=== PATIENT | male | born 1960 | race Two or more races ===

== ENCOUNTER 2016-05-30 20:31 | Emergency (ER) | payer MEDICARE, MEDICAID ==
[~2016-05-30] VITALS: Ht 170.2 cm; Wt 79.4 kg
[2016-05-30 21:31] VITALS: BP 121/80
[2016-05-30 21:41] LABS: EOSINOPHILS % (AUTO) 2.1 % (0.0-3.0); LYMPHOCYTES % (AUTO) 11.7 % (20.0-45.0); MEAN CORPUSCULAR HGB CONC 30.4 G/DL (32.0-36.0); MEAN CORPUSCULAR VOLUME 86 FL (80-99); MEAN PLATELET VOLUME 7.5 FL (6.5-10.1); MONOCYTES % (AUTO) 7.7 % (1.0-10.0); NEUTROPHILS % (AUTO) 77.6 % (45.0-75.0); PLATELET COUNT 220 K/UL (150-450); RED BLOOD COUNT 4.39 M/UL (4.70-6.10); RED CELL DISTRIBUTION WIDTH 15.1 % (11.6-14.8)
[2016-05-30 21:54] LABS: ALANINE AMINOTRANSFERASE 30 U/L (3-41); ALBUMIN/GLOBULIN RATIO 0.7 (1.0-2.7); ASPARTATE AMINO TRANSFERASE 35 U/L (5-40); CARBON DIOXIDE 25 mEQ/L (20-30); CHLORIDE 116 mEQ/L (98-107); GLOMERULAR FILTRATION RATE > 60 mL/min (>60); HEMOLYSIS 15; POTASSIUM 4.4 mEQ/L (3.4-4.9); SODIUM 130 mEQ/L (135-145); TOTAL PROTEIN 8.2 g/dL (6.6-8.7)
[2016-05-30 22:22] LABS: ABG ALLEN TEST POSITIVE; ABG BASE EXCESS 0; ABG PCO2 32.7 mmHg (35.0-45.0)
[2016-05-30] MEDS ORDERED: LEVETIRACETAM IVPB ONE (22:45)
[2016-05-30] MEDS ORDERED: D5W IVPB ONE (22:45)
[2016-05-30] MEDS ORDERED: levETIRAcetam 500mg vial IV ONE (23:13)
[2016-05-30 23:57] VITALS: BP 126/80
--- NOTE | 2016-06-02 06:44 | Emergency Room Report ---
History of Present Illness General Chief Complaint: Altered Level of Consciousness Source: Medical Record, EMS Present Illness HPI Patient is a 55-year-old male who presented after a reported altered level of consciousness. Patient recently been discharged from [facility] after being treated for subdural hematoma. The patient was noted to have had been taking Keppra. There is no seizure activity noted. The patient was sent in by her nursing facility who had had not seen the patient previously. Allergies: Coded Allergies: No Known Allergies (Unverified , 05/30/16) Nursing Documentation-[facility] Past Medical History: No History, Except For Hx Cardiac Problems: Yes - Skull fracture Hx Hypertension: Yes Hx Diabetes: Yes Review of Systems All Other Systems: limited - by mental status Physical Exam Vital Signs Date Time Temp Pulse Resp B/P Pulse Ox O2 Delivery O2 Flow Rate FiO2 05/30/16 20:25 107 14 121/80 97 Nasal Cannula 2.0 05/30/16 21:31 97.5 Sp02 EP Interpretation: reviewed, normal General Appearance: normal inspection, well appearing, no apparent distress, non-toxic, other - GCS [id number] Head: atraumatic Eyes: bilateral eye PERRL ENT: normal ENT inspection, hearing grossly normal, normal voice Neck: normal inspection, full range of motion, supple, no bony tend Respiratory: normal inspection, lungs clear, normal breath sounds, no respiratory distress, no retraction, no wheezing Cardiovascular #1: regular rate, rhythm, no edema Gastrointestinal: normal inspection, normal bowel sounds, non tender, soft, no guarding, no hernia Genitourinary: no CVA tenderness Musculoskeletal: normal inspection, back normal, normal range of motion Neurologic: normal inspection, alert, responsive, speech normal, oriented - to name Psychiatric: normal inspection, judgement/insight normal, mood/affect normal Skin: normal inspection, normal color, no rash Medical Decision Making Diagnostic Impression: Primary Impression: Encephalopathy Additional Impression: Post traumatic encephalopathy ER Course Patient presented for reported altered mental status.Differential diagnosis included but was not limited to ischemic stroke, subarachnoid hemorrhage, hypoglycemia, spinal cord injury, neurodegenerative disorder, urinary tract infection, hypoxemia. The patient was given IV Keppra in the emergency department. The patient was noted to have improvement in his mental status. Per the patient's old records the patient had waxing and waning mental status and appears to be at his baseline from discharge from [facility]. The patient was sent back to his facility. Last Vital Signs Date Time Temp Pulse Resp B/P Pulse Ox O2 Delivery O2 Flow Rate FiO2 05/30/16 23:57 97.5 80 18 126/80 99 Nasal Cannula 2.0 Status: improved Disposition: XFER SNF Condition: Stable Patient Instructions: Head Injury, Adult Iain Meyers Jun 02, 2016 06:44
== END 2016-05-31 00:04 ==
LOC: EDBD 20:31 → EMR 21:00
DX: G93.40 Encephalopathy, unspecified (principal); F07.81 Postconcussional syndrome; I10 Essential (primary) hypertension; E11.9 Type 2 diabetes mellitus without complications
CPT/HCPCS: 36415; 36600; 80053; 80300; 82803; 85025; 96374; 96375; 99284; J1953

== ENCOUNTER 2016-06-07 17:45 | Inpatient (IN) | payer MEDICARE, MEDICAID ==
[~2016-06-07] VITALS: Ht 180.3 cm; Wt 74.8 kg
[2016-06-07 18:57] LABS: MEAN CORPUSCULAR HEMOGLOBIN 25.3 PG (27.0-31.0); MEAN CORPUSCULAR HGB CONC 29.5 G/DL (32.0-36.0); MEAN CORPUSCULAR VOLUME 86 FL (80-99); MEAN PLATELET VOLUME 11.7 FL (6.5-10.1); PLATELET COUNT 66 K/UL (150-450); RED CELL DISTRIBUTION WIDTH 16.9 % (11.6-14.8); WHITE BLOOD COUNT 14.5 K/UL (4.8-10.8)
[2016-06-07 18:58] LABS: APPEARANCE,URINE CLEAR; KETONES,URINE NEGATIVE (NEGATIVE); LEUKOCYTE ESTERASE ,URINE 1+ (NEGATIVE); NITRITE,URINE NEGATIVE (NEGATIVE); PH,URINE 5 (4.5-8.0); PROTEIN,URINE 2+ (NEGATIVE); UROBILINOGEN,URINE 1 MG/DL (0.0-1.0)
[2016-06-07 19:15] LABS: AMORPHOUS SEDIMENT,UR FEW /LPF; BACTERIA,URINE FEW /HPF
[2016-06-07 19:24] VITALS: BP 104/67
[2016-06-07 19:24] LABS: ALANINE AMINOTRANSFERASE 43 U/L (3-41); ALBUMIN/GLOBULIN RATIO 0.8 (1.0-2.7); ANION GAP 30 (5-15); ASPARTATE AMINO TRANSFERASE 33 U/L (5-40); CALCIUM 10.3 mg/dL (8.6-10.2); CARBON DIOXIDE 12 mEQ/L (20-30); CHLORIDE 122 mEQ/L (98-107); CREATININE 5.6 mg/dL (0.7-1.2); GLOMERULAR FILTRATION RATE 10.5 mL/min (>60); HEMOLYSIS 8; MAGNESIUM 3.6 mg/dL (1.7-2.5); POTASSIUM 5.5 mEQ/L (3.4-4.9); TOTAL PROTEIN 9.1 g/dL (6.6-8.7)
[2016-06-07 19:33] LABS: SODIUM 164 mEQ/L (135-145)
--- NOTE | 2016-06-07 19:52 | Emergency Room Report ---
History of Present Illness General Chief Complaint: Altered Level of Consciousness Source: Medical Record, EMS Present Illness HPI 55 YO M BIBEMS for AMS. History of DM. No other history from patient, EMS unable to est access. No other interventions. Allergies: Coded Allergies: No Known Allergies (Unverified , 05/30/16) Patient History Past Medical History: unable to obtain, DM Past Surgical History: unable to obtain Pertinent Family History: unable to obtain Immunizations: UTD Reviewed Nursing Documentation: PMH: Agreed, PSxH: Agreed Nursing Documentation-PMH Hx Cardiac Problems: Yes - Skull fracture, muscle weakness Hx Hypertension: Yes Hx Diabetes: Yes Hx Seizures: Yes Review of Systems All Other Systems: limited - AMS Physical Exam Vital Signs Date Time Temp Pulse Resp B/P Pulse Ox O2 Delivery O2 Flow Rate FiO2 06/07/16 17:41 106 16 100/68 97 Nasal Cannula 2.0 06/07/16 18:51 100 Sp02 EP Interpretation: reviewed, abnormal General Appearance: normal inspection, well appearing, moderate distress Head: normocephalic, atraumatic Eyes: bilateral eye EOMI, bilateral eye PERRL ENT: normal ENT inspection, hearing grossly normal, normal voice Neck: normal inspection, full range of motion, supple, no bony tend Respiratory: normal inspection, lungs clear, normal breath sounds, no rhonchi, no respiratory distress, no retraction, no wheezing Cardiovascular #1: regular rate, rhythm, no edema Gastrointestinal: normal inspection, normal bowel sounds, non tender, soft, no guarding, no hernia Genitourinary: no CVA tenderness Neurologic: normal inspection, alert, faucet polisher III-XII nml as tested, motor strength /tone normal Skin: normal inspection Procedures Critical Care Time Critical Care Time 60 minutes Care for a 55 YO M with known DM history BIBEMS for AMS VS tachycardic, hypoxic, normotensive DDx includes ACS, infection, DKA Patient is disoriented, no obvious sign of trauma. Comprehensive physical exam completed, atraumatic. Unreliable history from patient. Labs include CBC, toxicology and chem panel, EKG 12 lead and constant cardiac rhythm strip monitoring, IV established. Airway adequately maintained by patient upon arrival. EKG reveals sinus tach Physician spent 60 minutes of direct critical care time monitoring patient's respiratory, cardiac and neurological status, reassessment, review of imaging, labs and discussion with attending hospitalist. Care included start of insulin gtt, metabolic management, admit to ICU Does not include procedures Medical Decision Making Diagnostic Impression: Primary Impression: Altered level of consciousness Additional Impressions: DKA (diabetic ketoacidoses) Qualified Codes: E13.10 - Other specified diabetes mellitus with ketoacidosis without coma Leukocytosis Qualified Codes: D72.829 - Elevated white blood cell count, unspecified ER Course 55 YOM with AMS found to be in DKA. Elevated glucose, bicarb 12, K 5.5, Na 164 , creat 5.6 2L IVF bolus given IV insulin gtt started ICU admission No obvious source of infection on CXR, UA. However given mild leuks 14K, IV levo given in ED against empiric infection Endorsed to Dr Del Cid at 831pm EKG Diagnostic Results Rate: normal, tachycardiac Rhythm: NSR ST Segments: no acute changes ASA given to the pt in ED: No Rhythm Strip Diag. Results EP Interpretation: yes Rate: 106 Rhythm: NSR, no PVC's, no ectopy Chest X-Ray Diagnostic Results EP Interpretation: Yes Findings: no consolidation, no effusion, no pneumothorax, no acute cardiopulmonary disease Number of Views: 1 Last Vital Signs Date Time Temp Pulse Resp B/P Pulse Ox O2 Delivery O2 Flow Rate FiO2 06/07/16 19:24 108 17 104/67 66 Non-Rebreather 15.0 100 Status: improved Disposition: ADMITTED INPATIENT Condition: Critical Referrals: RYANN FANG M.D. (PCP) GEORGETTE DELA CRUZ M.D. Jun 07, 2016 19:51
[2016-06-07 19:53] LABS: ABG ALLEN TEST POSITIVE; ABG BASE EXCESS -11.4; ABG PCO2 27.9 mmHg (35.0-45.0)
[2016-06-07] MEDS ORDERED: SENNA8.6 M2 PO (20:40)
[2016-06-07] MEDS ORDERED: METOPROLOL TAR100 M1 ORAL (20:40)
[2016-06-07] MEDS ORDERED: KEPPRA500 M4 ORAL (20:40)
[2016-06-07] MEDS ORDERED: LANTUS SOL100 UNIT/1 SUBQ (20:40)
[2016-06-07] MEDS ORDERED: TYLENOL650 MG/20. ORAL (20:40)
[2016-06-07] MEDS ORDERED: COLACE100 MG ORAL (20:40)
[2016-06-07] MEDS ORDERED: ALL DRIPS IN NORMAL SALINE MISC PRN (20:45)
[2016-06-07] MEDS: Levemir Flexpen SUBQ SCH (21:00)
[2016-06-07 21:08] VITALS: BP 124/77
[2016-06-07 21:20] VITALS: BP 111/68
[2016-06-07 22:27] LABS: ABG BASE EXCESS -11.9; ABG PCO2 28.7 mmHg (35.0-45.0)
[2016-06-07 22:31] LABS: ANISOCYTOSIS 1+; BAND NEUTROPHILS % (MANUAL) 3 % (0-8); LYMPHOCYTES % (MANUAL) 15 % (20-45); NEUTROPHILS % (MANUAL) 78 % (45-75); PLATELET MORPHOLOGY NORMAL; TOTAL CELLS COUNTED 100
[2016-06-07 22:32] LABS: BASOPHILS % (MANUAL) 0 % (0-2); EOSINOPHILS % (MANUAL) 0 % (0-3); PLATELET ESTIMATE DECREASED
[2016-06-07 23:00] VITALS: BP 112/83
[2016-06-08] VITALS (23 sets, daily range): BP systolic 76–117; BP diastolic 37–80
[2016-06-08] MEDS ORDERED: D5 1/2NS 1,000 ML IV SCH (02:30)
[2016-06-08 05:55] LABS: CALCIUM 8.8 mg/dL (8.6-10.2); CREATININE 4.8 mg/dL (0.7-1.2); GLOMERULAR FILTRATION RATE 12.6 mL/min (>60); POTASSIUM 4.4 mEQ/L (3.4-4.9)
[2016-06-08] MEDS ORDERED: NS IVPB SCH (08:00)
[2016-06-08] MEDS ORDERED: ZOSYN IVPB SCH (08:00)
--- NOTE | 2016-06-08 08:07 | General Progress Note ---
Assessment/Plan Problem List: (1) Acute renal failure ICD Codes: N17.9 - Acute kidney failure, unspecified SNOMED: 97403958 Qualifiers: Qualified Codes: N17.0 - Acute kidney failure with tubular necrosis (2) Encephalopathy ICD Codes: G93.40 - Encephalopathy, unspecified SNOMED: 47075777, 731060389 (3) DKA (diabetic ketoacidoses) ICD Codes: E13.10 - Other specified diabetes mellitus with ketoacidosis without coma SNOMED: 871438409, 87942179 Qualifiers: Qualified Codes: E13.11 - Other specified diabetes mellitus with ketoacidosis with coma (4) Leukocytosis ICD Codes: D72.829 - Elevated white blood cell count, unspecified SNOMED: 715868965, 690419696 Qualifiers: Qualified Codes: D72.829 - Elevated white blood cell count, unspecified (5) Altered level of consciousness ICD Codes: R40.4 - Transient alteration of awareness SNOMED: 4061288 Status: progressing Assessment/Plan cont aggressive IVF insulin drip IV abx follow up cultures endo and renal eval pending critical and guarded monitor labs wean o2 renal reinaldo Subjective ROS Limited/Unobtainable: Yes Constitutional: Reports: malaise, weakness HEENT: Reports: no symptoms Cardiovascular: Reports: no symptoms Respiratory: Reports: cough, shortness of breath Gastrointestinal/Abdominal: Reports: no symptoms Genitourinary: Reports: no symptoms Neurologic/Psychiatric: Reports: pre-existing deficit, seizure Endocrine: Reports: no symptoms Hematologic/Lymphatic: Reports: no symptoms Allergies: Coded Allergies: No Known Allergies (Unverified , 05/30/16) All Systems: reviewed and negative except above Subjective remains on insulin drip. o2 requirements. confused. labs reviewed. decreased uop. Objective Last 24 Hour Vital Signs Date Time Temp Pulse Resp B/P Pulse Ox O2 Delivery O2 Flow Rate FiO2 06/08/16 06:38 115 21 117/80 100 Nasal Cannula 2.0 06/08/16 05:00 97.7 106 29 99/66 98 Nasal Cannula 2.0 06/08/16 04:00 108 22 100/73 95 Nasal Cannula 2.0 06/08/16 03:00 109 21 108/80 98 Nasal Cannula 4.0 06/08/16 02:00 108 21 108/75 96 Nasal Cannula 4.0 06/08/16 01:00 106 21 108/73 94 Room Air 06/08/16 00:00 105 22 105/73 95 Room Air 06/07/16 23:00 108 22 112/83 96 Room Air 06/07/16 21:20 98.7 108 26 111/68 99 Room Air 06/07/16 21:08 110 18 124/77 79 Non-Rebreather 15.0 100 06/07/16 19:24 108 17 104/67 66 Non-Rebreather 15.0 100 06/07/16 19:00 96 Non-Rebreather 15.0 100 06/07/16 19:00 Non-Rebreather 15.0 100 06/07/16 18:51 115 15 Non-Rebreather 15.0 100 06/07/16 17:41 106 16 100/68 97 Nasal Cannula 2.0 Intake and Output 06/07/16 06/08/16 19:00 07:00 Intake Total 50 ml Output Total 20 ml Balance -20 ml 50 ml Intake IV Total 50 ml Output Urine Total 20 ml Laboratory Tests 06/07/16 18:15: White Blood Count 14.5H, Red Blood Count 5.10, Hemoglobin 12.9L, Hematocrit 43.7 , Mean Corpuscular Volume 86, Mean Corpuscular Hemoglobin 25.3L, Mean Corpuscular Hemoglobin Concent 29.5L, Red Cell Distribution Width 16.9H, Platelet Count 66L, Mean Platelet Volume 11.7H, Neutrophils (%) (Auto) , Lymphocytes (%) (Auto) , Monocytes (%) (Auto) , Eosinophils (%) (Auto) , Basophils (%) (Auto) , Differential Total Cells Counted 100, Neutrophils % ( Manual) 78H, Lymphocytes % (Manual) 15L, Monocytes % (Manual) 4, Eosinophils % ( Manual) 0, Basophils % (Manual) 0, Band Neutrophils 3, Platelet Estimate DecreasedL, Platelet Morphology Normal, Anisocytosis 1+, Sodium Level 164*H, Potassium Level 5.5H, Chloride Level 122H, Carbon Dioxide Level 12L, Anion Gap 30H, Blood Urea Nitrogen 96H, Creatinine 5.6H, Estimat Glomerular Filtration Rate 10.5, Glucose Level 612*H, Calcium Level 10.3H, Magnesium Level 3.6H, Total Bilirubin 0.9, Aspartate Amino Transf (AST/SGOT) 33, Alanine Aminotransferase (ALT/SGPT) 43H, Alkaline Phosphatase 175H, Total Protein 9.1H, Albumin 4.1, Globulin 5.0, Albumin/Globulin Ratio 0.8L, Acetone Level Negative 06/07/16 18:40: Urine Color Yellow, Urine Appearance Clear, Urine pH 5, Urine Specific [place] 1.025, Urine Protein 2+H, Urine Glucose (UA) 3+H, Urine Ketones Negative, Urine Occult Blood 3+H, Urine Nitrite Negative, Urine Bilirubin Negative, Urine Urobilinogen 1H, Urine Leukocyte Esterase 1+H, Urine RBC 5-10H, Urine WBC 2-4, Urine Squamous Epithelial Cells None, Urine Amorphous Sediment FewH, Urine Bacteria Few 06/07/16 19:42: Arterial Blood pH 7.289L, Arterial Blood Partial Pressure CO2 27.9L, Arterial Blood Partial Pressure O2 294.4H, Arterial Blood HCO3 13.9L, Arterial Blood Oxygen Saturation 99.2H, Arterial Blood Base Excess -11.4, Tommy Test Positive 06/07/16 22:00: Arterial Blood pH 7.287L, Arterial Blood Partial Pressure CO2 28.7L, Arterial Blood Partial Pressure O2 77.9, Arterial Blood HCO3 13.4L, Arterial Blood Oxygen Saturation 92.7, Arterial Blood Base Excess -11.9, Tommy Test N/a 06/08/16 05:20: Sodium Level 168*H, Potassium Level 4.4, Chloride Level 133H, Carbon Dioxide Level 16L, Anion Gap 19H, Blood Urea Nitrogen 92H, Creatinine 4.8H, Estimat Glomerular Filtration Rate 12.6, Glucose Level 269#H, Calcium Level 8.8 Height (Feet): 5 Height (Inches): 11.00 Weight (Pounds): 165 General Appearance: WD/WN, confused Neck: supple Cardiovascular: tachycardia Respiratory/Chest: rhonchi - bilaterally Abdomen: normal bowel sounds, non tender, soft, no organomegaly, no mass Edema: no edema noted Arm (L), no edema noted Arm (R), no edema noted Leg (L), no edema noted Leg (R), no edema noted Pedal (L), no edema noted Pedal (R), no edema noted Generalized Neurologic: disoriented Skin: warm/dry DARYN JEREZ Jun 08, 2016 08:07
[2016-06-08] MEDS ORDERED: Zosyn 2.25gm inj ONE (08:09)
[2016-06-08] MEDS ORDERED: Docusate 100mg cap ORAL SCH (09:00)
[2016-06-08] MEDS: Levemir Flexpen SUBQ SCH ×2 (09:00→21:09)
[2016-06-08 09:26] LABS: ABG BASE EXCESS -11.9
[2016-06-08] MEDS: levETIRAcetam 500mg/5ml Liquid NG SCH ×2 (11:08→21:07)
[2016-06-08] MEDS: Docusate 100mg tablet NG SCH ×2 (11:08→17:29)
[2016-06-08] MEDS: Insulin Rate Change 1 Each MISC PRN ×9 (12:09→21:11)
[2016-06-08] MEDS ORDERED: Piperacillin/Tazobactam 2.25 GM in D5W 55 ML IVPB SCH (14:00)
--- NOTE | 2016-06-08 20:18 | History and Physical Report ---
DATE OF ADMISSION: 06/07/2016 HISTORY OF PRESENT ILLNESS: This patient was seen in the emergency room on 06/07/2016 in the evening at approximately 9 o'clock. The patient is a 55-year-old male. He has a history of traumatic encephalopathy, diabetes, hypertension, seizure disorder, and hypertensive heart disease. He has prior evidence of a sternotomy. He presented from a care home facility with complaints of diabetes out of control. On evaluation in the emergency room, the patient was noted to be hypoxic and diabetic ketoacidosis. He was started on intravenous fluids and antibiotics. He will be started on insulin drip and is now admitted for further evaluation and care. He is confused and is unable to provide any history. PAST MEDICAL HISTORY: As above. PAST SURGICAL HISTORY: Includes a prior history of sternotomy. CURRENT MEDICATIONS: Reconciled and reviewed. ALLERGIES: None. FAMILY HISTORY: Unknown. SOCIAL HISTORY: There is no known history of tobacco, ethanol, or drugs. REVIEW OF SYSTEMS: Unobtainable, as the patient is confused. PHYSICAL EXAMINATION: VITAL SIGNS: Temperature 98 degrees, blood pressure 117/80, pulse of 115, and respirations 21. The patient is a chronic ill-appearing male, in no apparent distress. He is awake, but confused. HEENT: Pupils are equal, round, and reactive to light. Oropharynx is clear. NECK: Supple. HEART: Regular rate and rhythm. LUNGS: Scattered rhonchi. ABDOMEN: Soft, nontender, and nondistended. EXTREMITIES: Without clubbing, cyanosis, or edema. LABORATORY DATA: Sodium is 164, potassium 5.5, chloride 122, bicarb 12, BUN 96, creatinine 5.6, and glucose 612. White count was [address]. ASSESSMENT: 1. This is an elderly male admitted with diabetic ketoacidosis and possible sepsis post diabetic ketoacidosis. 2. Acute renal failure. 3. Sepsis. 4. Encephalopathy. PLAN: 1. Aggressive fluid resuscitation. 2. Continue insulin drip. 3. Endo, ID, Cardiology, and Renal consultations to be obtained. 4. The patient received DVT and stress ulcer prophylaxes. 5. Follow up cultures. 6. The patient's status is currently critical and guarded. Raul Del Cid M.D. DR: JORDAN JOB#: [id number] CC:
--- NOTE | 2016-06-08 20:37 | Consultation ---
DATE OF CONSULTATION: 06/08/2016 INFECTIOUS DISEASE CONSULTATION This consult is for coverage of Dr. Bowles. CONSULTING PHYSICIAN: Maxime Corbin M.D. PRIMARY ATTENDING PHYSICIAN: Raul Del Cid M.D. REASON FOR CONSULTATION: Sepsis. HISTORY OF PRESENT ILLNESS: The patient is a 55-year-old male admitted last night from nursing facility because of altered mental status. The patient was found to have hyperglycemia with a blood sugar of 612, hypernatremia, acute renal failure, was tachycardic, and had leukocytosis, admitted to ICU with the impression of the diabetic ketoacidosis and started empirically on antibiotic and receiving IV fluids. PAST MEDICAL HISTORY: Significant for diabetes mellitus type 2, hypertension, had history of brain injury and skull fracture, and had dysphagia. MEDICATIONS: Getting Colace, Keppra, metoprolol, regular insulin, IV drip, sodium chloride, and Levemir insulin. ALLERGIES: No known drug allergies. SOCIAL HISTORY: Unobtainable. No other history is obtainable by the patient. PHYSICAL EXAMINATION: VITAL SIGNS: Temperature 97.7 degrees, blood pressure 111/72, and pulse is 117. GENERAL APPEARANCE: Noncommunicative, confused, and seems well developed. HEAD AND NECK: [place] conjunctivae. Dry mouth. HEART: Tachycardic. The patient has a scar of thoracotomy. LUNGS: Clear. ABDOMEN: Soft and nontender. EXTREMITIES: He has no edema. He has peripheral line. NEUROLOGIC: Moves right upper extremity. LABORATORY DATA: WBC 14.5, hemoglobin 12.9, hematocrit 43.7, and platelets 66,000. Sodium 168, potassium 4.4, chloride 133, bicarbonate 16, BUN 92, and creatinine 4.8. Lipase 359. AST 32, ALT 43, and alkaline phosphatase is 175. Total protein is 9.1. Acetone was negative. UA showed RBC of 5 to 10, leukocyte esterase 1+, and WBC 2 to 4. Blood gas in addition to acidosis showed decreased pO2. IMPRESSION: Sepsis. Systemic inflammatory response syndrome, likely secondary to diabetic ketoacidosis. The patient has hypernatremia, acute renal failure, dehydration, thrombocytopenia, seems to have previous brain injury. RECOMMENDATIONS: We will continue with Zosyn. We will check up renal ultrasound. At the end of my exam, I thank Dr. Del Cid for involving me in the care of this patient. Maxime Corbin M.D. DR: LISA JOB#: [id number] CC:
[2016-06-08] MEDS: Metoprolol 25mg tab ORAL SCH (21:00)
[2016-06-08] MEDS: Piperacillin/Tazobactam 3.375 GM in NS 110 ML IVPB SCH (21:07)
[2016-06-09] VITALS (24 sets, daily range): BP systolic 94–139; BP diastolic 51–80
--- NOTE | 2016-06-09 00:57 | Consultation ---
DATE OF CONSULTATION: REFERRING PHYSICIAN: Raul Del Cid M.D. REASON FOR CONSULTATION: 1. Renal failure. 2. Diabetic ketoacidosis HISTORY OF PRESENT ILLNESS: The patient presents with lethargy and abnormal labs. There is only brief notes that came on transfer. The patient apparently had bilateral occipital fractures, bilateral traumatic hemorrhages, subdural hematoma, and prior intubation and treatment of the above, and traumatic encephalopathy. He also has coronary disease, history of prior coronary surgery, and left ventricular hypertrophy. The patient came to an [facility] on 05/31/2016 as transfer with diabetic ketoacidosis. He is unable to provide any further history. His problem list includes diabetes type 2, seizure disorder, hypertensive urgency, atherosclerotic heart disease, generalized muscle weakness, dysphagia, history of fall. MEDICATIONS: On transfer from the facility include the following, Lantus 30 units daily, Keppra 500 mg twice a day, metoprolol 7.5 mg twice a day, Seroquel 25 mg every eight hours as needed, as needed for Colace and senna, insulin sliding scale. REVIEW OF SYSTEMS: The patient is unable. PHYSICAL EXAMINATION: GENERAL: The patient is lying in bed in the ICU. VITAL SIGNS: Pulse 76, respirations 19, blood pressure 76/48, pulse oximetry 90% on two liters. HEENT: Oral mucosa is dry. Sclerae are nonicteric. NECK: No adenopathy. LUNGS: Clear. HEART: Regular rhythm. No murmur. ABDOMEN: Soft without organomegaly. EXTREMITIES: Trace edema. NEUROLOGIC: The patient is lethargic. He opens his eyes to irritative stimuli. He looks in all directions and appears to have facial asymmetry. He is weak in all four extremities. PERTINENT LABORATORY DATA: Show white count of 14.5, hemoglobin 12.9. Sodium 164, repeat 168, potassium 5.5, repeat 4.4, BUN 96, repeat 92, and creatinine 5.6, repeat 4.8 with a glucose of 612 repeat 269. Urinalysis shows 2 to 4 white cells, 5 to 10 red cells per high-power field, 2+ protein, 3+, glucose, acetone negative . IMPRESSION: 1. Acute kidney injury likely from dehydration and diabetic ketoacidosis or uncontrolled diabetes. 2. Uncontrolled diabetes. 3. Hypernatremia. 4. 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 5. Coronary disease. PLAN: The patient to have vigorous hydration, monitoring his glucose, watch him closely in view of his comorbid condition. Condition is grave. Detailed intensive care unit orders were reviewed and amended. Ed Sahu M.D. DR: Cassi JOB#: [id number] CC:
[2016-06-09] MEDS: Insulin Rate Change 1 Each MISC PRN ×14 (02:07→22:53)
--- NOTE | 2016-06-09 04:57 | Consultation ---
DATE OF CONSULTATION: 06/08/2016 CARDIOLOGY CONSULTATION REQUESTING PHYSICIAN: Raul Del Cid M.D. REASON: Hypotension. HISTORY OF PRESENT ILLNESS: Last evening, this 55-year-old male was admitted to the hospital with uncontrolled diabetes. He was noted to be hypoxic and in diabetic ketoacidosis. He was started on IV fluids, empiric antibiotics, and an insulin drip. This afternoon, he became progressively hypotensive. I have been asked to assist with further management. The patient is unable to give any history. Records are reviewed. PAST MEDICAL HISTORY: As follows: History of traumatic encephalopathy, history of median sternotomy, seizure disorder, hypertension, and insulin-requiring diabetes mellitus. ALLERGIES: None. MEDICATIONS: Reviewed. SOCIAL HISTORY: No record of smoking or alcohol use. No known history of drug abuse. REVIEW OF SYSTEMS: Not obtainable. PHYSICAL EXAMINATION: VITAL SIGNS: Blood pressure is 79/40, heart rate 77, respiratory rate 20, he is afebrile, and oxygen saturation is 98% on two liters nasal cannula. HEENT: Conjunctivae are pink. Sclerae are anicteric. Oropharynx clear. Mucous membranes dry. NECK: Supple. Jugular venous pressure flat. LUNGS: Clear. CHEST: The patient has a median sternotomy scar. CARDIAC: Regular rhythm and rate. Normal S1 and S2 with no murmur, rub, or gallop. ABDOMEN: Soft with no hepatomegaly. EXTREMITIES: With trace dependent edema. Early ischemic changes of distal digits. NEUROLOGIC: He is withdrawn, lethargic with some facial asymmetry. He is non-communicative. LABORATORY AND DIAGNOSTIC DATA: White count 14.5, hemoglobin 12.9. Sodium 168, potassium 4.4, BUN 92, creatinine 4.8, and glucose initially 612, now 269. Urinalysis only 2 to 4 white cells. Lipase 359. Chest x-ray with no acute process. IMPRESSION: 1. Sepsis. 2. Systemic inflammatory response syndrome. 3. Diabetic ketoacidosis. 4. Hypovolemic shock. 5. Severe dehydration and hypernatremia. 6. Thrombocytopenia. 7. Acute renal failure. 8. Encephalopathy due to prior traumatic brain injury. RECOMMENDATIONS: Recommend broad-spectrum antibiotics per Infectious Disease educational consultant. Fluid challenge. Once blood pressure is stabilized above 80 systolic, hypotonic IV fluids can be resumed. May need pressor support with dopamine if this is ineffective. DVT and stress ulcer prophylaxis in place. Diagnostic ultrasound for evaluation of of sepsis. Morales Serrano M.D. DR: PAYAM JOB#: [id number] CC: ESME
[2016-06-09 05:22] LABS: MEAN CORPUSCULAR HEMOGLOBIN 25.1 PG (27.0-31.0); MEAN CORPUSCULAR HGB CONC 30.6 G/DL (32.0-36.0); MEAN CORPUSCULAR VOLUME 82 FL (80-99); MEAN PLATELET VOLUME 10.2 FL (6.5-10.1); PLATELET COUNT 30 K/UL (150-450); RED BLOOD COUNT 3.67 M/UL (4.70-6.10); RED CELL DISTRIBUTION WIDTH 17.2 % (11.6-14.8); WHITE BLOOD COUNT 15.1 K/UL (4.8-10.8)
[2016-06-09 06:06] LABS: ALBUMIN/GLOBULIN RATIO 0.6 (1.0-2.7); CALCIUM 8.1 mg/dL (8.6-10.2); CREATININE 5.9 mg/dL (0.7-1.2); GLOMERULAR FILTRATION RATE 9.9 mL/min (>60); POTASSIUM 4.3 mEQ/L (3.4-4.9); TOTAL PROTEIN 6.6 g/dL (6.6-8.7)
[2016-06-09 06:58] LABS: TROPONIN I < 0.30 ng/mL (<=0.30)
[2016-06-09 07:25] LABS: ANISOCYTOSIS 1+; BAND NEUTROPHILS % (MANUAL) 0 % (0-8); BASOPHILS % (MANUAL) 0 % (0-2); EOSINOPHILS % (MANUAL) 0 % (0-3); HYPOCHROMASIA 2+; LYMPHOCYTES % (MANUAL) 12 % (20-45); NEUTROPHILS % (MANUAL) 86 % (45-75); NUCLEATED RED BLOOD CELLS 6 /100 WBC; PLATELET ESTIMATE DECREASED; PLATELET MORPHOLOGY NORMAL; TOTAL CELLS COUNTED 100
[2016-06-09] MEDS: Metoprolol 25mg tab ORAL SCH ×2 (08:10→21:37)
[2016-06-09] MEDS: levETIRAcetam 500mg/5ml Liquid NG SCH ×2 (08:15→21:37)
[2016-06-09] MEDS: Docusate 100mg tablet NG SCH ×2 (08:15→18:00)
[2016-06-09] MEDS: Piperacillin/Tazobactam 3.375 GM in NS 110 ML IVPB SCH ×2 (08:15→21:36)
[2016-06-09] MEDS: Pantoprazole Inj IVP SCH (08:16)
[2016-06-09] MEDS: Levemir Flexpen SUBQ SCH ×2 (08:19→21:20)
--- NOTE | 2016-06-09 11:31 | Infectious Diseases Prog Note ---
Assessment/Plan Assessment/Plan antibiotics : zosyn A 1. leucocytosis 2. renal failure 3. nasal MRSA colonization 4. increased LFT 5. thrombocytopenia P 1. continue zosyn 2. will follow up cultures 3. US abdomen Subjective ROS Limited/Unobtainable: Yes Allergies: Coded Allergies: No Known Allergies (Unverified , 05/30/16) Objective Vital Signs Last 24 Hour Vital Signs Date Time Temp Pulse Resp B/P Pulse Ox O2 Delivery O2 Flow Rate FiO2 06/09/16 11:00 87 25 111/63 100 Nasal Cannula 2.0 06/09/16 10:00 82 24 99/60 94 Nasal Cannula 2.0 06/09/16 09:00 84 24 101/51 92 Nasal Cannula 2.0 06/09/16 08:10 90 101/67 06/09/16 08:00 82 06/09/16 08:00 98.6 84 26 109/63 100 Nasal Cannula 2.0 06/09/16 07:00 84 26 115/63 100 Nasal Cannula 2.0 06/09/16 06:00 87 26 116/80 100 Nasal Cannula 2.0 06/09/16 05:00 84 26 114/52 99 Nasal Cannula 2.0 06/09/16 04:00 93 06/09/16 04:00 98.9 92 22 125/60 99 Nasal Cannula 2.0 06/09/16 03:00 94 25 102/62 97 Nasal Cannula 2.0 06/09/16 02:00 91 20 105/58 96 Nasal Cannula 2.0 06/09/16 01:00 90 30 107/64 95 Nasal Cannula 2.0 06/09/16 00:00 88 06/09/16 00:00 88 31 99/54 94 Nasal Cannula 2.0 06/08/16 23:00 98.4 93 20 102/57 95 Nasal Cannula 2.0 06/08/16 22:00 83 29 93/49 95 Nasal Cannula 2.0 06/08/16 21:00 82 94/53 06/08/16 21:00 84 31 89/51 96 Nasal Cannula 2.0 06/08/16 20:00 97.9 80 19 94/46 97 Nasal Cannula 2.0 06/08/16 20:00 77 06/08/16 19:01 76 19 76/48 98 Nasal Cannula 2.0 06/08/16 19:00 98 Nasal Cannula 2.0 28 06/08/16 19:00 Nasal Cannula 2.0 28 06/08/16 18:00 76 19 78/41 98 Nasal Cannula 2.0 06/08/16 17:00 77 20 79/40 98 Nasal Cannula 2.0 06/08/16 16:00 98.0 80 20 79/54 98 Nasal Cannula 2.0 06/08/16 16:00 78 06/08/16 15:00 78 20 79/37 98 Nasal Cannula 2.0 06/08/16 14:00 82 20 81/56 98 Nasal Cannula 2.0 06/08/16 13:06 86 19 89/54 98 Nasal Cannula 2.0 06/08/16 12:00 98.2 91 22 102/69 99 Nasal Cannula 2.0 06/08/16 12:00 116 Height (Feet): 5 Height (Inches): 11.00 Weight (Pounds): 165 Respiratory/Chest: lungs clear Cardiovascular: normal rate, regular rhythm, no gallop/murmur Abdomen: soft, non tender Extremities: other - + edema Microbiology Date/Time Source Procedure Growth Status 06/07/16 20:45 Nasal Nares MRSA Culture - Final Staphylococcus Aureus - Mrsa Complete Laboratory Tests Test 06/09/16 04:05 White Blood Count 15.1 K/UL (4.8-10.8) H Red Blood Count 3.67 M/UL (4.70-6.10) L Hemoglobin 9.2 G/DL (14.2-18.0) L Hematocrit 30.0 % (42.0-52.0) #L Mean Corpuscular Volume 82 FL (80-99) Mean Corpuscular Hemoglobin 25.1 PG (27.0-31.0) L Mean Corpuscular Hemoglobin Concent 30.6 G/DL (32.0-36.0) L Red Cell Distribution Width 17.2 % (11.6-14.8) H Platelet Count 30 K/UL (150-450) #L Mean Platelet Volume 10.2 FL (6.5-10.1) H Neutrophils (%) (Auto) % (45.0-75.0) Lymphocytes (%) (Auto) % (20.0-45.0) Monocytes (%) (Auto) % (1.0-10.0) Eosinophils (%) (Auto) % (0.0-3.0) Basophils (%) (Auto) % (0.0-2.0) Differential Total Cells Counted 100 Neutrophils % (Manual) 86 % (45-75) H Lymphocytes % (Manual) 12 % (20-45) L Monocytes % (Manual) 2 % (1-10) Eosinophils % (Manual) 0 % (0-3) Basophils % (Manual) 0 % (0-2) Band Neutrophils 0 % (0-8) Nucleated Red Blood Cells 6 /100 WBC Platelet Estimate Decreased L Platelet Morphology Normal Hypochromasia 2+ Anisocytosis 1+ Sodium Level 165 mEQ/L (135-145) *H Potassium Level 4.3 mEQ/L (3.4-4.9) Chloride Level 130 mEQ/L (98-107) H Carbon Dioxide Level 13 mEQ/L (20-30) L Anion Gap 22 (5-15) H Blood Urea Nitrogen 107 mg/dL (7-23) H Creatinine 5.9 mg/dL (0.7-1.2) H Estimat Glomerular Filtration Rate 9.9 mL/min (>60) Glucose Level 234 mg/dL (74-106) H Calcium Level 8.1 mg/dL (8.6-10.2) L Magnesium Level 2.4 mg/dL (1.7-2.5) Total Bilirubin 0.6 mg/dL (0.0-1.2) Aspartate Amino Transf (AST/SGOT) 1034 U/L (5-40) H Alanine Aminotransferase (ALT/SGPT) 782 U/L (3-41) H Alkaline Phosphatase 131 U/L (40-129) H Troponin I < 0.30 ng/mL (<=0.30) Total Protein 6.6 g/dL (6.6-8.7) Albumin 2.7 g/dL (3.5-5.2) L Globulin 3.9 g/dL Albumin/Globulin Ratio 0.6 (1.0-2.7) L COLTON GONZALEZ Jun 09, 2016 11:30
[2016-06-09] MEDS ORDERED: Heparin 5000 units/ml inj IV ONE (12:45)
[2016-06-09] MEDS ORDERED: Heparin 25,000u/D5W 500ml 500 ML IV SCH (12:45)
[2016-06-09] MEDS ORDERED: Heparin 2000 units/Ns 1000ml INJ ONE (13:00)
[2016-06-09] MEDS ORDERED: Lidocaine 1% Plain 30 ml INJ ONE (13:00)
[2016-06-09] MEDS ORDERED: NS 55ml IV ONE (13:21)
[2016-06-09 13:34] LABS: INR 1.2 (0.9-1.1); PROTHROMBIN TIME 11.8 SEC (9.30-11.50)
--- NOTE | 2016-06-09 15:24 | General Progress Note ---
Assessment/Plan Problem List: (1) Acute renal failure ICD Codes: N17.9 - Acute kidney failure, unspecified SNOMED: 11650496 Qualifiers: Qualified Codes: N17.0 - Acute kidney failure with tubular necrosis (2) Encephalopathy ICD Codes: G93.40 - Encephalopathy, unspecified SNOMED: 07205484, 845430807 (3) DKA (diabetic ketoacidoses) ICD Codes: E13.10 - Other specified diabetes mellitus with ketoacidosis without coma SNOMED: 766229668, 11194070 Qualifiers: Qualified Codes: E13.11 - Other specified diabetes mellitus with ketoacidosis with coma (4) Leukocytosis ICD Codes: D72.829 - Elevated white blood cell count, unspecified SNOMED: 789113887, 270637148 Qualifiers: Qualified Codes: D72.829 - Elevated white blood cell count, unspecified (5) Altered level of consciousness ICD Codes: R40.4 - Transient alteration of awareness SNOMED: 6909277 Status: stable, progressing Assessment/Plan cont aggressive IVF insulin drip IV abx follow up cultures endo and renal appreciated. critical and guarded monitor labs wean o2 renal/abd reinaldo serial abd exam critical and guarded dw family may need hd Subjective ROS Limited/Unobtainable: Yes Constitutional: Reports: malaise, weakness HEENT: Reports: no symptoms Cardiovascular: Reports: no symptoms Respiratory: Reports: no symptoms Gastrointestinal/Abdominal: Reports: no symptoms Genitourinary: Reports: no symptoms Neurologic/Psychiatric: Reports: pre-existing deficit Endocrine: Reports: no symptoms Hematologic/Lymphatic: Reports: no symptoms Allergies: Coded Allergies: No Known Allergies (Unverified , 05/30/16) All Systems: reviewed and negative except above Subjective remains on insulin drip. o2 requirements. confused. labs reviewed. uop slightly better. +abd distention. Objective Last 24 Hour Vital Signs Date Time Temp Pulse Resp B/P Pulse Ox O2 Delivery O2 Flow Rate FiO2 06/09/16 15:00 89 28 133/67 94 Nasal Cannula 2.0 06/09/16 14:00 91 28 139/60 100 Nasal Cannula 2.0 06/09/16 13:00 90 24 123/69 100 Nasal Cannula 2.0 06/09/16 12:00 98.5 91 24 105/71 100 Nasal Cannula 2.0 06/09/16 12:00 91 1/13/17 11:00 87 25 111/63 100 Nasal Cannula 2.0 06/09/16 10:00 82 24 99/60 94 Nasal Cannula 2.0 06/09/16 09:00 84 24 101/51 92 Nasal Cannula 2.0 06/09/16 08:10 90 101/67 06/09/16 08:00 82 06/09/16 08:00 98.6 84 26 109/63 100 Nasal Cannula 2.0 06/09/16 07:00 84 26 115/63 100 Nasal Cannula 2.0 06/09/16 06:00 87 26 116/80 100 Nasal Cannula 2.0 06/09/16 05:00 84 26 114/52 99 Nasal Cannula 2.0 06/09/16 04:00 93 06/09/16 04:00 98.9 92 22 125/60 99 Nasal Cannula 2.0 06/09/16 03:00 94 25 102/62 97 Nasal Cannula 2.0 06/09/16 02:00 91 20 105/58 96 Nasal Cannula 2.0 06/09/16 01:00 90 30 107/64 95 Nasal Cannula 2.0 06/09/16 00:00 88 06/09/16 00:00 88 31 99/54 94 Nasal Cannula 2.0 06/08/16 23:00 98.4 93 20 102/57 95 Nasal Cannula 2.0 06/08/16 22:00 83 29 93/49 95 Nasal Cannula 2.0 06/08/16 21:00 82 94/53 06/08/16 21:00 84 31 89/51 96 Nasal Cannula 2.0 06/08/16 20:00 97.9 80 19 94/46 97 Nasal Cannula 2.0 06/08/16 20:00 77 06/08/16 19:01 76 19 76/48 98 Nasal Cannula 2.0 06/08/16 19:00 98 Nasal Cannula 2.0 28 06/08/16 19:00 Nasal Cannula 2.0 28 06/08/16 18:00 76 19 78/41 98 Nasal Cannula 2.0 06/08/16 17:00 77 20 79/40 98 Nasal Cannula 2.0 06/08/16 16:00 98.0 80 20 79/54 98 Nasal Cannula 2.0 06/08/16 16:00 78 Intake and Output 06/08/16 06/09/16 19:00 07:00 Intake Total 1536.8 ml 3323.2 ml Output Total 350 ml 315 ml Balance 1186.8 ml 3008.2 ml Intake IV Total 1476.8 ml 3143.2 ml Other 60 ml 180 ml Output Urine Total 350 ml 315 ml Laboratory Tests 06/09/16 04:05: White Blood Count 15.1H, Red Blood Count 3.67L, Hemoglobin 9.2L, Hematocrit 30.0 #L, Mean Corpuscular Volume 82, Mean Corpuscular Hemoglobin 25.1L, Mean Corpuscular Hemoglobin Concent 30.6L, Red Cell Distribution Width 17.2H, Platelet Count 30#L, Mean Platelet Volume 10.2H, Neutrophils (%) (Auto) , Lymphocytes (%) (Auto) , Monocytes (%) (Auto) , Eosinophils (%) (Auto) , Basophils (%) (Auto) , Differential Total Cells Counted 100, Neutrophils % ( Manual) 86H, Lymphocytes % (Manual) 12L, Monocytes % (Manual) 2, Eosinophils % ( Manual) 0, Basophils % (Manual) 0, Band Neutrophils 0, Nucleated Red Blood Cells 6, Platelet Estimate DecreasedL, Platelet Morphology Normal, Hypochromasia 2+, Anisocytosis 1+, Sodium Level 165*H, Potassium Level 4.3, Chloride Level 130H, Carbon Dioxide Level 13L, Anion Gap 22H, Blood Urea Nitrogen 107H, Creatinine 5.9H, Estimat Glomerular Filtration Rate 9.9, Glucose Level 234H, Calcium Level 8.1L, Magnesium Level 2.4, Total Bilirubin 0.6, Aspartate Amino Transf (AST/SGOT) 1034H, Alanine Aminotransferase (ALT/SGPT) 782H, Alkaline Phosphatase 131H, Troponin I < 0.30, Total Protein 6.6, Albumin 2.7L, Globulin 3.9, Albumin/Globulin Ratio 0.6L 06/09/16 12:35: Prothrombin Time 11.8H, Prothromb Time International Ratio 1.2H, Activated Partial Thromboplast Time 24 Height (Feet): 5 Height (Inches): 11.00 Weight (Pounds): 165 General Appearance: WD/WN, confused Neck: supple Cardiovascular: normal rate Respiratory/Chest: lungs clear Abdomen: normal bowel sounds, non tender, soft, distended Edema: no edema noted Arm (L), no edema noted Arm (R), no edema noted Leg (L), no edema noted Leg (R), no edema noted Pedal (L), no edema noted Pedal (R), no edema noted Generalized DARYN JEREZ Jun 09, 2016 15:24
--- NOTE | 2016-06-09 16:21 | Nephrology Progress Note ---
Assessment/Plan Problem List: (1) Hypovolemic shock (2) Metabolic acidosis (3) Hypernatremia (4) Altered level of consciousness (5) Acute renal failure (6) Encephalopathy Plan creatinine 1.4 04/2016 continue hydration, +bicarb,serial lytes Subjective ROS Limited/Unobtainable: Yes Objective Objective Last 24 Hour Vital Signs Date Time Temp Pulse Resp B/P Pulse Ox O2 Delivery O2 Flow Rate FiO2 06/09/16 15:00 89 28 133/67 94 Nasal Cannula 2.0 06/09/16 14:00 91 28 139/60 100 Nasal Cannula 2.0 06/09/16 13:00 90 24 123/69 100 Nasal Cannula 2.0 06/09/16 12:00 98.5 91 24 105/71 100 Nasal Cannula 2.0 06/09/16 12:00 91 06/09/16 11:00 87 25 111/63 100 Nasal Cannula 2.0 06/09/16 10:00 82 24 99/60 94 Nasal Cannula 2.0 06/09/16 09:00 84 24 101/51 92 Nasal Cannula 2.0 06/09/16 08:10 90 101/67 06/09/16 08:00 82 06/09/16 08:00 98.6 84 26 109/63 100 Nasal Cannula 2.0 06/09/16 07:00 84 26 115/63 100 Nasal Cannula 2.0 06/09/16 06:00 87 26 116/80 100 Nasal Cannula 2.0 06/09/16 05:00 84 26 114/52 99 Nasal Cannula 2.0 06/09/16 04:00 93 06/09/16 04:00 98.9 92 22 125/60 99 Nasal Cannula 2.0 06/09/16 03:00 94 25 102/62 97 Nasal Cannula 2.0 06/09/16 02:00 91 20 105/58 96 Nasal Cannula 2.0 06/09/16 01:00 90 30 107/64 95 Nasal Cannula 2.0 06/09/16 00:00 88 06/09/16 00:00 88 31 99/54 94 Nasal Cannula 2.0 06/08/16 23:00 98.4 93 20 102/57 95 Nasal Cannula 2.0 06/08/16 22:00 83 29 93/49 95 Nasal Cannula 2.0 1/12/17 21:00 82 94/53 06/08/16 21:00 84 31 89/51 96 Nasal Cannula 2.0 06/08/16 20:00 97.9 80 19 94/46 97 Nasal Cannula 2.0 06/08/16 20:00 77 06/08/16 19:01 76 19 76/48 98 Nasal Cannula 2.0 06/08/16 19:00 98 Nasal Cannula 2.0 28 06/08/16 19:00 Nasal Cannula 2.0 28 06/08/16 18:00 76 19 78/41 98 Nasal Cannula 2.0 06/08/16 17:00 77 20 79/40 98 Nasal Cannula 2.0 Intake and Output 06/08/16 06/09/16 19:00 07:00 Intake Total 1536.8 ml 3323.2 ml Output Total 350 ml 315 ml Balance 1186.8 ml 3008.2 ml Intake IV Total 1476.8 ml 3143.2 ml Other 60 ml 180 ml Output Urine Total 350 ml 315 ml Laboratory Tests 06/09/16 04:05: White Blood Count 15.1H, Red Blood Count 3.67L, Hemoglobin 9.2L, Hematocrit 30.0 #L, Mean Corpuscular Volume 82, Mean Corpuscular Hemoglobin 25.1L, Mean Corpuscular Hemoglobin Concent 30.6L, Red Cell Distribution Width 17.2H, Platelet Count 30#L, Mean Platelet Volume 10.2H, Neutrophils (%) (Auto) , Lymphocytes (%) (Auto) , Monocytes (%) (Auto) , Eosinophils (%) (Auto) , Basophils (%) (Auto) , Differential Total Cells Counted 100, Neutrophils % ( Manual) 86H, Lymphocytes % (Manual) 12L, Monocytes % (Manual) 2, Eosinophils % ( Manual) 0, Basophils % (Manual) 0, Band Neutrophils 0, Nucleated Red Blood Cells 6, Platelet Estimate DecreasedL, Platelet Morphology Normal, Hypochromasia 2+, Anisocytosis 1+, Sodium Level 165*H, Potassium Level 4.3, Chloride Level 130H, Carbon Dioxide Level 13L, Anion Gap 22H, Blood Urea Nitrogen 107H, Creatinine 5.9H, Estimat Glomerular Filtration Rate 9.9, Glucose Level 234H, Calcium Level 8.1L, Magnesium Level 2.4, Total Bilirubin 0.6, Aspartate Amino Transf (AST/SGOT) 1034H, Alanine Aminotransferase (ALT/SGPT) 782H, Alkaline Phosphatase 131H, Troponin I < 0.30, Total Protein 6.6, Albumin 2.7L, Globulin 3.9, Albumin/Globulin Ratio 0.6L 06/09/16 12:35: Prothrombin Time 11.8H, Prothromb Time International Ratio 1.2H, Activated Partial Thromboplast Time 24 Height (Feet): 5 Height (Inches): 11.00 Weight (Pounds): 165 General Appearance: confused EENT: other - dry mouth Neck: normal alignment Cardiovascular: normal rate Respiratory/Chest: lungs clear Abdomen: non tender, soft, no organomegaly Extremities: trace edema Neurologic: disoriented SHASTA REDDY Jun 09, 2016 16:21
--- NOTE | 2016-06-09 16:43 | Diagnostic Imaging Report ---
Indication: roasterman venous access Findings: After the indications, procedure, risks, complications, and alternatives of the procedure were explained, written informed consent was obtained. The right upper extremity was prepped with alcohol. All elements of maximal sterile barrier technique were followed including usage of a cap, mask, sterile gown, sterile gloves, hand hygiene and a large sterile sheet. Sonographic evaluation of the upper extremity was performed demonstrating a patent and compressible basilic vein. Access was obtained under real-time ultrasound guidance and digital image was saved and archived. An .018 wire was introduced. Needle exchanged for a 5 [place] peel-away sheath. Measurements were obtained. A 5 [place] dual-lumen Power PICC line catheter was cut to 37 cm and introduced over the wire. Peel-away sheath and wire were removed.Catheter was secured to the skin using 2-0 Prolene suture. Both ports aspirate and flush easily. Post procedure chest x-ray demonstrates good position of the PICC line catheter within the SVC. Impression: Successful placement of an upper extremity PICC line catheter
[2016-06-09] MEDS: Sodium Bicarbonate 50 ML in D5W 1000ml 1,000 ML IV SCH ×2 (17:19→21:36)
[2016-06-09 17:23] LABS: CALCIUM 7.9 mg/dL (8.6-10.2); CREATININE 5.2 mg/dL (0.7-1.2); GLOMERULAR FILTRATION RATE 11.5 mL/min (>60); POTASSIUM 4.6 mEQ/L (3.4-4.9)
[2016-06-09] MEDS: Sodium Citrate 30ml NG SCH ×2 (18:00→23:46)
--- NOTE | 2016-06-09 18:07 | Consultation ---
DATE OF CONSULTATION: 06/09/2016 ENDOCRINOLOGY CONSULTATION REFERRING PHYSICIAN: Raul Del Cid M.D. REASON FOR CONSULTATION: Diabetic ketoacidosis. HISTORY OF PRESENT ILLNESS: The patient is a 55-year-old male with past medical history of diabetes, who presented to the emergency department on 06/07/2016 from a long term facility with diabetes out of control. On presentation, the patient was found to have diabetic ketoacidosis. He was started on intravenous fluid, antibiotic and IV insulin and admitted to the ICU. Currently, he is in ICU. Latest labs from this morning, still shows open anion gap. The patient is still altered. PAST MEDICAL HISTORY: 1. Diabetes. 2. Hypertension. 3. Seizure disorder. 4. Hypertensive heart disease. PAST SURGICAL HISTORY: History of mediastinotomy. MEDICATIONS: Reviewed and reconcilied. ALLERGIES TO MEDICATION: None. SOCIAL HISTORY: No smoking. No alcohol. No drug abuse. REVIEW OF SYSTEMS: From half-way, review of systems is not obtainable due to alteration in mental status. PHYSICAL EXAMINATION: GENERAL: The patient is confused. VITAL SIGNS: His blood pressure is 116/80, pulse of 87, temperature of 98.9 degrees, and respiratory rate of 26. HEENT: Pupils are equal and reactive to light. NECK: No JVD. LUNGS: Decreased breath sounds. HEART: Regular rate and rhythm. ABDOMEN: Positive bowel sounds. EXTREMITIES: Trace edema. LABORATORY AND DIAGNOSTIC DATA: WBC 15.1, hemoglobin 9, hematocrit 30 and platelets of 30,000. Sodium 155, potassium 4.0, chloride 100, bicarbonate 13, BUN 107, creatinine 5.9 and glucose 234. DIAGNOSES: 1. Diabetic ketoacidosis, the gap is somewhat resolved. 2. Insulin-dependent diabetes. 3. Seizure disorder. 4. Hypernatremia. 5. Thrombocytopenia. PLAN: 1. Continue the insulin drip until the anion gap is closed and I will start the patient on basal bolus insulin regimen. Currently, insulin Levemir 10 units q.12 hours have been ordered too, which I concur. 2. Follow up with the electrolytes and replete accordingly. 3. I will follow the patient closely during hospital stay. Thank you, Dr. Raul Del Cid, for the courtesy of this consultation. Augustus Montague M.D. DR: SHEN JOB#: [id number] CC: [facility]ME
[2016-06-09] MEDS ORDERED: 1/2 NS 1000ml IV ONE ×2 (18:34→18:42)
[2016-06-09] MEDS ORDERED: Tubing IV Secondary IV ONE (18:42)
[2016-06-09] MEDS ORDERED: NS 550ML IV ONE (18:42)
[2016-06-10] VITALS (24 sets, daily range): BP systolic 88–139; BP diastolic 42–100
[2016-06-10] MEDS: Insulin Rate Change 1 Each MISC PRN ×5 (00:18→21:26)
[2016-06-10] MEDS: Sodium Bicarbonate 50 ML in D5W 1000ml 1,000 ML IV SCH ×5 (01:52→18:15)
[2016-06-10] MEDS ORDERED: ALL DRIPS IN NORMAL SALINE MISC PRN (03:30)
--- NOTE | 2016-06-10 04:37 | Progress Note ---
DATE: 06/09/2016 CARDIOLOGY PROGRESS NOTE SUBJECTIVE: The patient remains in the intensive care unit. He is critically ill and with guarded prognosis. The patient is on IV fluids. He is able to avoid pressors. He still is on an insulin drip. OBJECTIVE: VITAL SIGNS: Blood pressure 119/64, pulse 73, respirations 18, and afebrile. Earlier blood pressure down to 90 systolic. LUNGS: Bilateral breath sounds. HEART: Regular rhythm and rate. Normal S1, S2 with a fourth heart sound. ABDOMEN: Soft. EXTREMITIES: Trace dependent edema. Ischemic changes of distal digits - diffusely. LABORATORY AND DIAGNOSTIC DATA: White count 15.1, hemoglobin 9.2, and platelet count is 30,000. Sodium 150, potassium 4.6, chloride 121, bicarbonate 13, BUN 105, and creatinine 5.2. Ammonia 65. CK 3600. Troponin is negative. IMPRESSION: 1. Severe sepsis with shock. 2. Systemic inflammatory response syndrome. 3. Hypovolemic shock with severe dehydration. 4. Hypernatremia. 5. Thrombocytopenia. 6. Acute renal failure 7. Diabetic ketoacidosis. 8. Microvascular disease with distal ischemia of extremities. PLAN: 1. Volume resuscitation. 2. Monitor for signs of bleeding. 3. Discontinue heparin. 4. Empiric antibiotics. 5. Insulin drip. 6. Monitor volume status and cardiorenal parameters. 7. Continue hypotonic fluids. 8. Aspiration precautions. Morales Serrano M.D. DR: PAYAM JOB#: [id number] CC: [facility]
[2016-06-10 05:17] LABS: MEAN CORPUSCULAR HEMOGLOBIN 25.7 PG (27.0-31.0); MEAN CORPUSCULAR HGB CONC 31.9 G/DL (32.0-36.0); MEAN CORPUSCULAR VOLUME 81 FL (80-99); MEAN PLATELET VOLUME 10.9 FL (6.5-10.1); PLATELET COUNT 36 K/UL (150-450); RED BLOOD COUNT 3.08 M/UL (4.70-6.10); RED CELL DISTRIBUTION WIDTH 17.8 % (11.6-14.8); WHITE BLOOD COUNT 11.3 K/UL (4.8-10.8)
[2016-06-10 05:35] LABS: ALBUMIN/GLOBULIN RATIO 0.6 (1.0-2.7); CALCIUM 7.8 mg/dL (8.6-10.2); CREATININE 4.1 mg/dL (0.7-1.2); GLOMERULAR FILTRATION RATE 15.1 mL/min (>60); POTASSIUM 3.1 mEQ/L (3.4-4.9); TOTAL PROTEIN 5.8 g/dL (6.6-8.7)
[2016-06-10] MEDS: Sodium Citrate 30ml NG SCH ×3 (06:00→20:55)
[2016-06-10] MEDS: Docusate 100mg tablet NG SCH ×2 (07:57→18:40)
[2016-06-10] MEDS: Metoprolol 50mg tab ORAL SCH ×2 (07:58→20:55)
[2016-06-10] MEDS: Pantoprazole Inj IVP SCH (08:17)
[2016-06-10] MEDS: Piperacillin/Tazobactam 3.375 GM in NS 110 ML IVPB SCH ×2 (08:17→20:55)
[2016-06-10] MEDS: Levemir Flexpen SUBQ SCH ×2 (08:20→21:26)
--- NOTE | 2016-06-10 08:29 | Diagnostic Imaging Report ---
Indications: Shortness of breath Technique: Portable AP chest Findings: Comparison: 01/26/2010 Cardiac silhouette now normal in size. Pulmonary vasculature remains within normal limits. Lungs and pleura remain clear. Sternal wires, multiple chronic appearing left rib fractures noted. Mild calcification of the aortic arch is unchanged. IMPRESSION: No evidence of acute cardiopulmonary disease Interval open heart surgery Interval left rib fractures, chronic in appearance
--- NOTE | 2016-06-10 08:30 | Cardiology Report ---
APPROVED REPORT EKG Measurement Heart [id number] Sinus tachycardia Possible Left atrial enlargement Left ventricular hypertrophy T wave abnormality, consider inferolateral ischemia Abnormal ECG
--- NOTE | 2016-06-10 09:15 | Diagnostic Imaging Report ---
Indications: Shortness of breath Technique: Portable AP chest Findings: Comparison: 06/07/2016 Nasogastric tube has been placed, tip off the edge of the image, below the diaphragm. PICC has been placed via right upper extremity, tip in region of proximal aspect of superior vena cava. Inspiratory effort remains suboptimal. Heart size, pulmonary vasculature remain within normal limits. Linear and hazy opacity has developed in the left lung base. Right lung, bilateral pleural surfaces remain grossly clear. IMPRESSION: Development of subsegmental atelectasis left lung base. Superimposed focal infiltrate not excludable. Short interval followup recommended. Interval placement of lines and tubes as described, in good positions
--- NOTE | 2016-06-10 09:17 | General Progress Note ---
Assessment/Plan Problem List: (1) DKA (diabetic ketoacidoses) ICD Codes: E13.10 - Other specified diabetes mellitus with ketoacidosis without coma SNOMED: 888306072, 96371096 Qualifiers: Qualified Codes: E13.11 - Other specified diabetes mellitus with ketoacidosis with coma (2) Leukocytosis ICD Codes: D72.829 - Elevated white blood cell count, unspecified SNOMED: 336650508, 480617077 Qualifiers: Qualified Codes: D72.829 - Elevated white blood cell count, unspecified (3) Altered level of consciousness ICD Codes: R40.4 - Transient alteration of awareness SNOMED: 0790847 (4) Acute renal failure ICD Codes: N17.9 - Acute kidney failure, unspecified SNOMED: 00244069 Qualifiers: Qualified Codes: N17.0 - Acute kidney failure with tubular necrosis (5) Hypernatremia ICD Codes: E87.0 - Hyperosmolality and hypernatremia SNOMED: 20506997 (6) Metabolic acidosis ICD Codes: E87.2 - Acidosis SNOMED: 52766096 Assessment/Plan anion gap is still open serum ketone were negative on 06/07 will repeat serum ketones and also check lactic acid level cotninue with IV insulin for now Subjective ROS Limited/Unobtainable: Yes Allergies: Coded Allergies: No Known Allergies (Unverified , 05/30/16) Subjective still in icu confused Objective Last 24 Hour Vital Signs Date Time Temp Pulse Resp B/P Pulse Ox O2 Delivery O2 Flow Rate FiO2 06/10/16 09:00 83 19 117/61 100 Nasal Cannula 2.0 06/10/16 08:00 74 06/10/16 08:00 98.4 74 24 119/55 100 Nasal Cannula 2.0 06/10/16 07:58 75 115/61 06/10/16 07:00 75 24 131/59 100 Nasal Cannula 2.0 06/10/16 06:00 75 24 103/47 100 Nasal Cannula 2.0 06/10/16 05:00 73 27 91/53 100 Nasal Cannula 2.0 06/10/16 04:00 75 06/10/16 04:00 97.9 75 30 92/48 100 Nasal Cannula 2.0 06/10/16 03:00 69 29 91/65 100 Nasal Cannula 2.0 06/10/16 02:00 71 29 90/53 100 Nasal Cannula 2.0 06/10/16 01:00 68 31 88/50 100 Nasal Cannula 2.0 06/10/16 00:00 71 06/10/16 00:00 99.1 74 32 91/42 100 Nasal Cannula 2.0 06/09/16 23:00 67 30 94/53 100 Nasal Cannula 2.0 06/09/16 22:34 98 Nasal Cannula 2.0 28 06/09/16 22:34 Nasal Cannula 2.0 28 06/09/16 22:00 73 22 119/64 100 Nasal Cannula 2.0 06/09/16 21:37 90 120/71 06/09/16 21:00 93 30 120/71 100 Nasal Cannula 2.0 06/09/16 20:03 99.0 92 30 122/56 97 Nasal Cannula 2.0 06/09/16 20:00 92 06/09/16 19:00 88 25 104/57 99 Nasal Cannula 2.0 06/09/16 18:00 89 25 106/60 99 Nasal Cannula 2.0 06/09/16 17:00 85 25 120/75 100 Nasal Cannula 2.0 06/09/16 16:00 89 06/09/16 16:00 98.2 82 26 121/63 100 Nasal Cannula 2.0 06/09/16 15:00 89 28 133/67 94 Nasal Cannula 2.0 06/09/16 14:00 91 28 139/60 100 Nasal Cannula 2.0 06/09/16 13:00 90 24 123/69 100 Nasal Cannula 2.0 06/09/16 12:00 98.5 91 24 105/71 100 Nasal Cannula 2.0 06/09/16 12:00 91 06/09/16 11:00 87 25 111/63 100 Nasal Cannula 2.0 06/09/16 10:00 82 24 99/60 94 Nasal Cannula 2.0 Intake and Output 06/09/16 06/10/16 19:00 07:00 Intake Total 3020.6 ml 3100.0 ml Output Total 1250 ml 1540 ml Balance 1770.6 ml 1560.0 ml Intake IV Total 2510.6 ml 2770.0 ml Other 510 ml 330 ml Output Urine Total 1250 ml 1540 ml # Bowel Movements 2 Laboratory Tests 06/09/16 12:35: Prothrombin Time 11.8H, Prothromb Time International Ratio 1.2H, Activated Partial Thromboplast Time 24 06/09/16 16:45: Sodium Level 158H, Potassium Level 4.6, Chloride Level 121H, Carbon Dioxide Level 13L, Anion Gap 24H, Blood Urea Nitrogen 105H, Creatinine 5.2H, Estimat Glomerular Filtration Rate 11.5, Glucose Level 255H, Calcium Level 7.9L, Ammonia 65H, Total Creatine Kinase 3649H 06/10/16 05:00: Sodium Level 157H, Potassium Level 3.1L, Chloride Level 122H, Carbon Dioxide Level 19L, Anion Gap 16H, Blood Urea Nitrogen 86H, Creatinine 4.1H, Estimat Glomerular Filtration Rate 15.1, Glucose Level 255H, Calcium Level 7.8L, White Blood Count 11.3H, Red Blood Count 3.08L, Hemoglobin 7.9L, Hematocrit 24.8L, Mean Corpuscular Volume 81, Mean Corpuscular Hemoglobin 25.7L, Mean Corpuscular Hemoglobin Concent 31.9L, Red Cell Distribution Width 17.8H, Platelet Count 36L , Mean Platelet Volume 10.9H, Neutrophils (%) (Auto) , Lymphocytes (%) (Auto) , Monocytes (%) (Auto) , Eosinophils (%) (Auto) , Basophils (%) (Auto) , Neutrophils % (Manual) [Pending], Lymphocytes % (Manual) [Pending], Platelet Estimate [Pending], Platelet Morphology [Pending], Total Bilirubin 0.7, Aspartate Amino Transf (AST/SGOT) 303H, Alanine Aminotransferase (ALT/SGPT) 519H , Alkaline Phosphatase 116, Total Protein 5.8L, Albumin 2.3L, Globulin 3.5, Albumin/Globulin Ratio 0.6L Height (Feet): 5 Height (Inches): 11.00 Weight (Pounds): 165 General Appearance: moderate distress Neck: normal alignment Cardiovascular: normal peripheral pulses Respiratory/Chest: lungs clear Abdomen: normal bowel sounds Objective Item Value Date Time Bedside Blood Glucose 212 mg/dl H 06/10/16 0820 Bedside Blood Glucose 172 mg/dl H 06/10/16 0600 Bedside Blood Glucose 244 mg/dl H 06/10/16 0213 Bedside Blood Glucose 249 mg/dl H 06/09/16 2253 Bedside Blood Glucose 120 mg/dl 06/09/16 1804 Bedside Blood Glucose 129 mg/dl H 06/09/16 1400 Current Medications Medications (Trade) Dose Ordered Sig/Mateo Route PRN Reason Start Time Stop Time Status Last Admin Dose Admin Dextrose (Dextrose 50%) PRN PRN IV HYPOGLYCEMIA 06/10/16 03:30 07/10/16 03:29 Docusate Sodium (Colace) 100 mg BID NG 06/08/16 11:00 07/08/16 10:59 06/09/16 18:00 Insulin Detemir (Levemir) 10 units Q12HR SUBQ 06/07/16 21:00 07/07/16 20:59 06/10/16 08:20 Insulin Human Regular (NovoLIN R) 5 units PRN PRN IV BS 200-299 06/10/16 03:30 07/10/16 03:29 06/10/16 05:42 Insulin Human Regular (NovoLIN R) 10 units PRN PRN IV BS=>300 06/10/16 03:30 07/10/16 03:29 Insulin Human Regular/Sodium Chloride (NovoLIN R/ Sodium Chloride 100ml bag) 101 ml @ 0 mls/hr Q24H IV 06/10/16 03:30 07/10/16 03:29 06/10/16 03:30 Metoprolol Tartrate 50 mg 50 mg EVERY 12 HOURS ORAL 06/10/16 09:00 07/10/16 08:59 Miscellaneous Medication (Insulin Rate Change) 1 ea PRN PRN MISC Per rx protocol 06/10/16 03:30 07/10/16 03:29 06/10/16 07:56 Pantoprazole 40 mg 40 mg DAILY IVP 06/09/16 09:00 07/09/16 08:59 06/10/16 08:17 Piperacillin Sod/ Tazobactam Sod/ Sodium Chloride (Zosyn/Sodium Chloride 100ml bag) 110 ml @ 25 mls/hr Q12HR IVPB 06/08/16 21:00 06/15/16 20:59 06/10/16 08:17 Rivaroxaban (Xarelto) 15 mg Q24H ORAL 06/10/16 18:00 07/10/16 17:59 Sodium Bicarbonate/ Dextrose (Sodium Bicarbonate/D5W 1000ml) 1,050 ml @ 250 mls/hr Q4H12M IV 06/09/16 17:00 07/09/16 16:59 06/10/16 05:44 Sodium Citrate 30 ml 30 ml EVERY 6 HOURS NG 06/09/16 18:00 07/09/16 17:59 06/09/16 23:46 JOELLEN LEARY Jun 10, 2016 09:16
[2016-06-10 10:47] LABS: REFLEX LACTIC ACID YES OR NO YES
[2016-06-10 10:51] LABS: MAGNESIUM 2.3 mg/dL (1.7-2.5)
[2016-06-10 11:06] LABS: BAND NEUTROPHILS % (MANUAL) 0 % (0-8); BASOPHILS % (MANUAL) 0 % (0-2); EOSINOPHILS % (MANUAL) 1 % (0-3); HYPOCHROMASIA 3+; LYMPHOCYTES % (MANUAL) 7 % (20-45); NEUTROPHILS % (MANUAL) 90 % (45-75); NUCLEATED RED BLOOD CELLS 6 /100 WBC; PLATELET ESTIMATE DECREASED; TOTAL CELLS COUNTED 100
[2016-06-10 11:07] LABS: ANISOCYTOSIS 2+; PLATELET MORPHOLOGY NORMAL
--- NOTE | 2016-06-10 11:08 | General Progress Note ---
Assessment/Plan Problem List: (1) Acute renal failure ICD Codes: N17.9 - Acute kidney failure, unspecified SNOMED: 44266708 Qualifiers: Qualified Codes: N17.0 - Acute kidney failure with tubular necrosis (2) Encephalopathy ICD Codes: G93.40 - Encephalopathy, unspecified SNOMED: 76392462, 189425099 (3) DKA (diabetic ketoacidoses) ICD Codes: E13.10 - Other specified diabetes mellitus with ketoacidosis without coma SNOMED: 767147119, 32154492 Qualifiers: Qualified Codes: E13.11 - Other specified diabetes mellitus with ketoacidosis with coma (4) Leukocytosis ICD Codes: D72.829 - Elevated white blood cell count, unspecified SNOMED: 787359591, 797773767 Qualifiers: Qualified Codes: D72.829 - Elevated white blood cell count, unspecified (5) Altered level of consciousness ICD Codes: R40.4 - Transient alteration of awareness SNOMED: 7039755 Status: stable, not improved, unchanged Assessment/Plan cont aggressive IVF insulin drip IV abx off heparin drip due to low plts- on xarelto check arterial duplex upper UE check echo vascular eval remain critical and guarded Subjective ROS Limited/Unobtainable: Yes Constitutional: Reports: no symptoms HEENT: Reports: no symptoms Cardiovascular: Reports: edema Respiratory: Reports: cough, shortness of breath Gastrointestinal/Abdominal: Reports: no symptoms Genitourinary: Reports: no symptoms Neurologic/Psychiatric: Reports: pre-existing deficit Endocrine: Reports: no symptoms Hematologic/Lymphatic: Reports: no symptoms Allergies: Coded Allergies: No Known Allergies (Unverified , 05/30/16) All Systems: reviewed and negative except above Subjective remains on insulin drip. o2 requirements. confused. labs reviewed. uop improving. right hand finger ischemic/blue Objective Last 24 Hour Vital Signs Date Time Temp Pulse Resp B/P Pulse Ox O2 Delivery O2 Flow Rate FiO2 06/10/16 10:00 74 23 107/60 100 Nasal Cannula 2.0 06/10/16 09:00 83 19 117/61 100 Nasal Cannula 2.0 06/10/16 08:00 74 06/10/16 08:00 98.4 74 24 119/55 100 Nasal Cannula 2.0 06/10/16 07:58 75 115/61 06/10/16 07:00 75 24 131/59 100 Nasal Cannula 2.0 06/10/16 06:00 75 24 103/47 100 Nasal Cannula 2.0 06/10/16 05:00 73 27 91/53 100 Nasal Cannula 2.0 06/10/16 04:00 75 06/10/16 04:00 97.9 75 30 92/48 100 Nasal Cannula 2.0 06/10/16 03:00 69 29 91/65 100 Nasal Cannula 2.0 06/10/16 02:00 71 29 90/53 100 Nasal Cannula 2.0 06/10/16 01:00 68 31 88/50 100 Nasal Cannula 2.0 06/10/16 00:00 71 06/10/16 00:00 99.1 74 32 91/42 100 Nasal Cannula 2.0 06/09/16 23:00 67 30 94/53 100 Nasal Cannula 2.0 06/09/16 22:34 98 Nasal Cannula 2.0 28 06/09/16 22:34 Nasal Cannula 2.0 28 06/09/16 22:00 73 22 119/64 100 Nasal Cannula 2.0 06/09/16 21:37 90 120/71 06/09/16 21:00 93 30 120/71 100 Nasal Cannula 2.0 06/09/16 20:03 99.0 92 30 122/56 97 Nasal Cannula 2.0 06/09/16 20:00 92 06/09/16 19:00 88 25 104/57 99 Nasal Cannula 2.0 06/09/16 18:00 89 25 106/60 99 Nasal Cannula 2.0 06/09/16 17:00 85 25 120/75 100 Nasal Cannula 2.0 06/09/16 16:00 89 06/09/16 16:00 98.2 82 26 121/63 100 Nasal Cannula 2.0 06/09/16 15:00 89 28 133/67 94 Nasal Cannula 2.0 06/09/16 14:00 91 28 139/60 100 Nasal Cannula 2.0 06/09/16 13:00 90 24 123/69 100 Nasal Cannula 2.0 06/09/16 12:00 98.5 91 24 105/71 100 Nasal Cannula 2.0 06/09/16 12:00 91 Intake and Output 06/09/16 06/10/16 19:00 07:00 Intake Total 3020.6 ml 3100.0 ml Output Total 1250 ml 1540 ml Balance 1770.6 ml 1560.0 ml Intake IV Total 2510.6 ml 2770.0 ml Other 510 ml 330 ml Output Urine Total 1250 ml 1540 ml # Bowel Movements 2 Laboratory Tests 06/09/16 12:35: Prothrombin Time 11.8H, Prothromb Time International Ratio 1.2H, Activated Partial Thromboplast Time 24 06/09/16 16:45: Sodium Level 158H, Potassium Level 4.6, Chloride Level 121H, Carbon Dioxide Level 13L, Anion Gap 24H, Blood Urea Nitrogen 105H, Creatinine 5.2H, Estimat Glomerular Filtration Rate 11.5, Glucose Level 255H, Calcium Level 7.9L, Ammonia 65H, Total Creatine Kinase 3649H 06/10/16 03:23: Phosphorus Level 4.0, Magnesium Level 2.3 06/10/16 05:00: Sodium Level 157H, Potassium Level 3.1L, Chloride Level 122H, Carbon Dioxide Level 19L, Anion Gap 16H, Blood Urea Nitrogen 86H, Creatinine 4.1H, Estimat Glomerular Filtration Rate 15.1, Glucose Level 255H, Calcium Level 7.8L, White Blood Count 11.3H, Red Blood Count 3.08L, Hemoglobin 7.9L, Hematocrit 24.8L, Mean Corpuscular Volume 81, Mean Corpuscular Hemoglobin 25.7L, Mean Corpuscular Hemoglobin Concent 31.9L, Red Cell Distribution Width 17.8H, Platelet Count 36L , Mean Platelet Volume 10.9H, Neutrophils (%) (Auto) , Lymphocytes (%) (Auto) , Monocytes (%) (Auto) , Eosinophils (%) (Auto) , Basophils (%) (Auto) , Neutrophils % (Manual) [Pending], Lymphocytes % (Manual) [Pending], Platelet Estimate [Pending], Platelet Morphology [Pending], Total Bilirubin 0.7, Aspartate Amino Transf (AST/SGOT) 303H, Alanine Aminotransferase (ALT/SGPT) 519H , Alkaline Phosphatase 116, Total Protein 5.8L, Albumin 2.3L, Globulin 3.5, Albumin/Globulin Ratio 0.6L 06/10/16 09:45: Lactic Acid Level 2.00, Beta-Hydroxybutyric Acid [Pending] Height (Feet): 5 Height (Inches): 11.00 Weight (Pounds): 165 General Appearance: WD/WN, alert, confused Neck: supple Cardiovascular: regular rhythm Respiratory/Chest: lungs clear Abdomen: normal bowel sounds, non tender, soft, no organomegaly, no mass Edema: mild edema Neurologic: alert Skin: cyanotic - right hand fingers DARYN JEREZ Jun 10, 2016 11:08
--- NOTE | 2016-06-10 11:24 | Diagnostic Imaging Report ---
Indications: Elevated hepatic and renal function tests Technique: Transabdominal real-time grayscale and duplex Doppler imaging of the upper abdomen and retroperitoneum was performed. Findings: Comparison: None. Liver 20 cm in length; normal surface contour, parenchymal echogenicity. No focal lesions. Gallbladder unremarkable. No intraluminal stones or sludge. No mural thickening or adjacent fluid collections. Sonographic Downs sign negative.. Bile ducts normal caliber. Common bile duct 5 mm. Pancreas head and body unremarkable; tail obscured. Spleen unremarkable. Right kidney unremarkable. Left kidney unremarkable. Abdominal aorta, intrahepatic portion of inferior vena cava patent, normal caliber. Duplex Doppler imaging demonstrates antegrade flow in splenic, portal, hepatic veins. No ascites. IMPRESSION: Hepatomegaly Pancreatic tail obscured Remainder of exam unremarkable.
--- NOTE | 2016-06-10 11:55 | Infectious Diseases Prog Note ---
Assessment/Plan Assessment/Plan antibiotics : zosyn A 1. leucocytosis improving 2. renal failure 3. nasal MRSA colonization 4. increased LFT 5. thrombocytopenia 6. DKA P 1. continue zosyn 2. will follow up cultures 3. blood cultures 4. urine cultures Subjective ROS Limited/Unobtainable: Yes Allergies: Coded Allergies: No Known Allergies (Unverified , 05/30/16) Objective Vital Signs Last 24 Hour Vital Signs Date Time Temp Pulse Resp B/P Pulse Ox O2 Delivery O2 Flow Rate FiO2 06/10/16 11:00 77 23 127/82 100 Nasal Cannula 2.0 06/10/16 10:00 74 23 107/60 100 Nasal Cannula 2.0 06/10/16 09:00 83 19 117/61 100 Nasal Cannula 2.0 06/10/16 08:00 74 06/10/16 08:00 98.4 74 24 119/55 100 Nasal Cannula 2.0 06/10/16 07:58 75 115/61 06/10/16 07:00 75 24 131/59 100 Nasal Cannula 2.0 06/10/16 06:00 75 24 103/47 100 Nasal Cannula 2.0 06/10/16 05:00 73 27 91/53 100 Nasal Cannula 2.0 06/10/16 04:00 75 06/10/16 04:00 97.9 75 30 92/48 100 Nasal Cannula 2.0 06/10/16 03:00 69 29 91/65 100 Nasal Cannula 2.0 06/10/16 02:00 71 29 90/53 100 Nasal Cannula 2.0 06/10/16 01:00 68 31 88/50 100 Nasal Cannula 2.0 06/10/16 00:00 71 06/10/16 00:00 99.1 74 32 91/42 100 Nasal Cannula 2.0 06/09/16 23:00 67 30 94/53 100 Nasal Cannula 2.0 06/09/16 22:34 98 Nasal Cannula 2.0 28 06/09/16 22:34 Nasal Cannula 2.0 28 06/09/16 22:00 73 22 119/64 100 Nasal Cannula 2.0 06/09/16 21:37 90 120/71 06/09/16 21:00 93 30 120/71 100 Nasal Cannula 2.0 06/09/16 20:03 99.0 92 30 122/56 97 Nasal Cannula 2.0 1/13/17 20:00 92 06/09/16 19:00 88 25 104/57 99 Nasal Cannula 2.0 06/09/16 18:00 89 25 106/60 99 Nasal Cannula 2.0 06/09/16 17:00 85 25 120/75 100 Nasal Cannula 2.0 06/09/16 16:00 89 06/09/16 16:00 98.2 82 26 121/63 100 Nasal Cannula 2.0 06/09/16 15:00 89 28 133/67 94 Nasal Cannula 2.0 06/09/16 14:00 91 28 139/60 100 Nasal Cannula 2.0 06/09/16 13:00 90 24 123/69 100 Nasal Cannula 2.0 06/09/16 12:00 98.5 91 24 105/71 100 Nasal Cannula 2.0 06/09/16 12:00 91 Height (Feet): 5 Height (Inches): 11.00 Weight (Pounds): 165 Respiratory/Chest: lungs clear Cardiovascular: normal rate, regular rhythm, no gallop/murmur Abdomen: soft, non tender Extremities: other - + edema Microbiology Date/Time Source Procedure Growth Status 06/07/16 20:45 Nasal Nares MRSA Culture - Final Staphylococcus Aureus - Mrsa Complete 06/07/16 20:45 Rectum VRE Culture - Final Enterococcus Faecalis - Vre Complete Laboratory Tests Test 06/09/16 12:35 06/09/16 16:45 06/10/16 03:23 06/10/16 05:00 Prothrombin Time 11.8 SEC (9.30-11.50) H Prothromb Time International Ratio 1.2 (0.9-1.1) H Activated Partial Thromboplast Time 24 SEC (23-33) Sodium Level 158 mEQ/L (135-145) H 157 mEQ/L (135-145) H Potassium Level 4.6 mEQ/L (3.4-4.9) 3.1 mEQ/L (3.4-4.9) L Chloride Level 121 mEQ/L (98-107) H 122 mEQ/L (98-107) H Carbon Dioxide Level 13 mEQ/L (20-30) L 19 mEQ/L (20-30) L Anion Gap 24 (5-15) H 16 (5-15) H Blood Urea Nitrogen 105 mg/dL (7-23) H 86 mg/dL (7-23) H Creatinine 5.2 mg/dL (0.7-1.2) H 4.1 mg/dL (0.7-1.2) H Estimat Glomerular Filtration Rate 11.5 mL/min (>60) 15.1 mL/min (>60) Glucose Level 255 mg/dL (74-106) H 255 mg/dL (74-106) H Calcium Level 7.9 mg/dL (8.6-10.2) L 7.8 mg/dL (8.6-10.2) L Ammonia 65 umol/L (16-60) H Total Creatine Kinase 3649 U/L (38-174) H Phosphorus Level 4.0 mg/dL (2.5-4.8) Magnesium Level 2.3 mg/dL (1.7-2.5) White Blood Count 11.3 K/UL (4.8-10.8) H Red Blood Count 3.08 M/UL (4.70-6.10) L Hemoglobin 7.9 G/DL (14.2-18.0) L Hematocrit 24.8 % (42.0-52.0) L Mean Corpuscular Volume 81 FL (80-99) Mean Corpuscular Hemoglobin 25.7 PG (27.0-31.0) L Mean Corpuscular Hemoglobin Concent 31.9 G/DL (32.0-36.0) L Red Cell Distribution Width 17.8 % (11.6-14.8) H Platelet Count 36 K/UL (150-450) L Mean Platelet Volume 10.9 FL (6.5-10.1) H Neutrophils (%) (Auto) % (45.0-75.0) Lymphocytes (%) (Auto) % (20.0-45.0) Monocytes (%) (Auto) % (1.0-10.0) Eosinophils (%) (Auto) % (0.0-3.0) Basophils (%) (Auto) % (0.0-2.0) Differential Total Cells Counted 100 Neutrophils % (Manual) 90 % (45-75) H Lymphocytes % (Manual) 7 % (20-45) L Monocytes % (Manual) 2 % (1-10) Eosinophils % (Manual) 1 % (0-3) Basophils % (Manual) 0 % (0-2) Band Neutrophils 0 % (0-8) Nucleated Red Blood Cells 6 /100 WBC Platelet Estimate Decreased L Platelet Morphology Normal Hypochromasia 3+ Anisocytosis 2+ Total Bilirubin 0.7 mg/dL (0.0-1.2) Aspartate Amino Transf (AST/SGOT) 303 U/L (5-40) H Alanine Aminotransferase (ALT/SGPT) 519 U/L (3-41) H Alkaline Phosphatase 116 U/L (40-129) Total Protein 5.8 g/dL (6.6-8.7) L Albumin 2.3 g/dL (3.5-5.2) L Globulin 3.5 g/dL Albumin/Globulin Ratio 0.6 (1.0-2.7) L Test 06/10/16 09:45 Lactic Acid Level 2.00 mmol/L (0.66-2.22) Beta-Hydroxybutyric Acid Pending COLTON GONZALEZ Jun 10, 2016 11:55
--- NOTE | 2016-06-10 14:38 | Nephrology Progress Note ---
Assessment/Plan Problem List: (1) Hypovolemic shock (2) Metabolic acidosis (3) Hypernatremia (4) Altered level of consciousness (5) Acute renal failure (6) Encephalopathy (7) Ischemia of digits of hand (8) Ischemia of extremity (9) Rhabdomyolysis Plan creatinine 1.4 04/2016 continue hydration, +bicarb,serial lytes, reduce iv rate , grave pognosis Subjective ROS Limited/Unobtainable: Yes Objective Objective Last 24 Hour Vital Signs Date Time Temp Pulse Resp B/P Pulse Ox O2 Delivery O2 Flow Rate FiO2 06/10/16 14:00 89 24 129/74 100 Nasal Cannula 2.0 06/10/16 13:00 85 24 125/64 100 Nasal Cannula 2.0 06/10/16 12:00 98.5 76 23 129/60 100 Nasal Cannula 2.0 06/10/16 12:00 75 06/10/16 11:00 77 23 127/82 100 Nasal Cannula 2.0 06/10/16 10:00 74 23 107/60 100 Nasal Cannula 2.0 06/10/16 09:00 83 19 117/61 100 Nasal Cannula 2.0 06/10/16 08:00 74 06/10/16 08:00 98.4 74 24 119/55 100 Nasal Cannula 2.0 06/10/16 07:58 75 115/61 06/10/16 07:00 75 24 131/59 100 Nasal Cannula 2.0 06/10/16 06:50 Nasal Cannula 2.0 06/10/16 06:49 100 Nasal Cannula 2.0 06/10/16 06:00 75 24 103/47 100 Nasal Cannula 2.0 06/10/16 05:00 73 27 91/53 100 Nasal Cannula 2.0 06/10/16 04:00 75 06/10/16 04:00 97.9 75 30 92/48 100 Nasal Cannula 2.0 06/10/16 03:00 69 29 91/65 100 Nasal Cannula 2.0 06/10/16 02:00 71 29 90/53 100 Nasal Cannula 2.0 06/10/16 01:00 68 31 88/50 100 Nasal Cannula 2.0 06/10/16 00:00 71 06/10/16 00:00 99.1 74 32 91/42 100 Nasal Cannula 2.0 06/09/16 23:00 67 30 94/53 100 Nasal Cannula 2.0 06/09/16 22:34 98 Nasal Cannula 2.0 28 06/09/16 22:34 Nasal Cannula 2.0 28 06/09/16 22:00 73 22 119/64 100 Nasal Cannula 2.0 06/09/16 21:37 90 120/71 06/09/16 21:00 93 30 120/71 100 Nasal Cannula 2.0 06/09/16 20:03 99.0 92 30 122/56 97 Nasal Cannula 2.0 06/09/16 20:00 92 06/09/16 19:00 88 25 104/57 99 Nasal Cannula 2.0 06/09/16 18:00 89 25 106/60 99 Nasal Cannula 2.0 06/09/16 17:00 85 25 120/75 100 Nasal Cannula 2.0 06/09/16 16:00 89 06/09/16 16:00 98.2 82 26 121/63 100 Nasal Cannula 2.0 06/09/16 15:00 89 28 133/67 94 Nasal Cannula 2.0 Intake and Output 06/09/16 06/10/16 19:00 07:00 Intake Total 3020.6 ml 3100.0 ml Output Total 1250 ml 1540 ml Balance 1770.6 ml 1560.0 ml Intake IV Total 2510.6 ml 2770.0 ml Other 510 ml 330 ml Output Urine Total 1250 ml 1540 ml # Bowel Movements 2 Laboratory Tests 06/09/16 16:45: Sodium Level 158H, Potassium Level 4.6, Chloride Level 121H, Carbon Dioxide Level 13L, Anion Gap 24H, Blood Urea Nitrogen 105H, Creatinine 5.2H, Estimat Glomerular Filtration Rate 11.5, Glucose Level 255H, Calcium Level 7.9L, Ammonia 65H, Total Creatine Kinase 3649H 06/10/16 03:23: Phosphorus Level 4.0, Magnesium Level 2.3 06/10/16 05:00: Sodium Level 157H, Potassium Level 3.1L, Chloride Level 122H, Carbon Dioxide Level 19L, Anion Gap 16H, Blood Urea Nitrogen 86H, Creatinine 4.1H, Estimat Glomerular Filtration Rate 15.1, Glucose Level 255H, Calcium Level 7.8L, White Blood Count 11.3H, Red Blood Count 3.08L, Hemoglobin 7.9L, Hematocrit 24.8L, Mean Corpuscular Volume 81, Mean Corpuscular Hemoglobin 25.7L, Mean Corpuscular Hemoglobin Concent 31.9L, Red Cell Distribution Width 17.8H, Platelet Count 36L , Mean Platelet Volume 10.9H, Neutrophils (%) (Auto) , Lymphocytes (%) (Auto) , Monocytes (%) (Auto) , Eosinophils (%) (Auto) , Basophils (%) (Auto) , Differential Total Cells Counted 100, Neutrophils % (Manual) 90H, Lymphocytes % (Manual) 7L, Monocytes % (Manual) 2, Eosinophils % (Manual) 1, Basophils % ( Manual) 0, Band Neutrophils 0, Nucleated Red Blood Cells 6, Platelet Estimate DecreasedL, Platelet Morphology Normal, Hypochromasia 3+, Anisocytosis 2+, Total Bilirubin 0.7, Aspartate Amino Transf (AST/SGOT) 303H, Alanine Aminotransferase (ALT/SGPT) 519H, Alkaline Phosphatase 116, Total Protein 5.8L, Albumin 2.3L, Globulin 3.5, Albumin/Globulin Ratio 0.6L 06/10/16 09:45: Lactic Acid Level 2.00, Beta-Hydroxybutyric Acid [Pending] Height (Feet): 5 Height (Inches): 11.00 Weight (Pounds): 165 General Appearance: confused EENT: normal ENT inspection Neck: normal alignment, supple Cardiovascular: normal rate Respiratory/Chest: lungs clear, normal breath sounds Abdomen: non tender Extremities: moderate edema, other - ischemia fingers and toes Neurologic: disoriented SHASTA REDDY Jun 10, 2016 14:38
[2016-06-10 16:50] LABS: PATH BLOOD SMEAR/OMC SENT TO PATHOLOGIST
[2016-06-10 17:00] LABS: CRP QUANT 14.3 mg/dL (< 0.5)
[2016-06-10 17:06] LABS: INR 1.1 (0.9-1.1); PROTHROMBIN TIME 11.3 SEC (9.30-11.50)
--- NOTE | 2016-06-10 17:24 | General Progress Note ---
Progress Note Progress Note Consult dictated # [id number] NINA DOMINGO Jun 10, 2016 17:24
[2016-06-10 17:36] LABS: RETICULOCYTE COUNT 0.7 % (0.0-2.0)
[2016-06-10] MEDS ORDERED: Xarelto 10mg tab ORAL SCH (18:00)
[2016-06-11] VITALS (24 sets, daily range): BP systolic 102–126; BP diastolic 50–84
[2016-06-11] MEDS ORDERED: Sodium Bicarbonate 8.4% 50ml Carp ONE (00:13)
[2016-06-11] MEDS: Sodium Citrate 30ml NG SCH ×4 (00:15→17:50)
[2016-06-11] MEDS: Sodium Bicarbonate 50 ML in D5W 1000ml 1,000 ML IV SCH ×3 (00:15→11:00)
[2016-06-11] MEDS: Piperacillin/Tazobactam 2.25 GM in D5W 55 ML IV SCH ×3 (00:17→12:00)
[2016-06-11] MEDS: Insulin Rate Change 1 Each MISC PRN ×4 (02:12→23:11)
[2016-06-11 07:07] LABS: CALCIUM 8.5 mg/dL (8.6-10.2); CREATININE 2.5 mg/dL (0.7-1.2); GLOMERULAR FILTRATION RATE 26.7 mL/min (>60); POTASSIUM 3.1 mEQ/L (3.4-4.9)
--- NOTE | 2016-06-11 08:13 | Infectious Diseases Prog Note ---
Assessment/Plan Assessment/Plan A: Sepsis, SIRS improving Toes & finger cyanosis MRSA & VRE colonization Anemia Thrombocytopenia Acute renal failure P 1. continue Zosyn 2. will follow up cultures Subjective ROS Limited/Unobtainable: Yes Constitutional: Reports: no symptoms Respiratory: Reports: no symptoms Gastrointestinal/Abdominal: Reports: no symptoms Allergies: Coded Allergies: No Known Allergies (Unverified , 05/30/16) Objective Vital Signs Last 24 Hour Vital Signs Date Time Temp Pulse Resp B/P Pulse Ox O2 Delivery O2 Flow Rate FiO2 06/11/16 06:00 91 26 116/54 97 Nasal Cannula 2.0 06/11/16 05:00 99.9 94 24 118/59 97 Nasal Cannula 2.0 06/11/16 04:00 90 06/11/16 04:00 91 31 118/58 97 Nasal Cannula 2.0 06/11/16 03:00 90 31 126/59 94 Nasal Cannula 2.0 06/11/16 02:00 88 30 122/58 97 Nasal Cannula 2.0 06/11/16 01:00 88 21 110/58 97 Nasal Cannula 2.0 06/11/16 00:00 99.1 87 21 109/69 100 Nasal Cannula 2.0 06/11/16 00:00 87 06/10/16 23:00 89 25 122/78 96 Nasal Cannula 2.0 06/10/16 22:00 93 25 127/68 96 Nasal Cannula 2.0 06/10/16 21:00 90 25 123/61 96 Nasal Cannula 2.0 06/10/16 20:55 91 124/65 06/10/16 20:00 87 27 127/65 95 Nasal Cannula 2.0 06/10/16 20:00 87 06/10/16 19:00 84 30 139/63 96 Nasal Cannula 2.0 06/10/16 18:50 Nasal Cannula 2.0 28 06/10/16 18:50 99 Nasal Cannula 2.0 28 06/10/16 18:00 80 23 128/65 100 Nasal Cannula 2.0 06/10/16 17:00 91 24 133/100 100 Nasal Cannula 2.0 06/10/16 16:00 98.2 83 24 122/61 100 Nasal Cannula 2.0 06/10/16 16:00 83 06/10/16 15:00 91 24 122/66 100 Nasal Cannula 2.0 06/10/16 14:00 89 24 129/74 100 Nasal Cannula 2.0 06/10/16 13:00 85 24 125/64 100 Nasal Cannula 2.0 06/10/16 12:00 98.5 76 23 129/60 100 Nasal Cannula 2.0 06/10/16 12:00 75 06/10/16 11:00 77 23 127/82 100 Nasal Cannula 2.0 06/10/16 10:00 74 23 107/60 100 Nasal Cannula 2.0 06/10/16 09:00 83 19 117/61 100 Nasal Cannula 2.0 Height (Feet): 5 Height (Inches): 11.00 Weight (Pounds): 165 General Appearance: no acute distress HEENT: mucous membranes moist Respiratory/Chest: lungs clear Cardiovascular: normal rate Abdomen: soft, non tender, other - NG tube Extremities: no edema, other - cyanosis of toes & R hand figers Neurologic/Psychiatric: alert, responsive Laboratory Tests Test 06/10/16 09:45 06/10/16 16:10 06/11/16 03:55 Lactic Acid Level 2.00 mmol/L (0.66-2.22) Beta-Hydroxybutyric Acid Pending Erythrocyte Sedimentation Rate 93 MM/HR (0-20) H Reticulocyte Count 0.7 % (0.0-2.0) Haptoglobin 209 mg/dL (30-200) H Prothrombin Time 11.3 SEC (9.30-11.50) Prothromb Time International Ratio 1.1 (0.9-1.1) Iron Level 24 ug/dL (59-158) L Total Iron Binding Capacity 163 ug/dL (250-400) L Percent Iron Saturation 15 % (15-50) Unsaturated Iron Binding 139 ug/dL (112-346) Ferritin 1416 ng/mL (10-230) H Lactate Dehydrogenase 853 U/L (135-230) H C-Reactive Protein, Quantitative 14.3 mg/dL (< 0.5) H Vitamin B12 Level 1667 pg/mL (211-946) H Folate Pending Sodium Level 158 mEQ/L (135-145) H Potassium Level 3.1 mEQ/L (3.4-4.9) L Chloride Level 113 mEQ/L (98-107) H Carbon Dioxide Level 21 mEQ/L (20-30) Anion Gap 24 (5-15) H Blood Urea Nitrogen 57 mg/dL (7-23) #H Creatinine 2.5 mg/dL (0.7-1.2) H Estimat Glomerular Filtration Rate 26.7 mL/min (>60) Glucose Level 198 mg/dL (74-106) H Calcium Level 8.5 mg/dL (8.6-10.2) L Total Creatine Kinase 4593 U/L (38-174) H Current Medications Medications (Trade) Dose Ordered Sig/Mateo Route PRN Reason Start Time Stop Time Status Last Admin Dose Admin Dextrose (Dextrose 50%) PRN PRN IV HYPOGLYCEMIA 06/11/16 00:30 07/11/16 00:29 Docusate Sodium (Colace) 100 mg BID NG 06/08/16 11:00 07/08/16 10:59 06/10/16 18:40 Insulin Detemir (Levemir) 10 units Q12HR SUBQ 06/07/16 21:00 07/07/16 20:59 06/10/16 21:26 Insulin Human Regular (NovoLIN R) 5 units PRN PRN IV BS 200-299 06/11/16 00:30 07/11/16 00:29 06/11/16 04:17 Insulin Human Regular (NovoLIN R) 10 units PRN PRN IV BS=>300 06/11/16 00:30 07/11/16 00:29 Insulin Human Regular/Sodium Chloride (NovoLIN R/ Sodium Chloride 100ml bag) 101 ml @ 0 mls/hr Q24H IV 06/11/16 02:37 07/11/16 00:59 06/11/16 02:44 Metoprolol Tartrate 50 mg 50 mg EVERY 12 HOURS ORAL 06/10/16 09:00 07/10/16 08:59 06/10/16 20:55 Miscellaneous Medication 1 ea 1 ea PRN PRN MISC Per rx protocol 06/11/16 00:30 07/11/16 00:29 06/11/16 04:22 Pantoprazole (Protonix) 40 mg DAILY IVP 06/09/16 09:00 07/09/16 08:59 06/10/16 08:17 Piperacillin Sod/ Tazobactam Sod/ Dextrose (Zosyn/D5W 50ml) 55 ml @ 110 mls/hr Q6HR IV 06/11/16 00:00 06/18/16 00:00 06/11/16 06:28 Potassium Chloride (KCl 10% 40mEq Oral solution) 30 meq ONCE ONCE NG 06/11/16 07:45 06/11/16 07:46 UNV Sodium Bicarbonate 50 ml/ Dextrose 1,050 ml @ 175 mls/hr Q6H IV 06/10/16 17:00 07/10/16 16:59 06/11/16 06:26 Sodium Citrate (Bicitra) 30 ml EVERY 6 HOURS NG 06/09/16 18:00 07/09/16 17:59 06/11/16 06:28 DE REILLY Jun 11, 2016 08:13
--- NOTE | 2016-06-11 08:16 | General Progress Note ---
Subjective Allergies: Coded Allergies: No Known Allergies (Unverified , 05/30/16) Subjective Awaiting consultation note and labs, currently plt count 36k, hold off on xarelto until improves. CBC pending as is peripheral smear, medications have been reviewed. If at all possible, can consider to change zosyn to different antibiotic as per ID service as implicated in thrombocytopenia Objective Last 24 Hour Vital Signs Date Time Temp Pulse Resp B/P Pulse Ox O2 Delivery O2 Flow Rate FiO2 06/11/16 06:00 91 26 116/54 97 Nasal Cannula 2.0 06/11/16 05:00 99.9 94 24 118/59 97 Nasal Cannula 2.0 06/11/16 04:00 90 06/11/16 04:00 91 31 118/58 97 Nasal Cannula 2.0 06/11/16 03:00 90 31 126/59 94 Nasal Cannula 2.0 06/11/16 02:00 88 30 122/58 97 Nasal Cannula 2.0 06/11/16 01:00 88 21 110/58 97 Nasal Cannula 2.0 06/11/16 00:00 99.1 87 21 109/69 100 Nasal Cannula 2.0 06/11/16 00:00 87 06/10/16 23:00 89 25 122/78 96 Nasal Cannula 2.0 06/10/16 22:00 93 25 127/68 96 Nasal Cannula 2.0 06/10/16 21:00 90 25 123/61 96 Nasal Cannula 2.0 06/10/16 20:55 91 124/65 06/10/16 20:00 87 27 127/65 95 Nasal Cannula 2.0 06/10/16 20:00 87 06/10/16 19:00 84 30 139/63 96 Nasal Cannula 2.0 06/10/16 18:50 Nasal Cannula 2.0 28 06/10/16 18:50 99 Nasal Cannula 2.0 28 06/10/16 18:00 80 23 128/65 100 Nasal Cannula 2.0 06/10/16 17:00 91 24 133/100 100 Nasal Cannula 2.0 06/10/16 16:00 98.2 83 24 122/61 100 Nasal Cannula 2.0 06/10/16 16:00 83 06/10/16 15:00 91 24 122/66 100 Nasal Cannula 2.0 06/10/16 14:00 89 24 129/74 100 Nasal Cannula 2.0 06/10/16 13:00 85 24 125/64 100 Nasal Cannula 2.0 06/10/16 12:00 98.5 76 23 129/60 100 Nasal Cannula 2.0 06/10/16 12:00 75 06/10/16 11:00 77 23 127/82 100 Nasal Cannula 2.0 06/10/16 10:00 74 23 107/60 100 Nasal Cannula 2.0 06/10/16 09:00 83 19 117/61 100 Nasal Cannula 2.0 Intake and Output 06/10/16 06/11/16 19:00 07:00 Intake Total 2088.23 ml 2232.4 ml Output Total 1450 ml 1420 ml Balance 638.23 ml 812.4 ml IV Total 2088.23 ml 2092.4 ml Tube Feeding 140 ml Output Urine Total 1450 ml 1420 ml # Bowel Movements 3 2 Laboratory Tests 06/10/16 09:45: Lactic Acid Level 2.00, Beta-Hydroxybutyric Acid [Pending] 06/10/16 16:10: Erythrocyte Sedimentation Rate 93H, Reticulocyte Count 0.7, Haptoglobin 209H, Prothrombin Time 11.3, Prothromb Time International Ratio 1.1, Iron Level 24L, Total Iron Binding Capacity 163L, Percent Iron Saturation 15, Unsaturated Iron Binding 139, Ferritin 1416H, Lactate Dehydrogenase 853H, C-Reactive Protein, Quantitative 14.3H, Vitamin B12 Level 1667H, Folate [Pending] 06/11/16 03:55: Sodium Level 158H, Potassium Level 3.1L, Chloride Level 113H, Carbon Dioxide Level 21, Anion Gap 24H, Blood Urea Nitrogen 57#H, Creatinine 2.5H, Estimat Glomerular Filtration Rate 26.7, Glucose Level 198H, Calcium Level 8.5L, Total Creatine Kinase 4593H Height (Feet): 5 Height (Inches): 11.00 Weight (Pounds): 165 ALVARO VILLALBA Jun 11, 2016 08:16
[2016-06-11] MEDS: Docusate 100mg tablet NG SCH ×2 (08:26→17:50)
[2016-06-11] MEDS: Metoprolol 50mg tab ORAL SCH ×2 (08:26→20:56)
[2016-06-11] MEDS ORDERED: KCl 10% 40mEq/30ml liquid NG ONE (08:30)
--- NOTE | 2016-06-11 08:48 | General Progress Note ---
Assessment/Plan Problem List: (1) Acute renal failure ICD Codes: N17.9 - Acute kidney failure, unspecified SNOMED: 47397674 Qualifiers: Qualified Codes: N17.0 - Acute kidney failure with tubular necrosis (2) Encephalopathy ICD Codes: G93.40 - Encephalopathy, unspecified SNOMED: 08110051, 919422200 (3) DKA (diabetic ketoacidoses) ICD Codes: E13.10 - Other specified diabetes mellitus with ketoacidosis without coma SNOMED: 191141045, 53541409 Qualifiers: Qualified Codes: E13.11 - Other specified diabetes mellitus with ketoacidosis with coma (4) Leukocytosis ICD Codes: D72.829 - Elevated white blood cell count, unspecified SNOMED: 175535373, 732663535 Qualifiers: Qualified Codes: D72.829 - Elevated white blood cell count, unspecified (5) Altered level of consciousness ICD Codes: R40.4 - Transient alteration of awareness SNOMED: 7323064 Status: stable, deteriorating Assessment/Plan cont aggressive IVF insulin drip IV abx per ID resp care/o2 ngt feeds no transfusion per family monitor h/h. may need ivc filter if bleeding off heparin drip due to low plts- on xarelto check echo vascular eval appreciated heme eval pending podiatry consult remain critical and guarded Subjective ROS Limited/Unobtainable: Yes Constitutional: Reports: malaise, weakness HEENT: Reports: no symptoms Cardiovascular: Reports: no symptoms Respiratory: Reports: cough, shortness of breath Gastrointestinal/Abdominal: Reports: difficulty swallowing Genitourinary: Reports: no symptoms Neurologic/Psychiatric: Reports: pre-existing deficit Endocrine: Reports: no symptoms Hematologic/Lymphatic: Reports: anemia Allergies: Coded Allergies: No Known Allergies (Unverified , 05/30/16) All Systems: reviewed and negative except above Subjective remains on insulin drip. o2 requirements. confused.uop improving. renal fxn better. now has ischemic right hand and bilteral foot/toes. decreased h/h noted. pt is jehovah witness. d/w family aware of pts critical status. they declined transfusion due to bapt[employer] reasons Objective Last 24 Hour Vital Signs Date Time Temp Pulse Resp B/P Pulse Ox O2 Delivery O2 Flow Rate FiO2 06/11/16 06:00 91 26 116/54 97 Nasal Cannula 2.0 06/11/16 05:00 99.9 94 24 118/59 97 Nasal Cannula 2.0 06/11/16 04:00 90 06/11/16 04:00 91 31 118/58 97 Nasal Cannula 2.0 06/11/16 03:00 90 31 126/59 94 Nasal Cannula 2.0 06/11/16 02:00 88 30 122/58 97 Nasal Cannula 2.0 06/11/16 01:00 88 21 110/58 97 Nasal Cannula 2.0 06/11/16 00:00 99.1 87 21 109/69 100 Nasal Cannula 2.0 06/11/16 00:00 87 06/10/16 23:00 89 25 122/78 96 Nasal Cannula 2.0 06/10/16 22:00 93 25 127/68 96 Nasal Cannula 2.0 06/10/16 21:00 90 25 123/61 96 Nasal Cannula 2.0 06/10/16 20:55 91 124/65 06/10/16 20:00 87 27 127/65 95 Nasal Cannula 2.0 06/10/16 20:00 87 06/10/16 19:00 84 30 139/63 96 Nasal Cannula 2.0 06/10/16 18:50 Nasal Cannula 2.0 28 06/10/16 18:50 99 Nasal Cannula 2.0 28 06/10/16 18:00 80 23 128/65 100 Nasal Cannula 2.0 06/10/16 17:00 91 24 133/100 100 Nasal Cannula 2.0 06/10/16 16:00 98.2 83 24 122/61 100 Nasal Cannula 2.0 06/10/16 16:00 83 06/10/16 15:00 91 24 122/66 100 Nasal Cannula 2.0 06/10/16 14:00 89 24 129/74 100 Nasal Cannula 2.0 06/10/16 13:00 85 24 125/64 100 Nasal Cannula 2.0 06/10/16 12:00 98.5 76 23 129/60 100 Nasal Cannula 2.0 06/10/16 12:00 75 06/10/16 11:00 77 23 127/82 100 Nasal Cannula 2.0 06/10/16 10:00 74 23 107/60 100 Nasal Cannula 2.0 06/10/16 09:00 83 19 117/61 100 Nasal Cannula 2.0 Intake and Output 06/10/16 06/11/16 19:00 07:00 Intake Total 2088.23 ml 2232.4 ml Output Total 1450 ml 1420 ml Balance 638.23 ml 812.4 ml IV Total 2088.23 ml 2092.4 ml Tube Feeding 140 ml Output Urine Total 1450 ml 1420 ml # Bowel Movements 3 2 Laboratory Tests 06/10/16 09:45: Lactic Acid Level 2.00, Beta-Hydroxybutyric Acid [Pending] 06/10/16 16:10: Erythrocyte Sedimentation Rate 93H, Reticulocyte Count 0.7, Haptoglobin 209H, Prothrombin Time 11.3, Prothromb Time International Ratio 1.1, Iron Level 24L, Total Iron Binding Capacity 163L, Percent Iron Saturation 15, Unsaturated Iron Binding 139, Ferritin 1416H, Lactate Dehydrogenase 853H, C-Reactive Protein, Quantitative 14.3H, Vitamin B12 Level 1667H, Folate [Pending] 06/11/16 03:55: Sodium Level 158H, Potassium Level 3.1L, Chloride Level 113H, Carbon Dioxide Level 21, Anion Gap 24H, Blood Urea Nitrogen 57#H, Creatinine 2.5H, Estimat Glomerular Filtration Rate 26.7, Glucose Level 198H, Calcium Level 8.5L, Total Creatine Kinase 4593H Height (Feet): 5 Height (Inches): 11.00 Weight (Pounds): 165 Objective eneral Appearance: WD/WN, alert, confused Neck: supple Cardiovascular: regular rhythm Respiratory/Chest: lungs clear Abdomen: normal bowel sounds, non tender, soft, no organomegaly, no mass Edema: mild edema Neurologic: alert Skin: cyanotic - right hand fingers. cyanotic toes/forefoot bilaterally. DARYN JEREZ Jun 11, 2016 08:48
[2016-06-11] MEDS: Levemir Flexpen SUBQ SCH ×2 (09:11→20:56)
--- NOTE | 2016-06-11 10:08 | Consultation ---
DATE OF CONSULTATION: 06/10/2016 VASCULAR SURGERY CONSULTATION: REFERRING PHYSICIAN: Raul Del Cid M.D. REASON FOR EVALUATION: Bilateral foot and right finger cyanosis pregangrenous lesion. HISTORY OF PRESENTING COMPLAINT: This is a 55-year-old male who presented through the emergency room with worsening hyperglycemia out of control. The patient is a [facility] resident traumatic encephalopathy, diabetes mellitus, and seizure disorder. The patient currently in the ICU bed B, drowsy, and poorly responsive. The patient is on insulin drip for his diabetic ketoacidosis. He is being evaluated by Renal service, medical service. He is getting IV fluid and antibiotics. The patient was found to have bilateral cyanotic toes as well as cyanotic blue right hand fingers. All the pulses are palpable. Ultrasound reveals extensive lower extremity deep venous thrombosis. Vascular Surgery is consulted for evaluation. All the history is obtained from the medical records. PAST MEDICAL HISTORY: As above. History of traumatic encephalopathy, diabetes mellitus, hypertension, seizure disorder, hypertensive heart disease, prior history of sternotomy, and [facility] resident. MEDICATIONS: See attached MAR. ALLERGIES: No known drug allergies. SOCIAL HISTORY: Unobtainable. FAMILY HISTORY: Unobtainable. REVIEW OF SYSTEMS: Unobtainable given the patient's altered mental status. PHYSICAL EXAMINATION: GENERAL: The patient is confused now. Chronically ill appearing, in no distress. He has palpable radial pulses bilaterally VITAL SIGNS: Afebrile, 98 degrees, heart rate 100, blood pressure 110/70, and respirations 16. HEART: Regular rate and rhythm. LUNGS: Rhonchi bilateral. He has palpable femoral pulses and palpable popliteal pulses and pedal pulses bilaterally. ABDOMEN: Soft and nontender. EXTREMITIES: Strong right ulnar and palmar arch Doppler. All the fingers are cyanotic up to the distal hand and pregangrenous area. The left hand is warm with intact radial pulses. Feet are warm. He does have distal toe cyanosis of the entire ten toes with pregangrenous areas. LABORATORY DATA: Revealed on admission glucose 612, WBC 14,000, BUN 96, creatinine 5.6, sodium 164, potassium 5.4, and chloride 122. IMPRESSION: 1. Extensive cyanosis and pregangrenous lesions of both distal feet and toes and right hand distal and fingers with intact arterial palpable pulses . 2. Extensive lower extremity deep venous thrombosis . 3. Disseminated intravascular coagulopathy with microvascular emboli with likely sepsis. 4. Rhabdomyolysis with renal failure with diabetic ketoacidosis. 5. History of seizure disorder. 6. Encephalopathy. 7. Hypertension. 8. Altered mental status likely from uremia and sepsis. PLAN AND RECOMMENDATION: Continue ICU supportive care. Intravenous resuscitation fluid sugar control per Endocrine service. Hematology evaluation. Anticoagulation. The patient may require dialysis per Renal service and IVC filter if complication with anticoagulation or develops more proximal clot. Continued the decubitus precautions. We will need to wait for demarcation of the pregangrenous areas of the feet and right hand prior to eventual transmetatarsal amputation and right finger amputation with Podiatry and plastic surgery. Olu Rangel M.D. DR: Nathalia JOB#: [id number] CC: Raul Del Cid M.D. MTDD
--- NOTE | 2016-06-11 10:27 | General Progress Note ---
Assessment/Plan Problem List: (1) DKA (diabetic ketoacidoses) ICD Codes: E13.10 - Other specified diabetes mellitus with ketoacidosis without coma SNOMED: 345979176, 88379770 Qualifiers: Qualified Codes: E13.11 - Other specified diabetes mellitus with ketoacidosis with coma (2) Leukocytosis ICD Codes: D72.829 - Elevated white blood cell count, unspecified SNOMED: 960441842, 225979068 Qualifiers: Qualified Codes: D72.829 - Elevated white blood cell count, unspecified (3) Altered level of consciousness ICD Codes: R40.4 - Transient alteration of awareness SNOMED: 3639471 (4) Acute renal failure ICD Codes: N17.9 - Acute kidney failure, unspecified SNOMED: 83785414 Qualifiers: Qualified Codes: N17.0 - Acute kidney failure with tubular necrosis (5) Hypernatremia ICD Codes: E87.0 - Hyperosmolality and hypernatremia SNOMED: 87968596 (6) Metabolic acidosis ICD Codes: E87.2 - Acidosis SNOMED: 65702046 (7) Ischemia of digits of hand ICD Codes: I99.8 - Other disorder of circulatory system SNOMED: 984638916 (8) Ischemia of extremity ICD Codes: I99.8 - Other disorder of circulatory system SNOMED: 81164561223263 Assessment/Plan anion gap is still open serum ketone ordered and is pending cotninue with IV insulin - tight glycemic control is indicated in setting of cyanosis Subjective ROS Limited/Unobtainable: Yes Allergies: Coded Allergies: No Known Allergies (Unverified , 05/30/16) Subjective events noted - interval notes reviewed in critical condition in ICU Objective Last 24 Hour Vital Signs Date Time Temp Pulse Resp B/P Pulse Ox O2 Delivery O2 Flow Rate FiO2 06/11/16 08:26 104 133/59 06/11/16 06:00 91 26 116/54 97 Nasal Cannula 2.0 06/11/16 05:00 99.9 94 24 118/59 97 Nasal Cannula 2.0 06/11/16 04:00 90 06/11/16 04:00 91 31 118/58 97 Nasal Cannula 2.0 06/11/16 03:00 90 31 126/59 94 Nasal Cannula 2.0 06/11/16 02:00 88 30 122/58 97 Nasal Cannula 2.0 06/11/16 01:00 88 21 110/58 97 Nasal Cannula 2.0 06/11/16 00:00 99.1 87 21 109/69 100 Nasal Cannula 2.0 06/11/16 00:00 87 06/10/16 23:00 89 25 122/78 96 Nasal Cannula 2.0 06/10/16 22:00 93 25 127/68 96 Nasal Cannula 2.0 06/10/16 21:00 90 25 123/61 96 Nasal Cannula 2.0 06/10/16 20:55 91 124/65 06/10/16 20:00 87 27 127/65 95 Nasal Cannula 2.0 06/10/16 20:00 87 06/10/16 19:00 84 30 139/63 96 Nasal Cannula 2.0 06/10/16 18:50 Nasal Cannula 2.0 28 06/10/16 18:50 99 Nasal Cannula 2.0 28 06/10/16 18:00 80 23 128/65 100 Nasal Cannula 2.0 06/10/16 17:00 91 24 133/100 100 Nasal Cannula 2.0 06/10/16 16:00 98.2 83 24 122/61 100 Nasal Cannula 2.0 06/10/16 16:00 83 06/10/16 15:00 91 24 122/66 100 Nasal Cannula 2.0 06/10/16 14:00 89 24 129/74 100 Nasal Cannula 2.0 06/10/16 13:00 85 24 125/64 100 Nasal Cannula 2.0 06/10/16 12:00 98.5 76 23 129/60 100 Nasal Cannula 2.0 06/10/16 12:00 75 06/10/16 11:00 77 23 127/82 100 Nasal Cannula 2.0 Intake and Output 06/10/16 06/11/16 19:00 07:00 Intake Total 2088.23 ml 2411.4 ml Output Total 1450 ml 1420 ml Balance 638.23 ml 991.4 ml IV Total 2088.23 ml 2271.4 ml Tube Feeding 140 ml Output Urine Total 1450 ml 1420 ml # Bowel Movements 3 2 Laboratory Tests 06/10/16 16:10: Erythrocyte Sedimentation Rate 93H, Reticulocyte Count 0.7, Haptoglobin 209H, Prothrombin Time 11.3, Prothromb Time International Ratio 1.1, Iron Level 24L, Total Iron Binding Capacity 163L, Percent Iron Saturation 15, Unsaturated Iron Binding 139, Ferritin 1416H, Lactate Dehydrogenase 853H, C-Reactive Protein, Quantitative 14.3H, Vitamin B12 Level 1667H, Folate [Pending] 06/11/16 03:55: Sodium Level 158H, Potassium Level 3.1L, Chloride Level 113H, Carbon Dioxide Level 21, Anion Gap 24H, Blood Urea Nitrogen 57#H, Creatinine 2.5H, Estimat Glomerular Filtration Rate 26.7, Glucose Level 198H, Calcium Level 8.5L, Total Creatine Kinase 4593H Height (Feet): 5 Height (Inches): 11.00 Weight (Pounds): 165 General Appearance: severe distress EENT: pale conjunctivae Neck: normal alignment Cardiovascular: tachycardia Respiratory/Chest: decreased breath sounds Abdomen: normal bowel sounds Pelvis: normal external exam Extremities: other - cyanosis finger and toes Objective Current Medications Medications (Trade) Dose Ordered Sig/Mateo Route PRN Reason Start Time Stop Time Status Last Admin Dose Admin Dextrose (Dextrose 50%) PRN PRN IV HYPOGLYCEMIA 06/11/16 00:30 07/11/16 00:29 Docusate Sodium (Colace) 100 mg BID NG 06/08/16 11:00 07/08/16 10:59 06/11/16 08:26 Epoetin Zia (Procrit (for non ESRD use)) 5,000 units MON-WED-SUN SUBQ 06/12/16 21:00 07/12/16 20:59 UNV Insulin Detemir (Levemir) 10 units Q12HR SUBQ 06/07/16 21:00 07/07/16 20:59 06/11/16 09:11 Insulin Human Regular (NovoLIN R) 5 units PRN PRN IV BS 200-299 06/11/16 00:30 07/11/16 00:29 06/11/16 04:17 Insulin Human Regular (NovoLIN R) 10 units PRN PRN IV BS=>300 06/11/16 00:30 07/11/16 00:29 Insulin Human Regular 100 units/ Sodium Chloride 101 ml @ 0 mls/hr Q24H IV 06/11/16 02:37 07/11/16 00:59 06/11/16 02:44 Iron Sucrose/ Sodium Chloride (Venofer/Sodium Chloride 50ml bag) 55 ml @ 200 mls/hr BEDTIME IVPB 06/11/16 21:00 06/15/16 21:17 UNV Metoprolol Tartrate 50 mg 50 mg EVERY 12 HOURS ORAL 06/10/16 09:00 07/10/16 08:59 06/11/16 08:26 Miscellaneous Medication 1 ea 1 ea PRN PRN MISC Per rx protocol 06/11/16 00:30 07/11/16 00:29 06/11/16 04:22 Piperacillin Sod/ Tazobactam Sod/ Dextrose (Zosyn/D5W 50ml) 55 ml @ 110 mls/hr Q6HR IV 06/11/16 00:00 06/18/16 00:00 06/11/16 06:28 Sodium Bicarbonate 50 ml/ Dextrose 1,050 ml @ 175 mls/hr Q6H IV 06/10/16 17:00 07/10/16 16:59 06/11/16 06:26 Sodium Citrate (Bicitra) 30 ml EVERY 6 HOURS NG 06/09/16 18:00 07/09/16 17:59 06/11/16 06:28 Item Value Date Time Bedside Blood Glucose 162 mg/dl H 06/11/16 0911 Bedside Blood Glucose 142 mg/dl H 06/11/16 0600 Bedside Blood Glucose 196 mg/dl H 06/11/16 0244 Bedside Blood Glucose 234 mg/dl H 06/10/16 2200 Bedside Blood Glucose 253 mg/dl H 06/10/16 1800 Bedside Blood Glucose 292 mg/dl H 06/10/16 1412 Bedside Blood Glucose 243 mg/dl H 06/10/16 1000 JOELLEN LEARY Jun 11, 2016 10:27
[2016-06-11 11:27] LABS: MEAN CORPUSCULAR HEMOGLOBIN 25.1 PG (27.0-31.0); MEAN CORPUSCULAR HGB CONC 31.3 G/DL (32.0-36.0); MEAN CORPUSCULAR VOLUME 80 FL (80-99); MEAN PLATELET VOLUME 10.1 FL (6.5-10.1); PLATELET COUNT 52 K/UL (150-450); RED BLOOD COUNT 3.08 M/UL (4.70-6.10); RED CELL DISTRIBUTION WIDTH 16.7 % (11.6-14.8); WHITE BLOOD COUNT 10.8 K/UL (4.8-10.8)
[2016-06-11 12:15] LABS: ANISOCYTOSIS 1+; BAND NEUTROPHILS % (MANUAL) 6 % (0-8); BASOPHILS % (MANUAL) 0 % (0-2); EOSINOPHILS % (MANUAL) 1 % (0-3); HYPOCHROMASIA 1+; LYMPHOCYTES % (MANUAL) 7 % (20-45); NEUTROPHILS % (MANUAL) 83 % (45-75); NUCLEATED RED BLOOD CELLS 2 /100 WBC; PLATELET ESTIMATE DECREASED; PLATELET MORPHOLOGY NORMAL; TOTAL CELLS COUNTED 100
[2016-06-11 12:16] LABS: MICROCYTES 1+; POLYCHROMASIA OCCASIONAL
[2016-06-11 12:56] LABS: PSA TOTAL 1.5 ng/mL (< 3.5)
--- NOTE | 2016-06-11 13:04 | Nephrology Progress Note ---
Assessment/Plan Problem List: (1) Hypovolemic shock (2) Metabolic acidosis (3) Hypernatremia (4) Altered level of consciousness (5) Acute renal failure (6) Encephalopathy (7) Ischemia of digits of hand (8) Ischemia of extremity (9) Rhabdomyolysis Plan creatinine 1.4 04/2016 continue hydration, +bicarb,serial lytes, reduce iv rate , grave prognosis , severe rhabdo iv with bicarb, parish improving Subjective ROS Limited/Unobtainable: Yes Objective Objective Last 24 Hour Vital Signs Date Time Temp Pulse Resp B/P Pulse Ox O2 Delivery O2 Flow Rate FiO2 06/11/16 12:00 99.5 88 20 104/55 96 Nasal Cannula 2.0 06/11/16 12:00 90 06/11/16 11:00 86 19 102/50 93 Nasal Cannula 2.0 06/11/16 10:00 84 19 107/53 95 Nasal Cannula 2.0 06/11/16 09:00 85 27 116/54 95 Nasal Cannula 2.0 06/11/16 08:26 104 133/59 06/11/16 08:00 99.6 90 26 124/65 97 Nasal Cannula 2.0 06/11/16 08:00 83 06/11/16 07:00 76 26 120/61 97 Nasal Cannula 2.0 06/11/16 06:00 91 26 116/54 97 Nasal Cannula 2.0 06/11/16 05:00 99.9 94 24 118/59 97 Nasal Cannula 2.0 06/11/16 04:00 90 06/11/16 04:00 91 31 118/58 97 Nasal Cannula 2.0 06/11/16 03:00 90 31 126/59 94 Nasal Cannula 2.0 06/11/16 02:00 88 30 122/58 97 Nasal Cannula 2.0 06/11/16 01:00 88 21 110/58 97 Nasal Cannula 2.0 06/11/16 00:00 99.1 87 21 109/69 100 Nasal Cannula 2.0 06/11/16 00:00 87 06/10/16 23:00 89 25 122/78 96 Nasal Cannula 2.0 06/10/16 22:00 93 25 127/68 96 Nasal Cannula 2.0 06/10/16 21:00 90 25 123/61 96 Nasal Cannula 2.0 1/14/17 20:55 91 124/65 1/14/17 20:00 87 27 127/65 95 Nasal Cannula 2.0 06/10/16 20:00 87 06/10/16 19:00 84 30 139/63 96 Nasal Cannula 2.0 06/10/16 18:50 Nasal Cannula 2.0 28 06/10/16 18:50 99 Nasal Cannula 2.0 28 06/10/16 18:00 80 23 128/65 100 Nasal Cannula 2.0 06/10/16 17:00 91 24 133/100 100 Nasal Cannula 2.0 06/10/16 16:00 98.2 83 24 122/61 100 Nasal Cannula 2.0 06/10/16 16:00 83 06/10/16 15:00 91 24 122/66 100 Nasal Cannula 2.0 06/10/16 14:00 89 24 129/74 100 Nasal Cannula 2.0 Intake and Output 06/10/16 06/11/16 19:00 07:00 Intake Total 2088.23 ml 2431.4 ml Output Total 1450 ml 1620 ml Balance 638.23 ml 811.4 ml IV Total 2088.23 ml 2271.4 ml Tube Feeding 160 ml Output Urine Total 1450 ml 1620 ml # Bowel Movements 3 2 Laboratory Tests 06/10/16 16:10: Erythrocyte Sedimentation Rate 93H, Reticulocyte Count 0.7, Haptoglobin 209H, Prothrombin Time 11.3, Prothromb Time International Ratio 1.1, Iron Level 24L, Total Iron Binding Capacity 163L, Percent Iron Saturation 15, Unsaturated Iron Binding 139, Ferritin 1416H, Lactate Dehydrogenase 853H, C-Reactive Protein, Quantitative 14.3H, Vitamin B12 Level 1667H, Folate [Pending] 06/11/16 03:55: Sodium Level 158H, Potassium Level 3.1L, Chloride Level 113H, Carbon Dioxide Level 21, Anion Gap 24H, Blood Urea Nitrogen 57#H, Creatinine 2.5H, Estimat Glomerular Filtration Rate 26.7, Glucose Level 198H, Calcium Level 8.5L, Total Creatine Kinase 4593H 06/11/16 10:55: White Blood Count 10.8, Red Blood Count 3.08L, Hemoglobin 7.7L, Hematocrit 24.7L , Mean Corpuscular Volume 80, Mean Corpuscular Hemoglobin 25.1L, Mean Corpuscular Hemoglobin Concent 31.3L, Red Cell Distribution Width 16.7H, Platelet Count 52L, Mean Platelet Volume 10.1, Neutrophils (%) (Auto) , Lymphocytes (%) (Auto) , Monocytes (%) (Auto) , Eosinophils (%) (Auto) , Basophils (%) (Auto) , Differential Total Cells Counted 100, Neutrophils % ( Manual) 83H, Lymphocytes % (Manual) 7L, Monocytes % (Manual) 3, Eosinophils % ( Manual) 1, Basophils % (Manual) 0, Band Neutrophils 6, Nucleated Red Blood Cells 2, Platelet Estimate DecreasedL, Platelet Morphology Normal, Polychromasia Occasional, Hypochromasia 1+, Anisocytosis 1+, Microcytosis 1+, Fibrinogen 509H, D-Dimer 8901H, Ammonia 19, Carcinoembryonic Antigen 3.6H, Prostate Specific Antigen 1.5, Heparin-PF4 Antibody Screen [Pending], Hepatitis A IgM Antibody [Pending], Hepatitis B Surface Antigen [Pending], Hepatitis B Core IgM Antibody [Pending], Hepatitis C Antibody [Pending] Height (Feet): 5 Height (Inches): 11.00 Weight (Pounds): 165 General Appearance: confused EENT: normal ENT inspection Neck: normal alignment Cardiovascular: regular rhythm, tachycardia Respiratory/Chest: lungs clear Abdomen: non tender, soft, other - ascites Extremities: moderate edema Neurologic: unresponsive SHASTA REDDY Jun 11, 2016 13:04
--- NOTE | 2016-06-11 13:21 | Consultation ---
Consult Note Consult Note 56 year old male with history of history of traumatic encephalopathy, renal failure, seizure disorder, hypertension, and diabetes who was admitted from a SNF secondary to sepsis and DKA. Patient was noted to have acute ischemia of bilateral toes Assessment/Plan Assessment: - Bilateral foot acute ischemia, left worse than right - Sepsis - DKA - Bilateral lower extremity DVT - Traumatic encephalopathy - Renal failure - T2DM Plan: - Watchful waiting for demarcation of bilateral foot gangrene - Keep feet warm and monitor daily for possible transformation to wet gangrene or open ulceration - Offload heels - Vascular loan specialist is also following the patient Lang Klein DPM Jun 11, 2016 13:21
[2016-06-11] MEDS: POTASSIUM CHLORIDE IV SCH ×2 (15:25→22:04)
[2016-06-11] MEDS: SODIUM BICARBONATE IV SCH ×2 (15:25→22:04)
[2016-06-11] MEDS: D5W IV SCH ×2 (15:25→22:04)
[2016-06-11] MEDS: Piperacillin/Tazobactam 2.25 GM in NS 55 ML IV SCH (17:51)
--- NOTE | 2016-06-11 21:18 | Progress Note ---
DATE: 06/10/2016 CARDIOLOGY PROGRESS NOTE SUBJECTIVE: The patient remains in the intensive care unit. Condition remains critical. Prognosis guarded. The patient remains on an insulin drip. Platelet count has dropped. He is off heparin drip. Xarelto was added. OBJECTIVE: VITAL SIGNS: Blood pressure 122/61, pulse 83, respirations 24, and afebrile. LUNGS: Bilateral breath sounds. HEART: Regular rhythm and rate. Normal S1 and S2 with a fourth heart sound. ABDOMEN: Soft and nontender. EXTREMITIES: With dependent edema. IMPRESSION: 1. Acute renal failure. 2. Thrombocytopenia. 3. Diabetic ketoacidosis. 4. Severe sepsis with shock. 5. Hypovolemia. 6. Severe dehydration. 7. Hypernatremia. 8. Rhabdomyolysis. PLAN: 1. Continue volume resuscitation. 2. Hold heparin. 3. Monitor for signs of bleeding. 4. Monitor platelet count. 5. Insulin drip per audit spec. 6. Aspiration precautions. 7. Broad-spectrum antibiotics. Morales Serrano M.D. DR: PAYAM JOB#: [id number] CC:
[2016-06-12] VITALS (33 sets, daily range): BP systolic 94–126; BP diastolic 51–77
[2016-06-12] MEDS: Sodium Citrate 30ml NG SCH ×3 (00:49→12:36)
[2016-06-12] MEDS: Insulin Rate Change 1 Each MISC PRN ×11 (01:00→21:57)
--- NOTE | 2016-06-12 03:08 | Progress Note ---
DATE: 06/11/2016 CARDIOLOGY PROGRESS NOTE SUBJECTIVE: The patient's condition continues to be critical with guarded prognosis. He continues to have progressive ischemia of his distal lower extremities and right hand. Based on vascular evaluation, this is due to small-vessel disease. The patient remains on volume resuscitation, aggressive IV fluid support, insulin drip. He is a Muslim and family members have confirmed that no transfusions of blood will be accepted. OBJECTIVE: VITAL SIGNS: Blood pressure 116/54, pulse 91, respiratory rate 26, and temperature 99.9. NECK: Supple. LUNGS: Clear. CARDIAC: Regular rhythm and rate. Normal S1 and S2 with a fourth heart sound. ABDOMEN: Soft. EXTREMITIES: With gangrenous changes of the distal toes bilaterally and right hand involving the thumb area and proximal hand. Palpable pulses are noted. IMPRESSION: 1. Gangrene. 2. Microvascular ischemia. 3. Hypovolemia. 4. Dehydration. 5. Shock. 6. Diabetic ketoacidosis. 7. Metabolic acidosis. 8. Acute renal failure. 9. Rhabdomyolysis. 10. Thrombocytopenia. PLAN: Pain control. Cautious anticoagulation with Xarelto. Hydration. Antimicrobials. Stress ulcer prophylaxis. Insulin drip. Skin care. Morales Serrano M.D. DR: JACKLYN JOB#: [id number] CC:
[2016-06-12 04:58] LABS: MEAN CORPUSCULAR HEMOGLOBIN 25.2 PG (27.0-31.0); MEAN CORPUSCULAR VOLUME 81 FL (80-99); MEAN PLATELET VOLUME 11.7 FL (6.5-10.1); PLATELET COUNT 66 K/UL (150-450); RED CELL DISTRIBUTION WIDTH 18.1 % (11.6-14.8); WHITE BLOOD COUNT 10.6 K/UL (4.8-10.8)
[2016-06-12 05:30] LABS: CALCIUM 8.3 mg/dL (8.6-10.2); CREATININE 1.7 mg/dL (0.7-1.2); GLOMERULAR FILTRATION RATE 41.6 mL/min (>60); POTASSIUM 3.2 mEQ/L (3.4-4.9)
[2016-06-12] MEDS: D5W IV SCH ×4 (05:59→22:56)
[2016-06-12] MEDS: Piperacillin/Tazobactam 2.25 GM in NS 55 ML IV SCH ×3 (05:59)
[2016-06-12] MEDS: POTASSIUM CHLORIDE IV SCH ×4 (05:59→22:56)
[2016-06-12] MEDS: SODIUM BICARBONATE IV SCH ×4 (05:59→22:56)
--- NOTE | 2016-06-12 08:16 | General Progress Note ---
Assessment/Plan Assessment/Plan Assessment: 1. Bilateral DVTs of the lower extremities - plt count although uptrending remains low and patient with anemia thus contraindicated for anticoagulation with xarelto 2. Anemia 2/2 chronic disease - patient is JW, refusing blood transfusions, is on epogen and iron 3. Leukocytosis potentially 2/2 infection 4. Thrombocytopenia - likely 2/2 infection and consumptove state, peripheral smear pending. Hepatitis panel negative 5. Toe ischemia and microvascular ischemia 6. ARF due to severe rhabdo 7. Dehydration 8. Shock 9. DKA Recommendations: - Plan for IVC filter given inability to anticoagulate at this time - Continue epogen - Continue IV iron - Refusing blood products - Hgb goal >7 - Plt goal >10k - DIC panel reviewed - Abx to continue per ID - DW Staff Sincerely, Alvaro Henderson MD Subjective Constitutional: Reports: no symptoms HEENT: Reports: no symptoms Cardiovascular: Reports: no symptoms Respiratory: Reports: no symptoms Gastrointestinal/Abdominal: Reports: poor appetite Genitourinary: Reports: no symptoms Neurologic/Psychiatric: Reports: no symptoms Endocrine: Reports: no symptoms Hematologic/Lymphatic: Reports: anemia Allergies: Coded Allergies: No Known Allergies (Unverified , 05/30/16) Subjective remains guarded, no fevers or chills reported Objective Last 24 Hour Vital Signs Date Time Temp Pulse Resp B/P Pulse Ox O2 Delivery O2 Flow Rate FiO2 06/12/16 07:00 101 22 114/60 96 Nasal Cannula 2.0 06/12/16 06:00 100 25 94/52 95 Nasal Cannula 2.0 06/12/16 05:00 100 25 112/62 96 Nasal Cannula 2.0 06/12/16 04:00 99.0 101 27 113/51 96 Nasal Cannula 2.0 06/12/16 04:00 97 06/12/16 03:00 102 26 116/62 94 Nasal Cannula 2.0 06/12/16 02:00 100 28 116/59 99 Nasal Cannula 2.0 06/12/16 01:00 99 21 116/59 99 Nasal Cannula 2.0 06/12/16 00:00 99.0 97 26 109/59 96 Nasal Cannula 2.0 06/11/16 23:14 93 06/11/16 23:00 97 22 121/51 96 Nasal Cannula 2.0 06/11/16 22:00 88 21 103/55 96 Nasal Cannula 2.0 06/11/16 21:00 103 19 118/61 95 Nasal Cannula 2.0 06/11/16 20:56 101 118/64 06/11/16 20:00 99 06/11/16 20:00 98.9 99 20 118/64 94 Nasal Cannula 2.0 06/11/16 19:45 Nasal Cannula 2.0 28 06/11/16 19:45 94 Nasal Cannula 2.0 28 06/11/16 19:00 104 20 115/61 94 Nasal Cannula 2.0 06/11/16 18:00 93 20 116/58 93 Nasal Cannula 2.0 06/11/16 17:00 99 20 119/57 93 Nasal Cannula 2.0 06/11/16 16:00 99.0 97 19 113/55 93 Nasal Cannula 2.0 06/11/16 16:00 94 06/11/16 15:00 92 20 119/84 93 Nasal Cannula 2.0 06/11/16 14:00 91 20 106/58 97 Nasal Cannula 2.0 06/11/16 13:00 90 19 105/56 97 Nasal Cannula 2.0 06/11/16 12:00 99.5 88 20 104/55 96 Nasal Cannula 2.0 06/11/16 12:00 90 06/11/16 11:00 86 19 102/50 93 Nasal Cannula 2.0 06/11/16 10:00 84 19 107/53 95 Nasal Cannula 2.0 06/11/16 09:00 85 27 116/54 95 Nasal Cannula 2.0 06/11/16 08:26 104 133/59 Intake and Output 06/11/16 06/12/16 19:00 07:00 Intake Total 2261 ml 2597 ml Output Total 890 ml 975 ml Balance 1371 ml 1622 ml Free Water 450 ml 450 ml IV Total 1571 ml 1847 ml Tube Feeding 240 ml 220 ml Other 80 ml Output Urine Total 890 ml 975 ml # Bowel Movements 2 Laboratory Tests 06/11/16 10:55: White Blood Count 10.8, Red Blood Count 3.08L, Hemoglobin 7.7L, Hematocrit 24.7L , Mean Corpuscular Volume 80, Mean Corpuscular Hemoglobin 25.1L, Mean Corpuscular Hemoglobin Concent 31.3L, Red Cell Distribution Width 16.7H, Platelet Count 52L, Mean Platelet Volume 10.1, Neutrophils (%) (Auto) , Lymphocytes (%) (Auto) , Monocytes (%) (Auto) , Eosinophils (%) (Auto) , Basophils (%) (Auto) , Differential Total Cells Counted 100, Neutrophils % ( Manual) 83H, Lymphocytes % (Manual) 7L, Monocytes % (Manual) 3, Eosinophils % ( Manual) 1, Basophils % (Manual) 0, Band Neutrophils 6, Nucleated Red Blood Cells 2, Platelet Estimate DecreasedL, Platelet Morphology Normal, Polychromasia Occasional, Hypochromasia 1+, Anisocytosis 1+, Microcytosis 1+, Fibrinogen 509H, D-Dimer 8901H, Ammonia 19, Carcinoembryonic Antigen 3.6H, Prostate Specific Antigen 1.5, Heparin-PF4 Antibody Screen [Pending], Hepatitis A IgM Antibody [Pending], Hepatitis B Surface Antigen [Pending], Hepatitis B Core IgM Antibody [Pending], Hepatitis C Antibody [Pending] 06/12/16 03:35: White Blood Count 10.6, Red Blood Count 3.30L, Hemoglobin 8.3L, Hematocrit 26.8L , Mean Corpuscular Volume 81, Mean Corpuscular Hemoglobin 25.2L, Mean Corpuscular Hemoglobin Concent 31.0L, Red Cell Distribution Width 18.1H, Platelet Count 66L, Mean Platelet Volume 11.7H, Neutrophils (%) (Auto) , Lymphocytes (%) (Auto) , Monocytes (%) (Auto) , Eosinophils (%) (Auto) , Basophils (%) (Auto) , Neutrophils % (Manual) [Pending], Lymphocytes % (Manual) [Pending], Platelet Estimate [Pending], Platelet Morphology [Pending], Sodium Level 155H, Potassium Level 3.2L, Chloride Level 111H, Carbon Dioxide Level 32H , Anion Gap 12, Blood Urea Nitrogen 33H, Creatinine 1.7H, Estimat Glomerular Filtration Rate 41.6, Glucose Level 137H, Calcium Level 8.3L Height (Feet): 5 Height (Inches): 11.00 Weight (Pounds): 165 General Appearance: no apparent distress EENT: TMs normal Neck: supple Cardiovascular: regular rhythm Respiratory/Chest: normal breath sounds Abdomen: non tender Extremities: non-tender Edema: no edema noted Leg (L), no edema noted Leg (R) Edema: mild edema Neurologic: alert Skin: warm/dry ALVARO HENDERSON Jun 12, 2016 08:16
--- NOTE | 2016-06-12 09:08 | Cardiology Report ---
APPROVED REPORT EXAM: Two-dimensional and M-mode echocardiogram with Doppler and color Doppler. INDICATION Atherosclerosis M-Mode DIMENSIONS IVSd1.5 (0.7-1.1cm)Left Atrium (MM)4.0 (1.6-4.0cm) LVDd3.8 (3.5-5.6cm)Aortic Root3.7 (2.0-3.7cm) PWd1.3 (0.7-1.1cm)Aortic Cusp Exc.1.8 (1.5-2.0cm) LVDs1.6 (2.5-4.0cm) PWs2.2 cm Technically difficult study due to poor acoustic windows. Normal left ventricular chamber size, systolic function and wall motion. Left ventricular ejection fraction estimated to be 60-65%. Mild left ventricular hypertrophy. All other cardiac chamber sizes are within normal limits. Mild focal aortic valve sclerosis with adequate cusp excursion Mildly thickened mitral valve leaflets with normal excursion. Mild mitral annulus and aortic root calcification. Pulmonic valve not well visualized. Normal tricuspid valve structure. IVC at normal size with physiologic collapse. A color flow and spectral Doppler study was performed and revealed: Trace aortic regurgitation. Trace mitral regurgitation. Mitral diastolic velocities suggest reduced left ventricular relaxation (Grade I). Trace tricuspid regurgitation. Tricuspid systolic velocities suggests peak right ventricular systolic pressure of 5mmHg.
[2016-06-12 09:23] LABS: ANISOCYTOSIS 2+; BAND NEUTROPHILS % (MANUAL) 0 % (0-8); BASOPHILS % (MANUAL) 0 % (0-2); EOSINOPHILS % (MANUAL) 3 % (0-3); HYPOCHROMASIA 2+; LYMPHOCYTES % (MANUAL) 13 % (20-45); NEUTROPHILS % (MANUAL) 80 % (45-75); PLATELET ESTIMATE DECREASED; PLATELET MORPHOLOGY NORMAL; TOTAL CELLS COUNTED 100
[2016-06-12] MEDS: Docusate 100mg tablet NG SCH ×2 (09:31→17:30)
[2016-06-12] MEDS: Metoprolol 50mg tab ORAL SCH ×2 (09:32→20:44)
[2016-06-12] MEDS: Levemir Flexpen SUBQ SCH ×2 (10:54→20:45)
--- NOTE | 2016-06-12 11:24 | Infectious Diseases Prog Note ---
Assessment/Plan Assessment/Plan antibiotics : vancomycin iv, zosyn A 1. leucocytosis improving 2. renal failure improving 3. nasal MRSA colonization 4. increased LFT 5. thrombocytopenia 6. DKA 7. fungal UTI 8. gram positive sepsis P 1. d/czosyn 2. d/c vancomycin 3. start ceftaroline, fluconazole 4. will follow up cultures Subjective Constitutional: Denies: chills, fever Respiratory: Denies: dry cough, shortness of breath Gastrointestinal/Abdominal: Denies: diarrhea, nausea, vomiting Musculoskeletal: Denies: pain Allergies: Coded Allergies: No Known Allergies (Unverified , 05/30/16) Objective Vital Signs Last 24 Hour Vital Signs Date Time Temp Pulse Resp B/P Pulse Ox O2 Delivery O2 Flow Rate FiO2 06/12/16 11:00 96 21 122/67 98 Nasal Cannula 2.0 06/12/16 10:00 113 21 120/57 98 Nasal Cannula 2.0 06/12/16 09:32 114 115/68 06/12/16 09:00 113 20 115/68 96 Nasal Cannula 2.0 06/12/16 08:00 99.0 108 23 115/63 97 Nasal Cannula 2.0 06/12/16 08:00 108 06/12/16 07:00 101 22 114/60 96 Nasal Cannula 2.0 06/12/16 06:00 100 25 94/52 95 Nasal Cannula 2.0 06/12/16 05:00 100 25 112/62 96 Nasal Cannula 2.0 06/12/16 04:00 99.0 101 27 113/51 96 Nasal Cannula 2.0 06/12/16 04:00 97 06/12/16 03:00 102 26 116/62 94 Nasal Cannula 2.0 06/12/16 02:00 100 28 116/59 99 Nasal Cannula 2.0 06/12/16 01:00 99 21 116/59 99 Nasal Cannula 2.0 06/12/16 00:00 99.0 97 26 109/59 96 Nasal Cannula 2.0 06/11/16 23:14 93 06/11/16 23:00 97 22 121/51 96 Nasal Cannula 2.0 06/11/16 22:00 88 21 103/55 96 Nasal Cannula 2.0 06/11/16 21:00 103 19 118/61 95 Nasal Cannula 2.0 06/11/16 20:56 101 118/64 1/15/17 20:00 99 06/11/16 20:00 98.9 99 20 118/64 94 Nasal Cannula 2.0 06/11/16 19:45 Nasal Cannula 2.0 28 06/11/16 19:45 94 Nasal Cannula 2.0 28 06/11/16 19:00 104 20 115/61 94 Nasal Cannula 2.0 06/11/16 18:00 93 20 116/58 93 Nasal Cannula 2.0 06/11/16 17:00 99 20 119/57 93 Nasal Cannula 2.0 06/11/16 16:00 99.0 97 19 113/55 93 Nasal Cannula 2.0 06/11/16 16:00 94 06/11/16 15:00 92 20 119/84 93 Nasal Cannula 2.0 06/11/16 14:00 91 20 106/58 97 Nasal Cannula 2.0 06/11/16 13:00 90 19 105/56 97 Nasal Cannula 2.0 06/11/16 12:00 99.5 88 20 104/55 96 Nasal Cannula 2.0 06/11/16 12:00 90 Height (Feet): 5 Height (Inches): 11.00 Weight (Pounds): 165 HEENT: other - more alert Respiratory/Chest: lungs clear Cardiovascular: normal rate, regular rhythm, no gallop/murmur Abdomen: soft, non tender Extremities: other - + edema, cyanosis bilaterally Microbiology Date/Time Source Procedure Growth Status 06/10/16 21:15 Blood Blood Culture - Preliminary Gram Positive Cocci Resulted 06/10/16 12:30 Urine,Clean Catch Urine Culture - Preliminary Yeast Species Resulted Laboratory Tests Test 06/12/16 03:35 White Blood Count 10.6 K/UL (4.8-10.8) Red Blood Count 3.30 M/UL (4.70-6.10) L Hemoglobin 8.3 G/DL (14.2-18.0) L Hematocrit 26.8 % (42.0-52.0) L Mean Corpuscular Volume 81 FL (80-99) Mean Corpuscular Hemoglobin 25.2 PG (27.0-31.0) L Mean Corpuscular Hemoglobin Concent 31.0 G/DL (32.0-36.0) L Red Cell Distribution Width 18.1 % (11.6-14.8) H Platelet Count 66 K/UL (150-450) L Mean Platelet Volume 11.7 FL (6.5-10.1) H Neutrophils (%) (Auto) % (45.0-75.0) Lymphocytes (%) (Auto) % (20.0-45.0) Monocytes (%) (Auto) % (1.0-10.0) Eosinophils (%) (Auto) % (0.0-3.0) Basophils (%) (Auto) % (0.0-2.0) Differential Total Cells Counted 100 Neutrophils % (Manual) 80 % (45-75) H Lymphocytes % (Manual) 13 % (20-45) L Monocytes % (Manual) 4 % (1-10) Eosinophils % (Manual) 3 % (0-3) Basophils % (Manual) 0 % (0-2) Band Neutrophils 0 % (0-8) Platelet Estimate Decreased L Platelet Morphology Normal Hypochromasia 2+ Anisocytosis 2+ Sodium Level 155 mEQ/L (135-145) H Potassium Level 3.2 mEQ/L (3.4-4.9) L Chloride Level 111 mEQ/L (98-107) H Carbon Dioxide Level 32 mEQ/L (20-30) H Anion Gap 12 (5-15) Blood Urea Nitrogen 33 mg/dL (7-23) H Creatinine 1.7 mg/dL (0.7-1.2) H Estimat Glomerular Filtration Rate 41.6 mL/min (>60) Glucose Level 137 mg/dL (74-106) H Calcium Level 8.3 mg/dL (8.6-10.2) L COLTON GONZALEZ Jun 12, 2016 11:24
--- NOTE | 2016-06-12 11:32 | General Progress Note ---
Assessment/Plan Problem List: (1) Acute renal failure ICD Codes: N17.9 - Acute kidney failure, unspecified SNOMED: 35293256 Qualifiers: Qualified Codes: N17.0 - Acute kidney failure with tubular necrosis (2) Encephalopathy ICD Codes: G93.40 - Encephalopathy, unspecified SNOMED: 79260330, 858890863 (3) DKA (diabetic ketoacidoses) ICD Codes: E13.10 - Other specified diabetes mellitus with ketoacidosis without coma SNOMED: 077955585, 23835315 Qualifiers: Qualified Codes: E13.11 - Other specified diabetes mellitus with ketoacidosis with coma (4) Leukocytosis ICD Codes: D72.829 - Elevated white blood cell count, unspecified SNOMED: 028159237, 394634450 Qualifiers: Qualified Codes: D72.829 - Elevated white blood cell count, unspecified (5) Altered level of consciousness ICD Codes: R40.4 - Transient alteration of awareness SNOMED: 9023441 Status: stable, progressing Assessment/Plan cont aggressive IVF insulin drip per endo IV abx per ID resp care/o2 ngt feeds no transfusion per family monitor h/h. ivc filter today per [facility] check echo vascular eval appreciated heme eval appecaited podiatry and plastic eval for ischemic feet/hand consult remain critical and guarded Subjective ROS Limited/Unobtainable: No Constitutional: Reports: malaise, weakness HEENT: Reports: no symptoms Cardiovascular: Reports: no symptoms Respiratory: Reports: no symptoms Gastrointestinal/Abdominal: Reports: no symptoms Genitourinary: Reports: no symptoms Neurologic/Psychiatric: Reports: pre-existing deficit Endocrine: Reports: no symptoms Hematologic/Lymphatic: Reports: no symptoms Allergies: Coded Allergies: No Known Allergies (Unverified , 05/30/16) All Systems: reviewed and negative except above Subjective remains on insulin drip- but less. o2 requirements. confused.uop improving. renal fxn better. now has ischemic right hand and bilteral foot/ toes. decreased h/h noted. pt is jehovah witness. d/w family aware of pts critical status. they declined transfusion due to samaritan reasons. labs and clinical status seem to be improving. Objective Last 24 Hour Vital Signs Date Time Temp Pulse Resp B/P Pulse Ox O2 Delivery O2 Flow Rate FiO2 06/12/16 11:00 96 21 122/67 98 Nasal Cannula 2.0 06/12/16 10:00 113 21 120/57 98 Nasal Cannula 2.0 06/12/16 09:32 114 115/68 06/12/16 09:00 113 20 115/68 96 Nasal Cannula 2.0 06/12/16 08:00 99.0 108 23 115/63 97 Nasal Cannula 2.0 06/12/16 08:00 108 06/12/16 07:00 101 22 114/60 96 Nasal Cannula 2.0 06/12/16 06:00 100 25 94/52 95 Nasal Cannula 2.0 06/12/16 05:00 100 25 112/62 96 Nasal Cannula 2.0 06/12/16 04:00 99.0 101 27 113/51 96 Nasal Cannula 2.0 06/12/16 04:00 97 06/12/16 03:00 102 26 116/62 94 Nasal Cannula 2.0 06/12/16 02:00 100 28 116/59 99 Nasal Cannula 2.0 06/12/16 01:00 99 21 116/59 99 Nasal Cannula 2.0 06/12/16 00:00 99.0 97 26 109/59 96 Nasal Cannula 2.0 06/11/16 23:14 93 06/11/16 23:00 97 22 121/51 96 Nasal Cannula 2.0 06/11/16 22:00 88 21 103/55 96 Nasal Cannula 2.0 06/11/16 21:00 103 19 118/61 95 Nasal Cannula 2.0 06/11/16 20:56 101 118/64 06/11/16 20:00 99 06/11/16 20:00 98.9 99 20 118/64 94 Nasal Cannula 2.0 06/11/16 19:45 Nasal Cannula 2.0 28 06/11/16 19:45 94 Nasal Cannula 2.0 28 06/11/16 19:00 104 20 115/61 94 Nasal Cannula 2.0 06/11/16 18:00 93 20 116/58 93 Nasal Cannula 2.0 06/11/16 17:00 99 20 119/57 93 Nasal Cannula 2.0 06/11/16 16:00 99.0 97 19 113/55 93 Nasal Cannula 2.0 06/11/16 16:00 94 06/11/16 15:00 92 20 119/84 93 Nasal Cannula 2.0 06/11/16 14:00 91 20 106/58 97 Nasal Cannula 2.0 06/11/16 13:00 90 19 105/56 97 Nasal Cannula 2.0 06/11/16 12:00 99.5 88 20 104/55 96 Nasal Cannula 2.0 06/11/16 12:00 90 Intake and Output 06/11/16 06/12/16 18:59 06:59 Intake Total 2287 ml 2617 ml Output Total 990 ml 1075 ml Balance 1297 ml 1542 ml Free Water 450 ml 450 ml IV Total 1597 ml 1847 ml Tube Feeding 240 ml 240 ml Other 80 ml Output Urine Total 990 ml 1075 ml # Bowel Movements 2 Laboratory Tests 06/12/16 03:35: White Blood Count 10.6, Red Blood Count 3.30L, Hemoglobin 8.3L, Hematocrit 26.8L , Mean Corpuscular Volume 81, Mean Corpuscular Hemoglobin 25.2L, Mean Corpuscular Hemoglobin Concent 31.0L, Red Cell Distribution Width 18.1H, Platelet Count 66L, Mean Platelet Volume 11.7H, Neutrophils (%) (Auto) , Lymphocytes (%) (Auto) , Monocytes (%) (Auto) , Eosinophils (%) (Auto) , Basophils (%) (Auto) , Differential Total Cells Counted 100, Neutrophils % ( Manual) 80H, Lymphocytes % (Manual) 13L, Monocytes % (Manual) 4, Eosinophils % ( Manual) 3, Basophils % (Manual) 0, Band Neutrophils 0, Platelet Estimate DecreasedL, Platelet Morphology Normal, Hypochromasia 2+, Anisocytosis 2+, Sodium Level 155H, Potassium Level 3.2L, Chloride Level 111H, Carbon Dioxide Level 32H, Anion Gap 12, Blood Urea Nitrogen 33H, Creatinine 1.7H, Estimat Glomerular Filtration Rate 41.6, Glucose Level 137H, Calcium Level 8.3L Height (Feet): 5 Height (Inches): 11.00 Weight (Pounds): 165 Objective eneral Appearance: WD/WN, alert, confused Neck: supple Cardiovascular: regular rhythm Respiratory/Chest: lungs clear Abdomen: normal bowel sounds, non tender, soft, no organomegaly, no mass Edema: mild edema Neurologic: alert Skin: cyanotic - right hand fingers. cyanotic toes/forefoot bilaterally. DARYN JEREZ Jun 12, 2016 11:32
[2016-06-12] MEDS ORDERED: KCl 10% 20 mEq/15ml liquid NG ONE (12:15)
[2016-06-12] MEDS: Fluconazole 100mg tab GT SCH (12:36)
[2016-06-12] MEDS ORDERED: Vancomycin 1gm in D5W 250ml IVPB ONE (13:00)
[2016-06-12] MEDS ORDERED: Heparin 2000 units/Ns 1000ml IV ONE (14:00)
[2016-06-12] MEDS ORDERED: Lidocaine 1% Plain 30 ml INJ ONE (14:00)
[2016-06-12] MEDS: CEFTAROLINE IVPB SCH (14:48)
[2016-06-12] MEDS: NS IVPB SCH (14:48)
[2016-06-12] MEDS ORDERED: Ceftaroline 400 MG in NS 55 ML IVPB SCH (15:00)
--- NOTE | 2016-06-12 15:38 | Nephrology Progress Note ---
Assessment/Plan Problem List: (1) Hypovolemic shock (2) Metabolic acidosis (3) Hypernatremia (4) Altered level of consciousness (5) Acute renal failure (6) Encephalopathy (7) Ischemia of digits of hand (8) Ischemia of extremity (9) Rhabdomyolysis Plan creatinine 1.4 04/2016 continue hydration, +bicarb,serial lytes, reduce iv rate , grave prognosis , severe rhabdo iv with bicarb, parish improving replace k Subjective ROS Limited/Unobtainable: Yes Objective Objective Last 24 Hour Vital Signs Date Time Temp Pulse Resp B/P Pulse Ox O2 Delivery O2 Flow Rate FiO2 06/12/16 14:24 97 18 2.0 06/12/16 14:00 89 20 120/58 100 Nasal Cannula 2.0 06/12/16 14:00 89 20 120/58 100 Nasal Cannula 2.0 06/12/16 13:45 95 20 126/71 98 Nasal Cannula 2.0 06/12/16 13:30 91 20 124/69 98 Nasal Cannula 2.0 06/12/16 13:15 91 20 124/69 98 Nasal Cannula 2.0 06/12/16 13:00 97 20 109/61 98 Nasal Cannula 2.0 06/12/16 12:00 95 06/12/16 12:00 97 20 116/59 98 Nasal Cannula 2.0 06/12/16 12:00 99.6 06/12/16 11:00 96 21 122/67 98 Nasal Cannula 2.0 06/12/16 10:00 113 21 120/57 98 Nasal Cannula 2.0 06/12/16 09:32 114 115/68 06/12/16 09:00 113 20 115/68 96 Nasal Cannula 2.0 06/12/16 08:00 99.0 108 23 115/63 97 Nasal Cannula 2.0 06/12/16 08:00 108 06/12/16 07:00 101 22 114/60 96 Nasal Cannula 2.0 06/12/16 06:00 100 25 94/52 95 Nasal Cannula 2.0 06/12/16 05:00 100 25 112/62 96 Nasal Cannula 2.0 06/12/16 04:00 99.0 101 27 113/51 96 Nasal Cannula 2.0 06/12/16 04:00 97 06/12/16 03:00 102 26 116/62 94 Nasal Cannula 2.0 06/12/16 02:00 100 28 116/59 99 Nasal Cannula 2.0 06/12/16 01:00 99 21 116/59 99 Nasal Cannula 2.0 06/12/16 00:00 99.0 97 26 109/59 96 Nasal Cannula 2.0 06/11/16 23:14 93 06/11/16 23:00 97 22 121/51 96 Nasal Cannula 2.0 06/11/16 22:00 88 21 103/55 96 Nasal Cannula 2.0 06/11/16 21:00 103 19 118/61 95 Nasal Cannula 2.0 06/11/16 20:56 101 118/64 06/11/16 20:00 99 06/11/16 20:00 98.9 99 20 118/64 94 Nasal Cannula 2.0 06/11/16 19:45 Nasal Cannula 2.0 28 06/11/16 19:45 94 Nasal Cannula 2.0 28 06/11/16 19:00 104 20 115/61 94 Nasal Cannula 2.0 06/11/16 18:00 93 20 116/58 93 Nasal Cannula 2.0 06/11/16 17:00 99 20 119/57 93 Nasal Cannula 2.0 06/11/16 16:00 99.0 97 19 113/55 93 Nasal Cannula 2.0 06/11/16 16:00 94 Intake and Output 06/11/16 06/12/16 19:00 07:00 Intake Total 2261 ml 2617 ml Output Total 890 ml 1075 ml Balance 1371 ml 1542 ml Free Water 450 ml 450 ml IV Total 1571 ml 1847 ml Tube Feeding 240 ml 240 ml Other 80 ml Output Urine Total 890 ml 1075 ml # Bowel Movements 2 Laboratory Tests 06/12/16 03:35: White Blood Count 10.6, Red Blood Count 3.30L, Hemoglobin 8.3L, Hematocrit 26.8L , Mean Corpuscular Volume 81, Mean Corpuscular Hemoglobin 25.2L, Mean Corpuscular Hemoglobin Concent 31.0L, Red Cell Distribution Width 18.1H, Platelet Count 66L, Mean Platelet Volume 11.7H, Neutrophils (%) (Auto) , Lymphocytes (%) (Auto) , Monocytes (%) (Auto) , Eosinophils (%) (Auto) , Basophils (%) (Auto) , Differential Total Cells Counted 100, Neutrophils % ( Manual) 80H, Lymphocytes % (Manual) 13L, Monocytes % (Manual) 4, Eosinophils % ( Manual) 3, Basophils % (Manual) 0, Band Neutrophils 0, Platelet Estimate DecreasedL, Platelet Morphology Normal, Hypochromasia 2+, Anisocytosis 2+, Sodium Level 155H, Potassium Level 3.2L, Chloride Level 111H, Carbon Dioxide Level 32H, Anion Gap 12, Blood Urea Nitrogen 33H, Creatinine 1.7H, Estimat Glomerular Filtration Rate 41.6, Glucose Level 137H, Calcium Level 8.3L Height (Feet): 5 Height (Inches): 11.00 Weight (Pounds): 165 General Appearance: lethargic EENT: normal ENT inspection Neck: normal alignment Cardiovascular: normal rate Respiratory/Chest: lungs clear Abdomen: non tender Extremities: moderate edema, other - ischemia digits 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
--- NOTE | 2016-06-12 16:06 | Diagnostic Imaging Report ---
Indications: Bilateral lower extremity deep venous thrombosis; comorbidities precludes safe anticoagulation Technique: Procedure, indications, risks, alternatives were explained to the patient's family, who understands and gives written consent to proceed. Strict aseptic technique was utilized, including hand washing, use of hat and mask, use of sterile gown and gloves, sterile ultrasound gel and probe cover, prepping of right neck base skin with 2% chlorhexidine solution, and application of full body sterile barrier over this area. Skin and subcutaneous soft tissues were infiltrated with 1% lidocaine and sodium bicarbonate. A small dermatotomy was made, through which the right internal jugular vein was punctured percutaneously under direct sonographic guidance with a 19-gauge Seldinger needle. Exchange was made over a guidewire for a 5 Citizen [place] hook flush catheter. This was advanced through the superior vena cava and inferior vena cava into the left common iliac vein. Nonionic iodine contrast was injected and digital subtraction images of the inferior vena cava obtained. The percutaneous tract was dilated over a guidewire, then a 10 Citizen [place] introducer sheath advanced over the guidewire under direct fluoroscopic guidance into the infrarenal segment of the inferior vena cava. A Bard Page retrievable filter was deployed into and advanced through the sheath to its distal end, sheath withdrawn and filter deployed in the immediate infrarenal inferior vena cava. The sheath was carefully advanced adjacent to the filter, contrast injected and followup images obtained. The sheath was removed and right neck puncture site manually compressed to achieve hemostasis. The patient tolerated the procedures well without immediate complications and was returned to his room in stable condition. Total fluoroscopy time: 1.3 minutes. Dose-area product: 845 dGy-cm2 Findings: Comparison: None The bilateral common iliac veins and inferior vena cava are patent and normal in caliber without intraluminal filling defect. The right renal vein joins the inferior vena cava at the L1-2 level. The left renal vein joins the inferior vena cava at the L1-L2 level. Final images demonstrate successful deployment of filter in the inferior vena cava immediately below renal veins, well centered. Contrast flows freely through the filter. IMPRESSION: Inferior venacavogram within normal limits. Placement of filter in the infrarenal inferior vena cava. It is recommended that this filter be retrieved percutaneously as soon as possible once contraindication to theraputic anticoagulation has resolved.
--- NOTE | 2016-06-12 16:56 | General Progress Note ---
Assessment/Plan Assessment/Plan Assessment: 1. Bilateral DVTs of the lower extremities - is s/p ivc fitler (retrievable) given anemia and thrombocytopenia 2. Anemia 2/2 chronic disease - patient is JW, refusing blood transfusions, is on epogen and iron 3. Leukocytosis potentially 2/2 infection 4. Thrombocytopenia - likely 2/2 infection and consumptove state, peripheral smear pending. Hepatitis panel negative 5. Toe ischemia and microvascular ischemia 6. ARF due to severe rhabdo 7. Dehydration 8. Shock 9. DKA Recommendations: - s/p ivc filter - Continue epogen - Continue IV iron - Refusing blood products - Hgb goal >7 - Plt goal >10k - DIC panel reviewed - Abx to continue per ID - DW Staff Sincerely, Dario Henderson MD Subjective Constitutional: Reports: no symptoms HEENT: Reports: no symptoms Cardiovascular: Reports: no symptoms Respiratory: Reports: no symptoms Gastrointestinal/Abdominal: Reports: no symptoms Genitourinary: Reports: no symptoms Neurologic/Psychiatric: Reports: no symptoms Endocrine: Reports: no symptoms Hematologic/Lymphatic: Reports: anemia Allergies: Coded Allergies: No Known Allergies (Unverified , 05/30/16) Subjective stable, no events overnight, now s/p ivc filter Objective Last 24 Hour Vital Signs Date Time Temp Pulse Resp B/P Pulse Ox O2 Delivery O2 Flow Rate FiO2 06/12/16 16:00 99 06/12/16 16:00 100.1 99 21 113/69 100 Nasal Cannula 2.0 06/12/16 15:30 93 24 120/64 96 Nasal Cannula 2.0 06/12/16 15:15 91 24 109/65 96 Nasal Cannula 2.0 06/12/16 15:00 91 24 121/64 98 Nasal Cannula 2.0 06/12/16 14:45 89 22 109/66 100 Nasal Cannula 2.0 06/12/16 14:24 97 18 2.0 06/12/16 14:00 89 20 120/58 100 Nasal Cannula 2.0 06/12/16 14:00 89 20 120/58 100 Nasal Cannula 2.0 06/12/16 13:45 95 20 126/71 98 Nasal Cannula 2.0 06/12/16 13:30 91 20 124/69 98 Nasal Cannula 2.0 06/12/16 13:15 91 20 124/69 98 Nasal Cannula 2.0 06/12/16 13:00 97 20 109/61 98 Nasal Cannula 2.0 06/12/16 12:00 95 06/12/16 12:00 97 20 116/59 98 Nasal Cannula 2.0 06/12/16 12:00 99.6 06/12/16 11:00 96 21 122/67 98 Nasal Cannula 2.0 06/12/16 10:00 113 21 120/57 98 Nasal Cannula 2.0 06/12/16 09:32 114 115/68 06/12/16 09:00 113 20 115/68 96 Nasal Cannula 2.0 06/12/16 08:00 99.0 108 23 115/63 97 Nasal Cannula 2.0 06/12/16 08:00 108 06/12/16 07:00 101 22 114/60 96 Nasal Cannula 2.0 06/12/16 06:00 100 25 94/52 95 Nasal Cannula 2.0 06/12/16 05:00 100 25 112/62 96 Nasal Cannula 2.0 06/12/16 04:00 99.0 101 27 113/51 96 Nasal Cannula 2.0 06/12/16 04:00 97 06/12/16 03:00 102 26 116/62 94 Nasal Cannula 2.0 06/12/16 02:00 100 28 116/59 99 Nasal Cannula 2.0 06/12/16 01:00 99 21 116/59 99 Nasal Cannula 2.0 06/12/16 00:00 99.0 97 26 109/59 96 Nasal Cannula 2.0 06/11/16 23:14 93 06/11/16 23:00 97 22 121/51 96 Nasal Cannula 2.0 06/11/16 22:00 88 21 103/55 96 Nasal Cannula 2.0 06/11/16 21:00 103 19 118/61 95 Nasal Cannula 2.0 06/11/16 20:56 101 118/64 06/11/16 20:00 99 06/11/16 20:00 98.9 99 20 118/64 94 Nasal Cannula 2.0 06/11/16 19:45 Nasal Cannula 2.0 28 06/11/16 19:45 94 Nasal Cannula 2.0 28 06/11/16 19:00 104 20 115/61 94 Nasal Cannula 2.0 06/11/16 18:00 93 20 116/58 93 Nasal Cannula 2.0 06/11/16 17:00 99 20 119/57 93 Nasal Cannula 2.0 Intake and Output 06/11/16 06/12/16 19:00 07:00 Intake Total 2261 ml 2617 ml Output Total 890 ml 1075 ml Balance 1371 ml 1542 ml Free Water 450 ml 450 ml IV Total 1571 ml 1847 ml Tube Feeding 240 ml 240 ml Other 80 ml Output Urine Total 890 ml 1075 ml # Bowel Movements 2 Laboratory Tests 06/12/16 03:35: White Blood Count 10.6, Red Blood Count 3.30L, Hemoglobin 8.3L, Hematocrit 26.8L , Mean Corpuscular Volume 81, Mean Corpuscular Hemoglobin 25.2L, Mean Corpuscular Hemoglobin Concent 31.0L, Red Cell Distribution Width 18.1H, Platelet Count 66L, Mean Platelet Volume 11.7H, Neutrophils (%) (Auto) , Lymphocytes (%) (Auto) , Monocytes (%) (Auto) , Eosinophils (%) (Auto) , Basophils (%) (Auto) , Differential Total Cells Counted 100, Neutrophils % ( Manual) 80H, Lymphocytes % (Manual) 13L, Monocytes % (Manual) 4, Eosinophils % ( Manual) 3, Basophils % (Manual) 0, Band Neutrophils 0, Platelet Estimate DecreasedL, Platelet Morphology Normal, Hypochromasia 2+, Anisocytosis 2+, Sodium Level 155H, Potassium Level 3.2L, Chloride Level 111H, Carbon Dioxide Level 32H, Anion Gap 12, Blood Urea Nitrogen 33H, Creatinine 1.7H, Estimat Glomerular Filtration Rate 41.6, Glucose Level 137H, Calcium Level 8.3L Height (Feet): 5 Height (Inches): 11.00 Weight (Pounds): 165 General Appearance: alert EENT: normal ENT inspection Neck: supple Cardiovascular: regular rhythm Respiratory/Chest: lungs clear Abdomen: soft Pelvis: no masses Extremities: non-tender Edema: 1+ Leg (L), 1+ Leg (R) Edema: mild edema Neurologic: alert Skin: warm/dry Dario Henderson Jun 12, 2016 16:55
[2016-06-12] MEDS: Acetaminophen 650mg/20.3ml NG PRN ×2 (17:22→23:41)
[2016-06-12] MEDS: KCl 10% 40mEq/30ml liquid NG SCH (17:30)
[2016-06-12] MEDS ORDERED: Epogen (for non ESRD use) SUBQ SCH (21:00)
[2016-06-12] MEDS ORDERED: Iron Sucrose 100 MG in NS 110 ML IVPB SCH (21:00)
[2016-06-13] VITALS (17 sets, daily range): BP systolic 108–127; BP diastolic 6–80
[2016-06-13] MEDS: Insulin Rate Change 1 Each MISC PRN ×4 (00:02→08:31)
--- NOTE | 2016-06-13 01:47 | Progress Note ---
DATE: 06/12/2016 CARDIOLOGY PROGRESS NOTE: SUBJECTIVE: The patient's condition remains critical. Prognosis guarded. He remains in the intensive care unit. He remains on IV fluids and insulin drip. He is a Faith and no blood products are requested. The patient replaced today . OBJECTIVE: VITAL SIGNS: Blood pressure 112/61, pulse 109, respiratory 25, afebrile, and monitor sinus tachycardia. LUNGS: Bilateral breath sounds. HEART: Regular rhythm and rate. Normal S1, S2. ABDOMEN: Soft. EXTREMITIES: No edema. Ischemic digits as well hands are dry. LABORATORY DATA: White count is 10.6 and hemoglobin 8.3. BUN 33, creatinine 1.7, sodium 155, potassium 3.2, bicarb 32, and glucose 137. IMPRESSION: 1. Diabetic ketoacidosis. 2. Sepsis shock. 3. Ischemic digit/gangrene. 4. Dehydration. 5. Hypernatremia. 6. Hypokalemia. 7. Hyperchloremia. 8. Acute renal failure. 9. Metabolic acidosis . 10. Encephalopathy toxic and metabolic etiology. PLAN OF CARE: Continue hypotonic fluids. Bicarb support. Taper insulin drip. Skin care. No role for revascularization. Amputations to be considered in the future. Pain control. Anti-platelet and anti-lipid therapy as tolerated once metabolic parameters stabilized. Morales Serrano M.D. DR: Jose Antonio JOB#: [id number] CC:
[2016-06-13] MEDS: NS IVPB SCH (02:13)
[2016-06-13] MEDS: CEFTAROLINE IVPB SCH (02:13)
--- NOTE | 2016-06-13 03:27 | Consultation ---
DATE OF CONSULTATION: 06/11/2016 CONSULTING SPECIALITY: Podiatry. CONSULTING PHYSICIAN: Lang Klein D.P.M. Covering for Silvino Blas D.P.M. REASON FOR CONSULTATION: Acute peripheral ischemia. HISTORY OF PRESENT ILLNESS: This patient is unable to communicate effectively. Therefore, history was obtained from reviewing the chart. The patient is a 56-year-old male, who was brought to the emergency room from [facility] facility secondary to uncontrolled diabetes. In the emergency room, he was noted to be hypoxic along with DKA and sepsis. Vascular surgery is following the patient. PAST MEDICAL HISTORY: Posttraumatic encephalopathy, renal failure, seizure disorder, hypertension, diabetes, and bilateral DVT. PAST SURGICAL HISTORY: Unobtainable. MEDICATIONS: The patient was started on an insulin drip as well as vancomycin and Zosyn. ALLERGIES: None known. SOCIAL HISTORY: Unobtainable. FAMILY HISTORY: Unobtainable. PHYSICAL EXAMINATION: GENERAL: The patient is lying in bed and is not alert or oriented. DERMATOLOGICAL: Bilateral foot with cyanotic appearing toes. Left foot is worse than the right and is at the level of the metatarsal head. The right foot cyanotic changes are isolated to toes, 1 through 4. Foot is warm to touch. VASCULAR: Feet are warm. Pulses are lightly palpable. Bilateral foot with mild nonpitting edema. NEUROLOGICAL: The patient reacts to sharp stimulus. MUSCULOSKELETAL: Unable to assess muscle strength. LABORATORY DATA: On 06/11/2016, his white blood count of 10.8, red blood count of 3.08, hemoglobin 7.7, hematocrit 24.7, platelets 52,000, and neutrophils 83%. ESR 93. CRP 14. Sodium 158, potassium 3.1, chloride 113, CO2 of 21, BUN of 24, creatinine of 2.5, and glucose of 198. D-dimer of 8901. Cultures, MRSA nares, VRE rectum, gram positive cocci in blood, and yeast in urine. ASSESSMENT: 1. Acute ischemia of bilateral toes, left worse than right 2. Traumatic encephalopathy. 3. Renal failure. 4. Diabetic ketoacidosis. 5. Sepsis. 6. Diabetes. 7. Bilateral deep venous thrombosis. 8. Hypertension. 9. Seizure disorder. PLAN: 1. We will begin watchful waiting for demarcation of bilateral foot gangrene. 2. Keep feet warm and monitor daily for possible transformation of the wet gangrene or open ulceration. 3. Offload heels. Thank you for the consultation. Lang Klein DPM DR: Elijah JOB#: [id number] CC: ESME
[2016-06-13 04:57] LABS: MEAN CORPUSCULAR HEMOGLOBIN 25.3 PG (27.0-31.0); MEAN CORPUSCULAR HGB CONC 31.1 G/DL (32.0-36.0); MEAN CORPUSCULAR VOLUME 81 FL (80-99); MEAN PLATELET VOLUME 12.3 FL (6.5-10.1); PLATELET COUNT 98 K/UL (150-450); RED BLOOD COUNT 3.06 M/UL (4.70-6.10); RED CELL DISTRIBUTION WIDTH 18.6 % (11.6-14.8); WHITE BLOOD COUNT 8.3 K/UL (4.8-10.8)
[2016-06-13 05:23] LABS: ALBUMIN/GLOBULIN RATIO 0.5 (1.0-2.7); CALCIUM 7.9 mg/dL (8.6-10.2); CREATININE 1.4 mg/dL (0.7-1.2); GLOMERULAR FILTRATION RATE 52.1 mL/min (>60); POTASSIUM 3.7 mEQ/L (3.4-4.9); TOTAL PROTEIN 5.8 g/dL (6.6-8.7)
--- NOTE | 2016-06-13 05:55 | General Progress Note ---
Assessment/Plan Problem List: (1) Acute renal failure ICD Codes: N17.9 - Acute kidney failure, unspecified SNOMED: 34757067 Qualifiers: Qualified Codes: N17.0 - Acute kidney failure with tubular necrosis (2) Encephalopathy ICD Codes: G93.40 - Encephalopathy, unspecified SNOMED: 04050715, 362118586 (3) DKA (diabetic ketoacidoses) ICD Codes: E13.10 - Other specified diabetes mellitus with ketoacidosis without coma SNOMED: 123637092, 20254601 Qualifiers: Qualified Codes: E13.11 - Other specified diabetes mellitus with ketoacidosis with coma (4) Leukocytosis ICD Codes: D72.829 - Elevated white blood cell count, unspecified SNOMED: 992603126, 808781078 Qualifiers: Qualified Codes: D72.829 - Elevated white blood cell count, unspecified (5) Altered level of consciousness ICD Codes: R40.4 - Transient alteration of awareness SNOMED: 2461550 Status: stable, progressing Assessment/Plan cont aggressive IVF insulin drip per endo IV abx per ID resp care/o2 ngt feeds no transfusion per family monitor h/h. high dose epo and iron infusion check echo check mg level remain critical and guarded Subjective ROS Limited/Unobtainable: Yes Constitutional: Reports: malaise, weakness HEENT: Reports: no symptoms Cardiovascular: Reports: no symptoms Respiratory: Reports: no symptoms Gastrointestinal/Abdominal: Reports: difficulty swallowing Genitourinary: Reports: no symptoms Neurologic/Psychiatric: Reports: pre-existing deficit Endocrine: Reports: no symptoms Hematologic/Lymphatic: Reports: no symptoms Allergies: Coded Allergies: No Known Allergies (Unverified , 05/30/16) All Systems: reviewed and negative except above Subjective remains on insulin drip- but less. o2 requirements. confused.uop improving. renal fxn better. stable ischemic right hand and bilteral foot/toes. decreased h/h noted. pt is jehovah witness. d/w family aware of pts critical status. they declined transfusion due to roman catholic reasons. labs and clinical status seem to be improving. more alert. follows commands. had NSVT this am. s/ p ivc filter Objective Last 24 Hour Vital Signs Date Time Temp Pulse Resp B/P Pulse Ox O2 Delivery O2 Flow Rate FiO2 06/13/16 04:00 80 18 121/64 100 Nasal Cannula 2.0 06/13/16 03:00 88 18 110/71 100 Nasal Cannula 2.0 06/13/16 02:00 104 18 111/76 100 Nasal Cannula 2.0 06/13/16 01:00 102 18 118/68 100 Nasal Cannula 2.0 06/13/16 00:45 101.4 06/13/16 00:00 100.8 100 18 127/64 97 Nasal Cannula 2.0 06/13/16 00:00 102 06/12/16 23:01 98 18 118/77 100 Nasal Cannula 2.0 06/12/16 22:00 98 20 126/62 100 Nasal Cannula 2.0 06/12/16 21:00 92 25 125/68 100 Nasal Cannula 2.0 06/12/16 20:44 101 120/54 06/12/16 20:02 109 06/12/16 20:00 97.8 109 25 112/61 100 Nasal Cannula 2.0 06/12/16 19:05 100 Nasal Cannula 2.0 28 06/12/16 19:05 Nasal Cannula 2.0 28 06/12/16 19:00 111 17 120/65 100 Nasal Cannula 2.0 06/12/16 18:01 110 14 122/67 100 Nasal Cannula 2.0 06/12/16 17:30 106 15 126/69 100 Nasal Cannula 2.0 06/12/16 17:00 105 18 117/65 100 Nasal Cannula 2.0 06/12/16 16:30 101 24 122/61 100 Nasal Cannula 2.0 06/12/16 16:00 99 06/12/16 16:00 100.1 99 21 113/69 100 Nasal Cannula 2.0 06/12/16 15:30 93 24 120/64 96 Nasal Cannula 2.0 06/12/16 15:15 91 24 109/65 96 Nasal Cannula 2.0 06/12/16 15:00 91 24 121/64 98 Nasal Cannula 2.0 06/12/16 14:45 89 22 109/66 100 Nasal Cannula 2.0 06/12/16 14:24 97 18 2.0 06/12/16 14:00 89 20 120/58 100 Nasal Cannula 2.0 06/12/16 14:00 89 20 120/58 100 Nasal Cannula 2.0 06/12/16 13:45 95 20 126/71 98 Nasal Cannula 2.0 06/12/16 13:30 91 20 124/69 98 Nasal Cannula 2.0 06/12/16 13:15 91 20 124/69 98 Nasal Cannula 2.0 06/12/16 13:00 97 20 109/61 98 Nasal Cannula 2.0 06/12/16 12:00 95 06/12/16 12:00 97 20 116/59 98 Nasal Cannula 2.0 06/12/16 12:00 99.6 06/12/16 11:00 96 21 122/67 98 Nasal Cannula 2.0 06/12/16 10:00 113 21 120/57 98 Nasal Cannula 2.0 06/12/16 09:32 114 115/68 06/12/16 09:00 113 20 115/68 96 Nasal Cannula 2.0 06/12/16 08:00 99.0 108 23 115/63 97 Nasal Cannula 2.0 06/12/16 08:00 108 06/12/16 07:00 101 22 114/60 96 Nasal Cannula 2.0 06/12/16 06:00 100 25 94/52 95 Nasal Cannula 2.0 Intake and Output 06/12/16 06/13/16 19:00 07:00 Intake Total 2046.6 ml 923 ml Output Total 1740 ml 1225 ml Balance 306.6 ml -302 ml Free Water 250 ml 150 ml IV Total 1536.6 ml 573 ml Tube Feeding 200 ml 140 ml Other 60 ml 60 ml Output Urine Total 1740 ml 1225 ml # Bowel Movements 2 1 Laboratory Tests 06/13/16 03:45: White Blood Count 8.3, Red Blood Count 3.06L, Hemoglobin 7.7L, Hematocrit 24.8L , Mean Corpuscular Volume 81, Mean Corpuscular Hemoglobin 25.3L, Mean Corpuscular Hemoglobin Concent 31.1L, Red Cell Distribution Width 18.6H, Platelet Count 98L, Mean Platelet Volume 12.3H, Neutrophils (%) (Auto) , Lymphocytes (%) (Auto) , Monocytes (%) (Auto) , Eosinophils (%) (Auto) , Basophils (%) (Auto) , Neutrophils % (Manual) [Pending], Lymphocytes % (Manual) [Pending], Platelet Estimate [Pending], Platelet Morphology [Pending], Sodium Level 151H, Potassium Level 3.7, Chloride Level 110H, Carbon Dioxide Level 30, Anion Gap 11, Blood Urea Nitrogen 21, Creatinine 1.4H, Estimat Glomerular Filtration Rate 52.1, Glucose Level 164H, Calcium Level 7.9L, Total Bilirubin 0.6, Aspartate Amino Transf (AST/SGOT) 152H, Alanine Aminotransferase (ALT/SGPT ) 248H, Alkaline Phosphatase 127, Total Creatine Kinase 3520H, Total Protein 5.8L, Albumin 2.0L, Globulin 3.8, Albumin/Globulin Ratio 0.5L Height (Feet): 5 Height (Inches): 11.00 Weight (Pounds): 165 Objective eneral Appearance: WD/WN, alert, confused Neck: supple Cardiovascular: regular rhythm Respiratory/Chest: lungs clear Abdomen: normal bowel sounds, non tender, soft, no organomegaly, no mass Edema: mild edema Neurologic: alert Skin: cyanotic - right hand fingers. cyanotic toes/forefoot bilaterally. DARYN JEREZ Jun 13, 2016 05:55
[2016-06-13] MEDS: D5W IV SCH (07:40)
[2016-06-13] MEDS: SODIUM BICARBONATE IV SCH ×2 (07:40→17:35)
[2016-06-13] MEDS: POTASSIUM CHLORIDE IV SCH ×2 (07:40→17:35)
[2016-06-13] MEDS: KCl 10% 40mEq/30ml liquid NG SCH ×2 (08:28→21:19)
[2016-06-13] MEDS: Metoprolol 50mg tab ORAL SCH ×2 (08:28→21:19)
[2016-06-13] MEDS: Docusate 100mg tablet NG SCH ×2 (08:28→19:17)
[2016-06-13] MEDS: Fluconazole 100mg tab GT SCH (08:28)
[2016-06-13] MEDS: Levemir Flexpen SUBQ SCH ×2 (08:29→21:32)
[2016-06-13 09:42] LABS: BAND NEUTROPHILS % (MANUAL) 1 % (0-8); BASOPHILS % (MANUAL) 0 % (0-2); EOSINOPHILS % (MANUAL) 1 % (0-3); LYMPHOCYTES % (MANUAL) 12 % (20-45); NEUTROPHILS % (MANUAL) 82 % (45-75); PLATELET ESTIMATE DECREASED; TOTAL CELLS COUNTED 100
[2016-06-13 09:43] LABS: ANISOCYTOSIS 1+; HYPOCHROMASIA 1+; PLATELET MORPHOLOGY NORMAL; POLYCHROMASIA 1+
--- NOTE | 2016-06-13 11:22 | Infectious Diseases Prog Note ---
"Assessment/Plan Assessment/Plan antibiotics : ceftaroline, fluconazole A 1. leucocytosis improving 2. renal failure improving 3. nasal MRSA colonization 4. increased LFT 5. thrombocytopenia 6. DKA 7. fungal UTI 8. MRSA | coag neg staph sepsis 9. cyanotic toes and right fingers P 1. cotninue ceftaroline, fluconazole 2. will follow up cultures Subjective ROS Limited/Unobtainable: Yes Allergies: Coded Allergies: No Known Allergies (Unverified , 05/30/16) Objective Vital Signs Last 24 Hour Vital Signs Date Time Temp Pulse Resp B/P Pulse Ox O2 Delivery O2 Flow Rate FiO2 06/13/16 11:00 83 22 108/60 99 Nasal Cannula 2.0 06/13/16 10:00 87 15 117/75 100 Nasal Cannula 2.0 06/13/16 09:00 88 17 125/75 100 Nasal Cannula 2.0 06/13/16 08:28 98 122/69 06/13/16 08:00 96 06/13/16 08:00 100.3 95 15 122/69 100 Nasal Cannula 2.0 06/13/16 07:00 93 18 119/74 100 Nasal Cannula 2.0 06/13/16 06:00 89 18 124/71 100 Nasal Cannula 2.0 06/13/16 05:00 88 18 114/70 100 Nasal Cannula 2.0 06/13/16 04:00 80 18 121/64 100 Nasal Cannula 2.0 06/13/16 04:00 85 06/13/16 03:00 88 18 110/71 100 Nasal Cannula 2.0 06/13/16 02:00 104 18 111/76 100 Nasal Cannula 2.0 06/13/16 01:00 102 18 118/68 100 Nasal Cannula 2.0 06/13/16 00:45 101.4 06/13/16 00:00 100.8 100 18 127/64 97 Nasal Cannula 2.0 06/13/16 00:00 102 06/12/16 23:01 98 18 118/77 100 Nasal Cannula 2.0 06/12/16 22:00 98 20 126/62 100 Nasal Cannula 2.0 06/12/16 21:00 92 25 125/68 100 Nasal Cannula 2.0 06/12/16 20:44 101 120/54 06/12/16 20:02 109 06/12/16 20:00 97.8 109 25 112/61 100 Nasal Cannula 2.0 06/12/16 19:05 100 Nasal Cannula 2.0 28 06/12/16 19:05 Nasal Cannula 2.0 28 06/12/16 19:00 111 17 120/65 100 Nasal Cannula 2.0 06/12/16 18:01 110 14 122/67 100 Nasal Cannula 2.0 06/12/16 17:30 106 15 126/69 100 Nasal Cannula 2.0 06/12/16 17:00 105 18 117/65 100 Nasal Cannula 2.0 06/12/16 16:30 101 24 122/61 100 Nasal Cannula 2.0 06/12/16 16:00 99 06/12/16 16:00 100.1 99 21 113/69 100 Nasal Cannula 2.0 06/12/16 15:30 93 24 120/64 96 Nasal Cannula 2.0 06/12/16 15:15 91 24 109/65 96 Nasal Cannula 2.0 06/12/16 15:00 91 24 121/64 98 Nasal Cannula 2.0 06/12/16 14:45 89 22 109/66 100 Nasal Cannula 2.0 06/12/16 14:24 97 18 2.0 06/12/16 14:00 89 20 120/58 100 Nasal Cannula 2.0 06/12/16 14:00 89 20 120/58 100 Nasal Cannula 2.0 06/12/16 13:45 95 20 126/71 98 Nasal Cannula 2.0 06/12/16 13:30 91 20 124/69 98 Nasal Cannula 2.0 06/12/16 13:15 91 20 124/69 98 Nasal Cannula 2.0 06/12/16 13:00 97 20 109/61 98 Nasal Cannula 2.0 06/12/16 12:00 95 06/12/16 12:00 97 20 116/59 98 Nasal Cannula 2.0 06/12/16 12:00 99.6 Height (Feet): 5 Height (Inches): 11.00 Weight (Pounds): 165 Respiratory/Chest: lungs clear Cardiovascular: normal rate, regular rhythm, no gallop/murmur Abdomen: soft, non tender Extremities: other - + edema, cyanosis of right and left toes, right fingers cyanotic Microbiology Date/Time Source Procedure Growth Status 06/10/16 21:15 Blood Blood Culture - Preliminary Staphylococcus Aureus - Mrsa Staphylococcus Sp Coag Neg Resulted 06/10/16 12:30 Urine,Clean Catch Urine Culture - Final Eboni Albicans Complete Laboratory Tests Test 06/12/16 21:00 06/13/16 03:45 Stool Occult Blood Pending White Blood Count 8.3 K/UL (4.8-10.8) Red Blood Count 3.06 M/UL (4.70-6.10) L Hemoglobin 7.7 G/DL (14.2-18.0) L Hematocrit 24.8 % (42.0-52.0) L Mean Corpuscular Volume 81 FL (80-99) Mean Corpuscular Hemoglobin 25.3 PG (27.0-31.0) L Mean Corpuscular Hemoglobin Concent 31.1 G/DL (32.0-36.0) L Red Cell Distribution Width 18.6 % (11.6-14.8) H Platelet Count 98 K/UL (150-450) L Mean Platelet Volume 12.3 FL (6.5-10.1) H Neutrophils (%) (Auto) % (45.0-75.0) Lymphocytes (%) (Auto) % (20.0-45.0) Monocytes (%) (Auto) % (1.0-10.0) Eosinophils (%) (Auto) % (0.0-3.0) Basophils (%) (Auto) % (0.0-2.0) Differential Total Cells Counted 100 Neutrophils % (Manual) 82 % (45-75) H Lymphocytes % (Manual) 12 % (20-45) L Monocytes % (Manual) 4 % (1-10) Eosinophils % (Manual) 1 % (0-3) Basophils % (Manual) 0 % (0-2) Band Neutrophils 1 % (0-8) Platelet Estimate Decreased L Platelet Morphology Normal Polychromasia 1+ Hypochromasia 1+ Anisocytosis 1+ Sodium Level 151 mEQ/L (135-145) H Potassium Level 3.7 mEQ/L (3.4-4.9) Chloride Level 110 mEQ/L (98-107) H Carbon Dioxide Level 30 mEQ/L (20-30) Anion Gap 11 (5-15) Blood Urea Nitrogen 21 mg/dL (7-23) Creatinine 1.4 mg/dL (0.7-1.2) H Estimat Glomerular Filtration Rate 52.1 mL/min (>60) Glucose Level 164 mg/dL (74-106) H Calcium Level 7.9 mg/dL (8.6-10.2) L Magnesium Level 1.7 mg/dL (1.7-2.5) Total Bilirubin 0.6 mg/dL (0.0-1.2) Aspartate Amino Transf (AST/SGOT) 152 U/L (5-40) H Alanine Aminotransferase (ALT/SGPT) 248 U/L (3-41) H Alkaline Phosphatase 127 U/L (40-129) Total Creatine Kinase 3520 U/L (38-174) H Total Protein 5.8 g/dL (6.6-8.7) L Albumin 2.0 g/dL (3.5-5.2) L Globulin 3.8 g/dL Albumin/Globulin Ratio 0.5 (1.0-2.7) L COLTON GONZALEZ Jun 13, 2016 11:22"
[2016-06-13] MEDS ORDERED: SODIUM BICARBONATE IV SCH (12:00)
[2016-06-13] MEDS ORDERED: NS IV SCH ×3 (12:00→18:00)
[2016-06-13] MEDS ORDERED: NovoLOG Insulin Flexpen SUBQ SCH ×2 (12:00)
[2016-06-13] MEDS ORDERED: POTASSIUM CHLORIDE IV SCH (12:00)
--- NOTE | 2016-06-13 13:27 | Nephrology Progress Note ---
Assessment/Plan Problem List: (1) Hypovolemic shock (2) Metabolic acidosis (3) Hypernatremia (4) Altered level of consciousness (5) Acute renal failure (6) Encephalopathy (7) Ischemia of digits of hand (8) Ischemia of extremity (9) Rhabdomyolysis Plan creatinine 1.4 04/2016 continue hydration, +bicarb,serial lytes, reduce iv rate , grave prognosis , severe rhabdo iv with bicarb, parish improving replace k, iv adjusted Subjective ROS Limited/Unobtainable: Yes Objective Objective Last 24 Hour Vital Signs Date Time Temp Pulse Resp B/P Pulse Ox O2 Delivery O2 Flow Rate FiO2 06/13/16 13:00 85 20 116/6 100 Nasal Cannula 2.0 06/13/16 12:10 82 06/13/16 12:00 99.2 82 20 123/73 100 Nasal Cannula 2.0 06/13/16 11:00 83 22 108/60 99 Nasal Cannula 2.0 06/13/16 10:00 87 15 117/75 100 Nasal Cannula 2.0 06/13/16 09:00 88 17 125/75 100 Nasal Cannula 2.0 06/13/16 08:28 98 122/69 06/13/16 08:00 96 06/13/16 08:00 100.3 95 15 122/69 100 Nasal Cannula 2.0 06/13/16 07:00 93 18 119/74 100 Nasal Cannula 2.0 06/13/16 06:00 89 18 124/71 100 Nasal Cannula 2.0 06/13/16 05:00 88 18 114/70 100 Nasal Cannula 2.0 06/13/16 04:00 80 18 121/64 100 Nasal Cannula 2.0 06/13/16 04:00 85 06/13/16 03:00 88 18 110/71 100 Nasal Cannula 2.0 06/13/16 02:00 104 18 111/76 100 Nasal Cannula 2.0 06/13/16 01:00 102 18 118/68 100 Nasal Cannula 2.0 06/13/16 00:45 101.4 06/13/16 00:00 100.8 100 18 127/64 97 Nasal Cannula 2.0 06/13/16 00:00 102 06/12/16 23:01 98 18 118/77 100 Nasal Cannula 2.0 06/12/16 22:00 98 20 126/62 100 Nasal Cannula 2.0 06/12/16 21:00 92 25 125/68 100 Nasal Cannula 2.0 06/12/16 20:44 101 120/54 06/12/16 20:02 109 06/12/16 20:00 97.8 109 25 112/61 100 Nasal Cannula 2.0 06/12/16 19:05 100 Nasal Cannula 2.0 28 06/12/16 19:05 Nasal Cannula 2.0 28 06/12/16 19:00 111 17 120/65 100 Nasal Cannula 2.0 06/12/16 18:01 110 14 122/67 100 Nasal Cannula 2.0 06/12/16 17:30 106 15 126/69 100 Nasal Cannula 2.0 06/12/16 17:00 105 18 117/65 100 Nasal Cannula 2.0 06/12/16 16:30 101 24 122/61 100 Nasal Cannula 2.0 06/12/16 16:00 99 06/12/16 16:00 100.1 99 21 113/69 100 Nasal Cannula 2.0 06/12/16 15:30 93 24 120/64 96 Nasal Cannula 2.0 06/12/16 15:15 91 24 109/65 96 Nasal Cannula 2.0 06/12/16 15:00 91 24 121/64 98 Nasal Cannula 2.0 06/12/16 14:45 89 22 109/66 100 Nasal Cannula 2.0 06/12/16 14:24 97 18 2.0 06/12/16 14:00 89 20 120/58 100 Nasal Cannula 2.0 06/12/16 14:00 89 20 120/58 100 Nasal Cannula 2.0 06/12/16 13:45 95 20 126/71 98 Nasal Cannula 2.0 06/12/16 13:30 91 20 124/69 98 Nasal Cannula 2.0 Intake and Output 06/12/16 06/13/16 18:59 06:59 Intake Total 2049.6 ml 2365.6 ml Output Total 1690 ml 1875 ml Balance 359.6 ml 490.6 ml Free Water 250 ml 150 ml IV Total 1539.6 ml 1915.6 ml Tube Feeding 200 ml 240 ml Other 60 ml 60 ml Output Urine Total 1690 ml 1875 ml # Bowel Movements 2 3 Laboratory Tests 06/12/16 21:00: Stool Occult Blood Negative 06/13/16 03:45: White Blood Count 8.3, Red Blood Count 3.06L, Hemoglobin 7.7L, Hematocrit 24.8L , Mean Corpuscular Volume 81, Mean Corpuscular Hemoglobin 25.3L, Mean Corpuscular Hemoglobin Concent 31.1L, Red Cell Distribution Width 18.6H, Platelet Count 98L, Mean Platelet Volume 12.3H, Neutrophils (%) (Auto) , Lymphocytes (%) (Auto) , Monocytes (%) (Auto) , Eosinophils (%) (Auto) , Basophils (%) (Auto) , Differential Total Cells Counted 100, Neutrophils % ( Manual) 82H, Lymphocytes % (Manual) 12L, Monocytes % (Manual) 4, Eosinophils % ( Manual) 1, Basophils % (Manual) 0, Band Neutrophils 1, Platelet Estimate DecreasedL, Platelet Morphology Normal, Polychromasia 1+, Hypochromasia 1+, Anisocytosis 1+, Sodium Level 151H, Potassium Level 3.7, Chloride Level 110H, Carbon Dioxide Level 30, Anion Gap 11, Blood Urea Nitrogen 21, Creatinine 1.4H, Estimat Glomerular Filtration Rate 52.1, Glucose Level 164H, Calcium Level 7.9L , Magnesium Level 1.7, Total Bilirubin 0.6, Aspartate Amino Transf (AST/SGOT) 152H, Alanine Aminotransferase (ALT/SGPT) 248H, Alkaline Phosphatase 127, Total Creatine Kinase 3520H, Total Protein 5.8L, Albumin 2.0L, Globulin 3.8, Albumin/ Globulin Ratio 0.5L Height (Feet): 5 Height (Inches): 11.00 Weight (Pounds): 165 General Appearance: confused EENT: normal ENT inspection Neck: normal alignment Cardiovascular: normal rate, regular rhythm Respiratory/Chest: lungs clear Abdomen: no organomegaly Extremities: moderate edema, other - ischemic digits Neurologic: motor weakness, unresponsive SHASTA REDDY Jun 13, 2016 13:27
[2016-06-13] MEDS ORDERED: KCl 10% 40mEq/30ml liquid NG SCH ×2 (14:00→21:00)
[2016-06-13] MEDS ORDERED: Sodium Bicarbonate 50 ML in 1/2 NS 1000ml 1,000 ML IV SCH ×4 (14:30)
[2016-06-13] MEDS ORDERED: Acetaminophen 650mg/20.3ml NG PRN (17:00)
[2016-06-13] MEDS: NS IV SCH ×2 (17:35→19:49)
[2016-06-13] MEDS: NovoLOG Insulin Flexpen SUBQ SCH ×4 (17:42→20:21)
[2016-06-13] MEDS ORDERED: CEFTAROLINE IV SCH ×2 (18:00)
[2016-06-13] MEDS: CEFTAROLINE IV SCH (19:49)
[2016-06-13] MEDS: Iron Sucrose 100 MG in NS 110 ML IVPB SCH (21:11)
--- NOTE | 2016-06-13 21:52 | General Progress Note ---
Assessment/Plan Assessment/Plan Assessment: 1. Bilateral DVTs of the lower extremities - is s/p ivc fitler (retrievable) given anemia and thrombocytopenia 2. Anemia 2/2 chronic disease - patient is JW, refusing blood transfusions, is on epogen and iron 3. Leukocytosis potentially 2/2 infection- improved 4. Thrombocytopenia - likely 2/2 infection and consumptive state, peripheral smear is normal. Hepatitis panel negative. has improved 5. Toe ischemia and microvascular ischemia 6. ARF due to severe rhabdo 7. Dehydration 8. Shock 9. DKA Recommendations: - Continue epogen - Continue IV iron - Refusing blood products - Hgb goal >7 - Plt goal >10k - DIC panel reviewed - Abx to continue per ID - DW Staff Sincerely, Dario Henderson MD Subjective Constitutional: Reports: no symptoms HEENT: Reports: no symptoms Cardiovascular: Reports: no symptoms Respiratory: Reports: no symptoms Gastrointestinal/Abdominal: Reports: no symptoms Neurologic/Psychiatric: Reports: no symptoms Endocrine: Reports: no symptoms Hematologic/Lymphatic: Reports: no symptoms Allergies: Coded Allergies: No Known Allergies (Unverified , 05/30/16) Subjective stable, no events overnight,no active bleeds Objective Last 24 Hour Vital Signs Date Time Temp Pulse Resp B/P Pulse Ox O2 Delivery O2 Flow Rate FiO2 06/13/16 21:19 109 123/80 06/13/16 20:00 98.4 109 21 123/80 95 Nasal Cannula 2.0 06/13/16 16:01 94 06/13/16 16:00 97.5 101 19 127/79 97 Nasal Cannula 2.0 06/13/16 15:44 Nasal Cannula 2.0 28 06/13/16 15:44 97 Nasal Cannula 2.0 28 06/13/16 14:00 88 20 111/65 100 Nasal Cannula 2.0 06/13/16 13:00 85 20 116/66 100 Nasal Cannula 2.0 06/13/16 12:10 82 06/13/16 12:00 99.2 82 20 123/73 100 Nasal Cannula 2.0 06/13/16 11:00 83 22 108/60 99 Nasal Cannula 2.0 06/13/16 10:00 87 15 117/75 100 Nasal Cannula 2.0 06/13/16 09:00 88 17 125/75 100 Nasal Cannula 2.0 06/13/16 08:28 98 122/69 06/13/16 08:00 96 06/13/16 08:00 100.3 95 15 122/69 100 Nasal Cannula 2.0 06/13/16 07:00 93 18 119/74 100 Nasal Cannula 2.0 06/13/16 06:00 89 18 124/71 100 Nasal Cannula 2.0 Intake and Output 06/13/16 06/13/16 11:00 23:00 Intake Total 1990.6 ml 1040 ml Output Total 1660 ml 375 ml Balance 330.6 ml 665 ml Free Water 50 ml 100 ml IV Total 1650.6 ml 710 ml Tube Feeding 240 ml 180 ml Other 50 ml 50 ml Output Urine Total 1660 ml 375 ml # Bowel Movements 2 Laboratory Tests 06/13/16 03:45: White Blood Count 8.3, Red Blood Count 3.06L, Hemoglobin 7.7L, Hematocrit 24.8L , Mean Corpuscular Volume 81, Mean Corpuscular Hemoglobin 25.3L, Mean Corpuscular Hemoglobin Concent 31.1L, Red Cell Distribution Width 18.6H, Platelet Count 98L, Mean Platelet Volume 12.3H, Neutrophils (%) (Auto) , Lymphocytes (%) (Auto) , Monocytes (%) (Auto) , Eosinophils (%) (Auto) , Basophils (%) (Auto) , Differential Total Cells Counted 100, Neutrophils % ( Manual) 82H, Lymphocytes % (Manual) 12L, Monocytes % (Manual) 4, Eosinophils % ( Manual) 1, Basophils % (Manual) 0, Band Neutrophils 1, Platelet Estimate DecreasedL, Platelet Morphology Normal, Polychromasia 1+, Hypochromasia 1+, Anisocytosis 1+, Sodium Level 151H, Potassium Level 3.7, Chloride Level 110H, Carbon Dioxide Level 30, Anion Gap 11, Blood Urea Nitrogen 21, Creatinine 1.4H, Estimat Glomerular Filtration Rate 52.1, Glucose Level 164H, Calcium Level 7.9L , Magnesium Level 1.7, Total Bilirubin 0.6, Aspartate Amino Transf (AST/SGOT) 152H, Alanine Aminotransferase (ALT/SGPT) 248H, Alkaline Phosphatase 127, Total Creatine Kinase 3520H, Total Protein 5.8L, Albumin 2.0L, Globulin 3.8, Albumin/ Globulin Ratio 0.5L Height (Feet): 5 Height (Inches): 11.00 Weight (Pounds): 165 Neck: supple Cardiovascular: normal rate Abdomen: non tender Edema: no edema noted Leg (L), no edema noted Leg (R) Neurologic: disoriented Skin: warm/dry Dario Henderson Jun 13, 2016 21:52
[2016-06-14] VITALS: BP 126/77
[2016-06-14] MEDS: NovoLOG Insulin Flexpen SUBQ SCH ×8 (00:55→21:13)
--- NOTE | 2016-06-14 02:08 | Progress Note ---
DATE: 06/13/2016 CARDIOLOGY PROGRESS NOTE SUBJECTIVE: The patient remains on an insulin drip. He is in the intensive care unit. His condition remains critical with guarded prognosis. Urine output is improving as is his renal function. However, he continues to have ischemia of his right hand and bilateral toes. OBJECTIVE: VITAL SIGNS: Monitored rhythm, sinus. Blood pressure 121/64, pulse 80 to 105, and respiratory rate 18 to 20. His temperature is 101.4 degrees max. NECK: Supple. LUNGS: Clear. CARDIAC: Regular rhythm. Rapid rate. Normal S1 and S2. ABDOMEN: Soft. EXTREMITIES: With trace edema. Ischemic changes of the digits as previously noted. LABORATORY DATA: White count 8.3 and hemoglobin 7.7. Sodium 151, potassium 3.7, bicarbonate 30, BUN 21, and creatinine 1.4. Magnesium 1.7. Albumin 2. IMPRESSION: 1. Severe sepsis with shock, recovering. 2. Dehydration and hypernatremia, improving. 3. Acute renal failure, recovering. 4. Ischemic digits and right hand, unchanged. 5. Rhabdomyolysis, slowly improving. 6. Severe protein-calorie malnutrition, persisting. 7. Severe anemia in the patient with a Holiness. PLAN: 1. Hypotonic hydration. 2. Pain control and skin care. 3. May ultimately need amputation. 4. Monitor for development of wet gangrene. 5. Antibiotics per Infectious Disease benefits consultant. 6. Nutrition by feeding tube. 7. No transfusions of blood products planned. 8. Condition remains critical with guarded prognosis. Family aware. Morales Serrano M.D. DR: TEREZA JOB#: [id number] CC:
[2016-06-14 04:00] VITALS: BP 127/87
[2016-06-14] MEDS: CEFTAROLINE IV SCH ×2 (06:00→19:47)
[2016-06-14] MEDS: NS IV SCH ×7 (06:00→19:47)
--- NOTE | 2016-06-14 07:09 | General Progress Note ---
Assessment/Plan Problem List: (1) DKA (diabetic ketoacidoses) ICD Codes: E13.10 - Other specified diabetes mellitus with ketoacidosis without coma SNOMED: 965926807, 22289631 Qualifiers: Qualified Codes: E13.11 - Other specified diabetes mellitus with ketoacidosis with coma (2) Leukocytosis ICD Codes: D72.829 - Elevated white blood cell count, unspecified SNOMED: 632414446, 972303244 Qualifiers: Qualified Codes: D72.829 - Elevated white blood cell count, unspecified (3) Altered level of consciousness ICD Codes: R40.4 - Transient alteration of awareness SNOMED: 6374365 (4) Acute renal failure ICD Codes: N17.9 - Acute kidney failure, unspecified SNOMED: 79125519 Qualifiers: Qualified Codes: N17.0 - Acute kidney failure with tubular necrosis (5) Hypernatremia ICD Codes: E87.0 - Hyperosmolality and hypernatremia SNOMED: 73217674 (6) Metabolic acidosis ICD Codes: E87.2 - Acidosis SNOMED: 19218729 (7) Ischemia of digits of hand ICD Codes: I99.8 - Other disorder of circulatory system SNOMED: 496392948 (8) Ischemia of extremity ICD Codes: I99.8 - Other disorder of circulatory system SNOMED: 96041537860368 Assessment/Plan DKA resolved continue Levemir 10 units bid + SSI DC Novolog 4 units every 4 hours standing order Subjective ROS Limited/Unobtainable: Yes Allergies: Coded Allergies: No Known Allergies (Unverified , 05/30/16) Subjective events noted - interval notes reviewed transferred out of icu Objective Last 24 Hour Vital Signs Date Time Temp Pulse Resp B/P Pulse Ox O2 Delivery O2 Flow Rate FiO2 06/14/16 04:00 97.0 94 20 127/87 97 Nasal Cannula 2.0 06/14/16 03:48 91 06/14/16 00:00 97.8 100 20 126/77 95 06/14/16 00:00 Nasal Cannula 2.0 06/13/16 23:42 89 06/13/16 21:19 109 123/80 06/13/16 20:00 104 06/13/16 20:00 98.4 109 21 123/80 95 Nasal Cannula 2.0 06/13/16 19:30 Nasal Cannula 2.0 28 1/17/17 19:30 95 Nasal Cannula 2.0 28 06/13/16 16:01 94 06/13/16 16:00 97.5 101 19 127/79 97 Nasal Cannula 2.0 06/13/16 15:44 Nasal Cannula 2.0 28 06/13/16 15:44 97 Nasal Cannula 2.0 28 06/13/16 14:00 88 20 111/65 100 Nasal Cannula 2.0 06/13/16 13:00 85 20 116/66 100 Nasal Cannula 2.0 06/13/16 12:10 82 06/13/16 12:00 99.2 82 20 123/73 100 Nasal Cannula 2.0 06/13/16 11:00 83 22 108/60 99 Nasal Cannula 2.0 06/13/16 10:00 87 15 117/75 100 Nasal Cannula 2.0 06/13/16 09:00 88 17 125/75 100 Nasal Cannula 2.0 06/13/16 08:28 98 122/69 06/13/16 08:00 96 06/13/16 08:00 100.3 95 15 122/69 100 Nasal Cannula 2.0 Intake and Output 06/13/16 06/14/16 19:00 07:00 Intake Total 1547 ml 1340 ml Output Total 900 ml 1800 ml Balance 647 ml -460 ml Free Water 150 ml IV Total 1057 ml 1160 ml Tube Feeding 240 ml 180 ml Other 100 ml Output Urine Total 900 ml 1800 ml # Bowel Movements 1 Height (Feet): 5 Height (Inches): 11.00 Weight (Pounds): 165 General Appearance: moderate distress EENT: pale conjunctivae Neck: normal alignment Cardiovascular: normal rate Respiratory/Chest: decreased breath sounds Abdomen: normal bowel sounds Objective Current Medications Medications (Trade) Dose Ordered Sig/Mateo Route PRN Reason Start Time Stop Time Status Last Admin Dose Admin Acetaminophen (Tylenol) 650 mg EVERY 4 HOURS PRN NG fever 100 and above 06/13/16 17:00 07/13/16 16:59 Ceftaroline Fosamil 600 mg/ Sodium Chloride 110 ml @ 110 mls/hr Q12HR@0600,1800 IV 06/13/16 18:00 06/19/16 17:59 06/14/16 06:00 Dextrose (Dextrose 50%) STAT PRN IV Hypoglycemia 06/14/16 10:00 07/14/16 09:59 Docusate Sodium (Colace) 100 mg BID NG 06/13/16 18:00 07/13/16 17:59 06/13/16 19:17 Epoetin Zia (Procrit (for non ESRD use)) 10,000 units SUN-SUN-SUN SUBQ 06/14/16 21:00 07/14/16 20:59 Fluconazole (Diflucan) 100 mg DAILY GT 06/14/16 09:00 06/21/16 08:59 Insulin Aspart (NovoLOG) EVERY 4 HOURS SUBQ 06/13/16 17:00 07/13/16 16:59 06/13/16 17:45 Insulin Aspart (NovoLOG) 4 units EVERY 4 HOURS SUBQ 06/13/16 17:00 07/13/16 16:59 06/14/16 05:19 Insulin Detemir (Levemir) 10 units Q12HR SUBQ 06/13/16 21:00 07/13/16 20:59 06/13/16 21:32 Iron Sucrose/ Sodium Chloride (Venofer/Sodium Chloride) 115 ml @ 418.182 mls/hr BEDTIME IVPB 06/13/16 21:00 06/15/16 21:01 06/13/16 21:11 Metoprolol Tartrate (Lopressor) 50 mg EVERY 12 HOURS ORAL 06/13/16 21:00 07/13/16 20:59 06/13/16 21:19 Potassium Chloride 40 meq 40 meq Q12H NG 06/13/16 21:00 07/13/16 20:59 06/13/16 21:19 Sodium Bicarbonate/ Potassium Chloride/Sodium Chloride (Sodium Bicarbonate/KCl/ Sodium Chloride 1000ml bag) 1,065 ml @ 150 mls/hr Q7H6M IV 06/13/16 17:00 07/13/16 16:59 06/14/16 00:00 Item Value Date Time Bedside Blood Glucose 101 mg/dl 06/14/16 0519 Bedside Blood Glucose 105 mg/dl 06/14/16 0100 Bedside Blood Glucose 134 mg/dl H 06/13/16 1745 Bedside Blood Glucose 201 mg/dl H 06/13/16 1227 Bedside Blood Glucose 138 mg/dl H 06/13/16 0831 Bedside Blood Glucose 146 mg/dl H 06/13/16 0600 Bedside Blood Glucose 168 mg/dl H 06/13/16 0209 JOELLEN LEARY Jun 14, 2016 07:09
[2016-06-14 08:04] VITALS: BP 144/76
[2016-06-14 08:27] LABS: BASOPHILS % (AUTO) 0.2 % (0.0-2.0); EOSINOPHILS % (AUTO) 2.7 % (0.0-3.0); LYMPHOCYTES % (AUTO) 13.1 % (20.0-45.0); MEAN CORPUSCULAR HEMOGLOBIN 25.3 PG (27.0-31.0); MEAN CORPUSCULAR HGB CONC 30.8 G/DL (32.0-36.0); MEAN CORPUSCULAR VOLUME 82 FL (80-99); MEAN PLATELET VOLUME 11.8 FL (6.5-10.1); MONOCYTES % (AUTO) 4.9 % (1.0-10.0); NEUTROPHILS % (AUTO) 79.1 % (45.0-75.0); PLATELET COUNT 150 K/UL (150-450); RED BLOOD COUNT 3.32 M/UL (4.70-6.10); WHITE BLOOD COUNT 9.4 K/UL (4.8-10.8)
[2016-06-14 08:38] LABS: ANION GAP 12 (5-15); CALCIUM 8.5 mg/dL (8.6-10.2); CARBON DIOXIDE 28 mEQ/L (20-30); CHLORIDE 115 mEQ/L (98-107); CREATININE 1.4 mg/dL (0.7-1.2); GLOMERULAR FILTRATION RATE 52.1 mL/min (>60); HEMOLYSIS 0; POTASSIUM 4.4 mEQ/L (3.4-4.9); SODIUM 155 mEQ/L (135-145)
[2016-06-14] MEDS: Docusate 100mg tablet NG SCH ×2 (09:08→17:52)
[2016-06-14] MEDS: KCl 10% 40mEq/30ml liquid NG SCH ×2 (09:08→21:15)
[2016-06-14] MEDS: POTASSIUM CHLORIDE IV SCH ×5 (09:08→14:28)
[2016-06-14] MEDS: SODIUM BICARBONATE IV SCH ×5 (09:08→14:28)
[2016-06-14] MEDS: Fluconazole 100mg tab GT SCH (09:09)
[2016-06-14] MEDS: Metoprolol 50mg tab ORAL SCH ×2 (09:09→21:05)
[2016-06-14] MEDS: Levemir Flexpen SUBQ SCH ×2 (09:11→21:14)
--- NOTE | 2016-06-14 09:17 | Podiatric Progress Note ---
Assessment/Plan Patient Shoaib De Anda is a 56 year old male who was admitted on Jun 07, 2016 at 18:35 with DKA Problems: (1) Ischemia of foot (2) Leukocytosis (3) Post traumatic encephalopathy (4) DKA (diabetic ketoacidoses) (5) Altered level of consciousness (6) Acute renal failure Assessment/Plan - Left foot bulla has auto-lanced. Goal is to keep the area from being infected or macerated. Start daily wound care for left foot - Continue to keep the foot warm - Will continue to monitor the area for changes and wait for the ischemic areas to demarcate - Offload heels Subjective Reason for consult Bilateral foot acute ischemia of toes Allergies: Coded Allergies: No Known Allergies (Unverified , 05/30/16) Subjective Patient is unable to communicate effectively Objective Exam Last 24 Hour Vital Signs Date Time Temp Pulse Resp B/P Pulse Ox O2 Delivery O2 Flow Rate FiO2 06/14/16 08:04 96.8 104 20 144/76 93 Nasal Cannula 2.0 06/14/16 04:00 97.0 94 20 127/87 97 Nasal Cannula 2.0 06/14/16 03:48 91 06/14/16 00:00 97.8 100 20 126/77 95 06/14/16 00:00 Nasal Cannula 2.0 06/13/16 23:42 89 06/13/16 21:19 109 123/80 06/13/16 20:00 104 06/13/16 20:00 98.4 109 21 123/80 95 Nasal Cannula 2.0 06/13/16 19:30 Nasal Cannula 2.0 28 06/13/16 19:30 95 Nasal Cannula 2.0 28 06/13/16 16:01 94 06/13/16 16:00 97.5 101 19 127/79 97 Nasal Cannula 2.0 06/13/16 15:44 Nasal Cannula 2.0 28 06/13/16 15:44 97 Nasal Cannula 2.0 28 06/13/16 14:00 88 20 111/65 100 Nasal Cannula 2.0 06/13/16 13:00 85 20 116/66 100 Nasal Cannula 2.0 06/13/16 12:10 82 06/13/16 12:00 99.2 82 20 123/73 100 Nasal Cannula 2.0 06/13/16 11:00 83 22 108/60 99 Nasal Cannula 2.0 06/13/16 10:00 87 15 117/75 100 Nasal Cannula 2.0 Laboratory Tests Test 06/14/16 07:00 White Blood Count 9.4 K/UL (4.8-10.8) Red Blood Count 3.32 M/UL (4.70-6.10) L Hemoglobin 8.4 G/DL (14.2-18.0) L Hematocrit 27.2 % (42.0-52.0) L Mean Corpuscular Volume 82 FL (80-99) Mean Corpuscular Hemoglobin 25.3 PG (27.0-31.0) L Mean Corpuscular Hemoglobin Concent 30.8 G/DL (32.0-36.0) L Red Cell Distribution Width 18.0 % (11.6-14.8) H Platelet Count 150 K/UL (150-450) # Mean Platelet Volume 11.8 FL (6.5-10.1) H Neutrophils (%) (Auto) 79.1 % (45.0-75.0) H Lymphocytes (%) (Auto) 13.1 % (20.0-45.0) L Monocytes (%) (Auto) 4.9 % (1.0-10.0) Eosinophils (%) (Auto) 2.7 % (0.0-3.0) Basophils (%) (Auto) 0.2 % (0.0-2.0) Sodium Level 155 mEQ/L (135-145) H Potassium Level 4.4 mEQ/L (3.4-4.9) Chloride Level 115 mEQ/L (98-107) H Carbon Dioxide Level 28 mEQ/L (20-30) Anion Gap 12 (5-15) Blood Urea Nitrogen 19 mg/dL (7-23) Creatinine 1.4 mg/dL (0.7-1.2) H Estimat Glomerular Filtration Rate 52.1 mL/min (>60) Glucose Level 117 mg/dL (74-106) H Calcium Level 8.5 mg/dL (8.6-10.2) L Total Creatine Kinase 2394 U/L (38-174) H Microbiology Date/Time Source Procedure Growth Status 06/10/16 21:15 Blood Blood Culture - Final Staphylococcus Aureus - Mrsa Staphylococcus Sp Coag Neg Complete 1/11/17 20:45 Nasal Nares MRSA Culture - Final Staphylococcus Aureus - Mrsa Complete 06/10/16 12:30 Urine,Clean Catch Urine Culture - Final Eboni Albicans Complete 06/07/16 20:45 Rectum VRE Culture - Final Enterococcus Faecalis - Vre Complete Exam Narrative Left foot bulla has auto-lanced at the base of the 3rd and 4th toes. Increased macerated tissue noted in this area as well as the 5th toe due to the externally rotated position of the foot while in bed. No purulence or malodor noted. Lang Klein DPM Jun 14, 2016 09:17
[2016-06-14 11:33] VITALS: BP 129/85
[2016-06-14] MEDS ORDERED: KCl 10% 40mEq/30ml liquid NG SCH (14:00)
--- NOTE | 2016-06-14 14:39 | Nephrology Progress Note ---
Assessment/Plan Problem List: (1) Hypovolemic shock (2) Metabolic acidosis (3) Hypernatremia (4) Altered level of consciousness (5) Acute renal failure (6) Encephalopathy (7) Ischemia of digits of hand (8) Ischemia of extremity (9) Rhabdomyolysis Plan creatinine 1.4 04/2016 continue hydration, +bicarb,serial lytes, reduce iv rate , grave prognosis , severe rhabdo iv with bicarb, parish improving replace k, iv adjusted Subjective ROS Limited/Unobtainable: Yes Objective Objective Last 24 Hour Vital Signs Date Time Temp Pulse Resp B/P Pulse Ox O2 Delivery O2 Flow Rate FiO2 06/14/16 12:00 93 06/14/16 11:33 97.3 91 20 129/85 95 Nasal Cannula 2.0 06/14/16 09:09 104 144/76 06/14/16 08:04 96.8 104 20 144/76 93 Nasal Cannula 2.0 06/14/16 08:00 105 06/14/16 04:00 97.0 94 20 127/87 97 Nasal Cannula 2.0 06/14/16 03:48 91 06/14/16 00:00 97.8 100 20 126/77 95 06/14/16 00:00 Nasal Cannula 2.0 06/13/16 23:42 89 06/13/16 21:19 109 123/80 06/13/16 20:00 104 06/13/16 20:00 98.4 109 21 123/80 95 Nasal Cannula 2.0 06/13/16 19:30 Nasal Cannula 2.0 28 06/13/16 19:30 95 Nasal Cannula 2.0 28 06/13/16 16:01 94 06/13/16 16:00 97.5 101 19 127/79 97 Nasal Cannula 2.0 06/13/16 15:44 Nasal Cannula 2.0 28 06/13/16 15:44 97 Nasal Cannula 2.0 28 Intake and Output 06/13/16 06/14/16 19:00 07:00 Intake Total 1547 ml 1600 ml Output Total 900 ml 2800 ml Balance 647 ml -1200 ml Free Water 150 ml IV Total 1057 ml 1420 ml Tube Feeding 240 ml 180 ml Other 100 ml Output Urine Total 900 ml 2800 ml # Bowel Movements 1 Laboratory Tests 06/14/16 07:00: White Blood Count 9.4, Red Blood Count 3.32L, Hemoglobin 8.4L, Hematocrit 27.2L , Mean Corpuscular Volume 82, Mean Corpuscular Hemoglobin 25.3L, Mean Corpuscular Hemoglobin Concent 30.8L, Red Cell Distribution Width 18.0H, Platelet Count 150#, Mean Platelet Volume 11.8H, Neutrophils (%) (Auto) 79.1H, Lymphocytes (%) (Auto) 13.1L, Monocytes (%) (Auto) 4.9, Eosinophils (%) (Auto) 2.7, Basophils (%) (Auto) 0.2, Sodium Level 155H, Potassium Level 4.4, Chloride Level 115H, Carbon Dioxide Level 28, Anion Gap 12, Blood Urea Nitrogen 19, Creatinine 1.4H, Estimat Glomerular Filtration Rate 52.1, Glucose Level 117H, Calcium Level 8.5L, Total Creatine Kinase 2394H Height (Feet): 5 Height (Inches): 11.00 Weight (Pounds): 165 General Appearance: confused EENT: normal ENT inspection Neck: non-tender, normal alignment Cardiovascular: normal rate, regular rhythm Respiratory/Chest: lungs clear Abdomen: non tender Extremities: moderate edema, other - ischemic digits Neurologic: motor weakness, disoriented SHASTA REDDY Jun 14, 2016 14:39
--- NOTE | 2016-06-14 14:55 | Infectious Diseases Prog Note ---
Assessment/Plan Assessment/Plan A: MRSA, [employer] sepsis Toes & finger cyanosis MRSA & VRE colonization Anemia Thrombocytopenia Acute renal failure Fungal UTI P 1. continue Teflaro & Fluconazole 2. will follow up cultures Subjective ROS Limited/Unobtainable: Yes Allergies: Coded Allergies: No Known Allergies (Unverified , 05/30/16) Objective Vital Signs Last 24 Hour Vital Signs Date Time Temp Pulse Resp B/P Pulse Ox O2 Delivery O2 Flow Rate FiO2 06/14/16 12:00 93 06/14/16 11:33 97.3 91 20 129/85 95 Nasal Cannula 2.0 06/14/16 09:09 104 144/76 06/14/16 08:04 96.8 104 20 144/76 93 Nasal Cannula 2.0 06/14/16 08:00 105 06/14/16 04:00 97.0 94 20 127/87 97 Nasal Cannula 2.0 06/14/16 03:48 91 06/14/16 00:00 97.8 100 20 126/77 95 06/14/16 00:00 Nasal Cannula 2.0 06/13/16 23:42 89 06/13/16 21:19 109 123/80 06/13/16 20:00 104 06/13/16 20:00 98.4 109 21 123/80 95 Nasal Cannula 2.0 06/13/16 19:30 Nasal Cannula 2.0 28 06/13/16 19:30 95 Nasal Cannula 2.0 28 06/13/16 16:01 94 06/13/16 16:00 97.5 101 19 127/79 97 Nasal Cannula 2.0 06/13/16 15:44 Nasal Cannula 2.0 28 06/13/16 15:44 97 Nasal Cannula 2.0 28 Height (Feet): 5 Height (Inches): 11.00 Weight (Pounds): 165 General Appearance: no acute distress HEENT: mucous membranes moist Respiratory/Chest: lungs clear Cardiovascular: normal rate Abdomen: soft, non tender, other - NG tube Extremities: no edema, other - cynanotic toes & finger tips Neurologic/Psychiatric: disoriented Laboratory Tests Test 06/14/16 07:00 White Blood Count 9.4 K/UL (4.8-10.8) Red Blood Count 3.32 M/UL (4.70-6.10) L Hemoglobin 8.4 G/DL (14.2-18.0) L Hematocrit 27.2 % (42.0-52.0) L Mean Corpuscular Volume 82 FL (80-99) Mean Corpuscular Hemoglobin 25.3 PG (27.0-31.0) L Mean Corpuscular Hemoglobin Concent 30.8 G/DL (32.0-36.0) L Red Cell Distribution Width 18.0 % (11.6-14.8) H Platelet Count 150 K/UL (150-450) # Mean Platelet Volume 11.8 FL (6.5-10.1) H Neutrophils (%) (Auto) 79.1 % (45.0-75.0) H Lymphocytes (%) (Auto) 13.1 % (20.0-45.0) L Monocytes (%) (Auto) 4.9 % (1.0-10.0) Eosinophils (%) (Auto) 2.7 % (0.0-3.0) Basophils (%) (Auto) 0.2 % (0.0-2.0) Sodium Level 155 mEQ/L (135-145) H Potassium Level 4.4 mEQ/L (3.4-4.9) Chloride Level 115 mEQ/L (98-107) H Carbon Dioxide Level 28 mEQ/L (20-30) Anion Gap 12 (5-15) Blood Urea Nitrogen 19 mg/dL (7-23) Creatinine 1.4 mg/dL (0.7-1.2) H Estimat Glomerular Filtration Rate 52.1 mL/min (>60) Glucose Level 117 mg/dL (74-106) H Calcium Level 8.5 mg/dL (8.6-10.2) L Total Creatine Kinase 2394 U/L (38-174) H Current Medications Medications (Trade) Dose Ordered Sig/Mateo Route PRN Reason Start Time Stop Time Status Last Admin Dose Admin Acetaminophen (Tylenol) 650 mg EVERY 4 HOURS PRN NG fever 100 and above 06/13/16 17:00 07/13/16 16:59 Ceftaroline Fosamil 600 mg/ Sodium Chloride 110 ml @ 110 mls/hr Q12HR@0600,1800 IV 06/13/16 18:00 06/19/16 17:59 06/14/16 06:00 Dextrose (Dextrose 50%) STAT PRN IV Hypoglycemia 06/14/16 10:00 07/14/16 09:59 Docusate Sodium (Colace) 100 mg BID NG 06/13/16 18:00 07/13/16 17:59 06/14/16 09:08 Epoetin Zia (Procrit (for non ESRD use)) 10,000 units SUN-SUN-SUN SUBQ 06/14/16 21:00 07/14/16 20:59 Fluconazole (Diflucan) 100 mg DAILY GT 06/14/16 09:00 06/21/16 08:59 06/14/16 09:09 Insulin Aspart (NovoLOG) EVERY 4 HOURS SUBQ 06/13/16 17:00 07/13/16 16:59 06/14/16 13:10 Insulin Detemir (Levemir) 10 units Q12HR SUBQ 06/13/16 21:00 07/13/16 20:59 06/14/16 09:11 Iron Sucrose/ Sodium Chloride (Venofer/Sodium Chloride) 115 ml @ 418.182 mls/hr BEDTIME IVPB 06/13/16 21:00 06/15/16 21:01 06/13/16 21:11 Metoprolol Tartrate (Lopressor) 50 mg EVERY 12 HOURS ORAL 06/13/16 21:00 07/13/16 20:59 06/14/16 09:09 Potassium Chloride 40 meq 40 meq Q12H NG 06/13/16 21:00 07/13/16 20:59 06/14/16 09:08 Sodium Bicarbonate/ Sodium Chloride (Sodium Bicarbonate/0.45% NS 1000ml) 1,050 ml @ 125 mls/hr Q8H24M IV 06/14/16 14:45 07/14/16 14:44 DE GOODEN Jun 14, 2016 14:55
--- NOTE | 2016-06-14 15:25 | Wound Care Consultation ---
Wound Assessment Wound Assessment #1: Wound Present on Admission: Yes New Wound: No Status Change of Wound: No Wound Location Body Site Modif: left Wound Location Body Site: other - all toes Wound Type: other - acute ischemia Trista Test: Does not Trista Wound Thickness: Full Thickness Percent of Wound Black/Brown: 100 Wound Drainage Description: Serosanguineous Wound Drainage Amount: Scant Wound Drainage Odor: None/Absent Tissue Surrounding Wound: Indurated Wound General Appearance: Blackened Wound Assessment #2: Wound Number: #2 Wound Present on Admission: Yes New Wound: No Status Change of Wound: No Wound Location Body Site Modif: right Wound Location Body Site: other - all toes Wound Type: other - acute ischemia Trista Test: Does not Trista Wound Thickness: Full Thickness Percent of Wound Black/Brown: 100 Wound Drainage Amount: None Wound Drainage Odor: None/Absent Tissue Surrounding Wound: Indurated Wound General Appearance: Blackened Wound Assessment #3: Wound Number: #3 Wound Present on Admission: Yes New Wound: No Status Change of Wound: No Wound Location Body Site Modif: right Wound Location Body Site: finger - all 5 Wound Type: other - acute ischemia Trista Test: Does not Trista Wound Thickness: Full Thickness Percent of Wound Black/Brown: 100 Wound Drainage Amount: None Wound Drainage Odor: None/Absent Tissue Surrounding Wound: Indurated Wound General Appearance: Blackened Wound Comment Acute ischemia of bilateral toes and Right fingers. skin black in color. no drainage noted from Right fingers and Right toes. with scant amount of serosanguineous drainage noted from left 4th and 5th toe. no odor a this time. match maker on the case, with treatment order and recommendation by match maker. BIN NOLAND RN Jun 14, 2016 15:25
[2016-06-14 16:00] VITALS: BP 146/89
--- NOTE | 2016-06-14 17:44 | General Progress Note ---
Assessment/Plan Problem List: (1) Acute renal failure ICD Codes: N17.9 - Acute kidney failure, unspecified SNOMED: 35486769 Qualifiers: Qualified Codes: N17.0 - Acute kidney failure with tubular necrosis (2) Encephalopathy ICD Codes: G93.40 - Encephalopathy, unspecified SNOMED: 87875625, 167579478 (3) DKA (diabetic ketoacidoses) ICD Codes: E13.10 - Other specified diabetes mellitus with ketoacidosis without coma SNOMED: 199846787, 15386022 Qualifiers: Qualified Codes: E13.11 - Other specified diabetes mellitus with ketoacidosis with coma (4) Leukocytosis ICD Codes: D72.829 - Elevated white blood cell count, unspecified SNOMED: 195958293, 849240939 Qualifiers: Qualified Codes: D72.829 - Elevated white blood cell count, unspecified (5) Altered level of consciousness ICD Codes: R40.4 - Transient alteration of awareness SNOMED: 4230907 Status: stable, progressing Assessment/Plan ivf per renal insulin IV abx per ID resp care/o2 ngt feeds. check swalllow eval no transfusion per family monitor h/h. high dose epo and iron infusion will ultimately need amputation of fingers and toes/feet. remain critical and guarded Subjective ROS Limited/Unobtainable: Yes Constitutional: Reports: malaise, weakness HEENT: Reports: no symptoms Cardiovascular: Reports: no symptoms Respiratory: Reports: no symptoms Gastrointestinal/Abdominal: Reports: no symptoms Genitourinary: Reports: no symptoms Neurologic/Psychiatric: Reports: no symptoms Hematologic/Lymphatic: Reports: anemia Allergies: Coded Allergies: No Known Allergies (Unverified , 05/30/16) All Systems: reviewed and negative except above Subjective on tele. no real change. remains confused. more alert. answers some simple questions and follows simple commands. on ivf and iv abx. +ngt feeds. ischemic feet and digits unchanged. Objective Last 24 Hour Vital Signs Date Time Temp Pulse Resp B/P Pulse Ox O2 Delivery O2 Flow Rate FiO2 06/14/16 16:00 98.1 102 20 146/89 98 Nasal Cannula 2.0 06/14/16 12:00 93 06/14/16 11:33 97.3 91 20 129/85 95 Nasal Cannula 2.0 06/14/16 09:09 104 144/76 06/14/16 08:04 96.8 104 20 144/76 93 Nasal Cannula 2.0 06/14/16 08:00 105 06/14/16 04:00 97.0 94 20 127/87 97 Nasal Cannula 2.0 06/14/16 03:48 91 06/14/16 00:00 97.8 100 20 126/77 95 06/14/16 00:00 Nasal Cannula 2.0 06/13/16 23:42 89 06/13/16 21:19 109 123/80 06/13/16 20:00 104 06/13/16 20:00 98.4 109 21 123/80 95 Nasal Cannula 2.0 06/13/16 19:30 Nasal Cannula 2.0 28 06/13/16 19:30 95 Nasal Cannula 2.0 28 Intake and Output 06/13/16 06/14/16 19:00 07:00 Intake Total 1547 ml 1600 ml Output Total 900 ml 2800 ml Balance 647 ml -1200 ml Free Water 150 ml IV Total 1057 ml 1420 ml Tube Feeding 240 ml 180 ml Other 100 ml Output Urine Total 900 ml 2800 ml # Bowel Movements 1 Laboratory Tests 06/14/16 07:00: White Blood Count 9.4, Red Blood Count 3.32L, Hemoglobin 8.4L, Hematocrit 27.2L , Mean Corpuscular Volume 82, Mean Corpuscular Hemoglobin 25.3L, Mean Corpuscular Hemoglobin Concent 30.8L, Red Cell Distribution Width 18.0H, Platelet Count 150#, Mean Platelet Volume 11.8H, Neutrophils (%) (Auto) 79.1H, Lymphocytes (%) (Auto) 13.1L, Monocytes (%) (Auto) 4.9, Eosinophils (%) (Auto) 2.7, Basophils (%) (Auto) 0.2, Sodium Level 155H, Potassium Level 4.4, Chloride Level 115H, Carbon Dioxide Level 28, Anion Gap 12, Blood Urea Nitrogen 19, Creatinine 1.4H, Estimat Glomerular Filtration Rate 52.1, Glucose Level 117H, Calcium Level 8.5L, Total Creatine Kinase 2394H Height (Feet): 5 Height (Inches): 11.00 Weight (Pounds): 165 Objective eneral Appearance: WD/WN, alert, confused. NGT in place Neck: supple Cardiovascular: regular rhythm Respiratory/Chest: lungs clear Abdomen: normal bowel sounds, non tender, soft, no organomegaly, no mass Edema: mild edema Neurologic: alert Skin: cyanotic - right hand fingers. cyanotic toes/forefoot bilaterally. + blisters DARYN JEREZ Jun 14, 2016 17:44
[2016-06-14] MEDS: Sodium Bicarbonate 50 ML in 1/2 NS 1000ml 1,000 ML IV SCH (17:52)
[2016-06-14 20:00] VITALS: BP 146/82
[2016-06-14] MEDS ORDERED: Epogen (for non ESRD use) SUBQ SCH ×2 (21:00)
[2016-06-14] MEDS: Iron Sucrose 100 MG in NS 110 ML IVPB SCH (21:06)
--- NOTE | 2016-06-14 23:47 | General Progress Note ---
Assessment/Plan Assessment/Plan Assessment: 1. Leukocytosis potentially 2/2 infection- improved 2. Bilateral DVTs of the lower extremities - is s/p ivc fitler (retrievable) given anemia and thrombocytopenia 3. Anemia 2/2 chronic disease - patient is JW, refusing blood transfusions, is on epogen and iron 4. Thrombocytopenia - likely 2/2 infection and consumptive state-- improved; peripheral smear is normal. 5. Hepatitis panel negative. 6. Toe ischemia and microvascular ischemia 7. ARF due to severe rhabdo- improving 8. Dehydration-- improved 9. Shock--improved 9. DKA-improved Recommendations: - Continue epogen - Continue IV iron - Refusing blood products - Hgb goal >7 - Plt goal >10k - DIC panel reviewed - Abx to continue per ID - DW Staff Sincerely, Dario Henderson MD Subjective Constitutional: Reports: no symptoms HEENT: Reports: no symptoms Cardiovascular: Reports: no symptoms Respiratory: Reports: no symptoms Gastrointestinal/Abdominal: Reports: no symptoms Genitourinary: Reports: no symptoms Neurologic/Psychiatric: Reports: no symptoms Endocrine: Reports: no symptoms Allergies: Coded Allergies: No Known Allergies (Unverified , 05/30/16) Subjective stable, no events overnight Objective Last 24 Hour Vital Signs Date Time Temp Pulse Resp B/P Pulse Ox O2 Delivery O2 Flow Rate FiO2 06/14/16 21:05 109 146/82 06/14/16 20:00 98.0 109 20 146/82 98 Nasal Cannula 2.0 06/14/16 16:00 98.1 102 20 146/89 98 Nasal Cannula 2.0 06/14/16 12:00 93 06/14/16 11:33 97.3 91 20 129/85 95 Nasal Cannula 2.0 06/14/16 09:09 104 144/76 06/14/16 08:04 96.8 104 20 144/76 93 Nasal Cannula 2.0 06/14/16 08:00 105 Intake and Output 06/14/16 06/14/16 11:00 23:00 Intake Total 1600 ml 450 ml Output Total 2000 ml 4000 ml Balance -400 ml -3550 ml IV Total 1460 ml 450 ml Tube Feeding 140 ml Output Urine Total 2000 ml 4000 ml # Bowel Movements 1 Laboratory Tests 06/14/16 07:00: White Blood Count 9.4, Red Blood Count 3.32L, Hemoglobin 8.4L, Hematocrit 27.2L , Mean Corpuscular Volume 82, Mean Corpuscular Hemoglobin 25.3L, Mean Corpuscular Hemoglobin Concent 30.8L, Red Cell Distribution Width 18.0H, Platelet Count 150#, Mean Platelet Volume 11.8H, Neutrophils (%) (Auto) 79.1H, Lymphocytes (%) (Auto) 13.1L, Monocytes (%) (Auto) 4.9, Eosinophils (%) (Auto) 2.7, Basophils (%) (Auto) 0.2, Sodium Level 155H, Potassium Level 4.4, Chloride Level 115H, Carbon Dioxide Level 28, Anion Gap 12, Blood Urea Nitrogen 19, Creatinine 1.4H, Estimat Glomerular Filtration Rate 52.1, Glucose Level 117H, Calcium Level 8.5L, Total Creatine Kinase 2394H Height (Feet): 5 Height (Inches): 11.00 Weight (Pounds): 165 General Appearance: no apparent distress EENT: PERRL/EOMI Neck: supple Cardiovascular: normal rate Respiratory/Chest: lungs clear Abdomen: non tender Extremities: non-tender Edema: 1+ Leg (L), 1+ Leg (R) Skin: warm/dry Dario Henderson Jun 14, 2016 23:47
[2016-06-15] VITALS (7 sets, daily range): BP systolic 125–148; BP diastolic 81–98
[2016-06-15] MEDS: NovoLOG Insulin Flexpen SUBQ SCH ×6 (01:09→20:48)
[2016-06-15] MEDS: Sodium Bicarbonate 50 ML in 1/2 NS 1000ml 1,000 ML IV SCH ×3 (02:56→15:47)
[2016-06-15] MEDS: CEFTAROLINE IV SCH ×2 (05:33→18:19)
[2016-06-15] MEDS: NS IV SCH ×2 (05:33→18:19)
--- NOTE | 2016-06-15 07:58 | General Progress Note ---
Assessment/Plan Problem List: (1) Acute renal failure ICD Codes: N17.9 - Acute kidney failure, unspecified SNOMED: 27060755 Qualifiers: Qualified Codes: N17.0 - Acute kidney failure with tubular necrosis (2) Encephalopathy ICD Codes: G93.40 - Encephalopathy, unspecified SNOMED: 26589536, 909311210 (3) DKA (diabetic ketoacidoses) ICD Codes: E13.10 - Other specified diabetes mellitus with ketoacidosis without coma SNOMED: 827093951, 52508771 Qualifiers: Qualified Codes: E13.11 - Other specified diabetes mellitus with ketoacidosis with coma (4) Leukocytosis ICD Codes: D72.829 - Elevated white blood cell count, unspecified SNOMED: 049665872, 813119049 Qualifiers: Qualified Codes: D72.829 - Elevated white blood cell count, unspecified (5) Altered level of consciousness ICD Codes: R40.4 - Transient alteration of awareness SNOMED: 1015949 Status: stable, progressing Assessment/Plan ivf per renal insulin coverage IV abx per ID resp care/o2 ngt feeds. await swalllow eval no transfusion per family monitor h/h. high dose epo and iron infusion will ultimately need amputation of fingers and toes/feet. remain critical and guarded Subjective ROS Limited/Unobtainable: Yes Constitutional: Reports: malaise, weakness HEENT: Reports: no symptoms Cardiovascular: Reports: no symptoms Respiratory: Reports: no symptoms Gastrointestinal/Abdominal: Reports: difficulty swallowing Genitourinary: Reports: no symptoms Neurologic/Psychiatric: Reports: pre-existing deficit Endocrine: Reports: no symptoms Hematologic/Lymphatic: Reports: anemia Allergies: Coded Allergies: No Known Allergies (Unverified , 05/30/16) All Systems: reviewed and negative except above Subjective on tele. no real change. remains confused but more alert. answers some simple questions and follows simple commands. on ivf and iv abx. +ngt feeds. ischemic feet and digits unchanged. swallow eval pending Objective Last 24 Hour Vital Signs Date Time Temp Pulse Resp B/P Pulse Ox O2 Delivery O2 Flow Rate FiO2 06/15/16 04:00 98.2 105 20 144/85 95 Nasal Cannula 2.0 06/15/16 04:00 104 06/15/16 00:00 99.3 92 20 147/84 90 Nasal Cannula 2.0 06/15/16 00:00 93 06/14/16 21:05 109 146/82 06/14/16 20:00 105 06/14/16 20:00 98.0 109 20 146/82 98 Nasal Cannula 2.0 06/14/16 19:05 Nasal Cannula 2.0 28 06/14/16 19:05 98 Nasal Cannula 2.0 28 06/14/16 16:00 100 06/14/16 16:00 98.1 102 20 146/89 98 Nasal Cannula 2.0 06/14/16 12:00 93 06/14/16 11:33 97.3 91 20 129/85 95 Nasal Cannula 2.0 06/14/16 09:09 104 144/76 06/14/16 08:04 96.8 104 20 144/76 93 Nasal Cannula 2.0 06/14/16 08:00 105 Intake and Output 06/14/16 06/15/16 18:59 06:59 Intake Total 985 ml 1210 ml Output Total 3400 ml 2100 ml Balance -2415 ml -890 ml IV Total 985 ml 1210 ml Output Urine Total 3400 ml 2100 ml Height (Feet): 5 Height (Inches): 11.00 Weight (Pounds): 165 Objective eneral Appearance: WD/WN, alert, confused. NGT in place Neck: supple Cardiovascular: regular rhythm Respiratory/Chest: lungs clear Abdomen: normal bowel sounds, non tender, soft, no organomegaly, no mass Edema: mild edema Neurologic: alert Skin: cyanotic - right hand fingers. cyanotic toes/forefoot bilaterally. + blisters DARYN JEREZ Jun 15, 2016 07:58
[2016-06-15 09:01] LABS: ANION GAP 17 (5-15); CALCIUM 8.6 mg/dL (8.6-10.2); CARBON DIOXIDE 25 mEQ/L (20-30); CHLORIDE 113 mEQ/L (98-107); CREATININE 1.3 mg/dL (0.7-1.2); GLOMERULAR FILTRATION RATE 56.7 mL/min (>60); HEMOLYSIS 12; POTASSIUM 4.3 mEQ/L (3.4-4.9); SODIUM 155 mEQ/L (135-145)
[2016-06-15] MEDS: Levemir Flexpen SUBQ SCH ×2 (09:22→20:46)
[2016-06-15] MEDS: Metoprolol 50mg tab ORAL SCH (09:33)
[2016-06-15] MEDS: Fluconazole 100mg tab GT SCH (09:33)
[2016-06-15] MEDS: KCl 10% 40mEq/30ml liquid NG SCH ×2 (09:33→20:48)
[2016-06-15] MEDS: Docusate 100mg tablet NG SCH ×2 (09:33→17:46)
--- NOTE | 2016-06-15 15:31 | Infectious Diseases Prog Note ---
Assessment/Plan Assessment/Plan A: MRSA, [employer]PER sepsis Toes & finger cyanosis MRSA & VRE colonization Anemia Thrombocytopenia Acute renal failure Fungal UTI DVT of legs S/P IVC filter P 1. continue Teflaro & Fluconazole 2. will follow up cultures Subjective ROS Limited/Unobtainable: Yes Allergies: Coded Allergies: No Known Allergies (Unverified , 05/30/16) Objective Vital Signs Last 24 Hour Vital Signs Date Time Temp Pulse Resp B/P Pulse Ox O2 Delivery O2 Flow Rate FiO2 06/15/16 11:28 97.1 89 20 139/87 100 Nasal Cannula 2.0 06/15/16 09:33 95 141/81 06/15/16 09:30 Nasal Cannula 2.0 28 06/15/16 09:30 97 Nasal Cannula 2.0 28 06/15/16 08:13 97.3 95 20 141/81 94 Nasal Cannula 2.0 06/15/16 08:00 100 06/15/16 04:00 98.2 105 20 144/85 95 Nasal Cannula 2.0 06/15/16 04:00 104 06/15/16 00:00 99.3 92 20 147/84 90 Nasal Cannula 2.0 06/15/16 00:00 93 06/14/16 21:05 109 146/82 06/14/16 20:00 105 06/14/16 20:00 98.0 109 20 146/82 98 Nasal Cannula 2.0 06/14/16 19:05 Nasal Cannula 2.0 28 06/14/16 19:05 98 Nasal Cannula 2.0 28 06/14/16 16:00 100 06/14/16 16:00 98.1 102 20 146/89 98 Nasal Cannula 2.0 Height (Feet): 5 Height (Inches): 11.00 Weight (Pounds): 165 General Appearance: no acute distress HEENT: mucous membranes moist Respiratory/Chest: lungs clear Cardiovascular: normal rate Abdomen: soft, non tender, other - NG tube Extremities: other - edema pf legs, right hand fingers & both feet toes discoloration Neurologic/Psychiatric: disoriented Laboratory Tests Test 06/15/16 07:30 Sodium Level 155 mEQ/L (135-145) H Potassium Level 4.3 mEQ/L (3.4-4.9) Chloride Level 113 mEQ/L (98-107) H Carbon Dioxide Level 25 mEQ/L (20-30) Anion Gap 17 (5-15) H Blood Urea Nitrogen 19 mg/dL (7-23) Creatinine 1.3 mg/dL (0.7-1.2) H Estimat Glomerular Filtration Rate 56.7 mL/min (>60) Glucose Level 118 mg/dL (74-106) H Calcium Level 8.6 mg/dL (8.6-10.2) Total Creatine Kinase 1588 U/L (38-174) H Current Medications Medications (Trade) Dose Ordered Sig/Mateo Route PRN Reason Start Time Stop Time Status Last Admin Dose Admin Acetaminophen (Tylenol) 650 mg Q4H PRN NG fever 100 and above 06/15/16 17:00 07/15/16 16:59 Ceftaroline Fosamil 600 mg/ Sodium Chloride 110 ml @ 110 mls/hr Q12HR@0600,1800 IV 06/15/16 18:00 06/22/16 17:59 Dextrose (Dextrose 50%) STAT PRN IV Hypoglycemia 06/15/16 14:30 07/15/16 14:29 Docusate Sodium (Colace) 100 mg BID NG 06/15/16 18:00 07/15/16 17:59 Epoetin Zia (Procrit (for non ESRD use)) 10,000 units MON-WED-FRI SUBQ 06/16/16 21:00 07/16/16 20:59 Fluconazole (Diflucan) 100 mg DAILY GT 06/16/16 09:00 06/23/16 08:59 Insulin Aspart (NovoLOG) EVERY 4 HOURS SUBQ 06/15/16 17:00 07/15/16 16:59 Insulin Detemir (Levemir) 10 units Q12HR SUBQ 06/15/16 21:00 07/15/16 20:59 Iron Sucrose/ Sodium Chloride (Venofer/Sodium Chloride) 60 ml @ 240 mls/hr BEDTIME IVPB 06/15/16 21:00 06/15/16 21:14 Metoprolol Tartrate (Lopressor) 50 mg EVERY 12 HOURS ORAL 06/15/16 21:00 07/15/16 20:59 Potassium Chloride (KCl 10% 40mEq Oral solution) 40 meq Q12H NG 06/15/16 21:00 07/15/16 20:59 Sodium Bicarbonate 50 ml/ Sodium Chloride 1,050 ml @ 125 mls/hr Q8H24M IV 06/15/16 15:00 07/15/16 14:59 DE REILLY Jun 15, 2016 15:30
--- NOTE | 2016-06-15 16:52 | Nephrology Progress Note ---
Assessment/Plan Problem List: (1) Hypovolemic shock (2) Metabolic acidosis (3) Hypernatremia (4) Altered level of consciousness (5) Acute renal failure (6) Encephalopathy (7) Ischemia of digits of hand (8) Ischemia of extremity (9) Rhabdomyolysis Plan creatinine 1.4 04/2016 continue hydration, +bicarb,serial lytes, reduce iv rate , grave prognosis , severe rhabdo iv with bicarb, parish improving replace k, iv adjusted--hypotonic fluids Subjective ROS Limited/Unobtainable: Yes Objective Objective Last 24 Hour Vital Signs Date Time Temp Pulse Resp B/P Pulse Ox O2 Delivery O2 Flow Rate FiO2 06/15/16 16:00 98.8 99 20 125/98 92 Nasal Cannula 2.0 06/15/16 11:28 97.1 89 20 139/87 100 Nasal Cannula 2.0 06/15/16 09:33 95 141/81 06/15/16 09:30 Nasal Cannula 2.0 28 06/15/16 09:30 97 Nasal Cannula 2.0 28 06/15/16 08:13 97.3 95 20 141/81 94 Nasal Cannula 2.0 06/15/16 08:00 100 06/15/16 04:00 98.2 105 20 144/85 95 Nasal Cannula 2.0 06/15/16 04:00 104 06/15/16 00:00 99.3 92 20 147/84 90 Nasal Cannula 2.0 06/15/16 00:00 93 06/14/16 21:05 109 146/82 06/14/16 20:00 105 06/14/16 20:00 98.0 109 20 146/82 98 Nasal Cannula 2.0 06/14/16 19:05 Nasal Cannula 2.0 28 06/14/16 19:05 98 Nasal Cannula 2.0 28 Intake and Output 06/14/16 06/15/16 19:00 07:00 Intake Total 875 ml 1335 ml Output Total 3400 ml 2100 ml Balance -2525 ml -765 ml IV Total 875 ml 1335 ml Output Urine Total 3400 ml 2100 ml Laboratory Tests 06/15/16 07:30: Sodium Level 155H, Potassium Level 4.3, Chloride Level 113H, Carbon Dioxide Level 25, Anion Gap 17H, Blood Urea Nitrogen 19, Creatinine 1.3H, Estimat Glomerular Filtration Rate 56.7, Glucose Level 118H, Calcium Level 8.6, Total Creatine Kinase 1588H Height (Feet): 5 Height (Inches): 11.00 Weight (Pounds): 165 General Appearance: confused EENT: normal ENT inspection Neck: normal alignment Cardiovascular: normal rate Respiratory/Chest: lungs clear Abdomen: non tender, soft Extremities: moderate edema, other - ischemic digits Neurologic: motor weakness SHASTA RDEDY Jun 15, 2016 16:52
[2016-06-15] MEDS ORDERED: Acetaminophen 650mg/20.3ml NG PRN (17:00)
[2016-06-15] MEDS ORDERED: Metoprolol 50mg tab ORAL SCH (21:00)
[2016-06-15] MEDS ORDERED: Iron Sucrose 100 MG in NS 55 ML IVPB SCH (21:00)
--- NOTE | 2016-06-15 23:33 | Podiatric Progress Note ---
Assessment/Plan Patient Shoaib De Anda is a 56 year old male who was admitted on Jun 07, 2016 at 18:35 with DKA Problems: Assessment/Plan - Keep left foot dressed with weaving a betadine moistened 4x4 between the 3rd and 4rth interdigital area and covered with adaptic, dry 4x4 gauze, and kerlix - Will monitor the area for demarcation of the gangrene - Keep bilateral feet warm - Offload heels Subjective Reason for consult Bilateral foot acute ischemia Allergies: Coded Allergies: No Known Allergies (Unverified , 05/30/16) Subjective Patient is unable to communicate effectively Objective Exam Last 24 Hour Vital Signs Date Time Temp Pulse Resp B/P Pulse Ox O2 Delivery O2 Flow Rate FiO2 06/15/16 20:48 100 148/94 06/15/16 19:00 99.5 100 20 148/94 93 Nasal Cannula 2.0 06/15/16 16:00 98.8 99 20 125/98 92 Nasal Cannula 2.0 06/15/16 11:28 97.1 89 20 139/87 100 Nasal Cannula 2.0 06/15/16 09:33 95 141/81 06/15/16 09:30 Nasal Cannula 2.0 28 06/15/16 09:30 97 Nasal Cannula 2.0 28 06/15/16 08:13 97.3 95 20 141/81 94 Nasal Cannula 2.0 06/15/16 08:00 100 06/15/16 04:00 98.2 105 20 144/85 95 Nasal Cannula 2.0 06/15/16 04:00 104 06/15/16 00:00 99.3 92 20 147/84 90 Nasal Cannula 2.0 06/15/16 00:00 93 Laboratory Tests Test 06/15/16 07:30 Sodium Level 155 mEQ/L (135-145) H Potassium Level 4.3 mEQ/L (3.4-4.9) Chloride Level 113 mEQ/L (98-107) H Carbon Dioxide Level 25 mEQ/L (20-30) Anion Gap 17 (5-15) H Blood Urea Nitrogen 19 mg/dL (7-23) Creatinine 1.3 mg/dL (0.7-1.2) H Estimat Glomerular Filtration Rate 56.7 mL/min (>60) Glucose Level 118 mg/dL (74-106) H Calcium Level 8.6 mg/dL (8.6-10.2) Total Creatine Kinase 1588 U/L (38-174) H Microbiology Date/Time Source Procedure Growth Status 06/10/16 21:15 Blood Blood Culture - Final Staphylococcus Aureus - Mrsa Staphylococcus Sp Coag Neg Complete 06/07/16 20:45 Nasal Nares MRSA Culture - Final Staphylococcus Aureus - Mrsa Complete 06/10/16 12:30 Urine,Clean Catch Urine Culture - Final Eboni Albicans Complete 06/07/16 20:45 Rectum VRE Culture - Final Enterococcus Faecalis - Vre Complete Exam Narrative Left forefoot blister has auto-lanced and draining serous fluid from the base of the proximal dorsal 3rd interdigital space that is causing increased maceration in the area Lang Klein DPM Jun 15, 2016 23:33
--- NOTE | 2016-06-16 00:04 | General Progress Note ---
Assessment/Plan Assessment/Plan Assessment: 1. Leukocytosis- improved 2. Anemia 2/2 chronic disease - patient is JW, refusing blood transfusions, is on epogen and iron 3. Bilateral DVTs of the lower extremities - is s/p ivc fitler (retrievable) given anemia and thrombocytopenia 4. Thrombocytopenia - likely 2/2 infection and consumptive state-- improved; peripheral smear is normal. 5. Hepatitis panel negative. 6. Toe ischemia and microvascular ischemia 7. ARF due to severe rhabdo- improving 8. Sodium level is trending up 9. Dehydration-- improved 10. Shock--improved 11. . DKA-improved Recommendations: - Continue epogen - Continue IV iron - Refusing blood products - Hgb goal >7 - Plt goal >10k - DIC panel reviewed - Abx to continue per ID - DW Staff Sincerely, Dario Henderson MD Subjective Constitutional: Reports: no symptoms HEENT: Reports: no symptoms Cardiovascular: Reports: no symptoms Respiratory: Reports: no symptoms Gastrointestinal/Abdominal: Reports: no symptoms Genitourinary: Reports: no symptoms Hematologic/Lymphatic: Reports: no symptoms Allergies: Coded Allergies: No Known Allergies (Unverified , 05/30/16) Subjective stable, no events overnight Objective Last 24 Hour Vital Signs Date Time Temp Pulse Resp B/P Pulse Ox O2 Delivery O2 Flow Rate FiO2 06/15/16 23:46 97.8 118 20 132/82 95 Room Air 06/15/16 20:48 100 148/94 06/15/16 19:00 99.5 100 20 148/94 93 Nasal Cannula 2.0 06/15/16 19:00 97 Nasal Cannula 2.0 28 06/15/16 19:00 Nasal Cannula 2.0 28 06/15/16 16:00 98.8 99 20 125/98 92 Nasal Cannula 2.0 06/15/16 11:28 97.1 89 20 139/87 100 Nasal Cannula 2.0 06/15/16 09:33 95 141/81 06/15/16 09:30 Nasal Cannula 2.0 28 06/15/16 09:30 97 Nasal Cannula 2.0 28 06/15/16 08:13 97.3 95 20 141/81 94 Nasal Cannula 2.0 06/15/16 08:00 100 Intake and Output 06/15/16 06/15/16 11:00 23:00 Intake Total 1110 ml 1293 ml Output Total 1500 ml 1650 ml Balance -390 ml -357 ml IV Total 1110 ml 1293 ml Output Urine Total 1500 ml 1650 ml Laboratory Tests 06/15/16 07:30: Sodium Level 155H, Potassium Level 4.3, Chloride Level 113H, Carbon Dioxide Level 25, Anion Gap 17H, Blood Urea Nitrogen 19, Creatinine 1.3H, Estimat Glomerular Filtration Rate 56.7, Glucose Level 118H, Calcium Level 8.6, Total Creatine Kinase 1588H Height (Feet): 5 Height (Inches): 11.00 Weight (Pounds): 165 General Appearance: no apparent distress EENT: PERRL/EOMI Neck: supple Cardiovascular: normal rate Respiratory/Chest: no respiratory distress Edema: 1+ Leg (L), 1+ Leg (R) Dario Henderson Jun 16, 2016 00:04
--- NOTE | 2016-06-16 00:28 | Progress Note ---
DATE: 06/15/2016 CARDIOLOGY PROGRESS NOTE SUBJECTIVE: The patient's condition remains serious, but improved. He is out of the intensive care unit. He continues with IV fluids. He has significant free water deficit. He continues to have ischemic digit and will ultimately require multiple amputations. He is confused, but alert. OBJECTIVE: VITAL SIGNS: Blood pressure of 144/85, pulse 105, respirations 20, afebrile, monitored sinus tachycardia, T-max 99.3. NECK: Supple. LUNGS: Clear. CARDIAC: Regular rhythm and rate. Normal S1 and S2 with a fourth heart sound. ABDOMEN: Soft and nontender. EXTREMITIES: No edema. SKIN: With digit as previously outlined and pictured. LABORATORY DATA: No laboratories done yet today. IMPRESSIONS: 1. Gangrenous digit. 2. Peripheral artery disease due to microvascular changes in the setting of diabetes mellitus. 3. Secondary sinus tachycardia. 4. Recovering sepsis. 5. Severe dehydration and hypernatremia. 6. Hyperchloremia. 7. Acute on chronic renal failure, improving. 8. Severe anemia in the setting of Nondenominational. 9. Hypothyroidism, on replacement therapy. PLAN: 1. Continued free water replacement. 2. NG-tube feeds pending swallow evaluation. 3. Antimicrobials. 4. Pain control and skin care. 5. DVT prophylaxis. 6. Titration of insulin. Morales Serrano M.D. DR: PAYAM JOB#: [id number] CC:
[2016-06-16] MEDS: NovoLOG Insulin Flexpen SUBQ SCH ×6 (01:01→21:06)
[2016-06-16] MEDS: Sodium Bicarbonate 50 ML in 1/2 NS 1000ml 1,000 ML IV SCH ×3 (01:02→16:12)
--- NOTE | 2016-06-16 01:37 | Progress Note ---
CARDIOLOGY PROGRESS NOTE Late entry for 06/14/2016. SUBJECTIVE: The patient is transferred out of the intensive care unit. He continues on NG-tube feedings. Swallow evaluation is pending before transitioning to oral intake. The patient is remaining on Epogen and iron infusions. He has not received transfusions as he is a [place]. The patient continues to have ischemic changes of his digits of both feet and right hand. OBJECTIVE: VITAL SIGNS: Blood pressure 146/89, pulse 102, respirations 20, and afebrile. NECK: Supple. Jugular venous pressure is grossly normal. LUNGS: Clear. CARDIAC: Regular rhythm and rate. Normal S1, S2 with a fourth heart sound. ABDOMEN: Soft and nontender. EXTREMITIES: Reveal no edema. The digits of the right hand and both feet have gangrenous changes distally. LABORATORY AND DIAGNOSTIC DATA: Monitored rhythm remains sinus with rare atrial ectopy. White count 9.4, hemoglobin 8.4. Potassium 4.3, sodium 155, bicarbonate 25, BUN 19, and creatinine 1.3. CK down to 1588. IMPRESSION: 1. Gangrene and ischemia of the digits. 2. Severe hypernatremia and dehydration with hyperchloremia, persisting. 3. Metabolic acidosis, resolved. 4. Rhabdomyolysis, resolving. 5. Severe protein-calorie malnutrition. 6. Secondary sinus tachycardia, resolved. 7. Sepsis with recovered shock. PLAN: 1. Antibiotics swallow eval. 2. Maintain adequate peripheral perfusion pressures. 3. Insulin coverage. 4. Antimicrobials. 5. Free water replacement by IV and G-tube route. Morales Serrano M.D. : AUDREY JOB#: [id number] CC:
[2016-06-16 04:00] VITALS: BP 143/90
[2016-06-16] MEDS: CEFTAROLINE IV SCH ×2 (05:07→17:19)
[2016-06-16] MEDS: NS IV SCH ×2 (05:07→17:19)
[2016-06-16 07:09] LABS: BASOPHILS % (AUTO) 0.7 % (0.0-2.0); EOSINOPHILS % (AUTO) 2.1 % (0.0-3.0); LYMPHOCYTES % (AUTO) 14.9 % (20.0-45.0); MEAN CORPUSCULAR HGB CONC 30.8 G/DL (32.0-36.0); MEAN CORPUSCULAR VOLUME 81 FL (80-99); MEAN PLATELET VOLUME 8.4 FL (6.5-10.1); MONOCYTES % (AUTO) 4.7 % (1.0-10.0); NEUTROPHILS % (AUTO) 77.6 % (45.0-75.0); PLATELET COUNT 252 K/UL (150-450); RED BLOOD COUNT 3.36 M/UL (4.70-6.10); RED CELL DISTRIBUTION WIDTH 18.3 % (11.6-14.8); WHITE BLOOD COUNT 9.2 K/UL (4.8-10.8)
[2016-06-16 07:26] LABS: ALBUMIN/GLOBULIN RATIO 0.5 (1.0-2.7); CALCIUM 8.8 mg/dL (8.6-10.2); CREATININE 1.3 mg/dL (0.7-1.2); GLOMERULAR FILTRATION RATE 56.7 mL/min (>60); POTASSIUM 3.8 mEQ/L (3.4-4.9); TOTAL PROTEIN 6.9 g/dL (6.6-8.7)
--- NOTE | 2016-06-16 07:49 | General Progress Note ---
Assessment/Plan Problem List: (1) Acute renal failure ICD Codes: N17.9 - Acute kidney failure, unspecified SNOMED: 59303339 Qualifiers: Qualified Codes: N17.0 - Acute kidney failure with tubular necrosis (2) Encephalopathy ICD Codes: G93.40 - Encephalopathy, unspecified SNOMED: 02091927, 036163191 (3) DKA (diabetic ketoacidoses) ICD Codes: E13.10 - Other specified diabetes mellitus with ketoacidosis without coma SNOMED: 033507171, 47459669 Qualifiers: Qualified Codes: E13.11 - Other specified diabetes mellitus with ketoacidosis with coma (4) Leukocytosis ICD Codes: D72.829 - Elevated white blood cell count, unspecified SNOMED: 833526609, 800761062 Qualifiers: Qualified Codes: D72.829 - Elevated white blood cell count, unspecified (5) Altered level of consciousness ICD Codes: R40.4 - Transient alteration of awareness SNOMED: 9064910 Status: stable, progressing Assessment/Plan off ivf insulin coverage IV abx per ID resp care/o2 ngt feeds. gi eval for possible gt no transfusion per family monitor h/h. high dose epo and iron infusion will ultimately need amputation of fingers and toes/feet. will d/w plastics and podiatry remain critical and guarded Subjective ROS Limited/Unobtainable: Yes Constitutional: Reports: malaise, weakness HEENT: Reports: no symptoms Cardiovascular: Reports: no symptoms Respiratory: Reports: no symptoms Gastrointestinal/Abdominal: Reports: difficulty swallowing Genitourinary: Reports: no symptoms Neurologic/Psychiatric: Reports: pre-existing deficit Endocrine: Reports: no symptoms Hematologic/Lymphatic: Reports: anemia Allergies: Coded Allergies: No Known Allergies (Unverified , 05/30/16) All Systems: reviewed and negative except above Subjective transferred to med surg. no real change. remains confused but more alert. answers some simple questions and follows simple commands. on ivf and iv abx. pulled out ngt. replaced now. in restraints. +ngt feeds. ischemic feet and digits unchanged. swallow eval pending Objective Last 24 Hour Vital Signs Date Time Temp Pulse Resp B/P Pulse Ox O2 Delivery O2 Flow Rate FiO2 06/16/16 06:00 104 06/16/16 04:00 99.3 120 20 143/90 95 Nasal Cannula 2.0 06/15/16 23:46 97.8 118 20 132/82 95 Room Air 06/15/16 20:48 100 148/94 06/15/16 19:00 99.5 100 20 148/94 93 Nasal Cannula 2.0 06/15/16 19:00 97 Nasal Cannula 2.0 28 06/15/16 19:00 Nasal Cannula 2.0 28 06/15/16 16:00 98.8 99 20 125/98 92 Nasal Cannula 2.0 06/15/16 11:28 97.1 89 20 139/87 100 Nasal Cannula 2.0 06/15/16 09:33 95 141/81 06/15/16 09:30 Nasal Cannula 2.0 28 06/15/16 09:30 97 Nasal Cannula 2.0 28 06/15/16 08:13 97.3 95 20 141/81 94 Nasal Cannula 2.0 06/15/16 08:00 100 Intake and Output 06/15/16 06/16/16 19:00 07:00 Intake Total 1063 ml 2110 ml Output Total 1150 ml 500 ml Balance -87 ml 1610 ml Free Water 400 ml IV Total 1063 ml 1590 ml Tube Feeding 120 ml Output Urine Total 1150 ml 500 ml Laboratory Tests 06/16/16 06:15: White Blood Count 9.2, Red Blood Count 3.36L, Hemoglobin 8.4L, Hematocrit 27.2L , Mean Corpuscular Volume 81, Mean Corpuscular Hemoglobin 25.0L, Mean Corpuscular Hemoglobin Concent 30.8L, Red Cell Distribution Width 18.3H, Platelet Count 252, Mean Platelet Volume 8.4, Neutrophils (%) (Auto) 77.6H, Lymphocytes (%) (Auto) 14.9L, Monocytes (%) (Auto) 4.7, Eosinophils (%) (Auto) 2.1, Basophils (%) (Auto) 0.7, Sodium Level 152H, Potassium Level 3.8, Chloride Level 114H, Carbon Dioxide Level 24, Anion Gap 14, Blood Urea Nitrogen 21, Creatinine 1.3H, Estimat Glomerular Filtration Rate 56.7, Glucose Level 123H, Calcium Level 8.8, Total Bilirubin 0.5, Aspartate Amino Transf (AST/SGOT) 49H, Alanine Aminotransferase (ALT/SGPT) 104H, Alkaline Phosphatase 161H, Total Creatine Kinase 855H, Total Protein 6.9, Albumin 2.3L, Globulin 4.6, Albumin/ Globulin Ratio 0.5L Height (Feet): 5 Height (Inches): 11.00 Weight (Pounds): 165 Objective eneral Appearance: WD/WN, alert, confused. NGT in place Neck: supple Cardiovascular: regular rhythm Respiratory/Chest: lungs clear Abdomen: normal bowel sounds, non tender, soft, no organomegaly, no mass Edema: mild edema Neurologic: alert Skin: cyanotic - right hand fingers. cyanotic toes/forefoot bilaterally. + blisters DARYN JEREZ Jun 16, 2016 07:49
[2016-06-16 08:00] VITALS: BP 133/93
--- NOTE | 2016-06-16 08:59 | General Progress Note ---
Assessment/Plan Assessment/Plan Assessment: 1. Leukocytosis- has improved 2. Anemia 2/2 chronic disease - patient is JW, refusing blood transfusions, is on epogen and iron 3. Bilateral DVTs of the lower extremities - is s/p ivc fitler (retrievable) given anemia and thrombocytopenia 4. Thrombocytopenia - likely 2/2 infection and consumptive state -markedly improved, now >150k 5. Toe ischemia and microvascular ischemia 6. ARF due to severe rhabdo- improving 7. Dehydration-- improved 8. Shock--improved 9. DKA-improved Recommendations: - Continue epogen - Continue IV iron - Refusing blood products - Hgb goal >7 - Plt goal >10k - DIC panel has been reviewed - Abx to continue per ID - DW Staff Sincerely, Dario Henderson MD Subjective Constitutional: Reports: no symptoms HEENT: Reports: no symptoms Cardiovascular: Reports: no symptoms Respiratory: Reports: no symptoms Gastrointestinal/Abdominal: Reports: no symptoms Genitourinary: Reports: no symptoms Neurologic/Psychiatric: Reports: no symptoms Endocrine: Reports: no symptoms Hematologic/Lymphatic: Reports: no symptoms Allergies: Coded Allergies: No Known Allergies (Unverified , 05/30/16) Subjective stable, no events overnight, cbc has been reviewed Objective Last 24 Hour Vital Signs Date Time Temp Pulse Resp B/P Pulse Ox O2 Delivery O2 Flow Rate FiO2 06/16/16 08:00 98.4 117 18 133/93 100 Room Air 06/16/16 06:00 104 06/16/16 04:00 99.3 120 20 143/90 95 Nasal Cannula 2.0 06/15/16 23:46 97.8 118 20 132/82 95 Room Air 06/15/16 20:48 100 148/94 06/15/16 19:00 99.5 100 20 148/94 93 Nasal Cannula 2.0 06/15/16 19:00 97 Nasal Cannula 2.0 28 06/15/16 19:00 Nasal Cannula 2.0 28 06/15/16 16:00 98.8 99 20 125/98 92 Nasal Cannula 2.0 06/15/16 11:28 97.1 89 20 139/87 100 Nasal Cannula 2.0 06/15/16 09:33 95 141/81 06/15/16 09:30 Nasal Cannula 2.0 28 06/15/16 09:30 97 Nasal Cannula 2.0 28 Intake and Output 06/15/16 06/16/16 19:00 07:00 Intake Total 1063 ml 2110 ml Output Total 1150 ml 500 ml Balance -87 ml 1610 ml Free Water 400 ml IV Total 1063 ml 1590 ml Tube Feeding 120 ml Output Urine Total 1150 ml 500 ml Laboratory Tests 06/16/16 06:15: White Blood Count 9.2, Red Blood Count 3.36L, Hemoglobin 8.4L, Hematocrit 27.2L , Mean Corpuscular Volume 81, Mean Corpuscular Hemoglobin 25.0L, Mean Corpuscular Hemoglobin Concent 30.8L, Red Cell Distribution Width 18.3H, Platelet Count 252, Mean Platelet Volume 8.4, Neutrophils (%) (Auto) 77.6H, Lymphocytes (%) (Auto) 14.9L, Monocytes (%) (Auto) 4.7, Eosinophils (%) (Auto) 2.1, Basophils (%) (Auto) 0.7, Sodium Level 152H, Potassium Level 3.8, Chloride Level 114H, Carbon Dioxide Level 24, Anion Gap 14, Blood Urea Nitrogen 21, Creatinine 1.3H, Estimat Glomerular Filtration Rate 56.7, Glucose Level 123H, Calcium Level 8.8, Total Bilirubin 0.5, Aspartate Amino Transf (AST/SGOT) 49H, Alanine Aminotransferase (ALT/SGPT) 104H, Alkaline Phosphatase 161H, Total Creatine Kinase 855H, Total Protein 6.9, Albumin 2.3L, Globulin 4.6, Albumin/ Globulin Ratio 0.5L Height (Feet): 5 Height (Inches): 11.00 Weight (Pounds): 165 General Appearance: no apparent distress EENT: TMs normal Neck: supple Cardiovascular: regular rhythm Respiratory/Chest: normal breath sounds Abdomen: soft Extremities: normal inspection Edema: mild edema Neurologic: alert Skin: warm/dry Dario Henderson Jun 16, 2016 08:59
[2016-06-16] MEDS ORDERED: Fluconazole 100mg tab GT SCH (09:00)
[2016-06-16] MEDS: Metoprolol 50mg tab NG SCH ×2 (10:37→21:04)
[2016-06-16] MEDS: Docusate 100mg tablet NG SCH ×2 (10:37→17:19)
[2016-06-16] MEDS: KCl 10% 40mEq/30ml liquid NG SCH ×2 (10:37→21:05)
[2016-06-16] MEDS: Levemir Flexpen SUBQ SCH ×2 (10:42→21:06)
--- NOTE | 2016-06-16 11:13 | Infectious Diseases Prog Note ---
"Assessment/Plan Assessment/Plan antibiotics : ceftaroline, fluconazole A 1. leucocytosis improving 2. renal failure improving 3. nasal MRSA colonization 4. increased LFT 5. thrombocytopenia 6. DKA 7. fungal UTI 8. MRSA | coag neg staph sepsis 9. cyanotic toes and right fingers P 1. continue ceftaroline 2. continue fluconazole 2 more days 3. will follow up cultures 4. plan per podiatry Subjective ROS Limited/Unobtainable: Yes Allergies: Coded Allergies: No Known Allergies (Unverified , 05/30/16) Objective Vital Signs Last 24 Hour Vital Signs Date Time Temp Pulse Resp B/P Pulse Ox O2 Delivery O2 Flow Rate FiO2 06/16/16 10:37 117 133/93 06/16/16 08:00 98.4 117 18 133/93 100 Room Air 06/16/16 06:00 104 06/16/16 04:00 99.3 120 20 143/90 95 Nasal Cannula 2.0 06/15/16 23:46 97.8 118 20 132/82 95 Room Air 06/15/16 20:48 100 148/94 06/15/16 19:00 99.5 100 20 148/94 93 Nasal Cannula 2.0 06/15/16 19:00 97 Nasal Cannula 2.0 28 06/15/16 19:00 Nasal Cannula 2.0 28 06/15/16 16:00 98.8 99 20 125/98 92 Nasal Cannula 2.0 06/15/16 11:28 97.1 89 20 139/87 100 Nasal Cannula 2.0 Height (Feet): 5 Height (Inches): 11.00 Weight (Pounds): 165 Respiratory/Chest: lungs clear Cardiovascular: normal rate, regular rhythm, no gallop/murmur Abdomen: soft, non tender Extremities: other - + edema, toes cyanotic, right fingers cyanotic Laboratory Tests Test 06/16/16 06:15 White Blood Count 9.2 K/UL (4.8-10.8) Red Blood Count 3.36 M/UL (4.70-6.10) L Hemoglobin 8.4 G/DL (14.2-18.0) L Hematocrit 27.2 % (42.0-52.0) L Mean Corpuscular Volume 81 FL (80-99) Mean Corpuscular Hemoglobin 25.0 PG (27.0-31.0) L Mean Corpuscular Hemoglobin Concent 30.8 G/DL (32.0-36.0) L Red Cell Distribution Width 18.3 % (11.6-14.8) H Platelet Count 252 K/UL (150-450) Mean Platelet Volume 8.4 FL (6.5-10.1) Neutrophils (%) (Auto) 77.6 % (45.0-75.0) H Lymphocytes (%) (Auto) 14.9 % (20.0-45.0) L Monocytes (%) (Auto) 4.7 % (1.0-10.0) Eosinophils (%) (Auto) 2.1 % (0.0-3.0) Basophils (%) (Auto) 0.7 % (0.0-2.0) Sodium Level 152 mEQ/L (135-145) H Potassium Level 3.8 mEQ/L (3.4-4.9) Chloride Level 114 mEQ/L (98-107) H Carbon Dioxide Level 24 mEQ/L (20-30) Anion Gap 14 (5-15) Blood Urea Nitrogen 21 mg/dL (7-23) Creatinine 1.3 mg/dL (0.7-1.2) H Estimat Glomerular Filtration Rate 56.7 mL/min (>60) Glucose Level 123 mg/dL (74-106) H Calcium Level 8.8 mg/dL (8.6-10.2) Total Bilirubin 0.5 mg/dL (0.0-1.2) Aspartate Amino Transf (AST/SGOT) 49 U/L (5-40) H Alanine Aminotransferase (ALT/SGPT) 104 U/L (3-41) H Alkaline Phosphatase 161 U/L (40-129) H Total Creatine Kinase 855 U/L (38-174) H Total Protein 6.9 g/dL (6.6-8.7) Albumin 2.3 g/dL (3.5-5.2) L Globulin 4.6 g/dL Albumin/Globulin Ratio 0.5 (1.0-2.7) L COLTON GONZALEZ Jun 16, 2016 11:13"
[2016-06-16 12:00] VITALS: BP 137/90
[2016-06-16] MEDS: Fluconazole 100mg tab NG SCH (13:49)
--- NOTE | 2016-06-16 14:00 | Diagnostic Imaging Report ---
Indications: Nasogastric tube placement Technique: Portable supine AP abdomen Findings: Comparison: None Nasogastric tube not identified. Most of pelvis excluded from image. Visualized bowel gas pattern unremarkable. IVC filter. Sternal wires, heart valve prosthesis. IMPRESSION: Nonvisualization of nasogastric tube, position indeterminate Chronic changes as described This correlates with [facility] preliminary report.
--- NOTE | 2016-06-16 14:00 | Diagnostic Imaging Report ---
Indications: Nasogastric tube placement Technique: Portable AP chest Findings: Comparison: 06/10/16 Nasogastric tube tip projects over gastric air limit. Proximal port in region of esophagogastric junction. Lungs and pleura are grossly clear. Cardiomediastinal silhouette stable. IMPRESSION: Nasogastric tube in stomach, but somewhat proximal in position. Recommend advancement by 10 cm. No evidence of acute pulmonary disease This correlates with [facility] preliminary report.
[2016-06-16 16:00] VITALS: BP 135/79
--- NOTE | 2016-06-16 18:46 | Nephrology Progress Note ---
Assessment/Plan Problem List: (1) Hypovolemic shock (2) Metabolic acidosis (3) Hypernatremia (4) Altered level of consciousness (5) Acute renal failure (6) Encephalopathy (7) Ischemia of digits of hand (8) Ischemia of extremity (9) Rhabdomyolysis Plan creatinine 1.4 04/2016 continue hydration,,serial lytes, reduce iv rate, grave prognosis , severe rhabdo iv with bicarb, ck lower can stop bicarb [place] improving replace k, iv adjusted--hypotonic fluids Subjective ROS Limited/Unobtainable: Yes Objective Objective Last 24 Hour Vital Signs Date Time Temp Pulse Resp B/P Pulse Ox O2 Delivery O2 Flow Rate FiO2 06/16/16 16:00 98.1 92 20 135/79 Room Air 06/16/16 12:00 98.6 93 18 137/90 99 Nasal Cannula 2.0 06/16/16 10:37 117 133/93 06/16/16 08:00 98.4 117 18 133/93 100 Room Air 06/16/16 06:00 104 06/16/16 04:00 99.3 120 20 143/90 95 Nasal Cannula 2.0 06/15/16 23:46 97.8 118 20 132/82 95 Room Air 06/15/16 20:48 100 148/94 06/15/16 19:00 99.5 100 20 148/94 93 Nasal Cannula 2.0 06/15/16 19:00 97 Nasal Cannula 2.0 28 06/15/16 19:00 Nasal Cannula 2.0 28 Intake and Output 06/15/16 06/16/16 19:00 07:00 Intake Total 1543 ml 2110 ml Output Total 1150 ml 500 ml Balance 393 ml 1610 ml Free Water 400 ml 400 ml IV Total 1063 ml 1590 ml Tube Feeding 80 ml 120 ml Output Urine Total 1150 ml 500 ml Laboratory Tests 06/16/16 06:15: White Blood Count 9.2, Red Blood Count 3.36L, Hemoglobin 8.4L, Hematocrit 27.2L , Mean Corpuscular Volume 81, Mean Corpuscular Hemoglobin 25.0L, Mean Corpuscular Hemoglobin Concent 30.8L, Red Cell Distribution Width 18.3H, Platelet Count 252, Mean Platelet Volume 8.4, Neutrophils (%) (Auto) 77.6H, Lymphocytes (%) (Auto) 14.9L, Monocytes (%) (Auto) 4.7, Eosinophils (%) (Auto) 2.1, Basophils (%) (Auto) 0.7, Sodium Level 152H, Potassium Level 3.8, Chloride Level 114H, Carbon Dioxide Level 24, Anion Gap 14, Blood Urea Nitrogen 21, Creatinine 1.3H, Estimat Glomerular Filtration Rate 56.7, Glucose Level 123H, Calcium Level 8.8, Total Bilirubin 0.5, Aspartate Amino Transf (AST/SGOT) 49H, Alanine Aminotransferase (ALT/SGPT) 104H, Alkaline Phosphatase 161H, Total Creatine Kinase 855H, Total Protein 6.9, Albumin 2.3L, Globulin 4.6, Albumin/ Globulin Ratio 0.5L Height (Feet): 5 Height (Inches): 11.00 Weight (Pounds): 165 General Appearance: lethargic EENT: normal ENT inspection Neck: normal alignment Cardiovascular: regular rhythm Respiratory/Chest: lungs clear, normal breath sounds Abdomen: non tender Extremities: moderate edema, other - gangrene digits SHASTA REDDY Jun 16, 2016 18:46
[2016-06-16 19:00] VITALS: BP 132/82
--- NOTE | 2016-06-16 19:46 | General Progress Note ---
Assessment/Plan Assessment/Plan Assessment (1) Hypovolemic shock (2) Metabolic acidosis (3) Hypernatremia (4) Altered level of consciousness (5) Acute renal failure (6) Encephalopathy (7) Ischemia of digits of hand (8) Ischemia of extremity (9) Rhabdomyolysis Recommendations - continue NGT feeds over weekend - re-evaluate swallow function Sunday - if continues to improve, may not need PEG placement Thank you Molly Mendoza MD Subjective Allergies: Coded Allergies: No Known Allergies (Unverified , 05/30/16) Objective Last 24 Hour Vital Signs Date Time Temp Pulse Resp B/P Pulse Ox O2 Delivery O2 Flow Rate FiO2 06/16/16 16:00 98.1 92 20 135/79 Room Air 06/16/16 12:00 98.6 93 18 137/90 99 Nasal Cannula 2.0 06/16/16 10:37 117 133/93 06/16/16 08:00 98.4 117 18 133/93 100 Room Air 06/16/16 06:00 104 06/16/16 04:00 99.3 120 20 143/90 95 Nasal Cannula 2.0 06/15/16 23:46 97.8 118 20 132/82 95 Room Air 06/15/16 20:48 100 148/94 Intake and Output 06/15/16 06/16/16 19:00 07:00 Intake Total 1543 ml 2110 ml Output Total 1150 ml 500 ml Balance 393 ml 1610 ml Free Water 400 ml 400 ml IV Total 1063 ml 1590 ml Tube Feeding 80 ml 120 ml Output Urine Total 1150 ml 500 ml Laboratory Tests 06/16/16 06:15: White Blood Count 9.2, Red Blood Count 3.36L, Hemoglobin 8.4L, Hematocrit 27.2L , Mean Corpuscular Volume 81, Mean Corpuscular Hemoglobin 25.0L, Mean Corpuscular Hemoglobin Concent 30.8L, Red Cell Distribution Width 18.3H, Platelet Count 252, Mean Platelet Volume 8.4, Neutrophils (%) (Auto) 77.6H, Lymphocytes (%) (Auto) 14.9L, Monocytes (%) (Auto) 4.7, Eosinophils (%) (Auto) 2.1, Basophils (%) (Auto) 0.7, Sodium Level 152H, Potassium Level 3.8, Chloride Level 114H, Carbon Dioxide Level 24, Anion Gap 14, Blood Urea Nitrogen 21, Creatinine 1.3H, Estimat Glomerular Filtration Rate 56.7, Glucose Level 123H, Calcium Level 8.8, Total Bilirubin 0.5, Aspartate Amino Transf (AST/SGOT) 49H, Alanine Aminotransferase (ALT/SGPT) 104H, Alkaline Phosphatase 161H, Total Creatine Kinase 855H, Total Protein 6.9, Albumin 2.3L, Globulin 4.6, Albumin/ Globulin Ratio 0.5L Height (Feet): 5 Height (Inches): 11.00 Weight (Pounds): 165 MOLLY MENDOZA Jun 16, 2016 19:46
[2016-06-16] MEDS: Epogen (for non ESRD use) SUBQ SCH (21:04)
--- NOTE | 2016-06-16 22:00 | Podiatric Progress Note ---
Assessment/Plan Patient Shoaib De Anda is a 56 year old male who was admitted on Jun 07, 2016 at 18:35 with DKA Problems: (1) Ischemia of foot (2) Leukocytosis (3) DKA (diabetic ketoacidoses) (4) Altered level of consciousness (5) Acute renal failure (6) Post traumatic encephalopathy Assessment/Plan - Continue monitoring of bilateral foot daily. Bilateral feet with bulla formation. However, left foot blister has auto lanced. Monitor for signs of infection - Keep bilateral feet warm - Offload heels - Continue daily dressing changes for left foot Subjective Reason for consult Bilateral foot gangrene Allergies: Coded Allergies: No Known Allergies (Unverified , 05/30/16) Subjective Patient is unable to communicate effectively Objective Exam Last 24 Hour Vital Signs Date Time Temp Pulse Resp B/P Pulse Ox O2 Delivery O2 Flow Rate FiO2 06/16/16 21:04 108 132/82 06/16/16 19:20 96 Nasal Cannula 2.0 28 06/16/16 19:00 Nasal Cannula 2.0 28 06/16/16 19:00 98.6 108 18 132/82 Nasal Cannula 2.0 06/16/16 16:00 98.1 92 20 135/79 Room Air 06/16/16 12:00 98.6 93 18 137/90 99 Nasal Cannula 2.0 06/16/16 10:37 117 133/93 06/16/16 08:00 98.4 117 18 133/93 100 Room Air 06/16/16 06:00 104 06/16/16 04:00 99.3 120 20 143/90 95 Nasal Cannula 2.0 06/15/16 23:46 97.8 118 20 132/82 95 Room Air Laboratory Tests Test 06/16/16 06:15 White Blood Count 9.2 K/UL (4.8-10.8) Red Blood Count 3.36 M/UL (4.70-6.10) L Hemoglobin 8.4 G/DL (14.2-18.0) L Hematocrit 27.2 % (42.0-52.0) L Mean Corpuscular Volume 81 FL (80-99) Mean Corpuscular Hemoglobin 25.0 PG (27.0-31.0) L Mean Corpuscular Hemoglobin Concent 30.8 G/DL (32.0-36.0) L Red Cell Distribution Width 18.3 % (11.6-14.8) H Platelet Count 252 K/UL (150-450) Mean Platelet Volume 8.4 FL (6.5-10.1) Neutrophils (%) (Auto) 77.6 % (45.0-75.0) H Lymphocytes (%) (Auto) 14.9 % (20.0-45.0) L Monocytes (%) (Auto) 4.7 % (1.0-10.0) Eosinophils (%) (Auto) 2.1 % (0.0-3.0) Basophils (%) (Auto) 0.7 % (0.0-2.0) Sodium Level 152 mEQ/L (135-145) H Potassium Level 3.8 mEQ/L (3.4-4.9) Chloride Level 114 mEQ/L (98-107) H Carbon Dioxide Level 24 mEQ/L (20-30) Anion Gap 14 (5-15) Blood Urea Nitrogen 21 mg/dL (7-23) Creatinine 1.3 mg/dL (0.7-1.2) H Estimat Glomerular Filtration Rate 56.7 mL/min (>60) Glucose Level 123 mg/dL (74-106) H Calcium Level 8.8 mg/dL (8.6-10.2) Total Bilirubin 0.5 mg/dL (0.0-1.2) Aspartate Amino Transf (AST/SGOT) 49 U/L (5-40) H Alanine Aminotransferase (ALT/SGPT) 104 U/L (3-41) H Alkaline Phosphatase 161 U/L (40-129) H Total Creatine Kinase 855 U/L (38-174) H Total Protein 6.9 g/dL (6.6-8.7) Albumin 2.3 g/dL (3.5-5.2) L Globulin 4.6 g/dL Albumin/Globulin Ratio 0.5 (1.0-2.7) L Microbiology Date/Time Source Procedure Growth Status 06/10/16 21:15 Blood Blood Culture - Final Staphylococcus Aureus - Mrsa Staphylococcus Sp Coag Neg Complete 06/07/16 20:45 Nasal Nares MRSA Culture - Final Staphylococcus Aureus - Mrsa Complete 06/10/16 12:30 Urine,Clean Catch Urine Culture - Final Eboni Albicans Complete 06/07/16 20:45 Rectum VRE Culture - Final Enterococcus Faecalis - Vre Complete Exam Narrative Left foot with cyanotic appearing forefoot with a history of bulla that has auto lanced. There is serous drainage noted and macerated exfoliating skin present. No purulence or malodor noted. Right foot with cyanotic appearing toes as well. However, left foot is worse than right. There is no clear demarkation of the viable and non viable tissue currently Lang Klein DPM Jun 16, 2016 22:00
[2016-06-17] VITALS: BP 133/83
[2016-06-17] MEDS: NovoLOG Insulin Flexpen SUBQ SCH ×4 (01:00→18:54)
[2016-06-17 04:00] VITALS: BP 119/76
[2016-06-17] MEDS: NS IV SCH ×2 (06:26→18:34)
[2016-06-17] MEDS: CEFTAROLINE IV SCH ×2 (06:26→18:34)
--- NOTE | 2016-06-17 07:08 | Consultation ---
DATE OF CONSULTATION: 06/16/2016 GASTROENTEROLOGY CONSULTATION CHIEF COMPLAINT: I was asked to see this patient by Dr. Raul Del Cid for evaluation of possible gastrostomy tube placement. HISTORY OF PRESENT ILLNESS: This patient is an unfortunate 56-year-old man, who initially was admitted to emergency room about nine days ago he has multiple medical problems and has been seen by multiple consultants. He has had a complex hospital course available in his chart. The patient has severe hypoxia, diabetic ketoacidosis and altered mental status. The patient is now being fed via nasogastric tube. He is in restraints due to his confusion which are improving. His overall condition is better than before. He has been seen by speech therapist and further evaluation as well as functions are being planned for Sunday. The patient is still unable to provide any history as he is coherently. Most of the information available from the chart. PAST MEDICAL HISTORY: History of renal failure, history of thrombocytopenia, diabetic ketoacidosis, peripheral vascular disease with regional ischemia, renal failure, and rhabdomyolysis. SOCIAL HISTORY: Unobtainable from the patient. FAMILY HISTORY: Unavailable. REVIEW OF SYSTEMS: Unobtainable from the patient. PHYSICAL EXAMINATION: GENERAL: The patient is a debilitated confused man, seen in his room, with restraints who is speaking regarding tube feeding. HEENT: Normocephalic and atraumatic. Nasogastric tube could not be seen. NECK: Appears supple. CHEST: Reveals scattered rhonchi. CARDIOVASCULAR: Revealed a regular rate. ABDOMEN: Soft. Good bowel sounds. There is no organomegaly. EXTREMITIES: Revealed no edema. NEUROLOGIC: Notable for delirium. LABORATORY DATA: Laboratory complex hospital course with significant . He has delirium and will have . He appears to be improving and likely able to swallow safely. I suspect then the gastrostomy access. RECOMMENDATION: 1. . 2. Continued nasogastric tube feedings over the weekend. 3. support Sunday. Thank you for asking me to participate in the care of this patient. Molly Mendoza M.D. DR: BRAULIO JOB#: [id number] CC:
--- NOTE | 2016-06-17 07:49 | General Progress Note ---
Assessment/Plan Problem List: (1) Acute renal failure ICD Codes: N17.9 - Acute kidney failure, unspecified SNOMED: 82985619 Qualifiers: Qualified Codes: N17.0 - Acute kidney failure with tubular necrosis (2) Encephalopathy ICD Codes: G93.40 - Encephalopathy, unspecified SNOMED: 60176988, 644547085 (3) DKA (diabetic ketoacidoses) ICD Codes: E13.10 - Other specified diabetes mellitus with ketoacidosis without coma SNOMED: 274748943, 38314014 Qualifiers: Qualified Codes: E13.11 - Other specified diabetes mellitus with ketoacidosis with coma (4) Leukocytosis ICD Codes: D72.829 - Elevated white blood cell count, unspecified SNOMED: 187263965, 923615201 Qualifiers: Qualified Codes: D72.829 - Elevated white blood cell count, unspecified (5) Altered level of consciousness ICD Codes: R40.4 - Transient alteration of awareness SNOMED: 4841259 Assessment/Plan IVF per renal diabetes rx wound care antiplt rx abx per ID repeat swallow eval sunday possible GT if fails Subjective ROS Limited/Unobtainable: No Constitutional: Reports: malaise, weakness HEENT: Reports: no symptoms Cardiovascular: Reports: no symptoms Respiratory: Reports: no symptoms Gastrointestinal/Abdominal: Reports: no symptoms Genitourinary: Reports: no symptoms Neurologic/Psychiatric: Reports: pre-existing deficit Endocrine: Reports: no symptoms Hematologic/Lymphatic: Reports: no symptoms Allergies: Coded Allergies: No Known Allergies (Unverified , 05/30/16) All Systems: reviewed and negative except above Subjective no events. gi appreciated. d/w plastic. no surgical intervention recommended at this time. overall more alert. unclear of pts baseline MS Objective Last 24 Hour Vital Signs Date Time Temp Pulse Resp B/P Pulse Ox O2 Delivery O2 Flow Rate FiO2 06/17/16 04:00 97.7 94 20 119/76 97 Nasal Cannula 2.0 06/17/16 00:00 97.7 90 20 133/83 90 Nasal Cannula 2.0 06/16/16 21:04 108 132/82 06/16/16 19:20 96 Nasal Cannula 2.0 28 06/16/16 19:00 Nasal Cannula 2.0 28 06/16/16 19:00 98.6 108 18 132/82 Nasal Cannula 2.0 06/16/16 16:00 98.1 92 20 135/79 Room Air 06/16/16 12:00 98.6 93 18 137/90 99 Nasal Cannula 2.0 06/16/16 10:37 117 133/93 06/16/16 08:00 98.4 117 18 133/93 100 Room Air Intake and Output 06/16/16 06/17/16 19:00 07:00 Intake Total 1025 ml 1565 ml Output Total 560 ml 2050 ml Balance 465 ml -485 ml Free Water 400 ml 600 ml IV Total 525 ml 825 ml Tube Feeding 100 ml 140 ml Output Urine Total 560 ml 2050 ml Laboratory Tests 06/17/16 04:55: Sodium Level [Pending], Potassium Level [Pending], Chloride Level [Pending], Carbon Dioxide Level [Pending], Blood Urea Nitrogen [Pending], Creatinine [ Pending], Estimat Glomerular Filtration Rate [Pending], Glucose Level [Pending] , Calcium Level [Pending], Total Creatine Kinase [Pending] Height (Feet): 5 Height (Inches): 11.00 Weight (Pounds): 165 Objective eneral Appearance: WD/WN, alert, confused. NGT in place Neck: supple Cardiovascular: regular rhythm Respiratory/Chest: lungs clear Abdomen: normal bowel sounds, non tender, soft, no organomegaly, no mass Edema: mild edema Neurologic: alert Skin: cyanotic - right hand fingers. cyanotic toes/forefoot bilaterally. + blisters DARYN JEREZ Jun 17, 2016 07:49
--- NOTE | 2016-06-17 07:52 | General Progress Note ---
Assessment/Plan Assessment/Plan Assessment (1) Hypovolemic shock (2) Metabolic acidosis (3) Hypernatremia (4) Altered level of consciousness (5) Acute renal failure (6) Encephalopathy (7) Ischemia of digits of hand (8) Ischemia of extremity (9) Rhabdomyolysis Recommendations - continue NGT feeds over weekend - re-evaluate swallow function Sunday - if continues to improve, may not need PEG placement Subjective ROS Limited/Unobtainable: No Allergies: Coded Allergies: No Known Allergies (Unverified , 05/30/16) Objective Last 24 Hour Vital Signs Date Time Temp Pulse Resp B/P Pulse Ox O2 Delivery O2 Flow Rate FiO2 06/17/16 04:00 97.7 94 20 119/76 97 Nasal Cannula 2.0 06/17/16 00:00 97.7 90 20 133/83 90 Nasal Cannula 2.0 06/16/16 21:04 108 132/82 06/16/16 19:20 96 Nasal Cannula 2.0 28 06/16/16 19:00 Nasal Cannula 2.0 28 06/16/16 19:00 98.6 108 18 132/82 Nasal Cannula 2.0 06/16/16 16:00 98.1 92 20 135/79 Room Air 06/16/16 12:00 98.6 93 18 137/90 99 Nasal Cannula 2.0 06/16/16 10:37 117 133/93 06/16/16 08:00 98.4 117 18 133/93 100 Room Air Intake and Output 06/16/16 06/17/16 19:00 07:00 Intake Total 1025 ml 1565 ml Output Total 560 ml 2050 ml Balance 465 ml -485 ml Free Water 400 ml 600 ml IV Total 525 ml 825 ml Tube Feeding 100 ml 140 ml Output Urine Total 560 ml 2050 ml Laboratory Tests 06/17/16 04:55: Sodium Level [Pending], Potassium Level [Pending], Chloride Level [Pending], Carbon Dioxide Level [Pending], Blood Urea Nitrogen [Pending], Creatinine [ Pending], Estimat Glomerular Filtration Rate [Pending], Glucose Level [Pending] , Calcium Level [Pending], Total Creatine Kinase [Pending] Height (Feet): 5 Height (Inches): 11.00 Weight (Pounds): 165 General Appearance: no apparent distress EENT: normal ENT inspection Neck: supple Cardiovascular: normal rate Respiratory/Chest: decreased breath sounds Abdomen: normal bowel sounds, non tender, soft Extremities: non-tender YO PINO Jun 17, 2016 07:52
[2016-06-17 07:57] LABS: ANION GAP 13 (5-15); CALCIUM 8.9 mg/dL (8.6-10.2); CARBON DIOXIDE 25 mEQ/L (20-30); CHLORIDE 112 mEQ/L (98-107); CREATININE 1.2 mg/dL (0.7-1.2); GLOMERULAR FILTRATION RATE > 60 mL/min (>60); HEMOLYSIS 0; POTASSIUM 3.7 mEQ/L (3.4-4.9); SODIUM 150 mEQ/L (135-145)
[2016-06-17 08:13] VITALS: BP 136/81
[2016-06-17] MEDS: Levemir Flexpen SUBQ SCH ×2 (09:10→21:21)
[2016-06-17] MEDS: KCl 10% 40mEq/30ml liquid NG SCH ×2 (09:10→21:19)
[2016-06-17] MEDS: Metoprolol 50mg tab NG SCH ×2 (09:11→21:18)
[2016-06-17] MEDS: Fluconazole 100mg tab NG SCH (09:11)
[2016-06-17] MEDS: Docusate 100mg tablet NG SCH ×2 (09:11→18:34)
--- NOTE | 2016-06-17 10:35 | General Progress Note ---
Assessment/Plan Assessment/Plan Assessment: 1. Leukocytosis - has improved, no fevers, no chills 2. Anemia 2/2 chronic disease - patient is JW, refusing blood transfusions, is on epogen and iron 3. Bilateral DVTs of the lower extremities - is s/p ivc filter (retrievable) given anemia and thrombocytopenia 4. Thrombocytopenia - likely 2/2 infection and consumptive state -markedly improved, now >150k 5. Toe ischemia and microvascular ischemia 6. ARF due to severe rhabdo - improved 7. Dehydration - improved 8. Shock - improved 9. DKA - improved Recommendations: - Continue epogen - Continue IV iron - Refusing blood products - Hgb goal >7, plt goal >10k - Abx to continue per ID - DW Staff Sincerely, Alavro Henderson MD Subjective Constitutional: Reports: no symptoms HEENT: Reports: no symptoms Cardiovascular: Reports: no symptoms Respiratory: Reports: no symptoms Gastrointestinal/Abdominal: Reports: no symptoms Genitourinary: Reports: no symptoms Neurologic/Psychiatric: Reports: no symptoms Endocrine: Reports: no symptoms Hematologic/Lymphatic: Reports: anemia Allergies: Coded Allergies: No Known Allergies (Unverified , 05/30/16) Subjective remains guarded, no fevers, no chills reported Objective Last 24 Hour Vital Signs Date Time Temp Pulse Resp B/P Pulse Ox O2 Delivery O2 Flow Rate FiO2 06/17/16 09:11 106 136/81 06/17/16 08:13 97.6 106 21 136/81 97 Nasal Cannula 2.0 06/17/16 04:00 97.7 94 20 119/76 97 Nasal Cannula 2.0 06/17/16 00:00 97.7 90 20 133/83 90 Nasal Cannula 2.0 06/16/16 21:04 108 132/82 06/16/16 19:20 96 Nasal Cannula 2.0 28 06/16/16 19:00 Nasal Cannula 2.0 28 06/16/16 19:00 98.6 108 18 132/82 Nasal Cannula 2.0 06/16/16 16:00 98.1 92 20 135/79 Room Air 06/16/16 12:00 98.6 93 18 137/90 99 Nasal Cannula 2.0 06/16/16 10:37 117 133/93 Intake and Output 06/16/16 06/17/16 19:00 07:00 Intake Total 1025 ml 1565 ml Output Total 560 ml 2050 ml Balance 465 ml -485 ml Free Water 400 ml 600 ml IV Total 525 ml 825 ml Tube Feeding 100 ml 140 ml Output Urine Total 560 ml 2050 ml Laboratory Tests 06/17/16 04:55: Sodium Level 150H, Potassium Level 3.7, Chloride Level 112H, Carbon Dioxide Level 25, Anion Gap 13, Blood Urea Nitrogen 21, Creatinine 1.2, Estimat Glomerular Filtration Rate > 60, Glucose Level 154H, Hemoglobin A1c 7.5H, Calcium Level 8.9, Total Creatine Kinase 513H Height (Feet): 5 Height (Inches): 11.00 Weight (Pounds): 165 General Appearance: no apparent distress EENT: pharynx normal Neck: normal alignment Cardiovascular: normal rate Respiratory/Chest: lungs clear Abdomen: non tender Extremities: non-tender Edema: mild edema Neurologic: alert Skin: warm/dry ALVARO HENDERSON Jun 17, 2016 10:35
--- NOTE | 2016-06-17 10:51 | Infectious Diseases Prog Note ---
"Assessment/Plan Assessment/Plan antibiotics : ceftaroline, fluconazole A 1. leucocytosis improving 2. renal failure improving 3. nasal MRSA colonization 4. increased LFT 5. thrombocytopenia 6. DKA 7. fungal UTI 8. MRSA | coag neg staph sepsis 9. cyanotic toes and right fingers P 1. continue ceftaroline 2. continue fluconazole 1 more day 3. will follow up cultures 4. plan per podiatry Subjective ROS Limited/Unobtainable: Yes Allergies: Coded Allergies: No Known Allergies (Unverified , 05/30/16) Objective Vital Signs Last 24 Hour Vital Signs Date Time Temp Pulse Resp B/P Pulse Ox O2 Delivery O2 Flow Rate FiO2 06/17/16 09:11 106 136/81 06/17/16 08:13 97.6 106 21 136/81 97 Nasal Cannula 2.0 06/17/16 04:00 97.7 94 20 119/76 97 Nasal Cannula 2.0 06/17/16 00:00 97.7 90 20 133/83 90 Nasal Cannula 2.0 06/16/16 21:04 108 132/82 06/16/16 19:20 96 Nasal Cannula 2.0 28 06/16/16 19:00 Nasal Cannula 2.0 28 06/16/16 19:00 98.6 108 18 132/82 Nasal Cannula 2.0 06/16/16 16:00 98.1 92 20 135/79 Room Air 06/16/16 12:00 98.6 93 18 137/90 99 Nasal Cannula 2.0 Height (Feet): 5 Height (Inches): 11.00 Weight (Pounds): 165 Respiratory/Chest: lungs clear Cardiovascular: normal rate, regular rhythm, no gallop/murmur Abdomen: soft, non tender Extremities: other - + edema, cyanotic right fingers, toes Laboratory Tests Test 06/17/16 04:55 Sodium Level 150 mEQ/L (135-145) H Potassium Level 3.7 mEQ/L (3.4-4.9) Chloride Level 112 mEQ/L (98-107) H Carbon Dioxide Level 25 mEQ/L (20-30) Anion Gap 13 (5-15) Blood Urea Nitrogen 21 mg/dL (7-23) Creatinine 1.2 mg/dL (0.7-1.2) Estimat Glomerular Filtration Rate > 60 mL/min (>60) Glucose Level 154 mg/dL (74-106) H Hemoglobin A1c 7.5 % (< 6.0) H Calcium Level 8.9 mg/dL (8.6-10.2) Total Creatine Kinase 513 U/L (38-174) H COLTON GONZALEZ Jun 17, 2016 10:51"
[2016-06-17 12:00] VITALS: BP 134/85
--- NOTE | 2016-06-17 14:11 | Wound Care Consultation ---
Wound Assessment Wound Assessment : Wound Number: #1 Wound Present on Admission: No New Wound: Yes Status Change of Wound: No Wound Location Body Site: sacral Wound Type: pressure ulcer Trista Test: Does not Trista Pressure Ulcer Stage: II - denuded blister Wound Thickness: Partial Thickness Wound Length: 1.5 Wound Width: 1.0 Wound Depth: 0.2 Percent of Wound Long Point/Red: 100 Wound Drainage Description: Serosanguineous Wound Drainage Amount: Scant Wound Drainage Odor: None/Absent Tissue Surrounding Wound: Denuded Wound General Appearance: Reddened Wound Comment #1 Sacral Pressure ulcer denuded blister revealing self as stage II. Recommendation -Low air loss overlay. -Local wound care as ordered. -Turn and reposition. -Offload affected area. -Optimize nutrition. -Keep clean and dry. -Assess and follow up with MD for any changes in condition noted. DIANE MATAMOROS Jun 17, 2016 14:11
[2016-06-17] MEDS ORDERED: Tubing IV Secondary IV ONE ×2 (15:53→16:14)
[2016-06-17 16:01] VITALS: BP 137/78
--- NOTE | 2016-06-17 16:28 | Vascular Surgery Progress Note ---
Subjective Subjective More awake but remains confused Objective Objective Last 24 Hour Vital Signs Date Time Temp Pulse Resp B/P Pulse Ox O2 Delivery O2 Flow Rate FiO2 06/17/16 16:01 97.9 63 21 137/78 99 Nasal Cannula 2.0 06/17/16 12:00 98.3 86 20 134/85 95 Nasal Cannula 2.0 06/17/16 09:11 106 136/81 06/17/16 08:13 97.6 106 21 136/81 97 Nasal Cannula 2.0 06/17/16 04:00 97.7 94 20 119/76 97 Nasal Cannula 2.0 06/17/16 00:00 97.7 90 20 133/83 90 Nasal Cannula 2.0 06/16/16 21:04 108 132/82 06/16/16 19:20 96 Nasal Cannula 2.0 28 06/16/16 19:00 Nasal Cannula 2.0 28 06/16/16 19:00 98.6 108 18 132/82 Nasal Cannula 2.0 Intake and Output 06/16/16 06/17/16 19:00 07:00 Intake Total 1025 ml 1565 ml Output Total 560 ml 2050 ml Balance 465 ml -485 ml Free Water 400 ml 600 ml IV Total 525 ml 825 ml Tube Feeding 100 ml 140 ml Output Urine Total 560 ml 2050 ml Laboratory Tests Test 06/17/16 04:55 Sodium Level 150 mEQ/L (135-145) H Potassium Level 3.7 mEQ/L (3.4-4.9) Chloride Level 112 mEQ/L (98-107) H Carbon Dioxide Level 25 mEQ/L (20-30) Anion Gap 13 (5-15) Blood Urea Nitrogen 21 mg/dL (7-23) Creatinine 1.2 mg/dL (0.7-1.2) Estimat Glomerular Filtration Rate > 60 mL/min (>60) Glucose Level 154 mg/dL (74-106) H Hemoglobin A1c 7.5 % (< 6.0) H Calcium Level 8.9 mg/dL (8.6-10.2) Total Creatine Kinase 513 U/L (38-174) H Height (Feet): 5 Height (Inches): 11.00 Weight (Pounds): 165 Objective Awake alert but confused cvs rrr lungs cta abd soft non tender Right hand palpable radial pulses Right distal finger dry gangrene 2+ femoral 2+ popliteal 3+ DP palpable pulses Bilateral distal toe gangrene Assessment/Plan Assessment Admitted with DKA & sepsis Hx of DIC Peripheral embolic phenomenon Palpable radial foot pulses with normal duplex exam Hx of thrombocytopenia UTI fungal MRSA Renal failure Encephalopathy Plan Abx per ID Has palpable wrist/ foot pulses and will need gangrene amputation once fully demarcated Hand plastic surgery eval re right finger gangrene amputation Podiatry for bilateral TMA Anticoagulate per heme Decub precautions Nutrition d/w RN at bedside NINA DOMINGO Jun 17, 2016 16:28
--- NOTE | 2016-06-17 17:18 | Diagnostic Imaging Report ---
APPROVED REPORT CPT Code: 26310 Risk Factors Diabetes : RIGHT UPPER EXTREMITY: Imaging of the subclavian, axillary, brachial, radial and ulnar arteries is within normal limits. There is no evidence of stenosis or occlusions within these segments. The Doppler waveforms of the upper extremity are multiphasic, consistent with normal inflow to the left upper extremity.
--- NOTE | 2016-06-17 17:24 | Diagnostic Imaging Report ---
APPROVED REPORT CPT Code: 27967 Present Symptoms Comments: R/O DVT BILATERAL UPPER EXTREMITY: Imaging reveals patency of the internal jugular, subclavian, axillary and brachial veins. Doppler indicates normal spontaneous flow within these venous segments, bilaterally. SUPERFICIAL VENOUS SYSTEM: Imaging reveals acute thrombus in the right cephalic vein at fossa level. The left cephalic and right or left basilic veins were not well visualized. There is no evidence of acute deep vein thrombosis.
--- NOTE | 2016-06-17 17:24 | Diagnostic Imaging Report ---
APPROVED REPORT CPT Code: 48578 Symptoms Comments: R/O stenosis or occlusion BILATERAL: Common femoral artery waveform analysis is within normal limits at rest. Color flow duplex sonography reveals patency of the superficial femoral, popliteal, and tibial arteries, there is no evidence of stenosis or occlusion within these segments. Doppler tibial artery waveform analysis is within normal limits, bilaterally. There is no evidence of significant arterial occlusive disease, bilaterally.
--- NOTE | 2016-06-17 17:24 | Diagnostic Imaging Report ---
APPROVED REPORT CPT Code: 12524 Symptoms Other : R/O Stenosis occlusion BILATERAL UPPER EXTREMITY: Imaging of the subclavian, axillary, brachial, radial and ulnar arteries is within normal limits. There is no evidence of stenosis or occlusions within these segments. The Doppler waveforms of both upper extremities are multiphasic, consistent with normal inflow to both upper extremities.
--- NOTE | 2016-06-17 17:25 | Diagnostic Imaging Report ---
APPROVED REPORT CPT Code: 79464 Present Symptoms DVT of Lower Extremity: Bilateral Shortness of breath RIGHT LEG: Venous imaging reveals acute thrombus in the common femoral to the calf veins. The greater saphenous vein is within normal limits. LEFT LEG: Venous imaging reveals acute thrombus in the superficial femoral to the calf veins. The common femoral vein is within normal limits. The greater saphenous vein is within normal limits. JEANA Estrada was notified of abnormal results at 11:20 hours.
--- NOTE | 2016-06-17 18:35 | Nephrology Progress Note ---
Assessment/Plan Problem List: (1) Hypovolemic shock (2) Metabolic acidosis (3) Hypernatremia (4) Altered level of consciousness (5) Acute renal failure (6) Encephalopathy (7) Ischemia of digits of hand (8) Ischemia of extremity (9) Rhabdomyolysis Plan creatinine 1.4 04/2016 continue hydration,,serial lytes, reduce iv rate, grave prognosis , severe rhabdo iv with bicarb, ck lower can stop bicarb parish improving replace k, iv adjusted--hypotonic fluids Subjective ROS Limited/Unobtainable: Yes Objective Objective Last 24 Hour Vital Signs Date Time Temp Pulse Resp B/P Pulse Ox O2 Delivery O2 Flow Rate FiO2 06/17/16 16:01 97.9 63 21 137/78 99 Nasal Cannula 2.0 06/17/16 12:00 98.3 86 20 134/85 95 Nasal Cannula 2.0 06/17/16 09:11 106 136/81 06/17/16 08:13 97.6 106 21 136/81 97 Nasal Cannula 2.0 06/17/16 04:00 97.7 94 20 119/76 97 Nasal Cannula 2.0 06/17/16 00:00 97.7 90 20 133/83 90 Nasal Cannula 2.0 06/16/16 21:04 108 132/82 06/16/16 19:20 96 Nasal Cannula 2.0 28 06/16/16 19:00 Nasal Cannula 2.0 28 06/16/16 19:00 98.6 108 18 132/82 Nasal Cannula 2.0 Intake and Output 06/16/16 06/17/16 19:00 07:00 Intake Total 1025 ml 1565 ml Output Total 560 ml 2050 ml Balance 465 ml -485 ml Free Water 400 ml 600 ml IV Total 525 ml 825 ml Tube Feeding 100 ml 140 ml Output Urine Total 560 ml 2050 ml Laboratory Tests 06/17/16 04:55: Sodium Level 150H, Potassium Level 3.7, Chloride Level 112H, Carbon Dioxide Level 25, Anion Gap 13, Blood Urea Nitrogen 21, Creatinine 1.2, Estimat Glomerular Filtration Rate > 60, Glucose Level 154H, Hemoglobin A1c 7.5H, Calcium Level 8.9, Total Creatine Kinase 513H Height (Feet): 5 Height (Inches): 11.00 Weight (Pounds): 165 General Appearance: confused EENT: normal ENT inspection Neck: normal alignment Cardiovascular: regular rhythm, regularly irregular Respiratory/Chest: lungs clear Abdomen: soft, no organomegaly Extremities: moderate edema, other - ischemic digits SHASTA REDDY Jun 17, 2016 18:35
[2016-06-17 20:20] VITALS: BP 128/87
--- NOTE | 2016-06-17 20:23 | Podiatric Progress Note ---
Assessment/Plan Patient Shoaib De Anda is a 56 year old male who was admitted on Jun 07, 2016 at 18:35 with DKA Problems: (1) Ischemia of foot (2) DKA (diabetic ketoacidoses) (3) Post traumatic encephalopathy (4) Altered level of consciousness (5) Acute renal failure Assessment/Plan - Continue left foot dressing changes until drainage is present. WBC is currently within normal limits and patient is afebrile - Will continue to monitor bilateral feet for the gangrene to demarcate. Patient will eventually require surgical intervention Subjective Reason for consult Bilateral foot acute ischemia of toes Allergies: Coded Allergies: No Known Allergies (Unverified , 05/30/16) Subjective Patient is unable to communicate effectively Objective Exam Last 24 Hour Vital Signs Date Time Temp Pulse Resp B/P Pulse Ox O2 Delivery O2 Flow Rate FiO2 06/17/16 16:01 97.9 63 21 137/78 99 Nasal Cannula 2.0 06/17/16 12:00 98.3 86 20 134/85 95 Nasal Cannula 2.0 06/17/16 09:11 106 136/81 06/17/16 08:13 97.6 106 21 136/81 97 Nasal Cannula 2.0 06/17/16 04:00 97.7 94 20 119/76 97 Nasal Cannula 2.0 06/17/16 00:00 97.7 90 20 133/83 90 Nasal Cannula 2.0 06/16/16 21:04 108 132/82 Laboratory Tests Test 06/17/16 04:55 Sodium Level 150 mEQ/L (135-145) H Potassium Level 3.7 mEQ/L (3.4-4.9) Chloride Level 112 mEQ/L (98-107) H Carbon Dioxide Level 25 mEQ/L (20-30) Anion Gap 13 (5-15) Blood Urea Nitrogen 21 mg/dL (7-23) Creatinine 1.2 mg/dL (0.7-1.2) Estimat Glomerular Filtration Rate > 60 mL/min (>60) Glucose Level 154 mg/dL (74-106) H Hemoglobin A1c 7.5 % (< 6.0) H Calcium Level 8.9 mg/dL (8.6-10.2) Total Creatine Kinase 513 U/L (38-174) H Microbiology Date/Time Source Procedure Growth Status 06/10/16 21:15 Blood Blood Culture - Final Staphylococcus Aureus - Mrsa Staphylococcus Sp Coag Neg Complete 06/07/16 20:45 Nasal Nares MRSA Culture - Final Staphylococcus Aureus - Mrsa Complete 06/10/16 12:30 Urine,Clean Catch Urine Culture - Final Eboni Albicans Complete 06/07/16 20:45 Rectum VRE Culture - Final Enterococcus Faecalis - Vre Complete Exam Narrative Left foot with ischemic changes that are at the level of the metatarsal heads. Right foot ischemic changes isolated to the toes. Bilateral foot with history of blisters. Left foot has auto lanced and is still draining. serosanguineous drainage. No purulence or malodor noted. Dermatological Wound Assessment : Exudate Amount: Scant Lang Klein DPM Jun 17, 2016 20:23
[2016-06-18] VITALS: BP 130/85
[2016-06-18] MEDS: NovoLOG Insulin Flexpen SUBQ SCH ×4 (00:23→17:57)
[2016-06-18 04:00] VITALS: BP 153/81
[2016-06-18] MEDS: CEFTAROLINE IV SCH ×2 (05:28→17:31)
[2016-06-18] MEDS: NS IV SCH ×2 (05:28→17:31)
--- NOTE | 2016-06-18 07:49 | General Progress Note ---
Assessment/Plan Problem List: (1) Acute renal failure ICD Codes: N17.9 - Acute kidney failure, unspecified SNOMED: 43100015 Qualifiers: Qualified Codes: N17.0 - Acute kidney failure with tubular necrosis (2) Encephalopathy ICD Codes: G93.40 - Encephalopathy, unspecified SNOMED: 44153374, 556970616 (3) DKA (diabetic ketoacidoses) ICD Codes: E13.10 - Other specified diabetes mellitus with ketoacidosis without coma SNOMED: 900802965, 57961484 Qualifiers: Qualified Codes: E13.11 - Other specified diabetes mellitus with ketoacidosis with coma (4) Leukocytosis ICD Codes: D72.829 - Elevated white blood cell count, unspecified SNOMED: 539117340, 359821176 Qualifiers: Qualified Codes: D72.829 - Elevated white blood cell count, unspecified (5) Altered level of consciousness ICD Codes: R40.4 - Transient alteration of awareness SNOMED: 9185272 Status: stable, progressing Assessment/Plan IVF per renal diabetes rx wound care antiplt rx abx per ID repeat swallow eval sunday possible GT if fails d/w , saw pt sunday. does not recommend surgical intervention. believes that gangrene may resolved with time Subjective ROS Limited/Unobtainable: Yes Constitutional: Reports: malaise, weakness HEENT: Reports: no symptoms Cardiovascular: Reports: no symptoms Respiratory: Reports: no symptoms Gastrointestinal/Abdominal: Reports: no symptoms Genitourinary: Reports: no symptoms Neurologic/Psychiatric: Reports: pre-existing deficit Endocrine: Reports: no symptoms Hematologic/Lymphatic: Reports: no symptoms Allergies: Coded Allergies: No Known Allergies (Unverified , 05/30/16) All Systems: reviewed and negative except above Subjective no events. gi appreciated. d/w plastic. no surgical intervention recommended at this time. overall more alert. unclear of pts baseline MS. pulled out NGT yesterday. now replaced. Objective Last 24 Hour Vital Signs Date Time Temp Pulse Resp B/P Pulse Ox O2 Delivery O2 Flow Rate FiO2 06/18/16 04:00 98.1 90 20 153/81 98 Nasal Cannula 2.0 06/18/16 00:00 98.2 83 20 130/85 98 Nasal Cannula 2.0 06/17/16 21:18 99 128/87 06/17/16 20:20 98.2 99 18 128/87 98 Nasal Cannula 2.0 06/17/16 19:05 Nasal Cannula 2.0 28 06/17/16 19:00 95 Nasal Cannula 2.0 28 06/17/16 16:01 97.9 63 21 137/78 99 Nasal Cannula 2.0 06/17/16 12:00 98.3 86 20 134/85 95 Nasal Cannula 2.0 06/17/16 09:11 106 136/81 06/17/16 08:13 97.6 106 21 136/81 97 Nasal Cannula 2.0 Intake and Output 06/17/16 06/18/16 19:00 07:00 Intake Total 505 ml 1986.25 ml Output Total 1700 ml 550 ml Balance -1195 ml 1436.25 ml Free Water 200 ml 800 ml IV Total 225 ml 946.25 ml Tube Feeding 80 ml 240 ml Output Urine Total 1700 ml 550 ml Height (Feet): 5 Height (Inches): 11.00 Weight (Pounds): 165 Objective eneral Appearance: WD/WN, alert, confused. NGT in place Neck: supple Cardiovascular: regular rhythm Respiratory/Chest: lungs clear Abdomen: normal bowel sounds, non tender, soft, no organomegaly, no mass Edema: mild edema Neurologic: alert Skin: cyanotic - right hand fingers. cyanotic toes/forefoot bilaterally. + blisters DARYN JEREZ Jun 18, 2016 07:49
--- NOTE | 2016-06-18 07:50 | General Progress Note ---
Assessment/Plan Assessment/Plan Assessment (1) Hypovolemic shock (2) Metabolic acidosis (3) Hypernatremia (4) Altered level of consciousness (5) Acute renal failure (6) Encephalopathy (7) Ischemia of digits of hand (8) Ischemia of extremity (9) Rhabdomyolysis Recommendations - continue NGT feeds over weekend - re-evaluate swallow function Sunday - if continues to improve, may not need PEG placement Subjective ROS Limited/Unobtainable: No Allergies: Coded Allergies: No Known Allergies (Unverified , 05/30/16) Objective Last 24 Hour Vital Signs Date Time Temp Pulse Resp B/P Pulse Ox O2 Delivery O2 Flow Rate FiO2 06/18/16 04:00 98.1 90 20 153/81 98 Nasal Cannula 2.0 06/18/16 00:00 98.2 83 20 130/85 98 Nasal Cannula 2.0 06/17/16 21:18 99 128/87 06/17/16 20:20 98.2 99 18 128/87 98 Nasal Cannula 2.0 06/17/16 19:05 Nasal Cannula 2.0 28 06/17/16 19:00 95 Nasal Cannula 2.0 28 06/17/16 16:01 97.9 63 21 137/78 99 Nasal Cannula 2.0 06/17/16 12:00 98.3 86 20 134/85 95 Nasal Cannula 2.0 06/17/16 09:11 106 136/81 06/17/16 08:13 97.6 106 21 136/81 97 Nasal Cannula 2.0 Intake and Output 06/17/16 06/18/16 19:00 07:00 Intake Total 505 ml 1986.25 ml Output Total 1700 ml 550 ml Balance -1195 ml 1436.25 ml Free Water 200 ml 800 ml IV Total 225 ml 946.25 ml Tube Feeding 80 ml 240 ml Output Urine Total 1700 ml 550 ml Height (Feet): 5 Height (Inches): 11.00 Weight (Pounds): 165 General Appearance: no apparent distress EENT: normal ENT inspection Neck: supple Cardiovascular: normal rate Respiratory/Chest: decreased breath sounds Abdomen: normal bowel sounds, non tender, soft Extremities: non-tender YO PINO Jun 18, 2016 07:50
[2016-06-18 08:03] LABS: BASOPHILS % (AUTO) 0.8 % (0.0-2.0); EOSINOPHILS % (AUTO) 2.6 % (0.0-3.0); LYMPHOCYTES % (AUTO) 14.2 % (20.0-45.0); MEAN CORPUSCULAR HEMOGLOBIN 24.4 PG (27.0-31.0); MEAN CORPUSCULAR HGB CONC 28.8 G/DL (32.0-36.0); MEAN CORPUSCULAR VOLUME 85 FL (80-99); MEAN PLATELET VOLUME 8.1 FL (6.5-10.1); MONOCYTES % (AUTO) 4.2 % (1.0-10.0); NEUTROPHILS % (AUTO) 78.3 % (45.0-75.0); PLATELET COUNT 285 K/UL (150-450); RED BLOOD COUNT 3.47 M/UL (4.70-6.10); RED CELL DISTRIBUTION WIDTH 18.8 % (11.6-14.8); WHITE BLOOD COUNT 8.3 K/UL (4.8-10.8)
[2016-06-18 08:15] VITALS: BP 125/76
[2016-06-18 08:52] LABS: ALANINE AMINOTRANSFERASE 69 U/L (3-41); ALBUMIN/GLOBULIN RATIO 0.4 (1.0-2.7); ANION GAP 16 (5-15); ASPARTATE AMINO TRANSFERASE 51 U/L (5-40); CALCIUM 8.8 mg/dL (8.6-10.2); CARBON DIOXIDE 21 mEQ/L (20-30); CHLORIDE 112 mEQ/L (98-107); CREATININE 1.1 mg/dL (0.7-1.2); GLOMERULAR FILTRATION RATE > 60 mL/min (>60); HEMOLYSIS 8; SODIUM 149 mEQ/L (135-145); TOTAL PROTEIN 6.7 g/dL (6.6-8.7)
[2016-06-18] MEDS: Levemir Flexpen SUBQ SCH ×2 (09:17→20:59)
[2016-06-18] MEDS: KCl 10% 40mEq/30ml liquid NG SCH ×2 (09:18→20:58)
[2016-06-18] MEDS: Docusate 100mg tablet NG SCH ×2 (09:18→17:31)
[2016-06-18] MEDS: Metoprolol 50mg tab NG SCH ×2 (09:19→20:58)
[2016-06-18] MEDS: Fluconazole 100mg tab NG SCH (09:19)
--- NOTE | 2016-06-18 09:19 | General Progress Note ---
Assessment/Plan Assessment/Plan Assessment: 1. Leukocytosis - has improved, now wnl 2. Anemia 2/2 chronic disease - patient is JW, refusing blood transfusions, is on epogen and iron 3. Bilateral DVTs of the lower extremities - is s/p ivc filter (retrievable) given anemia and thrombocytopenia 4. Thrombocytopenia - likely 2/2 infection and consumptive state -markedly improved, now >150k 5. Toe ischemia and microvascular ischemia 6. Malnutirtion with ngt - being seen by GI 7. Dehydration - improved 8. Shock - improved 9. DKA - improved Recommendations: - Continue epogen - Continue IV iron - Refusing blood products - Hgb goal >7, plt goal >10k - Abx to continue per ID - DW Staff Sincerely, Alvaro Henderson MD Subjective Constitutional: Reports: no symptoms HEENT: Reports: no symptoms Cardiovascular: Reports: no symptoms Respiratory: Reports: no symptoms Gastrointestinal/Abdominal: Reports: poor appetite Genitourinary: Reports: no symptoms Neurologic/Psychiatric: Reports: no symptoms Endocrine: Reports: no symptoms Hematologic/Lymphatic: Reports: anemia Allergies: Coded Allergies: No Known Allergies (Unverified , 05/30/16) Subjective no bleeding, with ngt, no chills reported Objective Last 24 Hour Vital Signs Date Time Temp Pulse Resp B/P Pulse Ox O2 Delivery O2 Flow Rate FiO2 06/18/16 08:15 98.2 95 20 125/76 99 Nasal Cannula 2.0 06/18/16 04:00 98.1 90 20 153/81 98 Nasal Cannula 2.0 06/18/16 00:00 98.2 83 20 130/85 98 Nasal Cannula 2.0 06/17/16 21:18 99 128/87 06/17/16 20:20 98.2 99 18 128/87 98 Nasal Cannula 2.0 06/17/16 19:05 Nasal Cannula 2.0 28 06/17/16 19:00 95 Nasal Cannula 2.0 28 06/17/16 16:01 97.9 63 21 137/78 99 Nasal Cannula 2.0 06/17/16 12:00 98.3 86 20 134/85 95 Nasal Cannula 2.0 Intake and Output 06/17/16 06/18/16 19:00 07:00 Intake Total 505 ml 1986.25 ml Output Total 1700 ml 550 ml Balance -1195 ml 1436.25 ml Free Water 200 ml 800 ml IV Total 225 ml 946.25 ml Tube Feeding 80 ml 240 ml Output Urine Total 1700 ml 550 ml Laboratory Tests 06/18/16 05:45: Total Creatine Kinase 402H 06/18/16 05:55: White Blood Count 8.3, Red Blood Count 3.47L, Hemoglobin 8.5L, Hematocrit 29.4L , Mean Corpuscular Volume 85, Mean Corpuscular Hemoglobin 24.4L, Mean Corpuscular Hemoglobin Concent 28.8L, Red Cell Distribution Width 18.8H, Platelet Count 285, Mean Platelet Volume 8.1, Neutrophils (%) (Auto) 78.3H, Lymphocytes (%) (Auto) 14.2L, Monocytes (%) (Auto) 4.2, Eosinophils (%) (Auto) 2.6, Basophils (%) (Auto) 0.8, Sodium Level 149H, Potassium Level 4.0, Chloride Level 112H, Carbon Dioxide Level 21, Anion Gap 16H, Blood Urea Nitrogen 19, Creatinine 1.1, Estimat Glomerular Filtration Rate > 60, Glucose Level 132H, Calcium Level 8.8, Total Bilirubin 0.4, Aspartate Amino Transf (AST/SGOT) 51H, Alanine Aminotransferase (ALT/SGPT) 69H, Alkaline Phosphatase 157H, Total Protein 6.7, Albumin 2.1L, Globulin 4.6, Albumin/Globulin Ratio 0.4L Height (Feet): 5 Height (Inches): 11.00 Weight (Pounds): 165 General Appearance: no apparent distress EENT: TMs normal Neck: supple Cardiovascular: normal rate Respiratory/Chest: lungs clear Abdomen: non tender Extremities: non-tender Edema: 1+ Leg (L), 1+ Leg (R) Edema: mild edema Neurologic: alert Skin: warm/dry ALVARO HENDERSON Jun 18, 2016 09:19
--- NOTE | 2016-06-18 10:04 | Diagnostic Imaging Report ---
Indication: Nasogastric tube placement Technique: XRAY ABDOMEN 1VIEW/KUB Comparison: Examination from earlier the same day at 1040 hrs. Findings: Nasogastric tube is within the stomach. Gas pattern is nonspecific. IVC filter is present. Impression: Nasogastric tube placement within the stomach.
[2016-06-18] MEDS ORDERED: Sterile Water Irrig 1000ml IRRIG ONE (10:28)
[2016-06-18] MEDS ORDERED: 1/2 NS 1000ml IV ONE (10:28)
--- NOTE | 2016-06-18 11:46 | Diagnostic Imaging Report ---
APPROVED REPORT CPT Code: 62973 Present Symptoms Upper Extremity Pain: Right Upper Extremity Edema: Right RIGHT UPPER EXTREMITY: Venous imaging reveals patency of the internal jugular, subclavian, axillary and brachial veins. The cephalic and basilic veins are also patent. Doppler indicates normal spontaneous flow within these venous segments.
--- NOTE | 2016-06-18 11:46 | Diagnostic Imaging Report ---
Indication: Abdominal pain Technique: XRAY ABDOMEN 1VIEW/KUB Comparison: 06/15/16 Findings: Nasogastric tube is not seen. IVC filter and cardiac postsurgical changes are noted. Bowel gas pattern in the visualized upper abdomen is nonspecific. Impression: Nasogastric tube not visualized. Clinical correlation recommended.
[2016-06-18 11:51] VITALS: BP 120/74
--- NOTE | 2016-06-18 12:17 | Infectious Diseases Prog Note ---
Assessment/Plan Assessment/Plan A: MRSA, [employer]IVE sepsis Toes & finger cyanosis MRSA & VRE colonization Anemia Thrombocytopenia Acute renal failure Fungal UTI DVT of legs S/P IVC filter P 1. continue Teflaro , discontinue Fluconazole 2. wound culture of left foot Subjective ROS Limited/Unobtainable: Yes Neurologic: Reports: confusion, other - has mittens Allergies: Coded Allergies: No Known Allergies (Unverified , 05/30/16) Objective Vital Signs Last 24 Hour Vital Signs Date Time Temp Pulse Resp B/P Pulse Ox O2 Delivery O2 Flow Rate FiO2 06/18/16 11:51 97.7 74 20 120/74 97 Nasal Cannula 2.0 06/18/16 09:19 95 125/76 06/18/16 08:15 98.2 95 20 125/76 99 Nasal Cannula 2.0 06/18/16 04:00 98.1 90 20 153/81 98 Nasal Cannula 2.0 06/18/16 00:00 98.2 83 20 130/85 98 Nasal Cannula 2.0 06/17/16 21:18 99 128/87 06/17/16 20:20 98.2 99 18 128/87 98 Nasal Cannula 2.0 06/17/16 19:05 Nasal Cannula 2.0 28 06/17/16 19:00 95 Nasal Cannula 2.0 28 06/17/16 16:01 97.9 63 21 137/78 99 Nasal Cannula 2.0 Height (Feet): 5 Height (Inches): 11.00 Weight (Pounds): 165 General Appearance: no acute distress HEENT: mucous membranes moist Respiratory/Chest: lungs clear Cardiovascular: normal rate, other - scar of thoracotomy Abdomen: soft, non tender, other - NG tube Extremities: no edema, other - B/L toes & R fingers gangrene Skin: ulcers, other - Left foot Neurologic/Psychiatric: alert, responsive, disoriented Laboratory Tests Test 06/18/16 05:45 06/18/16 05:55 Total Creatine Kinase 402 U/L (38-174) H White Blood Count 8.3 K/UL (4.8-10.8) Red Blood Count 3.47 M/UL (4.70-6.10) L Hemoglobin 8.5 G/DL (14.2-18.0) L Hematocrit 29.4 % (42.0-52.0) L Mean Corpuscular Volume 85 FL (80-99) Mean Corpuscular Hemoglobin 24.4 PG (27.0-31.0) L Mean Corpuscular Hemoglobin Concent 28.8 G/DL (32.0-36.0) L Red Cell Distribution Width 18.8 % (11.6-14.8) H Platelet Count 285 K/UL (150-450) Mean Platelet Volume 8.1 FL (6.5-10.1) Neutrophils (%) (Auto) 78.3 % (45.0-75.0) H Lymphocytes (%) (Auto) 14.2 % (20.0-45.0) L Monocytes (%) (Auto) 4.2 % (1.0-10.0) Eosinophils (%) (Auto) 2.6 % (0.0-3.0) Basophils (%) (Auto) 0.8 % (0.0-2.0) Sodium Level 149 mEQ/L (135-145) H Potassium Level 4.0 mEQ/L (3.4-4.9) Chloride Level 112 mEQ/L (98-107) H Carbon Dioxide Level 21 mEQ/L (20-30) Anion Gap 16 (5-15) H Blood Urea Nitrogen 19 mg/dL (7-23) Creatinine 1.1 mg/dL (0.7-1.2) Estimat Glomerular Filtration Rate > 60 mL/min (>60) Glucose Level 132 mg/dL (74-106) H Calcium Level 8.8 mg/dL (8.6-10.2) Total Bilirubin 0.4 mg/dL (0.0-1.2) Aspartate Amino Transf (AST/SGOT) 51 U/L (5-40) H Alanine Aminotransferase (ALT/SGPT) 69 U/L (3-41) H Alkaline Phosphatase 157 U/L (40-129) H Total Protein 6.7 g/dL (6.6-8.7) Albumin 2.1 g/dL (3.5-5.2) L Globulin 4.6 g/dL Albumin/Globulin Ratio 0.4 (1.0-2.7) L Current Medications Medications (Trade) Dose Ordered Sig/Mateo Route PRN Reason Start Time Stop Time Status Last Admin Dose Admin Acetaminophen (Tylenol) 650 mg Q4H PRN NG fever 100 and above 1/19/17 17:00 07/15/16 16:59 Ceftaroline Fosamil/Sodium Chloride (Teflaro/Sodium Chloride) 110 ml @ 110 mls/hr Q12HR@0600,1800 IV 06/15/16 18:00 06/22/16 17:59 06/18/16 05:28 Dextrose (Dextrose 50%) STAT PRN IV Hypoglycemia 06/17/16 04:15 07/17/16 04:14 Docusate Sodium (Colace) 100 mg BID NG 06/15/16 18:00 07/15/16 17:59 06/18/16 09:18 Epoetin Zia (Procrit (for non ESRD use)) 10,000 units SUN-SUN-SUN SUBQ 06/16/16 21:00 07/16/16 20:59 06/16/16 21:04 Fluconazole (Diflucan) 100 mg DAILY NG 06/16/16 09:00 06/23/16 08:59 06/18/16 09:19 Insulin Aspart (NovoLOG) Q6HR SUBQ 06/17/16 06:00 07/17/16 05:59 06/18/16 05:28 Insulin Detemir (Levemir) 10 units Q12HR SUBQ 06/15/16 21:00 07/15/16 20:59 06/18/16 09:17 Metoprolol Tartrate 50 mg 50 mg EVERY 12 HOURS NG 06/16/16 09:00 07/16/16 08:59 06/18/16 09:19 Potassium Chloride (KCl 10% 40mEq Oral solution) 40 meq Q12H NG 06/15/16 21:00 07/15/16 20:59 06/18/16 09:18 Sodium Chloride (0.45% NS 1000ml) 1,000 ml @ 75 mls/hr [id number] IV 06/16/16 19:30 07/16/16 19:29 06/18/16 12:01 DE REILLY Jun 18, 2016 12:17
--- NOTE | 2016-06-18 15:27 | Nephrology Progress Note ---
Assessment/Plan Assessment (1) Hypovolemic shock (2) Metabolic acidosis (3) Hypernatremia (4) Altered level of consciousness (5) Acute renal failure (6) Encephalopathy (7) Ischemia of digits of hand (8) Ischemia of extremity (9) Rhabdomyolys Plan Rhabdo is resolving, YUE resolved , non oliguric NA continues to be high, hypervolemic on exam will dc IVF start water flushes via feeding tube d/w team Subjective ROS Limited/Unobtainable: Yes Objective Objective Last 24 Hour Vital Signs Date Time Temp Pulse Resp B/P Pulse Ox O2 Delivery O2 Flow Rate FiO2 06/18/16 11:51 97.7 74 20 120/74 97 Nasal Cannula 2.0 06/18/16 09:19 95 125/76 06/18/16 08:15 98.2 95 20 125/76 99 Nasal Cannula 2.0 06/18/16 04:00 98.1 90 20 153/81 98 Nasal Cannula 2.0 06/18/16 00:00 98.2 83 20 130/85 98 Nasal Cannula 2.0 06/17/16 21:18 99 128/87 06/17/16 20:20 98.2 99 18 128/87 98 Nasal Cannula 2.0 06/17/16 19:05 Nasal Cannula 2.0 28 06/17/16 19:00 95 Nasal Cannula 2.0 28 06/17/16 16:01 97.9 63 21 137/78 99 Nasal Cannula 2.0 Intake and Output 06/17/16 06/18/16 19:00 07:00 Intake Total 505 ml 1986.25 ml Output Total 1700 ml 550 ml Balance -1195 ml 1436.25 ml Free Water 200 ml 800 ml IV Total 225 ml 946.25 ml Tube Feeding 80 ml 240 ml Output Urine Total 1700 ml 550 ml Laboratory Tests 06/18/16 05:45: Total Creatine Kinase 402H 06/18/16 05:55: White Blood Count 8.3, Red Blood Count 3.47L, Hemoglobin 8.5L, Hematocrit 29.4L , Mean Corpuscular Volume 85, Mean Corpuscular Hemoglobin 24.4L, Mean Corpuscular Hemoglobin Concent 28.8L, Red Cell Distribution Width 18.8H, Platelet Count 285, Mean Platelet Volume 8.1, Neutrophils (%) (Auto) 78.3H, Lymphocytes (%) (Auto) 14.2L, Monocytes (%) (Auto) 4.2, Eosinophils (%) (Auto) 2.6, Basophils (%) (Auto) 0.8, Sodium Level 149H, Potassium Level 4.0, Chloride Level 112H, Carbon Dioxide Level 21, Anion Gap 16H, Blood Urea Nitrogen 19, Creatinine 1.1, Estimat Glomerular Filtration Rate > 60, Glucose Level 132H, Calcium Level 8.8, Total Bilirubin 0.4, Aspartate Amino Transf (AST/SGOT) 51H, Alanine Aminotransferase (ALT/SGPT) 69H, Alkaline Phosphatase 157H, Total Protein 6.7, Albumin 2.1L, Globulin 4.6, Albumin/Globulin Ratio 0.4L Height (Feet): 5 Height (Inches): 11.00 Weight (Pounds): 165 General Appearance: WD/WN, no apparent distress EENT: normal ENT inspection Neck: non-tender, supple Cardiovascular: normal rate, regular rhythm Respiratory/Chest: lungs clear, normal breath sounds Abdomen: normal bowel sounds, non tender, soft Extremities: pitting MAYCO SAEED Jun 18, 2016 15:27
[2016-06-18 16:00] VITALS: BP 124/82
[2016-06-18 20:00] VITALS: BP 127/79
--- NOTE | 2016-06-18 20:47 | Progress Note ---
DATE: 06/16/2016 CARDIOLOGY PROGRESS NOTE SUBJECTIVE: The patient is on NG-tube feedings. OBJECTIVE: GENERAL: On exam, ischemic digits persist. VITAL SIGNS: Blood pressure 135/79, pulse 92, respiratory rate 20, and afebrile. LUNGS: Clear. CARDIAC: Regular. ABDOMEN: Soft. LABORATORY DATA: Reviewed. IMPRESSION: 1. Diabetic ketoacidosis. 2. Sepsis with shock. 3. Ischemic digits. 4. Dysphasia. 5. Dehydration. 6. Hypernatremia. 7. Acute on chronic renal failure. PLAN: 1. Wound care. 2. No emergent amputation plan. 3. Antibiotics. 4. Hypotonic IV fluids. 5. Pain control. Morales Serrano M.D. DR: TEREZA JOB#: [id number] CC:
--- NOTE | 2016-06-18 20:49 | Podiatric Progress Note ---
Assessment/Plan Patient Shoaib De Anda is a 56 year old male who was admitted on Jun 07, 2016 at 18:35 with DKA Problems: (1) Ischemia of foot (2) DKA (diabetic ketoacidoses) (3) Altered level of consciousness (4) Post traumatic encephalopathy Assessment/Plan - Left foot has decreasing amounts of drainage. Once drainage is minimal will discontinue dressing changes. Once gangrene has completely demarcated patient will require surgical intervention with possible transmetatarsal amputation. Continue to monitor bilateral feet daily. Subjective Reason for consult Bilateral foot acute ischemia Allergies: Coded Allergies: No Known Allergies (Unverified , 05/30/16) Subjective Patient is unable to communicate effectively Objective Exam Last 24 Hour Vital Signs Date Time Temp Pulse Resp B/P Pulse Ox O2 Delivery O2 Flow Rate FiO2 06/18/16 20:00 98.7 78 20 127/79 95 Nasal Cannula 2.0 06/18/16 16:00 97.9 80 18 124/82 94 Nasal Cannula 2.0 06/18/16 11:51 97.7 74 20 120/74 97 Nasal Cannula 2.0 06/18/16 09:19 95 125/76 06/18/16 08:15 98.2 95 20 125/76 99 Nasal Cannula 2.0 06/18/16 04:00 98.1 90 20 153/81 98 Nasal Cannula 2.0 06/18/16 00:00 98.2 83 20 130/85 98 Nasal Cannula 2.0 06/17/16 21:18 99 128/87 Laboratory Tests Test 06/18/16 05:45 06/18/16 05:55 Total Creatine Kinase 402 U/L (38-174) H White Blood Count 8.3 K/UL (4.8-10.8) Red Blood Count 3.47 M/UL (4.70-6.10) L Hemoglobin 8.5 G/DL (14.2-18.0) L Hematocrit 29.4 % (42.0-52.0) L Mean Corpuscular Volume 85 FL (80-99) Mean Corpuscular Hemoglobin 24.4 PG (27.0-31.0) L Mean Corpuscular Hemoglobin Concent 28.8 G/DL (32.0-36.0) L Red Cell Distribution Width 18.8 % (11.6-14.8) H Platelet Count 285 K/UL (150-450) Mean Platelet Volume 8.1 FL (6.5-10.1) Neutrophils (%) (Auto) 78.3 % (45.0-75.0) H Lymphocytes (%) (Auto) 14.2 % (20.0-45.0) L Monocytes (%) (Auto) 4.2 % (1.0-10.0) Eosinophils (%) (Auto) 2.6 % (0.0-3.0) Basophils (%) (Auto) 0.8 % (0.0-2.0) Sodium Level 149 mEQ/L (135-145) H Potassium Level 4.0 mEQ/L (3.4-4.9) Chloride Level 112 mEQ/L (98-107) H Carbon Dioxide Level 21 mEQ/L (20-30) Anion Gap 16 (5-15) H Blood Urea Nitrogen 19 mg/dL (7-23) Creatinine 1.1 mg/dL (0.7-1.2) Estimat Glomerular Filtration Rate > 60 mL/min (>60) Glucose Level 132 mg/dL (74-106) H Calcium Level 8.8 mg/dL (8.6-10.2) Total Bilirubin 0.4 mg/dL (0.0-1.2) Aspartate Amino Transf (AST/SGOT) 51 U/L (5-40) H Alanine Aminotransferase (ALT/SGPT) 69 U/L (3-41) H Alkaline Phosphatase 157 U/L (40-129) H Total Protein 6.7 g/dL (6.6-8.7) Albumin 2.1 g/dL (3.5-5.2) L Globulin 4.6 g/dL Albumin/Globulin Ratio 0.4 (1.0-2.7) L Microbiology Date/Time Source Procedure Growth Status 06/10/16 21:15 Blood Blood Culture - Final Staphylococcus Aureus - Mrsa Staphylococcus Sp Coag Neg Complete 06/07/16 20:45 Nasal Nares MRSA Culture - Final Staphylococcus Aureus - Mrsa Complete 06/10/16 12:30 Urine,Clean Catch Urine Culture - Final Eboni Albicans Complete 06/07/16 20:45 Rectum VRE Culture - Final Enterococcus Faecalis - Vre Complete Exam Narrative Bilateral foot with cyanotic appearing toes, left worse than right. Bilateral foot with history of blistering. Left foot blister has auto lanced. Area still draining serosanguineous fluid. No purulence or malodor noted. Dermatological Wound Assessment : Exudate Amount: Scant Lang Klein DPM Jun 18, 2016 20:49
--- NOTE | 2016-06-18 20:57 | Progress Note ---
DATE: 06/17/2016 CARDIOLOGY PROGRESS NOTE SUBJECTIVE: The patient is still withdrawn and confused. He remains on IV fluid hydration. OBJECTIVE: VITAL SIGNS: Blood pressure 137/78, pulse 63, respirations 21, and afebrile. LUNGS: Bilateral breath sounds. LUNGS: Regular rhythm and rate. Normal S1 and S2. ABDOMEN: Soft. Moderate dependent edema and ischemia of the distal digits of the feet and right hand. LABORATORY DATA: Sodium 150, bicarb 25, BUN 21, creatinine 1.2, and potassium 3.7. CK 513. IMPRESSION: 1. Recovering rhabdomyolysis. 2. Improving dehydration and hypernatremia with hyperchloremia. 3. Resolved hypokalemia. 4. Sepsis with shock. 5. Ischemic digits of the hands and feet. 6. Severe protein-calorie malnutrition. 7. Diabetic ketoacidosis, recovered. 8. Anemia. PLAN: 1. Continue hypotonic IV fluids. 2. Pain control. 3. Antimicrobials. 4. No emergent plans for amputation. 5. Monitor hemoglobin, transfuse if less than 8 g. Morales Serrano M.D. DR: TEREZA JOB#: [id number] CC:
[2016-06-19] VITALS: BP 131/61
[2016-06-19] MEDS: NovoLOG Insulin Flexpen SUBQ SCH ×5 (00:19→18:53)
[2016-06-19 04:00] VITALS: BP 138/75
[2016-06-19] MEDS: CEFTAROLINE IV SCH ×3 (05:31→19:39)
[2016-06-19] MEDS: NS IV SCH ×3 (05:31→19:39)
--- NOTE | 2016-06-19 06:57 | Geriatric Medicine Prog Note ---
DATE: 06/18/2016 SUBJECTIVE: The patient's is in im[proved diabetic control. control. OBJECTIVE: VITAL SIGNS: Blood pressure 160/81, pulse 90, respiratory rate 20, and temperature is 98.1 degrees. RESPIRATORY: [facility] LABORATORY DATA:Glucose 140 mg 5 ASSESSMENT: Diabetes mellitus, improved control. PLAN: Continue sliding scale NovoLog q.i.d. ac and HS. Danny Campbell M.D. DR: ZACKERY JOB#: [id number] CC: ESME
--- NOTE | 2016-06-19 07:35 | General Progress Note ---
Assessment/Plan Problem List: (1) Acute renal failure ICD Codes: N17.9 - Acute kidney failure, unspecified SNOMED: 71153136 Qualifiers: Qualified Codes: N17.0 - Acute kidney failure with tubular necrosis (2) Encephalopathy ICD Codes: G93.40 - Encephalopathy, unspecified SNOMED: 23090073, 842312870 (3) DKA (diabetic ketoacidoses) ICD Codes: E13.10 - Other specified diabetes mellitus with ketoacidosis without coma SNOMED: 187194684, 98629181 Qualifiers: Qualified Codes: E13.11 - Other specified diabetes mellitus with ketoacidosis with coma (4) Leukocytosis ICD Codes: D72.829 - Elevated white blood cell count, unspecified SNOMED: 519800536, 643663717 Qualifiers: Qualified Codes: D72.829 - Elevated white blood cell count, unspecified (5) Altered level of consciousness ICD Codes: R40.4 - Transient alteration of awareness SNOMED: 3996386 Status: stable, progressing Assessment/Plan cont ngt diabetes rx monitor bs wound care antiplt rx abx per ID repeat swallow eval possible GT if fails no immediated surgical intervention needed per podiatry and plastic surgery Subjective ROS Limited/Unobtainable: Yes Constitutional: Reports: malaise, weakness HEENT: Reports: no symptoms Cardiovascular: Reports: no symptoms Respiratory: Reports: no symptoms Gastrointestinal/Abdominal: Reports: difficulty swallowing Genitourinary: Reports: no symptoms Neurologic/Psychiatric: Reports: pre-existing deficit Endocrine: Reports: no symptoms Hematologic/Lymphatic: Reports: anemia Allergies: Coded Allergies: No Known Allergies (Unverified , 05/30/16) All Systems: reviewed and negative except above Subjective no events. w/o complaints. mostly confused. answers some simple questions. denies pain or sob. gangrene stable. no fevers Objective Last 24 Hour Vital Signs Date Time Temp Pulse Resp B/P Pulse Ox O2 Delivery O2 Flow Rate FiO2 06/19/16 04:00 98.1 89 20 138/75 10 Room Air 06/19/16 00:00 98.4 78 20 131/61 100 Room Air 06/18/16 20:58 78 127/79 06/18/16 20:00 98.7 78 20 127/79 95 Nasal Cannula 2.0 06/18/16 16:00 97.9 80 18 124/82 94 Nasal Cannula 2.0 06/18/16 11:51 97.7 74 20 120/74 97 Nasal Cannula 2.0 06/18/16 09:19 95 125/76 06/18/16 08:15 98.2 95 20 125/76 99 Nasal Cannula 2.0 Intake and Output 06/18/16 06/19/16 19:00 07:00 Intake Total 720 ml 620 ml Output Total 800 ml 1250 ml Balance -80 ml -630 ml Free Water 430 ml 400 ml IV Total 110 ml Tube Feeding 180 ml 220 ml Output Urine Total 800 ml 1250 ml # Bowel Movements 3 Height (Feet): 5 Height (Inches): 11.00 Weight (Pounds): 165 Objective eneral Appearance: WD/WN, alert, confused. NGT in place Neck: supple Cardiovascular: regular rhythm Respiratory/Chest: lungs clear Abdomen: normal bowel sounds, non tender, soft, no organomegaly, no mass Edema: mild edema Neurologic: alert Skin: cyanotic - right hand fingers. cyanotic toes/forefoot bilaterally. + blisters DARYN JEREZ Jun 19, 2016 07:35
[2016-06-19 08:15] VITALS: BP 135/93
[2016-06-19] MEDS: Docusate 100mg tablet NG SCH ×2 (09:24→18:44)
[2016-06-19] MEDS: KCl 10% 40mEq/30ml liquid NG SCH ×2 (09:26→21:14)
[2016-06-19] MEDS: Levemir Flexpen SUBQ SCH ×2 (09:27→21:17)
[2016-06-19] MEDS: Metoprolol 50mg tab NG SCH ×2 (09:34→21:14)
[2016-06-19 10:04] LABS: ALANINE AMINOTRANSFERASE 54 U/L (3-41); ALBUMIN/GLOBULIN RATIO 0.4 (1.0-2.7); ANION GAP 15 (5-15); ASPARTATE AMINO TRANSFERASE 38 U/L (5-40); CALCIUM 9.3 mg/dL (8.6-10.2); CARBON DIOXIDE 23 mEQ/L (20-30); CHLORIDE 108 mEQ/L (98-107); GLOMERULAR FILTRATION RATE > 60 mL/min (>60); HEMOLYSIS 7; POTASSIUM 4.1 mEQ/L (3.4-4.9); SODIUM 146 mEQ/L (135-145); TOTAL PROTEIN 7.3 g/dL (6.6-8.7)
--- NOTE | 2016-06-19 10:30 | Diagnostic Imaging Report ---
Indication: NG tube Comparison: None Single view of the abdomen obtained NG tube is noted. Both the proximal port and tip are in the stomach. Impression: Nasogastric tube satisfactory in position
--- NOTE | 2016-06-19 11:12 | Infectious Diseases Prog Note ---
"Assessment/Plan Assessment/Plan antibiotics : ceftaroline A 1. leucocytosis improving 2. renal failure improving 3. nasal MRSA colonization 4. increased LFT 5. thrombocytopenia 6. DKA 7. fungal UTI s/p rx 8. MRSA | coag neg staph sepsis 9. cyanotic toes and right fingers P 1. continue ceftaroline 2. will follow up cultures 3. plan per podiatry Subjective ROS Limited/Unobtainable: Yes Allergies: Coded Allergies: No Known Allergies (Unverified , 05/30/16) Objective Vital Signs Last 24 Hour Vital Signs Date Time Temp Pulse Resp B/P Pulse Ox O2 Delivery O2 Flow Rate FiO2 06/19/16 09:34 93 135/81 06/19/16 08:15 98.3 93 21 135/93 95 Room Air 06/19/16 07:59 Nasal Cannula 2.0 28 06/19/16 07:58 96 Nasal Cannula 2.0 28 06/19/16 04:00 98.1 89 20 138/75 10 Room Air 06/19/16 00:00 98.4 78 20 131/61 100 Room Air 06/18/16 20:58 78 127/79 06/18/16 20:00 98.7 78 20 127/79 95 Nasal Cannula 2.0 06/18/16 16:00 97.9 80 18 124/82 94 Nasal Cannula 2.0 06/18/16 11:51 97.7 74 20 120/74 97 Nasal Cannula 2.0 Height (Feet): 5 Height (Inches): 11.00 Weight (Pounds): 165 Respiratory/Chest: lungs clear Cardiovascular: normal rate, regular rhythm, no gallop/murmur Abdomen: soft, non tender Extremities: other - + edema, bilateral feet and right fingers cyanotic Microbiology Date/Time Source Procedure Growth Status 06/18/16 12:46 Foot Left Gram Stain - Final Resulted 06/18/16 12:46 Wound Culture - Preliminary Gram Positive Cocci Resulted Laboratory Tests Test 06/19/16 09:25 Sodium Level 146 mEQ/L (135-145) H Potassium Level 4.1 mEQ/L (3.4-4.9) Chloride Level 108 mEQ/L (98-107) H Carbon Dioxide Level 23 mEQ/L (20-30) Anion Gap 15 (5-15) Blood Urea Nitrogen 17 mg/dL (7-23) Creatinine 1.0 mg/dL (0.7-1.2) Estimat Glomerular Filtration Rate > 60 mL/min (>60) Glucose Level 123 mg/dL (74-106) H Calcium Level 9.3 mg/dL (8.6-10.2) Total Bilirubin 0.4 mg/dL (0.0-1.2) Aspartate Amino Transf (AST/SGOT) 38 U/L (5-40) Alanine Aminotransferase (ALT/SGPT) 54 U/L (3-41) H Alkaline Phosphatase 167 U/L (40-129) H Total Protein 7.3 g/dL (6.6-8.7) Albumin 2.3 g/dL (3.5-5.2) L Globulin 5.0 g/dL Albumin/Globulin Ratio 0.4 (1.0-2.7) L Current Medications Medications (Trade) Dose Ordered Sig/Mateo Route PRN Reason Start Time Stop Time Status Last Admin Dose Admin Acetaminophen (Tylenol) 650 mg Q4H PRN NG fever 100 and above 06/15/16 17:00 07/15/16 16:59 Ceftaroline Fosamil/Sodium Chloride (Teflaro/Sodium Chloride) 110 ml @ 110 mls/hr Q12HR@0600,1800 IV 06/15/16 18:00 06/22/16 17:59 06/19/16 05:52 Dextrose (Dextrose 50%) STAT PRN IV Hypoglycemia 06/17/16 04:15 07/17/16 04:14 Docusate Sodium (Colace) 100 mg BID NG 06/15/16 18:00 07/15/16 17:59 06/19/16 09:24 Epoetin Zia (Procrit (for non ESRD use)) 10,000 units SUN-SUN-SUN SUBQ 06/16/16 21:00 07/16/16 20:59 06/16/16 21:04 Insulin Aspart (NovoLOG) Q6HR SUBQ 06/17/16 06:00 07/17/16 05:59 06/19/16 05:36 Insulin Detemir (Levemir) 10 units Q12HR SUBQ 06/15/16 21:00 07/15/16 20:59 06/19/16 09:27 Metoprolol Tartrate (Lopressor) 50 mg EVERY 12 HOURS NG 06/16/16 09:00 07/16/16 08:59 06/19/16 09:34 Potassium Chloride (KCl 10% 40mEq Oral solution) 40 meq Q12H NG 06/15/16 21:00 07/15/16 20:59 06/19/16 09:26 COLTON GONZALEZ Jun 19, 2016 11:12"
[2016-06-19 12:02] VITALS: BP 121/75
--- NOTE | 2016-06-19 14:25 | Diagnostic Imaging Report ---
Indication: NG tube Comparison: None A single view chest radiograph was obtained. Findings: Nasogastric tube tip is projected over the stomach. The tube is high in the lumen of the stomach. The proximal port may be above the EG junction. Recommend advancing the tube further. Impression: Recommended advancing the nasogastric tube further
--- NOTE | 2016-06-19 15:04 | Vascular Surgery Progress Note ---
Subjective Subjective More awake but remains confused No new complaints Objective Objective Last 24 Hour Vital Signs Date Time Temp Pulse Resp B/P Pulse Ox O2 Delivery O2 Flow Rate FiO2 06/19/16 12:02 98.1 82 19 121/75 97 Nasal Cannula 2.0 06/19/16 09:34 93 135/81 06/19/16 08:15 98.3 93 21 135/93 95 Room Air 06/19/16 07:59 Nasal Cannula 2.0 28 06/19/16 07:58 96 Nasal Cannula 2.0 28 06/19/16 04:00 98.1 89 20 138/75 10 Room Air 06/19/16 00:00 98.4 78 20 131/61 100 Room Air 06/18/16 20:58 78 127/79 06/18/16 20:00 98.7 78 20 127/79 95 Nasal Cannula 2.0 06/18/16 16:00 97.9 80 18 124/82 94 Nasal Cannula 2.0 Intake and Output 06/18/16 06/19/16 19:00 07:00 Intake Total 720 ml 620 ml Output Total 800 ml 1250 ml Balance -80 ml -630 ml Free Water 430 ml 400 ml IV Total 110 ml Tube Feeding 180 ml 220 ml Output Urine Total 800 ml 1250 ml # Bowel Movements 3 Laboratory Tests Test 06/19/16 09:25 Sodium Level 146 mEQ/L (135-145) H Potassium Level 4.1 mEQ/L (3.4-4.9) Chloride Level 108 mEQ/L (98-107) H Carbon Dioxide Level 23 mEQ/L (20-30) Anion Gap 15 (5-15) Blood Urea Nitrogen 17 mg/dL (7-23) Creatinine 1.0 mg/dL (0.7-1.2) Estimat Glomerular Filtration Rate > 60 mL/min (>60) Glucose Level 123 mg/dL (74-106) H Calcium Level 9.3 mg/dL (8.6-10.2) Total Bilirubin 0.4 mg/dL (0.0-1.2) Aspartate Amino Transf (AST/SGOT) 38 U/L (5-40) Alanine Aminotransferase (ALT/SGPT) 54 U/L (3-41) H Alkaline Phosphatase 167 U/L (40-129) H Total Protein 7.3 g/dL (6.6-8.7) Albumin 2.3 g/dL (3.5-5.2) L Globulin 5.0 g/dL Albumin/Globulin Ratio 0.4 (1.0-2.7) L Height (Feet): 5 Height (Inches): 11.00 Weight (Pounds): 165 Objective Awake alert but confused cvs rrr lungs cta abd soft non tender Right hand palpable radial pulses Right distal finger dry gangrene 2+ femoral 2+ popliteal 3+ DP palpable pulses Bilateral distal toe gangrene Assessment/Plan Assessment Admitted with DKA & sepsis Hx of DIC Peripheral foot and right hand arterial embolic phenomenon Palpable radial foot pulses with normal duplex exam Hx of thrombocytopenia UTI fungal MRSA Renal failure-- resolving Encephalopathy- improving Plan Abx per ID Has palpable wrist/ foot pulses and will need gangrene amputation once fully demarcated Hand plastic surgery eval re right finger gangrene amputation Podiatry for bilateral TMA once fully demarcated Anticoagulate per heme Decub precautions Nutrition ? PEG D/C planning once medically cleared NINA DOMINGO Jun 19, 2016 15:04
--- NOTE | 2016-06-19 15:33 | Nephrology Progress Note ---
Assessment/Plan Problem List: (1) Hypovolemic shock (2) Metabolic acidosis (3) Hypernatremia (4) Altered level of consciousness (5) Acute renal failure (6) Encephalopathy (7) Ischemia of digits of hand (8) Ischemia of extremity (9) Rhabdomyolysis Plan creatinine 1.4 04/2016 continue hydration,,serial lytes, reduce iv rate, grave prognosis , severe rhabdo iv with bicarb, ck lower can stop bicarb parish improving replace k, iv adjusted--hypotonic fluids Subjective ROS Limited/Unobtainable: Yes Objective Objective Last 24 Hour Vital Signs Date Time Temp Pulse Resp B/P Pulse Ox O2 Delivery O2 Flow Rate FiO2 06/19/16 12:02 98.1 82 19 121/75 97 Nasal Cannula 2.0 06/19/16 09:34 93 135/81 06/19/16 08:15 98.3 93 21 135/93 95 Room Air 06/19/16 07:59 Nasal Cannula 2.0 28 06/19/16 07:58 96 Nasal Cannula 2.0 28 06/19/16 04:00 98.1 89 20 138/75 10 Room Air 06/19/16 00:00 98.4 78 20 131/61 100 Room Air 06/18/16 20:58 78 127/79 06/18/16 20:00 98.7 78 20 127/79 95 Nasal Cannula 2.0 06/18/16 16:00 97.9 80 18 124/82 94 Nasal Cannula 2.0 Intake and Output 06/18/16 06/19/16 19:00 07:00 Intake Total 720 ml 620 ml Output Total 800 ml 1250 ml Balance -80 ml -630 ml Free Water 430 ml 400 ml IV Total 110 ml Tube Feeding 180 ml 220 ml Output Urine Total 800 ml 1250 ml # Bowel Movements 3 Laboratory Tests 06/19/16 09:25: Sodium Level 146H, Potassium Level 4.1, Chloride Level 108H, Carbon Dioxide Level 23, Anion Gap 15, Blood Urea Nitrogen 17, Creatinine 1.0, Estimat Glomerular Filtration Rate > 60, Glucose Level 123H, Calcium Level 9.3, Total Bilirubin 0.4, Aspartate Amino Transf (AST/SGOT) 38, Alanine Aminotransferase ( ALT/SGPT) 54H, Alkaline Phosphatase 167H, Total Protein 7.3, Albumin 2.3L, Globulin 5.0, Albumin/Globulin Ratio 0.4L Height (Feet): 5 Height (Inches): 11.00 Weight (Pounds): 165 General Appearance: no apparent distress, confused EENT: normal ENT inspection Neck: normal alignment Cardiovascular: normal rate Respiratory/Chest: lungs clear Abdomen: non tender Extremities: moderate edema Neurologic: motor weakness SHASTA REDDY Jun 19, 2016 15:33
--- NOTE | 2016-06-19 15:39 | General Progress Note ---
Assessment/Plan Assessment/Plan Assessment: 1. Leukocytosis- has improved 2. Anemia 2/2 chronic disease - patient is JW, refusing blood transfusions, is on epogen and iron 3. Bilateral DVTs of the lower extremities - is s/p ivc fitler (retrievable) given anemia and thrombocytopenia 4. Thrombocytopenia - likely 2/2 infection and consumptive state -markedly improved, now >150k 5. Toe ischemia and microvascular ischemia 6. ARF due to severe rhabdo- improved 7. Dehydration-- improved 8. Shock--improved 9. DKA-improved Recommendations: - Continue epogen - Continue IV iron - Refusing blood products - Hgb goal >7 - Plt goal >10k - Abx to continue per ID - DW Staff Sincerely, Dario Henderson MD Subjective Constitutional: Denies: chills, diaphoresis, fever, malaise, no symptoms, other , weakness HEENT: Denies: blurred vision, double vision, ear discharge, ear pain, eye pain , mouth pain, mouth swelling, no symptoms, nose congestion, nose pain, other, tearing, throat pain, throat swelling Cardiovascular: Denies: chest pain, edema, irregular heart rate, lightheadedness, no symptoms, other, palpitations, syncope Respiratory: Denies: SOB at rest, SOB with excertion, cough, no symptoms, orthopnea, other, shortness of breath, sputum, stridor, wheezing Gastrointestinal/Abdominal: Denies: abdomen distended, abdominal pain, black stools, blood in stool, constipated, diarrhea, difficulty swallowing, nausea, no symptoms, other, poor appetite, poor fluid intake, rectal bleeding, tarry stools, vomiting Genitourinary: Denies: burning, discharge, flank pain, frequency, hematuria, incontinence, no symptoms, other, pain, urgency Neurologic/Psychiatric: Denies: anxiety, depressed, emotional problems, headache, no symptoms, numbness, other, paresthesia, pre-existing deficit, seizure, tingling, tremors, weakness Endocrine: Denies: excessive sweating, flushing, increased hunger, increased thirst, increased urine, intolerance to cold, intolerance to heat, no symptoms, other, unexplained weight gain, unexplained weight loss Allergies: Coded Allergies: No Known Allergies (Unverified , 05/30/16) Subjective sleeping, not bleeding overnight Objective Last 24 Hour Vital Signs Date Time Temp Pulse Resp B/P Pulse Ox O2 Delivery O2 Flow Rate FiO2 06/19/16 12:02 98.1 82 19 121/75 97 Nasal Cannula 2.0 06/19/16 09:34 93 135/81 06/19/16 08:15 98.3 93 21 135/93 95 Room Air 06/19/16 07:59 Nasal Cannula 2.0 28 06/19/16 07:58 96 Nasal Cannula 2.0 28 06/19/16 04:00 98.1 89 20 138/75 10 Room Air 06/19/16 00:00 98.4 78 20 131/61 100 Room Air 06/18/16 20:58 78 127/79 06/18/16 20:00 98.7 78 20 127/79 95 Nasal Cannula 2.0 06/18/16 16:00 97.9 80 18 124/82 94 Nasal Cannula 2.0 Intake and Output 06/18/16 06/19/16 19:00 07:00 Intake Total 720 ml 620 ml Output Total 800 ml 1250 ml Balance -80 ml -630 ml Free Water 430 ml 400 ml IV Total 110 ml Tube Feeding 180 ml 220 ml Output Urine Total 800 ml 1250 ml # Bowel Movements 3 Laboratory Tests 06/19/16 09:25: Sodium Level 146H, Potassium Level 4.1, Chloride Level 108H, Carbon Dioxide Level 23, Anion Gap 15, Blood Urea Nitrogen 17, Creatinine 1.0, Estimat Glomerular Filtration Rate > 60, Glucose Level 123H, Calcium Level 9.3, Total Bilirubin 0.4, Aspartate Amino Transf (AST/SGOT) 38, Alanine Aminotransferase ( ALT/SGPT) 54H, Alkaline Phosphatase 167H, Total Protein 7.3, Albumin 2.3L, Globulin 5.0, Albumin/Globulin Ratio 0.4L Height (Feet): 5 Height (Inches): 11.00 Weight (Pounds): 165 General Appearance: alert EENT: TMs normal Neck: supple Cardiovascular: regular rhythm Respiratory/Chest: lungs clear Abdomen: non tender Extremities: normal range of motion Edema: 1+ Leg (L), 1+ Leg (R) Edema: mild edema Neurologic: no motor/sensory deficits Skin: warm/dry Dario Henderson Jun 19, 2016 15:39
[2016-06-19 16:00] VITALS: BP 147/93
[2016-06-19 20:00] VITALS: BP 144/82
--- NOTE | 2016-06-19 20:02 | General Progress Note ---
Assessment/Plan Assessment/Plan Assessment (1) Hypovolemic shock - improved (2) Metabolic acidosis - improved (3) Hypernatremia - improved (4) Acute renal failure - improved (5) Encephalopathy (6) Ischemia of digits of hand (7) Rhabdomyolysis (8) Poor po, suspect will need PEG even if passes swallow evaluation Recommendations - continue NGT feeds - re-evaluate swallow function in am - will likely need PEG, even if passes swallow eval - Will discuss with sister and mother re PEG placement Subjective Allergies: Coded Allergies: No Known Allergies (Unverified , 05/30/16) Subjective awake minimally verbal or interactive on NGT feeds over weekend d/w Mother re possibility of PEG Objective Last 24 Hour Vital Signs Date Time Temp Pulse Resp B/P Pulse Ox O2 Delivery O2 Flow Rate FiO2 06/19/16 16:00 97.9 84 16 147/93 100 06/19/16 12:02 98.1 82 19 121/75 97 Nasal Cannula 2.0 06/19/16 09:34 93 135/81 06/19/16 08:15 98.3 93 21 135/93 95 Room Air 06/19/16 07:59 Nasal Cannula 2.0 28 06/19/16 07:58 96 Nasal Cannula 2.0 28 06/19/16 04:00 98.1 89 20 138/75 10 Room Air 06/19/16 00:00 98.4 78 20 131/61 100 Room Air 06/18/16 20:58 78 127/79 06/18/16 20:00 98.7 78 20 127/79 95 Nasal Cannula 2.0 Intake and Output 06/18/16 06/19/16 19:00 07:00 Intake Total 720 ml 620 ml Output Total 800 ml 1250 ml Balance -80 ml -630 ml Free Water 430 ml 400 ml IV Total 110 ml Tube Feeding 180 ml 220 ml Output Urine Total 800 ml 1250 ml # Bowel Movements 3 Laboratory Tests 06/19/16 09:25: Sodium Level 146H, Potassium Level 4.1, Chloride Level 108H, Carbon Dioxide Level 23, Anion Gap 15, Blood Urea Nitrogen 17, Creatinine 1.0, Estimat Glomerular Filtration Rate > 60, Glucose Level 123H, Calcium Level 9.3, Total Bilirubin 0.4, Aspartate Amino Transf (AST/SGOT) 38, Alanine Aminotransferase ( ALT/SGPT) 54H, Alkaline Phosphatase 167H, Total Protein 7.3, Albumin 2.3L, Globulin 5.0, Albumin/Globulin Ratio 0.4L Height (Feet): 5 Height (Inches): 11.00 Weight (Pounds): 165 Objective Debilitated AA man NCAT supple CTA RRR Soft ND NT (+) ischemic changes in digits DL CABRERA Jun 19, 2016 20:01
[2016-06-19] MEDS: Epogen (for non ESRD use) SUBQ SCH (21:15)
[2016-06-20] VITALS (7 sets, daily range): BP systolic 140–153; BP diastolic 83–117
[2016-06-20] MEDS: NovoLOG Insulin Flexpen SUBQ SCH ×4 (00:56→18:24)
--- NOTE | 2016-06-20 02:27 | Progress Note ---
DATE: 06/20/2016 CARDIOLOGY PROGRESS NOTE: SUBJECTIVE: The patient is increasingly more alert. Pain appears controlled. He remains on NG-tube. Swallow evaluation pending. OBJECTIVE: VITAL SIGNS: Blood pressure 147/93, pulse 84, and respiratory rate 16. NECK: Supple. LUNGS: Clear. CARDIAC: Regular normal S1, S2 with a fourth heart sound. ABDOMEN: Soft. EXTREMITIES: No edema. Ischemic digits are dry . LABORATORY DATA: Labs today sodium 146, potassium 4.1, bicarbonate 23, BUN 17, and creatinine 1.0. Albumin 2.3. IMPRESSION: 1. Rhabdomyolysis, resolved. 2. Severe dehydration and hypernatremia, improved. 3. Hyperkalemia, resolved. 4. Diabetic ketoacidosis, recovered. 5. Severe protein-calorie malnutrition on NG-tube feedings. 6. Dysphagia awaiting re-evaluation of swallow mechanism. 7. Anemia status post transfusions chronic disease and chronic kidney disease. 8. Peripheral artery disease with ischemic digits, now stabilizing. PLAN: Await swallow evaluation. Continue hydration with hypotonic fluids. Skin care. Pain control. Insulin titration. Hold further cardiovascular medications and G-tube placement. We will resume angiotensin-converting enzyme inhibitor therapy at that time. Morales Serrano M.D. DR: Jose Antonio JOB#: [id number] CC:
--- NOTE | 2016-06-20 02:27 | Progress Note ---
DATE: 06/18/2016 CARDIOLOGY PROGRESS NOTE SUBJECTIVE: The patient remains more alert. No immediate vascular or plastic surgery intervention recommended. The patient remains NPO due to dysphagia. OBJECTIVE: VITAL SIGNS: Blood pressure 153/81, pulse 90, respirations 20, and afebrile. SKIN: Dry gangrenous changes. LUNGS: Bilateral breath sounds with no wheezing. HEART: Regular rhythm and rate. Normal S1 and S2 with a fourth heart sound. ABDOMEN: Soft and nontender. LABORATORY DATA: White count 8.3, hemoglobin 8.5, and platelet count 285,000. Sodium 149, potassium 4.0, chloride 112, bicarbonate 21, BUN 19, and creatinine 1.1. Albumin is 2.1. IMPRESSION: 1. Dehydration and hypernatremia slowly improving. 2. Hypovolemia, recovering. 3. Hyperchloremia, recovering. 4. Acute renal failure, resolved. 5. Transaminitis, improving. 6. Severe protein-calorie malnutrition with dysphagia. 7. Awaiting swallow evaluation. 8. Anemia multifactorial and status post transfusion 117. 9. 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 10. Hypovolemic shock, resolved. 11. Diabetic ketoacidosis, resolved. PLAN: 1. Continue hypotonic IV fluids. 2. Monitor hemoglobin and transfuse if less than 8 grams. 3. Antimicrobials. 4. DVT and stress ulcer prophylaxis. 5. Await swallow evaluation. 6. May need G-tube. 7. Titrate insulin. 8. Anti-platelet therapy. Morales Serrano M.D. DR: IGNACIO JOB#: [id number] CC:
[2016-06-20] MEDS: CEFTAROLINE IV SCH ×2 (05:30→18:17)
[2016-06-20] MEDS: NS IV SCH ×2 (05:30→18:17)
--- NOTE | 2016-06-20 05:57 | General Progress Note ---
Assessment/Plan Problem List: (1) Acute renal failure ICD Codes: N17.9 - Acute kidney failure, unspecified SNOMED: 57157563 Qualifiers: Qualified Codes: N17.0 - Acute kidney failure with tubular necrosis (2) Encephalopathy ICD Codes: G93.40 - Encephalopathy, unspecified SNOMED: 66051470, 253671411 (3) DKA (diabetic ketoacidoses) ICD Codes: E13.10 - Other specified diabetes mellitus with ketoacidosis without coma SNOMED: 604174751, 18746091 Qualifiers: Qualified Codes: E13.11 - Other specified diabetes mellitus with ketoacidosis with coma (4) Leukocytosis ICD Codes: D72.829 - Elevated white blood cell count, unspecified SNOMED: 968850133, 869218972 Qualifiers: Qualified Codes: D72.829 - Elevated white blood cell count, unspecified (5) Altered level of consciousness ICD Codes: R40.4 - Transient alteration of awareness SNOMED: 7989787 Status: stable, progressing Assessment/Plan cont ngt diabetes rx monitor bs wound care antiplt rx abx per ID repeat swallow eval this am possible GT if fails no immediated surgical intervention needed per podiatry and plastic surgery Subjective ROS Limited/Unobtainable: Yes Constitutional: Reports: malaise, weakness HEENT: Reports: no symptoms Cardiovascular: Reports: no symptoms Respiratory: Reports: no symptoms Gastrointestinal/Abdominal: Reports: difficulty swallowing Genitourinary: Reports: no symptoms Neurologic/Psychiatric: Reports: pre-existing deficit Endocrine: Reports: no symptoms Hematologic/Lymphatic: Reports: anemia Allergies: Coded Allergies: No Known Allergies (Unverified , 05/30/16) All Systems: reviewed and negative except above Subjective no events. w/o complaints. mostly confused. answers some simple questions. denies pain or sob. gangrene stable. no fevers restrained- tries to pull out iv and ngt. gi noted. repeat swallow eval pending Objective Last 24 Hour Vital Signs Date Time Temp Pulse Resp B/P Pulse Ox O2 Delivery O2 Flow Rate FiO2 06/20/16 04:00 98.1 88 20 149/90 Nasal Cannula 2.0 06/20/16 00:00 97.9 81 20 140/85 98 Nasal Cannula 2.0 06/19/16 21:55 96 Room Air 06/19/16 21:55 Room Air 06/19/16 21:14 91 144/82 06/19/16 20:00 97.7 91 18 144/82 96 Room Air 06/19/16 16:00 97.9 84 16 147/93 100 06/19/16 12:02 98.1 82 19 121/75 97 Nasal Cannula 2.0 06/19/16 09:34 93 135/81 06/19/16 08:15 98.3 93 21 135/93 95 Room Air 06/19/16 07:59 Nasal Cannula 2.0 28 06/19/16 07:58 96 Nasal Cannula 2.0 28 Intake and Output 06/19/16 06/20/16 19:00 07:00 Intake Total 230 ml 290 ml Output Total 800 ml 700 ml Balance -570 ml -410 ml Free Water 150 ml 100 ml IV Total 110 ml Tube Feeding 80 ml 80 ml Output Urine Total 800 ml 700 ml # Bowel Movements 1 Laboratory Tests 06/19/16 09:25: Sodium Level 146H, Potassium Level 4.1, Chloride Level 108H, Carbon Dioxide Level 23, Anion Gap 15, Blood Urea Nitrogen 17, Creatinine 1.0, Estimat Glomerular Filtration Rate > 60, Glucose Level 123H, Calcium Level 9.3, Total Bilirubin 0.4, Aspartate Amino Transf (AST/SGOT) 38, Alanine Aminotransferase ( ALT/SGPT) 54H, Alkaline Phosphatase 167H, Total Protein 7.3, Albumin 2.3L, Globulin 5.0, Albumin/Globulin Ratio 0.4L Height (Feet): 5 Height (Inches): 11.00 Weight (Pounds): 165 Objective eneral Appearance: WD/WN, alert, confused. NGT in place Neck: supple Cardiovascular: regular rhythm Respiratory/Chest: lungs clear Abdomen: normal bowel sounds, non tender, soft, no organomegaly, no mass Edema: mild edema Neurologic: alert Skin: cyanotic - right hand fingers. cyanotic toes/forefoot bilaterally. + blisters DARYN JEREZ Jun 20, 2016 05:57
--- NOTE | 2016-06-20 08:07 | Geriatric Medicine Prog Note ---
DATE: 06/19/2016 SUBJECTIVE: The patient is stable____ OBJECTIVE: VITAL SIGNS: Blood pressure 140/80, pulse 80, respiratory rate 20, and temperature is 97 degrees. RESPIRATORY: clear,[facility]- regular LABORATORY DATA: Accu-Chek glucose is 106 ASSESSMENT:: Diabetes melitusd stable PLANS:Continue Acuchecks QID with sliding scale Novolog Danny Campbell M.D. DR: ZACKERY JOB#: [id number] CC: ESME
[2016-06-20] MEDS: Levemir Flexpen SUBQ SCH ×2 (09:00→22:46)
[2016-06-20] MEDS: Docusate 100mg tablet NG SCH ×2 (09:08→18:16)
[2016-06-20] MEDS: Metoprolol 50mg tab NG SCH ×2 (09:09→22:45)
[2016-06-20] MEDS: KCl 10% 40mEq/30ml liquid NG SCH (09:10)
[2016-06-20 09:51] LABS: BASOPHILS % (AUTO) 0.7 % (0.0-2.0); EOSINOPHILS % (AUTO) 1.9 % (0.0-3.0); LYMPHOCYTES % (AUTO) 11.7 % (20.0-45.0); MEAN CORPUSCULAR HEMOGLOBIN 24.9 PG (27.0-31.0); MEAN CORPUSCULAR VOLUME 83 FL (80-99); MONOCYTES % (AUTO) 4.3 % (1.0-10.0); NEUTROPHILS % (AUTO) 81.3 % (45.0-75.0); PLATELET COUNT 314 K/UL (150-450); RED BLOOD COUNT 3.86 M/UL (4.70-6.10); RED CELL DISTRIBUTION WIDTH 18.5 % (11.6-14.8); WHITE BLOOD COUNT 9.1 K/UL (4.8-10.8)
[2016-06-20 09:57] LABS: ANION GAP 18 (5-15); CARBON DIOXIDE 22 mEQ/L (20-30); CHLORIDE 105 mEQ/L (98-107); CREATININE 0.9 mg/dL (0.7-1.2); GLOMERULAR FILTRATION RATE > 60 mL/min (>60); HEMOLYSIS 33; POTASSIUM 4.5 mEQ/L (3.4-4.9); SODIUM 145 mEQ/L (135-145)
[2016-06-20 10:27] LABS: MAGNESIUM 1.8 mg/dL (1.7-2.5); PHOSPHORUS 4.6 mg/dL (2.5-4.8)
--- NOTE | 2016-06-20 10:40 | Infectious Diseases Prog Note ---
"Assessment/Plan Assessment/Plan antibiotics : ceftaroline A 1. leucocytosis improving 2. renal failure improving 3. nasal MRSA colonization 4. increased LFT 5. thrombocytopenia 6. DKA 7. fungal UTI s/p rx 8. MRSA | coag neg staph sepsis 9. cyanotic toes and right fingers P 1. continue ceftaroline 2. will follow up cultures 3. plan per podiatry | vascular surgery Subjective ROS Limited/Unobtainable: Yes Allergies: Coded Allergies: No Known Allergies (Unverified , 05/30/16) Objective Vital Signs Last 24 Hour Vital Signs Date Time Temp Pulse Resp B/P Pulse Ox O2 Delivery O2 Flow Rate FiO2 06/20/16 09:09 95 142/91 06/20/16 08:00 97.7 95 20 142/91 100 Nasal Cannula 2.0 06/20/16 04:00 98.1 88 20 149/90 Nasal Cannula 2.0 06/20/16 00:00 97.9 81 20 140/85 98 Nasal Cannula 2.0 06/19/16 21:55 96 Room Air 06/19/16 21:55 Room Air 06/19/16 21:14 91 144/82 06/19/16 20:00 97.7 91 18 144/82 96 Room Air 06/19/16 16:00 97.9 84 16 147/93 100 06/19/16 12:02 98.1 82 19 121/75 97 Nasal Cannula 2.0 Height (Feet): 5 Height (Inches): 11.00 Weight (Pounds): 165 Respiratory/Chest: lungs clear Cardiovascular: normal rate, regular rhythm, no gallop/murmur Abdomen: soft, non tender Extremities: other Microbiology Date/Time Source Procedure Growth Status 06/18/16 12:46 Foot Left Gram Stain - Final Resulted 06/18/16 12:46 Wound Culture - Preliminary Staphylococcus Sp Coag Neg Bacillus Sp Not B. Anthracis Resulted Laboratory Tests Test 06/20/16 09:15 White Blood Count 9.1 K/UL (4.8-10.8) Red Blood Count 3.86 M/UL (4.70-6.10) L Hemoglobin 9.6 G/DL (14.2-18.0) L Hematocrit 32.0 % (42.0-52.0) L Mean Corpuscular Volume 83 FL (80-99) Mean Corpuscular Hemoglobin 24.9 PG (27.0-31.0) L Mean Corpuscular Hemoglobin Concent 30.0 G/DL (32.0-36.0) L Red Cell Distribution Width 18.5 % (11.6-14.8) H Platelet Count 314 K/UL (150-450) Mean Platelet Volume 7.0 FL (6.5-10.1) Neutrophils (%) (Auto) 81.3 % (45.0-75.0) H Lymphocytes (%) (Auto) 11.7 % (20.0-45.0) L Monocytes (%) (Auto) 4.3 % (1.0-10.0) Eosinophils (%) (Auto) 1.9 % (0.0-3.0) Basophils (%) (Auto) 0.7 % (0.0-2.0) Sodium Level 145 mEQ/L (135-145) Potassium Level 4.5 mEQ/L (3.4-4.9) Chloride Level 105 mEQ/L (98-107) Carbon Dioxide Level 22 mEQ/L (20-30) Anion Gap 18 (5-15) H Blood Urea Nitrogen 18 mg/dL (7-23) Creatinine 0.9 mg/dL (0.7-1.2) Estimat Glomerular Filtration Rate > 60 mL/min (>60) Glucose Level 128 mg/dL (74-106) H Calcium Level 9.0 mg/dL (8.6-10.2) Phosphorus Level 4.6 mg/dL (2.5-4.8) Magnesium Level 1.8 mg/dL (1.7-2.5) Total Creatine Kinase 250 U/L (38-174) H Pro-B-Type Natriuretic Peptide Pending COLTON GONZALEZ Jun 20, 2016 10:40"
--- NOTE | 2016-06-20 13:05 | Podiatric Progress Note ---
Assessment/Plan Patient Shoaib De Anda is a 56 year old male who was admitted on Jun 07, 2016 at 18:35 with acute bilateral distal foot ischemia Problems: (1) Ischemia of foot (2) Post traumatic encephalopathy (3) DKA (diabetic ketoacidoses) (4) Altered level of consciousness Assessment/Plan - Dress left foot with weaving a 4x4 gauze between the 3rd and 4th interdigital space. If the gauze becomes saturated change more frequently or reinforce with kerlix - Monitor area daily for improvement - Patient will likely require surgery once the gangrene has fully demarcated Subjective Reason for consult Bilateral distal foot ischemia and gangrene Allergies: Coded Allergies: No Known Allergies (Unverified , 05/30/16) Subjective Patient is unable to communicate effectively Objective Exam Last 24 Hour Vital Signs Date Time Temp Pulse Resp B/P Pulse Ox O2 Delivery O2 Flow Rate FiO2 06/20/16 09:09 95 142/91 06/20/16 08:00 97.7 95 20 142/91 100 Nasal Cannula 2.0 06/20/16 04:00 98.1 88 20 149/90 Nasal Cannula 2.0 06/20/16 00:00 97.9 81 20 140/85 98 Nasal Cannula 2.0 06/19/16 21:55 96 Room Air 06/19/16 21:55 Room Air 06/19/16 21:14 91 144/82 06/19/16 20:00 97.7 91 18 144/82 96 Room Air 06/19/16 16:00 97.9 84 16 147/93 100 Laboratory Tests Test 06/20/16 09:15 White Blood Count 9.1 K/UL (4.8-10.8) Red Blood Count 3.86 M/UL (4.70-6.10) L Hemoglobin 9.6 G/DL (14.2-18.0) L Hematocrit 32.0 % (42.0-52.0) L Mean Corpuscular Volume 83 FL (80-99) Mean Corpuscular Hemoglobin 24.9 PG (27.0-31.0) L Mean Corpuscular Hemoglobin Concent 30.0 G/DL (32.0-36.0) L Red Cell Distribution Width 18.5 % (11.6-14.8) H Platelet Count 314 K/UL (150-450) Mean Platelet Volume 7.0 FL (6.5-10.1) Neutrophils (%) (Auto) 81.3 % (45.0-75.0) H Lymphocytes (%) (Auto) 11.7 % (20.0-45.0) L Monocytes (%) (Auto) 4.3 % (1.0-10.0) Eosinophils (%) (Auto) 1.9 % (0.0-3.0) Basophils (%) (Auto) 0.7 % (0.0-2.0) Sodium Level 145 mEQ/L (135-145) Potassium Level 4.5 mEQ/L (3.4-4.9) Chloride Level 105 mEQ/L (98-107) Carbon Dioxide Level 22 mEQ/L (20-30) Anion Gap 18 (5-15) H Blood Urea Nitrogen 18 mg/dL (7-23) Creatinine 0.9 mg/dL (0.7-1.2) Estimat Glomerular Filtration Rate > 60 mL/min (>60) Glucose Level 128 mg/dL (74-106) H Calcium Level 9.0 mg/dL (8.6-10.2) Phosphorus Level 4.6 mg/dL (2.5-4.8) Magnesium Level 1.8 mg/dL (1.7-2.5) Total Creatine Kinase 250 U/L (38-174) H Pro-B-Type Natriuretic Peptide 1159 pg/mL (0-125) H Microbiology Date/Time Source Procedure Growth Status 06/10/16 21:15 Blood Blood Culture - Final Staphylococcus Aureus - Mrsa Staphylococcus Sp Coag Neg Complete 06/07/16 20:45 Nasal Nares MRSA Culture - Final Staphylococcus Aureus - Mrsa Complete 06/10/16 12:30 Urine,Clean Catch Urine Culture - Final Eboni Albicans Complete 06/18/16 12:46 Foot Left Gram Stain - Final Resulted 06/18/16 12:46 Wound Culture - Preliminary Staphylococcus Sp Coag Neg Bacillus Sp Not B. Anthracis Resulted Exam Narrative Left foot ischemia is more proximal than right. Left foot ischemic changes to the level of the metatarsal heads. Right foot ischemic changes are isolated to the level of the toes. Bilateral foot with history of blistering. Left foot blister has auto lanced. Drainage is decreasing and maceration is improving. Gangrene has not fully demarcated yet. Dermatological Wound Assessment : Exudate Amount: Scant Lang Klein DPM Jun 20, 2016 13:05
--- NOTE | 2016-06-20 13:53 | Diagnostic Imaging Report ---
Indication: Post nasogastric tube placement Technique: One view of the chest Comparison: 06/19/2016 and 06/16/2016 Findings: Nasogastric tube projects beyond the edge of the image, well within the stomach mild interstitial congestive changes are again demonstrated. Some atelectasis is seen at the left lung base. The heart size is normal. Pleural spaces are clear. There are median sternotomy sutures Impression: Satisfactory nasogastric intubation Other findings as noted This agrees with the preliminary interpretation provided overnight by Dr. oLja
--- NOTE | 2016-06-20 14:59 | Wound Care Consultation ---
Wound Assessment Wound Assessment : Wound Number: #1 Wound Present on Admission: No New Wound: Yes Status Change of Wound: No Wound Location Body Site: sacral Wound Type: pressure ulcer Trista Test: Does not Trista Pressure Ulcer Stage: II - denuded blister Wound Thickness: Partial Thickness Wound Length: 1.0 Wound Width: 1.0 Wound Depth: 0.1 Percent of Wound [place]/Red: 100 Wound Drainage Description: Serosanguineous Wound Drainage Amount: Scant Wound Drainage Odor: None/Absent Tissue Surrounding Wound: Denuded Wound General Appearance: Reddened Wound Comment #1 Sacral pressure ulcer stage II. Upon reassessment noted good progress to sacral stage II site, current treatment is effective, noted decrease in size, resolving , wound bed pink, no s /s of infection,no facial grimacing noted upon assessment. Patient provided with gentle pericare, repositioned, offloaded affected area, remains comfortable at this time. remains clean and dry. Continue current treatment as ordered. DIANE MATAMOROS Jun 20, 2016 14:59
--- NOTE | 2016-06-20 16:17 | General Progress Note ---
Assessment/Plan Assessment/Plan Assessment (1) Hypovolemic shock - improved (2) Metabolic acidosis - improved (3) Hypernatremia - improved (4) Acute renal failure - improved (5) Encephalopathy (6) Ischemia of digits of hand (7) Rhabdomyolysis (8) Poor po, suspect will need PEG even if passes swallow evaluation Recommendations - continue NGT feeds --> change to night cycle to help with daytime appetite - evaluate swallow function - will likely need PEG, but will give PO trial a chance Subjective Allergies: Coded Allergies: No Known Allergies (Unverified , 05/30/16) Subjective awake minimally verbal or interactive on NGT feeds over weekend d/w Sister re possibility of PEG Sister wants to hold off on PEG She believes patient can eat adequate by mouth Objective Last 24 Hour Vital Signs Date Time Temp Pulse Resp B/P Pulse Ox O2 Delivery O2 Flow Rate FiO2 06/20/16 12:00 97.3 86 20 145/83 98 Room Air 06/20/16 11:55 97.3 86 20 145/83 98 Nasal Cannula 2.0 06/20/16 09:09 95 142/91 06/20/16 08:00 97.7 95 20 142/91 100 Nasal Cannula 2.0 06/20/16 04:00 98.1 88 20 149/90 Nasal Cannula 2.0 06/20/16 00:00 97.9 81 20 140/85 98 Nasal Cannula 2.0 06/19/16 21:55 96 Room Air 06/19/16 21:55 Room Air 06/19/16 21:14 91 144/82 06/19/16 20:00 97.7 91 18 144/82 96 Room Air Intake and Output 06/19/16 06/20/16 19:00 07:00 Intake Total 230 ml 550 ml Output Total 800 ml 1150 ml Balance -570 ml -600 ml Free Water 150 ml 220 ml IV Total 110 ml Tube Feeding 80 ml 220 ml Output Urine Total 800 ml 1150 ml # Bowel Movements 1 Laboratory Tests 06/20/16 09:15: White Blood Count 9.1, Red Blood Count 3.86L, Hemoglobin 9.6L, Hematocrit 32.0L , Mean Corpuscular Volume 83, Mean Corpuscular Hemoglobin 24.9L, Mean Corpuscular Hemoglobin Concent 30.0L, Red Cell Distribution Width 18.5H, Platelet Count 314, Mean Platelet Volume 7.0, Neutrophils (%) (Auto) 81.3H, Lymphocytes (%) (Auto) 11.7L, Monocytes (%) (Auto) 4.3, Eosinophils (%) (Auto) 1.9, Basophils (%) (Auto) 0.7, Sodium Level 145, Potassium Level 4.5, Chloride Level 105, Carbon Dioxide Level 22, Anion Gap 18H, Blood Urea Nitrogen 18, Creatinine 0.9, Estimat Glomerular Filtration Rate > 60, Glucose Level 128H, Calcium Level 9.0, Phosphorus Level 4.6, Magnesium Level 1.8, Total Creatine Kinase 250H, Pro-B-Type Natriuretic Peptide 1159H Height (Feet): 5 Height (Inches): 11.00 Weight (Pounds): 165 Objective Debilitated AA man NCAT supple CTA RRR Soft ND NT (+) ischemic changes in digits DL CABRERA Jun 20, 2016 16:17
--- NOTE | 2016-06-20 16:44 | General Progress Note ---
Assessment/Plan Assessment/Plan Assessment: 1. Leukocytosis - has improved, now is wnl 2. Anemia 2/2 chronic disease - patient is JW, refusing blood transfusions, is on epogen and iron 3. Bilateral DVTs of the lower extremities - is s/p ivc fitler (retrievable) given anemia and thrombocytopenia 4. Thrombocytopenia - likely 2/2 infection and consumptive state -markedly improved, now >150k 5. Toe ischemia and microvascular ischemia 6. ARF due to severe rhabdo- improved 7. Dehydration - improved 8. Shock - improved 9. DKA - improved Recommendations: - Continue epogen - Continue IV iron - Consider to restart tomorrow - consider lovenox or coumadin if h/h stable tomorrow - Hgb goal >7 - Plt goal >10k - Abx to continue per ID - DW Staff Sincerely, Dario Henderson MD Subjective Constitutional: Reports: no symptoms HEENT: Reports: no symptoms Cardiovascular: Reports: no symptoms Respiratory: Reports: no symptoms Gastrointestinal/Abdominal: Reports: poor appetite Genitourinary: Reports: no symptoms Neurologic/Psychiatric: Reports: no symptoms Endocrine: Reports: no symptoms Hematologic/Lymphatic: Reports: anemia Allergies: Coded Allergies: No Known Allergies (Unverified , 05/30/16) Subjective sleeping, is not bleeding overnight Objective Last 24 Hour Vital Signs Date Time Temp Pulse Resp B/P Pulse Ox O2 Delivery O2 Flow Rate FiO2 06/20/16 12:00 97.3 86 20 145/83 98 Room Air 06/20/16 11:55 97.3 86 20 145/83 98 Nasal Cannula 2.0 06/20/16 09:09 95 142/91 06/20/16 08:00 97.7 95 20 142/91 100 Nasal Cannula 2.0 06/20/16 04:00 98.1 88 20 149/90 Nasal Cannula 2.0 06/20/16 00:00 97.9 81 20 140/85 98 Nasal Cannula 2.0 06/19/16 21:55 96 Room Air 06/19/16 21:55 Room Air 06/19/16 21:14 91 144/82 06/19/16 20:00 97.7 91 18 144/82 96 Room Air Intake and Output 06/19/16 06/20/16 19:00 07:00 Intake Total 230 ml 550 ml Output Total 800 ml 1150 ml Balance -570 ml -600 ml Free Water 150 ml 220 ml IV Total 110 ml Tube Feeding 80 ml 220 ml Output Urine Total 800 ml 1150 ml # Bowel Movements 1 Laboratory Tests 06/20/16 09:15: White Blood Count 9.1, Red Blood Count 3.86L, Hemoglobin 9.6L, Hematocrit 32.0L , Mean Corpuscular Volume 83, Mean Corpuscular Hemoglobin 24.9L, Mean Corpuscular Hemoglobin Concent 30.0L, Red Cell Distribution Width 18.5H, Platelet Count 314, Mean Platelet Volume 7.0, Neutrophils (%) (Auto) 81.3H, Lymphocytes (%) (Auto) 11.7L, Monocytes (%) (Auto) 4.3, Eosinophils (%) (Auto) 1.9, Basophils (%) (Auto) 0.7, Sodium Level 145, Potassium Level 4.5, Chloride Level 105, Carbon Dioxide Level 22, Anion Gap 18H, Blood Urea Nitrogen 18, Creatinine 0.9, Estimat Glomerular Filtration Rate > 60, Glucose Level 128H, Calcium Level 9.0, Phosphorus Level 4.6, Magnesium Level 1.8, Total Creatine Kinase 250H, Pro-B-Type Natriuretic Peptide 1159H Height (Feet): 5 Height (Inches): 11.00 Weight (Pounds): 165 General Appearance: no apparent distress EENT: TMs normal Neck: supple Cardiovascular: regular rhythm Respiratory/Chest: no respiratory distress Abdomen: non tender Extremities: non-tender Edema: 1+ Leg (L), 1+ Leg (R) Edema: mild edema Neurologic: oriented x 3 Skin: warm/dry Dario Henderson Jun 20, 2016 16:44
--- NOTE | 2016-06-20 17:29 | Nephrology Progress Note ---
Assessment/Plan Problem List: (1) Hypovolemic shock (2) Metabolic acidosis (3) Hypernatremia (4) Altered level of consciousness (5) Acute renal failure (6) Encephalopathy (7) Ischemia of digits of hand (8) Ischemia of extremity (9) Rhabdomyolysis Plan creatinine 1.4 04/2016 continue hydration,,serial lytes, reduce iv rate, grave prognosis , severe rhabdo iv with bicarb, ck lower can stop bicarb [place] improving replace k, iv adjusted--hypotonic fluids Subjective ROS Limited/Unobtainable: Yes Objective Objective Last 24 Hour Vital Signs Date Time Temp Pulse Resp B/P Pulse Ox O2 Delivery O2 Flow Rate FiO2 06/20/16 16:00 97.0 104 18 153/117 98 Nasal Cannula 2.0 06/20/16 12:00 97.3 86 20 145/83 98 Room Air 06/20/16 11:55 97.3 86 20 145/83 98 Nasal Cannula 2.0 06/20/16 09:09 95 142/91 06/20/16 08:00 97.7 95 20 142/91 100 Nasal Cannula 2.0 06/20/16 04:00 98.1 88 20 149/90 Nasal Cannula 2.0 06/20/16 00:00 97.9 81 20 140/85 98 Nasal Cannula 2.0 06/19/16 21:55 96 Room Air 06/19/16 21:55 Room Air 06/19/16 21:14 91 144/82 06/19/16 20:00 97.7 91 18 144/82 96 Room Air Intake and Output 06/19/16 06/20/16 19:00 07:00 Intake Total 230 ml 550 ml Output Total 800 ml 1150 ml Balance -570 ml -600 ml Free Water 150 ml 220 ml IV Total 110 ml Tube Feeding 80 ml 220 ml Output Urine Total 800 ml 1150 ml # Bowel Movements 1 Laboratory Tests 06/20/16 09:15: White Blood Count 9.1, Red Blood Count 3.86L, Hemoglobin 9.6L, Hematocrit 32.0L , Mean Corpuscular Volume 83, Mean Corpuscular Hemoglobin 24.9L, Mean Corpuscular Hemoglobin Concent 30.0L, Red Cell Distribution Width 18.5H, Platelet Count 314, Mean Platelet Volume 7.0, Neutrophils (%) (Auto) 81.3H, Lymphocytes (%) (Auto) 11.7L, Monocytes (%) (Auto) 4.3, Eosinophils (%) (Auto) 1.9, Basophils (%) (Auto) 0.7, Sodium Level 145, Potassium Level 4.5, Chloride Level 105, Carbon Dioxide Level 22, Anion Gap 18H, Blood Urea Nitrogen 18, Creatinine 0.9, Estimat Glomerular Filtration Rate > 60, Glucose Level 128H, Calcium Level 9.0, Phosphorus Level 4.6, Magnesium Level 1.8, Total Creatine Kinase 250H, Pro-B-Type Natriuretic Peptide 1159H Height (Feet): 5 Height (Inches): 11.00 Weight (Pounds): 165 General Appearance: no apparent distress, confused EENT: normal ENT inspection Neck: normal alignment Cardiovascular: normal rate, regular rhythm Respiratory/Chest: lungs clear Abdomen: non tender Extremities: moderate edema Neurologic: motor weakness SHASTA REDDY Jun 20, 2016 17:29
--- NOTE | 2016-06-20 18:25 | General Progress Note ---
Assessment/Plan Problem List: (1) Acute renal failure ICD Codes: N17.9 - Acute kidney failure, unspecified SNOMED: 66423255 Qualifiers: Qualified Codes: N17.0 - Acute kidney failure with tubular necrosis (2) Encephalopathy ICD Codes: G93.40 - Encephalopathy, unspecified SNOMED: 18127725, 804519804 (3) DKA (diabetic ketoacidoses) ICD Codes: E13.10 - Other specified diabetes mellitus with ketoacidosis without coma SNOMED: 028981128, 28999209 Qualifiers: Qualified Codes: E13.11 - Other specified diabetes mellitus with ketoacidosis with coma (4) Leukocytosis ICD Codes: D72.829 - Elevated white blood cell count, unspecified SNOMED: 750799714, 131556649 Qualifiers: Qualified Codes: D72.829 - Elevated white blood cell count, unspecified (5) Altered level of consciousness ICD Codes: R40.4 - Transient alteration of awareness SNOMED: 4117636 Status: stable Assessment/Plan cont ngt diabetes rx monitor bs wound care antiplt rx abx per ID dc ngt po trials dc planning tomorrow no immediated surgical intervention needed per podiatry and plastic surgery Subjective ROS Limited/Unobtainable: Yes Constitutional: Reports: malaise, weakness HEENT: Reports: no symptoms Cardiovascular: Reports: no symptoms Respiratory: Reports: cough Gastrointestinal/Abdominal: Reports: difficulty swallowing Genitourinary: Reports: no symptoms Neurologic/Psychiatric: Reports: pre-existing deficit Endocrine: Reports: no symptoms Hematologic/Lymphatic: Reports: anemia Allergies: Coded Allergies: No Known Allergies (Unverified , 05/30/16) All Systems: reviewed and negative except above Subjective no events. w/o complaints. mostly confused. answers some simple questions. denies pain or sob. gangrene stable. no fevers restrained- tries to pull out iv and ngt. gi noted. passed repeat swallow eval. Objective Last 24 Hour Vital Signs Date Time Temp Pulse Resp B/P Pulse Ox O2 Delivery O2 Flow Rate FiO2 06/20/16 16:00 97.0 104 18 153/117 98 Nasal Cannula 2.0 06/20/16 12:00 97.3 86 20 145/83 98 Room Air 06/20/16 11:55 97.3 86 20 145/83 98 Nasal Cannula 2.0 06/20/16 09:09 95 142/91 06/20/16 08:00 97.7 95 20 142/91 100 Nasal Cannula 2.0 06/20/16 04:00 98.1 88 20 149/90 Nasal Cannula 2.0 06/20/16 00:00 97.9 81 20 140/85 98 Nasal Cannula 2.0 06/19/16 21:55 96 Room Air 06/19/16 21:55 Room Air 06/19/16 21:14 91 144/82 06/19/16 20:00 97.7 91 18 144/82 96 Room Air Intake and Output 06/19/16 06/20/16 19:00 07:00 Intake Total 230 ml 550 ml Output Total 800 ml 1150 ml Balance -570 ml -600 ml Free Water 150 ml 220 ml IV Total 110 ml Tube Feeding 80 ml 220 ml Output Urine Total 800 ml 1150 ml # Bowel Movements 1 Laboratory Tests 06/20/16 09:15: White Blood Count 9.1, Red Blood Count 3.86L, Hemoglobin 9.6L, Hematocrit 32.0L , Mean Corpuscular Volume 83, Mean Corpuscular Hemoglobin 24.9L, Mean Corpuscular Hemoglobin Concent 30.0L, Red Cell Distribution Width 18.5H, Platelet Count 314, Mean Platelet Volume 7.0, Neutrophils (%) (Auto) 81.3H, Lymphocytes (%) (Auto) 11.7L, Monocytes (%) (Auto) 4.3, Eosinophils (%) (Auto) 1.9, Basophils (%) (Auto) 0.7, Sodium Level 145, Potassium Level 4.5, Chloride Level 105, Carbon Dioxide Level 22, Anion Gap 18H, Blood Urea Nitrogen 18, Creatinine 0.9, Estimat Glomerular Filtration Rate > 60, Glucose Level 128H, Calcium Level 9.0, Phosphorus Level 4.6, Magnesium Level 1.8, Total Creatine Kinase 250H, Pro-B-Type Natriuretic Peptide 1159H Height (Feet): 5 Height (Inches): 11.00 Weight (Pounds): 165 Objective eneral Appearance: WD/WN, alert, confused. NGT in place Neck: supple Cardiovascular: regular rhythm Respiratory/Chest: lungs clear Abdomen: normal bowel sounds, non tender, soft, no organomegaly, no mass Edema: mild edema Neurologic: alert Skin: cyanotic - right hand fingers. cyanotic toes/forefoot bilaterally. + blisters DARYN JEREZ Jun 20, 2016 18:25
[2016-06-21] VITALS: BP 150/79
[2016-06-21 04:00] VITALS: BP 146/82
[2016-06-21] MEDS: CEFTAROLINE IV SCH (05:50)
[2016-06-21] MEDS: NS IV SCH (05:50)
[2016-06-21] MEDS: NovoLOG Insulin Flexpen SUBQ SCH ×2 (05:55→11:30)
--- NOTE | 2016-06-21 06:27 | Progress Note ---
DATE: 06/20/2016 CARDIOLOGY PROGRESS NOTE SUBJECTIVE: The patient had a swallow evaluation today and passed. Nutrition was started orally. the patient's gangrenous digits do not require surgical intervention at this time according to consultants. OBJECTIVE: VITAL SIGNS: Blood pressure 145/83, pulse 86, respirations 20, afebrile. NECK: Supple. LUNGS: Clear. CARDIAC: Regular. Normal S1, S2 with a fourth heart sound. ABDOMEN: Soft. EXTREMITIES: No edema. Right fingers and bilateral toes with distal gangrenous changes that are dry. LABORATORY AND DIAGNOSTIC DATA: White count 9.1, hematocrit 32. Potassium 4.5, BUN 18, creatinine 0.9, and glucose 128. Natriuretic peptide 1169. Chest x-ray reveals mild congestive changes. IMPRESSION: 1. Hypertensive heart disease with rising blood pressure trend. 2. Acute on chronic diastolic congestive heart failure. 3. Gangrenous digit status post sepsis with shock. 4. Diabetes mellitus. 5. Status post diabetic ketoacidosis. 6. Rhabdomyolysis, recovered. 7. Hypovolemic shock, resolved. PLAN: 1. Start angiotensin-converting enzyme inhibitor. 2. Diuresis x1. 3. Reassess for anti-lipid therapy. 4. Titrate insulin. 5. Advance oral intake. Morales Serrano M.D. DR: DOYLE JOB#: [id number] CC:
[2016-06-21 07:20] LABS: ANION GAP 19 (5-15); CALCIUM 9.4 mg/dL (8.6-10.2); CARBON DIOXIDE 22 mEQ/L (20-30); CHLORIDE 103 mEQ/L (98-107); GLOMERULAR FILTRATION RATE > 60 mL/min (>60); HEMOLYSIS 66; POTASSIUM 4.4 mEQ/L (3.4-4.9); SODIUM 144 mEQ/L (135-145)
[2016-06-21 08:00] VITALS: BP 136/97
[2016-06-21] MEDS ORDERED: PROCRIT20000 UNI2 SUBQ (08:03)
[2016-06-21] MEDS ORDERED: METOPROLOL TART50 MG NG (08:03)
[2016-06-21] MEDS ORDERED: LEVEMIR FL100 UNIT/1 SUBQ (08:03)
[2016-06-21] MEDS ORDERED: LISINOPRIL20 MG ORAL (08:03)
[2016-06-21] MEDS ORDERED: NOVOLOG100 UNITS1 SUBQ (08:03)
[2016-06-21 08:12] LABS: CHOLESTEROL/HDL RATIO 4.6 (3.3-4.4)
[2016-06-21] MEDS ORDERED: Lisinopril 20mg tab ORAL SCH (09:00)
[2016-06-21] MEDS: Levemir Flexpen SUBQ SCH (09:22)
[2016-06-21] MEDS: Docusate 100mg tablet NG SCH (09:26)
[2016-06-21] MEDS: Metoprolol 50mg tab NG SCH (09:26)
--- NOTE | 2016-06-21 09:56 | General Progress Note ---
Assessment/Plan Assessment/Plan Assessment: 1. Leukocytosis - has improved, now is wnl 2. Anemia 2/2 chronic disease - patient is JW, refusing blood transfusions, is on epogen and iron 3. Bilateral DVTs of the lower extremities - is s/p ivc fitler (retrievable) given anemia and thrombocytopenia 4. Thrombocytopenia - likely 2/2 infection and consumptive state -markedly improved, now >150k 5. Toe ischemia and microvascular ischemia 6. ARF due to severe rhabdo- improved 7. Dehydration - improved 8. Shock - improved 9. DKA - improved Recommendations: - Continue epogen - Continue IV iron - Restart lovenox or coumadin if h/h stable - Hgb goal >7 - Plt goal >10k - Abx to continue per ID - DW Staff Sincerely, Dario Henderson MD Subjective Constitutional: Reports: no symptoms HEENT: Reports: no symptoms Cardiovascular: Reports: no symptoms Respiratory: Reports: no symptoms Gastrointestinal/Abdominal: Reports: poor appetite Genitourinary: Reports: no symptoms Neurologic/Psychiatric: Reports: no symptoms Endocrine: Reports: no symptoms Hematologic/Lymphatic: Reports: anemia Allergies: Coded Allergies: No Known Allergies (Unverified , 05/30/16) Subjective sleeping, without bleeding overnight Objective Last 24 Hour Vital Signs Date Time Temp Pulse Resp B/P Pulse Ox O2 Delivery O2 Flow Rate FiO2 06/21/16 09:26 136/97 06/21/16 09:26 115 136/97 06/21/16 08:00 96.6 115 20 136/97 98 Nasal Cannula 2.0 06/21/16 04:00 98.1 82 20 146/82 96 Nasal Cannula 2.0 06/21/16 00:00 98.1 88 20 150/79 95 Nasal Cannula 2.0 06/20/16 22:45 96 150/89 06/20/16 19:35 Nasal Cannula 2.0 28 06/20/16 19:32 98 Nasal Cannula 2.0 28 06/20/16 19:00 98.3 96 18 150/89 98 Nasal Cannula 98.0 06/20/16 16:00 97.0 104 18 153/117 98 Nasal Cannula 2.0 06/20/16 12:00 97.3 86 20 145/83 98 Room Air 06/20/16 11:55 97.3 86 20 145/83 98 Nasal Cannula 2.0 Intake and Output 06/20/16 06/21/16 19:00 07:00 Intake Total 990 ml 350 ml Output Total 450 ml 2820 ml Balance 540 ml -2470 ml Intake Oral 240 ml 240 ml Free Water 600 ml IV Total 110 ml Tube Feeding 150 ml Output Urine Total 450 ml 2820 ml # Bowel Movements 1 Laboratory Tests 06/21/16 04:55: Sodium Level 144, Potassium Level 4.4, Chloride Level 103, Carbon Dioxide Level 22, Anion Gap 19H, Blood Urea Nitrogen 16, Creatinine 1.0, Estimat Glomerular Filtration Rate > 60, Glucose Level 131H, Calcium Level 9.4, Total Creatine Kinase 242H, Triglycerides Level 211H, Cholesterol Level 152, LDL Cholesterol 77 , HDL Cholesterol 33, Cholesterol/HDL Ratio 4.6H Height (Feet): 5 Height (Inches): 11.00 Weight (Pounds): 165 General Appearance: no apparent distress EENT: TMs normal Neck: supple Cardiovascular: normal rate Respiratory/Chest: normal breath sounds Abdomen: non tender Extremities: non-tender Edema: 1+ Leg (L), 1+ Leg (R) Edema: mild edema Neurologic: no motor/sensory deficits Skin: warm/dry Dario Henderson Jun 21, 2016 09:56
[2016-06-21 12:00] VITALS: BP 128/91
[2016-06-21] MEDS ORDERED: Tubing IV Secondary IV ONE (13:44)
[2016-06-21] MEDS ORDERED: NS 275ml ONE ×2 (13:44)
[2016-06-21] MEDS ORDERED: 1/2 NS 1000ml IV ONE (13:44)
[2016-06-21] MEDS ORDERED: Sterile Water Irrig 1000ml IRRIG ONE (13:44)
--- NOTE | 2016-06-21 23:40 | General Progress Note ---
Assessment/Plan Assessment/Plan Assessment (1) Hypovolemic shock - improved (2) Metabolic acidosis - improved (3) Hypernatremia - improved (4) Acute renal failure - improved (5) Encephalopathy (6) Ischemia of digits of hand (7) Rhabdomyolysis (8) Poor po, suspect will need PEG eventually Recommendations - push po - follow intake - d/c planning - return to hospital if fails PO Subjective Allergies: Coded Allergies: No Known Allergies (Unverified , 05/30/16) Subjective awake minimally verbal or interactive d/c planning noted for today Objective Last 24 Hour Vital Signs Date Time Temp Pulse Resp B/P Pulse Ox O2 Delivery O2 Flow Rate FiO2 06/21/16 12:00 96.8 110 22 128/91 97 Room Air 06/21/16 09:26 136/97 06/21/16 09:26 115 136/97 06/21/16 08:00 96.6 115 20 136/97 98 Nasal Cannula 2.0 06/21/16 04:00 98.1 82 20 146/82 96 Nasal Cannula 2.0 06/21/16 00:00 98.1 88 20 150/79 95 Nasal Cannula 2.0 Intake and Output 06/20/16 06/21/16 19:00 07:00 Intake Total 990 ml 350 ml Output Total 450 ml 2820 ml Balance 540 ml -2470 ml Intake Oral 240 ml 240 ml Free Water 600 ml IV Total 110 ml Tube Feeding 150 ml Output Urine Total 450 ml 2820 ml # Bowel Movements 1 Laboratory Tests 06/21/16 04:55: Sodium Level 144, Potassium Level 4.4, Chloride Level 103, Carbon Dioxide Level 22, Anion Gap 19H, Blood Urea Nitrogen 16, Creatinine 1.0, Estimat Glomerular Filtration Rate > 60, Glucose Level 131H, Calcium Level 9.4, Total Creatine Kinase 242H, Triglycerides Level 211H, Cholesterol Level 152, LDL Cholesterol 77 , HDL Cholesterol 33, Cholesterol/HDL Ratio 4.6H Height (Feet): 5 Height (Inches): 11.00 Weight (Pounds): 165 Objective Debilitated AA man NCAT supple CTA RRR Soft ND NT (+) ischemic changes in digits DL CABRERA Jun 21, 2016 23:40
--- NOTE | 2016-06-22 01:37 | Discharge Summary ---
DATE OF ADMISSION: 06/07/2016 DATE OF DISCHARGE: 06/21/2016 ADMISSION DIAGNOSES: 1. Sepsis. 2. Diabetic ketoacidosis. 3. Shock. 4. Acute renal failure. 5. History of encephalopathy. 6. Rhabdomyolysis. 7. Gangrene. DISCHARGE DIAGNOSES: 1. Sepsis. 2. Diabetic ketoacidosis. 3. Shock. 4. Acute renal failure. 5. History of encephalopathy. 6. Rhabdomyolysis. 7. Gangrene. HISTORY AND HOSPITAL COURSE: The patient is an unfortunate male, who presented with complaints of diabetic ketoacidosis and septic shock. He was on pressors, broad-spectrum IV antibiotics, and IV fluids. He had acute renal failure. He was on pressors, aggressive hydration, and antibiotics. He developed gangrene at the tips of the fingers as well as the toe/foot. Vascular consultation was obtained. There is no vascular issue. The gangrene was felt to be likely secondary to patient's sepsis. The patient was found to have a DVT. Because of bleeding problems, he had an IVC filter placed and eventually stabilized. Renal function improved. He had an NG tube placed because of dysphagia, but he passed a swallow evaluation on the day prior to discharge. He was treated with broad-spectrum IV antibiotics. These were later discontinued by the ID [employer] security consultant. On discharge, the patient was well. The plan is for him to [facility] to a [facility] facility. He will likely need amputations of some of his toes/feet and fingers once the gangrene is better demarcated, but the gangrene was dry and there is no signs of any infection. DISCHARGE MEDICATIONS: Please see discharge medication list for discharge medications. DIET: Cardiac diet. ACTIVITY: Ad-felipe. FOLLOWUP: The patient will be followed up by his PMD in one to two days at the [facility] facility. Raul Del Cid M.D. DR: PAULINA JOB#: [id number] CC: Aidan Fredy Fisher
--- NOTE | 2016-06-22 17:56 | Diagnostic Imaging Report ---
Indications: DYSPHAGIA Technique: Patient ingested multiple substances under the supervision of speech pathology. Video fluoroscopic recording performed. Total fluoroscopy time 62 seconds. Total dose area product 0.0973 mGycm2 Comparison: none Findings: No swallowing was recorded, as patient spit out the substances Impression: Nondiagnostic graph please refer to speech pathology report for more detailed analysis
--- NOTE | 2016-06-22 21:47 | Progress Note ---
DATE: 06/21/2016 CARDIOLOGY PROGRESS NOTE SUBJECTIVE: The patient is tolerating oral intake. He passed a swallow evaluation. The digits of his right hand and feet are stable with better demarcation and dry gangrene. OBJECTIVE: VITAL SIGNS: Blood pressure 150/79, pulse 88, respiratory rate 20, and afebrile. NECK: Supple. LUNGS: Clear. CARDIAC: Regular. Normal S1 and S2. ABDOMEN: Soft. EXTREMITIES: Trace edema. Dry gangrene as described above. LABORATORY AND DIAGNOSTIC DATA: LDL cholesterol was 77. IMPRESSION: 1. Peripheral artery disease. 2. Gangrene of the digits. 3. Deep vein thrombosis status post inferior vena cava filter. 4. Type 2 diabetes mellitus. 5. Acute and chronic diastolic congestive heart failure. 6. Status post below knee amputation. PLAN: 1. Maintain adequate hydration. 2. Skin care. No immediate plan for amputation. 3. Optimize blood pressure control and anti-failure regimen. 4. Outpatient followup. Morales Serrano M.D. DR: DOUGLAS JOB#: [id number] CC:
--- NOTE | 2016-07-18 15:42 | Diagnostic Imaging Report ---
Indications: Bilateral lower extremity deep venous thrombosis; comorbidities precludes safe anticoagulation Technique: Procedure, indications, risks, alternatives were explained to the patient's family, who understands and gives written consent to proceed. Strict aseptic technique was utilized, including hand washing, use of hat and mask, use of sterile gown and gloves, sterile ultrasound gel and probe cover, prepping of right neck base skin with 2% chlorhexidine solution, and application of full body sterile barrier over this area. Skin and subcutaneous soft tissues were infiltrated with 1% lidocaine and sodium bicarbonate. A small dermatotomy was made, through which the right internal jugular vein was punctured percutaneously under direct sonographic guidance with a 19-gauge Seldinger needle. Exchange was made over a guidewire for a 5 [place] hook flush catheter. This was advanced through the superior vena cava and inferior vena cava into the left common iliac vein. Nonionic iodine contrast was injected and digital subtraction images of the inferior vena cava obtained. The percutaneous tract was dilated over a guidewire, then a 10 [place] introducer sheath advanced over the guidewire under direct fluoroscopic guidance into the infrarenal segment of the inferior vena cava. A [place] retrievable filter was deployed into and advanced through the sheath to its distal end, sheath withdrawn and filter deployed in the immediate infrarenal inferior vena cava. The sheath was carefully advanced adjacent to the filter, contrast injected and followup images obtained. The sheath was removed and right neck puncture site manually compressed to achieve hemostasis. The patient tolerated the procedures well without immediate complications and was returned to his room in stable condition. Total fluoroscopy time: 1.3 minutes. Dose-area product: 845 dGy-cm2 Findings: Comparison: None The bilateral common iliac veins and inferior vena cava are patent and normal in caliber without intraluminal filling defect. The right renal vein joins the inferior vena cava at the L1-2 level. The left renal vein joins the inferior vena cava at the L1-L2 level. Final images demonstrate successful deployment of filter in the inferior vena cava immediately below renal veins, well centered. Contrast flows freely through the filter. IMPRESSION: Inferior venacavogram within normal limits. Placement of filter in the infrarenal inferior vena cava. It is recommended that this filter be retrieved percutaneously as soon as possible once contraindication to theraputic anticoagulation has resolved.
== END 2016-06-21 13:45 | DRG 853 ==
LOC: EDBD 17:45 → EMR 18:30 → ICU 18:35 → EDBEDREQSVC 19:46 → EDBEDREQTM 19:46 → EDBEDREQ 20:34 → 2E 06-13 14:43 → 4E 06-15 14:41
PROC: B548ZZA Ultrasonography of Superior Vena Cava, Guidance (ICD-10-PCS; principal; 2016-06-09)
PROC: 02HV33Z Insertion of Infusion Device into Superior Vena Cava, Percutaneous Approach (ICD-10-PCS; principal; 2016-06-09)
PROC: 06H03DZ Insertion of Intraluminal Device into Inferior Vena Cava, Percutaneous Approach (ICD-10-PCS; 2016-06-10)
DX: A41.02 Sepsis due to Methicillin resistant Staphylococcus aureus (principal); R57.1 Hypovolemic shock; N17.0 Acute kidney failure with tubular necrosis; G93.40 Encephalopathy, unspecified; I50.33 Acute on chronic diastolic (congestive) heart failure; E13.10 Other specified diabetes mellitus with ketoacidosis without coma; E87.0 Hyperosmolality and hypernatremia; I96 Gangrene, not elsewhere classified; I13.0 Hypertensive heart and chronic kidney disease with heart failure and stage 1 through stage 4 chronic kidney disease, or unspecified chronic kidney disease; I82.403 Acute embolism and thrombosis of unspecified deep veins of lower extremity, bilateral; N39.0 Urinary tract infection, site not specified; I82.621 Acute embolism and thrombosis of deep veins of right upper extremity; E86.0 Dehydration; I99.8 Other disorder of circulatory system; R65.20 Severe sepsis without septic shock; E11.22 Type 2 diabetes mellitus with diabetic chronic kidney disease; E11.65 Type 2 diabetes mellitus with hyperglycemia; N18.9 Chronic kidney disease, unspecified; R09.02 Hypoxemia; I16.0 Hypertensive urgency; G40.909 Epilepsy, unspecified, not intractable, without status epilepticus; D69.6 Thrombocytopenia, unspecified; I25.10 Atherosclerotic heart disease of native coronary artery without angina pectoris; D63.8 Anemia in other chronic diseases classified elsewhere
CPT/HCPCS: 36415; 36569; 36600; 37191; 71010; 74000; 74230; 76700; 76775; 76937; 80048; 80053; 80061; 81003; 82009; 82010; 82140; 82270; 82378; 82550; 82607; 82728; 82746; 82803; 82962; 83010; 83036; 83540; 83550; 83605; 83615; 83735; 83880; 84100; 84153; 84484; 85007; 85025; 85044; 85060; 85379; 85384; 85610; 85651; 85730; 86140; 86703; 86705; 86709; 86803; 86850; 86900; 86901; 86920; 87040; 87070; 87081; 87086; 87181; 87205; 87340; 93005; 93306; 93925; 93930; 93970; 94664; 94760; J0712; J1815; S5561

== ENCOUNTER 2016-06-22 01:44 | Inpatient (IN) | payer MEDICARE, MEDICAID ==
[~2016-06-22] VITALS: Ht 172.7 cm; Wt 68.0 kg
[~2016-06-22 01:44] MED LIST: COLACE100 MG ORAL; KEPPRA500 M4 ORAL; LANTUS SOL100 UNIT/1 SUBQ; LEVEMIR FL100 UNIT/1 SUBQ; LISINOPRIL20 MG ORAL; METOPROLOL TAR100 M1 ORAL; METOPROLOL TART50 MG NG; NOVOLOG100 UNITS1 SUBQ; PROCRIT20000 UNI2 SUBQ; SENNA8.6 M2 PO; TYLENOL650 MG/20. ORAL
[2016-06-22 01:56] VITALS: BP 87/56
[2016-06-22 02:19] LABS: APPEARANCE,URINE CLEAR; KETONES,URINE NEGATIVE (NEGATIVE); LEUKOCYTE ESTERASE ,URINE 1+ (NEGATIVE); NITRITE,URINE NEGATIVE (NEGATIVE); PH,URINE 5 (4.5-8.0); PROTEIN,URINE 2+ (NEGATIVE); UROBILINOGEN,URINE 1 MG/DL (0.0-1.0)
--- NOTE | 2016-06-22 02:21 | Emergency Room Report ---
History of Present Illness General Chief Complaint: Fever Source: Medical Record, EMS Present Illness HPI This is a 56-year-old unfortunate male who presents with chief complaint of fever and tachycardia. Onset tonight. He was recently discharged here with sepsis, DKA, septic shock. He was given Tylenol for the fever. Unable to get history from patient because of his condition. Unable to get much from the group home because they did not send charts with him. History is through the last admission. Allergies: Coded Allergies: No Known Allergies (Unverified , 05/30/16) Patient History Past Medical History: see triage record, old chart reviewed Past Surgical History: other Pertinent Family History: none Social History: Denies: smoking Immunizations: other Reviewed Nursing Documentation: PMH: Agreed, PSxH: Agreed Nursing Documentation-PMH Hx Cardiac Problems: Yes - Skull fracture, muscle weakness Hx Hypertension: Yes Hx Diabetes: Yes Hx Cancer: No Hx Gastrointestinal Problems: No Hx Seizures: Yes Review of Systems Constitutional: Reports: fever, weakness All Other Systems: limited - Secondary to his condition Physical Exam Vital Signs Date Time Temp Pulse Resp B/P Pulse Ox O2 Delivery O2 Flow Rate FiO2 06/22/16 01:39 100.2 136 18 104/74 97 Nasal Cannula 2.0 lives with fever and tachycardia Sp02 EP Interpretation: abnormal General Appearance: moderate distress, cachetic, Chronically Ill Head: normocephalic, atraumatic Eyes: bilateral eye EOMI, bilateral eye PERRL ENT: dry mucus membranes Neck: full range of motion, supple, no meningismus Respiratory: chest non-tender, lungs clear, normal breath sounds Cardiovascular #1: regular rate, rhythm, no murmur Gastrointestinal: normal bowel sounds, non tender, no mass, no organomegaly, no bruit, non-distended Musculoskeletal: back normal, normal range of motion, swelling, other - Patient has gangrene to the tips of his fingers and toes. Psychiatric: mood/affect normal Skin: warm/dry Procedures Critical Care Time Critical Care Time Critical care is mandated in this patient who presented with sepsis. Patient require my urgent intervention to attenuate the risks of about collapse which may lead to cardiovascular collapse and . Critical care time is 35 minutes excluding any reportable procedure. Critical care time included evaluation, multiple reevaluation, looking at old charts, interpreting laboratory and diagnostic data, discussing case with patient and family and consultants, and charting. Medical Decision Making Diagnostic Impression: Primary Impression: Encephalopathy Additional Impressions: Sepsis Qualified Codes: A41.9 - Sepsis, unspecified organism UTI (urinary tract infection) Qualified Codes: N30.00 - Acute cystitis without hematuria Anemia, chronic disease Chronic kidney disease Qualified Codes: N18.9 - Chronic kidney disease, unspecified Proteinuria ER Course Patient presents with acute encephalopathy secondary to fever and infection. Most likely UTI. No evidence of pneumonia. No evidence of DKA. Could also be a viral infection going on. He grew out staph in his blood. I put him on Zosyn and vancomycin. Will admit. Lab Results Impression labs unremarkable EKG Diagnostic Results EKG Time: 02:20 Rate: normal, tachycardiac Rhythm: NSR ST Segments: no acute changes Rhythm Strip Diag. Results EP Interpretation: yes Rate: 110 Rhythm: NSR, no PVC's, no ectopy Chest X-Ray Diagnostic Results EP Interpretation: Yes Findings: no consolidation, no effusion, no pneumothorax, no acute cardiopulmonary disease Number of Views: 1 Last Vital Signs Date Time Temp Pulse Resp B/P Pulse Ox O2 Delivery O2 Flow Rate FiO2 06/22/16 01:56 100.0 125 19 87/56 95 Room Air 06/22/16 01:39 2.0 Status: improved Disposition: ADMITTED INPATIENT Condition: Serious QI GRAVES M.D. Jun 22, 2016 02:21
[2016-06-22 02:34] LABS: BASOPHILS % (AUTO) 0.6 % (0.0-2.0); EOSINOPHILS % (AUTO) 1.4 % (0.0-3.0); LYMPHOCYTES % (AUTO) 13.1 % (20.0-45.0); MEAN CORPUSCULAR HGB CONC 30.2 G/DL (32.0-36.0); MEAN CORPUSCULAR VOLUME 80 FL (80-99); MEAN PLATELET VOLUME 7.1 FL (6.5-10.1); NEUTROPHILS % (AUTO) 78.9 % (45.0-75.0); PLATELET COUNT 343 K/UL (150-450); RED BLOOD COUNT 3.66 M/UL (4.70-6.10); RED CELL DISTRIBUTION WIDTH 18.2 % (11.6-14.8); WHITE BLOOD COUNT 9.5 K/UL (4.8-10.8)
[2016-06-22 02:43] LABS: INR 1.1 (0.9-1.1); PROTHROMBIN TIME 11.4 SEC (9.30-11.50)
[2016-06-22 02:48] LABS: BACTERIA,URINE FEW /HPF; CALCIUM OXALATE CRYSTALS,UR FEW /LPF; SQUAMOUS EPITHELIAL CELL,UR FEW /LPF (NONE/OCC)
[2016-06-22 02:49] LABS: MUCUS,URINE FEW /LPF (NONE/OCC); YEAST,URINE MANY /HPF
[2016-06-22 02:51] LABS: ICTOTEST NEGATIVE
[2016-06-22 02:51] LABS: ALBUMIN/GLOBULIN RATIO 0.5 (1.0-2.7); CALCIUM 9.3 mg/dL (8.6-10.2); CREATININE 1.6 mg/dL (0.7-1.2); GLOMERULAR FILTRATION RATE 44.6 mL/min (>60); TOTAL PROTEIN 7.7 g/dL (6.6-8.7)
[2016-06-22 03:05] LABS: TROPONIN I < 0.30 ng/mL (<=0.30)
[2016-06-22] MEDS ORDERED: Vancomycin 1 GM in NS 275 ML IVPB ONE (03:30)
[2016-06-22] MEDS ORDERED: Piperacillin/Tazobactam 3.375 GM in NS 110 ML IVPB ONE (03:30)
[2016-06-22] MEDS ORDERED: Zosyn 3.375gm inj ONE (03:35)
[2016-06-22 03:51] VITALS: BP 135/87
[2016-06-22] MEDS ORDERED: Vancomycin 1gm inj IVPB ONE (04:35)
[2016-06-22 06:46] VITALS: BP 140/86
[2016-06-22 06:58] LABS: CKMB 2.2 ng/mL (< 6.7)
[2016-06-22] MEDS ORDERED: Acetaminophen 650mg/20.3ml ORAL PRN ×2 (08:30→20:30)
[2016-06-22] MEDS ORDERED: Metoprolol 50mg tab ORAL SCH (09:00)
[2016-06-22] MEDS ORDERED: Metoprolol 50mg tab NG SCH (09:00)
[2016-06-22] MEDS ORDERED: Lisinopril 20mg tab ORAL SCH (09:00)
[2016-06-22 09:16] VITALS: BP 143/85
[2016-06-22] MEDS: Docusate 100mg cap ORAL SCH ×2 (09:18→17:45)
[2016-06-22] MEDS ORDERED: Levemir Flexpen SUBQ SCH (10:00)
[2016-06-22] MEDS ORDERED: NovoLOG Insulin Flexpen SUBQ SCH (11:30)
[2016-06-22] MEDS: NovoLOG Insulin Flexpen SUBQ SCH ×3 (12:15→21:45)
--- NOTE | 2016-06-22 15:07 | Diagnostic Imaging Report ---
Indication: Chest pain Technique: One view of the chest Comparison: 06/19/2016 Findings: The lungs and pleural spaces are clear. Prior CABG. There is better inspiration on the current exam. Previously demonstrated nasogastric tube is no longer evident Impression: No acute process
[2016-06-22] MEDS ORDERED: Piperacillin/Tazobactam 3.375 GM in D5W 110 ML IVPB SCH (15:30)
[2016-06-22 16:10] VITALS: BP 110/74
--- NOTE | 2016-06-22 17:35 | Diagnostic Imaging Report ---
Indication: For infection Technique: 3 views left foot Comparison: none Findings: There is marked degenerative changes of the first metatarsal phalangeal joint, with extensive irregularity of the articular surfaces, subchondral sclerosis, degenerative remodeling, and near complete obliteration of the joint space. There is also some bunion formation medially. No definite osteolytic lesions. No worrisome periosteal reaction or osseous erosions. The joint spaces are preserved otherwise. There is a small amount of dorsal soft tissue gas in the forefoot, appreciable only on the lateral view. Impression: Dorsal soft tissue gas, could indicates a soft tissue ulcer but raises concern for possibility of infection with a gas-forming organism No definite plain radiographic findings to suggest acute osteomyelitis. Note, however, that sensitivity of plain radiography for such is limited, and MRI should be considered if there is high clinical suspicion Degenerative changes of the first metatarsophalangeal joint Findings discussed by phone with Dr. Del Cid at the time of interpretation
--- NOTE | 2016-06-22 18:18 | Consultation ---
Consult Note Consult Note Patient is unable to communicate effectively. He has a history of traumatic encephalopathy, chronic kidney disease, and diabetes. He was recently admitted to the hospital due to DKA and sepsis on 06/07/16. He was also noted to have bilateral forefoot gangrene, left worse than right. Bilateral cyanotic areas developed blisters. The right foot blisters have remained in tact. However, the left foot blister auto lanced and resulted in an open wound at the dorsal base of the 3rd interdigital space. Assessment/Plan - Bilateral forefoot gangrene, left worse than right. The gangrene is no longer spreading. Left forefoot with open wound. Small amount of soft tissue gas seen on radiograph. Patient will benefit from bilateral foot transmetatarsal amputation. Lang Klein DPM Jun 22, 2016 18:18
--- NOTE | 2016-06-22 19:07 | History and Physical Report ---
DATE OF ADMISSION: 06/22/2016 CHIEF COMPLAINT: Sepsis and fever. HISTORY OF PRESENT ILLNESS: The patient is a pleasant, but unfortunate 56-year-old male. He has a history of encephalopathy, diabetes, hypertension, and gangrene who was recently admitted for prolonged hospitalization with diabetic ketoacidosis. He developed gangrene of the toes and the fingers, but he was stable. He was discharged to [facility] facility, but apparently developed high fevers and was transferred back to the emergency room. On evaluation there, the patient remained febrile, but his initial workup was unremarkable. His white count was normal. UA was clear. Chest x-ray results are currently pending. He did have some mild acute renal failure and dehydration. He has now been placed on observation for further evaluation and care. The patient is currently without complaints. Denies any chest pain or shortness of breath. PAST MEDICAL HISTORY: As above. PAST SURGICAL HISTORY: IVC filter. CURRENT MEDICATIONS: Reconciled and reviewed. ALLERGIES: None. FAMILY HISTORY: None. SOCIAL HISTORY: Negative for tobacco, ethanol, or drugs. REVIEW OF SYSTEMS: Difficult to obtain as the patient is confused. PHYSICAL EXAMINATION: VITAL SIGNS: Temperature at the snf was 100.7, current temperature is 98.9, and temperature in the emergency room was 100.2. Pulse of 96, respirations 18, and he is saturating 98% on 2 liters. GENERAL: The patient is a well-developed male, in no apparent distress. HEART: Regular rate and rhythm. LUNGS: Clear. ABDOMEN: Soft, nontender, and nondistended. EXTREMITIES: Without clubbing or cyanosis. The patient has dry gangrene of the tips of the fingers on the right hand and the toes on the right, and the forefoot on the left. LABORATORY DATA: White count was 9.5, hemoglobin 8.8, hematocrit 29, and platelets are 343,000. Sodium 148, potassium 4, chloride 108, bicarbonate 24, BUN 26, and creatinine is 1.6. INR is 1.1. UA showed 2 to 4 WBCs. Chest x-ray results are currently pending. ASSESSMENT: This is an unfortunate male with history of diabetes, gangrene, hypertension, encephalopathy, and seizure disorder who is admitted with complaints of fevers and possible sepsis. PROBLEMS: 1. Fevers, unclear etiology. 2. Possible sepsis. 3. Gangrene. 4. Seizure disorder. 5. Encephalopathy. 6. Hypertension. 7. Diabetes. PLAN: 1. IV hydration. 2. ID consultation. 3. Follow up cultures. 4. Follow up pending chest x-ray. 5. Continue seizure medications. 6. Continue insulin regimen. 7. Continue p.o. 8. Monitor for aspiration. Raul Del Cid M.D. DR: TARSHA JOB#: [id number] CC:
[2016-06-22 20:00] VITALS: BP 137/88
[2016-06-22] MEDS: Metoprolol 50mg tab ORAL SCH ×2 (21:00→21:29)
--- NOTE | 2016-06-22 21:43 | Nephrology Progress Note ---
Assessment/Plan Problem List: (1) Acute renal failure (2) Rhabdomyolysis (3) Sepsis (4) Encephalopathy (5) Hypernatremia Assessment hypotonic iv ordered, continue rx sepsis Subjective ROS Limited/Unobtainable: Yes Objective Objective Last 24 Hour Vital Signs Date Time Temp Pulse Resp B/P Pulse Ox O2 Delivery O2 Flow Rate FiO2 06/22/16 16:10 97.8 79 18 110/74 96 Room Air 06/22/16 12:30 79 06/22/16 09:19 98 143/85 06/22/16 09:19 143/85 06/22/16 09:16 97.5 98 18 143/85 97 Room Air 06/22/16 07:37 98.9 96 18 140/86 98 Room Air 2.0 06/22/16 06:46 98.9 96 18 140/86 98 Room Air 2.0 06/22/16 03:51 100.0 110 19 135/87 95 Room Air 2.0 06/22/16 01:56 100.0 125 19 87/56 95 Room Air 06/22/16 01:39 100.2 136 18 104/74 97 Nasal Cannula 2.0 Intake and Output 06/21/16 06/22/16 19:00 07:00 Intake Total 2385 ml Output Total 400 ml Balance 1985 ml IV Total 2385 ml Output Urine Total 400 ml Laboratory Tests 06/22/16 01:53: Urine Color Yellow, Urine Appearance Clear, Urine pH 5, Urine Specific [place] 1.025, Urine Protein 2+H, Urine Glucose (UA) 1+H, Urine Ketones Negative, Urine Occult Blood 1+H, Urine Nitrite Negative, Urine Bilirubin 1+H, Urine Ictotest Negative, Urine Urobilinogen 1H, Urine Leukocyte Esterase 1+H, Urine RBC 2-4H, Urine WBC 2-4, Urine Squamous Epithelial Cells Few, Urine Calcium Oxalate Crystals Few, Urine Bacteria Few, Urine Mucus FewH, Urine Yeast ManyH 06/22/16 02:00: White Blood Count 9.5, Red Blood Count 3.66L, Hemoglobin 8.8L, Hematocrit 29.1L , Mean Corpuscular Volume 80, Mean Corpuscular Hemoglobin 24.0L, Mean Corpuscular Hemoglobin Concent 30.2L, Red Cell Distribution Width 18.2H, Platelet Count 343, Mean Platelet Volume 7.1, Neutrophils (%) (Auto) 78.9H, Lymphocytes (%) (Auto) 13.1L, Monocytes (%) (Auto) 6.0, Eosinophils (%) (Auto) 1.4, Basophils (%) (Auto) 0.6, Prothrombin Time 11.4, Prothromb Time International Ratio 1.1, Activated Partial Thromboplast Time 29, Sodium Level 148H, Potassium Level 4.0, Chloride Level 108H, Carbon Dioxide Level 24, Anion Gap 16H, Blood Urea Nitrogen 26H, Creatinine 1.6#H, Estimat Glomerular Filtration Rate 44.6, Glucose Level 169H, Lactic Acid Level 1.40, Calcium Level 9.3, Total Bilirubin 0.5, Aspartate Amino Transf (AST/SGOT) 38, Alanine Aminotransferase (ALT/SGPT) 42H, Alkaline Phosphatase 185H, Total Creatine Kinase 206H, Creatine Kinase MB 2.2, Creatine Kinase MB Relative Index 1.0, Troponin I < 0.30, Total Protein 7.7, Albumin 2.7L, Globulin 5.0, Albumin/ Globulin Ratio 0.5L Height (Feet): 5 Height (Inches): 8.00 Weight (Pounds): 150 General Appearance: no apparent distress, confused EENT: normal ENT inspection Neck: normal alignment Cardiovascular: normal rate, regular rhythm Respiratory/Chest: lungs clear Abdomen: non tender, soft Extremities: moderate edema, other - gangrene SHASTA REDDY Jun 22, 2016 21:43
[2016-06-22] MEDS: Levemir Flexpen SUBQ SCH (21:46)
[2016-06-23] VITALS: BP 120/77
--- NOTE | 2016-06-23 00:27 | Consultation ---
DATE OF CONSULTATION: 06/22/2016 CARDIOLOGY CONSULTATION CONSULTING PHYSICIAN: Morales Serrano M.D. REFERRING PHYSICIAN: Raul Del Cid M.D. REASON FOR CONSULTATION: Shock. HISTORY OF PRESENT ILLNESS: This is a 56-year-old male who was recently hospitalized for complications of diabetic ketoacidosis including gangrene of his fingers and toes. He was stabilized following a prolonged hospital course that included shock-related hypovolemia and sepsis. He was discharged to the nursing facility with immediate plans for amputation of his dry gangrene. Today, he returned to the emergency room with fevers and subsequent hypotension. I have been asked to assist with further cardiovascular care. PAST MEDICAL HISTORY: 1. Insulin-requiring diabetes mellitus. 2. Peripheral artery disease. 3. Gangrenous distal digits of the hands and feet. 4. Hypertension. 5. Chronic kidney disease. History of DVT and IVC filter. ALLERGIES: None. FAMILY HISTORY: None known. SOCIAL HISTORY: Denies smoking, alcohol, or substance abuse. MEDICATIONS: Reviewed and reconciled. REVIEW OF SYSTEMS: As outlined above, otherwise, no additional data obtainable from the patient. PHYSICAL EXAMINATION: VITAL SIGNS: Temperature 100.2, blood pressure 87/56, heart rate 125, respiratory rate 19, and oxygen saturation on room air 95%. HEENT: Normocephalic and atraumatic. Conjunctivae are pink. Oropharynx clear. Mucous membranes dry. NECK: Supple. LUNGS: Clear. CARDIAC: Regular rhythm and rate. Normal S1 and S2 with a fourth heart sound. ABDOMEN: Soft and nontender. No guarding or rebound. EXTREMITIES: No clubbing or cyanosis. There is dry gangrene of the fingers and toes, specifically the right hand and foot, and left forefoot. DIAGNOSTIC AND LABORATORY DATA: White count 9.5, hemoglobin 8.8. Sodium 148, potassium 4, bicarbonate 24, BUN 26, and creatinine 1.6. Chest x-ray with no acute process. EKG - sinus tachycardia with no acute abnormality. IMPRESSION: 1. Shock. 2. Hypovolemia. 3. Dehydration. 4. Possible sepsis. 5. Acute renal failure. 6. Gangrene of the upper and lower extremities. 7. History of hypertension. 8. Insulin-requiring diabetes mellitus. 9. Status post recent episode of diabetic ketoacidosis. 10. Seizure disorder. 11. Chronic encephalopathy. PLAN: 1. Cardiac monitoring. 2. Volume resuscitation 3. Insulin titration. 4. Panculture. 5. Empiric antibiotics. 6. DVT and stress ulcer prophylaxis. 7. Pressors only if inadequate response to fluid challenge. 8. Hold antihypertensive once blood pressure stabilized. 9. Hypotonic IV fluids should be initiated. Morales Serrano M.D. DR: ANAY JOB#: [id number] CC:
--- NOTE | 2016-06-23 01:17 | Consultation ---
DATE OF CONSULTATION: 06/22/2016 INFECTIOUS DISEASES CONSULTATION This consult is for coverage of Dr. Bowles. PRIMARY ATTENDING PHYSICIAN: Raul Del Cid M.D. REASON FOR CONSULTATION: Sepsis, infected foot lesion. HISTORY OF PRESENT ILLNESS: This patient is a 56-year-old male admitted yesterday after discharge from [facility] to a nursing facility because of fever and tachycardia. The patient has low-grade fever and heart rate of 136. Temperature at the hospital was 100.2. As mentioned, he was discharged from hospital yesterday. On previous admission, the patient had diabetic ketoacidosis, VRE and MRSA colonization, DVT of both legs with IVC filter placement, cyanotic toes and fingers that in the left foot developed blister and the blister opened spontaneously. MEDICATIONS: Epogen, insulin, linezolid, Levemir insulin, Colace, Keppra, lisinopril, Senokot, metoprolol, Tylenol. ALLERGIES: No known drug allergies. SOCIAL HISTORY: intermediate resident. REVIEW OF SYSTEMS: Unobtainable as the patient seems to be confused. PHYSICAL EXAMINATION: GENERAL APPEARANCE: No acute distress. VITAL SIGNS: Temperature 97.5 degrees, pulse 98, and blood pressure 143/85. HEAD AND NECK: [place] conjunctivae. HEART: Regular. LUNGS: Clear. ABDOMEN: Soft and nontender. EXTREMITIES: Edema of both legs. The patient has a peripheral line. Cyanotic fingers, cyanotic toes. SKIN: Ulceration in the left foot that seems to be an abscess or blister that opened spontaneously. LABORATORY AND DIAGNOSTIC DATA: WBC 9.5, hemoglobin 8.8, hematocrit 29.1, platelets 343,000. Sodium 148, potassium 4, chloride 108, bicarbonate 24, BUN 26, creatinine 1.6, glucose 169. AST 38, ALT 42, alkaline phosphatase 185. Albumin 2.7. IMPRESSION: 1. Sepsis with tachycardia. 2. Low-grade fever. 3. Altered mental status. 4. Seems to have infected diabetic foot lesion. 5. The patient has gangrene of toes and fingers with recent history of MRSA and sepsis. 6. VRE and MRSA colonization. 7. Deep venous thrombosis of legs. 8. Anemia. 9. Seizure disorder. 10. History of skull fracture. RECOMMENDATION: We will continue with linezolid. We will add Zosyn. We will obtain wound culture. We will obtain an x-ray of the left foot for diagnosis of osteomyelitis. At the end of my exam, I thank Dr. Del Cid for involving me in the care of this patient. Maxime Corbin M.D. DR: Genaro JOB#: [id number] CC:
[2016-06-23] MEDS: Piperacillin/Tazobactam 3.375 GM in D5W 110 ML IVPB SCH ×2 (03:31→16:28)
[2016-06-23 04:00] VITALS: BP 130/78
[2016-06-23] MEDS: NovoLOG Insulin Flexpen SUBQ SCH ×4 (06:18→20:37)
[2016-06-23 08:06] VITALS: BP 131/82
[2016-06-23] MEDS: Docusate 100mg cap ORAL SCH ×2 (08:14→18:24)
[2016-06-23] MEDS: Lisinopril 20mg tab ORAL SCH (08:14)
--- NOTE | 2016-06-23 08:31 | General Progress Note ---
Assessment/Plan Problem List: (1) Metabolic acidosis ICD Codes: E87.2 - Acidosis SNOMED: 29557330 (2) Ischemia of foot ICD Codes: I99.8 - Other disorder of circulatory system SNOMED: 990160833, 615859661 (3) Chronic kidney disease ICD Codes: N18.9 - Chronic kidney disease, unspecified SNOMED: 507709925 Qualifiers: Qualified Codes: N18.9 - Chronic kidney disease, unspecified (4) Anemia, chronic disease ICD Codes: D63.8 - Anemia in other chronic diseases classified elsewhere SNOMED: 137782531 (5) Encephalopathy ICD Codes: G93.40 - Encephalopathy, unspecified SNOMED: 71587512, 509242392 (6) Rhabdomyolysis ICD Codes: M62.82 - Rhabdomyolysis SNOMED: 439054169 (7) Sepsis ICD Codes: A41.9 - Sepsis, unspecified organism SNOMED: 92811261 Qualifiers: Qualified Codes: A41.9 - Sepsis, unspecified organism Status: stable, progressing Assessment/Plan iv abx follow up cultures proceed with treansmetatarsal foot amputation Subjective ROS Limited/Unobtainable: No Constitutional: Reports: malaise, weakness HEENT: Reports: no symptoms Cardiovascular: Reports: no symptoms Respiratory: Reports: no symptoms Gastrointestinal/Abdominal: Reports: no symptoms Genitourinary: Reports: no symptoms Neurologic/Psychiatric: Reports: pre-existing deficit Endocrine: Reports: no symptoms Hematologic/Lymphatic: Reports: anemia Allergies: Coded Allergies: No Known Allergies (Unverified , 05/30/16) All Systems: reviewed and negative except above Subjective same. awake. confused at baseline. no osteo on left foot xray but +gas in soft tissues Objective Last 24 Hour Vital Signs Date Time Temp Pulse Resp B/P Pulse Ox O2 Delivery O2 Flow Rate FiO2 06/23/16 08:14 131/82 06/23/16 08:06 97.6 89 19 131/82 97 Room Air 89 06/23/16 04:00 97.9 97 22 130/78 94 Room Air 06/23/16 00:00 98.4 97 20 120/77 98 Room Air 06/22/16 20:00 97.9 95 17 137/88 93 Room Air 06/22/16 16:10 97.8 79 18 110/74 96 Room Air 06/22/16 12:30 79 06/22/16 09:19 98 143/85 06/22/16 09:19 143/85 06/22/16 09:16 97.5 98 18 143/85 97 Room Air Intake and Output 06/22/16 06/23/16 19:00 07:00 Intake Total 945.00 ml 750 ml Output Total 720 ml 700 ml Balance 225.00 ml 50 ml Intake Oral 120 ml IV Total 825.00 ml 750 ml Output Urine Total 720 ml 700 ml # Bowel Movements 1 Height (Feet): 5 Height (Inches): 8.00 Weight (Pounds): 150 General Appearance: WD/WN, alert, confused Neck: supple Cardiovascular: regular rhythm Respiratory/Chest: lungs clear, normal breath sounds, no respiratory distress, no accessory muscle use Abdomen: normal bowel sounds, non tender, soft, no organomegaly, no mass Edema: no edema noted Arm (L), no edema noted Arm (R), no edema noted Leg (L), no edema noted Leg (R), no edema noted Pedal (L), no edema noted Pedal (R), no edema noted Generalized Objective gangrene toe of right foot gangrene of toes and midfoot left foot gangrene fingers right hand DARYN JEREZ Jun 23, 2016 08:31
[2016-06-23] MEDS: Heparin 5000 units/ml inj SUBQ SCH ×2 (08:38→20:38)
--- NOTE | 2016-06-23 08:47 | Consultation ---
DATE OF CONSULTATION: 06/22/2016 CONSULTING SPECIALTY: Podiatry. CONSULTING PHYSICIAN: Lang Klein D.P.M., covering for Silvino Blas D.P.M. REASON FOR CONSULTATION: Bilateral foot gangrene. HISTORY OF PRESENT ILLNESS: The patient is unable to communicate effectively. Therefore, history was obtained from reviewing the chart. The patient is a 56-year-old male who was admitted from a assisted facility on 06/07/2016 with sepsis and diabetic ketoacidosis. The patient was noted to have bilateral lower extremities cyanotic changes of the forefoot. The patient also had blisters on bilateral feet. The right foot blister has remained intact. However, the left foot auto-lanced at the dorsal foot proximal to the third interdigital space. The patient currently has a wound in that area. No drainage or malodor was noted. The patient was admitted secondary to tachycardia and fever. PAST MEDICAL HISTORY: Posttraumatic encephalopathy, chronic kidney disease, seizure disorder, diabetes, and bilateral DVT. ALLERGIES: None known. MEDICATIONS: The patient was started on vancomycin, Zosyn, and linezolid. PAST SURGICAL HISTORY: Unobtainable. SOCIAL HISTORY: Unobtainable. FAMILY HISTORY: Unobtainable. PHYSICAL EXAMINATION: VITAL SIGNS: Temperature 97.8, pulse 79, respiratory rate 18, blood pressure 110/74, and O2 96% on room air. LABORATORY DATA: White blood count 9.5, hemoglobin 8.8, hematocrit 29.1, and platelets 323,000. Sodium 148, potassium 4, chloride 106, CO2 24, BUN 26, and creatinine 1.6. His glucose is 159. IMAGING DATA: Left x-ray - on the lateral view of the left foot, there is a small area of soft tissue gas noted. PHYSICAL EXAMINATION: GENERAL: The patient is lying in bed and is not alert or oriented. DERMATOLOGICAL: Bilateral foot with cyanotic appearing toes. Left foot is worse than the right and is at the level of the metatarsal head. The right foot cyanotic changes are isolated to toes, 1 through 4. Foot is warm to touch. There is no open wound on the left foot at the dorsal base of the third interspace. No purulence or malodor noted. There is mild serosanguineous drainage present. VASCULAR: Feet are warm. Pulses are palpable. Bilateral foot with mild nonpitting edema. NEUROLOGICAL: The patient reacts to sharp stimulus. MUSCULOSKELETAL: Unable to assess muscle strength. ASSESSMENT: 1. Bilateral forefoot gangrene, left worse than right. The left forefoot with open wound. Small amount of soft tissue gas seen on radiograph. 2. Traumatic encephalopathy. 3. Chronic kidney disease. 4. Diabetes. 5. Bilateral deep venous thrombosis. 6. Hypertension. PLAN: 1. Continue left foot wound care. 2. He will benefit from bilateral foot transmetatarsal amputation. 3. Continue antibiotics per infectious disease specialist recommendations Thank you for the consultation. Lang Klein DPM DR: ARIEL JOB#: [id number] CC: ESME
[2016-06-23] MEDS: Metoprolol 50mg tab ORAL SCH ×2 (09:00→20:29)
[2016-06-23 09:33] LABS: ANION GAP 17 (5-15); CALCIUM 8.5 mg/dL (8.6-10.2); CARBON DIOXIDE 22 mEQ/L (20-30); CHLORIDE 104 mEQ/L (98-107); GLOMERULAR FILTRATION RATE > 60 mL/min (>60); HEMOLYSIS 2; POTASSIUM 3.2 mEQ/L (3.4-4.9); SODIUM 143 mEQ/L (135-145)
[2016-06-23] MEDS: Levemir Flexpen SUBQ SCH ×2 (09:45→20:38)
--- NOTE | 2016-06-23 11:36 | Infectious Diseases Prog Note ---
Assessment/Plan Assessment/Plan antibiotics : linezolid, zosyn A 1. bilateral feet and right fingers gangrene 2. renal failure improving 3. MRSA sepsis recently 4. DM P 1. continue linezolid, zosyn 2. will follow up cultures 3. plan per podiatry Subjective ROS Limited/Unobtainable: Yes Allergies: Coded Allergies: No Known Allergies (Unverified , 05/30/16) Objective Vital Signs Last 24 Hour Vital Signs Date Time Temp Pulse Resp B/P Pulse Ox O2 Delivery O2 Flow Rate FiO2 06/23/16 09:29 97.6 06/23/16 08:14 131/82 06/23/16 08:06 97.6 89 19 131/82 97 Room Air 89 06/23/16 04:00 97.9 97 22 130/78 94 Room Air 06/23/16 00:00 98.4 97 20 120/77 98 Room Air 06/22/16 20:00 97.9 95 17 137/88 93 Room Air 06/22/16 16:10 97.8 79 18 110/74 96 Room Air 06/22/16 12:30 79 Height (Feet): 5 Height (Inches): 8.00 Weight (Pounds): 150 Respiratory/Chest: lungs clear Cardiovascular: normal rate, regular rhythm, no gallop/murmur Abdomen: soft, non tender Extremities: other - + edema bilaterally, right fingers and bilateral toes necrotic Microbiology Date/Time Source Procedure Growth Status 06/22/16 02:05 Blood Blood Culture - Preliminary NO GROWTH AFTER 24 HOURS Resulted 06/22/16 02:00 Blood Blood Culture - Preliminary NO GROWTH AFTER 24 HOURS Resulted 06/22/16 01:53 Urine,Clean Catch Urine Culture - Preliminary Resulted 06/22/16 14:30 Foot Left Gram Stain Pending Resulted 06/22/16 14:30 Wound Culture - Preliminary Streptococcus Species Resulted Laboratory Tests Test 06/23/16 09:00 Sodium Level 143 mEQ/L (135-145) Potassium Level 3.2 mEQ/L (3.4-4.9) L Chloride Level 104 mEQ/L (98-107) Carbon Dioxide Level 22 mEQ/L (20-30) Anion Gap 17 (5-15) H Blood Urea Nitrogen 17 mg/dL (7-23) Creatinine 1.0 mg/dL (0.7-1.2) Estimat Glomerular Filtration Rate > 60 mL/min (>60) Glucose Level 158 mg/dL (74-106) H Calcium Level 8.5 mg/dL (8.6-10.2) L Total Creatine Kinase 229 U/L (38-174) H COLTON GONZALEZ Jun 23, 2016 11:36
[2016-06-23 11:51] VITALS: BP 120/55
--- NOTE | 2016-06-23 15:06 | Podiatric Progress Note ---
Assessment/Plan Patient Shoaib De Anda is a 56 year old male who was admitted on Jun 22, 2016 at 03:48 with sepsis Problems: (1) Foot ulcer, left (2) Ischemia of extremity (3) Sepsis Assessment/Plan - Tentative plan is to perform bilateral transmetatarsal amputations on Sunday. Working with OR mechanical equipment sales engineer to confirm date and time - Continue dressing changes - IV antibiotics per infectious disease specialist. Follow up final culture results Subjective Reason for consult Bilateral foot gangrene and left foot wound Allergies: Coded Allergies: No Known Allergies (Unverified , 05/30/16) Subjective Patient is unable to communicate effectively Objective Exam Last 24 Hour Vital Signs Date Time Temp Pulse Resp B/P Pulse Ox O2 Delivery O2 Flow Rate FiO2 06/23/16 11:51 98.9 76 20 120/55 97 Room Air 76 06/23/16 09:29 97.6 06/23/16 08:14 131/82 06/23/16 08:06 97.6 89 19 131/82 97 Room Air 89 06/23/16 04:00 97.9 97 22 130/78 94 Room Air 06/23/16 00:00 98.4 97 20 120/77 98 Room Air 06/22/16 20:00 97.9 95 17 137/88 93 Room Air 06/22/16 16:10 97.8 79 18 110/74 96 Room Air Laboratory Tests Test 06/23/16 09:00 Sodium Level 143 mEQ/L (135-145) Potassium Level 3.2 mEQ/L (3.4-4.9) L Chloride Level 104 mEQ/L (98-107) Carbon Dioxide Level 22 mEQ/L (20-30) Anion Gap 17 (5-15) H Blood Urea Nitrogen 17 mg/dL (7-23) Creatinine 1.0 mg/dL (0.7-1.2) Estimat Glomerular Filtration Rate > 60 mL/min (>60) Glucose Level 158 mg/dL (74-106) H Calcium Level 8.5 mg/dL (8.6-10.2) L Total Creatine Kinase 229 U/L (38-174) H Microbiology Date/Time Source Procedure Growth Status 06/22/16 02:05 Blood Blood Culture - Preliminary NO GROWTH AFTER 24 HOURS Resulted 06/22/16 01:53 Urine,Clean Catch Urine Culture - Preliminary Resulted 06/22/16 14:30 Foot Left Gram Stain - Final Resulted 06/22/16 14:30 Wound Culture - Preliminary Streptococcus Species Resulted Exam Narrative Right foot cyanotic changes at toes 1-4. Left foot cyanotic changes at toes 1- 5. There is a wound at the 3rd interdigital space. No purulence or malodor Lang Klein DPM Jun 23, 2016 15:06
[2016-06-23 16:00] VITALS: BP 127/79
--- NOTE | 2016-06-23 18:46 | Nephrology Progress Note ---
Assessment/Plan Problem List: (1) Acute renal failure (2) Rhabdomyolysis (3) Sepsis (4) Encephalopathy (5) Hypernatremia (6) Hypokalemia Assessment hypotonic iv ordered, continue rx sepsis replete K Subjective ROS Limited/Unobtainable: Yes Objective Objective Last 24 Hour Vital Signs Date Time Temp Pulse Resp B/P Pulse Ox O2 Delivery O2 Flow Rate FiO2 06/23/16 16:00 97.2 78 18 127/79 95 Room Air 06/23/16 11:51 98.9 76 20 120/55 97 Room Air 76 06/23/16 09:29 97.6 06/23/16 08:14 131/82 06/23/16 08:06 97.6 89 19 131/82 97 Room Air 89 06/23/16 04:00 97.9 97 22 130/78 94 Room Air 06/23/16 00:00 98.4 97 20 120/77 98 Room Air 06/22/16 20:00 97.9 95 17 137/88 93 Room Air Intake and Output 06/22/16 06/23/16 19:00 07:00 Intake Total 945.00 ml 750 ml Output Total 720 ml 700 ml Balance 225.00 ml 50 ml Intake Oral 120 ml IV Total 825.00 ml 750 ml Output Urine Total 720 ml 700 ml # Bowel Movements 1 Laboratory Tests 06/23/16 09:00: Sodium Level 143, Potassium Level 3.2L, Chloride Level 104, Carbon Dioxide Level 22, Anion Gap 17H, Blood Urea Nitrogen 17, Creatinine 1.0, Estimat Glomerular Filtration Rate > 60, Glucose Level 158H, Calcium Level 8.5L, Total Creatine Kinase 229H Height (Feet): 5 Height (Inches): 8.00 Weight (Pounds): 150 General Appearance: no apparent distress, confused EENT: normal ENT inspection Neck: normal alignment Cardiovascular: normal rate, regular rhythm Respiratory/Chest: lungs clear Abdomen: soft Extremities: moderate edema, other - ischemic digits Neurologic: motor weakness SHASTA REDDY Jun 23, 2016 18:46
[2016-06-23 20:00] VITALS: BP 169/62
[2016-06-23] MEDS ORDERED: Epogen (for ESRD on dialysis) SUBQ SCH ×2 (21:00)
[2016-06-23] MEDS ORDERED: KCl 10% 40mEq/30ml liquid ORAL ONE (21:00)
--- NOTE | 2016-06-23 21:18 | Wound Care Consultation ---
Wound Assessment Wound Assessment #1: Wound Present on Admission: Yes New Wound: No Status Change of Wound: No Wound Location Body Site Modif: mid Wound Location Body Site: sacral Wound Type: pressure ulcer Trista Test: Does not Trista Pressure Ulcer Stage: III Wound Thickness: Full Thickness Wound Length: 3.0 Wound Width: 3.0 Wound Depth: utd Percent of Wound Yarnell/Red: 50 Percent of Wound Bed Yellow/Wh: 50 Wound Drainage Description: Serosanguineous Wound Drainage Amount: Scant Wound Drainage Odor: None/Absent Tissue Surrounding Wound: Macerated Wound General Appearance: Reddened Wound Assessment #2: Wound Number: #2 Wound Present on Admission: Yes New Wound: No Status Change of Wound: No Wound Location Body Site Modif: left Wound Location Body Site: toe - all toes Wound Type: other - acute ischemia Trista Test: Does not Trista Wound Thickness: Full Thickness Percent of Wound Bed Yellow/Wh: 5 Percent of Wound Black/Brown: 95 Wound Drainage Description: Serosanguineous Wound Drainage Amount: Moderate Wound Drainage Odor: None/Absent Tissue Surrounding Wound: Denuded Wound General Appearance: Reddened Wound Assessment #3: Wound Number: #2 Wound Present on Admission: Yes New Wound: No Status Change of Wound: No Wound Location Body Site Modif: right Wound Location Body Site: toe - all toes Wound Type: other - acute ischemia Trista Test: Does not Trista Wound Thickness: Full Thickness Percent of Wound Black/Brown: 100 Wound Drainage Amount: None Wound Drainage Odor: None/Absent Tissue Surrounding Wound: Indurated Wound General Appearance: Reddened Wound Assessment #4: Wound Number: #4 Wound Present on Admission: Yes New Wound: No Status Change of Wound: No Wound Location Body Site Modif: right Wound Location Body Site: finger - tip Wound Type: other - acute ischemia Trista Test: Does not Trista Wound Thickness: Full Thickness Percent of Wound Black/Brown: 100 Wound Drainage Amount: None Wound Drainage Odor: None/Absent Tissue Surrounding Wound: Indurated Wound General Appearance: Blackened Wound Comment #1 Acute ischemia of bilateral all toes and right tip of fingers. skin black in color. no drainage noted from right fingers and toes. with moderate amount of serosanguineous drainage from the left 4th and 5th toes. #2 Sacral stage III pressure ulcer Recommendation -Turn and reposition -Keep clean and dry -Local wound care on toes and fingers as ordered by MD -Local wound care with application of triad and dry drg on sacral area -Optimize nutrition -Low air loss overlay mattress -Offload both heels -Assess and f/u accordingly for any changes BIN NOLAND RN Jun 23, 2016 21:18
[2016-06-24] VITALS: BP 135/81
[2016-06-24 04:00] VITALS: BP 136/83
[2016-06-24] MEDS: Piperacillin/Tazobactam 3.375 GM in D5W 110 ML IVPB SCH ×2 (04:06→16:54)
[2016-06-24] MEDS: NovoLOG Insulin Flexpen SUBQ SCH ×4 (06:29→21:13)
[2016-06-24 08:15] VITALS: BP 148/86
[2016-06-24] MEDS: Metoprolol 50mg tab ORAL SCH ×2 (08:47→21:08)
[2016-06-24] MEDS: Lisinopril 20mg tab ORAL SCH (08:47)
[2016-06-24] MEDS: Docusate 100mg cap ORAL SCH ×2 (08:47→17:58)
[2016-06-24] MEDS: Levemir Flexpen SUBQ SCH ×2 (08:53→21:13)
[2016-06-24] MEDS: Heparin 5000 units/ml inj SUBQ SCH ×2 (08:53→21:14)
--- NOTE | 2016-06-24 08:59 | General Progress Note ---
Assessment/Plan Problem List: (1) Metabolic acidosis ICD Codes: E87.2 - Acidosis SNOMED: 19102655 (2) Ischemia of foot ICD Codes: I99.8 - Other disorder of circulatory system SNOMED: 243804335, 223850744 (3) Chronic kidney disease ICD Codes: N18.9 - Chronic kidney disease, unspecified SNOMED: 562767617 Qualifiers: Qualified Codes: N18.9 - Chronic kidney disease, unspecified (4) Anemia, chronic disease ICD Codes: D63.8 - Anemia in other chronic diseases classified elsewhere SNOMED: 437504964 (5) Encephalopathy ICD Codes: G93.40 - Encephalopathy, unspecified SNOMED: 38042219, 684802236 (6) Rhabdomyolysis ICD Codes: M62.82 - Rhabdomyolysis SNOMED: 176379570 (7) Sepsis ICD Codes: A41.9 - Sepsis, unspecified organism SNOMED: 32676390 Qualifiers: Qualified Codes: A41.9 - Sepsis, unspecified organism Status: stable, not improved Assessment/Plan iv abx follow up cultures proceed with treansmetatarsal foot amputation on sunday per podiatry Subjective ROS Limited/Unobtainable: Yes Constitutional: Reports: malaise, weakness HEENT: Reports: no symptoms Cardiovascular: Reports: no symptoms Respiratory: Reports: no symptoms Gastrointestinal/Abdominal: Reports: no symptoms Genitourinary: Reports: no symptoms Neurologic/Psychiatric: Reports: pre-existing deficit Endocrine: Reports: no symptoms Hematologic/Lymphatic: Reports: anemia Allergies: Coded Allergies: No Known Allergies (Unverified , 05/30/16) All Systems: reviewed and negative except above Subjective same. awake. confused at baseline. no osteo on left foot xray but +gas in soft tissues. podiatry noted. Objective Last 24 Hour Vital Signs Date Time Temp Pulse Resp B/P Pulse Ox O2 Delivery O2 Flow Rate FiO2 06/24/16 08:47 81 148/86 06/24/16 08:47 148/86 06/24/16 08:15 97.6 81 20 148/86 98 Room Air 06/24/16 04:00 98.1 77 20 136/83 94 Room Air 06/24/16 00:00 97.2 78 20 135/81 94 Room Air 06/23/16 20:29 78 160/89 06/23/16 20:00 97.2 67 16 169/62 100 Room Air 06/23/16 16:00 97.2 78 18 127/79 95 Room Air 06/23/16 11:51 98.9 76 20 120/55 97 Room Air 76 06/23/16 09:29 97.6 Intake and Output 06/23/16 06/24/16 19:00 07:00 Intake Total 100 ml 1105.0 ml Output Total 600 ml 1200 ml Balance -500 ml -95.0 ml Intake Oral 100 ml 600 ml IV Total 505.0 ml Output Urine Total 600 ml 1200 ml # Bowel Movements 1 Laboratory Tests 06/23/16 09:00: Sodium Level 143, Potassium Level 3.2L, Chloride Level 104, Carbon Dioxide Level 22, Anion Gap 17H, Blood Urea Nitrogen 17, Creatinine 1.0, Estimat Glomerular Filtration Rate > 60, Glucose Level 158H, Calcium Level 8.5L, Total Creatine Kinase 229H Height (Feet): 5 Height (Inches): 8.00 Weight (Pounds): 150 Objective gangrene toe of right foot gangrene of toes and midfoot left foot gangrene fingers right hand DARYN JEREZ Jun 24, 2016 08:59
[2016-06-24 11:36] VITALS: BP 126/73
--- NOTE | 2016-06-24 12:13 | Podiatric Progress Note ---
Assessment/Plan Patient Shoaib De Anda is a 56 year old male who was admitted on Jun 22, 2016 at 03:48 with sepsis Problems: (1) Foot ulcer, left (2) Ischemia of foot (3) Sepsis (4) Post traumatic encephalopathy (5) Chronic kidney disease Assessment/Plan - Plan is for surgery on Sunday for bilateral transmetatarsal amputation. Spoke with nurse logistics supervisor who is working towards scheduling a specific time - Continue wound care - Ordered consent Subjective Reason for consult Bilateral foot gangrene and left foot wound Allergies: Coded Allergies: No Known Allergies (Unverified , 05/30/16) Subjective Patient is unable to communicate effectively Objective Exam Last 24 Hour Vital Signs Date Time Temp Pulse Resp B/P Pulse Ox O2 Delivery O2 Flow Rate FiO2 06/24/16 11:36 98.2 73 21 126/73 97 Room Air 06/24/16 08:47 81 148/86 06/24/16 08:47 148/86 06/24/16 08:15 97.6 81 20 148/86 98 Room Air 06/24/16 04:00 98.1 77 20 136/83 94 Room Air 06/24/16 00:00 97.2 78 20 135/81 94 Room Air 06/23/16 20:29 78 160/89 06/23/16 20:00 97.2 67 16 169/62 100 Room Air 06/23/16 16:00 97.2 78 18 127/79 95 Room Air Microbiology Date/Time Source Procedure Growth Status 06/22/16 02:05 Blood Blood Culture - Preliminary NO GROWTH AFTER 48 HOURS Resulted 06/22/16 04:54 Nasal Nares MRSA Culture - Final Staphylococcus Aureus - Mrsa Complete 06/22/16 01:53 Urine,Clean Catch Urine Culture - Final Eboni Albicans Complete 06/22/16 14:30 Foot Left Gram Stain - Final Resulted 06/22/16 14:30 Wound Culture - Preliminary Enterococcus Faecalis Resulted Exam Narrative Right foot cyanotic appearance of toes 1-4. Left foot cyanotic appearance of all 5 toes. There is a wound at the left foot 3rd interspace with mild serosanguineous drainage. Mild erythema and edema Lang Klein DPM Jun 24, 2016 12:13
[2016-06-24] MEDS ORDERED: Tubing IV Secondary IV ONE (13:13)
[2016-06-24] MEDS ORDERED: NS 550ML IV ONE (13:13)
[2016-06-24 15:55] VITALS: BP 137/77
[2016-06-24] MEDS: Fluconazole 100mg tab ORAL SCH (16:54)
[2016-06-24] MEDS ORDERED: Vancomycin 1250mg/D5W 275ml IVPB ONE ×2 (18:00)
--- NOTE | 2016-06-24 18:02 | Nephrology Progress Note ---
Assessment/Plan Problem List: (1) Acute renal failure (2) Rhabdomyolysis (3) Sepsis (4) Encephalopathy (5) Hypernatremia (6) Hypokalemia Assessment hypotonic iv ordered, continue rx sepsis replete K Subjective ROS Limited/Unobtainable: Yes Objective Objective Last 24 Hour Vital Signs Date Time Temp Pulse Resp B/P Pulse Ox O2 Delivery O2 Flow Rate FiO2 06/24/16 15:55 98.0 77 21 137/77 96 Room Air 06/24/16 11:36 98.2 73 21 126/73 97 Room Air 06/24/16 08:47 81 148/86 06/24/16 08:47 148/86 06/24/16 08:15 97.6 81 20 148/86 98 Room Air 06/24/16 04:00 98.1 77 20 136/83 94 Room Air 06/24/16 00:00 97.2 78 20 135/81 94 Room Air 06/23/16 20:29 78 160/89 06/23/16 20:00 97.2 67 16 169/62 100 Room Air Intake and Output 06/23/16 06/24/16 19:00 07:00 Intake Total 100 ml 1105.0 ml Output Total 600 ml 1200 ml Balance -500 ml -95.0 ml Intake Oral 100 ml 600 ml IV Total 505.0 ml Output Urine Total 600 ml 1200 ml # Bowel Movements 1 Height (Feet): 5 Height (Inches): 8.00 Weight (Pounds): 150 General Appearance: no apparent distress, confused EENT: normal ENT inspection Neck: non-tender Cardiovascular: normal rate Respiratory/Chest: lungs clear Abdomen: non tender, soft Extremities: moderate edema, other - dry gangrene SHASTA REDDY Jun 24, 2016 18:02
[2016-06-24 20:00] VITALS: BP 122/69
[2016-06-24] MEDS: Potassium Chloride 30 MEQ in 1/2 NS 1000ml 1,000 ML IV SCH (21:16)
[2016-06-25] VITALS: BP 131/64
[2016-06-25] MEDS: Piperacillin/Tazobactam 3.375 GM in D5W 110 ML IVPB SCH ×3 (03:16→23:35)
[2016-06-25 04:00] VITALS: BP 150/88
[2016-06-25] MEDS ORDERED: Vancomycin 750mg/D5W 275ml IVPB SCH ×2 (06:00)
[2016-06-25] MEDS: NovoLOG Insulin Flexpen SUBQ SCH ×4 (06:30→21:00)
[2016-06-25 08:02] VITALS: BP 148/91
--- NOTE | 2016-06-25 08:51 | General Progress Note ---
Assessment/Plan Problem List: (1) Metabolic acidosis ICD Codes: E87.2 - Acidosis SNOMED: 48913696 (2) Ischemia of foot ICD Codes: I99.8 - Other disorder of circulatory system SNOMED: 605371863, 528957319 (3) Chronic kidney disease ICD Codes: N18.9 - Chronic kidney disease, unspecified SNOMED: 167367566 Qualifiers: Qualified Codes: N18.9 - Chronic kidney disease, unspecified (4) Anemia, chronic disease ICD Codes: D63.8 - Anemia in other chronic diseases classified elsewhere SNOMED: 663497330 (5) Encephalopathy ICD Codes: G93.40 - Encephalopathy, unspecified SNOMED: 34948179, 980928284 (6) Rhabdomyolysis ICD Codes: M62.82 - Rhabdomyolysis SNOMED: 856099802 (7) Sepsis ICD Codes: A41.9 - Sepsis, unspecified organism SNOMED: 39042362 Qualifiers: Qualified Codes: A41.9 - Sepsis, unspecified organism Status: stable, progressing Assessment/Plan iv abx follow up cultures proceed with treansmetatarsal foot amputation on sunday per podiatry check labs Subjective ROS Limited/Unobtainable: Yes Constitutional: Reports: malaise, weakness HEENT: Reports: no symptoms Cardiovascular: Reports: no symptoms Respiratory: Reports: no symptoms Gastrointestinal/Abdominal: Reports: no symptoms Genitourinary: Reports: no symptoms Neurologic/Psychiatric: Reports: pre-existing deficit Endocrine: Reports: no symptoms Hematologic/Lymphatic: Reports: anemia Allergies: Coded Allergies: No Known Allergies (Unverified , 05/30/16) All Systems: reviewed and negative except above Subjective same. no overnight events. awake. confused at baseline. no osteo on left foot xray but +gas in soft tissues. podiatry noted. Objective Last 24 Hour Vital Signs Date Time Temp Pulse Resp B/P Pulse Ox O2 Delivery O2 Flow Rate FiO2 06/25/16 08:02 97.5 91 21 148/91 95 Room Air 06/25/16 04:00 96.6 63 18 150/88 97 Room Air 06/25/16 00:00 98.6 72 18 131/64 98 Room Air 06/24/16 21:08 74 122/69 06/24/16 20:00 97.0 74 18 122/69 100 Room Air 06/24/16 15:55 98.0 77 21 137/77 96 Room Air 06/24/16 11:36 98.2 73 21 126/73 97 Room Air Intake and Output 06/24/16 06/25/16 19:00 07:00 Intake Total 995.0 ml 528.708 ml Output Total 800 ml 1150 ml Balance 195.0 ml -621.292 ml Intake Oral 640 ml 180 ml IV Total 355.0 ml 348.708 ml Output Urine Total 800 ml 1150 ml # Bowel Movements 1 Height (Feet): 5 Height (Inches): 8.00 Weight (Pounds): 150 Objective gangrene toe of right foot gangrene of toes and midfoot left foot gangrene fingers right hand DARYN JEREZ Jun 25, 2016 08:51
[2016-06-25] MEDS: Potassium Chloride 30 MEQ in 1/2 NS 1000ml 1,000 ML IV SCH ×2 (09:00→22:46)
[2016-06-25] MEDS ORDERED: Tubing IV Secondary IV ONE (09:49)
[2016-06-25] MEDS ORDERED: NS 275ml ONE (09:49)
[2016-06-25] MEDS: Docusate 100mg cap ORAL SCH ×2 (09:51→17:54)
[2016-06-25] MEDS: Metoprolol 50mg tab ORAL SCH ×2 (09:52→21:42)
[2016-06-25] MEDS: Lisinopril 20mg tab ORAL SCH (09:52)
[2016-06-25] MEDS: Fluconazole 100mg tab ORAL SCH (09:52)
[2016-06-25] MEDS: Heparin 5000 units/ml inj SUBQ SCH (09:55)
[2016-06-25] MEDS: Levemir Flexpen SUBQ SCH ×2 (10:02→21:00)
[2016-06-25 10:59] LABS: BASOPHILS % (AUTO) 0.5 % (0.0-2.0); EOSINOPHILS % (AUTO) 2.5 % (0.0-3.0); MEAN CORPUSCULAR HEMOGLOBIN 23.9 PG (27.0-31.0); MEAN CORPUSCULAR HGB CONC 30.1 G/DL (32.0-36.0); MEAN CORPUSCULAR VOLUME 79 FL (80-99); MEAN PLATELET VOLUME 6.8 FL (6.5-10.1); MONOCYTES % (AUTO) 6.4 % (1.0-10.0); NEUTROPHILS % (AUTO) 76.6 % (45.0-75.0); PLATELET COUNT 321 K/UL (150-450); RED BLOOD COUNT 3.66 M/UL (4.70-6.10); RED CELL DISTRIBUTION WIDTH 18.7 % (11.6-14.8); WHITE BLOOD COUNT 6.9 K/UL (4.8-10.8)
--- NOTE | 2016-06-25 11:10 | Nephrology Progress Note ---
Assessment/Plan Problem List: (1) Acute renal failure (2) Rhabdomyolysis (3) Sepsis (4) Encephalopathy (5) Hypernatremia (6) Hypokalemia Assessment rx sepsis replete K, update lab pending Subjective ROS Limited/Unobtainable: Yes Objective Objective Last 24 Hour Vital Signs Date Time Temp Pulse Resp B/P Pulse Ox O2 Delivery O2 Flow Rate FiO2 06/25/16 09:52 91 148/91 06/25/16 09:52 148/91 06/25/16 08:02 97.5 91 21 148/91 95 Room Air 06/25/16 04:00 96.6 63 18 150/88 97 Room Air 06/25/16 00:00 98.6 72 18 131/64 98 Room Air 06/24/16 21:08 74 122/69 06/24/16 20:00 97.0 74 18 122/69 100 Room Air 06/24/16 15:55 98.0 77 21 137/77 96 Room Air 06/24/16 11:36 98.2 73 21 126/73 97 Room Air Intake and Output 06/24/16 06/25/16 19:00 07:00 Intake Total 995.0 ml 528.708 ml Output Total 800 ml 1150 ml Balance 195.0 ml -621.292 ml Intake Oral 640 ml 180 ml IV Total 355.0 ml 348.708 ml Output Urine Total 800 ml 1150 ml # Bowel Movements 1 Laboratory Tests 06/25/16 10:45: White Blood Count 6.9, Red Blood Count 3.66L, Hemoglobin 8.7L, Hematocrit 29.1L , Mean Corpuscular Volume 79L, Mean Corpuscular Hemoglobin 23.9L, Mean Corpuscular Hemoglobin Concent 30.1L, Red Cell Distribution Width 18.7H, Platelet Count 321, Mean Platelet Volume 6.8, Neutrophils (%) (Auto) 76.6H, Lymphocytes (%) (Auto) 14.0L, Monocytes (%) (Auto) 6.4, Eosinophils (%) (Auto) 2.5, Basophils (%) (Auto) 0.5, Sodium Level [Pending], Potassium Level [Pending] , Chloride Level [Pending], Carbon Dioxide Level [Pending], Blood Urea Nitrogen [Pending], Creatinine [Pending], Estimat Glomerular Filtration Rate [Pending], Glucose Level [Pending], Calcium Level [Pending], Total Bilirubin [Pending], Aspartate Amino Transf (AST/SGOT) [Pending], Alanine Aminotransferase (ALT/SGPT ) [Pending], Alkaline Phosphatase [Pending], Total Protein [Pending], Albumin [ Pending], Globulin [Pending] Height (Feet): 5 Height (Inches): 8.00 Weight (Pounds): 150 General Appearance: no apparent distress EENT: normal ENT inspection Neck: normal alignment Cardiovascular: normal rate Respiratory/Chest: lungs clear Abdomen: non tender Extremities: moderate edema, other - ischemic digits SHASTA REDDY Jun 25, 2016 11:10
[2016-06-25 11:17] LABS: ALANINE AMINOTRANSFERASE 30 U/L (3-41); ALBUMIN/GLOBULIN RATIO 0.5 (1.0-2.7); ANION GAP 16 (5-15); ASPARTATE AMINO TRANSFERASE 29 U/L (5-40); CALCIUM 8.6 mg/dL (8.6-10.2); CARBON DIOXIDE 23 mEQ/L (20-30); CHLORIDE 98 mEQ/L (98-107); CREATININE 0.8 mg/dL (0.7-1.2); GLOMERULAR FILTRATION RATE > 60 mL/min (>60); HEMOLYSIS 0; POTASSIUM 3.7 mEQ/L (3.4-4.9); SODIUM 137 mEQ/L (135-145); TOTAL PROTEIN 7.5 g/dL (6.6-8.7)
[2016-06-25 11:36] VITALS: BP 147/89
--- NOTE | 2016-06-25 12:16 | Infectious Diseases Prog Note ---
Assessment/Plan Assessment/Plan A 1. bilateral feet and right fingers gangrene 2. renal failure improving 3. MRSA sepsis recently 4. DM P 1. continue linezolid, Zosyn 2. will have toe amputations Subjective ROS Limited/Unobtainable: Yes Allergies: Coded Allergies: No Known Allergies (Unverified , 05/30/16) Objective Vital Signs Last 24 Hour Vital Signs Date Time Temp Pulse Resp B/P Pulse Ox O2 Delivery O2 Flow Rate FiO2 06/25/16 11:36 97.8 88 21 147/89 95 Room Air 06/25/16 09:52 91 148/91 06/25/16 09:52 148/91 06/25/16 08:02 97.5 91 21 148/91 95 Room Air 06/25/16 04:00 96.6 63 18 150/88 97 Room Air 06/25/16 00:00 98.6 72 18 131/64 98 Room Air 06/24/16 21:08 74 122/69 06/24/16 20:00 97.0 74 18 122/69 100 Room Air 06/24/16 15:55 98.0 77 21 137/77 96 Room Air Height (Feet): 5 Height (Inches): 8.00 Weight (Pounds): 150 General Appearance: no acute distress HEENT: mucous membranes moist Respiratory/Chest: lungs clear Cardiovascular: normal rate Abdomen: soft, non tender Extremities: other Skin: ulcers, other - left foot Neurologic/Psychiatric: alert, disoriented Microbiology Date/Time Source Procedure Growth Status 06/22/16 14:30 Foot Left Gram Stain - Final Complete 06/22/16 14:30 Wound Culture - Final Enterococcus Faecalis Complete Laboratory Tests Test 06/25/16 10:45 White Blood Count 6.9 K/UL (4.8-10.8) Red Blood Count 3.66 M/UL (4.70-6.10) L Hemoglobin 8.7 G/DL (14.2-18.0) L Hematocrit 29.1 % (42.0-52.0) L Mean Corpuscular Volume 79 FL (80-99) L Mean Corpuscular Hemoglobin 23.9 PG (27.0-31.0) L Mean Corpuscular Hemoglobin Concent 30.1 G/DL (32.0-36.0) L Red Cell Distribution Width 18.7 % (11.6-14.8) H Platelet Count 321 K/UL (150-450) Mean Platelet Volume 6.8 FL (6.5-10.1) Neutrophils (%) (Auto) 76.6 % (45.0-75.0) H Lymphocytes (%) (Auto) 14.0 % (20.0-45.0) L Monocytes (%) (Auto) 6.4 % (1.0-10.0) Eosinophils (%) (Auto) 2.5 % (0.0-3.0) Basophils (%) (Auto) 0.5 % (0.0-2.0) Sodium Level 137 mEQ/L (135-145) Potassium Level 3.7 mEQ/L (3.4-4.9) Chloride Level 98 mEQ/L (98-107) Carbon Dioxide Level 23 mEQ/L (20-30) Anion Gap 16 (5-15) H Blood Urea Nitrogen 8 mg/dL (7-23) Creatinine 0.8 mg/dL (0.7-1.2) Estimat Glomerular Filtration Rate > 60 mL/min (>60) Glucose Level 196 mg/dL (74-106) H Calcium Level 8.6 mg/dL (8.6-10.2) Total Bilirubin 0.3 mg/dL (0.0-1.2) Aspartate Amino Transf (AST/SGOT) 29 U/L (5-40) Alanine Aminotransferase (ALT/SGPT) 30 U/L (3-41) Alkaline Phosphatase 153 U/L (40-129) H Total Protein 7.5 g/dL (6.6-8.7) Albumin 2.7 g/dL (3.5-5.2) L Globulin 4.8 g/dL Albumin/Globulin Ratio 0.5 (1.0-2.7) L Current Medications Medications (Trade) Dose Ordered Sig/Mateo Route PRN Reason Start Time Stop Time Status Last Admin Dose Admin Acetaminophen (Tylenol) 650 mg Q4H PRN ORAL Prn Headache/Temp > 101 06/22/16 20:30 07/22/16 20:29 06/23/16 08:16 Dextrose (Dextrose 50%) STAT PRN IV Hypoglycemia 06/22/16 20:30 07/22/16 20:29 Docusate Sodium (Colace) 100 mg TWICE A DAY ORAL 1/27/17 09:00 07/23/16 08:59 06/25/16 09:51 Epoetin Zia (Procrit (for ESRD on dialysis)) 10,000 units SUN-SUN-SUN SUBQ 06/23/16 21:00 07/23/16 20:59 06/23/16 20:29 Fluconazole (Diflucan) 100 mg DAILY ORAL 06/24/16 17:00 07/01/16 16:59 06/25/16 09:52 Heparin Sodium (Porcine) (Heparin 5000 units/ml) 5,000 units EVERY 12 HOURS SUBQ 06/23/16 09:00 07/23/16 08:59 06/25/16 09:55 Insulin Aspart (NovoLOG) BEFORE MEALS AND HS SUBQ 06/22/16 21:00 07/22/16 20:59 06/24/16 21:13 Insulin Detemir (Levemir) 5 units Q12HR SUBQ 06/22/16 21:00 07/22/16 20:59 06/25/16 10:02 Levetiracetam (Keppra) 500 mg EVERY 12 HOURS ORAL 06/22/16 21:00 07/22/16 20:59 06/25/16 09:52 Lisinopril (Prinivil) 20 mg DAILY ORAL 06/23/16 09:00 07/23/16 08:59 06/25/16 09:52 Metoprolol Tartrate (Lopressor) 50 mg EVERY 12 HOURS ORAL 06/22/16 21:00 07/22/16 20:59 06/25/16 09:52 Piperacillin Sod/ Tazobactam Sod/ Dextrose (Zosyn/D5W) 110 ml @ 27.5 mls/hr Q12HR@0400,1600 IVPB 06/23/16 04:00 06/30/16 03:59 06/25/16 03:16 Potassium Chloride/Sodium Chloride (KCl/0.45% NS 1000ml) 1,015 ml @ 75 mls/hr [id number] IV 06/24/16 19:30 07/24/16 19:29 06/24/16 21:16 Sennosides (Senokot) 8.6 mg DAILY ORAL 06/23/16 09:00 07/23/16 08:59 06/25/16 09:52 Vancomycin HCl 750 mg/Dextrose 275 ml @ 183.708 mls/hr Q12HR@0600,1800 IVPB 06/25/16 06:00 06/30/16 05:59 06/25/16 05:46 Vancomycin HCl 1 ea 1 ea DAILY PRN MISC . 06/24/16 16:15 07/24/16 16:14 DE REILLY Jun 25, 2016 12:16
[2016-06-25 16:00] VITALS: BP 144/81
[2016-06-25 20:00] VITALS: BP 143/95
--- NOTE | 2016-06-25 21:34 | Podiatric Progress Note ---
Assessment/Plan Patient Shoaib De Anda is a 56 year old male who was admitted on Jun 22, 2016 at 03:48 with Sepsis Problems: (1) Foot ulcer, left (2) Ischemia of foot (3) Sepsis (4) Post traumatic encephalopathy Assessment/Plan - Surgery is planned for tomorrow. NPO at midnight. Heparin is held - Spoke to patient's niece, Elvira De Anda, in detail regarding the procedure. All questions and concerns were addressed - Continue antibiotics per infectious disease specialist recommendations Subjective Reason for consult Bilateral foot gangrenous toes Allergies: Coded Allergies: No Known Allergies (Unverified , 05/30/16) Subjective Patient unable to communicate effectively Objective Exam Last 24 Hour Vital Signs Date Time Temp Pulse Resp B/P Pulse Ox O2 Delivery O2 Flow Rate FiO2 06/25/16 20:00 98.2 108 19 143/95 98 Room Air 06/25/16 16:00 99.1 95 19 144/81 96 Room Air 06/25/16 11:36 97.8 88 21 147/89 95 Room Air 06/25/16 09:52 91 148/91 06/25/16 09:52 148/91 06/25/16 08:02 97.5 91 21 148/91 95 Room Air 06/25/16 04:00 96.6 63 18 150/88 97 Room Air 06/25/16 00:00 98.6 72 18 131/64 98 Room Air Laboratory Tests Test 06/25/16 10:45 White Blood Count 6.9 K/UL (4.8-10.8) Red Blood Count 3.66 M/UL (4.70-6.10) L Hemoglobin 8.7 G/DL (14.2-18.0) L Hematocrit 29.1 % (42.0-52.0) L Mean Corpuscular Volume 79 FL (80-99) L Mean Corpuscular Hemoglobin 23.9 PG (27.0-31.0) L Mean Corpuscular Hemoglobin Concent 30.1 G/DL (32.0-36.0) L Red Cell Distribution Width 18.7 % (11.6-14.8) H Platelet Count 321 K/UL (150-450) Mean Platelet Volume 6.8 FL (6.5-10.1) Neutrophils (%) (Auto) 76.6 % (45.0-75.0) H Lymphocytes (%) (Auto) 14.0 % (20.0-45.0) L Monocytes (%) (Auto) 6.4 % (1.0-10.0) Eosinophils (%) (Auto) 2.5 % (0.0-3.0) Basophils (%) (Auto) 0.5 % (0.0-2.0) Sodium Level 137 mEQ/L (135-145) Potassium Level 3.7 mEQ/L (3.4-4.9) Chloride Level 98 mEQ/L (98-107) Carbon Dioxide Level 23 mEQ/L (20-30) Anion Gap 16 (5-15) H Blood Urea Nitrogen 8 mg/dL (7-23) Creatinine 0.8 mg/dL (0.7-1.2) Estimat Glomerular Filtration Rate > 60 mL/min (>60) Glucose Level 196 mg/dL (74-106) H Calcium Level 8.6 mg/dL (8.6-10.2) Total Bilirubin 0.3 mg/dL (0.0-1.2) Aspartate Amino Transf (AST/SGOT) 29 U/L (5-40) Alanine Aminotransferase (ALT/SGPT) 30 U/L (3-41) Alkaline Phosphatase 153 U/L (40-129) H Total Protein 7.5 g/dL (6.6-8.7) Albumin 2.7 g/dL (3.5-5.2) L Globulin 4.8 g/dL Albumin/Globulin Ratio 0.5 (1.0-2.7) L Microbiology Date/Time Source Procedure Growth Status 06/22/16 02:05 Blood Blood Culture - Preliminary NO GROWTH AFTER 72 HOURS Resulted 06/22/16 04:54 Nasal Nares MRSA Culture - Final Staphylococcus Aureus - Mrsa Complete 06/22/16 01:53 Urine,Clean Catch Urine Culture - Final Eboni Albicans Complete 06/22/16 14:30 Foot Left Gram Stain - Final Complete 06/22/16 14:30 Wound Culture - Final Enterococcus Faecalis Complete Exam Narrative No change in physical exam since yesterday. Right foot with cyanotic appearing toes 1-4 and left foot with cyanotic toes 1-5. There is an open wound at the left foot at the 3rd interdigital space Lang Klein DPM Jun 25, 2016 21:34
[2016-06-25] MEDS: Vancomycin 750mg/D5W 275ml IVPB SCH ×2 (21:43)
[2016-06-26] VITALS (15 sets, daily range): BP systolic 133–164; BP diastolic 77–112
--- NOTE | 2016-06-26 03:47 | Progress Note ---
DATE: 06/25/2016 CARDIOLOGY PROGRESS NOTE SUBJECTIVE: The patient continues to have signs of acute infection of his foot. Transmetatarsal amputation is planned. The patient remains on IV antibiotics. Blood pressure has stabilized. OBJECTIVE: VITAL SIGNS: Blood pressure 150/88, pulse 63, respirations 18, and oxygen saturation 95% to 98% on room air. He is afebrile. NECK: Supple. LUNGS: Clear. CARDIAC: Regular rhythm and rate. Normal S1 and S2 with a fourth heart sound. ABDOMEN: Soft and nontender. EXTREMITIES: With dressing in place over the foot with gangrenous toes noted. IMPRESSION: 1. Peripheral artery disease. 2. Gangrene osteomyelitis. 3. Sepsis, recovered. 4. Shock, recovered. 5. Hypovolemia. PLAN: 1. Anticoagulation until surgery. 2. Amputation. 3. Continue hydration. 4. Perioperative beta-michelle prophylaxis. Morales Serrano M.D. DR: PAYAM JOB#: [id number] CC:
[2016-06-26] MEDS: Piperacillin/Tazobactam 3.375 GM in D5W 110 ML IVPB SCH ×2 (05:47→14:14)
[2016-06-26] MEDS: NovoLOG Insulin Flexpen SUBQ SCH ×3 (06:30→21:00)
[2016-06-26] MEDS ORDERED: Bacitracin 50000 Units Vial ONE (07:30)
--- NOTE | 2016-06-26 07:33 | Pre-Procedure Note/Attestation ---
Pre-Procedure Note/Attestation Complete Prior to Procedure Planned Procedure: bilateral Procedure Narrative: Bilateral foot transmetatarsal amputation Indications for Procedure Pre-Operative Diagnosis: Bilateral forefoot gangrene with left foot infected ulcer Attestation I attest that I discussed the nature of the procedure; its benefits; risks and complications; and alternatives (and the risks and benefits of such alternatives ), prior to the procedure, with the patient (or the patient's legal manufacturers representative). I attest that, if there was a reasonable possibility of needing a blood transfusion, the patient (or the patient's legal manufacturers representative) was given the [facility] [place] [facility] standardized written summary, pursuant to the Amos Cheikh Blood Safety Act ([place] Health and Safety Code # 1645, as amended). I attest that I re-evaluated the patient just prior to the surgery and that there has been no change in the patient's H&P, except as documented below: Lang Klein DPM Jun 26, 2016 07:33
--- NOTE | 2016-06-26 07:56 | General Progress Note ---
Assessment/Plan Problem List: (1) Metabolic acidosis ICD Codes: E87.2 - Acidosis SNOMED: 94762213 (2) Ischemia of foot ICD Codes: I99.8 - Other disorder of circulatory system SNOMED: 130797131, 370284986 (3) Chronic kidney disease ICD Codes: N18.9 - Chronic kidney disease, unspecified SNOMED: 520639263 Qualifiers: Qualified Codes: N18.9 - Chronic kidney disease, unspecified (4) Anemia, chronic disease ICD Codes: D63.8 - Anemia in other chronic diseases classified elsewhere SNOMED: 191622745 (5) Encephalopathy ICD Codes: G93.40 - Encephalopathy, unspecified SNOMED: 72629612, 226458238 (6) Rhabdomyolysis ICD Codes: M62.82 - Rhabdomyolysis SNOMED: 127210866 (7) Sepsis ICD Codes: A41.9 - Sepsis, unspecified organism SNOMED: 80491045 Qualifiers: Qualified Codes: A41.9 - Sepsis, unspecified organism Status: stable, progressing Assessment/Plan iv abx follow up cultures proceed with treansmetatarsal foot amputation on today per podiatry stable for surgery from med stand point Subjective ROS Limited/Unobtainable: Yes Constitutional: Reports: malaise, weakness HEENT: Reports: no symptoms Cardiovascular: Reports: no symptoms Respiratory: Reports: no symptoms Gastrointestinal/Abdominal: Reports: no symptoms Genitourinary: Reports: incontinence Neurologic/Psychiatric: Reports: pre-existing deficit Endocrine: Reports: no symptoms Hematologic/Lymphatic: Reports: anemia Allergies: Coded Allergies: No Known Allergies (Unverified , 05/30/16) All Systems: reviewed and negative except above Subjective same. no overnight events. awake. confused at baseline. no osteo on left foot xray but +gas in soft tissues. podiatry noted. npo for surgery today Objective Last 24 Hour Vital Signs Date Time Temp Pulse Resp B/P Pulse Ox O2 Delivery O2 Flow Rate FiO2 06/26/16 04:00 98.9 98 19 151/97 98 Room Air 06/26/16 00:00 97.9 90 20 133/77 97 Room Air 06/25/16 21:42 108 143/95 06/25/16 20:00 98.2 108 19 143/95 98 Room Air 06/25/16 16:00 99.1 95 19 144/81 96 Room Air 06/25/16 11:36 97.8 88 21 147/89 95 Room Air 06/25/16 09:52 91 148/91 06/25/16 09:52 148/91 06/25/16 08:02 97.5 91 21 148/91 95 Room Air Intake and Output 06/25/16 06/26/16 19:00 07:00 Intake Total 1195 ml 295 ml Output Total 750 ml 2100 ml Balance 445 ml -1805 ml Intake Oral 520 ml 70 ml IV Total 675 ml 225 ml Output Urine Total 750 ml 2100 ml # Voids 1 # Bowel Movements 1 1 Laboratory Tests 06/25/16 10:45: White Blood Count 6.9, Red Blood Count 3.66L, Hemoglobin 8.7L, Hematocrit 29.1L , Mean Corpuscular Volume 79L, Mean Corpuscular Hemoglobin 23.9L, Mean Corpuscular Hemoglobin Concent 30.1L, Red Cell Distribution Width 18.7H, Platelet Count 321, Mean Platelet Volume 6.8, Neutrophils (%) (Auto) 76.6H, Lymphocytes (%) (Auto) 14.0L, Monocytes (%) (Auto) 6.4, Eosinophils (%) (Auto) 2.5, Basophils (%) (Auto) 0.5, Sodium Level 137, Potassium Level 3.7, Chloride Level 98, Carbon Dioxide Level 23, Anion Gap 16H, Blood Urea Nitrogen 8, Creatinine 0.8, Estimat Glomerular Filtration Rate > 60, Glucose Level 196H, Calcium Level 8.6, Total Bilirubin 0.3, Aspartate Amino Transf (AST/SGOT) 29, Alanine Aminotransferase (ALT/SGPT) 30, Alkaline Phosphatase 153H, Total Protein 7.5, Albumin 2.7L, Globulin 4.8, Albumin/Globulin Ratio 0.5L Height (Feet): 5 Height (Inches): 8.00 Weight (Pounds): 150 Objective gangrene toe of right foot gangrene of toes and midfoot left foot gangrene fingers right hand DARYN JEREZ Jun 26, 2016 07:56
[2016-06-26] MEDS: Vancomycin 750mg/D5W 275ml IVPB SCH ×2 (08:30)
[2016-06-26] MEDS: Docusate 100mg cap ORAL SCH ×2 (09:00→18:00)
[2016-06-26] MEDS: Lisinopril 20mg tab ORAL SCH (09:00)
[2016-06-26] MEDS: Metoprolol 50mg tab ORAL SCH ×3 (09:00→22:26)
[2016-06-26] MEDS: Fluconazole 100mg tab ORAL SCH (09:00)
[2016-06-26] MEDS: Levemir Flexpen SUBQ SCH ×2 (09:00→21:00)
[2016-06-26] MEDS ORDERED: NS Irrig 2000ml IRRIG ONE (09:30)
[2016-06-26] MEDS ORDERED: Propofol 10mg/ml 20ml IV ONE (09:30)
[2016-06-26] MEDS ORDERED: fentaNYL 100 mcg/2 mL IV ONE ×2 (09:30→11:20)
[2016-06-26] MEDS ORDERED: NS 110ml ONE (09:30)
--- NOTE | 2016-06-26 10:50 | Brief Operative Note ---
Immediate Post Operative Note Operative Note Chief Complaint: Bilateteral forefoot gangrene Pre-op Diagnosis: Bilateral forefoot gangrene with left foot infected ulcer Procedure: Bilateral foot transmetatarsal amputation Post-op Diagnosis: same as pre-op Findings: consistent w/pre-op dx studies Surgeon: Lang Klein DPM Additional Surgeons: Silvino Blas DPM (Jimenez) Anesthesiologist: Dr Scott Anesthesia: general Specimen: yes Complications: none Estimated Blood Loss: volume - 30 Drains: ANGELO Implant(s) used?: No Lang Klein DPM Jun 26, 2016 10:50
[2016-06-26] MEDS ORDERED: Norco 10mg/325mg tab ORAL PRN (11:00)
--- NOTE | 2016-06-26 11:08 | Immediate Post-Op Evaluation ---
Immediate Post-Op Evalulation Immediate Post-Op Evalulation Procedure: B/L transmetarsal amputation Date of Evaluation: Jun 26, 2016 Time of Evaluation: 11:04 IV Fluids: 600ml Blood Products: none Estimated Blood Loss: 20ml Urinary Output: 100ml Blood Pressure Systolic: 150 Blood Pressure Diastolic: 90 Pulse Rate: 110 Respiratory Rate: 18 O2 Sat by Pulse Oximetry: 100 Temperature (Fahrenheit): 98.3 Pain Score (1-10): 0 Nausea: No Vomiting: No Complications none Patient Status: awake, reacts, patent Hydration Status: adequate Drug: n/a HENRY WEINBERG D.O. Jun 26, 2016 11:08
[2016-06-26] MEDS ORDERED: Labetalol 5mg/ml 20ml vial IV PRN (11:15)
[2016-06-26] MEDS: fentaNYL 100 mcg/2 mL IV PRN ×3 (11:20→11:49)
--- NOTE | 2016-06-26 11:28 | Infectious Diseases Prog Note ---
Assessment/Plan Assessment/Plan antibiotics : vancomycin iv, zosyn, fluconazole A 1. bilateral feet and right fingers gangrene 2. renal failure improving 3. MRSA sepsis recently 4. DM P 1. continue vancomycin iv, zosyn, fluconazole 2. will follow up cultures 3. bilateral TMA planned Subjective ROS Limited/Unobtainable: Yes Allergies: Coded Allergies: No Known Allergies (Unverified , 05/30/16) Objective Vital Signs Last 24 Hour Vital Signs Date Time Temp Pulse Resp B/P Pulse Ox O2 Delivery O2 Flow Rate FiO2 06/26/16 11:08 110 18 100 06/26/16 08:18 97.9 108 21 134/89 95 Room Air 06/26/16 04:00 98.9 98 19 151/97 98 Room Air 06/26/16 00:00 97.9 90 20 133/77 97 Room Air 06/25/16 21:42 108 143/95 06/25/16 20:00 98.2 108 19 143/95 98 Room Air 06/25/16 16:00 99.1 95 19 144/81 96 Room Air 06/25/16 11:36 97.8 88 21 147/89 95 Room Air Height (Feet): 5 Height (Inches): 8.00 Weight (Pounds): 150 Respiratory/Chest: lungs clear Cardiovascular: normal rate, regular rhythm, no gallop/murmur Abdomen: soft, non tender Extremities: other - + edema and necrotic toes bilaterally, right fingers necrotic Laboratory Tests Test 06/26/16 08:10 Vancomycin Level Trough 10.1 ug/mL (5.0-12.0) COLTON GONZALEZ Jun 26, 2016 11:28
[2016-06-26] MEDS ORDERED: Hydromorphone 0.5mg/0.5ml inj IVP PRN (11:30)
[2016-06-26] MEDS ORDERED: LORazepam Inj 2mg/ml 1ml ONE (11:43)
[2016-06-26] MEDS ORDERED: LORazepam Inj 2mg/ml 1ml IV ONE (11:45)
[2016-06-26] MEDS: Potassium Chloride 30 MEQ in 1/2 NS 1000ml 1,000 ML IV SCH ×2 (12:06→19:10)
[2016-06-26] MEDS ORDERED: Morphine Sulfate 2mg/ml Inj IM PRN (14:45)
[2016-06-26] MEDS ORDERED: Morphine Sulfate 2mg/ml Inj IVP PRN (15:30)
--- NOTE | 2016-06-26 15:39 | Nephrology Progress Note ---
Assessment/Plan Problem List: (1) Acute renal failure (2) Rhabdomyolysis (3) Sepsis (4) Encephalopathy (5) Hypernatremia (6) Hypokalemia Assessment rx sepsis replete K, update lab pending Plan continue maintenance hydration Subjective ROS Limited/Unobtainable: Yes Objective Objective Last 24 Hour Vital Signs Date Time Temp Pulse Resp B/P Pulse Ox O2 Delivery O2 Flow Rate FiO2 06/26/16 14:37 97.9 135 21 148/90 98 Nasal Cannula 2.0 06/26/16 13:53 98.2 125 21 150/87 97 Room Air 06/26/16 12:19 97.0 06/26/16 11:59 97.2 130 22 161/93 98 Nasal Cannula 3.0 06/26/16 11:45 131 18 157/91 98 Nasal Cannula 3.0 06/26/16 11:37 124 20 151/100 100 Simple Mask 8.0 06/26/16 11:20 124 20 162/97 100 Simple Mask 8.0 06/26/16 11:10 126 20 154/112 100 Simple Mask 8.0 06/26/16 11:08 110 18 100 06/26/16 11:05 125 20 162/104 100 Simple Mask 8.0 06/26/16 10:59 97.0 122 20 157/108 100 Simple Mask 8.0 06/26/16 08:18 97.9 108 21 134/89 95 Room Air 06/26/16 04:00 98.9 98 19 151/97 98 Room Air 06/26/16 00:00 97.9 90 20 133/77 97 Room Air 06/25/16 21:42 108 143/95 06/25/16 20:00 98.2 108 19 143/95 98 Room Air 06/25/16 16:00 99.1 95 19 144/81 96 Room Air Intake and Output 06/25/16 06/26/16 19:00 07:00 Intake Total 1195 ml 885.0 ml Output Total 750 ml 2100 ml Balance 445 ml -1215.0 ml Intake Oral 520 ml 70 ml IV Total 675 ml 815.0 ml Output Urine Total 750 ml 2100 ml # Voids 1 # Bowel Movements 1 1 Laboratory Tests 06/26/16 08:10: Vancomycin Level Trough 10.1 Height (Feet): 5 Height (Inches): 8.00 Weight (Pounds): 150 General Appearance: lethargic, confused EENT: normal ENT inspection Neck: normal alignment Cardiovascular: normal rate, regular rhythm Respiratory/Chest: lungs clear Abdomen: non tender Extremities: moderate edema Neurologic: motor weakness SHASTA REDDY Jun 26, 2016 15:39
[2016-06-26] MEDS ORDERED: Vancomycin 1gm/D5W 275ml IVPB SCH ×2 (16:00)
[2016-06-26] MEDS ORDERED: Acetaminophen 650 MG SUPP RECTAL PRN (16:30)
[2016-06-26] MEDS ORDERED: Potassium Chloride 30 MEQ in 1/2 NS 1000ml 1,000 ML IV SCH (17:30)
[2016-06-26] MEDS ORDERED: Acetaminophen 650mg/20.3ml ORAL PRN (17:30)
--- NOTE | 2016-06-26 19:13 | Cardiology Report ---
APPROVED REPORT EKG Measurement Heart [id number] [place] [id number] Sinus tachycardia Possible Left atrial enlargement Left ventricular hypertrophy with repolarization abnormality Abnormal ECG
[2016-06-26 20:40] LABS: ABG BASE EXCESS 0.3; ABG PCO2 29.3 mmHg (35.0-45.0)
[2016-06-26 20:41] LABS: ABG ALLEN TEST POSITIVE
[2016-06-26] MEDS ORDERED: Piperacillin/Tazobactam 3.375 GM in D5W 110 ML IVPB SCH (22:00)
[2016-06-26] MEDS: Acetaminophen 650 MG SUPP RECTAL PRN (22:27)
[2016-06-26] MEDS: Epogen (for ESRD on dialysis) SUBQ SCH (22:37)
[2016-06-27] MEDS ORDERED: Metoprolol 5mg/5ml Inj IVP SCH ×2 (00:15→02:45)
[2016-06-27 00:24] VITALS: BP 114/59
[2016-06-27] MEDS: Morphine Sulfate 2mg/ml Inj IVP PRN ×2 (00:32→22:40)
[2016-06-27] MEDS ORDERED: levETIRAcetam 500mg vial IV ONE (02:16)
[2016-06-27] MEDS: levETIRAcetam 500 MG in D5W 110 ML IVPB SCH ×3 (02:36→20:44)
[2016-06-27] MEDS ORDERED: Metoprolol 5mg/5ml Inj IVPB SCH (02:45)
--- NOTE | 2016-06-27 03:48 | Progress Note ---
DATE: 06/26/2016 CARDIOLOGY PROGRESS NOTE SUBJECTIVE: The patient is status post bilateral foot transmetatarsal amputation. Postoperatively, he is withdrawn, confused, tachycardic with labile blood pressure. The case was discussed in detail with the nursing staff. OBJECTIVE: VITAL SIGNS: Temperature 101.8 degrees, blood pressure 141/80, heart rate 149, respiratory rate 24, and oxygen saturation 97% on 2 liters. CHEST: Bilateral breath sounds. HEART: Regular rhythm. Rapid rate. Normal S1 and S2. ABDOMEN: Soft. EXTREMITIES: With no edema. Feet have dressing in place. IMPRESSION: 1. Status post amputation of bilateral gangrene. 2. Fevers. 3. Possible sepsis. 4. Osteomyelitis. 5. Anemia. 6. Moderate protein-calorie malnutrition. 7. Postoperative pain secondary sinus tachycardia. 8. Intravascular volume depletion. 9. Peripheral artery disease. 10. Insulin-requiring diabetes mellitus. 11. Status post diabetic ketoacidosis. 12. Condition remains serious with prognosis guarded. PLAN: 1. Volume resuscitation. 2. Saline bolus is ordered. 3. Pain control. 4. Continue cardiac monitoring. 5. Antibiotics per Infectious Disease compensation consultant. 6. Wound care. 7. Recheck hemoglobin. Transfuse if less than 8 g. 8. Protein supplement and oral intake once more alert. 9. For now medications will be converted from oral to IV route due to postoperative mentation. Morales Serrano M.D. DR: IGNACIO JOB#: [id number] CC:
--- NOTE | 2016-06-27 03:48 | Operative Note - Dictated ---
DATE OF OPERATION: 06/26/2016 PREOPERATIVE DIAGNOSIS: Bilateral forefoot gangrene with left foot infected ulcer. PROCEDURE: Bilateral foot transmetatarsal amputation. POSTOPERATIVE DIAGNOSIS: Bilateral forefoot gangrene with left foot infected ulcer. FINDINGS: Bilateral foot toe with gangrene. SURGEON: Lang Klein DPM ADDITIONAL SURGEON: Silvino Blas D.P.M. ANESTHESIOLOGIST: Dr. Scott. ANESTHESIA: General. SPECIMENS: Bilateral forefoot. COMPLICATIONS: None. ESTIMATED BLOOD LOSS: 30 mL. DRAINS: Bilateral ANGELO drains. DESCRIPTION OF PROCEDURE: The patient was brought into the operating room and was assisted onto the operating table in supine position. Bilateral ankle tourniquets were applied. Bilateral feet were then prepped and draped in the usual aseptic manner. A time-out was performed. Identical procedures were performed on bilateral feet. However, the gangrene on the left forefoot was worse than the right. Therefore, a more proximal amputation was performed on the left. An Esmarch was used. The tourniquet was inflated to 250 mmHg. An incision was made on bilateral feet to create a fish-mouth. All bleeding vessels were cauterized. The incision was deepened down to the level of the bone. A sagittal saw was then deployed to cut the metatarsal one through five. Gangrenous nonviable tissue was removed. At this time, bilateral forefoot were removed. The area was irrigated with copious amounts of normal saline solution. The skin flaps were then reapproximated using 3-0 Vicryl. The ANGELO drains were placed bilaterally. The skin was reapproximated and was then closed using skin raysa. The area was dressed with Betadine moistened Adaptic, 4 x 4 gauze, ABD pad, Kerlix, and Coban. Tourniquet was deflated. The patient tolerated the surgery well without any complications. He was then transferred to the postoperative care unit with vital signs stable. After a period of observation, he was transported back to his room. Lang Klein DPM DR: Aiden JOB#: [id number] CC:
[2016-06-27 04:00] VITALS: BP 130/62
[2016-06-27] MEDS: Vancomycin 1 GM in D5W 275 ML IVPB SCH ×2 (04:00→17:32)
[2016-06-27] MEDS: Metoprolol 5mg/5ml Inj IVP SCH ×4 (04:32→22:39)
[2016-06-27] MEDS: Acetaminophen 650 MG SUPP RECTAL PRN (05:17)
[2016-06-27] MEDS: NovoLOG Insulin Flexpen SUBQ SCH ×4 (06:30→20:46)
[2016-06-27 08:15] VITALS: BP 108/64
[2016-06-27] MEDS: Fluconazole 100mg tab ORAL SCH (09:00)
[2016-06-27] MEDS: Docusate 100mg cap ORAL SCH ×2 (09:00→18:00)
[2016-06-27] MEDS: Levemir Flexpen SUBQ SCH ×2 (09:00→20:45)
[2016-06-27] MEDS: Lisinopril 20mg tab ORAL SCH (09:00)
[2016-06-27] MEDS ORDERED: Meropenem 500 MG in NS 55 ML IVPB SCH (09:00)
--- NOTE | 2016-06-27 09:53 | General Progress Note ---
Assessment/Plan Problem List: (1) Metabolic acidosis ICD Codes: E87.2 - Acidosis SNOMED: 50682763 (2) Ischemia of foot ICD Codes: I99.8 - Other disorder of circulatory system SNOMED: 419286510, 354526786 (3) Chronic kidney disease ICD Codes: N18.9 - Chronic kidney disease, unspecified SNOMED: 817617870 Qualifiers: Qualified Codes: N18.9 - Chronic kidney disease, unspecified (4) Anemia, chronic disease ICD Codes: D63.8 - Anemia in other chronic diseases classified elsewhere SNOMED: 087509722 (5) Encephalopathy ICD Codes: G93.40 - Encephalopathy, unspecified SNOMED: 75884011, 147464380 (6) Rhabdomyolysis ICD Codes: M62.82 - Rhabdomyolysis SNOMED: 952695229 (7) Sepsis ICD Codes: A41.9 - Sepsis, unspecified organism SNOMED: 00077854 Qualifiers: Qualified Codes: A41.9 - Sepsis, unspecified organism Status: stable Assessment/Plan iv abx follow up cultures tylenol for fevers check swallow ivf pain rx monitor labs Subjective ROS Limited/Unobtainable: Yes Constitutional: Reports: fever, malaise HEENT: Reports: no symptoms Cardiovascular: Reports: no symptoms Respiratory: Reports: no symptoms Gastrointestinal/Abdominal: Reports: no symptoms Genitourinary: Reports: no symptoms Neurologic/Psychiatric: Reports: pre-existing deficit Endocrine: Reports: no symptoms Hematologic/Lymphatic: Reports: anemia Allergies: Coded Allergies: No Known Allergies (Unverified , 05/30/16) All Systems: reviewed and negative except above Subjective s/p transmetatarsal amputation- bilateral. afterwards. more somnolent, tachycardic and febrile. now alert. still confused. Objective Last 24 Hour Vital Signs Date Time Temp Pulse Resp B/P Pulse Ox O2 Delivery O2 Flow Rate FiO2 06/27/16 08:15 99.0 127 20 108/64 96 Nasal Cannula 4.0 06/27/16 05:47 102.1 06/27/16 04:32 157 128/72 06/27/16 04:00 102.2 137 20 130/62 93 Nasal Cannula 3.0 06/27/16 00:24 101.7 157 24 114/59 92 Nasal Cannula 2.0 06/26/16 20:12 101.8 149 24 141/80 97 Nasal Cannula 2.0 06/26/16 16:30 100.8 146 22 152/91 97 Nasal Cannula 2.0 06/26/16 16:00 101.7 100 20 164/98 100 Nasal Cannula 2.0 06/26/16 14:37 97.9 135 21 148/90 98 Nasal Cannula 2.0 06/26/16 13:53 98.2 125 21 150/87 97 Room Air 06/26/16 12:19 97.0 06/26/16 11:59 97.2 130 22 161/93 98 Nasal Cannula 3.0 06/26/16 11:45 131 18 157/91 98 Nasal Cannula 3.0 06/26/16 11:37 124 20 151/100 100 Simple Mask 8.0 06/26/16 11:20 124 20 162/97 100 Simple Mask 8.0 06/26/16 11:10 126 20 154/112 100 Simple Mask 8.0 06/26/16 11:08 110 18 100 06/26/16 11:05 125 20 162/104 100 Simple Mask 8.0 06/26/16 10:59 97.0 122 20 157/108 100 Simple Mask 8.0 Intake and Output 06/26/16 06/27/16 19:00 07:00 Intake Total 900 ml 180 ml Output Total 265 ml 1370 ml Balance 635 ml -1190 ml IV Total 900 ml 180 ml Output Urine Total 250 ml 1325 ml Drainage Total 45 ml Estimated Blood Loss 15 ml Laboratory Tests 06/26/16 20:20: Arterial Blood pH 7.508H, Arterial Blood Partial Pressure CO2 29.3L, Arterial Blood Partial Pressure O2 79.7, Arterial Blood HCO3 22.8, Arterial Blood Oxygen Saturation 95.8, Arterial Blood Base Excess 0.3, Tommy Test Positive Height (Feet): 5 Height (Inches): 8.00 Weight (Pounds): 150 Objective gangrene fingers right hand bilteral feet dressed DARYN JEREZ Jun 27, 2016 09:53
--- NOTE | 2016-06-27 10:28 | 48 Hour Post Anesthesia Eval ---
Post Anesthesia Evaluation Procedure: B/L transmetarsal amputation Date of Evaluation: Jun 27, 2016 Time of Evaluation: 12:05 Blood Pressure Systolic: 108 0: 64 Pulse Rate: 127 Respiratory Rate: 20 Temperature (Fahrenheit): 99.0 O2 Sat by Pulse Oximetry: 96 Airway: patent Nausea: No Vomiting: No Hydration Status: adequate Cardiopulmonary Status: Tachycardic. Patient transferred to telemetry. Mental Status/LOC: other - Patient transferred to telemetry Follow-up Care/Observations: As per surgery Post-Anesthesia Complications: No anesthetic complication Follow-up care needed: N/A VIVI CHING M.D. Jun 27, 2016 10:28
[2016-06-27] MEDS: Potassium Chloride 30 MEQ in 1/2 NS 1000ml 1,000 ML IV SCH (10:57)
[2016-06-27 11:01] LABS: BASOPHILS % (AUTO) 1.3 % (0.0-2.0); EOSINOPHILS % (AUTO) 0.7 % (0.0-3.0); LYMPHOCYTES % (AUTO) 11.6 % (20.0-45.0); MEAN CORPUSCULAR HEMOGLOBIN 24.3 PG (27.0-31.0); MEAN CORPUSCULAR HGB CONC 30.9 G/DL (32.0-36.0); MEAN CORPUSCULAR VOLUME 79 FL (80-99); MEAN PLATELET VOLUME 7.8 FL (6.5-10.1); MONOCYTES % (AUTO) 6.1 % (1.0-10.0); NEUTROPHILS % (AUTO) 80.4 % (45.0-75.0); PLATELET COUNT 236 K/UL (150-450); RED BLOOD COUNT 3.28 M/UL (4.70-6.10); RED CELL DISTRIBUTION WIDTH 18.8 % (11.6-14.8); WHITE BLOOD COUNT 7.2 K/UL (4.8-10.8)
--- NOTE | 2016-06-27 11:10 | Infectious Diseases Prog Note ---
Assessment/Plan Assessment/Plan antibiotics : vancomycin iv, zosyn, fluconazole A 1. 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 renal failure improving 3. MRSA sepsis recently 4. DM 5. fever P 1. continue vancomycin iv, fluconazole 2. d/c zosyn 3. start meropenem 4. will follow up cultures 5. blood cultures 6. UA and urine culture 7. CXR Subjective ROS Limited/Unobtainable: Yes Allergies: Coded Allergies: No Known Allergies (Unverified , 05/30/16) Objective Vital Signs Last 24 Hour Vital Signs Date Time Temp Pulse Resp B/P Pulse Ox O2 Delivery O2 Flow Rate FiO2 06/27/16 10:50 130 114/66 06/27/16 10:28 127 20 96 06/27/16 08:15 99.0 127 20 108/64 96 Nasal Cannula 4.0 06/27/16 05:47 102.1 06/27/16 04:32 157 128/72 06/27/16 04:00 102.2 137 20 130/62 93 Nasal Cannula 3.0 06/27/16 00:24 101.7 157 24 114/59 92 Nasal Cannula 2.0 06/26/16 20:12 101.8 149 24 141/80 97 Nasal Cannula 2.0 06/26/16 16:30 100.8 146 22 152/91 97 Nasal Cannula 2.0 06/26/16 16:00 101.7 100 20 164/98 100 Nasal Cannula 2.0 06/26/16 14:37 97.9 135 21 148/90 98 Nasal Cannula 2.0 06/26/16 13:53 98.2 125 21 150/87 97 Room Air 06/26/16 12:19 97.0 06/26/16 11:59 97.2 130 22 161/93 98 Nasal Cannula 3.0 06/26/16 11:45 131 18 157/91 98 Nasal Cannula 3.0 06/26/16 11:37 124 20 151/100 100 Simple Mask 8.0 06/26/16 11:20 124 20 162/97 100 Simple Mask 8.0 06/26/16 11:10 126 20 154/112 100 Simple Mask 8.0 Height (Feet): 5 Height (Inches): 8.00 Weight (Pounds): 150 Respiratory/Chest: lungs clear Cardiovascular: normal rate, regular rhythm, no gallop/murmur Abdomen: soft, non tender Extremities: other - + edema, both stumps in bandages ANGELO drains, right fingers necrotic Laboratory Tests Test 06/26/16 20:20 06/27/16 10:30 Arterial Blood pH 7.508 (7.350-7.450) Arterial Blood Partial Pressure CO2 29.3 mmHg (35.0-45.0) L Arterial Blood Partial Pressure O2 79.7 mmHg (75.0-100.0) Arterial Blood HCO3 22.8 mmol/L (22.0-26.0) Arterial Blood Oxygen Saturation 95.8 % (92.0-98.0) Arterial Blood Base Excess 0.3 Tommy Test Positive White Blood Count 7.2 K/UL (4.8-10.8) Red Blood Count 3.28 M/UL (4.70-6.10) L Hemoglobin 8.0 G/DL (14.2-18.0) L Hematocrit 25.7 % (42.0-52.0) L Mean Corpuscular Volume 79 FL (80-99) L Mean Corpuscular Hemoglobin 24.3 PG (27.0-31.0) L Mean Corpuscular Hemoglobin Concent 30.9 G/DL (32.0-36.0) L Red Cell Distribution Width 18.8 % (11.6-14.8) H Platelet Count 236 K/UL (150-450) Mean Platelet Volume 7.8 FL (6.5-10.1) Neutrophils (%) (Auto) 80.4 % (45.0-75.0) H Lymphocytes (%) (Auto) 11.6 % (20.0-45.0) L Monocytes (%) (Auto) 6.1 % (1.0-10.0) Eosinophils (%) (Auto) 0.7 % (0.0-3.0) Basophils (%) (Auto) 1.3 % (0.0-2.0) Sodium Level Pending Potassium Level Pending Chloride Level Pending Carbon Dioxide Level Pending Blood Urea Nitrogen Pending Creatinine Pending Estimat Glomerular Filtration Rate Pending Glucose Level Pending Calcium Level Pending Magnesium Level Pending Total Bilirubin Pending Aspartate Amino Transf (AST/SGOT) Pending Alanine Aminotransferase (ALT/SGPT) Pending Alkaline Phosphatase Pending Total Protein Pending Albumin Pending Globulin Pending COLTON GONZALEZ Jun 27, 2016 11:10
[2016-06-27 11:21] LABS: ALANINE AMINOTRANSFERASE 23 U/L (3-41); ALBUMIN/GLOBULIN RATIO 0.4 (1.0-2.7); ANION GAP 14 (5-15); ASPARTATE AMINO TRANSFERASE 29 U/L (5-40); CALCIUM 8.2 mg/dL (8.6-10.2); CARBON DIOXIDE 21 mEQ/L (20-30); CHLORIDE 102 mEQ/L (98-107); CREATININE 0.8 mg/dL (0.7-1.2); GLOMERULAR FILTRATION RATE > 60 mL/min (>60); HEMOLYSIS 0; MAGNESIUM 1.4 mg/dL (1.7-2.5); SODIUM 137 mEQ/L (135-145); TOTAL PROTEIN 6.7 g/dL (6.6-8.7)
[2016-06-27 11:48] VITALS: BP 114/66
--- NOTE | 2016-06-27 12:34 | Diagnostic Imaging Report ---
Indication: Chest pain, status post nasogastric intubation Technique: One view of the chest Comparison: 06/22/2016 Findings: Interim nasogastric intubation, nasogastric tube tip projecting beyond the edge of the image. There are new patchy parenchymal opacities in the left mid and lower lung. Bilateral pleural spaces are lung remain clear. Impression: Satisfactory nasogastric intubation New patchy parenchymal opacities in the left mid to lower lung, may reflect infiltrates
[2016-06-27 12:38] LABS: APPEARANCE,URINE CLEAR; KETONES,URINE NEGATIVE (NEGATIVE); LEUKOCYTE ESTERASE ,URINE NEGATIVE (NEGATIVE); NITRITE,URINE NEGATIVE (NEGATIVE); PH,URINE 5 (4.5-8.0); PROTEIN,URINE 2+ (NEGATIVE); UROBILINOGEN,URINE 1 MG/DL (0.0-1.0)
[2016-06-27 12:59] LABS: BACTERIA,URINE FEW /HPF; MUCUS,URINE FEW /LPF (NONE/OCC); SQUAMOUS EPITHELIAL CELL,UR OCCASIONAL /LPF (NONE/OCC); WBC,URINE 0-2 /HPF (0 - 0)
[2016-06-27] MEDS: Meropenem 500 MG in NS 55 ML IVPB SCH ×2 (14:49→21:53)
--- NOTE | 2016-06-27 15:38 | Diagnostic Imaging Report ---
Indication: Post replacement of nasogastric tube Technique: Supine view of the abdomen Comparison: 06/18/2016 Findings: There is a nasogastric tube in place, tip of which projects at the level of the gastric antrum. Bowel gas pattern is unremarkable. There is an inferior vena cava filter in place. Impression: Satisfactory nasogastric intubation Other findings as noted
[2016-06-27 16:00] VITALS: BP 113/76
--- NOTE | 2016-06-27 16:17 | Podiatric Progress Note ---
Assessment/Plan Patient Shoaib De Anda is a 56 year old male who was admitted on Jun 22, 2016 at 03:48 with sepsis Problems: (1) Ischemia of extremity (2) Foot ulcer, left Assessment/Plan - Patient is one day status post bilateral foot TMA. Dressings are clean, dry, and in tact. Continue to check drainage output and empty as necessary. Will pull drain when less than 5cc in 24 hours. Skin raysa will be removed 2-3 weeks after surgery. Subjective Day of Surgery: 06/26/16 Procedure Performed Bilateral foot transmetatarsal amputation Allergies: Coded Allergies: No Known Allergies (Unverified , 05/30/16) Subjective Patient is unable to communicate effectively Objective Exam Last 24 Hour Vital Signs Date Time Temp Pulse Resp B/P Pulse Ox O2 Delivery O2 Flow Rate FiO2 06/27/16 12:03 121 06/27/16 11:48 99.9 118 20 114/66 95 Nasal Cannula 4.0 06/27/16 10:50 130 114/66 06/27/16 10:28 127 20 96 06/27/16 08:15 99.0 127 20 108/64 96 Nasal Cannula 4.0 06/27/16 07:34 127 06/27/16 05:47 102.1 06/27/16 04:32 157 128/72 06/27/16 04:00 102.2 137 20 130/62 93 Nasal Cannula 3.0 06/27/16 00:24 101.7 157 24 114/59 92 Nasal Cannula 2.0 06/26/16 20:12 101.8 149 24 141/80 97 Nasal Cannula 2.0 06/26/16 16:30 100.8 146 22 152/91 97 Nasal Cannula 2.0 Laboratory Tests Test 06/26/16 20:20 06/27/16 10:30 06/27/16 12:25 Arterial Blood pH 7.508 (7.350-7.450) Arterial Blood Partial Pressure CO2 29.3 mmHg (35.0-45.0) L Arterial Blood Partial Pressure O2 79.7 mmHg (75.0-100.0) Arterial Blood HCO3 22.8 mmol/L (22.0-26.0) Arterial Blood Oxygen Saturation 95.8 % (92.0-98.0) Arterial Blood Base Excess 0.3 Tommy Test Positive White Blood Count 7.2 K/UL (4.8-10.8) Red Blood Count 3.28 M/UL (4.70-6.10) L Hemoglobin 8.0 G/DL (14.2-18.0) L Hematocrit 25.7 % (42.0-52.0) L Mean Corpuscular Volume 79 FL (80-99) L Mean Corpuscular Hemoglobin 24.3 PG (27.0-31.0) L Mean Corpuscular Hemoglobin Concent 30.9 G/DL (32.0-36.0) L Red Cell Distribution Width 18.8 % (11.6-14.8) H Platelet Count 236 K/UL (150-450) Mean Platelet Volume 7.8 FL (6.5-10.1) Neutrophils (%) (Auto) 80.4 % (45.0-75.0) H Lymphocytes (%) (Auto) 11.6 % (20.0-45.0) L Monocytes (%) (Auto) 6.1 % (1.0-10.0) Eosinophils (%) (Auto) 0.7 % (0.0-3.0) Basophils (%) (Auto) 1.3 % (0.0-2.0) Sodium Level 137 mEQ/L (135-145) Potassium Level 4.0 mEQ/L (3.4-4.9) Chloride Level 102 mEQ/L (98-107) Carbon Dioxide Level 21 mEQ/L (20-30) Anion Gap 14 (5-15) Blood Urea Nitrogen 9 mg/dL (7-23) Creatinine 0.8 mg/dL (0.7-1.2) Estimat Glomerular Filtration Rate > 60 mL/min (>60) Glucose Level 135 mg/dL (74-106) H Calcium Level 8.2 mg/dL (8.6-10.2) L Magnesium Level 1.4 mg/dL (1.7-2.5) L Total Bilirubin 0.5 mg/dL (0.0-1.2) Aspartate Amino Transf (AST/SGOT) 29 U/L (5-40) Alanine Aminotransferase (ALT/SGPT) 23 U/L (3-41) Alkaline Phosphatase 132 U/L (40-129) H Total Protein 6.7 g/dL (6.6-8.7) Albumin 2.2 g/dL (3.5-5.2) L Globulin 4.5 g/dL Albumin/Globulin Ratio 0.4 (1.0-2.7) L Urine Color Yellow Urine Appearance Clear Urine pH 5 (4.5-8.0) Urine Specific [place] 1.015 (1.005-1.035) Urine Protein 2+ (NEGATIVE) H Urine Glucose (UA) 1+ (NEGATIVE) H Urine Ketones Negative (NEGATIVE) Urine Occult Blood 2+ (NEGATIVE) H Urine Nitrite Negative (NEGATIVE) Urine Bilirubin Negative (NEGATIVE) Urine Urobilinogen 1 MG/DL (0.0-1.0) H Urine Leukocyte Esterase Negative (NEGATIVE) Urine RBC 2-4 /HPF (0 - 0) H Urine WBC 0-2 /HPF (0 - 0) Urine Squamous Epithelial Cells Occasional /LPF Urine Bacteria Few /HPF (NONE) Urine Mucus Few /LPF (NONE/OCC) H Microbiology Date/Time Source Procedure Growth Status 06/22/16 02:05 Blood Blood Culture - Final NO GROWTH AFTER 5 DAYS Complete 06/22/16 04:54 Nasal Nares MRSA Culture - Final Staphylococcus Aureus - Mrsa Complete 06/22/16 01:53 Urine,Clean Catch Urine Culture - Final Eboni Albicans Complete 06/22/16 14:30 Foot Left Gram Stain - Final Complete 06/22/16 14:30 Wound Culture - Final Enterococcus Faecalis Complete Exam Narrative Dressings are clean, dry, and in tact ANGELO drain 1: 40cc 06/26/16, 5cc 06/27/16 ANGELO drain 2: 5cc 06/26/16, 2cc 06/27/16 Lang Klein DPM Jun 27, 2016 16:17
[2016-06-27 20:00] VITALS: BP 105/55
[2016-06-28] VITALS: BP 113/68
[2016-06-28] MEDS: Potassium Chloride 30 MEQ in 1/2 NS 1000ml 1,000 ML IV SCH ×2 (03:37→21:46)
[2016-06-28 04:00] VITALS: BP_SYST 123; BP_SYST 143; BP_DIAS 64; BP_DIAS 72
[2016-06-28] MEDS: Vancomycin 1 GM in D5W 275 ML IVPB SCH ×2 (04:05→17:05)
[2016-06-28] MEDS: Acetaminophen 650mg/20.3ml NG PRN ×2 (04:05→17:23)
[2016-06-28] MEDS: Metoprolol 5mg/5ml Inj IVP SCH ×4 (04:43→22:32)
[2016-06-28] MEDS: NovoLOG Insulin Flexpen SUBQ SCH ×4 (06:18→21:00)
[2016-06-28] MEDS: Meropenem 500 MG in NS 55 ML IVPB SCH ×3 (06:19→21:47)
--- NOTE | 2016-06-28 07:18 | Progress Note ---
DATE: 06/27/2016 CARDIOLOGY PROGRESS NOTE SUBJECTIVE: The patient's condition was unstable last night following surgery. He has persistent fever spikes above 102 and tachyarrhythmias. Blood pressure was labile. The patient was continued on IV antibiotics, fluid boluses were given, and his beta-michelle dose was changed to intravenous infusion. Intravenous morphine for pain control was administered. OBJECTIVE: VITAL SIGNS: Blood pressure 108/64, pulse 127, respiratory rate 20, and T-max 102.2. LUNGS: Bilateral breath sounds with no wheezing. HEART: Regular rhythm. Rapid rate. Normal S1, S2 with no murmur. ABDOMEN: Soft and nontender. EXTREMITIES: Trace edema. Amputation sites are dry and dressing intact. LABORATORY DATA: White count 7.2, hemoglobin 8. Potassium 4, BUN 9, and creatinine 0.8. Magnesium 1.4. IMPRESSION: 1. Status post bilateral transmetatarsal amputation. 2. Diabetes mellitus with recent diabetic ketoacidosis. 3. Postoperative fever. 4. Secondary sinus tachycardia. 5. Postoperative pain. 6. Hypomagnesemia. 7. Anemia of chronic disease with possible component of acute blood loss exacerbation. PLAN: 1. Antibiotics. 2. Pain control. 3. Hydration. 4. Antipyretics. 5. Intravenous magnesium. 6. DVT prophylaxis. 7. Insulin coverage by sliding scale. 8. Possible need for packed red blood cell transfusion if hemoglobin drops further. Morales Serrano M.D. DR: DOYLE JOB#: [id number] CC:
[2016-06-28 08:28] VITALS: BP 108/47
--- NOTE | 2016-06-28 08:29 | General Progress Note ---
Assessment/Plan Problem List: (1) Metabolic acidosis ICD Codes: E87.2 - Acidosis SNOMED: 25008222 (2) Ischemia of foot ICD Codes: I99.8 - Other disorder of circulatory system SNOMED: 968358566, 923305451 (3) Chronic kidney disease ICD Codes: N18.9 - Chronic kidney disease, unspecified SNOMED: 620668033 Qualifiers: Qualified Codes: N18.9 - Chronic kidney disease, unspecified (4) Anemia, chronic disease ICD Codes: D63.8 - Anemia in other chronic diseases classified elsewhere SNOMED: 271034124 (5) Encephalopathy ICD Codes: G93.40 - Encephalopathy, unspecified SNOMED: 53964005, 062365385 (6) Rhabdomyolysis ICD Codes: M62.82 - Rhabdomyolysis SNOMED: 564507373 (7) Sepsis ICD Codes: A41.9 - Sepsis, unspecified organism SNOMED: 55163983 Qualifiers: Qualified Codes: A41.9 - Sepsis, unspecified organism Status: stable Assessment/Plan iv abx follow up cultures tylenol for fevers ngt feeds ivf pain rx monitor labs epo/iron rx Subjective ROS Limited/Unobtainable: Yes Constitutional: Reports: malaise, weakness HEENT: Reports: no symptoms Cardiovascular: Reports: no symptoms Respiratory: Reports: no symptoms Gastrointestinal/Abdominal: Reports: no symptoms Genitourinary: Reports: no symptoms Neurologic/Psychiatric: Reports: pre-existing deficit Endocrine: Reports: no symptoms Hematologic/Lymphatic: Reports: anemia Allergies: Coded Allergies: No Known Allergies (Unverified , 05/30/16) All Systems: reviewed and negative except above Subjective s/p transmetatarsal amputation- bilateral. afterwards. more somnolent, tachycardic and febrile. slightly more alert. failed swallow eval. ngt in place. Objective Last 24 Hour Vital Signs Date Time Temp Pulse Resp B/P Pulse Ox O2 Delivery O2 Flow Rate FiO2 06/28/16 04:43 121 134/77 06/28/16 04:35 99.1 06/28/16 04:00 100.5 124 16 123/72 97 Room Air 06/28/16 04:00 121 06/28/16 00:00 109 06/28/16 00:00 99.0 104 20 113/68 98 Nasal Cannula 2.0 06/27/16 22:39 117 105/55 06/27/16 20:00 117 06/27/16 20:00 99.3 116 20 105/55 Nasal Cannula 2.0 95 06/27/16 17:36 136 114/66 06/27/16 16:00 136 06/27/16 16:00 100.6 136 20 113/76 Nasal Cannula 2.0 88 06/27/16 12:03 121 06/27/16 11:48 99.9 118 20 114/66 95 Nasal Cannula 4.0 06/27/16 10:50 130 114/66 06/27/16 10:28 127 20 96 Intake and Output 06/27/16 06/28/16 19:00 07:00 Intake Total 655 ml 846.7 ml Output Total 307 ml 1700 ml Balance 348 ml -853.3 ml IV Total 655 ml 846.7 ml Output Urine Total 300 ml 1700 ml Drainage Total 7 ml Laboratory Tests 06/27/16 10:30: White Blood Count 7.2, Red Blood Count 3.28L, Hemoglobin 8.0L, Hematocrit 25.7L , Mean Corpuscular Volume 79L, Mean Corpuscular Hemoglobin 24.3L, Mean Corpuscular Hemoglobin Concent 30.9L, Red Cell Distribution Width 18.8H, Platelet Count 236, Mean Platelet Volume 7.8, Neutrophils (%) (Auto) 80.4H, Lymphocytes (%) (Auto) 11.6L, Monocytes (%) (Auto) 6.1, Eosinophils (%) (Auto) 0.7, Basophils (%) (Auto) 1.3, Sodium Level 137, Potassium Level 4.0, Chloride Level 102, Carbon Dioxide Level 21, Anion Gap 14, Blood Urea Nitrogen 9, Creatinine 0.8, Estimat Glomerular Filtration Rate > 60, Glucose Level 135H, Calcium Level 8.2L, Magnesium Level 1.4L, Total Bilirubin 0.5, Aspartate Amino Transf (AST/SGOT) 29, Alanine Aminotransferase (ALT/SGPT) 23, Alkaline Phosphatase 132H, Total Protein 6.7, Albumin 2.2L, Globulin 4.5, Albumin/ Globulin Ratio 0.4L 06/27/16 12:25: Urine Color Yellow, Urine Appearance Clear, Urine pH 5, Urine Specific [place] 1.015, Urine Protein 2+H, Urine Glucose (UA) 1+H, Urine Ketones Negative, Urine Occult Blood 2+H, Urine Nitrite Negative, Urine Bilirubin Negative, Urine Urobilinogen 1H, Urine Leukocyte Esterase Negative, Urine RBC 2-4H, Urine WBC 0- 2, Urine Squamous Epithelial Cells Occasional, Urine Bacteria Few, Urine Mucus FewH Height (Feet): 5 Height (Inches): 8.00 Weight (Pounds): 150 General Appearance: WD/WN, lethargic, confused Neck: supple Cardiovascular: regular rhythm Respiratory/Chest: lungs clear Abdomen: normal bowel sounds, non tender, soft, no organomegaly, no mass Edema: no edema noted Arm (L), no edema noted Arm (R), no edema noted Leg (L), no edema noted Leg (R), no edema noted Pedal (L), no edema noted Pedal (R), no edema noted Generalized Neurologic: disoriented Objective gangrene fingers right hand bilteral feet dressed DARYN JEREZ Jun 28, 2016 08:29
[2016-06-28] MEDS: Levemir Flexpen SUBQ SCH ×2 (09:00→21:46)
[2016-06-28] MEDS: Docusate 100mg cap ORAL SCH ×2 (09:34→18:51)
[2016-06-28] MEDS: Lisinopril 20mg tab ORAL SCH (09:34)
[2016-06-28] MEDS: Fluconazole 100mg tab ORAL SCH (09:35)
[2016-06-28] MEDS: levETIRAcetam 500 MG in D5W 110 ML IVPB SCH ×2 (09:35→21:46)
[2016-06-28 09:44] LABS: MEAN CORPUSCULAR HEMOGLOBIN 24.3 PG (27.0-31.0); MEAN CORPUSCULAR HGB CONC 31.3 G/DL (32.0-36.0); MEAN CORPUSCULAR VOLUME 78 FL (80-99); MEAN PLATELET VOLUME 6.1 FL (6.5-10.1); PLATELET COUNT 238 K/UL (150-450); RED BLOOD COUNT 3.07 M/UL (4.70-6.10); RED CELL DISTRIBUTION WIDTH 18.6 % (11.6-14.8); WHITE BLOOD COUNT 7.1 K/UL (4.8-10.8)
[2016-06-28 10:05] LABS: ALANINE AMINOTRANSFERASE 25 U/L (3-41); ALBUMIN/GLOBULIN RATIO 0.5 (1.0-2.7); ANION GAP 13 (5-15); ASPARTATE AMINO TRANSFERASE 41 U/L (5-40); CALCIUM 8.5 mg/dL (8.6-10.2); CARBON DIOXIDE 24 mEQ/L (20-30); CHLORIDE 102 mEQ/L (98-107); CREATININE 0.7 mg/dL (0.7-1.2); GLOMERULAR FILTRATION RATE > 60 mL/min (>60); HEMOLYSIS 0; POTASSIUM 3.5 mEQ/L (3.4-4.9); SODIUM 139 mEQ/L (135-145); TOTAL PROTEIN 6.7 g/dL (6.6-8.7)
[2016-06-28 10:15] LABS: BAND NEUTROPHILS % (MANUAL) 9 % (0-8); BASOPHILS % (MANUAL) 0 % (0-2); EOSINOPHILS % (MANUAL) 0 % (0-3); LYMPHOCYTES % (MANUAL) 6 % (20-45); NEUTROPHILS % (MANUAL) 82 % (45-75); PLATELET ESTIMATE ADEQUATE; PLATELET MORPHOLOGY NORMAL; TOTAL CELLS COUNTED 100
[2016-06-28 10:16] LABS: ANISOCYTOSIS 2+; MICROCYTES 1+
[2016-06-28 10:18] LABS: HYPOCHROMASIA 2+
--- NOTE | 2016-06-28 11:10 | Infectious Diseases Prog Note ---
Assessment/Plan Assessment/Plan A 1. bilateral feet and right fingers gangrene 2. renal failure improving 3. MRSA sepsis recently 4. DM 5. Pneumonia 6. Post operative fever 7. s/p bilateral transmetatarsal amputation P 1. continue Meropenem & Vancomycin 2. will f/u cultures Subjective ROS Limited/Unobtainable: Yes Respiratory: Reports: dry cough Neurologic: Reports: confusion, other - on restraint Allergies: Coded Allergies: No Known Allergies (Unverified , 05/30/16) Objective Vital Signs Last 24 Hour Vital Signs Date Time Temp Pulse Resp B/P Pulse Ox O2 Delivery O2 Flow Rate FiO2 06/28/16 09:34 110/47 06/28/16 08:28 99.5 103 20 108/47 96 Nasal Cannula 4.0 06/28/16 07:56 104 06/28/16 04:43 121 134/77 06/28/16 04:35 99.1 06/28/16 04:00 100.5 124 16 123/72 97 Room Air 06/28/16 04:00 121 06/28/16 00:00 109 06/28/16 00:00 99.0 104 20 113/68 98 Nasal Cannula 2.0 06/27/16 22:39 117 105/55 06/27/16 20:00 117 06/27/16 20:00 99.3 116 20 105/55 Nasal Cannula 2.0 95 06/27/16 17:36 136 114/66 06/27/16 16:00 136 06/27/16 16:00 100.6 136 20 113/76 Nasal Cannula 2.0 88 06/27/16 12:03 121 06/27/16 11:48 99.9 118 20 114/66 95 Nasal Cannula 4.0 Height (Feet): 5 Height (Inches): 8.00 Weight (Pounds): 150 General Appearance: no acute distress HEENT: mucous membranes moist Respiratory/Chest: lungs clear Cardiovascular: normal rate Abdomen: soft, non tender, other - NG tube Extremities: other - B/L feet dressing,dry gangrene of right fingers Neurologic/Psychiatric: disoriented Microbiology Date/Time Source Procedure Growth Status 06/27/16 12:25 Indwelling Cath Urine Culture - Preliminary NO GROWTH Resulted Laboratory Tests Test 06/27/16 12:25 06/28/16 09:30 Urine Color Yellow Urine Appearance Clear Urine pH 5 (4.5-8.0) Urine Specific [place] 1.015 (1.005-1.035) Urine Protein 2+ (NEGATIVE) H Urine Glucose (UA) 1+ (NEGATIVE) H Urine Ketones Negative (NEGATIVE) Urine Occult Blood 2+ (NEGATIVE) H Urine Nitrite Negative (NEGATIVE) Urine Bilirubin Negative (NEGATIVE) Urine Urobilinogen 1 MG/DL (0.0-1.0) H Urine Leukocyte Esterase Negative (NEGATIVE) Urine RBC 2-4 /HPF (0 - 0) H Urine WBC 0-2 /HPF (0 - 0) Urine Squamous Epithelial Cells Occasional /LPF Urine Bacteria Few /HPF (NONE) Urine Mucus Few /LPF (NONE/OCC) H White Blood Count 7.1 K/UL (4.8-10.8) Red Blood Count 3.07 M/UL (4.70-6.10) L Hemoglobin 7.5 G/DL (14.2-18.0) L Hematocrit 23.9 % (42.0-52.0) L Mean Corpuscular Volume 78 FL (80-99) L Mean Corpuscular Hemoglobin 24.3 PG (27.0-31.0) L Mean Corpuscular Hemoglobin Concent 31.3 G/DL (32.0-36.0) L Red Cell Distribution Width 18.6 % (11.6-14.8) H Platelet Count 238 K/UL (150-450) Mean Platelet Volume 6.1 FL (6.5-10.1) L Neutrophils (%) (Auto) % (45.0-75.0) Lymphocytes (%) (Auto) % (20.0-45.0) Monocytes (%) (Auto) % (1.0-10.0) Eosinophils (%) (Auto) % (0.0-3.0) Basophils (%) (Auto) % (0.0-2.0) Differential Total Cells Counted 100 Neutrophils % (Manual) 82 % (45-75) H Lymphocytes % (Manual) 6 % (20-45) L Monocytes % (Manual) 3 % (1-10) Eosinophils % (Manual) 0 % (0-3) Basophils % (Manual) 0 % (0-2) Band Neutrophils 9 % (0-8) H Platelet Estimate Adequate Platelet Morphology Normal Hypochromasia 2+ Anisocytosis 2+ Microcytosis 1+ Sodium Level 139 mEQ/L (135-145) Potassium Level 3.5 mEQ/L (3.4-4.9) Chloride Level 102 mEQ/L (98-107) Carbon Dioxide Level 24 mEQ/L (20-30) Anion Gap 13 (5-15) Blood Urea Nitrogen 9 mg/dL (7-23) Creatinine 0.7 mg/dL (0.7-1.2) Estimat Glomerular Filtration Rate > 60 mL/min (>60) Glucose Level 79 mg/dL (74-106) Calcium Level 8.5 mg/dL (8.6-10.2) L Total Bilirubin 0.4 mg/dL (0.0-1.2) Aspartate Amino Transf (AST/SGOT) 41 U/L (5-40) H Alanine Aminotransferase (ALT/SGPT) 25 U/L (3-41) Alkaline Phosphatase 136 U/L (40-129) H Total Protein 6.7 g/dL (6.6-8.7) Albumin 2.4 g/dL (3.5-5.2) L Globulin 4.3 g/dL Albumin/Globulin Ratio 0.5 (1.0-2.7) L Current Medications Medications (Trade) Dose Ordered Sig/Mateo Route PRN Reason Start Time Stop Time Status Last Admin Dose Admin Acetaminophen (Tylenol) 650 mg Q4H PRN ORAL Prn Headache/Temp > 101 06/26/16 17:30 07/26/16 17:29 Acetaminophen (Tylenol) 650 mg Q4H PRN RECTAL Mild Pain (Pain Scale 1-3) 06/26/16 17:30 07/26/16 17:29 06/27/16 05:17 Acetaminophen 650 mg 650 mg PRN PRN NG Mild Pain/Temp > 100.5 06/27/16 06:30 07/27/16 06:29 06/28/16 04:05 Ascorbic Acid (Vitamin C) 500 mg DAILY NG 06/28/16 11:00 07/28/16 10:59 Dextrose (Dextrose 50%) STAT PRN IV Hypoglycemia 06/26/16 20:30 07/26/16 20:29 Docusate Sodium (Colace) 100 mg TWICE A DAY ORAL 06/26/16 18:00 07/26/16 17:59 06/28/16 09:34 Epoetin Zia (Procrit (for ESRD on dialysis)) 10,000 units SUN-SUN-SUN SUBQ 06/26/16 21:00 07/26/16 20:59 06/26/16 22:37 Fluconazole (Diflucan) 100 mg DAILY ORAL 06/27/16 09:00 07/04/16 08:59 06/28/16 09:35 Insulin Aspart (NovoLOG) BEFORE MEALS AND HS SUBQ 06/26/16 21:00 07/26/16 20:59 06/28/16 06:18 Insulin Detemir (Levemir) 5 units Q12HR SUBQ 06/26/16 21:00 07/26/16 20:59 Levetiracetam/ Dextrose (Keppra/D5W) 115 ml @ 460 mls/hr Q12HR IVPB 06/27/16 01:30 07/27/16 01:29 06/28/16 09:35 Lisinopril (Prinivil) 20 mg DAILY ORAL 06/27/16 09:00 07/27/16 08:59 06/28/16 09:34 Meropenem/Sodium Chloride (Merrem/Sodium Chloride) 55 ml @ 110 mls/hr EVERY 8 HOURS IVPB 06/27/16 14:00 07/02/16 13:59 06/28/16 06:19 Metoprolol Tartrate (Lopressor) 10 mg Q6H IVP 06/27/16 04:30 07/27/16 04:29 06/28/16 04:43 Morphine Sulfate (Morphine Sulfate) 1 mg Q4H PRN IVP For Moderate to Severe Pain 06/26/16 19:30 07/03/16 19:29 06/27/16 22:40 Multivitamins (Multivitamin Hexavitamin) 5 ml DAILY NG 06/28/16 11:00 07/28/16 10:59 Potassium Chloride 30 meq/ Sodium Chloride 1,015 ml @ 60 mls/hr [id number] IV 06/26/16 17:30 07/26/16 17:29 06/28/16 03:37 Sennosides (Senokot) 8.6 mg DAILY ORAL 06/27/16 09:00 07/27/16 08:59 06/28/16 09:35 Vancomycin HCl 1 ea 1 ea DAILY PRN MISC PRN RX PROTOCOL 06/26/16 17:30 07/26/16 17:29 Vancomycin HCl/ Dextrose (Vancomycin/D5W) 275 ml @ 183.708 mls/hr Q12HR@0400,1600 IVPB 06/27/16 04:00 06/29/16 23:59 06/28/16 04:05 DE REILLY Jun 28, 2016 11:10
[2016-06-28 11:48] VITALS: BP 120/59
[2016-06-28] MEDS: Multivitamin 5ml Liquid NG SCH (12:00)
[2016-06-28] MEDS: Ascorbic Acid 500mg tab NG SCH (12:00)
[2016-06-28] MEDS ORDERED: Acetaminophen 650mg/20.3ml NG PRN (14:36)
[2016-06-28 16:00] VITALS: BP_SYST 122; BP_SYST 132; BP_DIAS 56; BP_DIAS 76
[2016-06-28 20:00] VITALS: BP 107/55
[2016-06-28] MEDS: Epogen (for ESRD on dialysis) SUBQ SCH (21:47)
[2016-06-29] VITALS: BP 125/75
[2016-06-29 04:00] VITALS: BP 120/76
[2016-06-29] MEDS: Acetaminophen 650mg/20.3ml NG PRN (04:22)
[2016-06-29] MEDS: Vancomycin 1 GM in D5W 275 ML IVPB SCH ×2 (04:22→18:42)
--- NOTE | 2016-06-29 04:27 | Progress Note ---
DATE: 06/28/2016 CARDIOLOGY PROGRESS NOTE SUBJECTIVE: The patient remains somnolent. Fevers have decreased. He continues to have episodes of tachycardia. He is on pain control, antipyretics and antibiotics. OBJECTIVE: VITAL SIGNS: Blood pressure 107/55, pulse 104, respirations 20, and temperature is 100.0 degrees. NECK: Supple. LUNGS: Clear. CARDIAC: Regular rhythm. Rapid rate. Normal S1 and S2. ABDOMEN: Soft. EXTREMITIES: No edema. Distal dressings are dry of the lower extremities. There is dry gangrene of the right finger persisting. LABORATORY DATA: White count 7.3 and hemoglobin 7.5. Potassium 3.5, BUN 9, and creatinine 0.7. Albumin is 2.4. IMPRESSION: 1. Status post bilateral transmetatarsal amputations. 2. Peripheral artery disease with gangrene. 3. Postoperative anemia. 4. Sinus tachycardia. 5. Sepsis. 6. Hypovolemia. PLAN: 1. Hydration. 2. Pain control. 3. Antibiotics per Infectious Disease construction safety consultant. 4. Nutrition by feeding tube. 5. No transfusions of blood products, since he is a [employer]. Morales Serrano M.D. DR: IGNACIO JOB#: [id number] CC: ESME
[2016-06-29] MEDS: Metoprolol 5mg/5ml Inj IVP SCH ×4 (05:50→23:24)
[2016-06-29] MEDS: Meropenem 500 MG in NS 55 ML IVPB SCH ×3 (05:55→21:45)
[2016-06-29] MEDS: NovoLOG Insulin Flexpen SUBQ SCH ×3 (06:24→17:45)
[2016-06-29 08:00] VITALS: BP 106/57
--- NOTE | 2016-06-29 08:51 | General Progress Note ---
Assessment/Plan Problem List: (1) Metabolic acidosis ICD Codes: E87.2 - Acidosis SNOMED: 89571532 (2) Ischemia of foot ICD Codes: I99.8 - Other disorder of circulatory system SNOMED: 397335471, 767377092 (3) Chronic kidney disease ICD Codes: N18.9 - Chronic kidney disease, unspecified SNOMED: 929184620 Qualifiers: Qualified Codes: N18.9 - Chronic kidney disease, unspecified (4) Anemia, chronic disease ICD Codes: D63.8 - Anemia in other chronic diseases classified elsewhere SNOMED: 065368035 (5) Encephalopathy ICD Codes: G93.40 - Encephalopathy, unspecified SNOMED: 96036153, 450518674 (6) Rhabdomyolysis ICD Codes: M62.82 - Rhabdomyolysis SNOMED: 602159530 (7) Sepsis ICD Codes: A41.9 - Sepsis, unspecified organism SNOMED: 92433831 Qualifiers: Qualified Codes: A41.9 - Sepsis, unspecified organism Status: stable, progressing Assessment/Plan iv abx per id follow up cultures tylenol for fevers ngt feeds ivf pain rx monitor labs epo/iron rx wound care per podiatry Subjective ROS Limited/Unobtainable: Yes Constitutional: Reports: malaise, weakness HEENT: Reports: no symptoms Cardiovascular: Reports: no symptoms Respiratory: Reports: cough Gastrointestinal/Abdominal: Reports: difficulty swallowing Genitourinary: Reports: no symptoms Neurologic/Psychiatric: Reports: pre-existing deficit Endocrine: Reports: no symptoms Hematologic/Lymphatic: Reports: anemia Allergies: Coded Allergies: No Known Allergies (Unverified , 05/30/16) All Systems: reviewed and negative except above Subjective s/p transmetatarsal amputation- bilateral. afterwards. more somnolent, tachycardic and febrile. temp and hr trending down. failed swallow eval. has ngt now. decrease h/h noted but pt is jehovah witness Objective Last 24 Hour Vital Signs Date Time Temp Pulse Resp B/P Pulse Ox O2 Delivery O2 Flow Rate FiO2 06/29/16 08:00 98.8 101 20 106/57 96 Room Air 06/29/16 05:50 106 122/72 06/29/16 04:19 104 06/29/16 04:00 99.7 103 18 120/76 96 06/29/16 00:00 99.0 101 20 125/75 100 Nasal Cannula 2.0 06/28/16 22:32 105 111/59 06/28/16 20:00 104 06/28/16 20:00 100.0 105 20 107/55 93 Room Air 06/28/16 18:24 118 122/56 06/28/16 17:53 99.3 06/28/16 16:00 103.3 118 20 122/56 Nasal Cannula 2.0 94 06/28/16 16:00 120 06/28/16 12:00 118 120/59 06/28/16 11:48 99.5 110 20 120/59 96 Nasal Cannula 4.0 06/28/16 09:34 110/47 Intake and Output 06/28/16 06/29/16 19:00 07:00 Intake Total 1063.708 ml 2317.416 ml Output Total 500 ml 1430 ml Balance 563.708 ml 887.416 ml Free Water 150 ml IV Total 1063.708 ml 1927.416 ml Tube Feeding 240 ml Output Urine Total 500 ml 1400 ml Drainage Total 30 ml # Bowel Movements 1 Laboratory Tests 06/28/16 09:30: White Blood Count 7.1, Red Blood Count 3.07L, Hemoglobin 7.5L, Hematocrit 23.9L , Mean Corpuscular Volume 78L, Mean Corpuscular Hemoglobin 24.3L, Mean Corpuscular Hemoglobin Concent 31.3L, Red Cell Distribution Width 18.6H, Platelet Count 238, Mean Platelet Volume 6.1L, Neutrophils (%) (Auto) , Lymphocytes (%) (Auto) , Monocytes (%) (Auto) , Eosinophils (%) (Auto) , Basophils (%) (Auto) , Differential Total Cells Counted 100, Neutrophils % ( Manual) 82H, Lymphocytes % (Manual) 6L, Monocytes % (Manual) 3, Eosinophils % ( Manual) 0, Basophils % (Manual) 0, Band Neutrophils 9H, Platelet Estimate Adequate, Platelet Morphology Normal, Hypochromasia 2+, Anisocytosis 2+, Microcytosis 1+, Sodium Level 139, Potassium Level 3.5, Chloride Level 102, Carbon Dioxide Level 24, Anion Gap 13, Blood Urea Nitrogen 9, Creatinine 0.7, Estimat Glomerular Filtration Rate > 60, Glucose Level 79, Calcium Level 8.5L, Total Bilirubin 0.4, Aspartate Amino Transf (AST/SGOT) 41H, Alanine Aminotransferase (ALT/SGPT) 25, Alkaline Phosphatase 136H, Total Protein 6.7, Albumin 2.4L, Globulin 4.3, Albumin/Globulin Ratio 0.5L 06/29/16 03:30: Random Vancomycin Level 15.5 Height (Feet): 5 Height (Inches): 8.00 Weight (Pounds): 150 General Appearance: WD/WN, alert, confused Neck: supple Cardiovascular: regular rhythm Respiratory/Chest: rhonchi - bilaterally Abdomen: normal bowel sounds, non tender, soft, no organomegaly Edema: no edema noted Arm (L), no edema noted Arm (R), no edema noted Leg (L), no edema noted Leg (R), no edema noted Pedal (L), no edema noted Pedal (R), no edema noted Generalized Neurologic: responsive, disoriented Objective gangrene fingers right hand bilteral feet dressed DARYN JEREZ Jun 29, 2016 08:51
[2016-06-29] MEDS: levETIRAcetam 500 MG in D5W 110 ML IVPB SCH ×2 (09:32→21:45)
[2016-06-29] MEDS: Fluconazole 100mg tab NG SCH (09:33)
[2016-06-29] MEDS: Ascorbic Acid 500mg tab NG SCH (09:33)
[2016-06-29] MEDS: Docusate 100mg cap ORAL SCH ×2 (09:33→17:34)
[2016-06-29] MEDS: Lisinopril 20mg tab ORAL SCH (09:33)
[2016-06-29] MEDS: Multivitamin 5ml Liquid NG SCH (09:35)
[2016-06-29] MEDS: Levemir Flexpen SUBQ SCH ×2 (09:35→17:39)
--- NOTE | 2016-06-29 09:47 | Infectious Diseases Prog Note ---
Assessment/Plan Assessment/Plan A 1. bilateral feet and right fingers gangrene 2. renal failure improving 3. MRSA sepsis recently 4. DM 5. Pneumonia 6. Post operative fever 7. s/p bilateral transmetatarsal amputation P 1. continue Meropenem & Vancomycin 2. will f/u CXR Subjective ROS Limited/Unobtainable: Yes Constitutional: Reports: fever, other - Cers=162.3 Respiratory: Reports: productive cough Allergies: Coded Allergies: No Known Allergies (Unverified , 05/30/16) Objective Vital Signs Last 24 Hour Vital Signs Date Time Temp Pulse Resp B/P Pulse Ox O2 Delivery O2 Flow Rate FiO2 06/29/16 09:33 106/57 06/29/16 08:00 98.8 101 20 106/57 96 Room Air 06/29/16 05:50 106 122/72 06/29/16 04:19 104 06/29/16 04:00 99.7 103 18 120/76 96 06/29/16 00:00 99.0 101 20 125/75 100 Nasal Cannula 2.0 06/28/16 22:32 105 111/59 06/28/16 20:00 104 06/28/16 20:00 100.0 105 20 107/55 93 Room Air 06/28/16 18:24 118 122/56 06/28/16 17:53 99.3 06/28/16 16:00 103.3 118 20 122/56 Nasal Cannula 2.0 94 06/28/16 16:00 120 06/28/16 12:00 118 120/59 06/28/16 11:48 99.5 110 20 120/59 96 Nasal Cannula 4.0 Height (Feet): 5 Height (Inches): 8.00 Weight (Pounds): 150 General Appearance: no acute distress HEENT: mucous membranes moist Respiratory/Chest: lungs clear Cardiovascular: normal rate Abdomen: soft, non tender, other - NG tube feeding Extremities: other - edema of legs, surgical dressings of feet Skin: other - necrotic fingers in R hand Neurologic/Psychiatric: alert, disoriented Microbiology Date/Time Source Procedure Growth Status 06/27/16 10:30 Blood Blood Culture - Preliminary NO GROWTH AFTER 24 HOURS Resulted 06/27/16 10:15 Blood Blood Culture - Preliminary NO GROWTH AFTER 24 HOURS Resulted 06/27/16 12:25 Indwelling Cath Urine Culture - Preliminary NO GROWTH AFTER 24 HOURS Resulted Laboratory Tests Test 06/29/16 03:30 Random Vancomycin Level 15.5 ug/mL Current Medications Medications (Trade) Dose Ordered Sig/Mateo Route PRN Reason Start Time Stop Time Status Last Admin Dose Admin Acetaminophen (Tylenol) 650 mg Q4H PRN NG Prn Headache/Temp > 101 06/28/16 14:36 07/26/16 17:29 Acetaminophen (Tylenol) 650 mg Q4H PRN RECTAL Mild Pain (Pain Scale 1-3) 06/26/16 17:30 07/26/16 17:29 06/27/16 05:17 Acetaminophen 650 mg 650 mg PRN PRN NG Mild Pain/Temp > 100.5 06/27/16 06:30 07/27/16 06:29 06/29/16 04:22 Ascorbic Acid (Vitamin C) 500 mg DAILY NG 06/28/16 11:00 07/28/16 10:59 06/29/16 09:33 Dextrose (Dextrose 50%) STAT PRN IV Hypoglycemia 06/26/16 20:30 07/26/16 20:29 Docusate Sodium (Colace) 100 mg TWICE A DAY ORAL 06/26/16 18:00 07/26/16 17:59 06/29/16 09:33 Epoetin Zia (Procrit (for ESRD on dialysis)) 10,000 units SUN-SUN-SUN SUBQ 06/26/16 21:00 07/26/16 20:59 06/28/16 21:47 Fluconazole (Diflucan) 100 mg DAILY NG 06/28/16 14:36 07/04/16 08:59 06/29/16 09:33 Insulin Aspart (NovoLOG) EVERY 6 HOURS SUBQ 06/29/16 12:00 07/29/16 11:59 Insulin Detemir (Levemir) 5 units Q12HR SUBQ 06/26/16 21:00 06/29/16 10:00 06/29/16 09:35 Insulin Detemir (Levemir) 5 units Q12HR@0600,1800 SUBQ 06/29/16 18:00 07/29/16 17:59 Iron Sucrose/ Sodium Chloride (Venofer/Sodium Chloride) 60 ml @ 240 mls/hr BEDTIME IVPB 06/29/16 21:00 07/03/16 21:14 Levetiracetam/ Dextrose (Keppra/D5W) 115 ml @ 460 mls/hr Q12HR IVPB 06/27/16 01:30 07/27/16 01:29 06/29/16 09:32 Lisinopril (Prinivil) 20 mg DAILY ORAL 06/27/16 09:00 07/27/16 08:59 06/29/16 09:33 Meropenem/Sodium Chloride (Merrem/Sodium Chloride) 55 ml @ 110 mls/hr EVERY 8 HOURS IVPB 06/27/16 14:00 07/02/16 13:59 06/29/16 05:55 Metoprolol Tartrate (Lopressor) 10 mg Q6H IVP 06/27/16 04:30 07/27/16 04:29 06/29/16 05:50 Morphine Sulfate (Morphine Sulfate) 1 mg Q4H PRN IVP For Moderate to Severe Pain 06/26/16 19:30 07/03/16 19:29 06/27/16 22:40 Multivitamins (Multivitamin Hexavitamin) 5 ml DAILY NG 06/28/16 11:00 07/28/16 10:59 06/29/16 09:35 Potassium Chloride 30 meq/ Sodium Chloride 1,015 ml @ 60 mls/hr [id number] IV 06/26/16 17:30 07/26/16 17:29 06/28/16 21:46 Sennosides 8.6 mg 8.6 mg DAILY NG 06/28/16 14:36 07/27/16 08:59 06/29/16 09:33 Vancomycin HCl 1 ea 1 ea DAILY PRN MISC PRN RX PROTOCOL 06/26/16 17:30 07/26/16 17:29 Vancomycin HCl/ Dextrose (Vancomycin/D5W) 275 ml @ 183.708 mls/hr Q12HR@0400,1600 IVPB 06/27/16 04:00 06/29/16 23:59 06/29/16 04:22 DE REILLY Jun 29, 2016 09:47
--- NOTE | 2016-06-29 12:31 | Diagnostic Imaging Report ---
Indications: COUGH Technique: Portal AP chest Findings: Comparison: 06/27/16 Mild diffuse bilateral interstitial prominence, asymmetric soft tissue prominence of left hilar region unchanged. Cardiac cell silhouette otherwise stable. No new pulmonary parenchymal or pleural abnormalities. Nasogastric tube remains in place. IMPRESSION: No change from 2 days prior
[2016-06-29 12:42] VITALS: BP 132/80
[2016-06-29] MEDS: Potassium Chloride 30 MEQ in 1/2 NS 1000ml 1,000 ML IV SCH (13:18)
--- NOTE | 2016-06-29 15:42 | Cardiology Report ---
APPROVED REPORT EKG Measurement Heart [id number] Sinus tachycardia Voltage criteria for left ventricular hypertrophy Abnormal ECG
[2016-06-29 16:00] VITALS: BP 109/74
--- NOTE | 2016-06-29 19:00 | Podiatric Progress Note ---
Assessment/Plan Patient Shoaib De Anda is a 56 year old male who was admitted on Jun 22, 2016 at 03:48 with bilateral forefoot gangrene and left foot infected ulcer Problems: (1) Ischemia of foot (2) Foot ulcer, left (3) Sepsis Assessment/Plan - Continue to monitor drainage daily. Will remove drain when less than 5cc collected over 24 hours - Keep dressings clean, dry, and in tact - Continue to offload heels - Will remove skin raysa 2 weeks from date of surgery Subjective Day of Surgery: 06/26/16 Reason for consult Bilateral forefoot gangrene with left foot infection Allergies: Coded Allergies: No Known Allergies (Unverified , 05/30/16) Subjective Patient is unable to communicate effectively. However, he appears to be resting comfortably in bed. Objective Exam Last 24 Hour Vital Signs Date Time Temp Pulse Resp B/P Pulse Ox O2 Delivery O2 Flow Rate FiO2 06/29/16 17:35 100 109/74 06/29/16 16:00 97.5 100 20 109/74 90 Room Air 06/29/16 12:42 98.2 96 20 132/80 96 Nasal Cannula 4.0 06/29/16 10:30 99 100/55 06/29/16 09:33 106/57 06/29/16 08:00 99 06/29/16 08:00 98.8 101 20 106/57 96 Room Air 06/29/16 05:50 106 122/72 06/29/16 04:19 104 06/29/16 04:00 99.7 103 18 120/76 96 06/29/16 00:00 99.0 101 20 125/75 100 Nasal Cannula 2.0 06/28/16 22:32 105 111/59 06/28/16 20:00 104 06/28/16 20:00 100.0 105 20 107/55 93 Room Air Laboratory Tests Test 06/29/16 03:30 Random Vancomycin Level 15.5 ug/mL Microbiology Date/Time Source Procedure Growth Status 06/27/16 10:30 Blood Blood Culture - Preliminary NO GROWTH AFTER 24 HOURS Resulted 06/22/16 04:54 Nasal Nares MRSA Culture - Final Staphylococcus Aureus - Mrsa Complete 06/27/16 12:25 Indwelling Cath Urine Culture - Preliminary NO GROWTH AFTER 24 HOURS Resulted 06/22/16 14:30 Foot Left Gram Stain - Final Complete 06/22/16 14:30 Wound Culture - Final Enterococcus Faecalis Complete Exam Narrative Bilateral foot with dressings that are clean, dry, and in tact. Right foot ANGELO drain with 15cc and left foot with 10cc of drainage recorded for today Lang Klein DPM Jun 29, 2016 19:00
[2016-06-29 20:00] VITALS: BP 111/80
[2016-06-29] MEDS: Iron Sucrose 100 MG in NS 55 ML IVPB SCH (21:44)
[2016-06-29] MEDS: Morphine Sulfate 2mg/ml Inj IVP PRN (23:21)
[2016-06-30] VITALS: BP 133/70
--- NOTE | 2016-06-30 03:37 | Progress Note ---
DATE: 06/29/2016 CARDIOLOGY PROGRESS NOTE SUBJECTIVE: The patient is defervescing. He has an NG tube for nutrition. He remains on IV fluids. Despite low hemoglobin, no transfusions have been given due to his Judaism status. OBJECTIVE: VITAL SIGNS: Blood pressure 106/57, pulse 101, respirations 20, and afebrile. T-max 100 degrees. HEENT: Conjunctivae are pink. Oropharynx clear. NECK: Supple. LUNGS: With clear breath sounds. CARDIAC: Regular rhythm. Rapid rate. Normal S1 and S2 with a fourth heart sound. EXTREMITIES: Amputation sites on both feet have dry dressings. LABORATORY DATA: White count 7.1 and hemoglobin 7.5 from 06/28/2016. Chest x-ray today is notable for diffuse interstitial prominence with no acute change. IMPRESSION: 1. Status post bilateral transmetatarsal amputations. 2. Severe anemia. 3. Secondary sinus tachycardia. 4. Sepsis. 5. Peripheral artery disease. 6. Diabetes mellitus, status post diabetic ketoacidosis. PLAN: 1. Intravenous Venofer. 2. Antibiotics. 3. Pain control. 4. Wound care. 5. NG-tube feedings. 6. DVT prophylaxis. 7. Epogen. 8. No transfusions of blood products. Morales Serrano M.D. DR: TEREZA JOB#: [id number] CC:
[2016-06-30] MEDS: Metoprolol 5mg/5ml Inj IVP SCH ×3 (04:30→18:06)
[2016-06-30 04:50] VITALS: BP 130/74
[2016-06-30] MEDS: Meropenem 500 MG in NS 55 ML IVPB SCH ×2 (05:47→13:16)
[2016-06-30] MEDS: NovoLOG Insulin Flexpen SUBQ SCH ×4 (05:49→18:09)
[2016-06-30] MEDS: Potassium Chloride 30 MEQ in 1/2 NS 1000ml 1,000 ML IV SCH ×2 (05:49→22:05)
[2016-06-30] MEDS: Levemir Flexpen SUBQ SCH ×2 (05:57→18:08)
[2016-06-30 08:32] VITALS: BP 119/75
[2016-06-30] MEDS: Lisinopril 20mg tab ORAL SCH (09:00)
[2016-06-30] MEDS: levETIRAcetam 500 MG in D5W 110 ML IVPB SCH ×2 (09:00→22:06)
[2016-06-30] MEDS: Multivitamin 5ml Liquid NG SCH (09:00)
[2016-06-30] MEDS: Docusate 100mg cap ORAL SCH (09:00)
[2016-06-30] MEDS: Fluconazole 100mg tab NG SCH (09:00)
[2016-06-30] MEDS: Ascorbic Acid 500mg tab NG SCH (09:00)
--- NOTE | 2016-06-30 09:36 | General Progress Note ---
Assessment/Plan Problem List: (1) Metabolic acidosis ICD Codes: E87.2 - Acidosis SNOMED: 52785949 (2) Ischemia of foot ICD Codes: I99.8 - Other disorder of circulatory system SNOMED: 376659621, 283332338 (3) Chronic kidney disease ICD Codes: N18.9 - Chronic kidney disease, unspecified SNOMED: 607913359 Qualifiers: Qualified Codes: N18.9 - Chronic kidney disease, unspecified (4) Anemia, chronic disease ICD Codes: D63.8 - Anemia in other chronic diseases classified elsewhere SNOMED: 723894232 (5) Encephalopathy ICD Codes: G93.40 - Encephalopathy, unspecified SNOMED: 20946823, 911723782 (6) Rhabdomyolysis ICD Codes: M62.82 - Rhabdomyolysis SNOMED: 678048051 (7) Sepsis ICD Codes: A41.9 - Sepsis, unspecified organism SNOMED: 56059625 Qualifiers: Qualified Codes: A41.9 - Sepsis, unspecified organism (8) Pneumonia ICD Codes: J18.9 - Pneumonia, unspecified organism SNOMED: 706592435 Status: stable, progressing Assessment/Plan iv abx per id follow up cultures monitor cxr tylenol for fevers ngt feeds. retry swallow as pt more alert ivf pain rx monitor labs epo/iron rx wound care per podiatry Subjective ROS Limited/Unobtainable: Yes Constitutional: Reports: malaise, weakness HEENT: Reports: no symptoms Cardiovascular: Reports: no symptoms Respiratory: Reports: no symptoms Gastrointestinal/Abdominal: Reports: difficulty swallowing Genitourinary: Reports: no symptoms Neurologic/Psychiatric: Reports: pre-existing deficit Endocrine: Reports: no symptoms Hematologic/Lymphatic: Reports: no symptoms Allergies: Coded Allergies: No Known Allergies (Unverified , 05/30/16) All Systems: reviewed and negative except above Subjective s/p transmetatarsal amputation- bilateral. afterwards. more somnolent, tachycardic and febrile. temp and hr trending down. failed swallow eval due to somnolence. now more alert. Objective Last 24 Hour Vital Signs Date Time Temp Pulse Resp B/P Pulse Ox O2 Delivery O2 Flow Rate FiO2 06/30/16 09:00 119/75 06/30/16 08:32 98.1 91 20 119/75 97 Nasal Cannula 4.0 06/30/16 04:50 98.0 93 20 130/74 92 Nasal Cannula 2.0 06/30/16 04:30 93 117/93 06/30/16 04:00 92 06/30/16 00:00 87 06/30/16 00:00 96.9 99 20 133/70 99 Nasal Cannula 2.0 06/29/16 23:24 96 133/70 06/29/16 20:00 98.8 94 18 111/80 96 Room Air 06/29/16 20:00 94 06/29/16 17:35 100 109/74 06/29/16 16:00 96 06/29/16 16:00 97.5 100 20 109/74 90 Room Air 06/29/16 12:42 98.2 96 20 132/80 96 Nasal Cannula 4.0 06/29/16 10:30 99 100/55 06/29/16 09:33 106/57 Intake and Output 06/29/16 06/30/16 19:00 07:00 Intake Total 1315 ml 1177.416 ml Output Total 525 ml 1300 ml Balance 790 ml -122.584 ml Free Water 150 ml IV Total 825 ml 1177.416 ml Tube Feeding 310 ml Other 30 ml Output Urine Total 500 ml 1300 ml Drainage Total 25 ml Height (Feet): 5 Height (Inches): 8.00 Weight (Pounds): 150 Objective Cardiovascular: regular rhythm Respiratory/Chest: rhonchi - bilaterally Abdomen: normal bowel sounds, non tender, soft, no organomegaly Edema: no edema noted Arm (L), no edema noted Arm (R), no edema noted Leg (L), no edema noted Leg (R), no edema noted Pedal (L), no edema noted Pedal (R), no edema noted Generalized Neurologic: responsive, disoriented Objective gangrene fingers right hand bilteral feet dressed DARYN JEREZ Jun 30, 2016 09:36
--- NOTE | 2016-06-30 11:28 | Infectious Diseases Prog Note ---
Assessment/Plan Assessment/Plan antibiotics : vancomycin iv, meropenem, fluconazole A 1. 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 renal failure improving 3. MRSA sepsis recently 4. DM 5. fever improving P 1. continue vancomycin iv, fluconazole 2. d/c meropenem 3. will follow up cultures Subjective ROS Limited/Unobtainable: Yes Allergies: Coded Allergies: No Known Allergies (Unverified , 05/30/16) Objective Vital Signs Last 24 Hour Vital Signs Date Time Temp Pulse Resp B/P Pulse Ox O2 Delivery O2 Flow Rate FiO2 06/30/16 11:17 98 123/78 06/30/16 09:00 119/75 06/30/16 08:32 98.1 91 20 119/75 97 Nasal Cannula 4.0 06/30/16 08:00 94 06/30/16 04:50 98.0 93 20 130/74 92 Nasal Cannula 2.0 06/30/16 04:30 93 117/93 06/30/16 04:00 92 06/30/16 00:00 87 06/30/16 00:00 96.9 99 20 133/70 99 Nasal Cannula 2.0 06/29/16 23:24 96 133/70 06/29/16 20:00 98.8 94 18 111/80 96 Room Air 06/29/16 20:00 94 06/29/16 17:35 100 109/74 06/29/16 16:00 96 06/29/16 16:00 97.5 100 20 109/74 90 Room Air 06/29/16 12:42 98.2 96 20 132/80 96 Nasal Cannula 4.0 Height (Feet): 5 Height (Inches): 8.00 Weight (Pounds): 150 Respiratory/Chest: lungs clear Cardiovascular: normal rate, regular rhythm, no gallop/murmur Abdomen: soft, non tender Extremities: other - + edema, bilateral foot dressings, ANGELO drains, right fingers cyanotic Microbiology Date/Time Source Procedure Growth Status 06/27/16 12:25 Indwelling Cath Urine Culture - Final NO GROWTH AFTER 48 HOURS Complete COLTON GONZALEZ Jun 30, 2016 11:28
[2016-06-30 12:03] VITALS: BP 127/72
[2016-06-30 16:36] VITALS: BP 135/84
--- NOTE | 2016-06-30 17:39 | Podiatric Progress Note ---
Assessment/Plan Patient Shoaib De Anda is a 56 year old male who was admitted on Jun 22, 2016 at 03:48 with sepsis Problems: (1) Foot ulcer, left (2) Ischemia of foot (3) Sepsis Assessment/Plan - Keep dressings clean, dry, and in tact - Continue to monitor drainage. Will pull drain when less than 5cc in 24 hours Subjective Day of Surgery: 06/26/16 Reason for consult Bilateral foot gangrene with left foot infected wound Procedure Performed Bilateral foot transmetatarsal Allergies: Coded Allergies: No Known Allergies (Unverified , 05/30/16) Subjective Patient is unable to communicate effectively Objective Exam Last 24 Hour Vital Signs Date Time Temp Pulse Resp B/P Pulse Ox O2 Delivery O2 Flow Rate FiO2 06/30/16 16:36 97.7 98 20 135/84 96 Room Air 06/30/16 12:03 98.1 90 20 127/72 95 Nasal Cannula 4.0 06/30/16 12:00 88 06/30/16 11:17 98 123/78 06/30/16 09:00 119/75 06/30/16 08:32 98.1 91 20 119/75 97 Nasal Cannula 4.0 06/30/16 08:00 94 06/30/16 04:50 98.0 93 20 130/74 92 Nasal Cannula 2.0 06/30/16 04:30 93 117/93 06/30/16 04:00 92 06/30/16 00:00 87 06/30/16 00:00 96.9 99 20 133/70 99 Nasal Cannula 2.0 06/29/16 23:24 96 133/70 06/29/16 20:00 98.8 94 18 111/80 96 Room Air 06/29/16 20:00 94 Microbiology Date/Time Source Procedure Growth Status 06/27/16 10:30 Blood Blood Culture - Preliminary NO GROWTH AFTER 48 HOURS Resulted 06/22/16 04:54 Nasal Nares MRSA Culture - Final Staphylococcus Aureus - Mrsa Complete 06/27/16 12:25 Indwelling Cath Urine Culture - Final NO GROWTH AFTER 48 HOURS Complete 06/22/16 14:30 Foot Left Gram Stain - Final Complete 06/22/16 14:30 Wound Culture - Final Enterococcus Faecalis Complete Exam Narrative Bilateral foot with dressings clean, dry, and intact. Some serosanguineous drainage noted in bilateral ANGELO drain Lang Klein DPM Jun 30, 2016 17:39
[2016-06-30] MEDS: Vancomycin 1 GM in D5W 275 ML IVPB SCH (18:06)
[2016-06-30 20:12] VITALS: BP 118/67
[2016-06-30] MEDS: Iron Sucrose 100 MG in NS 55 ML IVPB SCH (20:19)
[2016-06-30] MEDS: Epogen (for ESRD on dialysis) SUBQ SCH (22:06)
[2016-06-30] MEDS: Docusate 100mg tablet NG SCH (22:06)
[2016-06-30] MEDS: Metoprolol 50mg tab NG SCH (22:10)
[2016-07-01] VITALS: BP 139/79
--- NOTE | 2016-07-01 01:47 | Progress Note ---
DATE: 06/23/2016 SUBJECTIVE: The patient is confused. X-rays of the foot revealed gas in the soft tissues. The patient has had no fevers. OBJECTIVE: VITAL SIGNS: Blood pressure 131/82, pulse 89, respirations 19. Oxygen saturation on room air 97%. Monitored rhythm sinus and sinus tachycardia. Atrial ectopy is noted as well. LUNGS: Bilateral breath sounds. HEART: Regular rhythm and rate. Normal S1 and S2. ABDOMEN: Soft. EXTREMITIES: Trace edema. There is right hand with gangrenous changes as well as seep. LABORATORY DATA: Sodium 143, potassium 3.2, bicarb 22, BUN 17, creatinine 1. CK 229. IMPRESSION: 1. Gangrene of the foot, soft tissue infection with gas. 2. Sepsis. 3. Hypokalemia. 4. Paroxysmal atrial ectopy. 5. Secondary sinus tachycardia. 6. Diabetes mellitus, status post diabetic ketoacidosis. PLAN: Hydration. Potassium replacement. Antibiotics. Will need wound debridement. Podiatry on board. Titrate insulin. Monitor acid-base parameters. Continue beta-michelle therapy. Morales Serrano M.D. DR: ANNEL JOB#: [id number] CC:
--- NOTE | 2016-07-01 02:08 | Progress Note ---
DATE: 06/30/2016 CARDIOLOGY PROGRESS NOTE SUBJECTIVE: The patient's pain appears to be controlled. He is status post transmetatarsal amputation. He continues to have dry gangrene of his right hand. OBJECTIVE: VITAL SIGNS: Blood pressure of 119/75, pulse 91, and respirations 20. LUNGS: Bilateral breath sounds. HEART: Regular rhythm and rate. Normal S1, S2. ABDOMEN: Soft. EXTREMITIES: No edema. Feet are dressed, right hand has dry gangrene of the digits. Monitored rhythm sinus, sinus tachycardia, atrial ectopy and nonsustained. Laboratories pending. IMPRESSION: 1. Soft tissue infection with gangrene, status post amputation. 2. Peripheral artery disease. 3. Diabetes mellitus, status post diabetic ketoacidosis. 4. Secondary sinus tachycardia. 5. Paroxysmal atrial arrhythmias. PLAN: 1. Hydration and beta-blockade. 2. Titrate angiotensin-converting enzyme inhibitor. 3. Insulin coverage by sliding scale. 4. Antimicrobials per Infectious Disease insurance healthcare consultant. 5. Wound care and pain control. 6. Recheck laboratory studies. 7. DVT and stress ulcer prophylaxes. Morales Serrano M.D. DR: PAYAM JOB#: [id number] CC:
--- NOTE | 2016-07-01 03:27 | Progress Note ---
DATE: 06/24/2016 CARDIOLOGY PROGRESS NOTE SUBJECTIVE: The patient remains on antibiotic. Local wound care. He will require more surgical intervention due to gas-forming organisms in the setting of gangrene. OBJECTIVE: VITAL SIGNS: Blood pressure of 148/86, pulse 81, and respiratory rate 20. LUNGS: Bilateral breath sounds. HEART: Regular rhythm and rate. Normal S1 and S2. Fourth heart sound. ABDOMEN: Soft. EXTREMITIES: Trace edema, erythema, and warmth with gangrenous distal toes and the right hand with dry gangrene. LABORATORY DATA: No new laboratories. IMPRESSION: 1. Peripheral artery disease, status post diabetic ketoacidosis, resolved. 2. Soft tissue infection of the feet. 3. Hypertensive heart disease. 4. Secondary atrial ventricular ectopy. 5. Secondary sinus tachycardia. PLAN: 1. Surgical transmetatarsal amputation. 2. Skin care to the right hand. 3. Antibiotics per Infectious Disease railroad design consultant. 4. Beta-blockade. 5. Titrate angiotensin-converting enzyme inhibitor. 6. Replace electrolytes as needed. 7. Maintain adequate hydration by IV route. Morales Serrano M.D. DR: PAYAM JOB#: [id number] CC:
[2016-07-01] MEDS: Vancomycin 1 GM in D5W 275 ML IVPB SCH ×2 (04:00→18:00)
[2016-07-01 04:18] VITALS: BP 133/66
[2016-07-01] MEDS: Levemir Flexpen SUBQ SCH ×2 (06:00→18:01)
[2016-07-01] MEDS: NovoLOG Insulin Flexpen SUBQ SCH ×4 (06:00→18:01)
[2016-07-01 08:00] VITALS: BP 129/64
[2016-07-01 08:06] LABS: BASOPHILS % (AUTO) 0.3 % (0.0-2.0); EOSINOPHILS % (AUTO) 2.1 % (0.0-3.0); LYMPHOCYTES % (AUTO) 29.2 % (20.0-45.0); MEAN CORPUSCULAR HEMOGLOBIN 23.3 PG (27.0-31.0); MEAN CORPUSCULAR HGB CONC 29.8 G/DL (32.0-36.0); MEAN CORPUSCULAR VOLUME 78 FL (80-99); MEAN PLATELET VOLUME 7.4 FL (6.5-10.1); MONOCYTES % (AUTO) 4.6 % (1.0-10.0); NEUTROPHILS % (AUTO) 63.8 % (45.0-75.0); PLATELET COUNT 267 K/UL (150-450); RED BLOOD COUNT 3.47 M/UL (4.70-6.10)
[2016-07-01 08:21] LABS: ALANINE AMINOTRANSFERASE 29 U/L (3-41); ALBUMIN/GLOBULIN RATIO 0.6 (1.0-2.7); ANION GAP 13 (5-15); ASPARTATE AMINO TRANSFERASE 47 U/L (5-40); CALCIUM 8.8 mg/dL (8.6-10.2); CARBON DIOXIDE 28 mEQ/L (20-30); CHLORIDE 99 mEQ/L (98-107); CREATININE 0.5 mg/dL (0.7-1.2); GLOMERULAR FILTRATION RATE > 60 mL/min (>60); HEMOLYSIS 0; MAGNESIUM 1.4 mg/dL (1.7-2.5); POTASSIUM 3.7 mEQ/L (3.4-4.9); SODIUM 140 mEQ/L (135-145); TOTAL PROTEIN 6.9 g/dL (6.6-8.7)
--- NOTE | 2016-07-01 09:12 | General Progress Note ---
Assessment/Plan Problem List: (1) Metabolic acidosis ICD Codes: E87.2 - Acidosis SNOMED: 05167230 (2) Ischemia of foot ICD Codes: I99.8 - Other disorder of circulatory system SNOMED: 666430655, 062386275 (3) Chronic kidney disease ICD Codes: N18.9 - Chronic kidney disease, unspecified SNOMED: 769047145 Qualifiers: Qualified Codes: N18.9 - Chronic kidney disease, unspecified (4) Anemia, chronic disease ICD Codes: D63.8 - Anemia in other chronic diseases classified elsewhere SNOMED: 104849086 (5) Encephalopathy ICD Codes: G93.40 - Encephalopathy, unspecified SNOMED: 93221548, 796918049 (6) Rhabdomyolysis ICD Codes: M62.82 - Rhabdomyolysis SNOMED: 033070075 (7) Sepsis ICD Codes: A41.9 - Sepsis, unspecified organism SNOMED: 50322657 Qualifiers: Qualified Codes: A41.9 - Sepsis, unspecified organism (8) Pneumonia ICD Codes: J18.9 - Pneumonia, unspecified organism SNOMED: 608361399 Status: stable, progressing Assessment/Plan iv abx per id follow up cultures monitor cxr tylenol for fevers ngt feeds. GI eval. ?gt ivf pain rx monitor labs epo/iron rx wound care per podiatry Subjective ROS Limited/Unobtainable: Yes Constitutional: Reports: malaise, weakness HEENT: Reports: no symptoms Cardiovascular: Reports: no symptoms Respiratory: Reports: no symptoms Gastrointestinal/Abdominal: Reports: difficulty swallowing Genitourinary: Reports: no symptoms Neurologic/Psychiatric: Reports: pre-existing deficit Endocrine: Reports: no symptoms Hematologic/Lymphatic: Reports: no symptoms Allergies: Coded Allergies: No Known Allergies (Unverified , 05/30/16) All Systems: reviewed and negative except above Subjective s/p transmetatarsal amputation- bilateral. afterwards. more somnolent, tachycardic and febrile. temp and hr trending down. more alert but still failed swallow eval. Objective Last 24 Hour Vital Signs Date Time Temp Pulse Resp B/P Pulse Ox O2 Delivery O2 Flow Rate FiO2 07/01/16 08:00 99.0 101 20 129/64 97 Nasal Cannula 4.0 07/01/16 04:18 98.2 103 20 133/66 95 Nasal Cannula 2.0 07/01/16 03:48 103 07/01/16 00:00 97.0 100 20 139/79 94 Nasal Cannula 2.0 06/30/16 23:42 96 06/30/16 22:10 90 118/67 06/30/16 20:12 98.1 90 20 118/67 94 Nasal Cannula 4.0 06/30/16 20:00 90 06/30/16 18:06 98 135/84 06/30/16 16:36 97.7 98 20 135/84 96 Room Air 06/30/16 16:00 97 06/30/16 12:03 98.1 90 20 127/72 95 Nasal Cannula 4.0 06/30/16 12:00 88 06/30/16 11:17 98 123/78 Intake and Output 06/30/16 07/01/16 19:00 07:00 Intake Total 890 ml 1900.0 ml Output Total 1000 ml 2000 ml Balance -110 ml -100.0 ml Free Water 150 ml IV Total 890 ml 1695.0 ml Tube Feeding 55 ml Output Urine Total 1000 ml 2000 ml # Bowel Movements 1 1 Laboratory Tests 07/01/16 07:15: White Blood Count 5.0, Red Blood Count 3.47L, Hemoglobin 8.1L, Hematocrit 27.1L , Mean Corpuscular Volume 78L, Mean Corpuscular Hemoglobin 23.3L, Mean Corpuscular Hemoglobin Concent 29.8L, Red Cell Distribution Width 19.0H, Platelet Count 267, Mean Platelet Volume 7.4, Neutrophils (%) (Auto) 63.8, Lymphocytes (%) (Auto) 29.2, Monocytes (%) (Auto) 4.6, Eosinophils (%) (Auto) 2.1, Basophils (%) (Auto) 0.3, Sodium Level 140, Potassium Level 3.7, Chloride Level 99, Carbon Dioxide Level 28, Anion Gap 13, Blood Urea Nitrogen 8, Creatinine 0.5L, Estimat Glomerular Filtration Rate > 60, Glucose Level 116H, Calcium Level 8.8, Magnesium Level 1.4L, Total Bilirubin 0.3, Aspartate Amino Transf (AST/SGOT) 47H, Alanine Aminotransferase (ALT/SGPT) 29, Alkaline Phosphatase 148H, Total Protein 6.9, Albumin 2.6L, Globulin 4.3, Albumin/ Globulin Ratio 0.6L Height (Feet): 5 Height (Inches): 8.00 Weight (Pounds): 150 Objective Cardiovascular: regular rhythm Respiratory/Chest: rhonchi - bilaterally Abdomen: normal bowel sounds, non tender, soft, no organomegaly Edema: no edema noted Arm (L), no edema noted Arm (R), no edema noted Leg (L), no edema noted Leg (R), no edema noted Pedal (L), no edema noted Pedal (R), no edema noted Generalized Neurologic: responsive, disoriented Objective gangrene fingers right hand bilteral feet dressed DARYN JEREZ Jul 01, 2016 09:12
[2016-07-01] MEDS: levETIRAcetam 500 MG in D5W 110 ML IVPB SCH ×2 (09:35→19:58)
[2016-07-01] MEDS: Ascorbic Acid 500mg tab NG SCH (09:36)
[2016-07-01] MEDS: Lisinopril 20mg tab ORAL SCH (09:36)
[2016-07-01] MEDS: Docusate 100mg tablet NG SCH ×2 (09:36→18:00)
[2016-07-01] MEDS: Metoprolol 50mg tab NG SCH ×2 (09:36→20:37)
[2016-07-01] MEDS: Multivitamin 5ml Liquid NG SCH (09:37)
--- NOTE | 2016-07-01 10:34 | Podiatric Progress Note ---
Assessment/Plan Patient Shoaib De Anda is a 56 year old male who was admitted on Jun 22, 2016 at 03:48 with sepsis Problems: (1) Foot ulcer, left (2) Ischemia of foot (3) Sepsis Assessment/Plan - 4 days status post bilateral foot transmetatarsal amputation. Continue to monitor drainage. No documentation for 07/29/15 noted in chart. Will pull drain when less than 5cc drainage is noted over 24 hours - The incision sites are healing well without complication. Will pull skin raysa after 2-3 weeks from surgery date - Continue to keep the incision sites covered with dressings Subjective Day of Surgery: 06/26/16 Reason for consult Bilateral foot ischemia Procedure Performed Bilateral transmetatarsal amputation Allergies: Coded Allergies: No Known Allergies (Unverified , 05/30/16) Subjective Patient unable to communicate effectively Objective Exam Last 24 Hour Vital Signs Date Time Temp Pulse Resp B/P Pulse Ox O2 Delivery O2 Flow Rate FiO2 07/01/16 09:36 101 129/64 07/01/16 09:36 129/64 07/01/16 08:00 99.0 101 20 129/64 97 Nasal Cannula 4.0 07/01/16 04:18 98.2 103 20 133/66 95 Nasal Cannula 2.0 07/01/16 03:48 103 07/01/16 00:00 97.0 100 20 139/79 94 Nasal Cannula 2.0 06/30/16 23:42 96 06/30/16 22:10 90 118/67 06/30/16 20:12 98.1 90 20 118/67 94 Nasal Cannula 4.0 06/30/16 20:00 90 06/30/16 18:06 98 135/84 06/30/16 16:36 97.7 98 20 135/84 96 Room Air 06/30/16 16:00 97 06/30/16 12:03 98.1 90 20 127/72 95 Nasal Cannula 4.0 06/30/16 12:00 88 06/30/16 11:17 98 123/78 Laboratory Tests Test 07/01/16 07:15 White Blood Count 5.0 K/UL (4.8-10.8) Red Blood Count 3.47 M/UL (4.70-6.10) L Hemoglobin 8.1 G/DL (14.2-18.0) L Hematocrit 27.1 % (42.0-52.0) L Mean Corpuscular Volume 78 FL (80-99) L Mean Corpuscular Hemoglobin 23.3 PG (27.0-31.0) L Mean Corpuscular Hemoglobin Concent 29.8 G/DL (32.0-36.0) L Red Cell Distribution Width 19.0 % (11.6-14.8) H Platelet Count 267 K/UL (150-450) Mean Platelet Volume 7.4 FL (6.5-10.1) Neutrophils (%) (Auto) 63.8 % (45.0-75.0) Lymphocytes (%) (Auto) 29.2 % (20.0-45.0) Monocytes (%) (Auto) 4.6 % (1.0-10.0) Eosinophils (%) (Auto) 2.1 % (0.0-3.0) Basophils (%) (Auto) 0.3 % (0.0-2.0) Sodium Level 140 mEQ/L (135-145) Potassium Level 3.7 mEQ/L (3.4-4.9) Chloride Level 99 mEQ/L (98-107) Carbon Dioxide Level 28 mEQ/L (20-30) Anion Gap 13 (5-15) Blood Urea Nitrogen 8 mg/dL (7-23) Creatinine 0.5 mg/dL (0.7-1.2) L Estimat Glomerular Filtration Rate > 60 mL/min (>60) Glucose Level 116 mg/dL (74-106) H Calcium Level 8.8 mg/dL (8.6-10.2) Magnesium Level 1.4 mg/dL (1.7-2.5) L Total Bilirubin 0.3 mg/dL (0.0-1.2) Aspartate Amino Transf (AST/SGOT) 47 U/L (5-40) H Alanine Aminotransferase (ALT/SGPT) 29 U/L (3-41) Alkaline Phosphatase 148 U/L (40-129) H Total Protein 6.9 g/dL (6.6-8.7) Albumin 2.6 g/dL (3.5-5.2) L Globulin 4.3 g/dL Albumin/Globulin Ratio 0.6 (1.0-2.7) L Microbiology Date/Time Source Procedure Growth Status 06/27/16 10:30 Blood Blood Culture - Preliminary NO GROWTH AFTER 48 HOURS Resulted 06/22/16 04:54 Nasal Nares MRSA Culture - Final Staphylococcus Aureus - Mrsa Complete 06/27/16 12:25 Indwelling Cath Urine Culture - Final NO GROWTH AFTER 48 HOURS Complete 06/22/16 14:30 Foot Left Gram Stain - Final Complete 06/22/16 14:30 Wound Culture - Final Enterococcus Faecalis Complete Exam Narrative Incision sites are well coapted with raysa in tact. Current drainage in ANGELO drain is less than 5cc bilaterally Lang Klein DPM Jul 01, 2016 10:34
--- NOTE | 2016-07-01 11:09 | Infectious Diseases Prog Note ---
Assessment/Plan Assessment/Plan antibiotics : vancomycin iv, fluconazole A 1. 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 renal failure improving 3. MRSA sepsis recently 4. DM 5. fungal UTI s/p rx P 1. continue vancomycin iv 2. d/c fluconazole 3. will follow up cultures Subjective ROS Limited/Unobtainable: Yes Allergies: Coded Allergies: No Known Allergies (Unverified , 05/30/16) Objective Vital Signs Last 24 Hour Vital Signs Date Time Temp Pulse Resp B/P Pulse Ox O2 Delivery O2 Flow Rate FiO2 07/01/16 09:36 101 129/64 07/01/16 09:36 129/64 07/01/16 08:00 99.0 101 20 129/64 97 Nasal Cannula 4.0 07/01/16 04:18 98.2 103 20 133/66 95 Nasal Cannula 2.0 07/01/16 03:48 103 07/01/16 00:00 97.0 100 20 139/79 94 Nasal Cannula 2.0 06/30/16 23:42 96 06/30/16 22:10 90 118/67 06/30/16 20:12 98.1 90 20 118/67 94 Nasal Cannula 4.0 06/30/16 20:00 90 06/30/16 18:06 98 135/84 06/30/16 16:36 97.7 98 20 135/84 96 Room Air 06/30/16 16:00 97 06/30/16 12:03 98.1 90 20 127/72 95 Nasal Cannula 4.0 06/30/16 12:00 88 06/30/16 11:17 98 123/78 Height (Feet): 5 Height (Inches): 8.00 Weight (Pounds): 150 Respiratory/Chest: lungs clear Cardiovascular: normal rate, regular rhythm, no gallop/murmur Abdomen: soft, non tender Extremities: other Laboratory Tests Test 07/01/16 07:15 White Blood Count 5.0 K/UL (4.8-10.8) Red Blood Count 3.47 M/UL (4.70-6.10) L Hemoglobin 8.1 G/DL (14.2-18.0) L Hematocrit 27.1 % (42.0-52.0) L Mean Corpuscular Volume 78 FL (80-99) L Mean Corpuscular Hemoglobin 23.3 PG (27.0-31.0) L Mean Corpuscular Hemoglobin Concent 29.8 G/DL (32.0-36.0) L Red Cell Distribution Width 19.0 % (11.6-14.8) H Platelet Count 267 K/UL (150-450) Mean Platelet Volume 7.4 FL (6.5-10.1) Neutrophils (%) (Auto) 63.8 % (45.0-75.0) Lymphocytes (%) (Auto) 29.2 % (20.0-45.0) Monocytes (%) (Auto) 4.6 % (1.0-10.0) Eosinophils (%) (Auto) 2.1 % (0.0-3.0) Basophils (%) (Auto) 0.3 % (0.0-2.0) Sodium Level 140 mEQ/L (135-145) Potassium Level 3.7 mEQ/L (3.4-4.9) Chloride Level 99 mEQ/L (98-107) Carbon Dioxide Level 28 mEQ/L (20-30) Anion Gap 13 (5-15) Blood Urea Nitrogen 8 mg/dL (7-23) Creatinine 0.5 mg/dL (0.7-1.2) L Estimat Glomerular Filtration Rate > 60 mL/min (>60) Glucose Level 116 mg/dL (74-106) H Calcium Level 8.8 mg/dL (8.6-10.2) Magnesium Level 1.4 mg/dL (1.7-2.5) L Total Bilirubin 0.3 mg/dL (0.0-1.2) Aspartate Amino Transf (AST/SGOT) 47 U/L (5-40) H Alanine Aminotransferase (ALT/SGPT) 29 U/L (3-41) Alkaline Phosphatase 148 U/L (40-129) H Total Protein 6.9 g/dL (6.6-8.7) Albumin 2.6 g/dL (3.5-5.2) L Globulin 4.3 g/dL Albumin/Globulin Ratio 0.6 (1.0-2.7) L COLTON GONZALEZ Jul 01, 2016 11:09
[2016-07-01 12:00] VITALS: BP 122/72
[2016-07-01] MEDS ORDERED: Tubing IV Secondary IV ONE (14:33)
[2016-07-01] MEDS ORDERED: NS 275ml ONE ×2 (14:33→14:41)
[2016-07-01] MEDS ORDERED: D5 1/2NS 1000ml IV ONE (14:41)
[2016-07-01] MEDS ORDERED: Sterile Water Irrig 1000ml IRRIG ONE ×2 (14:41→14:42)
[2016-07-01 16:00] VITALS: BP 109/62
[2016-07-01] MEDS: Potassium Chloride 30 MEQ in 1/2 NS 1000ml 1,000 ML IV SCH (18:00)
[2016-07-01 20:00] VITALS: BP 129/79
[2016-07-01] MEDS: Iron Sucrose 100 MG in NS 55 ML IVPB SCH (20:33)
[2016-07-02] VITALS: BP 123/72
--- NOTE | 2016-07-02 03:37 | Progress Note ---
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 Sinus rhythm and sinus tachycardia. Occasional PACs noted. The patient continues to have lethargy, somnolence, and low-grade fevers. Oral intake is poor. NG-tube is present for nutrition. OBJECTIVE: VITAL SIGNS: Blood pressure 129/64, pulse 101, respirations 20, temperature 99.0 degrees, and oxygen saturation on 4 liters of nasal cannula 97%. HEENT: Conjunctivae are pink. Oropharynx is clear. NECK: Supple. LUNGS: With clear breath sounds. CARDIAC: Regular rhythm. Rapid rate. Normal S1 and S2. ABDOMEN: Soft. EXTREMITIES: With trace edema. Wound is dressed. Right hand with dry gangrene of the digits. LABORATORY DATA: White count 5 and hemoglobin 8.1. Potassium 3.7, BUN 8, and creatinine 0.5. Magnesium is 1.4. Albumin is 2.6. IMPRESSION: 1. Bilateral gangrene of the feet status post transmetatarsal amputation. 2. Sinus tachycardia. 3. Anemia. 4. Severe protein-calorie malnutrition. 5. Diabetes mellitus on insulin with recent episode of diabetic ketoacidosis and metabolic acidosis. 6. Hypomagnesemia. PLAN: 1. Pain control. 2. Antibiotics. 3. IV fluids. 4. Nutrition by feeding tube. 5. IV magnesium. 6. Continue beta-blockade. Morales Serrano M.D. DR: IGNACIO JOB#: [id number] CC:
[2016-07-02 04:00] VITALS: BP 110/76
[2016-07-02] MEDS: Vancomycin 1 GM in D5W 275 ML IVPB SCH ×2 (05:00→17:00)
[2016-07-02] MEDS: NovoLOG Insulin Flexpen SUBQ SCH ×4 (05:59→17:02)
[2016-07-02] MEDS: Levemir Flexpen SUBQ SCH ×2 (06:13→17:00)
[2016-07-02 08:00] VITALS: BP 129/70
--- NOTE | 2016-07-02 08:27 | General Progress Note ---
Assessment/Plan Problem List: (1) Metabolic acidosis ICD Codes: E87.2 - Acidosis SNOMED: 87836381 (2) Ischemia of foot ICD Codes: I99.8 - Other disorder of circulatory system SNOMED: 284415835, 080533677 (3) Chronic kidney disease ICD Codes: N18.9 - Chronic kidney disease, unspecified SNOMED: 339406590 Qualifiers: Qualified Codes: N18.9 - Chronic kidney disease, unspecified (4) Anemia, chronic disease ICD Codes: D63.8 - Anemia in other chronic diseases classified elsewhere SNOMED: 156458532 (5) Encephalopathy ICD Codes: G93.40 - Encephalopathy, unspecified SNOMED: 93148229, 050131624 (6) Rhabdomyolysis ICD Codes: M62.82 - Rhabdomyolysis SNOMED: 966435003 (7) Sepsis ICD Codes: A41.9 - Sepsis, unspecified organism SNOMED: 95823688 Qualifiers: Qualified Codes: A41.9 - Sepsis, unspecified organism (8) Pneumonia ICD Codes: J18.9 - Pneumonia, unspecified organism SNOMED: 425112200 Qualifiers: Status: stable, progressing Assessment/Plan iv abx per id follow up cultures monitor cxr tylenol for fevers ngt feeds. GI eval. ?gt ivf pain rx monitor labs epo/iron rx wound care per podiatry Subjective ROS Limited/Unobtainable: Yes Constitutional: Reports: malaise, weakness HEENT: Reports: no symptoms Cardiovascular: Reports: no symptoms Respiratory: Reports: no symptoms Gastrointestinal/Abdominal: Reports: difficulty swallowing Genitourinary: Reports: no symptoms Neurologic/Psychiatric: Reports: pre-existing deficit Endocrine: Reports: no symptoms Hematologic/Lymphatic: Reports: no symptoms Allergies: Coded Allergies: No Known Allergies (Unverified , 05/30/16) All Systems: reviewed and negative except above Subjective s/p transmetatarsal amputation- bilateral. afterwards. more somnolent, tachycardic and febrile. temp and hr trending down. more alert but still failed swallow eval. CT head negative yesterday(family requested). Gi to re-eval; for gt. Objective Last 24 Hour Vital Signs Date Time Temp Pulse Resp B/P Pulse Ox O2 Delivery O2 Flow Rate FiO2 07/02/16 04:00 97.7 91 20 110/76 95 Nasal Cannula 2.0 07/02/16 03:56 89 07/02/16 00:00 97.7 80 20 123/72 95 Nasal Cannula 2.0 07/01/16 23:32 80 07/01/16 20:37 95 127/82 07/01/16 20:00 97.9 85 18 129/79 94 Room Air 07/01/16 20:00 94 07/01/16 16:00 98.4 88 18 109/62 95 Room Air 07/01/16 16:00 89 07/01/16 12:00 85 07/01/16 12:00 98.1 85 20 122/72 99 Nasal Cannula 4.0 07/01/16 09:36 101 129/64 07/01/16 09:36 129/64 Intake and Output 07/01/16 07/02/16 19:00 07:00 Intake Total 838.708 ml 2707.416 ml Output Total 1130 ml 2230 ml Balance -291.292 ml 477.416 ml Free Water 200 ml IV Total 838.708 ml 2067.416 ml Tube Feeding 440 ml Output Urine Total 1050 ml 2200 ml Drainage Total 80 ml 30 ml # Bowel Movements 1 2 Height (Feet): 5 Height (Inches): 8.00 Weight (Pounds): 150 Objective Cardiovascular: regular rhythm Respiratory/Chest: rhonchi - bilaterally Abdomen: normal bowel sounds, non tender, soft, no organomegaly Edema: no edema noted Arm (L), no edema noted Arm (R), no edema noted Leg (L), no edema noted Leg (R), no edema noted Pedal (L), no edema noted Pedal (R), no edema noted Generalized Neurologic: responsive, disoriented Objective gangrene fingers right hand bilteral feet dressed DARYN JEREZ Jul 02, 2016 08:27
[2016-07-02] MEDS: levETIRAcetam 500 MG in D5W 110 ML IVPB SCH ×2 (08:45→20:28)
[2016-07-02] MEDS: Multivitamin 5ml Liquid NG SCH (08:45)
[2016-07-02] MEDS: Docusate 100mg tablet NG SCH ×2 (08:45→18:00)
[2016-07-02] MEDS: Ascorbic Acid 500mg tab NG SCH (08:45)
[2016-07-02] MEDS: Metoprolol 50mg tab NG SCH ×2 (08:45→21:00)
[2016-07-02] MEDS: Lisinopril 20mg tab ORAL SCH (08:46)
[2016-07-02] MEDS: Potassium Chloride 30 MEQ in 1/2 NS 1000ml 1,000 ML IV SCH (08:47)
--- NOTE | 2016-07-02 09:37 | Diagnostic Imaging Report ---
CT Brain without Intravenous Contrast INDICATION: Lethargic. COMPARISON: None TECHNIQUE: Serial axial images were obtained from the the skull base through the vertex without intravenous contrast. Coronal reformats were obtained. Dose Estimate: Total DLP 1435 mGycm CTDIvol 70 mGy FINDINGS: Confluent hypodensities involving the bilateral frontal lobes right occipital and parietal lobes, and left parietal lobe near the vertex may reflect encephalomalacia from prior injury or infarct. Patient is status post previous craniotomy involving the posterior parietal region. Nondisplaced left frontal bone fracture extending into the sagittal suture is identified. There is a 2 mm acute subdural hematoma along the high left frontal convexity beneath the mentioned fracture. The ventricles, sulci and cisterns are mildly enlarged for patient's age. There is no midline shift. Mild air-fluid levels noted in the sphenoid sinuses and partially imaged left maxillary sinus. Mastoid air cells are clear. IMPRESSION: 1. Acute nondisplaced left frontal bone fracture extending into the sagittal suture with a 2 mm acute subdural hematoma along the high left frontal convexity beneath the fracture line. 2. Status post previous craniotomy involving the posterior parietal region. Confluent hypodensities involving the bilateral frontal lobes right occipital and parietal lobes, and left parietal lobe near the vertex may reflect encephalomalacia from prior injury or infarct. Consider MRI if there is concern for acute infarct. 3. No midline shift. 4. 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 Findings were discussed with the nurse taking care the patient at 9:30 AM on 07/02/16.
[2016-07-02] MEDS ORDERED: D5NS 1000ml IV ONE (09:42)
--- NOTE | 2016-07-02 10:50 | Infectious Diseases Prog Note ---
Assessment/Plan Assessment/Plan A 1. bilateral feet and right fingers gangrene 2. renal failure improving 3. MRSA sepsis recently 4. DM 5. left frontal bone fracture, subdural hematoma 6. Post operative fever 7. s/p bilateral transmetatarsal amputation P 1. continue Vancomycin Subjective ROS Limited/Unobtainable: Yes Allergies: Coded Allergies: No Known Allergies (Unverified , 05/30/16) Objective Vital Signs Last 24 Hour Vital Signs Date Time Temp Pulse Resp B/P Pulse Ox O2 Delivery O2 Flow Rate FiO2 07/02/16 08:46 129/87 07/02/16 08:45 87 129/81 07/02/16 08:00 91 07/02/16 08:00 97.7 87 18 129/70 95 2.0 07/02/16 04:00 97.7 91 20 110/76 95 Nasal Cannula 2.0 07/02/16 03:56 89 07/02/16 00:00 97.7 80 20 123/72 95 Nasal Cannula 2.0 07/01/16 23:32 80 07/01/16 20:37 95 127/82 07/01/16 20:00 97.9 85 18 129/79 94 Room Air 07/01/16 20:00 94 07/01/16 16:00 98.4 88 18 109/62 95 Room Air 07/01/16 16:00 89 07/01/16 12:00 85 07/01/16 12:00 98.1 85 20 122/72 99 Nasal Cannula 4.0 Height (Feet): 5 Height (Inches): 8.00 Weight (Pounds): 150 General Appearance: no acute distress HEENT: mucous membranes moist Respiratory/Chest: lungs clear Cardiovascular: normal rate Abdomen: soft, non tender, other - NG tube feeding Extremities: other - biltaeral TMA, surgical drains Neurologic/Psychiatric: alert, responsive, disoriented Current Medications Medications (Trade) Dose Ordered Sig/Mateo Route PRN Reason Start Time Stop Time Status Last Admin Dose Admin Acetaminophen (Tylenol) 650 mg PRN PRN NG Mild Pain/Temp > 100.5 06/27/16 06:30 07/27/16 06:29 06/29/16 04:22 Acetaminophen (Tylenol) 650 mg Q4H PRN NG Prn Headache/Temp > 101 06/28/16 14:36 07/26/16 17:29 Acetaminophen (Tylenol) 650 mg Q4H PRN RECTAL Mild Pain (Pain Scale 1-3) 06/26/16 17:30 07/26/16 17:29 06/27/16 05:17 Ascorbic Acid (Vitamin C) 500 mg DAILY NG 06/28/16 11:00 07/28/16 10:59 07/02/16 08:45 Dextrose (Dextrose 50%) STAT PRN IV Hypoglycemia 06/26/16 20:30 07/26/16 20:29 Docusate Sodium (Colace) 100 mg BID NG 06/30/16 20:00 07/30/16 19:59 07/02/16 08:45 Epoetin Zia (Procrit (for ESRD on dialysis)) 10,000 units SUN-SUN-SUN SUBQ 06/26/16 21:00 07/26/16 20:59 06/30/16 22:06 Insulin Aspart (NovoLOG) EVERY 6 HOURS SUBQ 06/29/16 12:00 07/29/16 11:59 07/01/16 18:01 Insulin Detemir 5 units 5 units Q12HR@0600,1800 SUBQ 06/29/16 18:00 07/29/16 17:59 07/02/16 06:13 Iron Sucrose/ Sodium Chloride (Venofer/Sodium Chloride) 60 ml @ 240 mls/hr BEDTIME IVPB 06/29/16 21:00 07/03/16 21:14 07/01/16 20:33 Levetiracetam/ Dextrose (Keppra/D5W) 115 ml @ 460 mls/hr Q12HR IVPB 06/27/16 01:30 07/27/16 01:29 07/02/16 08:45 Lisinopril (Prinivil) 20 mg DAILY ORAL 06/27/16 09:00 07/27/16 08:59 07/02/16 08:46 Metoprolol Tartrate (Lopressor) 50 mg Q12HR NG 06/30/16 21:00 07/30/16 20:59 07/02/16 08:45 Morphine Sulfate (Morphine Sulfate) 1 mg Q4H PRN IVP For Moderate to Severe Pain 06/26/16 19:30 07/03/16 19:29 06/29/16 23:21 Multivitamins (Multivitamin Hexavitamin) 5 ml DAILY NG 06/28/16 11:00 07/28/16 10:59 07/02/16 08:45 Potassium Chloride/Sodium Chloride (KCl/0.45% NS 1000ml) 1,015 ml @ 60 mls/hr [id number] IV 06/26/16 17:30 07/26/16 17:29 07/02/16 08:47 Sennosides 8.6 mg 8.6 mg DAILY NG 06/28/16 14:36 07/27/16 08:59 07/02/16 08:45 Vancomycin HCl 1 ea 1 ea DAILY PRN MISC PRN RX PROTOCOL 06/26/16 17:30 07/26/16 17:29 Vancomycin HCl/ Dextrose (Vancomycin/D5W) 275 ml @ 183.708 mls/hr Q12HR@0400,1600 IVPB 06/30/16 16:00 07/05/16 15:59 07/02/16 05:00 DE REILLY Jul 02, 2016 10:50
[2016-07-02 12:00] VITALS: BP 130/81
[2016-07-02 16:00] VITALS: BP 117/87
[2016-07-02 20:00] VITALS: BP 130/90
[2016-07-02] MEDS: Iron Sucrose 100 MG in NS 55 ML IVPB SCH (20:00)
[2016-07-03] VITALS: BP 148/87
--- NOTE | 2016-07-03 00:18 | Progress Note ---
DATE: 07/02/2016 CARDIOLOGY PROGRESS NOTE SUBJECTIVE: The patient continues with wound care. He is more alert, but still failed the swallow evaluation. He had a CT scan of the brain yesterday that revealed no acute process. OBJECTIVE: VITAL SIGNS: Afebrile, blood pressure 110/76, pulse 91, respiratory rate 20, and oxygen saturation 95% on two liters nasal cannula and 94% on room air. LUNGS: Diminished breath sounds, but clear. CARDIAC: Regular rhythm and rate. Normal S1 and S2 with a fourth heart sound. ABDOMEN: Soft and nontender. EXTREMITIES: With bilateral transmetatarsal amputation sites, dressing in place. Slight scant with dry gangrene of the digits. IMPRESSION: 1. Sepsis, recovered shock, resolved rhabdomyolysis. Peripheral artery disease with diffuse gangrene status post bilateral transmetatarsal amputations, persistent gangrene of the right upper extremity. 2. Insulin-requiring diabetes mellitus status post diabetic ketoacidosis. 3. Chronic kidney disease, stable. 4. Dysphagia. 5. Toxic and metabolic encephalopathy . PLAN: 1. Antibiotics, pain control, wound care, NG-tube feeding and possible G-tube placement. 2. DVT prophylaxis. 3. Maintain adequate hydration. 4. Transfuse for hemoglobin below 8 grams. 5. Continue current cardiovascular regimen including beta-michelle and angiotensin-converting enzyme inhibitor. Morales Serrano M.D. DR: DOUGLAS JOB#: [id number] CC:
[2016-07-03 04:00] VITALS: BP 131/51
[2016-07-03] MEDS: Potassium Chloride 30 MEQ in 1/2 NS 1000ml 1,000 ML IV SCH ×2 (04:00→18:40)
[2016-07-03] MEDS: Vancomycin 1 GM in D5W 275 ML IVPB SCH ×2 (04:30→16:00)
[2016-07-03] MEDS: Levemir Flexpen SUBQ SCH ×2 (06:01→17:50)
[2016-07-03] MEDS: NovoLOG Insulin Flexpen SUBQ SCH ×5 (06:02→23:52)
[2016-07-03 07:37] LABS: BASOPHILS % (AUTO) 0.5 % (0.0-2.0); EOSINOPHILS % (AUTO) 4.1 % (0.0-3.0); LYMPHOCYTES % (AUTO) 29.4 % (20.0-45.0); MEAN CORPUSCULAR HEMOGLOBIN 23.2 PG (27.0-31.0); MEAN CORPUSCULAR HGB CONC 29.9 G/DL (32.0-36.0); MEAN CORPUSCULAR VOLUME 78 FL (80-99); MEAN PLATELET VOLUME 7.9 FL (6.5-10.1); NEUTROPHILS % (AUTO) 60.1 % (45.0-75.0); PLATELET COUNT 298 K/UL (150-450); RED BLOOD COUNT 3.58 M/UL (4.70-6.10); RED CELL DISTRIBUTION WIDTH 20.2 % (11.6-14.8)
[2016-07-03 07:53] LABS: ALANINE AMINOTRANSFERASE 22 U/L (3-41); ALBUMIN/GLOBULIN RATIO 0.6 (1.0-2.7); ANION GAP 13 (5-15); ASPARTATE AMINO TRANSFERASE 31 U/L (5-40); CALCIUM 8.9 mg/dL (8.6-10.2); CARBON DIOXIDE 28 mEQ/L (20-30); CHLORIDE 98 mEQ/L (98-107); CREATININE 0.5 mg/dL (0.7-1.2); GLOMERULAR FILTRATION RATE > 60 mL/min (>60); HEMOLYSIS 0; POTASSIUM 3.8 mEQ/L (3.4-4.9); SODIUM 139 mEQ/L (135-145); TOTAL PROTEIN 7.1 g/dL (6.6-8.7)
[2016-07-03 07:59] VITALS: BP 155/91
[2016-07-03] MEDS: Multivitamin 5ml Liquid NG SCH (09:48)
[2016-07-03] MEDS: Docusate 100mg tablet NG SCH ×2 (09:48→17:51)
[2016-07-03] MEDS: Lisinopril 20mg tab ORAL SCH (09:49)
[2016-07-03] MEDS: Metoprolol 50mg tab NG SCH ×2 (09:49→20:45)
[2016-07-03] MEDS: Ascorbic Acid 500mg tab NG SCH (09:49)
[2016-07-03] MEDS: levETIRAcetam 500 MG in D5W 110 ML IVPB SCH ×2 (09:50→20:55)
--- NOTE | 2016-07-03 10:11 | Diagnostic Imaging Report ---
Indication: Status post nasogastric tube placement Technique: Supine view of the abdomen Comparison: 06/30/2016 Findings: There is a nasogastric tube in place, tip projected at the level gastric body/antrum junction. Limited view of the bowel gas is unremarkable. There appears to be parenchymal disease at the lung bases incidentally noted. Impression: Satisfactory position of nasogastric tube Other findings as noted This agrees with the preliminary interpretation provided overnight by [facility] teleradiology service.
--- NOTE | 2016-07-03 10:49 | Infectious Diseases Prog Note ---
Assessment/Plan Assessment/Plan antibiotics : vancomycin iv A 1. 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 renal failure improving 3. MRSA sepsis recently 4. DM 5. fungal UTI s/p rx P 1. continue vancomycin iv 2. will follow up cultures Subjective ROS Limited/Unobtainable: Yes Allergies: Coded Allergies: No Known Allergies (Unverified , 05/30/16) Objective Vital Signs Last 24 Hour Vital Signs Date Time Temp Pulse Resp B/P Pulse Ox O2 Delivery O2 Flow Rate FiO2 07/03/16 09:49 115 155/91 07/03/16 09:49 155/91 07/03/16 07:59 98.2 115 20 155/91 95 Nasal Cannula 2.0 07/03/16 07:58 Nasal Cannula 2.0 28 07/03/16 07:57 95 Nasal Cannula 2.0 28 07/03/16 04:00 105 07/03/16 04:00 98.2 102 18 131/51 95 Nasal Cannula 2.0 07/03/16 00:00 98 07/03/16 00:00 97.5 100 18 148/87 95 Room Air 07/02/16 20:00 97.3 95 18 130/90 91 Room Air 07/02/16 20:00 92 07/02/16 16:00 86 07/02/16 16:00 97.9 87 20 117/87 94 Room Air 07/02/16 12:00 97.8 97 18 130/81 97 Nasal Cannula 2.0 07/02/16 12:00 76 Height (Feet): 5 Height (Inches): 8.00 Weight (Pounds): 150 Respiratory/Chest: lungs clear Cardiovascular: normal rate, regular rhythm, no gallop/murmur Abdomen: soft, non tender Extremities: other - + edema, in dressings, ANGELO drains, right fingers cyanotic Laboratory Tests Test 07/03/16 06:25 White Blood Count 6.0 K/UL (4.8-10.8) Red Blood Count 3.58 M/UL (4.70-6.10) L Hemoglobin 8.3 G/DL (14.2-18.0) L Hematocrit 27.8 % (42.0-52.0) L Mean Corpuscular Volume 78 FL (80-99) L Mean Corpuscular Hemoglobin 23.2 PG (27.0-31.0) L Mean Corpuscular Hemoglobin Concent 29.9 G/DL (32.0-36.0) L Red Cell Distribution Width 20.2 % (11.6-14.8) H Platelet Count 298 K/UL (150-450) Mean Platelet Volume 7.9 FL (6.5-10.1) Neutrophils (%) (Auto) 60.1 % (45.0-75.0) Lymphocytes (%) (Auto) 29.4 % (20.0-45.0) Monocytes (%) (Auto) 6.0 % (1.0-10.0) Eosinophils (%) (Auto) 4.1 % (0.0-3.0) H Basophils (%) (Auto) 0.5 % (0.0-2.0) Sodium Level 139 mEQ/L (135-145) Potassium Level 3.8 mEQ/L (3.4-4.9) Chloride Level 98 mEQ/L (98-107) Carbon Dioxide Level 28 mEQ/L (20-30) Anion Gap 13 (5-15) Blood Urea Nitrogen 6 mg/dL (7-23) L Creatinine 0.5 mg/dL (0.7-1.2) L Estimat Glomerular Filtration Rate > 60 mL/min (>60) Glucose Level 127 mg/dL (74-106) H Calcium Level 8.9 mg/dL (8.6-10.2) Total Bilirubin 0.3 mg/dL (0.0-1.2) Aspartate Amino Transf (AST/SGOT) 31 U/L (5-40) Alanine Aminotransferase (ALT/SGPT) 22 U/L (3-41) Alkaline Phosphatase 150 U/L (40-129) H Total Protein 7.1 g/dL (6.6-8.7) Albumin 2.7 g/dL (3.5-5.2) L Globulin 4.4 g/dL Albumin/Globulin Ratio 0.6 (1.0-2.7) L COLTON GONZALEZ Jul 03, 2016 10:49
[2016-07-03 11:37] VITALS: BP 147/90
--- NOTE | 2016-07-03 11:38 | Diagnostic Imaging Report ---
Indications: Altered level of consciousness Technique: Spiral acquisitions obtained through the brain. Angled axial and coronal 5 x 5 mm slices were reconstructed. Total dose length product 1460 mGycm. CTDI vol(s) 7 mGy Comparison: 07/01/2016 Findings: Fairly symmetric and fairly extensive low attenuation in the bilateral inferior frontal and bilateral anterior temporal regions appears to involve cortex as well as deep white matter, so most likely represents encephalomalacia. There are also areas of encephalomalacia in the high bilateral parasagittal parietal regions, slightly larger on the right on the left. There is evidence of prior high parietal craniotomy. A lucency running along the sagittal suture along the vertex in an in the left frontal bone inferiorly is consistent with a fracture. In the parasagittal frontal region, on either side of the falx but predominately to the left of midline, there is a small subdural hematoma which measures 4 mm thick. There may be a small amount of blood tracking along the left side of the falx as well. These findings are unchanged. On the coronal images, there is suggestion of a small component of epidural blood. This appears unchanged No new hemorrhage. No acute edema. No mass effect or midline shift area otherwise normal zaragoza-white differentiation. There is a small amount of scalp soft tissue thickening superficial to the craniotomy defect. The remainder of the zaragoza-white differentiation is normal. Normal for age ventricles and extra-axial CSF spaces. There is right ethmoid and sphenoid sinus disease and possibly some frontal sinus disease incidentally noted. Impression: Evidence of prior high parietal midline craniotomy Extensive bilateral inferior frontal and anterior temporal encephalomalacia, as well as bilateral right greater than left high parietal encephalomalacia, suspect secondary to prior trauma, although possibly secondary to acute infarct Sagittal and left frontal minimally displaced ununited calvarial fracture. Morphology is suggestive of acute trauma, but acuity is nonetheless indeterminate given the other findings suggestive of prior trauma. Correlate with clinical history and findings Small acute anterior parasagittal subdural hematoma. This does not result in any significant mass effect, is unchanged. Presumably related to the calvarial fracture Evidence of some upper midline epidural blood. This may be acute or be related to prior surgery. No bleed, edema, or mass effect since prior study of 07/01/2016 Sinus disease incidentally noted The CT scanner at [facility] is accredited by the [employer] and the scans are performed using protocols designed to limit radiation exposure to as low as reasonably achievable to attain images of sufficient resolution adequate for diagnostic evaluation.
--- NOTE | 2016-07-03 11:53 | General Progress Note ---
Assessment/Plan Problem List: (1) Metabolic acidosis ICD Codes: E87.2 - Acidosis SNOMED: 60833444 (2) Ischemia of foot ICD Codes: I99.8 - Other disorder of circulatory system SNOMED: 231749062, 186318470 (3) Chronic kidney disease ICD Codes: N18.9 - Chronic kidney disease, unspecified SNOMED: 899851627 Qualifiers: Qualified Codes: N18.9 - Chronic kidney disease, unspecified (4) Anemia, chronic disease ICD Codes: D63.8 - Anemia in other chronic diseases classified elsewhere SNOMED: 301304874 (5) Encephalopathy ICD Codes: G93.40 - Encephalopathy, unspecified SNOMED: 47548809, 615531547 (6) Rhabdomyolysis ICD Codes: M62.82 - Rhabdomyolysis SNOMED: 094906222 (7) Sepsis ICD Codes: A41.9 - Sepsis, unspecified organism SNOMED: 48228140 Qualifiers: Qualified Codes: A41.9 - Sepsis, unspecified organism (8) Pneumonia ICD Codes: J18.9 - Pneumonia, unspecified organism SNOMED: 030092823 Qualifiers: Status: stable Assessment/Plan iv abx per id follow up cultures monitor cxr tylenol for fevers ngt feeds. GI eval. ?gt ivf pain rx monitor labs epo/iron rx wound care per podiatry repeat head ct recommended by radiology to follow up subdural Subjective ROS Limited/Unobtainable: Yes Constitutional: Reports: malaise, weakness HEENT: Reports: no symptoms Cardiovascular: Reports: no symptoms Respiratory: Reports: no symptoms Gastrointestinal/Abdominal: Reports: difficulty swallowing Genitourinary: Reports: no symptoms Neurologic/Psychiatric: Reports: pre-existing deficit Endocrine: Reports: no symptoms Hematologic/Lymphatic: Reports: no symptoms Allergies: Coded Allergies: No Known Allergies (Unverified , 05/30/16) All Systems: reviewed and negative except above Subjective s/p transmetatarsal amputation- bilateral. afterwards. more somnolent, tachycardic and febrile. temp and hr trending down. more alert but still failed swallow eval. ct re-read shows subacute skull fracture with subudral hematoma( probably old) ] Objective Last 24 Hour Vital Signs Date Time Temp Pulse Resp B/P Pulse Ox O2 Delivery O2 Flow Rate FiO2 07/03/16 11:37 97.7 88 20 147/90 97 Nasal Cannula 2.0 07/03/16 09:49 115 155/91 07/03/16 09:49 155/91 07/03/16 07:59 98.2 115 20 155/91 95 Nasal Cannula 2.0 07/03/16 07:58 Nasal Cannula 2.0 28 07/03/16 07:57 95 Nasal Cannula 2.0 28 07/03/16 07:20 114 07/03/16 04:00 105 07/03/16 04:00 98.2 102 18 131/51 95 Nasal Cannula 2.0 07/03/16 00:00 98 07/03/16 00:00 97.5 100 18 148/87 95 Room Air 07/02/16 20:00 97.3 95 18 130/90 91 Room Air 07/02/16 20:00 92 07/02/16 16:00 86 07/02/16 16:00 97.9 87 20 117/87 94 Room Air 07/02/16 12:00 97.8 97 18 130/81 97 Nasal Cannula 2.0 07/02/16 12:00 76 Intake and Output 07/02/16 07/03/16 19:00 07:00 Intake Total 1718.416 ml 1737.0 ml Output Total 1105 ml 1753 ml Balance 613.416 ml -16.0 ml Free Water 150 ml 150 ml IV Total 1128.416 ml 1427.0 ml Tube Feeding 440 ml 160 ml Output Urine Total 1100 ml 1750 ml Drainage Total 5 ml 3 ml # Bowel Movements 1 Laboratory Tests 07/03/16 06:25: White Blood Count 6.0, Red Blood Count 3.58L, Hemoglobin 8.3L, Hematocrit 27.8L , Mean Corpuscular Volume 78L, Mean Corpuscular Hemoglobin 23.2L, Mean Corpuscular Hemoglobin Concent 29.9L, Red Cell Distribution Width 20.2H, Platelet Count 298, Mean Platelet Volume 7.9, Neutrophils (%) (Auto) 60.1, Lymphocytes (%) (Auto) 29.4, Monocytes (%) (Auto) 6.0, Eosinophils (%) (Auto) 4.1H, Basophils (%) (Auto) 0.5, Sodium Level 139, Potassium Level 3.8, Chloride Level 98, Carbon Dioxide Level 28, Anion Gap 13, Blood Urea Nitrogen 6L, Creatinine 0.5L, Estimat Glomerular Filtration Rate > 60, Glucose Level 127H, Calcium Level 8.9, Total Bilirubin 0.3, Aspartate Amino Transf (AST/SGOT) 31, Alanine Aminotransferase (ALT/SGPT) 22, Alkaline Phosphatase 150H, Total Protein 7.1, Albumin 2.7L, Globulin 4.4, Albumin/Globulin Ratio 0.6L Height (Feet): 5 Height (Inches): 8.00 Weight (Pounds): 150 Objective Cardiovascular: regular rhythm Respiratory/Chest: rhonchi - bilaterally Abdomen: normal bowel sounds, non tender, soft, no organomegaly Edema: no edema noted Arm (L), no edema noted Arm (R), no edema noted Leg (L), no edema noted Leg (R), no edema noted Pedal (L), no edema noted Pedal (R), no edema noted Generalized Neurologic: responsive, disoriented Objective gangrene fingers right hand bilteral feet dressed DARYN JEREZ Jul 03, 2016 11:53
[2016-07-03] MEDS ORDERED: Influenza Virus Vaccine 0.5ml IM ONE (14:00)
[2016-07-03 16:00] VITALS: BP 139/86
--- NOTE | 2016-07-03 18:41 | Podiatric Progress Note ---
Assessment/Plan Patient Shoaib De Anda is a 56 year old male who was admitted on Jun 22, 2016 at 03:48 with sepsis Problems: (1) Ischemia of foot (2) Foot ulcer, left (3) Status post transmetatarsal amputation of left foot (4) Status post transmetatarsal amputation of right foot Assessment/Plan - Pulled bilateral foot ANGELO drains without complications - Incision sites to be covered with kerlix until raysa are removed - Will remove raysa 2 weeks after date of surgery - Okay to discharge patient from podiatry standpoint Subjective Day of Surgery: 06/26/16 Reason for consult Bilateral forefoot gangrene Procedure Performed Bilateral transmetatarsal amputation Allergies: Coded Allergies: No Known Allergies (Unverified , 05/30/16) Subjective Patient is unable to communicate effectively Objective Exam Last 24 Hour Vital Signs Date Time Temp Pulse Resp B/P Pulse Ox O2 Delivery O2 Flow Rate FiO2 07/03/16 16:00 97.7 94 20 139/86 93 Room Air 07/03/16 11:37 97.7 88 20 147/90 97 Nasal Cannula 2.0 07/03/16 11:28 89 07/03/16 09:49 115 155/91 07/03/16 09:49 155/91 07/03/16 07:59 98.2 115 20 155/91 95 Nasal Cannula 2.0 07/03/16 07:58 Nasal Cannula 2.0 28 07/03/16 07:57 95 Nasal Cannula 2.0 28 07/03/16 07:20 114 07/03/16 04:00 105 07/03/16 04:00 98.2 102 18 131/51 95 Nasal Cannula 2.0 07/03/16 00:00 98 07/03/16 00:00 97.5 100 18 148/87 95 Room Air 07/02/16 20:00 97.3 95 18 130/90 91 Room Air 07/02/16 20:00 92 Laboratory Tests Test 07/03/16 06:25 White Blood Count 6.0 K/UL (4.8-10.8) Red Blood Count 3.58 M/UL (4.70-6.10) L Hemoglobin 8.3 G/DL (14.2-18.0) L Hematocrit 27.8 % (42.0-52.0) L Mean Corpuscular Volume 78 FL (80-99) L Mean Corpuscular Hemoglobin 23.2 PG (27.0-31.0) L Mean Corpuscular Hemoglobin Concent 29.9 G/DL (32.0-36.0) L Red Cell Distribution Width 20.2 % (11.6-14.8) H Platelet Count 298 K/UL (150-450) Mean Platelet Volume 7.9 FL (6.5-10.1) Neutrophils (%) (Auto) 60.1 % (45.0-75.0) Lymphocytes (%) (Auto) 29.4 % (20.0-45.0) Monocytes (%) (Auto) 6.0 % (1.0-10.0) Eosinophils (%) (Auto) 4.1 % (0.0-3.0) H Basophils (%) (Auto) 0.5 % (0.0-2.0) Sodium Level 139 mEQ/L (135-145) Potassium Level 3.8 mEQ/L (3.4-4.9) Chloride Level 98 mEQ/L (98-107) Carbon Dioxide Level 28 mEQ/L (20-30) Anion Gap 13 (5-15) Blood Urea Nitrogen 6 mg/dL (7-23) L Creatinine 0.5 mg/dL (0.7-1.2) L Estimat Glomerular Filtration Rate > 60 mL/min (>60) Glucose Level 127 mg/dL (74-106) H Calcium Level 8.9 mg/dL (8.6-10.2) Total Bilirubin 0.3 mg/dL (0.0-1.2) Aspartate Amino Transf (AST/SGOT) 31 U/L (5-40) Alanine Aminotransferase (ALT/SGPT) 22 U/L (3-41) Alkaline Phosphatase 150 U/L (40-129) H Total Protein 7.1 g/dL (6.6-8.7) Albumin 2.7 g/dL (3.5-5.2) L Globulin 4.4 g/dL Albumin/Globulin Ratio 0.6 (1.0-2.7) L Microbiology Date/Time Source Procedure Growth Status 06/27/16 10:30 Blood Blood Culture - Final NO GROWTH AFTER 5 DAYS Complete 06/22/16 04:54 Nasal Nares MRSA Culture - Final Staphylococcus Aureus - Mrsa Complete 06/27/16 12:25 Indwelling Cath Urine Culture - Final NO GROWTH AFTER 48 HOURS Complete 06/22/16 14:30 Foot Left Gram Stain - Final Complete 06/22/16 14:30 Wound Culture - Final Enterococcus Faecalis Complete Exam Narrative Bilateral ANGELO drains with <5cc of serosanguineous drainage noted. Incision site is well coapted with raysa in tact. No drainage from incision site noted. Lang Klein DPM Jul 03, 2016 18:41
[2016-07-03 19:00] VITALS: BP 124/86
[2016-07-03] MEDS: Iron Sucrose 100 MG in NS 55 ML IVPB SCH (20:36)
[2016-07-03] MEDS: Epogen (for ESRD on dialysis) SUBQ SCH (20:44)
[2016-07-04] VITALS (8 sets, daily range): BP systolic 56–141; BP diastolic 33–90
--- NOTE | 2016-07-04 02:39 | Progress Note ---
CARDIOLOGY PROGRESS NOTE SUBJECTIVE: The patient remains withdrawn and lethargic at times. Repeat imaging of the brain is noted with evidence of subacute skull fracture and subdural hematoma, likely old. The patient is status post bilateral transmetatarsal amputations. He continues to have right upper extremity dry gangrene of the digits. OBJECTIVE: VITAL SIGNS: Afebrile, blood pressure 155/91, pulse 115, and respiratory rate 20. NECK: Supple. LUNGS: Clear. CARDIAC: Regular rhythm rate. Normal S1, S2 with a fourth heart sound. ABDOMEN: Soft. EXTREMITIES: Without edema. IMPRESSION: Serious condition, guarded prognosis. Concerns include a subdural hematoma and skull fracture with altered mentation, pneumonia, recovering sepsis and shock, peripheral artery disease with gangrene, diabetes mellitus with recent diabetic ketoacidosis, anemia, hypertensive heart disease, and secondary sinus tachycardia. PLAN: Consider neurologic evaluation. Consider gastrostomy tube. Continue antibiotics, respiratory hygiene, maintain beta-blockade and consider tighter blood pressure control if trend continues to increase. Morales Serrano M.D. DR: DOYLE JOB#: [id number] CC:
[2016-07-04] MEDS: Vancomycin 1 GM in D5W 275 ML IVPB SCH ×2 (04:28→17:54)
[2016-07-04] MEDS: Levemir Flexpen SUBQ SCH ×2 (06:50→17:59)
[2016-07-04] MEDS: NovoLOG Insulin Flexpen SUBQ SCH ×3 (06:53→17:56)
[2016-07-04] MEDS: Lisinopril 20mg tab ORAL SCH (09:00)
[2016-07-04] MEDS: levETIRAcetam 500 MG in D5W 110 ML IVPB SCH ×2 (09:04→22:25)
--- NOTE | 2016-07-04 09:09 | General Progress Note ---
Assessment/Plan Problem List: (1) Metabolic acidosis ICD Codes: E87.2 - Acidosis SNOMED: 04372602 (2) Ischemia of foot ICD Codes: I99.8 - Other disorder of circulatory system SNOMED: 543326307, 319308092 (3) Chronic kidney disease ICD Codes: N18.9 - Chronic kidney disease, unspecified SNOMED: 961410643 Qualifiers: Qualified Codes: N18.9 - Chronic kidney disease, unspecified (4) Anemia, chronic disease ICD Codes: D63.8 - Anemia in other chronic diseases classified elsewhere SNOMED: 324088324 (5) Encephalopathy ICD Codes: G93.40 - Encephalopathy, unspecified SNOMED: 30998966, 011821593 (6) Rhabdomyolysis ICD Codes: M62.82 - Rhabdomyolysis SNOMED: 567479105 (7) Sepsis ICD Codes: A41.9 - Sepsis, unspecified organism SNOMED: 75960690 Qualifiers: Qualified Codes: A41.9 - Sepsis, unspecified organism (8) Pneumonia ICD Codes: J18.9 - Pneumonia, unspecified organism SNOMED: 082440705 Qualifiers: Status: stable Assessment/Plan iv abx per id follow up cultures monitor cxr tylenol for fevers ngt feeds. GI eval. ?gt ivf pain rx monitor labs epo/iron rx wound care per podiatry family agrees to gt if fails repeat Subjective ROS Limited/Unobtainable: No Constitutional: Reports: malaise, weakness HEENT: Reports: no symptoms Cardiovascular: Reports: no symptoms Respiratory: Reports: no symptoms Gastrointestinal/Abdominal: Reports: difficulty swallowing Genitourinary: Reports: no symptoms Neurologic/Psychiatric: Reports: pre-existing deficit Endocrine: Reports: no symptoms Hematologic/Lymphatic: Reports: no symptoms Allergies: Coded Allergies: No Known Allergies (Unverified , 05/30/16) All Systems: reviewed and negative except above Subjective s/p transmetatarsal amputation- bilateral. afterwards. more somnolent, tachycardic and febrile. temp and hr trending down. more alert but still failed swallow eval. repeat head ct without change. awake but confused ] Objective Last 24 Hour Vital Signs Date Time Temp Pulse Resp B/P Pulse Ox O2 Delivery O2 Flow Rate FiO2 07/04/16 07:46 97.5 109 20 111/70 96 Nasal Cannula 2.0 07/04/16 04:00 98 07/04/16 04:00 97.7 98 16 133/90 94 Room Air 07/04/16 00:00 86 07/04/16 00:00 98.1 89 18 125/79 95 Room Air 07/03/16 20:45 98 130/85 07/03/16 20:00 101 07/03/16 19:00 94 Nasal Cannula 2.0 28 07/03/16 19:00 97.3 100 20 124/86 94 Room Air 07/03/16 19:00 Nasal Cannula 2.0 28 07/03/16 16:00 97.7 94 20 139/86 93 Room Air 07/03/16 16:00 89 07/03/16 11:37 97.7 88 20 147/90 97 Nasal Cannula 2.0 07/03/16 11:28 89 07/03/16 09:49 115 155/91 07/03/16 09:49 155/91 Intake and Output 07/03/16 07/04/16 19:00 07:00 Intake Total 1352.416 ml 1535.0 ml Output Total 1005 ml 1900 ml Balance 347.416 ml -365.0 ml Free Water 150 ml 300 ml IV Total 902.416 ml 575.0 ml Tube Feeding 300 ml 660 ml Output Urine Total 1000 ml 1900 ml Drainage Total 5 ml # Bowel Movements 1 2 Height (Feet): 5 Height (Inches): 8.00 Weight (Pounds): 150 Objective Cardiovascular: regular rhythm Respiratory/Chest: rhonchi - bilaterally Abdomen: normal bowel sounds, non tender, soft, no organomegaly Edema: no edema noted Arm (L), no edema noted Arm (R), no edema noted Leg (L), no edema noted Leg (R), no edema noted Pedal (L), no edema noted Pedal (R), no edema noted Generalized Neurologic: responsive, disoriented Objective gangrene fingers right hand bilteral feet dressed DARYN JEREZ Jul 04, 2016 09:09
[2016-07-04] MEDS: Multivitamin 5ml Liquid NG SCH (09:13)
[2016-07-04] MEDS: Docusate 100mg tablet NG SCH ×2 (09:13→17:52)
[2016-07-04] MEDS: Ascorbic Acid 500mg tab NG SCH (09:13)
[2016-07-04] MEDS: Metoprolol 50mg tab NG SCH ×2 (09:14→23:01)
--- NOTE | 2016-07-04 10:19 | Diagnostic Imaging Report ---
Indication: COUGH Technique: One view of the chest Comparison: 06/29/2016 Findings: Reason described interstitial prominence is less striking currently, may be on the basis of improved inspiration, but may indicate decreased interstitial congestion. No acute infiltrates. No effusions. Normal heart size. Prior CABG. Nasogastric tube is again demonstrated. Impression: Decreased interstitial prominence, may reflect improved interstitial congestion, over 5 days Other findings as noted
--- NOTE | 2016-07-04 10:46 | Infectious Diseases Prog Note ---
Assessment/Plan Assessment/Plan antibiotics : vancomycin iv A 1. 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 renal failure improving 3. MRSA sepsis recently 4. DM 5. fungal UTI s/p rx 6. subdural hematoma P 1. continue vancomycin iv 2. will follow up cultures Subjective ROS Limited/Unobtainable: Yes Allergies: Coded Allergies: No Known Allergies (Unverified , 05/30/16) Objective Vital Signs Last 24 Hour Vital Signs Date Time Temp Pulse Resp B/P Pulse Ox O2 Delivery O2 Flow Rate FiO2 07/04/16 09:14 106 111/70 07/04/16 09:00 111/70 07/04/16 07:51 Nasal Cannula 2.0 28 07/04/16 07:50 94 Nasal Cannula 2.0 28 07/04/16 07:46 97.5 109 20 111/70 96 Nasal Cannula 2.0 07/04/16 07:43 110 07/04/16 04:00 98 07/04/16 04:00 97.7 98 16 133/90 94 Room Air 07/04/16 00:00 86 07/04/16 00:00 98.1 89 18 125/79 95 Room Air 07/03/16 20:45 98 130/85 07/03/16 20:00 101 07/03/16 19:00 94 Nasal Cannula 2.0 28 07/03/16 19:00 97.3 100 20 124/86 94 Room Air 07/03/16 19:00 Nasal Cannula 2.0 28 07/03/16 16:00 97.7 94 20 139/86 93 Room Air 07/03/16 16:00 89 07/03/16 11:37 97.7 88 20 147/90 97 Nasal Cannula 2.0 07/03/16 11:28 89 Height (Feet): 5 Height (Inches): 8.00 Weight (Pounds): 150 Respiratory/Chest: lungs clear Cardiovascular: normal rate, regular rhythm, no gallop/murmur Abdomen: soft, non tender Extremities: no edema, other - stumps in dressings, right fingers necrotic COLTON GONZALEZ Jul 04, 2016 10:46
[2016-07-04] MEDS: Potassium Chloride 30 MEQ in 1/2 NS 1000ml 1,000 ML IV SCH (12:22)
--- NOTE | 2016-07-04 12:39 | Diagnostic Imaging Report ---
Indication: Evaluation of nasogastric tube Technique: Supine view of the abdomen Comparison: 07/02/2016 Findings: Nasogastric tube is again demonstrated, tip projecting at the level of the gastric body. The bowel gas pattern is unremarkable. No unusual masses or calcifications. Again demonstrated is an inferior vena cava filter Impression: Stable satisfactory position of nasogastric tube Other stable findings as described
[2016-07-04] MEDS ORDERED: NS 275ml ONE (16:26)
[2016-07-04] MEDS ORDERED: Sterile Water Irrig 1000ml IRRIG ONE (16:26)
[2016-07-04] MEDS ORDERED: Tubing IV Secondary IV ONE (16:26)
[2016-07-05] VITALS: BP 142/85
[2016-07-05] MEDS: NovoLOG Insulin Flexpen SUBQ SCH ×4 (00:20→17:20)
--- NOTE | 2016-07-05 01:38 | Progress Note ---
DATE: 07/04/2016 SUBJECTIVE: The patient is less congested. He continues on antibiotic and wound care. Feedings are by NG tube. OBJECTIVE: VITAL SIGNS: Afebrile, blood pressure 111/70, pulse 109, and respiratory rate 20. LUNGS: Bilateral breath sounds. HEART: Regular rhythm and rate. Normal S1 and S2. ABDOMEN: Soft. EXTREMITIES: No edema. Wound sites are dressed. Right hand with dry gangrene distally. LABORATORY DATA: Chest x-ray reveals improved aeration. IMPRESSION: 1. Status post bilateral transmetatarsal amputations. 2. Bilateral lower extremity gangrene, right upper extremity gangrene. 3. Hypertensive heart disease. 4. Secondary sinus tachycardia. 5. Insulin-requiring diabetes mellitus, status post diabetic ketoacidosis. 6. Anemia, multifactorial. PLAN: 1. Pain control, antibiotics, wound care. 2. Feedings by NG tube, may need G-tube. 3. Insulin titration. 4. Wound care. 5. Monitor volume status and diurese as needed. 6. May need to advance beta-michelle dosing as well based on clinical parameters if persistent rapid heart rates and elevated blood pressure trend. Morales Serrano M.D. DR: NANCY JOB#: [id number] CC:
[2016-07-05 04:00] VITALS: BP 145/84
[2016-07-05] MEDS: Vancomycin 1 GM in D5W 275 ML IVPB SCH ×2 (04:08→17:18)
[2016-07-05] MEDS: Potassium Chloride 30 MEQ in 1/2 NS 1000ml 1,000 ML IV SCH ×2 (04:08→21:53)
[2016-07-05] MEDS: Levemir Flexpen SUBQ SCH ×2 (07:53→17:21)
[2016-07-05 08:21] VITALS: BP 131/84
--- NOTE | 2016-07-05 08:46 | General Progress Note ---
Assessment/Plan Problem List: (1) Metabolic acidosis ICD Codes: E87.2 - Acidosis SNOMED: 97110490 (2) Ischemia of foot ICD Codes: I99.8 - Other disorder of circulatory system SNOMED: 212806023, 020979509 (3) Chronic kidney disease ICD Codes: N18.9 - Chronic kidney disease, unspecified SNOMED: 078608931 Qualifiers: Qualified Codes: N18.9 - Chronic kidney disease, unspecified (4) Anemia, chronic disease ICD Codes: D63.8 - Anemia in other chronic diseases classified elsewhere SNOMED: 110745638 (5) Encephalopathy ICD Codes: G93.40 - Encephalopathy, unspecified SNOMED: 58216465, 597210106 (6) Rhabdomyolysis ICD Codes: M62.82 - Rhabdomyolysis SNOMED: 582982418 (7) Sepsis ICD Codes: A41.9 - Sepsis, unspecified organism SNOMED: 60050410 Qualifiers: Qualified Codes: A41.9 - Sepsis, unspecified organism (8) Pneumonia ICD Codes: J18.9 - Pneumonia, unspecified organism SNOMED: 780474440 Qualifiers: Status: stable, progressing Assessment/Plan iv abx per id tylenol for fevers gi eval for gt pending ivf pain rx monitor labs epo/iron rx wound care per podiatry family agrees to gt duplex results reviewed with sister. too high risks for AC. bleeding problems and pt is jehovah witness Subjective ROS Limited/Unobtainable: No Constitutional: Reports: no symptoms HEENT: Reports: no symptoms Cardiovascular: Reports: no symptoms Respiratory: Reports: no symptoms Gastrointestinal/Abdominal: Reports: difficulty swallowing Genitourinary: Reports: no symptoms Neurologic/Psychiatric: Reports: pre-existing deficit Endocrine: Reports: no symptoms Hematologic/Lymphatic: Reports: no symptoms Allergies: Coded Allergies: No Known Allergies (Unverified , 05/30/16) All Systems: reviewed and negative except above Subjective no events. failed repeat swallow eval yesterday. d/w sister. ok with gt. repeat duplex with dvt. has ivc filter. had bleeding and anemia problems on anticoag. ] Objective Last 24 Hour Vital Signs Date Time Temp Pulse Resp B/P Pulse Ox O2 Delivery O2 Flow Rate FiO2 07/05/16 08:21 97.9 103 20 131/84 97 Nasal Cannula 2.0 07/05/16 04:00 98.1 95 20 145/84 95 Nasal Cannula 2.0 07/05/16 03:28 94 07/05/16 00:00 96.8 100 20 142/85 92 Nasal Cannula 2.0 07/04/16 23:55 91 07/04/16 23:01 68 141/82 07/04/16 22:46 68 18 141/82 96 Room Air 07/04/16 21:00 95 Nasal Cannula 2.0 28 07/04/16 21:00 Nasal Cannula 2.0 28 07/04/16 20:00 99 07/04/16 20:00 98.4 96 18 56/33 96 Room Air 07/04/16 16:00 95 07/04/16 16:00 98.1 94 20 130/77 Nasal Cannula 2.0 95 07/04/16 11:46 97.5 90 20 127/78 97 Nasal Cannula 2.0 07/04/16 11:44 88 07/04/16 09:14 106 111/70 07/04/16 09:00 111/70 Intake and Output 07/04/16 07/05/16 19:00 07:00 Intake Total 1052 ml 1993.0 ml Output Total 700 ml 2200 ml Balance 352 ml -207.0 ml Free Water 0 ml 150 ml IV Total 682 ml 1623.0 ml Tube Feeding 220 ml 220 ml Blood Product 150 ml Output Urine Total 700 ml 2200 ml Height (Feet): 5 Height (Inches): 8.00 Weight (Pounds): 150 Objective Cardiovascular: regular rhythm Respiratory/Chest: rhonchi - bilaterally Abdomen: normal bowel sounds, non tender, soft, no organomegaly Edema: no edema noted Arm (L), no edema noted Arm (R), no edema noted Leg (L), no edema noted Leg (R), no edema noted Pedal (L), no edema noted Pedal (R), no edema noted Generalized Neurologic: responsive, disoriented Objective gangrene fingers right hand bilteral feet dressed DARYN JEREZ Jul 05, 2016 08:46
[2016-07-05] MEDS: Lisinopril 20mg tab ORAL SCH (09:00)
[2016-07-05] MEDS: Metoprolol 50mg tab NG SCH ×2 (09:00→21:00)
[2016-07-05] MEDS: Docusate 100mg tablet NG SCH ×2 (09:00→17:09)
[2016-07-05] MEDS: Multivitamin 5ml Liquid NG SCH (09:00)
[2016-07-05] MEDS: Ascorbic Acid 500mg tab NG SCH (09:00)
--- NOTE | 2016-07-05 09:56 | General Progress Note ---
Assessment/Plan Assessment/Plan GI Consult Dictated Will place PEG in am Thank you Molly Mendoza MD Subjective Allergies: Coded Allergies: No Known Allergies (Unverified , 05/30/16) Objective Last 24 Hour Vital Signs Date Time Temp Pulse Resp B/P Pulse Ox O2 Delivery O2 Flow Rate FiO2 07/05/16 08:21 97.9 103 20 131/84 97 Nasal Cannula 2.0 07/05/16 07:48 Nasal Cannula 2.0 28 07/05/16 07:47 95 Nasal Cannula 2.0 28 07/05/16 04:00 98.1 95 20 145/84 95 Nasal Cannula 2.0 07/05/16 03:28 94 07/05/16 00:00 96.8 100 20 142/85 92 Nasal Cannula 2.0 07/04/16 23:55 91 07/04/16 23:01 68 141/82 07/04/16 22:46 68 18 141/82 96 Room Air 07/04/16 21:00 95 Nasal Cannula 2.0 28 07/04/16 21:00 Nasal Cannula 2.0 28 07/04/16 20:00 99 07/04/16 20:00 98.4 96 18 56/33 96 Room Air 07/04/16 16:00 95 07/04/16 16:00 98.1 94 20 130/77 Nasal Cannula 2.0 95 07/04/16 11:46 97.5 90 20 127/78 97 Nasal Cannula 2.0 07/04/16 11:44 88 Intake and Output 07/04/16 07/05/16 19:00 07:00 Intake Total 1052 ml 1993.0 ml Output Total 700 ml 2200 ml Balance 352 ml -207.0 ml Free Water 0 ml 150 ml IV Total 682 ml 1623.0 ml Tube Feeding 220 ml 220 ml Blood Product 150 ml Output Urine Total 700 ml 2200 ml Height (Feet): 5 Height (Inches): 8.00 Weight (Pounds): 150 MOLLY MENDOZA Jul 05, 2016 09:56
[2016-07-05] MEDS: levETIRAcetam 500 MG in D5W 110 ML IVPB SCH ×2 (10:55→21:53)
--- NOTE | 2016-07-05 12:06 | Infectious Diseases Prog Note ---
Assessment/Plan Assessment/Plan A 1. bilateral feet and right fingers gangrene 2. renal failure improving 3. MRSA sepsis recently 4. DM 5. left frontal bone fracture, subdural hematoma 6. Post operative fever 7. s/p bilateral transmetatarsal amputation P 1. continue Vancomycin Subjective ROS Limited/Unobtainable: Yes Neurologic: Reports: confusion, other - on restraint Allergies: Coded Allergies: No Known Allergies (Unverified , 05/30/16) Objective Vital Signs Last 24 Hour Vital Signs Date Time Temp Pulse Resp B/P Pulse Ox O2 Delivery O2 Flow Rate FiO2 07/05/16 08:21 97.9 103 20 131/84 97 Nasal Cannula 2.0 07/05/16 07:48 Nasal Cannula 2.0 28 07/05/16 07:47 95 Nasal Cannula 2.0 28 07/05/16 04:00 98.1 95 20 145/84 95 Nasal Cannula 2.0 07/05/16 03:28 94 07/05/16 00:00 96.8 100 20 142/85 92 Nasal Cannula 2.0 07/04/16 23:55 91 07/04/16 23:01 68 141/82 07/04/16 22:46 68 18 141/82 96 Room Air 07/04/16 21:00 95 Nasal Cannula 2.0 28 07/04/16 21:00 Nasal Cannula 2.0 28 07/04/16 20:00 99 07/04/16 20:00 98.4 96 18 56/33 96 Room Air 07/04/16 16:00 95 07/04/16 16:00 98.1 94 20 130/77 Nasal Cannula 2.0 95 Height (Feet): 5 Height (Inches): 8.00 Weight (Pounds): 150 General Appearance: no acute distress HEENT: mucous membranes moist Respiratory/Chest: lungs clear Cardiovascular: normal rate Abdomen: soft, non tender Extremities: other - mild edema of left leg Skin: other - bilteral feet surgical dressing, R hand fingers gangrene Neurologic/Psychiatric: alert, disoriented Current Medications Medications (Trade) Dose Ordered Sig/Mateo Route PRN Reason Start Time Stop Time Status Last Admin Dose Admin Acetaminophen (Tylenol) 650 mg PRN PRN NG Mild Pain/Temp > 100.5 06/27/16 06:30 07/27/16 06:29 06/29/16 04:22 Acetaminophen (Tylenol) 650 mg Q4H PRN NG Prn Headache/Temp > 101 06/28/16 14:36 07/26/16 17:29 Acetaminophen (Tylenol) 650 mg Q4H PRN RECTAL Mild Pain (Pain Scale 1-3) 06/26/16 17:30 07/26/16 17:29 06/27/16 05:17 Ascorbic Acid (Vitamin C) 500 mg DAILY NG 06/28/16 11:00 07/28/16 10:59 07/04/16 09:13 Dextrose (Dextrose 50%) STAT PRN IV Hypoglycemia 06/26/16 20:30 07/26/16 20:29 Docusate Sodium 100 mg 100 mg BID NG 06/30/16 20:00 07/30/16 19:59 07/04/16 09:13 Epoetin Zia (Procrit (for ESRD on dialysis)) 10,000 units SUN-SUN-SUN SUBQ 06/26/16 21:00 07/26/16 20:59 07/03/16 20:44 Insulin Aspart (NovoLOG) EVERY 6 HOURS SUBQ 06/29/16 12:00 07/29/16 11:59 07/05/16 07:06 Insulin Detemir (Levemir) 5 units Q12HR@0600,1800 SUBQ 06/29/16 18:00 07/29/16 17:59 07/05/16 07:53 Levetiracetam/ Dextrose (Keppra/D5W) 115 ml @ 460 mls/hr Q12HR IVPB 06/27/16 01:30 07/27/16 01:29 07/05/16 10:55 Lisinopril (Prinivil) 20 mg DAILY ORAL 06/27/16 09:00 07/27/16 08:59 07/03/16 09:49 Metoprolol Tartrate (Lopressor) 50 mg Q12HR NG 06/30/16 21:00 07/30/16 20:59 07/04/16 23:01 Multivitamins (Multivitamin Hexavitamin) 5 ml DAILY NG 06/28/16 11:00 07/28/16 10:59 07/04/16 09:13 Potassium Chloride/Sodium Chloride (KCl/0.45% NS 1000ml) 1,015 ml @ 60 mls/hr [id number] IV 06/26/16 17:30 07/26/16 17:29 07/05/16 04:08 Sennosides (Senokot) 8.6 mg DAILY NG 06/28/16 14:36 07/27/16 08:59 07/04/16 09:13 Vancomycin HCl 1 ea 1 ea DAILY PRN MISC PRN RX PROTOCOL 06/26/16 17:30 07/26/16 17:29 Vancomycin HCl/ Dextrose (Vancomycin/D5W) 275 ml @ 183.708 mls/hr Q12HR@0400,1600 IVPB 07/03/16 16:00 07/09/16 17:30 07/05/16 04:08 DE REILLY Jul 05, 2016 12:06
[2016-07-05 12:10] VITALS: BP 122/82
--- NOTE | 2016-07-05 12:58 | Wound Care Consultation ---
Wound Assessment Wound Assessment #1: Wound Number: #1 Wound Present on Admission: Yes New Wound: No Status Change of Wound: No Wound Location Body Site Modif: mid Wound Location Body Site: sacral Wound Type: pressure ulcer - resolved .100% epithial closure. Trista Test: Does not Trista Wound Thickness: Full Thickness - scar tissue Wound Drainage Amount: None Wound Drainage Odor: None/Absent Tissue Surrounding Wound: Intact Wound General Appearance: Open to air Wound Assessment #2: Wound Number: #2 Wound Present on Admission: Yes New Wound: No Status Change of Wound: Yes - s/p amputation. Wound Location Body Site Modif: left Wound Location Body Site: other - transmetatarsal Wound Type: other - s/p amputation Wound Assessment #3: Wound Number: #3 Wound Present on Admission: Yes New Wound: No Status Change of Wound: No Wound Location Body Site Modif: right Wound Location Body Site: other - transmetatarsal Wound Type: other - s/p amputation Wound Assessment #4: Wound Number: #4 Wound Present on Admission: Yes New Wound: No Status Change of Wound: No Wound Location Body Site Modif: right, other - tip Wound Location Body Site: finger - 2nd,3rd and 4th , resolving right 5th pinky Wound Type: other - acute ischemia Trista Test: Does not Trista Wound Thickness: Full Thickness Percent of Wound Black/Brown: 100 Wound Drainage Amount: None Wound Drainage Odor: None/Absent Wound General Appearance: Necrotic Wound Comment #1 Mid sacral stage III RESOLVED. #2 Acute ischemia to right 2nd,3rd,4th finger , noted 5th pinky ischemia resolving. right thumb ischemia noted resolved. #3 Left toes s/p amputation- wound care per podiatry order. #4 Right toes s/p amputation- wound care per podiatry order. Recommendation -Follow recommendation from podiatry for s/p amputation. -Follow wound care as ordered per MD. -Keep clean and dry. -Optimize Nutrition. -Offload both lower extremity. -Assess and follow up with MD for any changes of condition. DIANE MATAMOROS Jul 05, 2016 12:58
[2016-07-05 16:00] VITALS: BP 127/78
--- NOTE | 2016-07-05 16:12 | Diagnostic Imaging Report ---
APPROVED REPORT CPT Code: 65210 Past History DVT :BilateralDate : 06/09/2016 RIGHT LEG: Venous imaging reveals acute thrombus in the common femoral to the calf veins. Greater saphenous vein is within normal limits. LEFT LEG: Venous imaging reveals acute thrombus in the superficial femoral to the calf veins. Remainder of the deep venous system within normal limits. No evidence of thrombus in the common femoral vein. Greater saphenous vein is also within normal limits. RN August was notified of abnormal results at 1530 hours.
[2016-07-05 20:00] VITALS: BP 142/75
[2016-07-05] MEDS: Epogen (for ESRD on dialysis) SUBQ SCH (21:53)
--- NOTE | 2016-07-05 23:48 | Consultation ---
DATE OF CONSULTATION: 07/05/2016 NOTE: POOR INAUDIBLE AUDIO QUALITY GASTROLOGY CONSULTATION CHIEF COMPLAINT: I was asked to see this patient by Dr. Raul Del Cid for evaluation of dysphagia and abnormal liver tests. HISTORY OF PRESENT ILLNESS: The patient is an unfortunate 56-year-old man with a history of encephalopathy and peripheral vascular disease, who was admitted for fever and sepsis last month. He has had a prolonged hospital stay and treated with antibiotics. He has been unable to eat by mouth and therefore nasogastric tube has been placed nutrition consultation was requested for a gastrostomy tube placement. The indications, risks, alternatives, and possible complications of the procedure were explained to the patient's family. Informed consent was obtained. In the meantime, the patient also has a mild degree of abnormal alkaline phosphatase of unclear etiology. There is no chart history of liver disease. PAST MEDICAL HISTORY: History of acute acidosis, status post foot amputation, peripheral vascular disease, encephalopathy, diabetes, hypertension, and bedbound state. PAST SURGICAL HISTORY: Status post IVC filter placement, status post bilateral foot amputation, and status post chest surgery. ALLERGIES: None. MEDICATIONS: See chart list for details. FAMILY HISTORY: Noncontributory. SOCIAL HISTORY: The patient does not smoke or drink alcohol at this time. REVIEW OF SYSTEMS: Otherwise negative. PHYSICAL EXAMINATION: GENERAL: Debilitated, man, seen in his room. HEENT: Normocephalic and atraumatic. Nasogastric tube has recently been pulled out. NECK: Supple. CHEST: Clear to auscultation. CARDIOVASCULAR: Regular rate. ABDOMEN: Soft. Good bowel sounds. Santos catheter was in place. EXTREMITIES: Bilateral foot amputation. NEUROLOGIC: Notable for encephalopathy. LABORATORY DATA: Noted. ASSESSMENT: This patient has significant degree of encephalopathy and he is unable eat adequate calories by mouth. The patient is a good candidate for gastrostomy tube placement for nutrition. Once the patient has improved then another trial for evaluation for swallow and feeding can be made. The family did agreed to gastrostomy tube placement, which will be done tomorrow. The patient also has some mild . This may be liver or more likely . The patient does have amputation these will be evaluated and his liver tests will be followed will also be done in next few days. RECOMMENDATIONS: Per above discussion and per orders written in the chart. Thank you for asking me to participate in the care of this patient. Molly Mendoza M.D. DR: JUAN JOB#: [id number] CC:
[2016-07-06] VITALS (10 sets, daily range): BP systolic 119–146; BP diastolic 71–97
--- NOTE | 2016-07-06 03:28 | Progress Note ---
DATE: 07/05/2016 CARDIOLOGY PROGRESS NOTE SUBJECTIVE: The patient continues to be withdrawn and lethargic. Intake by mouth is not possible due to aspiration risk. GI consult is appreciated and G-tube placement is planned. The patient is a [employer]. He is not on anticoagulation despite an abnormal venous duplex study. The patient has not had any chest pain, and his monitored rhythm remains sinus with no arrhythmias. OBJECTIVE: VITAL SIGNS: Blood pressure of 131/84, pulse 103, respirations 20, and afebrile. LUNGS: Bilateral breath sounds with no wheezing. HEART: Regular rhythm and rate. Normal S1 and S2. ABDOMEN: Soft and nontender. No edema. EXTREMITIES: Right hand with dry gangrene of the digits, bilateral feet dressing in place for transmetatarsal site of amputation. LABORATORY DATA: No labs today. IMPRESSION: 1. Peripheral artery disease, status post bilateral transmetatarsal amputations. 2. Gangrene, right upper extremity, digits. 3. Status post sepsis with shock. 4. Rhabdomyolysis, resolved. 5. Metabolic acidosis, improved. 6. Insulin-requiring diabetes mellitus. 7. Status post diabetic ketoacidosis. 8. Secondary sinus tachycardia. 9. Anemia. PLAN: 1. Hydration. 2. Insulin coverage. 3. G-tube placement for nutrition. 4. Wound care. 5. Iron and Epogen. 6. No anticoagulation. 7. Recheck lab studies. Morales Serrano M.D. DR: PAYAM JOB#: [id number] CC:
[2016-07-06] MEDS: Vancomycin 1 GM in D5W 275 ML IVPB SCH ×2 (04:25→16:45)
[2016-07-06] MEDS: NovoLOG Insulin Flexpen SUBQ SCH ×4 (06:00→17:07)
[2016-07-06 06:13] LABS: INR 1.1 (0.9-1.1); PROTHROMBIN TIME 10.7 SEC (9.30-11.50)
[2016-07-06] MEDS: Levemir Flexpen SUBQ SCH ×2 (06:42→17:14)
[2016-07-06 07:50] LABS: ALANINE AMINOTRANSFERASE 14 U/L (3-41); ALBUMIN/GLOBULIN RATIO 0.5 (1.0-2.7); ANION GAP 15 (5-15); ASPARTATE AMINO TRANSFERASE 24 U/L (5-40); BASOPHILS % (AUTO) 0.5 % (0.0-2.0); CALCIUM 9.3 mg/dL (8.6-10.2); CARBON DIOXIDE 26 mEQ/L (20-30); CHLORIDE 92 mEQ/L (98-107); CREATININE 0.6 mg/dL (0.7-1.2); EOSINOPHILS % (AUTO) 2.8 % (0.0-3.0); GLOMERULAR FILTRATION RATE > 60 mL/min (>60); HEMOLYSIS 2; MAGNESIUM 1.6 mg/dL (1.7-2.5); MEAN CORPUSCULAR HEMOGLOBIN 22.9 PG (27.0-31.0); MEAN CORPUSCULAR HGB CONC 29.8 G/DL (32.0-36.0); MEAN CORPUSCULAR VOLUME 77 FL (80-99); MEAN PLATELET VOLUME 7.5 FL (6.5-10.1); MONOCYTES % (AUTO) 10.3 % (1.0-10.0); NEUTROPHILS % (AUTO) 69.4 % (45.0-75.0); PLATELET COUNT 339 K/UL (150-450); POTASSIUM 4.1 mEQ/L (3.4-4.9); RED BLOOD COUNT 3.99 M/UL (4.70-6.10); RED CELL DISTRIBUTION WIDTH 20.1 % (11.6-14.8); SODIUM 133 mEQ/L (135-145); WHITE BLOOD COUNT 6.5 K/UL (4.8-10.8)
[2016-07-06] MEDS ORDERED: NS 550ML IV ONE (07:55)
[2016-07-06] MEDS ORDERED: Propofol 10mg/ml 20ml IV ONE (08:00)
[2016-07-06] MEDS ORDERED: Lidocaine 1% MPF 10mg/ml 5ml ONE (08:00)
--- NOTE | 2016-07-06 08:07 | General Progress Note ---
Assessment/Plan Problem List: (1) Metabolic acidosis ICD Codes: E87.2 - Acidosis SNOMED: 93164764 (2) Ischemia of foot ICD Codes: I99.8 - Other disorder of circulatory system SNOMED: 749042586, 957574685 (3) Chronic kidney disease ICD Codes: N18.9 - Chronic kidney disease, unspecified SNOMED: 339073884 Qualifiers: Qualified Codes: N18.9 - Chronic kidney disease, unspecified (4) Anemia, chronic disease ICD Codes: D63.8 - Anemia in other chronic diseases classified elsewhere SNOMED: 870017801 (5) Encephalopathy ICD Codes: G93.40 - Encephalopathy, unspecified SNOMED: 55194967, 697595290 (6) Rhabdomyolysis ICD Codes: M62.82 - Rhabdomyolysis SNOMED: 220511665 (7) Sepsis ICD Codes: A41.9 - Sepsis, unspecified organism SNOMED: 21109618 Qualifiers: Qualified Codes: A41.9 - Sepsis, unspecified organism (8) Pneumonia ICD Codes: J18.9 - Pneumonia, unspecified organism SNOMED: 153060457 Qualifiers: Status: stable, progressing Assessment/Plan for egd and peg today ivf wound care abx per id dc planning tomorrow if tolerating feeds Subjective ROS Limited/Unobtainable: Yes Constitutional: Reports: malaise, weakness HEENT: Reports: no symptoms Cardiovascular: Reports: no symptoms Respiratory: Reports: no symptoms Gastrointestinal/Abdominal: Reports: difficulty swallowing Genitourinary: Reports: no symptoms Neurologic/Psychiatric: Reports: pre-existing deficit Endocrine: Reports: no symptoms Hematologic/Lymphatic: Reports: anemia Allergies: Coded Allergies: No Known Allergies (Unverified , 05/30/16) All Systems: reviewed and negative except above Subjective no events. going down for egd and peg today. alert but confused. failed multiple swallow tests. ] Objective Last 24 Hour Vital Signs Date Time Temp Pulse Resp B/P Pulse Ox O2 Delivery O2 Flow Rate FiO2 07/06/16 04:00 98.0 109 20 119/78 96 Nasal Cannula 2.0 07/06/16 04:00 107 07/06/16 00:17 97.0 100 20 141/97 97 Nasal Cannula 2.0 07/06/16 00:00 99 07/05/16 21:00 94 142/75 07/05/16 20:00 100 2/8/17 20:00 97.3 94 19 142/75 Nasal Cannula 2.0 94 07/05/16 19:05 98 Nasal Cannula 2.0 28 07/05/16 19:05 Nasal Cannula 2.0 28 07/05/16 16:00 98.2 102 18 127/78 99 Room Air 07/05/16 16:00 103 07/05/16 12:10 97.9 105 20 122/82 96 Nasal Cannula 2.0 07/05/16 08:21 97.9 103 20 131/84 97 Nasal Cannula 2.0 Intake and Output 07/05/16 07/06/16 19:00 07:00 Intake Total 485 ml 900.0 ml Output Total 700 ml 1600 ml Balance -215 ml -700.0 ml IV Total 485 ml 900.0 ml Output Urine Total 700 ml 1600 ml Laboratory Tests 07/05/16 15:30: Vancomycin Level Trough 14.6H 07/06/16 05:15: White Blood Count 6.5, Red Blood Count 3.99L, Hemoglobin 9.1L, Hematocrit 30.7L , Mean Corpuscular Volume 77L, Mean Corpuscular Hemoglobin 22.9L, Mean Corpuscular Hemoglobin Concent 29.8L, Red Cell Distribution Width 20.1H, Platelet Count 339, Mean Platelet Volume 7.5, Neutrophils (%) (Auto) 69.4, Lymphocytes (%) (Auto) 17.0L, Monocytes (%) (Auto) 10.3H, Eosinophils (%) (Auto ) 2.8, Basophils (%) (Auto) 0.5, Prothrombin Time 10.7, Prothromb Time International Ratio 1.1, Activated Partial Thromboplast Time 31, Sodium Level 133L, Potassium Level 4.1, Chloride Level 92L, Carbon Dioxide Level 26, Anion Gap 15, Blood Urea Nitrogen 6L, Creatinine 0.6L, Estimat Glomerular Filtration Rate > 60, Glucose Level 116H, Calcium Level 9.3, Magnesium Level 1.6L, Total Bilirubin 0.6, Gamma Glutamyl Transpeptidase 39, Aspartate Amino Transf (AST/ SGOT) 24, Alanine Aminotransferase (ALT/SGPT) 14, Alkaline Phosphatase 141H, Pro -B-Type Natriuretic Peptide 516H, Total Protein 8.0, Albumin 2.9L, Globulin 5.1 , Albumin/Globulin Ratio 0.5L, Vitamin D 25-Hydroxy [Pending], 25-Hydroxy Vitamin D2 [Pending], 25-Hydroxy Vitamin D3 [Pending] Height (Feet): 5 Height (Inches): 8.00 Weight (Pounds): 150 Objective Cardiovascular: regular rhythm Respiratory/Chest: rhonchi - bilaterally Abdomen: normal bowel sounds, non tender, soft, no organomegaly Edema: no edema noted Arm (L), no edema noted Arm (R), no edema noted Leg (L), no edema noted Leg (R), no edema noted Pedal (L), no edema noted Pedal (R), no edema noted Generalized Neurologic: responsive, disoriented Objective gangrene fingers right hand bilteral feet dressed DARYN JEREZ Jul 06, 2016 08:07
[2016-07-06] MEDS ORDERED: Ketorolac 30mg Inj IV PRN (08:30)
[2016-07-06] MEDS ORDERED: fentaNYL 100 mcg/2 mL IV PRN (08:30)
[2016-07-06] MEDS ORDERED: Norco 5mg/325mg tab ORAL PRN (08:30)
[2016-07-06] MEDS ORDERED: Hydromorphone 0.5mg/0.5ml inj IVP PRN (08:30)
--- NOTE | 2016-07-06 08:30 | Anethesia Preoperative Eval ---
Anesthesia Pre-op PMH/ROS General Date of Evaluation: Jul 06, 2016 Time of Evaluation: 08:00 Anesthesiologist: Zaid ASA Score: ASA 4 Mallampati Score Class I : Soft palate, uvula, fauces, pillars visible Class II: Soft palate, uvula, fauces visible Class III: Soft palate, base of uvula visible Class IV: Only hard plate visible Mallampati Classification: Class II Surgeon: Monica Diagnosis: Dyphagia Surgical Procedure: Peg Tube placemnt Anesthesia History: none Family History: no anesthesia problems Allergies: Coded Allergies: No Known Allergies (Unverified , 05/30/16) Past Medical History Cardiovascular: Reports: CAD, HTN Pulmonary: Reports: COPD, other - pneumonia Gastrointestinal/Genitourinary: Reports: CRI Neurologic/Psychiatric: Reports: dementia Endocrine: Reports: DM Hematology/Immune: Reports: anemia Musculoskeletal/Integumentary: Reports: DJD Anesthesia Pre-op Phys. Exam Physician Exam Last Vital Signs Date Time Temp Pulse Resp B/P Pulse Ox O2 Delivery O2 Flow Rate FiO2 07/06/16 07:25 97.0 118 20 146/83 95 Nasal Cannula 2.0 07/05/16 20:00 94 Cardiovascular: other - tachy Respiratory: other - sistant Airway Exam Mallampati Score: Class II Anesthesia Pre-op A/P Labs Hematology Test 07/06/16 05:15 White Blood Count 6.5 K/UL (4.8-10.8) Red Blood Count 3.99 M/UL (4.70-6.10) L Hemoglobin 9.1 G/DL (14.2-18.0) L Hematocrit 30.7 % (42.0-52.0) L Mean Corpuscular Volume 77 FL (80-99) L Mean Corpuscular Hemoglobin 22.9 PG (27.0-31.0) L Mean Corpuscular Hemoglobin Concent 29.8 G/DL (32.0-36.0) L Red Cell Distribution Width 20.1 % (11.6-14.8) H Platelet Count 339 K/UL (150-450) Mean Platelet Volume 7.5 FL (6.5-10.1) Neutrophils (%) (Auto) 69.4 % (45.0-75.0) Lymphocytes (%) (Auto) 17.0 % (20.0-45.0) L Monocytes (%) (Auto) 10.3 % (1.0-10.0) H Eosinophils (%) (Auto) 2.8 % (0.0-3.0) Basophils (%) (Auto) 0.5 % (0.0-2.0) Coagulation Test 07/06/16 05:15 Prothrombin Time 10.7 SEC (9.30-11.50) Prothromb Time International Ratio 1.1 (0.9-1.1) Activated Partial Thromboplast Time 31 SEC (23-33) Chemistry Test 07/06/16 05:15 Sodium Level 133 mEQ/L (135-145) L Potassium Level 4.1 mEQ/L (3.4-4.9) Chloride Level 92 mEQ/L (98-107) L Carbon Dioxide Level 26 mEQ/L (20-30) Anion Gap 15 (5-15) Blood Urea Nitrogen 6 mg/dL (7-23) L Creatinine 0.6 mg/dL (0.7-1.2) L Estimat Glomerular Filtration Rate > 60 mL/min (>60) Glucose Level 116 mg/dL (74-106) H Calcium Level 9.3 mg/dL (8.6-10.2) Magnesium Level 1.6 mg/dL (1.7-2.5) L Total Bilirubin 0.6 mg/dL (0.0-1.2) Gamma Glutamyl Transpeptidase 39 U/L (8-61) Aspartate Amino Transf (AST/SGOT) 24 U/L (5-40) Alanine Aminotransferase (ALT/SGPT) 14 U/L (3-41) Alkaline Phosphatase 141 U/L (40-129) H Pro-B-Type Natriuretic Peptide 516 pg/mL (0-125) H Total Protein 8.0 g/dL (6.6-8.7) Albumin 2.9 g/dL (3.5-5.2) L Globulin 5.1 g/dL Albumin/Globulin Ratio 0.5 (1.0-2.7) L Vitamin D 25-Hydroxy Pending 25-Hydroxy Vitamin D2 Pending 25-Hydroxy Vitamin D3 Pending PAO NAVARRETE M.D. Jul 06, 2016 08:30
--- NOTE | 2016-07-06 08:35 | General Progress Note ---
Assessment/Plan Assessment/Plan Assessment - Dysphagia - Anemia - low Magnesium - PVD / amputation - Elevated Alk phos / nl GGT Recommendation - Replace Mg - NPO - PEG today Subjective Allergies: Coded Allergies: No Known Allergies (Unverified , 05/30/16) Subjective Debilitated minimally interactive labs noted Objective Last 24 Hour Vital Signs Date Time Temp Pulse Resp B/P Pulse Ox O2 Delivery O2 Flow Rate FiO2 07/06/16 07:25 97.0 118 20 146/83 95 Nasal Cannula 2.0 07/06/16 04:00 98.0 109 20 119/78 96 Nasal Cannula 2.0 07/06/16 04:00 107 07/06/16 00:17 97.0 100 20 141/97 97 Nasal Cannula 2.0 07/06/16 00:00 99 07/05/16 21:00 94 142/75 07/05/16 20:00 100 07/05/16 20:00 97.3 94 19 142/75 Nasal Cannula 2.0 94 07/05/16 19:05 98 Nasal Cannula 2.0 28 07/05/16 19:05 Nasal Cannula 2.0 28 07/05/16 16:00 98.2 102 18 127/78 99 Room Air 07/05/16 16:00 103 07/05/16 12:10 97.9 105 20 122/82 96 Nasal Cannula 2.0 Intake and Output 07/05/16 07/06/16 19:00 07:00 Intake Total 485 ml 900.0 ml Output Total 700 ml 1600 ml Balance -215 ml -700.0 ml IV Total 485 ml 900.0 ml Output Urine Total 700 ml 1600 ml Laboratory Tests 07/05/16 15:30: Vancomycin Level Trough 14.6H 07/06/16 05:15: White Blood Count 6.5, Red Blood Count 3.99L, Hemoglobin 9.1L, Hematocrit 30.7L , Mean Corpuscular Volume 77L, Mean Corpuscular Hemoglobin 22.9L, Mean Corpuscular Hemoglobin Concent 29.8L, Red Cell Distribution Width 20.1H, Platelet Count 339, Mean Platelet Volume 7.5, Neutrophils (%) (Auto) 69.4, Lymphocytes (%) (Auto) 17.0L, Monocytes (%) (Auto) 10.3H, Eosinophils (%) (Auto ) 2.8, Basophils (%) (Auto) 0.5, Prothrombin Time 10.7, Prothromb Time International Ratio 1.1, Activated Partial Thromboplast Time 31, Sodium Level 133L, Potassium Level 4.1, Chloride Level 92L, Carbon Dioxide Level 26, Anion Gap 15, Blood Urea Nitrogen 6L, Creatinine 0.6L, Estimat Glomerular Filtration Rate > 60, Glucose Level 116H, Calcium Level 9.3, Magnesium Level 1.6L, Total Bilirubin 0.6, Gamma Glutamyl Transpeptidase 39, Aspartate Amino Transf (AST/ SGOT) 24, Alanine Aminotransferase (ALT/SGPT) 14, Alkaline Phosphatase 141H, Pro -B-Type Natriuretic Peptide 516H, Total Protein 8.0, Albumin 2.9L, Globulin 5.1 , Albumin/Globulin Ratio 0.5L, Vitamin D 25-Hydroxy [Pending], 25-Hydroxy Vitamin D2 [Pending], 25-Hydroxy Vitamin D3 [Pending] Height (Feet): 5 Height (Inches): 8.00 Weight (Pounds): 150 Objective Debilitated AA man NCAT supple CTA RRR Soft ND NT (+ ) foot amputations Delirium STEWARTDL ANDRADE Jul 06, 2016 08:35
--- NOTE | 2016-07-06 08:36 | Pre-Procedure Note/Attestation ---
Pre-Procedure Note/Attestation Complete Prior to Procedure Planned Procedure: not applicable Procedure Narrative: egd/PEG Indications for Procedure Pre-Operative Diagnosis: dysphagia, anemia Attestation I attest that I discussed the nature of the procedure; its benefits; risks and complications; and alternatives (and the risks and benefits of such alternatives ), prior to the procedure, with the patient (or the patient's legal teleservices representative). I attest that, if there was a reasonable possibility of needing a blood transfusion, the patient (or the patient's legal teleservices representative) was given the [facility] standardized written summary, pursuant to the Amos Cheikh Blood Safety Act ([place] Health and Safety Code # 1645, as amended). I attest that I re-evaluated the patient just prior to the surgery and that there has been no change in the patient's H&P, except as documented below: DL CABRERA Jul 06, 2016 08:36
[2016-07-06] MEDS: Multivitamin 5ml Liquid NG SCH (09:00)
--- NOTE | 2016-07-06 09:13 | Endoscopy Procedure Note ---
Endoscopy Procedure Note Indication for Procedure: anemia, dysphagia Procedures Performed: EGD, PEG Operative Findings/Diagnosis: small - bx, PEG Specimen: yes Pt Tolerated Procedure Well: Yes Estimated Blood Loss: none Anesthesiologist: Dalia Anesthesia: MAC Medication Given: see anesthesia record Implant(s) used?: No 50 yrs or older w/o bx or poly: Not Applicable 10yrs. F/U not recommended: Not Applicable If not recommended, why?: LD CABRERA Jul 06, 2016 09:13
--- NOTE | 2016-07-06 09:14 | Brief Operative Note ---
Immediate Post Operative Note Operative Note Chief Complaint: anemia, dysphagia Pre-op Diagnosis: dysphagia, anemia Procedure: EGD, Ent, PEG, Bx Post-op Diagnosis: shallow ,PEG Surgeon: kg Anesthesiologist: Dalia Specimen: yes Complications: none Condition: stable Estimated Blood Loss: none Drains: none Implant(s) used?: No DL CABRERA Jul 06, 2016 09:14
--- NOTE | 2016-07-06 09:36 | Immediate Post-Op Evaluation ---
Immediate Post-Op Evalulation Immediate Post-Op Evalulation Procedure: B/L transmetarsal amputation Date of Evaluation: Jul 06, 2016 Time of Evaluation: 09:35 IV Fluids: 300 Blood Products: 0 Estimated Blood Loss: 0 Urinary Output: 0 Blood Pressure Systolic: 120 Blood Pressure Diastolic: 80 Pulse Rate: 113 Respiratory Rate: 22 O2 Sat by Pulse Oximetry: 99 Temperature (Fahrenheit): 98 Pain Score (1-10): 1 Nausea: No Vomiting: No Complications na Patient Status: awake Hydration Status: adequate Given Within 1 Hr of Incision: PAO Staples M.D. Jul 06, 2016 09:36
--- NOTE | 2016-07-06 09:37 | 48 Hour Post Anesthesia Eval ---
Post Anesthesia Evaluation Procedure: B/L transmetarsal amputation Date of Evaluation: Jul 06, 2016 Time of Evaluation: 10:30 Blood Pressure Systolic: 120 0: 80 Pulse Rate: 110 Respiratory Rate: 22 Temperature (Fahrenheit): 98 O2 Sat by Pulse Oximetry: 98 Airway: patent Nausea: No Vomiting: No Pain Intensity: 1 Hydration Status: adequate Cardiopulmonary Status: preop Mental Status/LOC: patient returned to baseline Follow-up Care/Observations: na Post-Anesthesia Complications: na Follow-up care needed: N/A PAO NAVARRETE M.D. Jul 06, 2016 09:37
[2016-07-06] MEDS: levETIRAcetam 500 MG in D5W 110 ML IVPB SCH ×2 (10:31→20:57)
[2016-07-06] MEDS: Lisinopril 20mg tab ORAL SCH (10:31)
[2016-07-06] MEDS: Docusate 100mg tablet NG SCH ×2 (10:32→17:07)
[2016-07-06] MEDS: Ascorbic Acid 500mg tab NG SCH (10:32)
[2016-07-06] MEDS: Metoprolol 50mg tab NG SCH ×2 (10:32→20:57)
[2016-07-06] MEDS: Potassium Chloride 30 MEQ in 1/2 NS 1000ml 1,000 ML IV SCH (14:33)
[2016-07-06] MEDS ORDERED: Tubing IV Secondary IV ONE (15:35)
[2016-07-06] MEDS ORDERED: NS 275ml ONE (15:35)
--- NOTE | 2016-07-06 15:36 | Infectious Diseases Prog Note ---
Assessment/Plan Assessment/Plan A 1. bilateral feet and right fingers gangrene 2. renal failure improving 3. MRSA sepsis recently 4. DM 5. left frontal bone fracture, subdural hematoma 6. Dysphagia s/ p GT 7. s/p bilateral transmetatarsal amputation P 1. continue Vancomycin Subjective ROS Limited/Unobtainable: Yes Gastrointestinal/Abdominal: Reports: other - s/p EGD & GT placement Allergies: Coded Allergies: No Known Allergies (Unverified , 05/30/16) Objective Vital Signs Last 24 Hour Vital Signs Date Time Temp Pulse Resp B/P Pulse Ox O2 Delivery O2 Flow Rate FiO2 07/06/16 12:38 97.2 107 20 135/88 96 Nasal Cannula 2.0 07/06/16 10:32 118 135/75 07/06/16 10:31 135/75 07/06/16 09:40 97.3 118 21 135/75 97 Simple Mask 6.0 07/06/16 09:37 110 22 98 07/06/16 09:36 113 22 99 07/06/16 09:25 119 26 132/77 97 Simple Mask 6.0 07/06/16 09:20 120 26 144/71 97 Simple Mask 6.0 07/06/16 09:15 96.9 117 26 138/87 97 Simple Mask 6.0 07/06/16 07:42 118 07/06/16 07:25 97.0 118 20 146/83 95 Nasal Cannula 2.0 07/06/16 04:00 98.0 109 20 119/78 96 Nasal Cannula 2.0 07/06/16 04:00 107 07/06/16 00:17 97.0 100 20 141/97 97 Nasal Cannula 2.0 07/06/16 00:00 99 07/05/16 21:00 94 142/75 07/05/16 20:00 100 07/05/16 20:00 97.3 94 19 142/75 Nasal Cannula 2.0 94 07/05/16 19:05 98 Nasal Cannula 2.0 28 07/05/16 19:05 Nasal Cannula 2.0 28 07/05/16 16:00 98.2 102 18 127/78 99 Room Air 07/05/16 16:00 103 Height (Feet): 5 Height (Inches): 8.00 Weight (Pounds): 150 General Appearance: no acute distress HEENT: mucous membranes moist Respiratory/Chest: lungs clear Cardiovascular: normal rate Abdomen: soft, non tender, other - GT in place Extremities: other - R fingers gangrene Skin: other - dressing of feet Neurologic/Psychiatric: disoriented Laboratory Tests Test 07/06/16 05:15 White Blood Count 6.5 K/UL (4.8-10.8) Red Blood Count 3.99 M/UL (4.70-6.10) L Hemoglobin 9.1 G/DL (14.2-18.0) L Hematocrit 30.7 % (42.0-52.0) L Mean Corpuscular Volume 77 FL (80-99) L Mean Corpuscular Hemoglobin 22.9 PG (27.0-31.0) L Mean Corpuscular Hemoglobin Concent 29.8 G/DL (32.0-36.0) L Red Cell Distribution Width 20.1 % (11.6-14.8) H Platelet Count 339 K/UL (150-450) Mean Platelet Volume 7.5 FL (6.5-10.1) Neutrophils (%) (Auto) 69.4 % (45.0-75.0) Lymphocytes (%) (Auto) 17.0 % (20.0-45.0) L Monocytes (%) (Auto) 10.3 % (1.0-10.0) H Eosinophils (%) (Auto) 2.8 % (0.0-3.0) Basophils (%) (Auto) 0.5 % (0.0-2.0) Prothrombin Time 10.7 SEC (9.30-11.50) Prothromb Time International Ratio 1.1 (0.9-1.1) Activated Partial Thromboplast Time 31 SEC (23-33) Sodium Level 133 mEQ/L (135-145) L Potassium Level 4.1 mEQ/L (3.4-4.9) Chloride Level 92 mEQ/L (98-107) L Carbon Dioxide Level 26 mEQ/L (20-30) Anion Gap 15 (5-15) Blood Urea Nitrogen 6 mg/dL (7-23) L Creatinine 0.6 mg/dL (0.7-1.2) L Estimat Glomerular Filtration Rate > 60 mL/min (>60) Glucose Level 116 mg/dL (74-106) H Calcium Level 9.3 mg/dL (8.6-10.2) Magnesium Level 1.6 mg/dL (1.7-2.5) L Total Bilirubin 0.6 mg/dL (0.0-1.2) Gamma Glutamyl Transpeptidase 39 U/L (8-61) Aspartate Amino Transf (AST/SGOT) 24 U/L (5-40) Alanine Aminotransferase (ALT/SGPT) 14 U/L (3-41) Alkaline Phosphatase 141 U/L (40-129) H Pro-B-Type Natriuretic Peptide 516 pg/mL (0-125) H Total Protein 8.0 g/dL (6.6-8.7) Albumin 2.9 g/dL (3.5-5.2) L Globulin 5.1 g/dL Albumin/Globulin Ratio 0.5 (1.0-2.7) L Vitamin D 25-Hydroxy Pending 25-Hydroxy Vitamin D2 Pending 25-Hydroxy Vitamin D3 Pending Current Medications Medications (Trade) Dose Ordered Sig/Mateo Route PRN Reason Start Time Stop Time Status Last Admin Dose Admin Acetaminophen (Tylenol) 650 mg PRN PRN NG Mild Pain/Temp > 100.5 06/27/16 06:30 07/27/16 06:29 06/29/16 04:22 Acetaminophen (Tylenol) 650 mg Q4H PRN NG Prn Headache/Temp > 101 06/28/16 14:36 07/26/16 17:29 Acetaminophen (Tylenol) 650 mg Q4H PRN RECTAL Mild Pain (Pain Scale 1-3) 06/26/16 17:30 07/26/16 17:29 06/27/16 05:17 Ascorbic Acid (Vitamin C) 500 mg DAILY NG 06/28/16 11:00 07/28/16 10:59 07/06/16 10:32 Dextrose (Dextrose 50%) STAT PRN IV Hypoglycemia 06/26/16 20:30 07/26/16 20:29 Docusate Sodium 100 mg 100 mg BID NG 06/30/16 20:00 07/30/16 19:59 07/06/16 10:32 Epoetin Zia (Procrit (for ESRD on dialysis)) 10,000 units SUN-SUN-SUN SUBQ 06/26/16 21:00 07/26/16 20:59 07/05/16 21:53 Insulin Aspart (NovoLOG) EVERY 6 HOURS SUBQ 06/29/16 12:00 07/29/16 11:59 07/05/16 07:06 Insulin Detemir (Levemir) 5 units Q12HR@0600,1800 SUBQ 06/29/16 18:00 07/29/16 17:59 07/06/16 06:42 Levetiracetam/ Dextrose (Keppra/D5W) 115 ml @ 460 mls/hr Q12HR IVPB 06/27/16 01:30 07/27/16 01:29 07/06/16 10:31 Lisinopril (Prinivil) 20 mg DAILY ORAL 06/27/16 09:00 07/27/16 08:59 07/06/16 10:31 Metoprolol Tartrate (Lopressor) 50 mg Q12HR NG 06/30/16 21:00 07/30/16 20:59 07/06/16 10:32 Multivitamins (Multivitamin Hexavitamin) 5 ml DAILY NG 06/28/16 11:00 07/28/16 10:59 07/06/16 09:00 Potassium Chloride/Sodium Chloride (KCl/0.45% NS 1000ml) 1,015 ml @ 60 mls/hr [id number] IV 06/26/16 17:30 07/26/16 17:29 07/06/16 14:33 Sennosides (Senokot) 8.6 mg DAILY NG 06/28/16 14:36 07/27/16 08:59 07/06/16 10:32 Vancomycin HCl 1 ea 1 ea DAILY PRN MISC PRN RX PROTOCOL 06/26/16 17:30 07/26/16 17:29 Vancomycin HCl/ Dextrose (Vancomycin/D5W) 275 ml @ 183.708 mls/hr Q12HR@0400,1600 IVPB 07/03/16 16:00 07/09/16 17:30 07/06/16 04:25 DE REILLY Jul 06, 2016 15:36
--- NOTE | 2016-07-06 16:57 | Podiatric Progress Note ---
Assessment/Plan Patient Shoaib De Anda is a 56 year old male who was admitted on Jun 22, 2016 at 03:48 with bilateral forefoot gangrene Problems: (1) Status post transmetatarsal amputation of right foot (2) Status post transmetatarsal amputation of left foot Assessment/Plan - Patient's surgical site is healing well without complications. Will remove raysa 2 weeks from surgery date. Patient is awaiting discharge. Will continue to follow the patient at senior care facility - Continue to cover the surgical site with kerlix - Continue to offload heels Subjective Day of Surgery: 06/26/16 Reason for consult Bilateral forefoot gangrene Procedure Performed Bilateral foot transmetatarsal amputation Allergies: Coded Allergies: No Known Allergies (Unverified , 05/30/16) Subjective Patient is unable to communicate effectively Objective Exam Last 24 Hour Vital Signs Date Time Temp Pulse Resp B/P Pulse Ox O2 Delivery O2 Flow Rate FiO2 07/06/16 16:00 96.6 97 20 131/84 96 Room Air 07/06/16 12:38 97.2 107 20 135/88 96 Nasal Cannula 2.0 07/06/16 10:32 118 135/75 07/06/16 10:31 135/75 07/06/16 09:40 97.3 118 21 135/75 97 Simple Mask 6.0 07/06/16 09:37 110 22 98 07/06/16 09:36 113 22 99 07/06/16 09:25 119 26 132/77 97 Simple Mask 6.0 07/06/16 09:20 120 26 144/71 97 Simple Mask 6.0 07/06/16 09:15 96.9 117 26 138/87 97 Simple Mask 6.0 07/06/16 07:42 118 07/06/16 07:25 97.0 118 20 146/83 95 Nasal Cannula 2.0 07/06/16 04:00 98.0 109 20 119/78 96 Nasal Cannula 2.0 07/06/16 04:00 107 07/06/16 00:17 97.0 100 20 141/97 97 Nasal Cannula 2.0 07/06/16 00:00 99 07/05/16 21:00 94 142/75 07/05/16 20:00 100 07/05/16 20:00 97.3 94 19 142/75 Nasal Cannula 2.0 94 07/05/16 19:05 98 Nasal Cannula 2.0 28 07/05/16 19:05 Nasal Cannula 2.0 28 Laboratory Tests Test 07/06/16 05:15 White Blood Count 6.5 K/UL (4.8-10.8) Red Blood Count 3.99 M/UL (4.70-6.10) L Hemoglobin 9.1 G/DL (14.2-18.0) L Hematocrit 30.7 % (42.0-52.0) L Mean Corpuscular Volume 77 FL (80-99) L Mean Corpuscular Hemoglobin 22.9 PG (27.0-31.0) L Mean Corpuscular Hemoglobin Concent 29.8 G/DL (32.0-36.0) L Red Cell Distribution Width 20.1 % (11.6-14.8) H Platelet Count 339 K/UL (150-450) Mean Platelet Volume 7.5 FL (6.5-10.1) Neutrophils (%) (Auto) 69.4 % (45.0-75.0) Lymphocytes (%) (Auto) 17.0 % (20.0-45.0) L Monocytes (%) (Auto) 10.3 % (1.0-10.0) H Eosinophils (%) (Auto) 2.8 % (0.0-3.0) Basophils (%) (Auto) 0.5 % (0.0-2.0) Prothrombin Time 10.7 SEC (9.30-11.50) Prothromb Time International Ratio 1.1 (0.9-1.1) Activated Partial Thromboplast Time 31 SEC (23-33) Sodium Level 133 mEQ/L (135-145) L Potassium Level 4.1 mEQ/L (3.4-4.9) Chloride Level 92 mEQ/L (98-107) L Carbon Dioxide Level 26 mEQ/L (20-30) Anion Gap 15 (5-15) Blood Urea Nitrogen 6 mg/dL (7-23) L Creatinine 0.6 mg/dL (0.7-1.2) L Estimat Glomerular Filtration Rate > 60 mL/min (>60) Glucose Level 116 mg/dL (74-106) H Calcium Level 9.3 mg/dL (8.6-10.2) Magnesium Level 1.6 mg/dL (1.7-2.5) L Total Bilirubin 0.6 mg/dL (0.0-1.2) Gamma Glutamyl Transpeptidase 39 U/L (8-61) Aspartate Amino Transf (AST/SGOT) 24 U/L (5-40) Alanine Aminotransferase (ALT/SGPT) 14 U/L (3-41) Alkaline Phosphatase 141 U/L (40-129) H Pro-B-Type Natriuretic Peptide 516 pg/mL (0-125) H Total Protein 8.0 g/dL (6.6-8.7) Albumin 2.9 g/dL (3.5-5.2) L Globulin 5.1 g/dL Albumin/Globulin Ratio 0.5 (1.0-2.7) L Vitamin D 25-Hydroxy Pending 25-Hydroxy Vitamin D2 Pending 25-Hydroxy Vitamin D3 Pending Microbiology Date/Time Source Procedure Growth Status 06/27/16 10:30 Blood Blood Culture - Final NO GROWTH AFTER 5 DAYS Complete 06/22/16 04:54 Nasal Nares MRSA Culture - Final Staphylococcus Aureus - Mrsa Complete 06/27/16 12:25 Indwelling Cath Urine Culture - Final NO GROWTH AFTER 48 HOURS Complete 06/22/16 14:30 Foot Left Gram Stain - Final Complete 06/22/16 14:30 Wound Culture - Final Enterococcus Faecalis Complete Exam Narrative Incision site is well coapted with raysa in tact. ANGELO drain site with steri strips in not draining. No edema or surrounding erythema Dermatological Wound Assessment : Exudate Amount: None Lang Klein DPM Jul 06, 2016 16:57
[2016-07-07] VITALS: BP 143/83
--- NOTE | 2016-07-07 00:17 | Progress Note ---
DATE: 07/06/2016 CARDIOLOGY PROGRESS NOTE: SUBJECTIVE: The patient is status post G-tube placement. He remains NPO. OBJECTIVE: VITAL SIGNS: Blood pressure is 135/88, pulse 118, respiratory rate 20, and afebrile. GENERAL: Withdrawn, but responsive. CHEST: Bilateral breath sounds with no wheezing. HEART: Regular rhythm and rapid rate. Normal S1 and S2. ABDOMEN: Soft. EXTREMITIES: Feet do have dressing in place. Right hand with dry gangrene. LABORATORY DATA: Sodium is 133, potassium 4.1, bicarbonate 92, BUN 6, creatinine 0.6, and magnesium 1.6. Albumin is 3.9. Pro-natriuretic peptide is 516. White count is 6.5 and hemoglobin 9.1. IMPRESSION: 1. Dysphagia, status post gastrostomy tube. 2. Secondary sinus tachycardia. 3. Peripheral artery disease. 4. Gangrene. 5. Status post bilateral transmetatarsal amputations of the feet. 6. Persistent dry gangrene of the right upper extremity. 7. Insulin-requiring diabetes mellitus with recent diabetic ketoacidosis episode. 8. Anemia. PLAN: 1. Intravenous beta-michelle until able to tolerate oral dose per G-tube. 2. Antibiotics. 3. Pain control. 4. Discussed with nursing staff. 5. Wound care. 6. Monitor hemoglobin. 7. IV magnesium replacement 8. Adjust intravenous fluids and initiate GTube feedings once cleared by Gastrointestinal attending. Morales Serrano M.D. DR: Naldo JOB#: [id number] CC: ESME
[2016-07-07] MEDS ORDERED: Metoprolol 5mg/5ml Inj IVPB SCH (00:45)
[2016-07-07] MEDS: Potassium Chloride 30 MEQ in 1/2 NS 1000ml 1,000 ML IV SCH (01:20)
[2016-07-07] MEDS: Acetaminophen 650mg/20.3ml NG PRN (01:21)
[2016-07-07 04:00] VITALS: BP 123/82
[2016-07-07] MEDS: Vancomycin 1 GM in D5W 275 ML IVPB SCH (04:28)
[2016-07-07] MEDS: NovoLOG Insulin Flexpen SUBQ SCH ×4 (06:00→17:54)
[2016-07-07] MEDS: Levemir Flexpen SUBQ SCH ×2 (06:12→17:53)
--- NOTE | 2016-07-07 06:57 | General Progress Note ---
Assessment/Plan Problem List: (1) Metabolic acidosis ICD Codes: E87.2 - Acidosis SNOMED: 97924543 (2) Ischemia of foot ICD Codes: I99.8 - Other disorder of circulatory system SNOMED: 440981377, 367702677 (3) Chronic kidney disease ICD Codes: N18.9 - Chronic kidney disease, unspecified SNOMED: 574364428 Qualifiers: Qualified Codes: N18.9 - Chronic kidney disease, unspecified (4) Anemia, chronic disease ICD Codes: D63.8 - Anemia in other chronic diseases classified elsewhere SNOMED: 400503001 (5) Encephalopathy ICD Codes: G93.40 - Encephalopathy, unspecified SNOMED: 88802778, 224559614 (6) Rhabdomyolysis ICD Codes: M62.82 - Rhabdomyolysis SNOMED: 805439731 (7) Sepsis ICD Codes: A41.9 - Sepsis, unspecified organism SNOMED: 51229982 Qualifiers: Qualified Codes: A41.9 - Sepsis, unspecified organism (8) Pneumonia ICD Codes: J18.9 - Pneumonia, unspecified organism SNOMED: 208113012 Qualifiers: Status: stable, progressing Assessment/Plan await clearance to start feeds ivf meds via gt wound care abx per id- ?duration. will d/w ID dc planning today if tolerating feeds Subjective ROS Limited/Unobtainable: Yes Constitutional: Reports: malaise, weakness HEENT: Reports: no symptoms Cardiovascular: Reports: no symptoms Respiratory: Reports: cough Gastrointestinal/Abdominal: Reports: difficulty swallowing Genitourinary: Reports: no symptoms Neurologic/Psychiatric: Reports: pre-existing deficit Endocrine: Reports: no symptoms Hematologic/Lymphatic: Reports: anemia Allergies: Coded Allergies: No Known Allergies (Unverified , 05/30/16) All Systems: reviewed and negative except above Subjective s/p uncomplicated gt. meds given via gt. still no feeds. awake but confused. restrained for safety(pulls out lines) Objective Last 24 Hour Vital Signs Date Time Temp Pulse Resp B/P Pulse Ox O2 Delivery O2 Flow Rate FiO2 07/07/16 04:00 97.0 92 20 123/82 96 Room Air 07/07/16 00:00 91 07/07/16 00:00 97.0 90 20 143/83 95 Room Air 07/06/16 21:00 Nasal Cannula 2.0 28 07/06/16 21:00 96 Nasal Cannula 2.0 28 07/06/16 20:57 103 136/91 07/06/16 20:00 97 07/06/16 20:00 79 18 136/91 92 Room Air 07/06/16 16:00 93 07/06/16 16:00 96.6 97 20 131/84 96 Room Air 07/06/16 12:38 97.2 107 20 135/88 96 Nasal Cannula 2.0 07/06/16 10:32 118 135/75 07/06/16 10:31 135/75 07/06/16 09:40 97.3 118 21 135/75 97 Simple Mask 6.0 07/06/16 09:37 110 22 98 07/06/16 09:36 113 22 99 07/06/16 09:25 119 26 132/77 97 Simple Mask 6.0 07/06/16 09:20 120 26 144/71 97 Simple Mask 6.0 07/06/16 09:15 96.9 117 26 138/87 97 Simple Mask 6.0 07/06/16 07:42 118 07/06/16 07:25 97.0 118 20 146/83 95 Nasal Cannula 2.0 Intake and Output 07/06/16 07/07/16 19:00 07:00 Intake Total 867.416 ml 895.000 ml Output Total 700 ml 2000 ml Balance 167.416 ml -1105.000 ml IV Total 867.416 ml 895.000 ml Output Urine Total 700 ml 2000 ml Height (Feet): 5 Height (Inches): 8.00 Weight (Pounds): 150 Objective Cardiovascular: regular rhythm Respiratory/Chest: clear lanette Abdomen: normal bowel sounds, non tender, soft, no organomegaly. +gt Edema: no edema noted Arm (L), no edema noted Arm (R), no edema noted Leg (L), no edema noted Leg (R), no edema noted Pedal (L), no edema noted Pedal (R), no edema noted Generalized Neurologic: responsive, disoriented Objective gangrene fingers right hand bilteral feet dressed DARYN JEREZ Jul 07, 2016 06:57
[2016-07-07 08:00] VITALS: BP 136/101
[2016-07-07] MEDS: Multivitamin 5ml Liquid NG SCH (08:55)
[2016-07-07] MEDS: levETIRAcetam 500 MG in D5W 110 ML IVPB SCH ×2 (08:55→21:01)
[2016-07-07] MEDS: Metoprolol 50mg tab NG SCH ×2 (08:56→21:01)
[2016-07-07] MEDS: Lisinopril 20mg tab ORAL SCH (08:56)
[2016-07-07] MEDS: Docusate 100mg tablet NG SCH ×2 (08:56→17:47)
[2016-07-07] MEDS: Ascorbic Acid 500mg tab NG SCH (08:56)
--- NOTE | 2016-07-07 10:45 | Infectious Diseases Prog Note ---
Assessment/Plan Assessment/Plan antibiotics : vancomycin iv A 1. 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 renal failure improving 3. MRSA sepsis s/p rx 4. DM 5. fungal UTI s/p rx 6. subdural hematoma P 1. d/c vancomycin iv 2. observe off antibiotics Subjective ROS Limited/Unobtainable: Yes Allergies: Coded Allergies: No Known Allergies (Unverified , 05/30/16) Objective Vital Signs Last 24 Hour Vital Signs Date Time Temp Pulse Resp B/P Pulse Ox O2 Delivery O2 Flow Rate FiO2 07/07/16 08:56 98 136/101 07/07/16 08:56 136/101 07/07/16 08:00 97 07/07/16 08:00 98.6 98 20 136/101 98 Room Air 07/07/16 07:58 97 Nasal Cannula 2.0 07/07/16 04:00 97.0 92 20 123/82 96 Room Air 07/07/16 00:00 91 07/07/16 00:00 97.0 90 20 143/83 95 Room Air 07/06/16 21:00 Nasal Cannula 2.0 28 07/06/16 21:00 96 Nasal Cannula 2.0 28 07/06/16 20:57 103 136/91 07/06/16 20:00 97 07/06/16 20:00 79 18 136/91 92 Room Air 07/06/16 16:00 93 07/06/16 16:00 96.6 97 20 131/84 96 Room Air 07/06/16 12:38 97.2 107 20 135/88 96 Nasal Cannula 2.0 Height (Feet): 5 Height (Inches): 8.00 Weight (Pounds): 150 Respiratory/Chest: lungs clear Cardiovascular: normal rate, regular rhythm, no gallop/murmur Abdomen: soft, non tender Extremities: no edema, other - in dressings, right fingers necrotic COLTON GONZALEZ Jul 07, 2016 10:45
[2016-07-07 12:00] VITALS: BP 129/79
[2016-07-07 16:00] VITALS: BP 124/74
[2016-07-07 20:00] VITALS: BP 113/74
[2016-07-07] MEDS: Epogen (for ESRD on dialysis) SUBQ SCH (21:02)
--- NOTE | 2016-07-07 22:40 | Progress Note ---
DATE: 07/07/2016 CARDIOLOGY PROGRESS NOTE SUBJECTIVE: The patient is status post G-tube. Feedings are to be initiated today. The patient remains withdrawn and confused at times but alert. He continues to require restraints for safety. OBJECTIVE: VITAL SIGNS: Blood pressure 123/82, pulse 90, and respirations 20. He is afebrile. He is saturating 96% on room air. NECK: Supple. LUNGS: Clear. CARDIAC: Regular rhythm and rate. Normal S1 and S2 with a fourth heart sound. ABDOMEN: Soft and nontender. G-tube is intact. EXTREMITIES: Without edema. Dressing bilateral feet and right hand with dry gangrenous change at these digits. IMPRESSION: 1. Gangrene of the feet and hands status post bilateral transmetatarsal amputations. 2. Acute on chronic renal failure, improving. 3. Hypertensive heart disease still with labile blood pressure. 4. Secondary sinus tachycardia. 5. Sepsis. 6. Urinary tract infection. 7. Diabetes mellitus status post diabetic ketoacidosis. 8. Head trauma with subdural hematoma. 9. Dysphagia status post gastrostomy tube. PLAN: 1. Off antibiotics per Infectious Disease multi site leasing consultant. 2. Titrate antihypertensives with caution. 3. Avoid orthostasis. 4. Nutrition by G-tube. 5. Titrate diabetic therapy and insulin coverage. 6. Pain control. 7. Wound care. 8. Antiplatelet therapy and anti-lipid therapy. 9. Transition from IV to oral beta-michelle once G-tube feedings are tolerated. Morales Serrano M.D. DR: IGNACIO JOB#: [id number] CC:
--- NOTE | 2016-07-07 23:05 | General Progress Note ---
Assessment/Plan Assessment/Plan Assessment - Dysphagia - s/p PEG - Anemia - PVD / amputation - Elevated Alk phos / nl GGT Recommendation - GT care - Elevate HOB - Tube feeds - follow labs and exam Subjective Allergies: Coded Allergies: No Known Allergies (Unverified , 05/30/16) Subjective Debilitated minimally interactive labs noted s/p PEG Objective Last 24 Hour Vital Signs Date Time Temp Pulse Resp B/P Pulse Ox O2 Delivery O2 Flow Rate FiO2 07/07/16 21:01 104 113/74 07/07/16 20:00 96 Nasal Cannula 2.0 28 07/07/16 20:00 97.2 104 20 113/74 93 Room Air 07/07/16 20:00 101 07/07/16 20:00 Nasal Cannula 2.0 28 07/07/16 16:00 97.3 100 21 124/74 95 Room Air 07/07/16 12:00 98.2 93 20 129/79 98 Room Air 07/07/16 12:00 89 07/07/16 08:56 98 136/101 07/07/16 08:56 136/101 07/07/16 08:00 97 07/07/16 08:00 98.6 98 20 136/101 98 Room Air 07/07/16 07:58 97 Nasal Cannula 2.0 07/07/16 07:57 Nasal Cannula 2.0 07/07/16 04:00 97.0 92 20 123/82 96 Room Air 07/07/16 00:00 91 07/07/16 00:00 97.0 90 20 143/83 95 Room Air Intake and Output 07/06/16 07/07/16 19:00 07:00 Intake Total 867.416 ml 955.000 ml Output Total 700 ml 2000 ml Balance 167.416 ml -1045.000 ml IV Total 867.416 ml 955.000 ml Output Urine Total 700 ml 2000 ml Height (Feet): 5 Height (Inches): 8.00 Weight (Pounds): 150 Objective Debilitated AA man NCAT supple CTA RRR Soft ND NT (+ ) foot amputations Delirium DL CABRERA Jul 07, 2016 23:05
[2016-07-08] VITALS: BP 118/72
[2016-07-08] MEDS: NovoLOG Insulin Flexpen SUBQ SCH ×3 (00:23→12:19)
[2016-07-08] MEDS: Potassium Chloride 30 MEQ in 1/2 NS 1000ml 1,000 ML IV SCH (00:24)
[2016-07-08 04:00] VITALS: BP 124/73
[2016-07-08] MEDS: Levemir Flexpen SUBQ SCH (06:14)
[2016-07-08 07:24] LABS: BASOPHILS % (AUTO) 0.7 % (0.0-2.0); EOSINOPHILS % (AUTO) 2.5 % (0.0-3.0); LYMPHOCYTES % (AUTO) 16.2 % (20.0-45.0); MEAN CORPUSCULAR HEMOGLOBIN 22.9 PG (27.0-31.0); MEAN CORPUSCULAR HGB CONC 29.4 G/DL (32.0-36.0); MEAN CORPUSCULAR VOLUME 78 FL (80-99); MEAN PLATELET VOLUME 7.1 FL (6.5-10.1); MONOCYTES % (AUTO) 9.9 % (1.0-10.0); NEUTROPHILS % (AUTO) 70.7 % (45.0-75.0); PLATELET COUNT 418 K/UL (150-450); RED BLOOD COUNT 4.16 M/UL (4.70-6.10); RED CELL DISTRIBUTION WIDTH 20.4 % (11.6-14.8); WHITE BLOOD COUNT 7.5 K/UL (4.8-10.8)
[2016-07-08 07:43] LABS: ALANINE AMINOTRANSFERASE 12 U/L (3-41); ALBUMIN/GLOBULIN RATIO 0.6 (1.0-2.7); ANION GAP 17 (5-15); ASPARTATE AMINO TRANSFERASE 16 U/L (5-40); CALCIUM 9.7 mg/dL (8.6-10.2); CARBON DIOXIDE 24 mEQ/L (20-30); CHLORIDE 93 mEQ/L (98-107); CREATININE 0.6 mg/dL (0.7-1.2); GLOMERULAR FILTRATION RATE > 60 mL/min (>60); HEMOLYSIS 0; MAGNESIUM 1.7 mg/dL (1.7-2.5); POTASSIUM 4.5 mEQ/L (3.4-4.9); SODIUM 134 mEQ/L (135-145)
[2016-07-08] MEDS: levETIRAcetam 500 MG in D5W 110 ML IVPB SCH (08:01)
[2016-07-08] MEDS: Multivitamin 5ml Liquid NG SCH (08:01)
[2016-07-08] MEDS: Metoprolol 50mg tab NG SCH (08:01)
[2016-07-08] MEDS: Lisinopril 20mg tab ORAL SCH (08:02)
[2016-07-08] MEDS: Docusate 100mg tablet NG SCH (08:02)
[2016-07-08] MEDS: Ascorbic Acid 500mg tab NG SCH (08:02)
[2016-07-08 08:11] VITALS: BP 129/71
--- NOTE | 2016-07-08 08:53 | Podiatric Progress Note ---
Assessment/Plan Patient Shoaib De Anda is a 56 year old male who was admitted on Jun 22, 2016 at 03:48 with sepsis Problems: (1) Status post transmetatarsal amputation of left foot (2) Status post transmetatarsal amputation of right foot Assessment/Plan - Removed raysa today without complications. Applied steri-strips, aisha, and jeri wrap - Okay to discontinue dressings on 07/10/16 and get the area wet - Offload heels Subjective Day of Surgery: 06/26/16 Reason for consult Bilateral forefoot gangrene with left forefoot infection Procedure Performed Bilateral transmetatarsal amputation, left more proximal than right Allergies: Coded Allergies: No Known Allergies (Unverified , 05/30/16) Subjective Patient is unable to communicate effectively Objective Exam Last 24 Hour Vital Signs Date Time Temp Pulse Resp B/P Pulse Ox O2 Delivery O2 Flow Rate FiO2 07/08/16 08:11 97.2 103 20 129/71 95 Nasal Cannula 2.0 07/08/16 08:02 129/71 07/08/16 08:01 103 129/71 07/08/16 04:00 91 07/08/16 04:00 97.0 93 20 124/73 95 Room Air 07/08/16 01:00 90 07/08/16 00:00 97.6 89 20 118/72 94 Room Air 07/07/16 21:01 104 113/74 07/07/16 20:00 96 Nasal Cannula 2.0 28 07/07/16 20:00 97.2 104 20 113/74 93 Room Air 07/07/16 20:00 101 07/07/16 20:00 Nasal Cannula 2.0 28 07/07/16 16:00 97.3 100 21 124/74 95 Room Air 07/07/16 12:00 98.2 93 20 129/79 98 Room Air 07/07/16 12:00 89 07/07/16 08:56 98 136/101 07/07/16 08:56 136/101 Laboratory Tests Test 07/08/16 06:35 White Blood Count 7.5 K/UL (4.8-10.8) Red Blood Count 4.16 M/UL (4.70-6.10) L Hemoglobin 9.5 G/DL (14.2-18.0) L Hematocrit 32.4 % (42.0-52.0) L Mean Corpuscular Volume 78 FL (80-99) L Mean Corpuscular Hemoglobin 22.9 PG (27.0-31.0) L Mean Corpuscular Hemoglobin Concent 29.4 G/DL (32.0-36.0) L Red Cell Distribution Width 20.4 % (11.6-14.8) H Platelet Count 418 K/UL (150-450) Mean Platelet Volume 7.1 FL (6.5-10.1) Neutrophils (%) (Auto) 70.7 % (45.0-75.0) Lymphocytes (%) (Auto) 16.2 % (20.0-45.0) L Monocytes (%) (Auto) 9.9 % (1.0-10.0) Eosinophils (%) (Auto) 2.5 % (0.0-3.0) Basophils (%) (Auto) 0.7 % (0.0-2.0) Sodium Level 134 mEQ/L (135-145) L Potassium Level 4.5 mEQ/L (3.4-4.9) Chloride Level 93 mEQ/L (98-107) L Carbon Dioxide Level 24 mEQ/L (20-30) Anion Gap 17 (5-15) H Blood Urea Nitrogen 8 mg/dL (7-23) Creatinine 0.6 mg/dL (0.7-1.2) L Estimat Glomerular Filtration Rate > 60 mL/min (>60) Glucose Level 115 mg/dL (74-106) H Calcium Level 9.7 mg/dL (8.6-10.2) Magnesium Level 1.7 mg/dL (1.7-2.5) Total Bilirubin 0.3 mg/dL (0.0-1.2) Aspartate Amino Transf (AST/SGOT) 16 U/L (5-40) Alanine Aminotransferase (ALT/SGPT) 12 U/L (3-41) Alkaline Phosphatase 149 U/L (40-129) H Pro-B-Type Natriuretic Peptide 497 pg/mL (0-125) H Total Protein 8.0 g/dL (6.6-8.7) Albumin 3.1 g/dL (3.5-5.2) L Globulin 4.9 g/dL Albumin/Globulin Ratio 0.6 (1.0-2.7) L Microbiology Date/Time Source Procedure Growth Status 06/27/16 10:30 Blood Blood Culture - Final NO GROWTH AFTER 5 DAYS Complete 06/22/16 04:54 Nasal Nares MRSA Culture - Final Staphylococcus Aureus - Mrsa Complete 06/27/16 12:25 Indwelling Cath Urine Culture - Final NO GROWTH AFTER 48 HOURS Complete 06/22/16 14:30 Foot Left Gram Stain - Final Complete 06/22/16 14:30 Wound Culture - Final Enterococcus Faecalis Complete Exam Narrative Incision site is well coapted with raysa in tact. No drainage. No edema or surrounding erythema Dermatological Wound Assessment : Exudate Amount: None Lang Klein DPM Jul 08, 2016 08:53
--- NOTE | 2016-07-08 11:04 | Infectious Diseases Prog Note ---
Assessment/Plan Assessment/Plan antibiotics : none A 1. 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 renal failure improving 3. MRSA sepsis s/p rx 4. DM 5. fungal UTI s/p rx 6. subdural hematoma P 1. continue off antibiotics Subjective ROS Limited/Unobtainable: Yes Allergies: Coded Allergies: No Known Allergies (Unverified , 05/30/16) Objective Vital Signs Last 24 Hour Vital Signs Date Time Temp Pulse Resp B/P Pulse Ox O2 Delivery O2 Flow Rate FiO2 07/08/16 08:11 97.2 103 20 129/71 95 Nasal Cannula 2.0 07/08/16 08:02 129/71 07/08/16 08:01 103 129/71 07/08/16 08:00 99 07/08/16 06:39 Nasal Cannula 2.0 07/08/16 06:36 96 Nasal Cannula 2.0 07/08/16 04:00 91 07/08/16 04:00 97.0 93 20 124/73 95 Room Air 07/08/16 01:00 90 07/08/16 00:00 97.6 89 20 118/72 94 Room Air 07/07/16 21:01 104 113/74 07/07/16 20:00 96 Nasal Cannula 2.0 28 07/07/16 20:00 97.2 104 20 113/74 93 Room Air 07/07/16 20:00 101 07/07/16 20:00 Nasal Cannula 2.0 28 07/07/16 16:00 97.3 100 21 124/74 95 Room Air 07/07/16 12:00 98.2 93 20 129/79 98 Room Air 07/07/16 12:00 89 Height (Feet): 5 Height (Inches): 8.00 Weight (Pounds): 150 Respiratory/Chest: lungs clear Cardiovascular: normal rate, regular rhythm, no gallop/murmur Abdomen: soft, non tender Extremities: other - feet in dressings, right fingers necrotic Laboratory Tests Test 07/08/16 06:35 White Blood Count 7.5 K/UL (4.8-10.8) Red Blood Count 4.16 M/UL (4.70-6.10) L Hemoglobin 9.5 G/DL (14.2-18.0) L Hematocrit 32.4 % (42.0-52.0) L Mean Corpuscular Volume 78 FL (80-99) L Mean Corpuscular Hemoglobin 22.9 PG (27.0-31.0) L Mean Corpuscular Hemoglobin Concent 29.4 G/DL (32.0-36.0) L Red Cell Distribution Width 20.4 % (11.6-14.8) H Platelet Count 418 K/UL (150-450) Mean Platelet Volume 7.1 FL (6.5-10.1) Neutrophils (%) (Auto) 70.7 % (45.0-75.0) Lymphocytes (%) (Auto) 16.2 % (20.0-45.0) L Monocytes (%) (Auto) 9.9 % (1.0-10.0) Eosinophils (%) (Auto) 2.5 % (0.0-3.0) Basophils (%) (Auto) 0.7 % (0.0-2.0) Sodium Level 134 mEQ/L (135-145) L Potassium Level 4.5 mEQ/L (3.4-4.9) Chloride Level 93 mEQ/L (98-107) L Carbon Dioxide Level 24 mEQ/L (20-30) Anion Gap 17 (5-15) H Blood Urea Nitrogen 8 mg/dL (7-23) Creatinine 0.6 mg/dL (0.7-1.2) L Estimat Glomerular Filtration Rate > 60 mL/min (>60) Glucose Level 115 mg/dL (74-106) H Calcium Level 9.7 mg/dL (8.6-10.2) Magnesium Level 1.7 mg/dL (1.7-2.5) Total Bilirubin 0.3 mg/dL (0.0-1.2) Aspartate Amino Transf (AST/SGOT) 16 U/L (5-40) Alanine Aminotransferase (ALT/SGPT) 12 U/L (3-41) Alkaline Phosphatase 149 U/L (40-129) H Pro-B-Type Natriuretic Peptide 497 pg/mL (0-125) H Total Protein 8.0 g/dL (6.6-8.7) Albumin 3.1 g/dL (3.5-5.2) L Globulin 4.9 g/dL Albumin/Globulin Ratio 0.6 (1.0-2.7) L BLANCO GONZALEZALA Jul 08, 2016 11:04
[2016-07-08 12:00] VITALS: BP 117/80
[2016-07-08] MEDS ORDERED: Sterile Water Irrig 1000ml IRRIG ONE (14:32)
[2016-07-08 16:13] LABS: VITAMIN D 25-OH TOTAL 17 ng/mL (.)
--- NOTE | 2016-07-08 20:00 | General Progress Note ---
Assessment/Plan Assessment/Plan Assessment - Dysphagia - s/p PEG - Anemia - PVD / amputation - Elevated Alk phos / nl GGT Recommendation - GT care - Elevate HOB - Tube feeds - follow labs and exam - d/c planning Subjective Allergies: Coded Allergies: No Known Allergies (Unverified , 05/30/16) Subjective Debilitated minimally interactive labs noted s/p PEG Objective Last 24 Hour Vital Signs Date Time Temp Pulse Resp B/P Pulse Ox O2 Delivery O2 Flow Rate FiO2 07/08/16 12:00 97.5 86 20 117/80 95 Nasal Cannula 2.0 07/08/16 12:00 92 07/08/16 08:11 97.2 103 20 129/71 95 Nasal Cannula 2.0 07/08/16 08:02 129/71 07/08/16 08:01 103 129/71 07/08/16 08:00 99 07/08/16 06:39 Nasal Cannula 2.0 07/08/16 06:36 96 Nasal Cannula 2.0 07/08/16 04:00 91 07/08/16 04:00 97.0 93 20 124/73 95 Room Air 07/08/16 01:00 90 07/08/16 00:00 97.6 89 20 118/72 94 Room Air 07/07/16 21:01 104 113/74 07/07/16 20:00 96 Nasal Cannula 2.0 28 07/07/16 20:00 97.2 104 20 113/74 93 Room Air 07/07/16 20:00 101 07/07/16 20:00 Nasal Cannula 2.0 28 Intake and Output 07/07/16 07/08/16 19:00 07:00 Intake Total 1265 ml 1490 ml Output Total 1400 ml 1000 ml Balance -135 ml 490 ml Free Water 150 ml 150 ml IV Total 940 ml 900 ml Tube Feeding 175 ml 440 ml Output Urine Total 1400 ml 1000 ml # Bowel Movements 3 1 Laboratory Tests 07/08/16 06:35: White Blood Count 7.5, Red Blood Count 4.16L, Hemoglobin 9.5L, Hematocrit 32.4L , Mean Corpuscular Volume 78L, Mean Corpuscular Hemoglobin 22.9L, Mean Corpuscular Hemoglobin Concent 29.4L, Red Cell Distribution Width 20.4H, Platelet Count 418, Mean Platelet Volume 7.1, Neutrophils (%) (Auto) 70.7, Lymphocytes (%) (Auto) 16.2L, Monocytes (%) (Auto) 9.9, Eosinophils (%) (Auto) 2.5, Basophils (%) (Auto) 0.7, Sodium Level 134L, Potassium Level 4.5, Chloride Level 93L, Carbon Dioxide Level 24, Anion Gap 17H, Blood Urea Nitrogen 8, Creatinine 0.6L, Estimat Glomerular Filtration Rate > 60, Glucose Level 115H, Calcium Level 9.7, Magnesium Level 1.7, Total Bilirubin 0.3, Aspartate Amino Transf (AST/SGOT) 16, Alanine Aminotransferase (ALT/SGPT) 12, Alkaline Phosphatase 149H, Pro-B-Type Natriuretic Peptide 497H, Total Protein 8.0, Albumin 3.1L, Globulin 4.9, Albumin/Globulin Ratio 0.6L Height (Feet): 5 Height (Inches): 8.00 Weight (Pounds): 150 Objective Debilitated AA man NCAT supple CTA RRR Soft ND NT (+ ) foot amputations Delirium DL CABRERA Jul 08, 2016 20:00
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
--- NOTE | 2016-07-09 22:19 | Progress Note ---
DATE: 07/08/2016 CARDIOLOGY PROGRESS NOTE SUBJECTIVE: The patient is tolerating feedings via G-tube. He does not seems to have any pain. OBJECTIVE: VITAL SIGNS: Blood pressure 117/80, heart rate 86, respirations 20, and afebrile. NECK: Supple. LUNGS: Clear. CARDIAC: Regular rhythm and rate. Normal S1 and S2 with a fourth heart sound. ABDOMEN: Soft. EXTREMITIES: Revealed bilateral transmetatarsal amputation sites with dressing in place and right hand with distal dry gangrene. G-tube site intact with no drainage. LABORATORY DATA: White count 7.5 and hemoglobin 9.5. Potassium 4.5, sodium 134, chloride 93, bicarbonate 24, BUN 8, and creatinine 0.6. Pro-natriuretic peptide is 497. Albumin is 3.1. Vitamin D is 17. IMPRESSION: 1. Peripheral artery disease with bilateral transmetatarsal amputations due to gangrene. 2. Persistent dry gangrene of the right hand. 3. Secondary sinus tachycardia recovered with improved hemodynamics. 4. Insulin-requiring diabetes status post diabetic ketoacidosis. 5. Mild protein-calorie malnutrition improving. 6. Dysphagia status post G-tube. 7. Diastolic dysfunction with no clinical signs of acute congestive heart failure and decreasing natriuretic peptide levels. 8. Vitamin D deficiency. PLAN: 1. Continue beta-michelle. 2. Vitamin replacement. 3. Nutrition by G-tube. 4. Insulin titration. 5. Local wound care. 6. Anti-platelet and anti-lipid therapy adjunct faculty for medical terminology with LDL goal of less than 70. Morales Serrano M.D. DR: IGNACIO JOB#: [id number] CC:
--- NOTE | 2016-07-18 14:18 | Diagnostic Imaging Report ---
Indication: NG tube Comparison: 06/27/16 Single view of the abdomen obtained Nasogastric tube is within the stomach lumen in satisfactory position. Impression: NG tube satisfactory position
== END 2016-07-08 14:33 | DRG 853 ==
LOC: EDBD 01:44 → EMR 01:55 → 2E 03:48 → INTOOBSV 03:48 → OBSVTOIN 03:48 → EDBEDREQ 05:16 → 4E 19:36 → 2E 06-26 16:53
DX: A41.9 Sepsis, unspecified organism (principal); E43 Unspecified severe protein-calorie malnutrition; N17.9 Acute kidney failure, unspecified; L89.153 Pressure ulcer of sacral region, stage 3; I96 Gangrene, not elsewhere classified; G92 Toxic encephalopathy; M62.82 Rhabdomyolysis; E83.42 Hypomagnesemia; S06.5X0A Traumatic subdural hemorrhage without loss of consciousness, initial encounter; E44.0 Moderate protein-calorie malnutrition; B37.49 Other urogenital candidiasis; S02.0XXA Fracture of vault of skull, initial encounter for closed fracture; E86.0 Dehydration; E86.1 Hypovolemia; Z79.4 Long term (current) use of insulin; G40.909 Epilepsy, unspecified, not intractable, without status epilepticus; K25.9 Gastric ulcer, unspecified as acute or chronic, without hemorrhage or perforation; Z87.820 Personal history of traumatic brain injury; Z86.718 Personal history of other venous thrombosis and embolism; D64.9 Anemia, unspecified; R13.10 Dysphagia, unspecified; N18.9 Chronic kidney disease, unspecified; Z86.14 Personal history of Methicillin resistant Staphylococcus aureus infection; E11.621 Type 2 diabetes mellitus with foot ulcer; D63.8 Anemia in other chronic diseases classified elsewhere; E87.5 Hyperkalemia; E87.6 Hypokalemia; I49.1 Atrial premature depolarization; X58.XXXA Exposure to other specified factors, initial encounter; I13.10 Hypertensive heart and chronic kidney disease without heart failure, with stage 1 through stage 4 chronic kidney disease, or unspecified chronic kidney disease; R00.0 Tachycardia, unspecified; I73.89 Other specified peripheral vascular diseases; Z23 Encounter for immunization
CPT/HCPCS: 36415; 36600; 70450; 71010; 74000; 80048; 80053; 80202; 80299; 81001; 81003; 82306; 82550; 82553; 82803; 82962; 82977; 83605; 83735; 83880; 84484; 85007; 85025; 85610; 85730; 86850; 86900; 86901; 87040; 87070; 87081; 87086; 87181; 87205; 93005; 93970; 94003; 94150; 94760; J1815; Q2036; S5561

== ENCOUNTER 2016-10-03 10:27 | Inpatient (IN) | payer MEDICARE, MEDICAID ==
[~2016-10-03] VITALS: Ht 172.7 cm; Wt 76.2 kg
[2016-10-03 16:14] VITALS: BP 98/69
[2016-10-03] MEDS ORDERED: Lisinopril 20mg tab ORAL SCH (16:30)
[2016-10-03] MEDS: NovoLOG Insulin Flexpen SUBQ SCH ×2 (16:30→20:58)
[2016-10-03] MEDS ORDERED: Acetaminophen 650mg/20.3ml ORAL PRN (16:30)
[2016-10-03] MEDS ORDERED: FISH OIL CAP1000 MG (18:03)
[2016-10-03] MEDS ORDERED: GEMFIBROZIL600 MG GT (18:03)
[2016-10-03] MEDS ORDERED: MULTIVITAMINS1 EAC8 GT (18:03)
[2016-10-03] MEDS ORDERED: ASPIR 8181 MG GT (18:03)
[2016-10-03] MEDS ORDERED: DOXYCYCLINE HY100 M6 GT (18:03)
[2016-10-03] MEDS ORDERED: Vancomycin 1.5 GM in D5W 325 ML IVPB ONE (20:00)
[2016-10-03 20:06] VITALS: BP 96/63
[2016-10-03] MEDS: levETIRAcetam 500mg/5ml Liquid GT SCH (20:41)
[2016-10-03] MEDS: Docusate 100mg/10ml Liq ORAL SCH (20:42)
[2016-10-03] MEDS: Metoprolol 50mg tab NG SCH (20:42)
[2016-10-03] MEDS ORDERED: Levemir Flexpen SUBQ SCH (21:00)
[2016-10-04] VITALS (8 sets, daily range): BP systolic 76–109; BP diastolic 55–98
[2016-10-04] MEDS: NovoLOG Insulin Flexpen SUBQ SCH ×4 (05:48→23:58)
[2016-10-04] MEDS: Metoprolol 50mg tab NG SCH ×2 (09:00→20:53)
[2016-10-04] MEDS: Lisinopril 20mg tab ORAL SCH (09:00)
[2016-10-04] MEDS: Heparin 5000 units/ml inj SUBQ SCH ×2 (09:00→21:00)
[2016-10-04] MEDS: levETIRAcetam 500mg/5ml Liquid GT SCH ×2 (09:26→20:53)
[2016-10-04] MEDS: Vancomycin 1gm/D5W 275ml IVPB SCH ×4 (09:26→23:21)
[2016-10-04] MEDS: Docusate 100mg/10ml Liq ORAL SCH ×2 (09:26→18:18)
[2016-10-04 09:42] LABS: ALANINE AMINOTRANSFERASE 11 U/L (3-41); ALBUMIN/GLOBULIN RATIO 1.1 (1.0-2.7); ANION GAP 14 (5-15); ASPARTATE AMINO TRANSFERASE 12 U/L (5-40); CALCIUM 10.1 mg/dL (8.6-10.2); CARBON DIOXIDE 24 mEQ/L (20-30); CHLORIDE 95 mEQ/L (98-107); CREATININE 0.7 mg/dL (0.7-1.2); GLOMERULAR FILTRATION RATE > 60 mL/min (>60); HEMOLYSIS 0; POTASSIUM 4.3 mEQ/L (3.4-4.9); SODIUM 133 mEQ/L (135-145)
[2016-10-04 09:50] LABS: EOSINOPHILS % (AUTO) 5.3 % (0.0-3.0); LYMPHOCYTES % (AUTO) 30.9 % (20.0-45.0); MEAN CORPUSCULAR HEMOGLOBIN 23.4 PG (27.0-31.0); MEAN CORPUSCULAR HGB CONC 31.1 G/DL (32.0-36.0); MEAN CORPUSCULAR VOLUME 75 FL (80-99); MONOCYTES % (AUTO) 8.1 % (1.0-10.0); NEUTROPHILS % (AUTO) 54.7 % (45.0-75.0); PLATELET COUNT 205 K/UL (150-450); RED BLOOD COUNT 5.37 M/UL (4.70-6.10); RED CELL DISTRIBUTION WIDTH 18.2 % (11.6-14.8); WHITE BLOOD COUNT 5.6 K/UL (4.8-10.8)
[2016-10-04 10:06] LABS: HEMOGLOBIN A1C 5.9 % (< 6.0)
[2016-10-04] MEDS ORDERED: Acetaminophen 650mg/20.3ml GT PRN (11:13)
--- NOTE | 2016-10-04 11:52 | Diagnostic Imaging Report ---
Indication: Chest Pain Comparison: None A single view chest radiograph was obtained. Findings: Cardiomediastinal appearance is within normal limits for age. Sternotomy noted. Pulmonary vascularity is appropriate. The diaphragmatic contour is smooth and costophrenic angles are sharp. No pleural effusions are identified. The bones are unremarkable. Impression: No acute findings
--- NOTE | 2016-10-04 12:15 | General Progress Note ---
Assessment/Plan Status Narrative consent written for completition amp Assessment/Plan pt scheduled for completion amp 10/05/16 at 10 am NPO after MN Subjective Date patient seen: October 04, 2016 Allergies: Coded Allergies: No Known Allergies (Unverified , 05/30/16) Subjective pt scheduled for completion amp of IF/MF/RF right hand Objective Last 24 Hour Vital Signs Date Time Temp Pulse Resp B/P Pulse Ox O2 Delivery O2 Flow Rate FiO2 10/04/16 12:08 97.7 79 19 96/98 99 10/04/16 09:06 92 21 92/59 95 Room Air 10/04/16 09:00 92/59 10/04/16 09:00 92 92/59 10/04/16 08:12 97.7 83 19 76/55 98 10/04/16 04:24 97.2 89 20 101/73 98 Room Air 10/04/16 00:00 97.9 76 16 109/75 97 Room Air 10/03/16 20:42 72 96/63 10/03/16 20:06 97.7 72 16 96/63 95 Room Air 10/03/16 16:14 97.2 67 20 98/69 100 Room Air Intake and Output 10/03/16 10/04/16 19:00 07:00 Intake Total 50 ml 935.0 ml Balance 50 ml 935.0 ml Intake Oral 0 ml Free Water 60 ml IV Total 325.0 ml Tube Feeding 50 ml 550 ml # Voids 1 3 # Bowel Movements 2 2 Laboratory Tests 10/04/16 08:45: White Blood Count 5.6, Red Blood Count 5.37, Hemoglobin 12.6L, Hematocrit 40.5L , Mean Corpuscular Volume 75L, Mean Corpuscular Hemoglobin 23.4L, Mean Corpuscular Hemoglobin Concent 31.1L, Red Cell Distribution Width 18.2H, Platelet Count 205, Mean Platelet Volume 8.0, Neutrophils (%) (Auto) 54.7, Lymphocytes (%) (Auto) 30.9, Monocytes (%) (Auto) 8.1, Eosinophils (%) (Auto) 5.3H, Basophils (%) (Auto) 1.0, Prothrombin Time 10.0, Prothromb Time International Ratio 1.0, Sodium Level 133L, Potassium Level 4.3, Chloride Level 95L, Carbon Dioxide Level 24, Anion Gap 14, Blood Urea Nitrogen 14, Creatinine 0.7, Estimat Glomerular Filtration Rate > 60, Glucose Level 101, Hemoglobin A1c 5.9, Calcium Level 10.1, Total Bilirubin 0.3, Aspartate Amino Transf (AST/SGOT) 12, Alanine Aminotransferase (ALT/SGPT) 11, Alkaline Phosphatase 75, Total Protein 7.0, Albumin 3.7, Globulin 3.3, Albumin/Globulin Ratio 1.1 Height (Feet): 5 Height (Inches): 8.00 Weight (Pounds): 168 Objective right IF/MF/RF dry necrosis of distal finger tips FELICIA BELTRÁN October 04, 2016 12:15
--- NOTE | 2016-10-04 12:19 | History and Physical Report ---
DATE OF ADMISSION: 10/03/2016 CHIEF COMPLAINT: Sepsis and cellulitis and gangrene of the right hand. HISTORY OF PRESENT ILLNESS: The patient is a very pleasant, but unfortunate 56-year-old male. He has a history of traumatic brain injury, encephalopathy, diabetes, has a history of transmetatarsal amputation of both feet due to gangrene. The patient was previously hospitalized with sepsis and developed gangrene of the hands and fingers knee required amputation. The right hand was managed conservatively with observation, but gangrene has not improved. This patient has developed subjective fevers and chills and has also worsening pain at the tips of the fingers with the hand of the gangrene and he was concerned about possible active infection. The case was discussed with the patient. Plastic surgery has been recommended admission, IV antibiotics, and evaluate him for possible amputation. PAST MEDICAL HISTORY: As above. PAST SURGICAL HISTORY: Includes a history of G-tube. CURRENT MEDICATIONS: Reconciled and reviewed. ALLERGIES: None. SOCIAL HISTORY: Negative for tobacco, ethanol, or drugs. FAMILY HISTORY: None. REVIEW OF SYSTEMS: General: Positive fevers and chills, but no night sweats. HEENT: No headaches or visual changes. Cardiopulmonary: No chest pain or shortness of breath. Gastrointestinal: No nausea or vomiting. Genitourinary: No urgency or frequency. Musculoskeletal: No joint pain or swelling. No evidence of seizures. PHYSICAL EXAMINATION: VITAL SIGNS: Temperature 97.7, pulse 83, respirations 19, and blood pressure 76/55. GENERAL: The patient is well-developed male, in no apparent distress. HEART: Regular rate and rhythm. LUNGS: Clear. ABDOMEN: Soft, nontender, and nondistended. G-tube site is clean. EXTREMITIES: Without clubbing or cyanosis. There has been bilateral transmetatarsal amputation that are well healed. There is gangrene at the second, third, and fourth finger on the right hand. There is some erythema and swelling noted. LABORATORY DATA: Labs are pending. ASSESSMENT: This is an unfortunate male with history of traumatic brain injury, transmetatarsal amputation of the feet, diabetes, and status post G-tube admitted with cellulitis and possible white gangrene of the right hand involving the second, third, and fourth digits. PLAN: IV antibiotics. consultation for possible surgical debridement, amputation of the gangrenous fingers, cardiology clearance to be obtained. We will follow up pending labs. Plan of care was discussed with the patient's mother and his sister. Raul Del Cid M.D. DR: LOUIE JOB#: [id number] CC:
--- NOTE | 2016-10-04 14:07 | Wound Care Consultation ---
Wound Assessment Wound Assessment #1: Wound Present on Admission: Yes New Wound: No Status Change of Wound: No Wound Location Body Site Modif: mid Wound Location Body Site: sacral Wound Type: pressure ulcer Trista Test: Does not Trista Pressure Ulcer Stage: III Wound Thickness: Full Thickness Wound Length: 3.0 Wound Width: 2.0 Wound Depth: 0.3 Percent of Wound [place]/Red: 100 Wound Drainage Description: Serosanguineous Wound Drainage Amount: Scant Wound Drainage Odor: None/Absent Tissue Surrounding Wound: Erythemic Wound General Appearance: Reddened Wound Assessment #2: Wound Number: #2 Wound Present on Admission: Yes New Wound: No Status Change of Wound: No Wound Location Body Site Modif: mid Wound Location Body Site: coccyx Wound Type: pressure ulcer Trista Test: Does not Trista Pressure Ulcer Stage: II - scattered small stage II pressure ulcers Wound Thickness: Partial Thickness Percent of Wound [place]/Red: 100 Wound Drainage Description: Serosanguineous Wound Drainage Amount: Scant Wound Drainage Odor: None/Absent Tissue Surrounding Wound: Erythemic Wound General Appearance: Reddened Wound Assessment #3: Wound Number: #3 Wound Present on Admission: Yes New Wound: No Status Change of Wound: No Wound Location Body Site: finger - 2nd, 3rd and 4th Wound Type: other - gangrene of the right fingers Trista Test: Does not Trista Wound Thickness: Full Thickness Percent of Wound Black/Brown: 100 Wound Drainage Amount: None Wound Drainage Odor: None/Absent Tissue Surrounding Wound: Indurated Wound General Appearance: Blackened, Open to air Wound Assessment #4: Wound Number: #4 Wound Present on Admission: Yes New Wound: No Status Change of Wound: No Wound Location Body Site Modif: left Wound Location Body Site: trochanter Wound Type: pressure ulcer Trista Test: Does not Trista Wound Thickness: Full Thickness - sacr tissue Wound Length: 3.5 Wound Width: 3.5 Wound Depth: utd Percent of Wound [place]/Red: 100 Wound Drainage Amount: None Wound Drainage Odor: None/Absent Tissue Surrounding Wound: Intact Wound General Appearance: Asymptomatic, Reddened Wound Assessment #5: Wound Number: #5 Wound Present on Admission: Yes New Wound: No Status Change of Wound: No Wound Location Body Site Modif: left Wound Location Body Site: heel Wound Type: pressure ulcer Trista Test: Does not Trista Pressure Ulcer Stage: I Wound Length: 1.0 Wound Width: 1.0 Percent of Wound [place]/Red: 100 Wound Drainage Amount: None Wound Drainage Odor: None/Absent Tissue Surrounding Wound: Erythemic Wound General Appearance: Reddened Wound Comment #1 Sacral resurfaced stage III pressure ulcer #2 Coccyx scattered stage II pressure ulcers #3 Left trochanter full thickness scar tissue pressure ulcer #4 Left heel stage I pressure ulcer #5 Gangrene on the right 2nd, 3rd and 4th fingers Recommendation -Sacral and coccyx area pressure ulcers Cleanse with saline, pat dry, apply Triad cream, cover with Bordered gauze daily and PRN soiled/dislodged -Right 2nd,3rd and 4th fingers [place] with Betadine daily and leave area open to air -Offload both heels -Heel protector on both heels -Turn and reposition -Keep clean and dry -Optimize nutrition -Low air loss overlay mattress -Assess and f/u accordingly for any changes BIN NOLAND RN October 04, 2016 14:07
--- NOTE | 2016-10-04 17:01 | Cardiology Report ---
APPROVED REPORT EXAM: Two-dimensional and M-mode echocardiogram with Doppler and color Doppler. INDICATION Atrial flutter M-Mode DIMENSIONS IVSd1.1 (0.7-1.1cm)Left Atrium (MM)4.8 (1.6-4.0cm) LVDd3.6 (3.5-5.6cm)Aortic Root2.7 (2.0-3.7cm) PWd1.0 (0.7-1.1cm)Aortic Cusp Exc.1.6 (1.5-2.0cm) LVDs3.0 (2.5-4.0cm) PWs1.4 cm Normal left ventricular chamber size, systolic function and wall motion. Left ventricular ejection fraction estimated to be 50-55 %. No evidence of ventricular hypertrophy. Anterior Echo-free space, may be due to pericardial fat or effusion. Left atrium is at upper normal limits. Right cardiac chamber size is within normal limits. Mild focal aortic valve sclerosis with adequate cusp excursion. Mildly thickened mitral valve leaflets with normal excursion. Mild mitral annulus and aortic root calcification. Normal pulmonic valve structure. Normal tricuspid valve structure. IVC at normal size with physiologic collapse. A color flow and spectral Doppler study was performed and revealed: No aortic regurgitation. No mitral regurgitation. Mitral diastolic velocities suggest reduced left ventricular relaxation (Grade I). Trace tricuspid regurgitation. Tricuspid systolic velocities suggests peak right ventricular systolic pressure of 8 mmHg. No pulmonic regurgitation present.
[2016-10-04] MEDS: Levemir Flexpen SUBQ SCH (18:21)
[2016-10-04] MEDS: LORazepam 1mg tab GT PRN (20:51)
[2016-10-04] MEDS ORDERED: Tubing IV Secondary IV ONE (21:04)
[2016-10-04] MEDS ORDERED: NS 275ml ONE (21:04)
[2016-10-05] VITALS (11 sets, daily range): BP systolic 77–127; BP diastolic 46–94
[2016-10-05] MEDS: NovoLOG Insulin Flexpen SUBQ SCH ×3 (05:47→18:00)
[2016-10-05] MEDS ORDERED: Heparin 2000 units/Ns 1000ml INJ PRN (07:00)
[2016-10-05] MEDS ORDERED: Sodium Bicarbonate 8.4% 50ml Inj IV ONE (07:00)
[2016-10-05] MEDS ORDERED: Lidocaine 1% Plain 30 ml INJ PRN (07:00)
[2016-10-05] MEDS: Heparin 5000 units/ml inj SUBQ SCH ×2 (09:00→20:29)
[2016-10-05] MEDS: Lisinopril 20mg tab ORAL SCH (09:17)
[2016-10-05] MEDS: levETIRAcetam 500mg/5ml Liquid GT SCH ×2 (09:18→20:41)
[2016-10-05] MEDS: Metoprolol 50mg tab NG SCH ×2 (09:18→20:28)
[2016-10-05] MEDS: Docusate 100mg/10ml Liq ORAL SCH (09:18)
--- NOTE | 2016-10-05 09:27 | Cardiology Report ---
APPROVED REPORT EKG Measurement Heart [id number] Normal sinus rhythm Septal infarct, age undetermined T wave abnormality, consider inferior ischemia Abnormal ECG
[2016-10-05] MEDS ORDERED: Bacitracin Oint 15gm Tube TOPIC ONE (09:44)
[2016-10-05] MEDS ORDERED: Bacitracin 50000 Units Vial ONE (09:44)
[2016-10-05] MEDS ORDERED: Propofol 10mg/ml 20ml IV ONE (10:00)
[2016-10-05] MEDS ORDERED: Midazolam 2mg/2ml Inj ONE (10:00)
[2016-10-05] MEDS ORDERED: LR 1000ml ONE (10:00)
[2016-10-05] MEDS ORDERED: fentaNYL 100 mcg/2 mL IV ONE (10:00)
--- NOTE | 2016-10-05 10:14 | Pre-Procedure Note/Attestation ---
Pre-Procedure Note/Attestation Complete Prior to Procedure Planned Procedure: right Procedure Narrative: right index, middle and ring finger completion amputation of distal finger tips Indications for Procedure Pre-Operative Diagnosis: necrosis of right index, middle and ring distal finger tips Attestation I attest that I discussed the nature of the procedure; its benefits; risks and complications; and alternatives (and the risks and benefits of such alternatives ), prior to the procedure, with the patient (or the patient's legal fundraising sale representative). I attest that, if there was a reasonable possibility of needing a blood transfusion, the patient (or the patient's legal fundraising sale representative) was given the [facility] standardized written summary, pursuant to the [place] Blood Safety Act ([place] Health and Safety Code # 1645, as amended). I attest that I re-evaluated the patient just prior to the surgery and that there has been no change in the patient's H&P FELICIA BELTRÁN October 05, 2016 10:14
[2016-10-05] MEDS ORDERED: Lidocaine 1% 10mg/ml/Epi 0.005mg/ml 30ml vial INJ ONE (10:40)
[2016-10-05] MEDS ORDERED: LR 1000ml 1,000 ML IVLG SCH (10:50)
--- NOTE | 2016-10-05 10:50 | Anethesia Preoperative Eval ---
Anesthesia Pre-op PMH/ROS General Date of Evaluation: October 05, 2016 Time of Evaluation: 10:05 Anesthesiologist: Esme ASA Score: ASA 3 Mallampati Score Class I : Soft palate, uvula, fauces, pillars visible Class II: Soft palate, uvula, fauces visible Class III: Soft palate, base of uvula visible Class IV: Only hard plate visible Mallampati Classification: Class II Surgeon: Emelyn Diagnosis: R hand gangrene Surgical Procedure: R 2 3 4 finger amputation Anesthesia History: none Family History: no anesthesia problems Allergies: Coded Allergies: No Known Allergies (Unverified , 05/30/16) Medications: see eMAR Past Medical History Cardiovascular: Reports: CAD, HTN, other - PVD vasculopath, Denies: [place], arrhythmia, valve dz Pulmonary: Denies: COPD, [place], asthma, other Gastrointestinal/Genitourinary: Reports: GERD, other - dysphagia PEG tube meenak[place] [facility] Neurologic/Psychiatric: Reports: dementia, depression/anxiety, other - encephalopathy Endocrine: Reports: DM, Denies: hypothyroidism, other, steroids HEENT: Denies: [place] (L), [place] (R), cataract (L), cataract (R), glaucoma, other Hematology/Immune: Reports: DVT - h/o PE, anemia - mild, Denies: bleeding disorder, other Musculoskeletal/Integumentary: Denies: DDD, DJD, OA, RA, edema, other PMH Narrative: as above PSxH Narrative: Bilateral transmetatarsal amputation Anesthesia Pre-op Phys. Exam Physician Exam Last Vital Signs Date Time Temp Pulse Resp B/P Pulse Ox O2 Delivery O2 Flow Rate FiO2 10/05/16 09:18 74 113/74 10/05/16 08:00 98.9 20 97 Room Air Constitutional: NAD Neurologic: other - unable to obtaine Cardiovascular: RRR Respiratory: CTA Gastrointestinal: S/NT/ND Airway Exam Mallampati Score: Class III MO: limited Neck: stiff ROM: limited Teeth: missing Dentures: no lower, no upper Anesthesia Pre-op A/P Labs see chart Risk Assessment & Plan Assessment: ASA 3 Plan: GA with LMA Status Change Before Surgery: No Pre-Antibiotics Drug: as scheduled TEAGAN BERMAN M.D. October 05, 2016 10:50
[2016-10-05] MEDS ORDERED: DiphenhydrAMINE 50mg/ml Inj IVP PRN (11:00)
[2016-10-05] MEDS ORDERED: Hydromorphone 0.5mg/0.5ml inj IVP PRN ×4 (11:00→20:30)
[2016-10-05] MEDS ORDERED: Meperidine 25mg/0.5ml Inj IV PRN (11:00)
[2016-10-05] MEDS ORDERED: Midazolam 2mg/2ml Inj IVP PRN (11:00)
--- NOTE | 2016-10-05 11:52 | Brief Operative Note ---
Immediate Post Operative Note Operative Note Chief Complaint: necrotif MF,IF, RF right hand Pre-op Diagnosis: necrosis of right index, middle and ring distal finger tips Procedure: amputation of right IF/MF/RF through middle phalanx Post-op Diagnosis: same Post-op Diagnosis: same as pre-op Surgeon: Emelyn Anesthesia: general, regional Specimen: yes Complications: none Condition: stable Drains: none Packing: kerlex wrap Implant(s) used?: No FELICIA BELTRÁN October 05, 2016 11:52
--- NOTE | 2016-10-05 13:24 | Immediate Post-Op Evaluation ---
Immediate Post-Op Evalulation Immediate Post-Op Evalulation Procedure: Amputation of R 2 3 4-th fingers Date of Evaluation: October 05, 2016 Time of Evaluation: 11:47 IV Fluids: 800 Blood Products: none Estimated Blood Loss: min Urinary Output: none Blood Pressure Systolic: 96 Blood Pressure Diastolic: 48 Pulse Rate: 74 Respiratory Rate: 20 O2 Sat by Pulse Oximetry: 99 Temperature (Fahrenheit): 97.6 Pain Score (1-10): 2 Nausea: No Vomiting: No Complications none Patient Status: awake, patent, none Hydration Status: adequate TEAGAN BERMAN M.D. October 05, 2016 13:24
[2016-10-05] MEDS: Vancomycin 1gm/D5W 275ml IVPB SCH ×2 (13:31)
[2016-10-05] MEDS: LORazepam 1mg tab GT PRN ×2 (13:42→20:10)
[2016-10-05] MEDS: Docusate 100mg/10ml Liq NG SCH (18:05)
[2016-10-05] MEDS ORDERED: HYDROmorphone 1mg/ml Carpuject IVP PRN (20:00)
[2016-10-05] MEDS: HYDROmorphone 1mg/ml Carpuject IVP PRN (21:02)
--- NOTE | 2016-10-05 23:38 | Operative Note - Dictated ---
DATE OF OPERATION: 10/05/2016 NOTE: "POOR AUDIO QUALITY" SURGEON: Morales Dunaway M.D. TRUCKER SURGEON: None. PREOPERATIVE DIAGNOSIS: Necrotic fingertips of the right index, middle, and ring fingers to the distal interphalangeal joint. OPERATION PERFORMED: Completion amputation of fingers the middle phalanx of each finger with on each finger. COMPLICATION: None. ESTIMATED BLOOD LOSS: Minimal. POSITION: Supine. ANESTHESIA: General. DESCRIPTION OF PROCEDURE: The family was consented for the patient due to his mental status preoperatively. Discussion with need for amputation the point of demarcation was noted. Family agreed to proceed. The patient was brought to the operating room condition. Time-out was performed. Right hand was prepped and draped in a sterile fashion. I began by using approximately 10 mL of 1% lidocaine for a wrist block as well as finger block both on each of the index, middle, and ring finger. Following this, attention was then directed towards the index finger. A finger tourniquet was placed. A #15 blade scalpel was used to excise just distal to the area of nonviable tissue down to the bone. The nonviable portion of the finger was removed and passed off the table. At this point, a rongeur was used to rongeur back the bone removing the articular surface of the DIP and smoothing out the bone surface. The space was then irrigated with antibiotic infused saline followed by 3-0 Vicryl sutures to perform bilaterally. The flexor tendons were then approximated using 3-0 Vicryl. At this point, the skin was closed using mattress sutures, 3-0 Nylon sutures followed by running baseball stitch of the finger and the end of the finger to complete the amputation. Attention was then directed towards the middle finger. The middle finger was excised using scalpel just distal to the nonviable tissue by rongeuring back the articular surface of the middle phalanx. At this point, the cavity was irrigated with antibiotic solution. were performed bilaterally using 3-0 Vicryl and flexor tendons were reapproximated with 3-0 Vicryl. The skin edges were then freshened up and closed using mattress sutures of 3-0 nylon followed by baseball stitch at the distal end. Attention was then directed towards the ring finger. Same procedure was performed. A #15 blade scalpel was used to excise nonviable fingertip just distal to the nonviable tissue followed by rongeuring back articular surface of the middle phalanx followed by irrigation of the wound space and then performed bilaterally with 3-0 Vicryl. The flexor and extensor tendons were reapproximated using 3-0 Vicryl. By freshing up the wound edges, and close of the wound edges using interrupted 3-0 mattress sutures followed by 3-0 baseball stitch. Each of the fingers at the finger tourniquet the procedure followed by removal of the tourniquet and observation of flow to the distal aspect of each . The fingers were dressed using Xeroform followed by fluffs and 2 x 2 gauze followed by Kerlix wrap and followed by [place]. Before dressing, another 10 mL of 1% lidocaine with epinephrine was used for local anesthetic in the fingertips as well as the rest. The patient tolerated the procedure well. Sponge and needle counts were correct x2 and extubated in the operative room and taken to recovery room in stable condition. Morales Dunaway M.D. DR: Jeane JOB#: [id number] CC:
[2016-10-06] VITALS (7 sets, daily range): BP systolic 97–150; BP diastolic 67–82
[2016-10-06] MEDS: Levemir Flexpen SUBQ SCH ×2 (00:01→21:37)
[2016-10-06] MEDS: NovoLOG Insulin Flexpen SUBQ SCH ×5 (00:02→23:52)
[2016-10-06] MEDS: Vancomycin 1gm/D5W 275ml IVPB SCH ×6 (00:08→21:35)
[2016-10-06] MEDS: LORazepam 1mg tab GT PRN ×2 (00:18→04:14)
[2016-10-06] MEDS: HYDROmorphone 1mg/ml Carpuject IVP PRN ×4 (01:16→16:16)
--- NOTE | 2016-10-06 08:29 | General Progress Note ---
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 Subjective ROS Limited/Unobtainable: No Constitutional: Reports: malaise, weakness HEENT: Reports: no symptoms Cardiovascular: Reports: no symptoms Respiratory: Reports: no symptoms Gastrointestinal/Abdominal: Reports: no symptoms Genitourinary: Reports: no symptoms Neurologic/Psychiatric: Reports: pre-existing deficit Endocrine: Reports: no symptoms Hematologic/Lymphatic: Reports: no symptoms Allergies: Coded Allergies: No Known Allergies (Unverified , 05/30/16) All Systems: reviewed and negative except above Subjective c/o pain. on iv pain rx. elevated hr. s/p amputation of gangrenous fingers. Objective Last 24 Hour Vital Signs Date Time Temp Pulse Resp B/P Pulse Ox O2 Delivery O2 Flow Rate FiO2 10/06/16 07:45 97.7 122 21 97/67 92 Room Air 10/06/16 04:00 96.8 121 17 118/74 92 Room Air 10/06/16 00:00 97.2 110 20 116/82 98 Room Air 10/05/16 20:28 104/69 10/05/16 20:00 96.6 71 18 104/69 97 Room Air 10/05/16 16:00 96.3 71 20 102/64 93 Room Air 10/05/16 13:58 97.6 10/05/16 13:24 74 20 99 10/05/16 12:27 98.0 65 20 104/65 99 Room Air 10/05/16 12:14 65 20 91/62 95 Room Air 10/05/16 12:00 60 20 88/56 95 Room Air 10/05/16 11:52 78 20 86/58 95 Room Air 10/05/16 11:47 65 20 82/59 99 Simple Mask 8.0 10/05/16 11:42 98.0 67 20 77/46 99 Simple Mask 8.0 10/05/16 09:18 74 113/74 5/11/17 09:17 113/74 Intake and Output 10/05/16 10/06/16 19:00 07:00 Intake Total 1525.000 ml 800 ml Balance 1525.000 ml 800 ml Free Water 200 ml IV Total 1475.000 ml Tube Feeding 50 ml 600 ml # Voids 2 Height (Feet): 5 Height (Inches): 8.00 Weight (Pounds): 168 General Appearance: WD/WN, alert, confused Neck: supple Cardiovascular: tachycardia Respiratory/Chest: lungs clear, normal breath sounds, no respiratory distress Abdomen: normal bowel sounds, non tender, soft, no organomegaly Edema: no edema noted Arm (L), no edema noted Arm (R), no edema noted Leg (L), no edema noted Leg (R), no edema noted Pedal (L), no edema noted Pedal (R), no edema noted Generalized Neurologic: responsive DARYN JEREZ October 06, 2016 08:29
[2016-10-06] MEDS: Lisinopril 20mg tab GT SCH (09:00)
[2016-10-06] MEDS: Metoprolol 50mg tab NG SCH ×2 (09:00→21:34)
[2016-10-06] MEDS: Docusate 100mg/10ml Liq NG SCH ×2 (09:05→17:59)
[2016-10-06] MEDS: levETIRAcetam 500mg/5ml Liquid GT SCH ×2 (09:05→21:34)
[2016-10-06] MEDS: Heparin 5000 units/ml inj SUBQ SCH ×2 (09:06→21:36)
[2016-10-06] MEDS ORDERED: Lidocaine 1% Plain 30 ml INJ PRN (09:30)
[2016-10-06] MEDS ORDERED: Heparin 2000 units/Ns 1000ml IV PRN (09:30)
[2016-10-06] MEDS ORDERED: Sodium Bicarbonate 8.4% 50ml Inj IV ONE (09:30)
[2016-10-06 11:57] LABS: BASOPHILS % (AUTO) 0.9 % (0.0-2.0); EOSINOPHILS % (AUTO) 0.6 % (0.0-3.0); LYMPHOCYTES % (AUTO) 9.3 % (20.0-45.0); MEAN CORPUSCULAR HEMOGLOBIN 23.9 PG (27.0-31.0); MEAN CORPUSCULAR HGB CONC 31.8 G/DL (32.0-36.0); MEAN CORPUSCULAR VOLUME 75 FL (80-99); MEAN PLATELET VOLUME 7.9 FL (6.5-10.1); MONOCYTES % (AUTO) 10.1 % (1.0-10.0); NEUTROPHILS % (AUTO) 79.1 % (45.0-75.0); PLATELET COUNT 199 K/UL (150-450); RED BLOOD COUNT 4.77 M/UL (4.70-6.10); RED CELL DISTRIBUTION WIDTH 18.1 % (11.6-14.8); WHITE BLOOD COUNT 9.3 K/UL (4.8-10.8)
[2016-10-06 12:08] LABS: ALANINE AMINOTRANSFERASE 11 U/L (3-41); ALBUMIN/GLOBULIN RATIO 1.2 (1.0-2.7); ANION GAP 12 (5-15); ASPARTATE AMINO TRANSFERASE 14 U/L (5-40); CALCIUM 9.6 mg/dL (8.6-10.2); CARBON DIOXIDE 27 mEQ/L (20-30); CHLORIDE 95 mEQ/L (98-107); CREATININE 0.9 mg/dL (0.7-1.2); GLOMERULAR FILTRATION RATE > 60 mL/min (>60); HEMOLYSIS 11; POTASSIUM 4.5 mEQ/L (3.4-4.9); SODIUM 134 mEQ/L (135-145); TOTAL PROTEIN 6.9 g/dL (6.6-8.7); TROPONIN I < 0.30 ng/mL (<=0.30)
--- NOTE | 2016-10-06 12:25 | 48 Hour Post Anesthesia Eval ---
Post Anesthesia Evaluation Procedure: Amputation of R 2 3 4-th fingers Date of Evaluation: October 06, 2016 Time of Evaluation: 12:24 Blood Pressure Systolic: 102 0: 56 Pulse Rate: 74 Respiratory Rate: 22 Temperature (Fahrenheit): 97.4 O2 Sat by Pulse Oximetry: 98 Airway: patent Nausea: No Vomiting: No Pain Intensity: 2 Hydration Status: adequate Cardiopulmonary Status: stable Mental Status/LOC: patient returned to baseline Follow-up Care/Observations: n/a Post-Anesthesia Complications: none Follow-up care needed: N/A TEAGAN BERMAN M.D. October 06, 2016 12:25
--- NOTE | 2016-10-06 13:39 | General Progress Note ---
Assessment/Plan Assessment/Plan daily xeroform and kerlex wrap to amp fingers. OK per plastics for D/C to snf Subjective Date patient seen: October 06, 2016 ROS Limited/Unobtainable: Yes Allergies: Coded Allergies: No Known Allergies (Unverified , 05/30/16) Subjective s/p completion amp of IF/MF/RF right hand Objective Last 24 Hour Vital Signs Date Time Temp Pulse Resp B/P Pulse Ox O2 Delivery O2 Flow Rate FiO2 10/06/16 12:25 74 22 98 10/06/16 11:17 97.7 111 18 102/69 95 Room Air 10/06/16 09:00 97/67 10/06/16 09:00 122 97/67 10/06/16 07:45 97.7 122 21 97/67 92 Room Air 10/06/16 04:00 96.8 121 17 118/74 92 Room Air 10/06/16 00:00 97.2 110 20 116/82 98 Room Air 10/05/16 20:28 104/69 10/05/16 20:00 96.6 71 18 104/69 97 Room Air 10/05/16 16:00 96.3 71 20 102/64 93 Room Air 10/05/16 13:58 97.6 Intake and Output 10/05/16 10/06/16 19:00 07:00 Intake Total 1525.000 ml 800 ml Balance 1525.000 ml 800 ml Free Water 200 ml IV Total 1475.000 ml Tube Feeding 50 ml 600 ml # Voids 2 Laboratory Tests 10/06/16 11:20: White Blood Count 9.3, Red Blood Count 4.77, Hemoglobin 11.4L, Hematocrit 35.8L , Mean Corpuscular Volume 75L, Mean Corpuscular Hemoglobin 23.9L, Mean Corpuscular Hemoglobin Concent 31.8L, Red Cell Distribution Width 18.1H, Platelet Count 199, Mean Platelet Volume 7.9, Neutrophils (%) (Auto) 79.1H, Lymphocytes (%) (Auto) 9.3L, Monocytes (%) (Auto) 10.1H, Eosinophils (%) (Auto) 0.6, Basophils (%) (Auto) 0.9, Sodium Level 134L, Potassium Level 4.5, Chloride Level 95L, Carbon Dioxide Level 27, Anion Gap 12, Blood Urea Nitrogen 16, Creatinine 0.9, Estimat Glomerular Filtration Rate > 60, Glucose Level 133H, Calcium Level 9.6, Total Bilirubin 0.2, Aspartate Amino Transf (AST/SGOT) 14, Alanine Aminotransferase (ALT/SGPT) 11, Alkaline Phosphatase 73, Troponin I < 0.30, Total Protein 6.9, Albumin 3.8, Globulin 3.1, Albumin/Globulin Ratio 1.2, Thyroid Stimulating Hormone (TSH) 1.170 Height (Feet): 5 Height (Inches): 8.00 Weight (Pounds): 168 Objective right IF/MF/RF amp sites C/D/I FELICIA BELTRÁN October 06, 2016 13:39
[2016-10-06] MEDS ORDERED: HYDROmorphone 1mg/ml Carpuject IVP PRN (20:37)
[2016-10-06] MEDS ORDERED: Epogen (for non ESRD use) SUBQ SCH (21:00)
[2016-10-07] VITALS: BP 108/77
[2016-10-07 04:00] VITALS: BP 126/105
[2016-10-07] MEDS: NovoLOG Insulin Flexpen SUBQ SCH ×2 (06:00→12:00)
[2016-10-07] MEDS: levETIRAcetam 500mg/5ml Liquid GT SCH (08:25)
[2016-10-07] MEDS: Docusate 100mg/10ml Liq NG SCH (08:25)
[2016-10-07] MEDS: Heparin 5000 units/ml inj SUBQ SCH (08:26)
[2016-10-07] MEDS: HYDROmorphone 1mg/ml Carpuject IVP PRN ×2 (08:27→13:24)
[2016-10-07 08:29] VITALS: BP 125/83
[2016-10-07] MEDS: Vancomycin 1gm/D5W 275ml IVPB SCH ×2 (08:43)
[2016-10-07] MEDS: Lisinopril 20mg tab GT SCH (09:00)
[2016-10-07] MEDS: Metoprolol 50mg tab NG SCH (09:18)
[2016-10-07] MEDS ORDERED: CEPHALEXIN500 MG ORAL (10:59)
[2016-10-07 11:56] VITALS: BP 116/72
[2016-10-07] MEDS ORDERED: NS 550ML IV ONE (15:10)
[2016-10-07] MEDS ORDERED: NS Irrig 1000ml ONE (15:10)
[2016-10-07] MEDS ORDERED: NS 275ml ONE (15:10)
--- NOTE | 2016-10-08 04:09 | Discharge Summary ---
DATE OF ADMISSION: 10/03/2016 DATE OF DISCHARGE: 10/07/2016 ADMISSION DIAGNOSES: 1. Right hand sepsis. 2. History of traumatic brain injury. 3. Encephalopathy. 4. Hypertension. 5. Diabetes. DISCHARGE DIAGNOSES: 1. Right hand sepsis. 2. History of traumatic brain injury. 3. Encephalopathy. 4. Hypertension. 5. Diabetes. HOSPITAL COURSE: The patient was admitted with complaints of gangrene of the right hand the second, third, and fourth digits. He has been conservatively, but had developed worsening pain, subjective fevers, and chills. He was admitted and started on IV antibiotics. Plastic surgery consultation. Amputation was recommended. The patient underwent a uncomplicated amputation of the second, third, and fourth digits, which he tolerated well. He only had some postoperative pain. On discharge, he is doing well. He will be discharged on prophylactic antibiotics for additional week. To follow up with wound care in a week. DISCHARGE MEDICATIONS: Please see discharge medication list for discharge medications. DIET: G-tube feedings. ACTIVITY: Ad-Darcy. Raul Del Cid M.D. DR: Enrique JOB#: [id number] CC:
--- NOTE | 2016-10-09 02:19 | Consultation ---
DATE OF CONSULTATION: 10/03/2016 CARDIOLOGY CONSULTATION: CONSULTING PHYSICIAN: Morales Serrano M.D. ATTENDING PHYSICIAN: Raul Del Cid M.D. REQUESTING PHYSICIAN: Raul Del Cid M.D. REASON FOR CONSULTATION: Gangrenous right upper extremity. HISTORY OF PRESENT ILLNESS: This is a 56-year-old male. He has history of traumatic brain injury with chronic encephalopathy, diabetes mellitus, and severe peripheral artery disease that resulted in transmetatarsal amputations of both feet due to gangrene. He has been convalescing at a residential facility. The patient also suffered gangrene of his hands and fingers and has been managed conservatively, although the wounds have progressed with the patient developing fevers, chills, and increasing pain. I have been asked to assist with cardiovascular management in anticipation of surgery. SOCIAL HISTORY: Negative for smoking, alcohol, or substance abuse. FAMILY HISTORY: Noncontributory. ALLERGIES: None known. MEDICATIONS: Medications prior to admission, reviewed and reconciled. PAST MEDICAL HISTORY: Includes traumatic brain injury, encephalopathy, type 2 diabetes mellitus, peripheral artery disease with gangrene as noted above, dysphagia with gastrostomy tube. REVIEW OF SYSTEMS: He has had fevers and chills. No shortness of breath. No history of blood clots in the legs. No asthma. No history of myocardial infarction. He has had atrial arrhythmias in the past. There is no history of hypertension known. He has a G-tube for nutrition. There is no history of prostate cancer. He does have chronic kidney disease. There is no history of seizures. There is no known history of thyroid disorder. His diabetes is managed with a combination regimen depending on his clinical state. PHYSICAL EXAMINATION: VITAL SIGNS: Afebrile, blood pressure 96/63, pulse 72, respiratory rate 16, and oxygen saturation on room air 95%. HEENT: Conjunctivae are pink. Oropharynx clear. NECK: Supple. No accessory muscle use. LUNGS: Clear. CARDIAC: Regular rhythm and rate. Normal S1, S2 with no murmur, rub, or gallop. ABDOMEN: Soft. G-tube intact. EXTREMITIES: Reveal sclerosis of the digits of the right second, third, and fourth fingers with gangrenous changes. Bilateral transmetatarsal amputation sites are well healed. There is some skin breakdown which is outlined by the skin care nurse in her note. LABORATORY DATA: Laboratories are pending. EKG is reviewed and shows sinus rhythm, septal infarction of indeterminate age, and possible ischemia in the inferior leads manifesting with T-wave abnormalities. IMPRESSION: 1. Right upper extremity gangrenous fingers, #2, #3, and #4. 2. Type 2 diabetes mellitus. 3. Probable sepsis with early shock. 4. Dysphagia with gastrostomy tube. 5. Chronic encephalopathy due to prior traumatic brain injury. 6. Abnormal electrocardiogram with no change from prior baseline studies. PLAN: Hydration, panculture, broad-spectrum antibiotics, pain control, insulin coverage by sliding scale, postoperative anti-platelet therapy, review laboratory studies, and further recommendations will follow. Morales Serrano M.D. DR: Evelia JOB#: [id number] CC:
--- NOTE | 2016-10-09 08:48 | Diagnostic Imaging Report ---
Indications: Long-term central IV access required for intravenous therapy Technique: The procedure indications, risks, and alternatives were explained to the patient's family who understands and gives consent to proceed. Strict aseptic technique was utilized, including hand washing, use of hat and mask, use of sterile gown and gloves, sterile ultrasound gel and probe cover, prepping of left arm skin with 2% chlorhexidine solution, and application of full body sterile barrier over this area. Skin and subcutaneous soft tissues were infiltrated with 1% lidocaine and sodium bicarbonate. A small dermatotomy was made, through which the larger of two patent, adequate size left brachial veins was punctured percutaneously under direct sonographic guidance with a 21-gauge needle . Exchange was made over a 0.018 inch guidewire for a 5 Bengali peel-away sheath. A Avocado™ Power-PICC 5 Bengali dual lumen central venous catheter was cut to appropriate length, then advanced through the sheath over the guidewire under direct fluoroscopic guidance into the superior vena cava. Guidewire and sheath were removed. Both catheter ports were aspirated, then flushed with heparinized saline. Final image was obtained. Catheter was secured the skin with adhesive dressing. Patient tolerated procedure well without immediate complications. Total fluoroscopy time: 0.2 minutes. Dose-area product: 8.4 dGy-cm2 Findings: Final image demonstrates tip of the central venous catheter at the level of superior vena cava-right atrial junction, 38 cm in from the skin. Both ports aspirate and flush freely. IMPRESSION: Placement of peripherally inserted central venous catheter via left brachial vein, working well.
== END 2016-10-07 15:11 | DRG 853 ==
LOC: 4E 15:46
PROC: 0X6S0Z2 Detachment at Right Ring Finger, Mid, Open Approach (ICD-10-PCS; principal; 2016-10-05 10:00)
PROC: 0X6Q0Z2 Detachment at Right Middle Finger, Mid, Open Approach (ICD-10-PCS; principal; 2016-10-05 10:00)
PROC: 0X6N0Z2 Detachment at Right Index Finger, Mid, Open Approach (ICD-10-PCS; principal; 2016-10-05 10:00)
PROC: 02HV33Z Insertion of Infusion Device into Superior Vena Cava, Percutaneous Approach (ICD-10-PCS; 2016-10-06)
PROC: B518ZZA Fluoroscopy of Superior Vena Cava, Guidance (ICD-10-PCS; 2016-10-06)
DX: A41.9 Sepsis, unspecified organism (principal); R65.21 Severe sepsis with septic shock; G93.40 Encephalopathy, unspecified; I96 Gangrene, not elsewhere classified; R13.10 Dysphagia, unspecified; L03.113 Cellulitis of right upper limb; Z89.432 Acquired absence of left foot; Z89.431 Acquired absence of right foot; Z87.820 Personal history of traumatic brain injury; Z93.1 Gastrostomy status; E11.9 Type 2 diabetes mellitus without complications; I73.89 Other specified peripheral vascular diseases; N18.9 Chronic kidney disease, unspecified
CPT/HCPCS: 36415; 36569; 71010; 76937; 80053; 80202; 82962; 83036; 84443; 84484; 85025; 85610; 93005; 93306; 94003; 94150; J1815; J2250; S5561

== ENCOUNTER 2016-10-26 13:27 | Inpatient (IN) | payer MEDICARE, MEDICAID ==
[~2016-10-26] VITALS: Ht 182.9 cm; Wt 74.8 kg
[~2016-10-26 13:27] MED LIST changes: +ASPIR 8181 MG GT; +CEPHALEXIN500 MG ORAL; +COLACE100 MG GT; -COLACE100 MG ORAL; +DOXYCYCLINE HY100 M6 GT; +FISH OIL CAP1000 MG; +GEMFIBROZIL600 MG GT; +MULTIVITAMINS1 EAC8 GT; +TYLENOL650 MG/20. GT; -TYLENOL650 MG/20. ORAL
[2016-10-26 16:30] VITALS: BP 94/63
[2016-10-26] MEDS ORDERED: PRO-STAT LIQUID30 ML GT (17:03)
[2016-10-26] MEDS ORDERED: NORCO 5-325 TA1 EAC1 GT (17:03)
[2016-10-26] MEDS ORDERED: Acetaminophen 650mg/20.3ml ORAL PRN (17:15)
[2016-10-26 20:00] VITALS: BP 94/63
[2016-10-26] MEDS ORDERED: Vancomycin 1.5 GM in D5W 325 ML IVPB ONE (20:30)
[2016-10-26] MEDS: Levemir Flexpen SUBQ SCH (21:00)
[2016-10-26] MEDS: Heparin 5000 units/ml inj SUBQ SCH (21:00)
[2016-10-26] MEDS: Metoprolol 50mg tab NG SCH (21:00)
[2016-10-26] MEDS: Docusate 100mg/10ml Liq GT SCH (21:50)
[2016-10-26] MEDS: levETIRAcetam 500mg/5ml Liquid GT SCH (21:50)
[2016-10-26] MEDS: Piperacillin/Tazobactam 3.375 GM in D5W 110 ML IVPB SCH (22:00)
--- NOTE | 2016-10-26 23:30 | History and Physical Report ---
DATE OF ADMISSION: 10/26/2016 CHIEF COMPLAINT: Right hand cellulitis. HISTORY OF PRESENT ILLNESS: The patient is a pleasant and unfortunate 56-year-old male. He has a history of traumatic brain injury, peripheral artery disease, diabetes, has a history of recent amputation of gangrenous fingers on the right hand, he has a history of transmetatarsal amputation from gangrene, who presented from a nursing home facility with complaints of cellulitis and infection of a recent hand surgery. The patient recently underwent amputation of the gangrenous fingers. At the [facility], the patient had been pulling off the dressings and at times biting at his fingers. He was seen by the plastic surgery on the day of admission. There is a concern about a possible ongoing infection. The patient is now admitted for further evaluation and care. PAST MEDICAL HISTORY: As above. PAST SURGICAL HISTORY: As above. CURRENT MEDICATIONS: Reconciled and reviewed. ALLERGIES: None. SOCIAL HISTORY: Negative for tobacco, ethanol, or drugs. FAMILY HISTORY: None. REVIEW OF SYSTEMS: Unobtainable, as the patient is confused. PHYSICAL EXAMINATION: VITAL SIGNS: Temperature 98 degrees, blood pressure 143/76, pulse 80, and respirations 20. GENERAL: The patient is in no distress. He is confused, but awake and does follow some simple commands. HEENT: Pupils are equal, round, and reactive to light. Oropharynx is clear. NECK: Supple. HEART: Regular rate and rhythm. LUNGS: Clear. ABDOMEN: Soft, nontender, and nondistended. There is a G-tube site in place. EXTREMITIES: Without clubbing or cyanosis. There are bilateral transmetatarsal amputations of the feet. On the right hand, there are sutures in the second, third, and fourth digits. There is erythema and swelling of the fingers noted with some purulent discharge. LABORATORY DATA: Pending. ASSESSMENT: This is a pleasant male, admitted with complaints of cellulitis of the right hand cellulitis. 1. Recent amputation of the gangrenous fingers on the right hand. 2. Peripheral artery disease. 3. Hypertension. 4. Diabetes. 5. Traumatic brain injury and encephalopathy. PLAN: 1. Intravenous antibiotics. 2. Plastic consultation. 3. MRI of the hand to rule out osteomyelitis. 4. Followup pending laboratories. 5. Message left for the patient's sister regarding the patient's current status and plan of care. Raul Del Cid M.D. DR: SUKHDEEP JOB#: [id number] CC:
[2016-10-27] VITALS: BP 96/67
--- NOTE | 2016-10-27 01:15 | Consultation ---
DATE OF CONSULTATION: 10/26/2016 CARDIOLOGY CONSULTATION: CONSULTING PHYSICIAN: Morales Serrano M.D. REQUESTING PHYSICIAN: Raul Del Cid M.D. REASON FOR CONSULTATION: Peripheral artery insufficiency. HISTORY OF PRESENT ILLNESS: This 56-year-old male has significant microvascular disease and has had ischemia, gangrene, and amputations of both upper and lower extremities. Most recently, several weeks ago, the gangrenous fingers on his right hand, number 2, 3, and 4 were amputated. He also has history of prior transmetatarsal amputation of his right foot. The patient is now admitted with increasing pain, drainage, and signs of infection with recent amputation sites of his right hand. The patient apparently has been noncompliant with dressing changes and wound care at the facility, where he is convalescing. He comes in now due to pain. PAST MEDICAL HISTORY: Peripheral artery disease, hypertension, insulin-requiring diabetes mellitus, dysphagia with gastrostomy tube, protein-calorie malnutrition, and history of traumatic brain injury with chronic encephalopathy. MEDICATIONS: Prior to admission, reviewed and reconciled. ALLERGIES: None. SOCIAL HISTORY: No current smoking, alcohol, or substance abuse. FAMILY HISTORY: Noncontributory. REVIEW OF SYSTEMS: Cannot be reliably obtained presently as the patient is quite confused and uncooperative. I have reviewed prior hospital records as well as his current [facility] chart and pertinent data has been outlined above. PHYSICAL EXAMINATION: GENERAL: The patient is afebrile. VITAL SIGNS: Blood pressure is 143/76, pulse 80, and respiratory rate 20. It appears that he is confused. He has followed some commands. He may be in pain. HEENT: Normocephalic and atraumatic. Conjunctivae are pink. Oropharynx is clear. Mucous membranes are moist. NECK: Supple. Jugular venous pressure is normal. No bruits. LUNGS: Clear. CARDIAC: Regular rhythm and rate. Normal S1 and S2. No murmur, rub, or gallop. ABDOMEN: Soft and nontender. No guarding or rebound. G-tube is intact. EXTREMITIES: No clubbing or cyanosis. Bilateral transmetatarsal amputations of the feet are noted. The right hand has sutures in second, third, and fourth digits with erythema, swelling, drainage, and purulence noted. LABORATORY DATA: Pending. IMPRESSION: 1. Cellulitis, status post gangrenous amputations of the digits, increased risk for osteomyelitis. 2. Peripheral artery disease, specifically microvascular. 3. Insulin-requiring diabetes mellitus. 4. Hypertensive heart disease. 5. History of traumatic brain injury and chronic encephalopathy. 6. Toxic encephalopathy. PLAN: 1. Follow up laboratory studies. 2. Wound care antibiotics. 3. Pain control. 4. Hydration if clinical parameters warrant. 5. Consider nitrates topically and distally to improve blood flow. 6. Avoid tight blood pressure control at this time. 7. We will follow. Morales Serrano M.D. DR: Naldo JOB#: [id number] CC:
[2016-10-27 04:00] VITALS: BP 97/64
[2016-10-27] MEDS: Piperacillin/Tazobactam 3.375 GM in D5W 110 ML IVPB SCH ×3 (05:59→22:13)
[2016-10-27] MEDS: NovoLOG Insulin Flexpen SUBQ SCH ×4 (06:00→18:00)
[2016-10-27] MEDS: Levemir Flexpen SUBQ SCH ×2 (06:00→18:36)
--- NOTE | 2016-10-27 06:31 | General Progress Note ---
Assessment/Plan Problem List: (1) Chest pain at rest ICD Codes: R07.9 - Chest pain, unspecified SNOMED: 1952036 (2) Cellulitis of hand ICD Codes: L03.119 - Cellulitis of unspecified part of limb SNOMED: 96035741 (3) Post traumatic encephalopathy ICD Codes: F07.81 - Postconcussional syndrome SNOMED: 37569412 (4) Encephalopathy ICD Codes: G93.40 - Encephalopathy, unspecified SNOMED: 85234949, 415259738 Status: stable Assessment/Plan iv abx mri hand follow up cultures pain rx check duplex Subjective ROS Limited/Unobtainable: Yes Constitutional: Reports: malaise, weakness HEENT: Reports: no symptoms Cardiovascular: Reports: no symptoms Respiratory: Reports: no symptoms Gastrointestinal/Abdominal: Reports: difficulty swallowing Genitourinary: Reports: no symptoms Neurologic/Psychiatric: Reports: pre-existing deficit Endocrine: Reports: no symptoms Hematologic/Lymphatic: Reports: no symptoms Allergies: Coded Allergies: No Known Allergies (Unverified , 05/30/16) All Systems: reviewed and negative except above Subjective no events. had single self limited episode of chest pain. right hand fingers still red/indurated. Objective Last 24 Hour Vital Signs Date Time Temp Pulse Resp B/P Pulse Ox O2 Delivery O2 Flow Rate FiO2 10/27/16 04:00 97.7 74 18 97/64 97 Room Air 10/27/16 00:00 97.6 74 18 96/67 Room Air 10/26/16 21:00 74 94/63 10/26/16 20:00 97.9 74 18 94/63 99 Room Air 10/26/16 16:30 97.3 73 20 94/63 100 Room Air Height (Feet): 6 Weight (Pounds): 165 General Appearance: WD/WN, alert, confused Neck: supple Cardiovascular: regular rhythm Respiratory/Chest: lungs clear, normal breath sounds, no respiratory distress Abdomen: normal bowel sounds, non tender, soft, no organomegaly Edema: no edema noted Arm (L), no edema noted Arm (R), no edema noted Leg (L), no edema noted Leg (R), no edema noted Pedal (L), no edema noted Pedal (R), no edema noted 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
[2016-10-27 08:06] VITALS: BP 110/71
[2016-10-27] MEDS ORDERED: LORazepam 1mg tab ORAL ONE (08:15)
[2016-10-27] MEDS: Multivitamins W/Minerals 15 ML UDC GT SCH (08:48)
[2016-10-27] MEDS: Docusate 100mg/10ml Liq GT SCH ×2 (08:48→18:18)
[2016-10-27] MEDS: Aspirin Baby 81mg GT SCH (08:48)
[2016-10-27] MEDS: levETIRAcetam 500mg/5ml Liquid GT SCH ×2 (08:49→22:12)
[2016-10-27] MEDS: Metoprolol 50mg tab NG SCH ×2 (08:51→21:00)
[2016-10-27] MEDS: Lisinopril 20mg tab ORAL SCH (08:51)
[2016-10-27] MEDS: Heparin 5000 units/ml inj SUBQ SCH ×2 (08:53→22:15)
[2016-10-27] MEDS: Dyna-Hex 2% Top Sol 8oz TOPIC SCH (09:00)
[2016-10-27] MEDS ORDERED: Heparin 2000 units/Ns 1000ml INJ ONE (09:00)
[2016-10-27] MEDS ORDERED: Lidocaine 1% Plain 30 ml INJ ONE (09:00)
[2016-10-27] MEDS ORDERED: Sodium Bicarbonate 4% 2.4meq/5ml vial INJ ONE (09:00)
[2016-10-27] MEDS: Vancomycin 1250mg/D5W 275ml IVPB SCH ×4 (10:00→22:30)
[2016-10-27 11:50] VITALS: BP 137/91
--- NOTE | 2016-10-27 15:47 | Wound Care Consultation ---
Wound Assessment Wound Assessment #1: Wound Present on Admission: Yes New Wound: No Status Change of Wound: No Wound Location Body Site Modif: mid Wound Location Body Site: sacral Wound Type: pressure ulcer Trista Test: Does not Trista Pressure Ulcer Stage: III Wound Thickness: Full Thickness Wound Length: 0.8 Wound Width: 0.8 Wound Depth: utd Percent of Wound [place]/Red: 100 Wound Drainage Description: Serosanguineous Wound Drainage Amount: Scant Wound Drainage Odor: None/Absent Tissue Surrounding Wound: Intact Wound General Appearance: Reddened Wound Assessment #2: Wound Number: #2 Wound Present on Admission: Yes New Wound: No Status Change of Wound: No Wound Location Body Site Modif: right Wound Location Body Site: finger - 2nd, 3rd and 4th Wound Type: other - amputation Trista Test: Does not Trista Incisional Wounds: S/P Amputation Wound Thickness: Full Thickness Percent of Wound [place]/Red: 100 Wound Drainage Amount: None Wound Drainage Odor: None/Absent Tissue Surrounding Wound: Erythemic Wound General Appearance: Reddened Wound Assessment #3: Wound Number: #3 Wound Present on Admission: Yes New Wound: No Status Change of Wound: No Wound Location Body Site Modif: left Wound Location Body Site: trochanter Wound Type: scar Trista Test: Does not Trista Wound Thickness: Full Thickness - scar tissue Wound Length: 3.5 Wound Width: 3.5 Wound Depth: utd Percent of Wound [place]/Red: 100 Wound Drainage Amount: None Wound Drainage Odor: None/Absent Tissue Surrounding Wound: Intact Wound General Appearance: Asymptomatic Wound Comment #1 Sacral stage III pressure ulcer #2 Right s/p amputation of gangrenous 2nd, 3rd and 4th fingers #3 Left trochanter full thickness scar tissue Recommendation -Sacral area pressure ulcers Cleanse with saline, pat dry, apply Triad cream, cover with Bordered gauze daily and PRN soiled/dislodged -Right 2nd,3rd and 4th fingers Local wound care as ordered by MD -Offload both heels -Heel protector on both heels -Turn and reposition -Keep clean and dry -Optimize nutrition -Low air loss overlay mattress -Assess and f/u accordingly for any changes BIN NOLAND RN Oct 27, 2016 15:47
--- NOTE | 2016-10-27 15:57 | Diagnostic Imaging Report ---
Indication: Cellulitis right hand. Altered mental status. History of amputation involving portions of the second third and fourth digits. Technique: Pulse sequences obtained include coronal T1 fast spin-echo and STIR, axial T1 fast spin-echo. Study could not be completed. Findings: The study was incomplete as the patient was combative and could not continue despite sedation administered prior to the MRI. All of the sequences are degraded significantly by motion. Amputations of the distal aspects of the second third and fourth rays noted. There is subcutaneous edema present involving mainly the third and fourth digits at the level of the middle phalanges. There is not enough detail provided on this examination to reliably exclude the possibility of acute osteomyelitis. Impression: Study is nondiagnostic with regard to the question of osteomyelitis. Evidence of subcutaneous edema involving the third and fourth digits presumably on the basis of cellulitis. Amputations as discussed above
--- NOTE | 2016-10-27 16:27 | Diagnostic Imaging Report ---
Indication: intermodal customer service venous access Findings: After the indications, procedure, risks, complications, and alternatives of the procedure were explained, written informed consent was obtained. The left upper extremity was prepped with alcohol. All elements of maximal sterile barrier technique were followed including usage of a cap, mask, sterile gown, sterile gloves, hand hygiene and a large sterile sheet. Sonographic evaluation of the upper extremity was performed demonstrating a patent and compressible brachial vein. Access was obtained under real-time ultrasound guidance and digital image was saved and archived. An .018 wire was introduced. Needle exchanged for a 5 Macedonian peel-away sheath. Measurements were obtained. A 5 Macedonian dual-lumen Power PICC line catheter was cut to 40 cm and introduced over the wire. Peel-away sheath and wire were removed.Catheter was secured to the skin using 2-0 Prolene suture. Both ports aspirate and flush easily. Fluoroscopic Images show distal tip in the superior vena cava. Total fluoroscopic time 0.2 minutes. Impression: Successful placement of an upper extremity PICC line catheter
[2016-10-27 16:35] VITALS: BP 92/60
[2016-10-27 17:26] LABS: EOSINOPHILS % (AUTO) 1.1 % (0.0-3.0); LYMPHOCYTES % (AUTO) 20.1 % (20.0-45.0); MEAN CORPUSCULAR HGB CONC 34.1 G/DL (32.0-36.0); MEAN CORPUSCULAR VOLUME 76 FL (80-99); MEAN PLATELET VOLUME 7.9 FL (6.5-10.1); MONOCYTES % (AUTO) 8.7 % (1.0-10.0); NEUTROPHILS % (AUTO) 69.1 % (45.0-75.0); PLATELET COUNT 199 K/UL (150-450); RED BLOOD COUNT 5.32 M/UL (4.70-6.10); RED CELL DISTRIBUTION WIDTH 17.2 % (11.6-14.8); WHITE BLOOD COUNT 5.8 K/UL (4.8-10.8)
[2016-10-27] MEDS ORDERED: Hydromorphone 0.5mg/0.5ml inj IVP ONE (18:15)
[2016-10-27 20:00] VITALS: BP 121/61
--- NOTE | 2016-10-27 20:31 | Consultation ---
DATE OF CONSULTATION: 10/27/2016 INFECTIOUS DISEASES CONSULTATION CONSULTING PHYSICIAN: Lobo Bowles M.D. REASON FOR CONSULTATION: Right finger cellulitis. HISTORY OF PRESENTING ILLNESS: This is a 56-year-old gentleman with history of traumatic brain injury, diabetes, peripheral arterial disease. He underwent recent amputation of the second, third, and fourth fingers for gangrene. He came in because of increasing redness and swelling and the stump site of his fingers. An Infectious diseases consultation has been obtained for antibiotics. Apparently, he has been pulling of the dressings and biting at his finger. PAST MEDICAL HISTORY: 1. History of diabetes. 2. Traumatic brain injury. 3. Peripheral arterial disease. 4. Gangrene of the second, third, and fourth fingers of the hand status post amputation. 5. History of transmetatarsal amputation bilaterally of the feet. MEDICATIONS: As an inpatient, he is on IV vancomycin, Epogen, aspirin, fish oil, lisinopril, multivitamins, Senokot, chlorhexidine gluconate, insulin, Zosyn, docusate, gemfibrozil, Keppra, metoprolol, subcutaneous heparin. ALLERGIES: No known drug allergies. SOCIAL HISTORY: He does not smoke, drink, or use drugs. FAMILY HISTORY: Noncontributory. REVIEW OF SYSTEMS: Unable to obtain currently. PHYSICAL EXAMINATION: VITAL SIGNS: Temperature of 97.9, T-max of 97.9, pulse of 115, respiratory rate of 15, blood pressure 137/91, O2 saturation of 93%. HEENT: Pupils are equally reactive to light and accommodation. Mouth appears clean without thrush. NECK: Supple. No adenopathy. No JVD. CARDIOVASCULAR: Regular rate and rhythm. No murmurs. LUNGS: Clear to auscultation bilaterally. No crackles. No wheezes. ABDOMEN: Soft and nontender. No organomegaly. EXTREMITIES: No cyanosis, no clubbing, no edema. Bilateral stumps on the feet are clean, right, second, third and fourth fingers amputation sites with erythema noted. LABORATORY DATA: No laboratories noted. ASSESSMENT: This is a 56-year-old gentleman with history of diabetes status post transmetatarsal foot amputation who comes in with cellulitis of the stump site of the second, third, and fourth right hand finger after amputation for gangrene his finger. PLAN: 1. Continue IV vancomycin and Zosyn. 2. We will order a CT of the right hand. 3. We will follow up the patient clinically. 4. We would suggest a surgical evaluation. I would like to thank, Dr. Del Cid for this consultation. Lobo Bowles M.D. DR: Avni JOB#: [id number] CC: Raul Del Cid M.D.
[2016-10-27] MEDS: NS Irrig 1000ml 1,000 ML IRRIG SCH (22:12)
[2016-10-27] MEDS: Hydrogen Peroxide 473ml Bottle TOPIC SCH (22:13)
[2016-10-27] MEDS: Betadine 4oz Bottle TOPIC SCH (22:17)
[2016-10-28] VITALS: BP 108/76
--- NOTE | 2016-10-28 | Progress Note ---
DATE: 10/27/2016 CARDIOLOGY PROGRESS NOTE SUBJECTIVE: The patient remains confused. He has frequent episodes of pain. He has been started on IV antibiotics. OBJECTIVE: Blood pressure ranging from 92/60 to 137/91, heart rate 84 to 115, and respiratory rate 14 to 15. He is afebrile. Oxygen saturation on room air 93% to 98%. HEENT: Oropharynx is clear. NECK: Supple. LUNGS: Clear. CARDIAC: Regular rhythm. Rapid rate. Normal S1 and S2. ABDOMEN: Soft. EXTREMITIES: No edema. Right hand has dressing in place. Other amputation sites of the feet are dry. LABORATORY DATA: White count 5.8 and hemoglobin 13.8. MRI of the hand reveals edema on the digits that is nondiagnostic with regard to osteomyelitis due to motion artifact. PICC line is in place with no signs of erythema. IMPRESSION: 1. Cellulitis status post amputations of the right second through fourth digits possible osteomyelitis. 2. Severe microvascular disease. 3. Peripheral artery disease. 4. Diabetes mellitus insulin-requiring. 5. Head trauma with encephalopathy and seizure disorder. 6. Hypertensive heart disease. 7. Secondary sinus tachycardia. PLAN: 1. Hold parameters for antihypertensives. 2. Continue anti-platelet. 3. Check lipid panel. 4. Antimicrobials. 5. Insulin titration. 6. Pain control. Morales Serrano M.D. DR: IGNACIO JOB#: [id number] CC:
[2016-10-28] MEDS: NovoLOG Insulin Flexpen SUBQ SCH ×5 (00:25→23:42)
[2016-10-28] MEDS: Dyna-Hex 2% Top Sol 8oz TOPIC SCH (02:13)
--- NOTE | 2016-10-28 02:30 | Consultation ---
DATE OF CONSULTATION: 10/27/2016 PLASTIC SURGERY CONSULTATION NOTE: HISTORY OF PRESENT ILLNESS: The patient is a 56-year-old male who had recently undergone multiple distal finger tip amputations due to gangrene. The patient has a known history of peripheral vascular disease and diabetes. He presented with signs and symptoms of cellulitis. Plastic surgery consultation is requested. PAST MEDICAL HISTORY: Diabetes, hypertension, and traumatic brain injury. MEDICATIONS: Reviewed in the medical record. ALLERGIES: Reviewed in the medical record. SOCIAL HISTORY: Reviewed in the medical record. PHYSICAL EXAMINATION: GENERAL: The patient is weak and poorly communicative. HEENT: Anicteric sclerae. HEART: Regular rate and rhythm. EXTREMITIES: Hand is notable for an appropriately healing wound of the index, middle, and ring finger tips. There is crusting of the incisions. Sutures are in place. There is erythema of the distal fingers. There is a small amount of purulent material coming from the index finger. The sutures of that finger were removed. There was appropriate range of motion. The finger tips were very sensitive. ASSESSMENT AND PLAN: The patient had cellulitis of the finger tips. I recommend intravenous antibiotics per Infectious Diseases. Culture of the wound. I recommend 3 times daily bathing of the finger tips in a solution of Betadine, hydrogen peroxide, and saline. I recommend hand elevation. Please contact me with further questions. Jon Baird M.D. DR: RAQUEL JOB#: [id number] CC:
[2016-10-28 04:00] VITALS: BP 125/67
[2016-10-28] MEDS: Piperacillin/Tazobactam 3.375 GM in D5W 110 ML IVPB SCH ×3 (05:21→23:13)
[2016-10-28] MEDS: Levemir Flexpen SUBQ SCH ×2 (06:00→18:00)
[2016-10-28 08:07] VITALS: BP 116/66
--- NOTE | 2016-10-28 08:30 | General Progress Note ---
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 SNOMED: 00305737 (4) Encephalopathy ICD Codes: G93.40 - Encephalopathy, unspecified SNOMED: 27995293, 507014083 Assessment/Plan iv abx mri hand follow up cultures pain rx check duplex Subjective ROS Limited/Unobtainable: Yes Constitutional: Reports: malaise, weakness HEENT: Reports: no symptoms Cardiovascular: Reports: no symptoms Respiratory: Reports: no symptoms Gastrointestinal/Abdominal: Reports: difficulty swallowing Genitourinary: Reports: no symptoms Neurologic/Psychiatric: Reports: pre-existing deficit Endocrine: Reports: no symptoms Hematologic/Lymphatic: Reports: no symptoms Allergies: Coded Allergies: No Known Allergies (Unverified , 05/30/16) All Systems: reviewed and negative except above Subjective no events. no more chest pain right hand fingers still red/indurated MRI negative for osteo. Objective Last 24 Hour Vital Signs Date Time Temp Pulse Resp B/P Pulse Ox O2 Delivery O2 Flow Rate FiO2 10/28/16 08:07 97.9 95 20 116/66 98 Room Air 10/28/16 04:00 96.4 83 20 125/67 98 Room Air 10/28/16 00:00 97.0 91 20 108/76 98 Room Air 10/27/16 21:00 87 96/66 10/27/16 20:00 96.3 107 20 121/61 98 Room Air 10/27/16 18:50 97.2 10/27/16 16:35 97.2 84 14 92/60 98 Room Air 10/27/16 11:50 97.9 115 15 137/91 93 Room Air 10/27/16 08:51 89 110/71 10/27/16 08:51 110/71 Intake and Output 10/27/16 10/28/16 19:00 07:00 Intake Total 0 ml Balance 0 ml Intake Oral 0 ml # Voids 2 2 Laboratory Tests 10/27/16 17:10: White Blood Count 5.8, Red Blood Count 5.32, Hemoglobin 13.8L, Hematocrit 40.5L , Mean Corpuscular Volume 76L, Mean Corpuscular Hemoglobin 26.0L, Mean Corpuscular Hemoglobin Concent 34.1, Red Cell Distribution Width 17.2H, Platelet Count 199, Mean Platelet Volume 7.9, Neutrophils (%) (Auto) 69.1, Lymphocytes (%) (Auto) 20.1, Monocytes (%) (Auto) 8.7, Eosinophils (%) (Auto) 1.1, Basophils (%) (Auto) 1.0 Height (Feet): 6 Weight (Pounds): 165 General Appearance: WD/WN, alert, confused Neck: supple Cardiovascular: regular rhythm Respiratory/Chest: lungs clear, normal breath sounds, no respiratory distress, no accessory muscle use Abdomen: normal bowel sounds, non tender, soft, no organomegaly, no mass Extremities: other - right hand 2 3 4 finger red swollen and induated Edema: no edema noted Arm (L), no edema noted Arm (R), no edema noted Leg (L), no edema noted Leg (R), no edema noted Pedal (L), no edema noted Pedal (R), no edema noted Generalized Neurologic: alert, responsive, disoriented DARYN JEREZ Oct 28, 2016 08:30
[2016-10-28] MEDS: Lisinopril 20mg tab ORAL SCH (09:36)
[2016-10-28] MEDS: Aspirin Baby 81mg GT SCH (09:36)
[2016-10-28] MEDS: Multivitamins W/Minerals 15 ML UDC GT SCH (09:37)
[2016-10-28] MEDS: Docusate 100mg/10ml Liq GT SCH ×2 (09:37→18:02)
[2016-10-28] MEDS: Metoprolol 50mg tab NG SCH ×2 (09:37→21:00)
[2016-10-28] MEDS: levETIRAcetam 500mg/5ml Liquid GT SCH ×2 (09:42→21:40)
[2016-10-28] MEDS: Heparin 5000 units/ml inj SUBQ SCH ×2 (09:43→21:00)
[2016-10-28] MEDS: Hydrogen Peroxide 473ml Bottle TOPIC SCH ×3 (09:44→18:03)
[2016-10-28] MEDS: Betadine 4oz Bottle TOPIC SCH ×3 (09:45→18:02)
[2016-10-28] MEDS: NS Irrig 1000ml 1,000 ML IRRIG SCH ×3 (09:45→18:03)
[2016-10-28 09:58] LABS: BASOPHILS % (AUTO) 0.7 % (0.0-2.0); EOSINOPHILS % (AUTO) 2.9 % (0.0-3.0); LYMPHOCYTES % (AUTO) 24.5 % (20.0-45.0); MEAN CORPUSCULAR HEMOGLOBIN 23.6 PG (27.0-31.0); MEAN CORPUSCULAR HGB CONC 31.2 G/DL (32.0-36.0); MEAN CORPUSCULAR VOLUME 76 FL (80-99); MEAN PLATELET VOLUME 8.2 FL (6.5-10.1); MONOCYTES % (AUTO) 9.3 % (1.0-10.0); NEUTROPHILS % (AUTO) 62.5 % (45.0-75.0); PLATELET COUNT 223 K/UL (150-450); RED BLOOD COUNT 5.68 M/UL (4.70-6.10); RED CELL DISTRIBUTION WIDTH 17.3 % (11.6-14.8); WHITE BLOOD COUNT 3.9 K/UL (4.8-10.8)
[2016-10-28 10:27] LABS: ANION GAP 16 (5-15); BILIRUBIN,DIRECT 0.1 mg/dL (0.1-0.3); CALCIUM 10.5 mg/dL (8.6-10.2); CARBON DIOXIDE 27 mEQ/L (20-30); CHLORIDE 94 mEQ/L (98-107); CHOLESTEROL/HDL RATIO 6.1 (3.3-4.4); GLOMERULAR FILTRATION RATE > 60 mL/min (>60); HEMOLYSIS 13; MAGNESIUM 2.1 mg/dL (1.7-2.5); POTASSIUM 4.4 mEQ/L (3.4-4.9); SODIUM 137 mEQ/L (135-145); TOTAL PROTEIN 8.2 g/dL (6.6-8.7)
[2016-10-28] MEDS ORDERED: D5 1/2NS 1000ml IV ONE (10:47)
[2016-10-28] MEDS ORDERED: NS 275ml ONE (10:47)
[2016-10-28] MEDS ORDERED: NS Irrig 1000ml ONE (10:47)
[2016-10-28] MEDS ORDERED: Tubing IV Secondary IV ONE (10:47)
--- NOTE | 2016-10-28 10:48 | Infectious Diseases Prog Note ---
Assessment/Plan Assessment/Plan antibiotics : vancomycin iv, zosyn A 1. right 2nd, 3rd, 4th fingers stump cellulitis 2. PVD 3. DM 4. s/p bilateral TMA P 1. continue vancomycin iv, zosyn 2. will follow up cultures Subjective ROS Limited/Unobtainable: Yes Allergies: Coded Allergies: No Known Allergies (Unverified , 05/30/16) Objective Vital Signs Last 24 Hour Vital Signs Date Time Temp Pulse Resp B/P Pulse Ox O2 Delivery O2 Flow Rate FiO2 10/28/16 09:37 95 116/66 10/28/16 09:36 116/66 10/28/16 08:07 97.9 95 20 116/66 98 Room Air 10/28/16 04:00 96.4 83 20 125/67 98 Room Air 10/28/16 00:00 97.0 91 20 108/76 98 Room Air 10/27/16 21:00 87 96/66 10/27/16 20:00 96.3 107 20 121/61 98 Room Air 10/27/16 18:50 97.2 10/27/16 16:35 97.2 84 14 92/60 98 Room Air 10/27/16 11:50 97.9 115 15 137/91 93 Room Air Height (Feet): 6 Weight (Pounds): 165 Respiratory/Chest: lungs clear Cardiovascular: normal rate, regular rhythm, no gallop/murmur Abdomen: soft, non tender Extremities: no edema, other - right 2nd, 3rd, 4th fingers erythema decreased, feet stumps clean Microbiology Date/Time Source Procedure Growth Status 10/26/16 18:15 Nasal Nares MRSA Culture - Final Staphylococcus Aureus - Mrsa Complete 10/26/16 18:15 Rectum VRE Culture - Final Enterococcus Faecalis - Vre Complete Laboratory Tests Test 10/27/16 17:10 10/28/16 08:00 10/28/16 09:00 White Blood Count 5.8 K/UL (4.8-10.8) 3.9 K/UL (4.8-10.8) L Red Blood Count 5.32 M/UL (4.70-6.10) 5.68 M/UL (4.70-6.10) Hemoglobin 13.8 G/DL (14.2-18.0) L 13.4 G/DL (14.2-18.0) L Hematocrit 40.5 % (42.0-52.0) L 43.0 % (42.0-52.0) Mean Corpuscular Volume 76 FL (80-99) L 76 FL (80-99) L Mean Corpuscular Hemoglobin 26.0 PG (27.0-31.0) L 23.6 PG (27.0-31.0) L Mean Corpuscular Hemoglobin Concent 34.1 G/DL (32.0-36.0) 31.2 G/DL (32.0-36.0) L Red Cell Distribution Width 17.2 % (11.6-14.8) H 17.3 % (11.6-14.8) H Platelet Count 199 K/UL (150-450) 223 K/UL (150-450) Mean Platelet Volume 7.9 FL (6.5-10.1) 8.2 FL (6.5-10.1) Neutrophils (%) (Auto) 69.1 % (45.0-75.0) 62.5 % (45.0-75.0) Lymphocytes (%) (Auto) 20.1 % (20.0-45.0) 24.5 % (20.0-45.0) Monocytes (%) (Auto) 8.7 % (1.0-10.0) 9.3 % (1.0-10.0) Eosinophils (%) (Auto) 1.1 % (0.0-3.0) 2.9 % (0.0-3.0) Basophils (%) (Auto) 1.0 % (0.0-2.0) 0.7 % (0.0-2.0) Vancomycin Level Trough 9.0 ug/mL (5.0-12.0) Sodium Level 137 mEQ/L (135-145) Potassium Level 4.4 mEQ/L (3.4-4.9) Chloride Level 94 mEQ/L (98-107) L Carbon Dioxide Level 27 mEQ/L (20-30) Anion Gap 16 (5-15) H Blood Urea Nitrogen 26 mg/dL (7-23) H Creatinine 1.0 mg/dL (0.7-1.2) Estimat Glomerular Filtration Rate > 60 mL/min (>60) Glucose Level 111 mg/dL (74-106) H Calcium Level 10.5 mg/dL (8.6-10.2) H Magnesium Level 2.1 mg/dL (1.7-2.5) Total Bilirubin 0.4 mg/dL (0.0-1.2) Direct Bilirubin 0.1 mg/dL (0.1-0.3) Aspartate Amino Transf (AST/SGOT) 13 U/L (5-40) Alanine Aminotransferase (ALT/SGPT) 11 U/L (3-41) Alkaline Phosphatase 83 U/L (40-129) Total Protein 8.2 g/dL (6.6-8.7) Albumin 4.3 g/dL (3.5-5.2) Triglycerides Level 361 mg/dL (< 150) H Cholesterol Level 323 mg/dL (< 200) H LDL Cholesterol 198 mg/dL (60-99) H HDL Cholesterol 53 mg/dL (> 60) Cholesterol/HDL Ratio 6.1 (3.3-4.4) H COLTON GONZALEZ Oct 28, 2016 10:48
[2016-10-28] MEDS: Vancomycin 1250mg/D5W 275ml IVPB SCH ×4 (11:09→23:14)
[2016-10-28 12:18] VITALS: BP 119/67
[2016-10-28 15:45] VITALS: BP 121/65
[2016-10-28] MEDS ORDERED: NS Irrig 1000ml 1,000 ML IRRIG SCH (19:52)
[2016-10-28 20:17] VITALS: BP 105/68
[2016-10-28] MEDS: LORazepam Inj 2mg/ml 1ml IV PRN (21:01)
[2016-10-29] VITALS: BP 107/75
[2016-10-29 04:00] VITALS: BP 118/74
[2016-10-29] MEDS: Piperacillin/Tazobactam 3.375 GM in D5W 110 ML IVPB SCH ×3 (05:14→21:17)
[2016-10-29] MEDS: NovoLOG Insulin Flexpen SUBQ SCH ×4 (06:00→23:58)
[2016-10-29] MEDS: Levemir Flexpen SUBQ SCH ×2 (06:21→18:00)
[2016-10-29 08:00] VITALS: BP 105/63
--- NOTE | 2016-10-29 08:28 | Diagnostic Imaging Report ---
Indication: Osteomyelitis Technique: Continuous helical transaxial imaging of the right hand was obtained. No IV contrast given. Coronal 2-D reformats were also obtained. Study obtained in a Siemens sensation [address] Total Dose length Product (DLP): [address] Dose Index Volume (CTDIvol): 0.15, 0.15, 11.52 mGy Comparison: None Findings: We note that the MRI exam was nondiagnostic because of motion. Patient has had amputations of the distal phalanges of the third and fourth rays. There is irregularity of the soft tissues at the amputation stumps which may be indicative of cellulitis. Very faint calcifications are noted at the site of stumps. Mild erosions are also present on the cortical surfaces. More pronounced calcifications, fragmented bone and erosive changes noted at the amputation of of the second ray which is at the level of the distal phalangeal base. Please correlate clinically. There is no evidence of abscess. There is no soft tissue gas identified. Impression: Amputations of portions of the second third and fourth digits as described above. Some calcification and irregularity involving the cortical surface as well as the soft tissues noted. There are likely some erosions of the cortical surface all 3 digits which may be chronic. No evidence of gas gangrene or abscess. Unfortunately, MRI was nondiagnostic because of motion. In general MR is far superior examination in terms of sensitivity and specificity of osteomyelitis. Consider repeating the MRI with adequate sedation. The CT scanner at [facility] is accredited by the [employer] and the scans are performed using dose optimization techniques as appropriate to a performed exam including Automatic Exposure control.
[2016-10-29] MEDS: Lisinopril 20mg tab ORAL SCH (09:00)
[2016-10-29] MEDS: Metoprolol 50mg tab NG SCH ×2 (09:00→21:00)
[2016-10-29] MEDS: Multivitamins W/Minerals 15 ML UDC GT SCH (09:41)
[2016-10-29] MEDS: Aspirin Baby 81mg GT SCH (09:41)
[2016-10-29] MEDS: Docusate 100mg/10ml Liq GT SCH ×2 (09:41→18:12)
[2016-10-29] MEDS: levETIRAcetam 500mg/5ml Liquid GT SCH ×2 (09:42→21:17)
[2016-10-29] MEDS: Hydrogen Peroxide 473ml Bottle TOPIC SCH ×3 (10:04→18:12)
[2016-10-29] MEDS: Betadine 4oz Bottle TOPIC SCH ×3 (10:04→18:12)
[2016-10-29] MEDS: Dyna-Hex 2% Top Sol 8oz TOPIC SCH (10:05)
[2016-10-29] MEDS: Heparin 5000 units/ml inj SUBQ SCH ×2 (10:07→21:18)
[2016-10-29] MEDS: NS Irrig 1000ml 1,000 ML IRRIG SCH ×3 (10:25→18:12)
--- NOTE | 2016-10-29 11:00 | Progress Note ---
DATE: 10/28/2016 CARDIOLOGY PROGRESS NOTE SUBJECTIVE: The patient has been agitated, screaming out, confused and disoriented. He has not had chest pain. His right hand fingers are still red and indurated. OBJECTIVE: VITAL SIGNS: Blood pressure 116/66, pulse 95, respirations 20, and he is afebrile. LUNGS: Bilateral breath sounds. No wheezing or rales. HEART: Regular rhythm and rate. Normal S1 and S2 with a fourth heart sound. ABDOMEN: Soft. G-tube intact. EXTREMITIES: With no edema. Old amputation sites are red, indurated and draining. LABORATORY STUDIES: White count 3.9 and hemoglobin 13. Triglycerides 361, LDL 198, and total cholesterol 323. BUN 26, creatinine 1.0 and potassium 4.4. IMPRESSION: 1. Cellulitis, right hand, status post amputations. 2. Severe microvascular disease. 3. Posttraumatic head injury. 4. Dementia with agitation and confusion. 5. Severe dyslipidemia. 6. Hypertensive heart disease. PLAN: 1. Pain control. 2. Antimicrobials. 3. Wound care. 4. Advanced gemfibrozil dosing. 5. Maintain anti-platelet therapy. 6. Anxiolytics. Morales Serrano M.D. DR: Will JOB#: [id number] CC:
--- NOTE | 2016-10-29 11:31 | General Progress Note ---
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 SNOMED: 70316005 (4) Encephalopathy ICD Codes: G93.40 - Encephalopathy, unspecified SNOMED: 16583630, 632306343 Status: stable, progressing Assessment/Plan iv abx local wound care per plastics follow up cultures pain rx check duplex cont gt feeds Subjective ROS Limited/Unobtainable: Yes Constitutional: Reports: malaise, weakness HEENT: Reports: no symptoms Cardiovascular: Reports: no symptoms Respiratory: Reports: no symptoms Gastrointestinal/Abdominal: Reports: difficulty swallowing Genitourinary: Reports: no symptoms Neurologic/Psychiatric: Reports: pre-existing deficit Endocrine: Reports: no symptoms Hematologic/Lymphatic: Reports: no symptoms Allergies: Coded Allergies: No Known Allergies (Unverified , 05/30/16) All Systems: reviewed and negative except above Subjective no events. confused. tolerating feeds decrease edema and swelling of finger except middle finger- still red swollen Objective Last 24 Hour Vital Signs Date Time Temp Pulse Resp B/P Pulse Ox O2 Delivery O2 Flow Rate FiO2 10/29/16 09:00 100 105/63 10/29/16 09:00 105/63 10/29/16 08:00 97.5 100 20 105/63 98 Room Air 10/29/16 04:00 96.4 79 19 118/74 89 Room Air 10/29/16 00:00 96.8 90 19 107/75 100 Room Air 10/28/16 21:00 82 105/68 10/28/16 20:17 97.1 82 19 105/68 94 Room Air 10/28/16 15:45 97.1 97 20 121/65 99 Room Air 10/28/16 12:18 97.1 91 21 119/67 99 Room Air Intake and Output 10/28/16 10/29/16 19:00 07:00 Intake Total 480 ml 450 ml Balance 480 ml 450 ml Free Water 120 ml 120 ml Tube Feeding 360 ml 330 ml # Voids 2 2 # Bowel Movements 1 1 Laboratory Tests 10/29/16 10:40: Vancomycin Level Trough 19.6H Height (Feet): 6 Weight (Pounds): 165 Objective General Appearance: WD/WN, alert, confused Neck: supple Cardiovascular: regular rhythm Respiratory/Chest: lungs clear, normal breath sounds, no respiratory distress, no accessory muscle use Abdomen: normal bowel sounds, non tender, soft, no organomegaly, no mass Extremities: other - right hand 2 3 4 finger red swollen and induated Edema: no edema noted Arm (L), no edema noted Arm (R), no edema noted Leg (L), no edema noted Leg (R), no edema noted Pedal (L), no edema noted Pedal (R), no edema noted Generalized Neurologic: alert, responsive, disoriented DARYN JEREZ Oct 29, 2016 11:31
[2016-10-29 12:00] VITALS: BP 103/71
--- NOTE | 2016-10-29 12:01 | Infectious Diseases Prog Note ---
Assessment/Plan Assessment/Plan A 1. right 2nd, 3rd, 4th fingers stump cellulitis 2. PVD 3. DM 4. 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 continue vancomycin iv, Zosyn 2. will follow up cultures Subjective ROS Limited/Unobtainable: Yes Neurologic: Reports: confusion Musculoskeletal: Reports: no symptoms Allergies: Coded Allergies: No Known Allergies (Unverified , 05/30/16) Objective Vital Signs Last 24 Hour Vital Signs Date Time Temp Pulse Resp B/P Pulse Ox O2 Delivery O2 Flow Rate FiO2 10/29/16 09:00 100 105/63 10/29/16 09:00 105/63 10/29/16 08:00 97.5 100 20 105/63 98 Room Air 10/29/16 04:00 96.4 79 19 118/74 89 Room Air 10/29/16 00:00 96.8 90 19 107/75 100 Room Air 10/28/16 21:00 82 105/68 10/28/16 20:17 97.1 82 19 105/68 94 Room Air 10/28/16 15:45 97.1 97 20 121/65 99 Room Air 10/28/16 12:18 97.1 91 21 119/67 99 Room Air Height (Feet): 6 Weight (Pounds): 165 General Appearance: no acute distress HEENT: mucous membranes moist Respiratory/Chest: lungs clear Cardiovascular: normal rate Abdomen: soft, non tender, other - GT feeding Extremities: other - left arm PICC, edema of 2nd to 4th fingers, tips off fingers are amputated, Neurologic/Psychiatric: alert, responsive, disoriented Microbiology Date/Time Source Procedure Growth Status 10/26/16 18:15 Nasal Nares MRSA Culture - Final Staphylococcus Aureus - Mrsa Complete 10/26/16 18:15 Rectum VRE Culture - Final Enterococcus Faecalis - Vre Complete Laboratory Tests Test 10/29/16 10:40 Vancomycin Level Trough 19.6 ug/mL (5.0-12.0) H Current Medications Medications (Trade) Dose Ordered Sig/Mateo Route PRN Reason Start Time Stop Time Status Last Admin Dose Admin Acetaminophen (Tylenol) 650 mg Q4HR PRN ORAL Prn Headache/Temp > 101 10/26/16 17:15 11/25/16 17:14 Aspirin (ASA) 81 mg DAILY GT 10/27/16 09:00 11/26/16 08:59 10/29/16 09:41 Chlorhexidine Gluconate (Chelsey-Hex 2%) 1 applic DAILY TOPIC 10/27/16 09:00 11/26/16 08:59 10/29/16 10:05 Dextrose (Dextrose 50%) STAT PRN IV Hypoglycemia 10/26/16 17:30 11/25/16 17:29 Docusate Sodium (Colace) 100 mg TWICE A DAY GT 10/26/16 21:00 11/25/16 20:59 10/29/16 09:41 Epoetin Zia (Procrit (for non ESRD use)) 10,000 units SUN-SUN-SUN SUBQ 10/30/16 21:00 11/29/16 20:59 Fish Oil (Fish Oil) 1,000 mg DAILY ORAL 10/27/16 09:00 11/26/16 08:59 10/29/16 10:03 Gemfibrozil 600 mg 600 mg BID GT 10/29/16 09:00 11/28/16 08:59 10/29/16 09:42 Heparin Sodium (Porcine) (Heparin 5000 units/ml) 5,000 units EVERY 12 HOURS SUBQ 10/26/16 21:00 11/25/16 20:59 10/29/16 10:07 Hydrogen Peroxide (Hydrogen Peroxide) 1 applic THREE TIMES A DAY TOPIC 10/27/16 21:00 11/26/16 20:59 10/29/16 10:04 Insulin Aspart (NovoLOG) Q6HR SUBQ 10/27/16 00:00 11/26/16 00:00 10/28/16 12:19 Insulin Detemir (Levemir) 5 units Q12HR@0600,1800 SUBQ 10/26/16 21:00 11/25/16 20:59 10/29/16 06:21 Levetiracetam (Keppra) 500 mg EVERY 12 HOURS GT 10/26/16 21:00 11/25/16 20:59 10/29/16 09:42 Lisinopril (Prinivil) 20 mg DAILY ORAL 10/27/16 09:00 11/26/16 08:59 10/28/16 09:36 Lorazepam (Ativan 2mg/ml 1ml) 1 mg Q4H PRN IV For Anxiety 10/28/16 20:45 11/04/16 20:44 10/28/16 21:01 Metoprolol Tartrate (Lopressor) 50 mg EVERY 12 HOURS NG 10/26/16 21:00 11/25/16 20:59 10/28/16 09:37 Multivitamins (Multivitamins W/ Minerals 15ml Liquid) 15 ml DAILY GT 10/27/16 09:00 11/26/16 08:59 10/29/16 09:41 Piperacillin Sod/ Tazobactam Sod/ Dextrose (Zosyn/D5W) 110 ml @ 27.5 mls/hr EVERY 8 HOURS IVPB 10/26/16 22:00 10/31/16 21:59 10/29/16 05:14 Povidone Iodine (Betadine Ramila) 1 applic THREE TIMES A DAY TOPIC 10/27/16 21:00 11/26/16 20:59 10/29/16 10:04 Sennosides (Senokot) 8.6 mg DAILY GT 10/27/16 09:00 11/26/16 08:59 10/29/16 09:41 Sodium Chloride 1,000 ml @ 0 mls/hr THREE TIMES A DAY IRRIG 10/29/16 10:00 11/28/16 09:59 10/29/16 10:25 Vancomycin HCl 1 ea 1 ea DAILY PRN MISC Per rx protocol 10/26/16 17:15 11/25/16 17:14 Vancomycin HCl/ Dextrose (Vancomycin/D5W) 275 ml @ 183.708 mls/hr Q12HR@0000,1200 IVPB 10/29/16 12:00 11/03/16 11:59 DE REILLY Oct 29, 2016 12:01
[2016-10-29] MEDS: Vancomycin 1gm/D5W 275ml IVPB SCH ×2 (12:29)
[2016-10-29] MEDS: LORazepam Inj 2mg/ml 1ml IV PRN ×2 (15:03→22:20)
[2016-10-29 16:00] VITALS: BP 100/68
[2016-10-29 20:00] VITALS: BP 105/66
[2016-10-30] VITALS (7 sets, daily range): BP systolic 104–131; BP diastolic 57–76
--- NOTE | 2016-10-30 | Progress Note ---
DATE: 10/29/2016 CARDIOLOGY PROGRESS NOTE SUBJECTIVE: The patient has less swelling and appears to be more comfortable. OBJECTIVE: VITAL SIGNS: Blood pressure of 105/63, pulse 79 to 100, respirations 19 to 20, and afebrile. NECK: Supple. LUNGS: Clear. CARDIAC: Regular. Normal S1, S2 with a fourth heart sound. ABDOMEN: Soft. Trace edema. EXTREMITIES: Right hand, second, third, and fourth amputation sites with less swelling and redness of the third digit is persistently erythematous however. Lower extremity amputation sites are dry and healed. IMPRESSION: 1. Severe hyperlipidemia and hypertriglyceridemia. 2. Cellulitis of amputated digits. 3. Severe peripheral artery disease, microvascular disease. 4. Insulin-requiring diabetes mellitus. 5. Traumatic and cerebrovascular encephalopathy. PLAN: 1. Antibiotics. 2. Local wound care. 3. Anti-lipid therapy was advanced yesterday. 4. Continue current antihypertensives. 5. Insulin titration per sliding scale. 6. Pain control. Morales Serrano M.D. DR: PAYAM JOB#: [id number] CC:
[2016-10-30] MEDS ORDERED: Vancomycin 1gm inj IVPB ONE (00:11)
[2016-10-30] MEDS: Vancomycin 1gm/D5W 275ml IVPB SCH ×6 (00:23→23:59)
[2016-10-30] MEDS: Piperacillin/Tazobactam 3.375 GM in D5W 110 ML IVPB SCH ×3 (05:03→21:04)
[2016-10-30] MEDS: Levemir Flexpen SUBQ SCH ×2 (05:54→18:00)
[2016-10-30] MEDS: NovoLOG Insulin Flexpen SUBQ SCH ×3 (05:54→18:00)
--- NOTE | 2016-10-30 07:30 | General Progress Note ---
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 SNOMED: 59019730 (4) Encephalopathy ICD Codes: G93.40 - Encephalopathy, unspecified SNOMED: 63826389, 912158826 Status: stable, progressing Assessment/Plan iv abx local wound care per plastics follow up cultures pain rx not ready for dc Subjective ROS Limited/Unobtainable: Yes Constitutional: Reports: malaise, weakness HEENT: Reports: no symptoms Cardiovascular: Reports: no symptoms Respiratory: Reports: no symptoms Gastrointestinal/Abdominal: Reports: difficulty swallowing Genitourinary: Reports: no symptoms Neurologic/Psychiatric: Reports: pre-existing deficit Endocrine: Reports: no symptoms Hematologic/Lymphatic: Reports: anemia Allergies: Coded Allergies: No Known Allergies (Unverified , 05/30/16) All Systems: reviewed and negative except above Subjective no events. confused. tolerating feeds 2 3 4 finger right hand red and swollen. no significant change Objective Last 24 Hour Vital Signs Date Time Temp Pulse Resp B/P Pulse Ox O2 Delivery O2 Flow Rate FiO2 10/30/16 04:00 97.6 96 20 107/75 98 Room Air 10/30/16 00:00 96.6 92 18 105/66 96 Room Air 10/29/16 21:00 87 99/71 10/29/16 20:00 96.6 92 18 105/66 96 Room Air 10/29/16 16:00 97.2 85 20 100/68 97 Room Air 10/29/16 12:00 97.3 86 20 103/71 98 Room Air 10/29/16 09:00 100 105/63 10/29/16 09:00 105/63 10/29/16 08:00 97.5 100 20 105/63 98 Room Air Intake and Output 10/29/16 10/30/16 19:00 07:00 Intake Total 835.000 ml 412.500 ml Balance 835.000 ml 412.500 ml Free Water 120 ml IV Total 385.000 ml 412.500 ml Tube Feeding 330 ml # Voids 4 8 # Bowel Movements 1 Laboratory Tests 10/29/16 10:40: Vancomycin Level Trough 19.6H Height (Feet): 6 Weight (Pounds): 165 Objective General Appearance: WD/WN, alert, confused Neck: supple Cardiovascular: regular rhythm Respiratory/Chest: lungs clear, normal breath sounds, no respiratory distress, no accessory muscle use Abdomen: normal bowel sounds, non tender, soft, no organomegaly, no mass Extremities: other - right hand 2 3 4 finger red swollen and induated Edema: no edema noted Arm (L), no edema noted Arm (R), no edema noted Leg (L), no edema noted Leg (R), no edema noted Pedal (L), no edema noted Pedal (R), no edema noted Generalized Neurologic: alert, responsive, disoriented DARYN JEREZ Oct 30, 2016 07:30
[2016-10-30] MEDS: Docusate 100mg/10ml Liq GT SCH ×2 (08:16→18:30)
[2016-10-30] MEDS: LORazepam Inj 2mg/ml 1ml IV PRN ×3 (08:17→23:59)
[2016-10-30] MEDS: Heparin 5000 units/ml inj SUBQ SCH ×2 (08:19→21:03)
[2016-10-30] MEDS: levETIRAcetam 500mg/5ml Liquid GT SCH ×2 (08:20→21:00)
[2016-10-30] MEDS: Metoprolol 50mg tab NG SCH ×2 (08:21→21:01)
[2016-10-30] MEDS: Aspirin Baby 81mg GT SCH (08:21)
[2016-10-30] MEDS: Multivitamins W/Minerals 15 ML UDC GT SCH (08:21)
[2016-10-30] MEDS: Hydrogen Peroxide 473ml Bottle TOPIC SCH ×3 (08:22→18:33)
[2016-10-30] MEDS: Betadine 4oz Bottle TOPIC SCH ×3 (08:23→18:36)
[2016-10-30] MEDS: NS Irrig 1000ml 1,000 ML IRRIG SCH ×3 (08:24→18:37)
[2016-10-30] MEDS: Dyna-Hex 2% Top Sol 8oz TOPIC SCH (08:32)
[2016-10-30] MEDS: Lisinopril 20mg tab ORAL SCH (09:00)
[2016-10-30 09:37] LABS: MEAN CORPUSCULAR HEMOGLOBIN 24.2 PG (27.0-31.0); MEAN CORPUSCULAR VOLUME 76 FL (80-99); MEAN PLATELET VOLUME 8.8 FL (6.5-10.1); PLATELET COUNT 200 K/UL (150-450); RED CELL DISTRIBUTION WIDTH 17.4 % (11.6-14.8); WHITE BLOOD COUNT 2.9 K/UL (4.8-10.8)
[2016-10-30 09:49] LABS: ALANINE AMINOTRANSFERASE 10 U/L (3-41); ALBUMIN/GLOBULIN RATIO 1.2 (1.0-2.7); ANION GAP 14 (5-15); ASPARTATE AMINO TRANSFERASE 11 U/L (5-40); CALCIUM 10.4 mg/dL (8.6-10.2); CARBON DIOXIDE 26 mEQ/L (20-30); CHLORIDE 96 mEQ/L (98-107); GLOMERULAR FILTRATION RATE > 60 mL/min (>60); HEMOLYSIS 4; POTASSIUM 4.2 mEQ/L (3.4-4.9); SODIUM 136 mEQ/L (135-145); TOTAL PROTEIN 7.6 g/dL (6.6-8.7)
[2016-10-30 10:17] LABS: ANISOCYTOSIS 1+; BAND NEUTROPHILS % (MANUAL) 0 % (0-8); BASOPHILS % (MANUAL) 0 % (0-2); EOSINOPHILS % (MANUAL) 5 % (0-3); LYMPHOCYTES % (MANUAL) 32 % (20-45); MICROCYTES 1+; NEUTROPHILS % (MANUAL) 50 % (45-75); PLATELET ESTIMATE ADEQUATE; PLATELET MORPHOLOGY NORMAL; TOTAL CELLS COUNTED 100
--- NOTE | 2016-10-30 13:13 | Infectious Diseases Prog Note ---
Assessment/Plan Assessment/Plan A 1. right 2nd, 3rd, 4th fingers stump cellulitis 2. PVD 3. DM 4. 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 continue vancomycin iv, Zosyn 2. will follow up cultures Subjective ROS Limited/Unobtainable: Yes Musculoskeletal: Reports: pain Allergies: Coded Allergies: No Known Allergies (Unverified , 05/30/16) Objective Vital Signs Last 24 Hour Vital Signs Date Time Temp Pulse Resp B/P Pulse Ox O2 Delivery O2 Flow Rate FiO2 10/30/16 12:00 96.8 70 18 104/74 98 Room Air 10/30/16 09:00 113/72 10/30/16 08:21 93 113/72 10/30/16 08:00 96.4 93 18 113/72 97 Room Air 10/30/16 04:00 97.6 96 20 107/75 98 Room Air 10/30/16 00:00 96.6 92 18 105/66 96 Room Air 10/29/16 21:00 87 99/71 10/29/16 20:00 96.6 92 18 105/66 96 Room Air 10/29/16 16:00 97.2 85 20 100/68 97 Room Air Height (Feet): 6 Weight (Pounds): 165 General Appearance: no acute distress HEENT: mucous membranes moist Respiratory/Chest: lungs clear Cardiovascular: normal rate Abdomen: soft, non tender, other - GT feeding Extremities: no edema, other - right 2nd,3rd & 4th finger tip erythema @ amputation sites, left arm PICC line Neurologic/Psychiatric: alert, responsive Laboratory Tests Test 10/30/16 08:45 White Blood Count 2.9 K/UL (4.8-10.8) L Red Blood Count 5.30 M/UL (4.70-6.10) Hemoglobin 12.8 G/DL (14.2-18.0) L Hematocrit 40.1 % (42.0-52.0) L Mean Corpuscular Volume 76 FL (80-99) L Mean Corpuscular Hemoglobin 24.2 PG (27.0-31.0) L Mean Corpuscular Hemoglobin Concent 32.0 G/DL (32.0-36.0) Red Cell Distribution Width 17.4 % (11.6-14.8) H Platelet Count 200 K/UL (150-450) Mean Platelet Volume 8.8 FL (6.5-10.1) Neutrophils (%) (Auto) % (45.0-75.0) Lymphocytes (%) (Auto) % (20.0-45.0) Monocytes (%) (Auto) % (1.0-10.0) Eosinophils (%) (Auto) % (0.0-3.0) Basophils (%) (Auto) % (0.0-2.0) Differential Total Cells Counted 100 Neutrophils % (Manual) 50 % (45-75) Lymphocytes % (Manual) 32 % (20-45) Monocytes % (Manual) 13 % (1-10) H Eosinophils % (Manual) 5 % (0-3) H Basophils % (Manual) 0 % (0-2) Band Neutrophils 0 % (0-8) Platelet Estimate Adequate Platelet Morphology Normal Anisocytosis 1+ Microcytosis 1+ Sodium Level 136 mEQ/L (135-145) Potassium Level 4.2 mEQ/L (3.4-4.9) Chloride Level 96 mEQ/L (98-107) L Carbon Dioxide Level 26 mEQ/L (20-30) Anion Gap 14 (5-15) Blood Urea Nitrogen 16 mg/dL (7-23) Creatinine 1.0 mg/dL (0.7-1.2) Estimat Glomerular Filtration Rate > 60 mL/min (>60) Glucose Level 107 mg/dL (74-106) H Calcium Level 10.4 mg/dL (8.6-10.2) H Total Bilirubin 0.4 mg/dL (0.0-1.2) Aspartate Amino Transf (AST/SGOT) 11 U/L (5-40) Alanine Aminotransferase (ALT/SGPT) 10 U/L (3-41) Alkaline Phosphatase 76 U/L (40-129) Total Protein 7.6 g/dL (6.6-8.7) Albumin 4.2 g/dL (3.5-5.2) Globulin 3.4 g/dL Albumin/Globulin Ratio 1.2 (1.0-2.7) Current Medications Medications (Trade) Dose Ordered Sig/Mateo Route PRN Reason Start Time Stop Time Status Last Admin Dose Admin Acetaminophen (Tylenol) 650 mg Q4HR PRN ORAL Prn Headache/Temp > 101 10/26/16 17:15 11/25/16 17:14 Aspirin (ASA) 81 mg DAILY GT 10/27/16 09:00 11/26/16 08:59 10/30/16 08:21 Chlorhexidine Gluconate (Chelsey-Hex 2%) 1 applic DAILY TOPIC 10/27/16 09:00 11/26/16 08:59 10/30/16 08:32 Dextrose (Dextrose 50%) STAT PRN IV Hypoglycemia 10/26/16 17:30 11/25/16 17:29 Docusate Sodium (Colace) 100 mg TWICE A DAY GT 10/26/16 21:00 11/25/16 20:59 10/30/16 08:16 Epoetin Zia (Procrit (for non ESRD use)) 10,000 units SUN-SUN-SUN SUBQ 10/30/16 21:00 11/29/16 20:59 Fish Oil (Fish Oil) 1,000 mg DAILY ORAL 10/27/16 09:00 11/26/16 08:59 10/30/16 08:16 Gemfibrozil 600 mg 600 mg BID GT 10/29/16 09:00 11/28/16 08:59 10/30/16 08:17 Heparin Sodium (Porcine) (Heparin 5000 units/ml) 5,000 units EVERY 12 HOURS SUBQ 10/26/16 21:00 11/25/16 20:59 10/30/16 08:19 Hydrogen Peroxide (Hydrogen Peroxide) 1 applic THREE TIMES A DAY TOPIC 10/27/16 21:00 11/26/16 20:59 10/30/16 08:22 Insulin Aspart (NovoLOG) Q6HR SUBQ 10/27/16 00:00 11/26/16 00:00 10/29/16 12:30 Insulin Detemir (Levemir) 5 units Q12HR@0600,1800 SUBQ 10/26/16 21:00 11/25/16 20:59 10/29/16 06:21 Levetiracetam (Keppra) 500 mg EVERY 12 HOURS GT 10/26/16 21:00 11/25/16 20:59 10/30/16 08:20 Lisinopril (Prinivil) 20 mg DAILY ORAL 10/27/16 09:00 11/26/16 08:59 10/28/16 09:36 Lorazepam (Ativan 2mg/ml 1ml) 1 mg Q4H PRN IV For Anxiety 10/28/16 20:45 11/04/16 20:44 10/30/16 08:17 Metoprolol Tartrate (Lopressor) 50 mg EVERY 12 HOURS NG 10/26/16 21:00 11/25/16 20:59 10/30/16 08:21 Multivitamins (Multivitamins W/ Minerals 15ml Liquid) 15 ml DAILY GT 10/27/16 09:00 11/26/16 08:59 10/30/16 08:21 Piperacillin Sod/ Tazobactam Sod/ Dextrose (Zosyn/D5W) 110 ml @ 27.5 mls/hr EVERY 8 HOURS IVPB 10/26/16 22:00 10/31/16 21:59 10/30/16 05:03 Povidone Iodine (Betadine Ramila) 1 applic THREE TIMES A DAY TOPIC 10/27/16 21:00 11/26/16 20:59 10/30/16 08:23 Sennosides (Senokot) 8.6 mg DAILY GT 10/27/16 09:00 11/26/16 08:59 10/30/16 08:31 Sodium Chloride 1,000 ml @ 0 mls/hr THREE TIMES A DAY IRRIG 10/29/16 10:00 11/28/16 09:59 10/30/16 08:24 Vancomycin HCl 1 ea 1 ea DAILY PRN MISC Per rx protocol 10/26/16 17:15 11/25/16 17:14 Vancomycin HCl/ Dextrose (Vancomycin/D5W) 275 ml @ 183.708 mls/hr Q12HR@0000,1200 IVPB 10/29/16 12:00 11/03/16 11:59 10/30/16 12:35 DE REILLY Oct 30, 2016 13:13
--- NOTE | 2016-10-30 14:10 | Diagnostic Imaging Report ---
APPROVED REPORT CPT Code: 34810 Present Symptoms Lower Extremity Pain: Bilateral Past History DVT :Bilateral BILATERAL: Venous imaging reveals recanalized chronic thrombus in the superficial femoral, popliteal and the calf veins. Large collateral veins are seen anterior to the superficial femoral artery. The remainder of the deep venous system is within normal limits. There is no evidence of thrombus in the common femoral veins bilaterally. The greater saphenous veins are also within normal limits. Doppler indicates normal spontaneous flow within these segments.
[2016-10-30] MEDS ORDERED: Epogen (for non ESRD use) SUBQ SCH (21:00)
[2016-10-31 04:00] VITALS: BP 108/76
[2016-10-31] MEDS: LORazepam Inj 2mg/ml 1ml IV PRN (05:41)
[2016-10-31] MEDS: Piperacillin/Tazobactam 3.375 GM in D5W 110 ML IVPB SCH (05:41)
[2016-10-31] MEDS: Levemir Flexpen SUBQ SCH (05:42)
[2016-10-31] MEDS: NovoLOG Insulin Flexpen SUBQ SCH ×3 (05:43→13:09)
--- NOTE | 2016-10-31 07:55 | General Progress Note ---
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 - Postconcussional syndrome SNOMED: 14322258 (4) Encephalopathy ICD Codes: G93.40 - Encephalopathy, unspecified SNOMED: 97983739, 430578341 Status: stable, not improved Assessment/Plan iv abx local wound care per plastics follow up cultures pain rx plastics to re-evaluate pt today not ready for dc Subjective ROS Limited/Unobtainable: Yes Constitutional: Reports: malaise, weakness HEENT: Reports: no symptoms Cardiovascular: Reports: no symptoms Respiratory: Reports: no symptoms Gastrointestinal/Abdominal: Reports: difficulty swallowing Genitourinary: Reports: no symptoms Neurologic/Psychiatric: Reports: pre-existing deficit Endocrine: Reports: no symptoms Hematologic/Lymphatic: Reports: no symptoms Allergies: Coded Allergies: No Known Allergies (Unverified , 05/30/16) All Systems: reviewed and negative except above Subjective no events. confused. tolerating feeds 2 3 4 finger right hand red and swollen. no significant change no real improvement noted Objective Last 24 Hour Vital Signs Date Time Temp Pulse Resp B/P Pulse Ox O2 Delivery O2 Flow Rate FiO2 10/31/16 04:00 97.2 89 18 108/76 93 Room Air 10/30/16 23:44 97.0 68 18 125/74 96 Room Air 10/30/16 21:01 77 105/57 10/30/16 20:00 98.0 79 20 131/76 97 Room Air 10/30/16 16:00 95.4 77 18 105/57 100 Room Air 10/30/16 12:00 96.8 70 18 104/74 98 Room Air 10/30/16 09:00 113/72 10/30/16 08:21 93 113/72 10/30/16 08:00 96.4 93 18 113/72 97 Room Air Intake and Output 10/30/16 10/31/16 19:00 07:00 Intake Total 930.000 ml 802.5 ml Balance 930.000 ml 802.5 ml Free Water 190 ml 200 ml IV Total 440.000 ml 302.5 ml Tube Feeding 300 ml 300 ml # Voids 3 2 # Bowel Movements 1 Laboratory Tests 10/30/16 08:45: White Blood Count 2.9L, Red Blood Count 5.30, Hemoglobin 12.8L, Hematocrit 40.1L , Mean Corpuscular Volume 76L, Mean Corpuscular Hemoglobin 24.2L, Mean Corpuscular Hemoglobin Concent 32.0, Red Cell Distribution Width 17.4H, Platelet Count 200, Mean Platelet Volume 8.8, Neutrophils (%) (Auto) , Lymphocytes (%) (Auto) , Monocytes (%) (Auto) , Eosinophils (%) (Auto) , Basophils (%) (Auto) , Differential Total Cells Counted 100, Neutrophils % ( Manual) 50, Lymphocytes % (Manual) 32, Monocytes % (Manual) 13H, Eosinophils % ( Manual) 5H, Basophils % (Manual) 0, Band Neutrophils 0, Platelet Estimate Adequate, Platelet Morphology Normal, Anisocytosis 1+, Microcytosis 1+, Sodium Level 136, Potassium Level 4.2, Chloride Level 96L, Carbon Dioxide Level 26, Anion Gap 14, Blood Urea Nitrogen 16, Creatinine 1.0, Estimat Glomerular Filtration Rate > 60, Glucose Level 107H, Calcium Level 10.4H, Total Bilirubin 0.4, Aspartate Amino Transf (AST/SGOT) 11, Alanine Aminotransferase (ALT/SGPT) 10, Alkaline Phosphatase 76, Total Protein 7.6, Albumin 4.2, Globulin 3.4, Albumin/Globulin Ratio 1.2 Height (Feet): 6 Weight (Pounds): 165 Objective General Appearance: WD/WN, alert, confused Neck: supple Cardiovascular: regular rhythm Respiratory/Chest: lungs clear, normal breath sounds, no respiratory distress, no accessory muscle use Abdomen: normal bowel sounds, non tender, soft, no organomegaly, no mass Extremities: other - right hand 2 3 4 finger red swollen and induated Edema: no edema noted Arm (L), no edema noted Arm (R), no edema noted Leg (L), no edema noted Leg (R), no edema noted Pedal (L), no edema noted Pedal (R), no edema noted Generalized Neurologic: alert, responsive, disoriented DARYN JEREZ Oct 31, 2016 07:55
[2016-10-31] MEDS: Aspirin Baby 81mg GT SCH (08:27)
[2016-10-31] MEDS: Multivitamins W/Minerals 15 ML UDC GT SCH (08:28)
[2016-10-31] MEDS: Docusate 100mg/10ml Liq GT SCH (08:28)
[2016-10-31] MEDS: levETIRAcetam 500mg/5ml Liquid GT SCH (08:28)
[2016-10-31] MEDS: Dyna-Hex 2% Top Sol 8oz TOPIC SCH (08:29)
[2016-10-31] MEDS: NS Irrig 1000ml 1,000 ML IRRIG SCH ×2 (08:31→13:16)
[2016-10-31] MEDS: Lisinopril 20mg tab ORAL SCH (08:35)
[2016-10-31] MEDS: Metoprolol 50mg tab NG SCH (08:36)
[2016-10-31] MEDS: Hydrogen Peroxide 473ml Bottle TOPIC SCH ×2 (08:37→13:11)
[2016-10-31] MEDS: Heparin 5000 units/ml inj SUBQ SCH (08:37)
[2016-10-31] MEDS: Betadine 4oz Bottle TOPIC SCH ×2 (08:38→13:11)
[2016-10-31 08:56] VITALS: BP 106/73
[2016-10-31] MEDS ORDERED: D5W 275ml ONE (11:03)
[2016-10-31] MEDS ORDERED: Sterile Water Irrig 1000ml IRRIG ONE (11:03)
[2016-10-31] MEDS ORDERED: Tubing IV Secondary IV ONE (11:03)
[2016-10-31] MEDS ORDERED: NS Irrig 1000ml ONE (11:03)
--- NOTE | 2016-10-31 11:37 | Infectious Diseases Prog Note ---
Assessment/Plan Assessment/Plan antibiotics : vancomycin iv, zosyn A 1. right 2nd, 3rd, 4th fingers stump cellulitis improving 2. PVD 3. DM 4. s/p bilateral TMA P 1. continue vancomycin iv 2. d/c zosyn 3. will follow up cultures Subjective ROS Limited/Unobtainable: Yes Allergies: Coded Allergies: No Known Allergies (Unverified , 05/30/16) Objective Vital Signs Last 24 Hour Vital Signs Date Time Temp Pulse Resp B/P Pulse Ox O2 Delivery O2 Flow Rate FiO2 10/31/16 08:56 97.0 92 19 106/73 95 Room Air 10/31/16 08:36 98 114/81 10/31/16 08:35 114/81 10/31/16 04:00 97.2 89 18 108/76 93 Room Air 10/30/16 23:44 97.0 68 18 125/74 96 Room Air 10/30/16 21:01 77 105/57 10/30/16 20:00 98.0 79 20 131/76 97 Room Air 10/30/16 16:00 95.4 77 18 105/57 100 Room Air 10/30/16 12:00 96.8 70 18 104/74 98 Room Air Height (Feet): 6 Weight (Pounds): 165 Respiratory/Chest: lungs clear Cardiovascular: normal rate, regular rhythm, no gallop/murmur Abdomen: soft, non tender, other - GT Extremities: no edema, other - stumps clean, right 2nd, 3rd, 4th finger stump erythema decreased COLTON GONZALEZ Oct 31, 2016 11:37
[2016-10-31 11:54] VITALS: BP 99/63
[2016-10-31] MEDS ORDERED: HYDROmorphone 1mg/ml Carpuject IM ONE (12:45)
--- NOTE | 2016-10-31 12:58 | General Progress Note ---
Assessment/Plan Status Narrative right 2nd, 3rd, 4th fingers stump cellulitis improving Assessment/Plan MRI/Ct not suggestive of osteomylitis recommend abx per ID- recommend ABX for discharge to SNF no further surgical intervention required at this time ok from plastics for D/C to snf on ABX per ID recommendations Continue with H2O2 soaks of hand with painting tips with betadine post soak recommend strict hand elevation at all times Subjective Date patient seen: Oct 31, 2016 ROS Limited/Unobtainable: Yes Allergies: Coded Allergies: No Known Allergies (Unverified , 05/30/16) Subjective notes discomfort with fingers to right hand Objective Last 24 Hour Vital Signs Date Time Temp Pulse Resp B/P Pulse Ox O2 Delivery O2 Flow Rate FiO2 10/31/16 11:54 96.4 71 19 99/63 100 Room Air 10/31/16 08:56 97.0 92 19 106/73 95 Room Air 10/31/16 08:36 98 114/81 10/31/16 08:35 114/81 10/31/16 04:00 97.2 89 18 108/76 93 Room Air 10/30/16 23:44 97.0 68 18 125/74 96 Room Air 10/30/16 21:01 77 105/57 10/30/16 20:00 98.0 79 20 131/76 97 Room Air 10/30/16 16:00 95.4 77 18 105/57 100 Room Air Intake and Output 10/30/16 10/31/16 19:00 07:00 Intake Total 930.000 ml 832.5 ml Balance 930.000 ml 832.5 ml Free Water 190 ml 200 ml IV Total 440.000 ml 302.5 ml Tube Feeding 300 ml 330 ml # Voids 3 2 # Bowel Movements 1 Height (Feet): 6 Weight (Pounds): 165 Objective right 2nd, 3rd, 4th fingers stump cellulitis improving sutures removed at bedside wounds healing no signs of underlying fluid collection FELICIA BELTRÁN Oct 31, 2016 12:58
[2016-10-31] MEDS: Vancomycin 1gm/D5W 275ml IVPB SCH ×2 (13:59)
[2016-10-31] MEDS ORDERED: VANCOMYCIN1 GM/2502 IVPB (14:33)
[2016-10-31 16:11] VITALS: BP 104/69
--- NOTE | 2016-11-01 02:15 | Progress Note ---
DATE: 10/30/2016 LATE ENTRY CARDIOLOGY PROGRESS NOTE: SUBJECTIVE: Pain is controlled. Redness is unchanged in the right second fourth finger. The patient is tolerating his G-tube feeding. OBJECTIVE: VITAL SIGNS: Afebrile, blood pressure 107/75, pulse 96, and respiratory rate 20. LUNGS: Clear. CARDIAC: Regular. Normal S1 and S2 with a fourth heart sound. ABDOMEN: Soft. G-tube intact. EXTREMITIES: Edema and redness of the right 2nd to 4th digits only. Amputated toe sites from previous treatment are healed. LABORATORY DATA: White count is 2.9, hemoglobin 12.8, and platelets 200,000. Sodium is 136, potassium 4.2, glucose 107, bicarbonate 26, BUN 16, and creatinine 1.0. IMPRESSION: 1. Peripheral artery disease. 2. Cellulitis of amputated digits. 3. Dyslipidemia. 4. Insulin-requiring diabetes mellitus. 5. Hypertensive heart disease. 6. Dysphagia with gastrostomy tube. PLAN: Lipid therapy was adjusted yesterday. Continue insulin titration. Antimicrobials. Pain control and local wound care. Current cardiovascular regimen is adequate. Morales Serrano M.D. DR: Naldo JOB#: [id number] CC:
--- NOTE | 2016-11-01 08:00 | Progress Note ---
DATE: 10/31/2016 CARDIOLOGY PROGRESS NOTE SUBJECTIVE: The patient was seen by Plastic Surgery. The patient is cleared for intermediate management, clinically unchanged. OBJECTIVE: VITAL SIGNS: Stable. Blood pressure 108/76, pulse 89, and respirations 18. No fevers. LUNGS: Clear. CARDIAC: Regular. No murmur. ABDOMEN: Soft. NG-tube intact. EXTREMITIES: Digits are red. No drainage. Less edema. Otherwise, exam is unchanged. IMPRESSION: 1. Cellulitis. 2. Amputated digits. 3. Severe peripheral artery disease. 4. Insulin-requiring diabetes. 5. Severe hyperlipidemia. 6. Hypertensive heart disease. PLAN: Continue anti-lipid and anti-platelet therapy as prescribed. Pain control, antimicrobials, and wound care. Titrate antihypertensives based on clinical parameters. Avoid tight blood pressure control in this clinical setting. Morales Serrano M.D. DR: Patrick JOB#: [id number] CC:
--- NOTE | 2016-11-02 14:21 | Discharge Summary ---
Discharge Summary Hospital Course Date of Admission Oct 26, 2016 at 15:38 Date of Discharge Oct 31, 2016 at 16:45 Admitting Diagnosis HPI Shoaib De Anda is a 56 year old male who was admitted on Oct 26, 2016 at 15:38 for Cellulitis (Finger) Hospital Course [id number] Discharge Discharge Disposition Patient was discharged to SNF/Subacute Facility(03) Discharge Diagnoses: Abeba Owens NP Nov 02, 2016 14:21
--- NOTE | 2016-11-03 04:00 | Discharge Summary 2 SIG ---
DATE OF ADMISSION: 10/26/2016 DATE OF DISCHARGE: 10/31/2016 CONSULTANTS: 1. Jon Baird M.D. 2. Lobo Bowles M.D. 3. Morales Serrano M.D. 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 He was seen by Plastic surgery on day of admission, and there was concern about possible ongoing infection. The patient was admitted for further evaluation and care. Dr. Bowles was consulted and the patient was given IV vancomycin and Zosyn. PICC line was inserted to the left upper extremity. Dr. Baird was consulted. Culture of the wound was done and recommended wound care and hand elevation. Hand was notable for healing wound of the index middle and ring finger tips. There is crusting of incisions and sutures were removed. There was appropriate range of motion. Dr. eSrrano was also consulted for evaluation of peripheral artery insufficiency as the patient has significant microvascular disease with ischemia and gangrene of both upper and lower extremities and had been noncompliant with dressing changes and wound care at the facility. Hand CT and MRI was done. Per surgical evaluation, no further surgical intervention required. MRI not suggestive of osteomyelitis. Advised to continue with wound care and recommended strict hand elevation at all times. He was eventually cleared for discharge. Zosyn was discontinued. Anti-lipid and anti-platelet therapy was continued. The patient was eventually discharged back to SNF to continue vancomycin for ten more days. FINAL DIAGNOSES: 1. Cellulitis of the hand. 2. Amputated digits. 3. Severe peripheral artery disease. 4. Insulin-requiring diabetes. 5. Severe hyperlipidemia. 6. Hypertensive heart disease. 7. Dysphagia with gastrostomy tube. 8. Encephalopathy . 9. Sacral stage III pressure ulcer present on admission . Raul Del Cid M.D. I have been assigned to dictate discharge summary on this account and I was not involved in the patient's management. Abeba Owens N.P. DR: Roxie JOB#: [id number] CC: [facility]
== END 2016-10-31 16:45 | DRG 564 ==
LOC: UNDOADMIN 13:27 → SDSOVERFLO 13:27 → 4E 15:38
PROC: 02HV33Z Insertion of Infusion Device into Superior Vena Cava, Percutaneous Approach (ICD-10-PCS; principal; 2016-10-26)
DX: T87.41 Infection of amputation stump, right upper extremity (principal); G92 Toxic encephalopathy; L89.153 Pressure ulcer of sacral region, stage 3; I11.9 Hypertensive heart disease without heart failure; Z43.1 Encounter for attention to gastrostomy; L03.113 Cellulitis of right upper limb; E11.9 Type 2 diabetes mellitus without complications; R13.10 Dysphagia, unspecified; I73.9 Peripheral vascular disease, unspecified; Y83.5 Amputation of limb(s) as the cause of abnormal reaction of the patient, or of later complication, without mention of misadventure at the time of the procedure; Z89.021 Acquired absence of right finger(s); E78.1 Pure hyperglyceridemia; G40.909 Epilepsy, unspecified, not intractable, without status epilepticus; Z87.820 Personal history of traumatic brain injury; Z79.4 Long term (current) use of insulin; Z91.19 Patient's noncompliance with other medical treatment and regimen; R07.9 Chest pain, unspecified; R00.0 Tachycardia, unspecified; E78.5 Hyperlipidemia, unspecified; Z89.432 Acquired absence of left foot; Z89.431 Acquired absence of right foot; Z22.322 Carrier or suspected carrier of Methicillin resistant Staphylococcus aureus
CPT/HCPCS: 36415; 36569; 76937; 80048; 80053; 80061; 80076; 80202; 82962; 83735; 85007; 85025; 87081; 93970; A4246; J1815; S5561

== ENCOUNTER 2017-03-01 17:29 | Emergency (ER) | payer MEDICARE, MEDICAID ==
[~2017-03-01] VITALS: Ht 175.3 cm; Wt 72.6 kg
[~2017-03-01 17:29] MED LIST changes: +NORCO 5-325 TA1 EAC1 GT; +PRO-STAT LIQUID30 ML GT; +VANCOMYCIN1 GM/2502 IVPB
[2017-03-01 17:41] VITALS: BP 108/71
[2017-03-01] MEDS ORDERED: Sodium Chloride 500ML 500 ML IV ONE (18:38)
[2017-03-01 19:48] LABS: EOSINOPHILS % (AUTO) 3.6 % (0.0-3.0); LYMPHOCYTES % (AUTO) 39.1 % (20.0-45.0); MEAN CORPUSCULAR HEMOGLOBIN 25.9 PG (27.0-31.0); MEAN CORPUSCULAR HGB CONC 30.3 G/DL (32.0-36.0); MEAN CORPUSCULAR VOLUME 86 FL (80-99); MEAN PLATELET VOLUME 6.7 FL (6.5-10.1); MONOCYTES % (AUTO) 11.6 % (1.0-10.0); NEUTROPHILS % (AUTO) 44.8 % (45.0-75.0); PLATELET COUNT 213 K/UL (150-450); RED BLOOD COUNT 5.03 M/UL (4.70-6.10); RED CELL DISTRIBUTION WIDTH 12.9 % (11.6-14.8); WHITE BLOOD COUNT 4.7 K/UL (4.8-10.8)
[2017-03-01 20:06] LABS: ALANINE AMINOTRANSFERASE 18 U/L (3-41); ALBUMIN/GLOBULIN RATIO 1.2 (1.0-2.7); ANION GAP 12 (5-15); ASPARTATE AMINO TRANSFERASE 17 U/L (5-40); CALCIUM 9.9 mg/dL (8.6-10.2); CARBON DIOXIDE 27 mEQ/L (20-30); CHLORIDE 99 mEQ/L (98-107); CREATININE 1.2 mg/dL (0.7-1.2); GLOMERULAR FILTRATION RATE > 60 mL/min (>60); HEMOLYSIS 9; LIPASE 24 U/L (< 60); POTASSIUM 4.3 mEQ/L (3.4-4.9); SODIUM 138 mEQ/L (135-145); TOTAL PROTEIN 7.8 g/dL (6.6-8.7)
[2017-03-01 20:40] LABS: TROPONIN I < 0.30 ng/mL (<=0.30)
[2017-03-01 21:05] LABS: APPEARANCE,URINE CLEAR; KETONES,URINE NEGATIVE (NEGATIVE); LEUKOCYTE ESTERASE ,URINE NEGATIVE (NEGATIVE); NITRITE,URINE NEGATIVE (NEGATIVE); PH,URINE 5 (4.5-8.0); PROTEIN,URINE NEGATIVE (NEGATIVE); UROBILINOGEN,URINE NORMAL MG/DL (0.0-1.0)
--- NOTE | 2017-03-01 23:12 | Emergency Room Report ---
History of Present Illness General Chief Complaint: General Complaint Source: Patient, EMS Present Illness HPI 50-year-old male presents ED for evaluation. Per EMS patient was screaming and agitated at his alf today. Patient was sent in for evaluation. Patient states he feels okay. Does not know why he was sent here. Does not feel angry or upset. Denies any pain. Denies any fevers chills. Denies cough. No aggravating or leading factors. Denies any other associated symptoms Allergies: Coded Allergies: No Known Allergies (Unverified , 05/30/16) Patient History Past Medical History: DM, seizures, other Past Surgical History: other - gtube Pertinent Family History: none Social History: Denies: smoking, alcohol use, drug use Immunizations: UTD Reviewed Nursing Documentation: PMH: Agreed, PSxH: Agreed Nursing Documentation-PMH Past Medical History: Deferred Hx Cardiac Problems: Yes - IVC filter, hyperlipidemia Hx Hypertension: Yes Hx Diabetes: Yes - DM type II Hx Cancer: No Hx Gastrointestinal Problems: Yes - G-tube feeding,dysphagia Hx Neurological Problems: Yes Hx Seizures: Yes Hx Epilepsy: Yes Hx Dysphasia: Yes Review of Systems All Other Systems: negative except mentioned in HPI Physical Exam Vital Signs Date Time Temp Pulse Resp B/P (MAP) Pulse Ox O2 Delivery O2 Flow Rate FiO2 03/01/17 17:31 70 18 102/70 96 Room Air 03/01/17 17:41 97.5 Sp02 EP Interpretation: reviewed, normal General Appearance: no apparent distress, alert, GCS 15, non-toxic Head: normocephalic, atraumatic Eyes: bilateral eye normal inspection, bilateral eye PERRL ENT: hearing grossly normal, normal pharynx, no angioedema, normal voice Neck: full range of motion, supple/symm/no masses Respiratory: chest non-tender, lungs clear, normal breath sounds, speaking full sentences Cardiovascular #1: regular rate, rhythm, no edema Cardiovascular #2: 2+ carotid (R), 2+ carotid (L), 2+ radial (R), 2+ radial (L) , 2+ dorsalis pedis (R), 2+ dorsalis pedis (L) Gastrointestinal: normal bowel sounds, non tender, soft, non-distended, no guarding, no rebound, other - Gtube Rectal: deferred Genitourinary: normal inspection, no CVA tenderness Musculoskeletal: back normal, gait/station normal, normal range of motion, non- tender Neurologic: alert, oriented x3, responsive, motor strength/tone normal, sensory intact, speech normal Psychiatric: judgement/insight normal, memory normal, mood/affect normal, no suicidal/homicidal ideation Reflexes: 3+ bicep (R), 3+ bicep (L), 3+ tricep (R), 3+ tricep (L), 3+ knee (R) , 3+ knee (L) Skin: normal color, no rash, warm/dry, well hydrated Lymphatic: no adenopathy Medical Decision Making Diagnostic Impression: Primary Impression: Behavioral change ER Course 56-year-old male presents to ED for evaluation. Found screaming and yelling a alf Differential-delirium, dementia, psychosis, pain Patient placed on stretcher Initial history physical exam reveals a middle-age male in no acute distress. Patient is calm cooperative. Awake alert oriented x3. Speaking appropriately. Remainder physical exam is unremarkable. Patient does have a G-tube in place. I ordered labs and urine which were unremarkable Patient remains calm, appropriate here in ED. Discussed findings with PMD Dr. Del Cid and agrees the patient can be discharged back to facility Diagnoses-behavioral change Stable and discharged to shelter facility. Followup with PMD. Return to ED if symptoms recur or worsen Labs Test 03/01/17 19:20 03/01/17 20:30 White Blood Count 4.7 K/UL (4.8-10.8) Red Blood Count 5.03 M/UL (4.70-6.10) Hemoglobin 13.0 G/DL (14.2-18.0) Hematocrit 43.0 % (42.0-52.0) Mean Corpuscular Volume 86 FL (80-99) Mean Corpuscular Hemoglobin 25.9 PG (27.0-31.0) Mean Corpuscular Hemoglobin Concent 30.3 G/DL (32.0-36.0) Red Cell Distribution Width 12.9 % (11.6-14.8) Platelet Count 213 K/UL (150-450) Mean Platelet Volume 6.7 FL (6.5-10.1) Neutrophils (%) (Auto) 44.8 % (45.0-75.0) Lymphocytes (%) (Auto) 39.1 % (20.0-45.0) Monocytes (%) (Auto) 11.6 % (1.0-10.0) Eosinophils (%) (Auto) 3.6 % (0.0-3.0) Basophils (%) (Auto) 1.0 % (0.0-2.0) Sodium Level 138 mEQ/L (135-145) Potassium Level 4.3 mEQ/L (3.4-4.9) Chloride Level 99 mEQ/L (98-107) Carbon Dioxide Level 27 mEQ/L (20-30) Anion Gap 12 (5-15) Blood Urea Nitrogen 24 mg/dL (7-23) Creatinine 1.2 mg/dL (0.7-1.2) Estimat Glomerular Filtration Rate > 60 mL/min (>60) Glucose Level 108 mg/dL (74-106) Calcium Level 9.9 mg/dL (8.6-10.2) Total Bilirubin < 0.2 mg/dL (0.0-1.2) Aspartate Amino Transf (AST/SGOT) 17 U/L (5-40) Alanine Aminotransferase (ALT/SGPT) 18 U/L (3-41) Alkaline Phosphatase 85 U/L (40-129) Troponin I < 0.30 ng/mL (<=0.30) Total Protein 7.8 g/dL (6.6-8.7) Albumin 4.4 g/dL (3.5-5.2) Globulin 3.4 g/dL Albumin/Globulin Ratio 1.2 (1.0-2.7) Lipase 24 U/L (< 60) Urine Color Pale yellow Urine Appearance Clear Urine pH 5 (4.5-8.0) Urine Specific [place] 1.015 (1.005-1.035) Urine Protein Negative (NEGATIVE) Urine Glucose (UA) 3+ (NEGATIVE) Urine Ketones Negative (NEGATIVE) Urine Occult Blood Negative (NEGATIVE) Urine Nitrite Negative (NEGATIVE) Urine Bilirubin Negative (NEGATIVE) Urine Urobilinogen Normal MG/DL (0.0-1.0) Urine Leukocyte Esterase Negative (NEGATIVE) Last Vital Signs Date Time Temp Pulse Resp B/P (MAP) Pulse Ox O2 Delivery O2 Flow Rate FiO2 03/01/17 17:41 97.5 66 12 108/71 100 Room Air Status: improved Disposition: XFER SNF Condition: Stable Patient Instructions: Dementia, [id number] ALLISON TELLEZ M.D. Mar 01, 2017 23:12
[2017-03-01 23:27] VITALS: BP 111/81
[2017-03-01 23:32] VITALS: BP 111/81
--- NOTE | 2017-03-02 10:48 | Diagnostic Imaging Report ---
Indication: Dyspnea Comparison: 10/04/16 A single view chest radiograph was obtained. Findings: Heart is normal in size. Sternotomy noted. Interstitial edema suspected. Lung volumes are low. The bones are slight osteopenic. Impression: Suspected interstitial edema.
== END 2017-03-01 23:37 ==
LOC: EDBD 17:29 → EMR 18:30
DX: F91.9 Conduct disorder, unspecified (principal); I10 Essential (primary) hypertension; E11.9 Type 2 diabetes mellitus without complications; E78.5 Hyperlipidemia, unspecified; R13.10 Dysphagia, unspecified; Z93.1 Gastrostomy status
CPT/HCPCS: 36415; 71010; 80053; 81003; 83690; 84484; 85025; 99284

== ENCOUNTER 2018-05-16 23:49 | Inpatient (IN) | payer MEDICARE, MEDICAID ==
[~2018-05-16] VITALS: Ht 170.2 cm; Wt 83.9 kg
[2018-05-17] VITALS (8 sets, daily range): BP systolic 63–96; BP diastolic 43–68
--- NOTE | 2018-05-17 00:17 | Emergency Room Report ---
History of Present Illness General Chief Complaint: Upper Extremity Injury Source: Patient, Medical Record, EMS Present Illness HPI Patient presents by paramedics with complaints of swelling to the left hand On with the past 2 days Patient has previous large CVA has difficulty providing history History of present illness is limited Patient was here previously with right hand infection and distal finger amputations With this presentation it's unclear regarding any trauma Patient does grimace and knods his head up and down for pain on the left hand Unknown regarding fever Allergies: Coded Allergies: No Known Allergies (Unverified , 05/16/18) Patient History Limited by: medical condition Past Surgical History: unable to obtain Reviewed Nursing Documentation: PMH: Agreed; PSxH: Agreed Nursing Documentation-PMH Hx Hypertension: Yes Hx Diabetes: Yes Hx Cancer: No Hx Gastrointestinal Problems: Yes - G-tube feeding,dysphagia Hx Dialysis: No - CKD Hx Seizures: Yes Hx Epilepsy: Yes Hx Dysphasia: Yes Review of Systems All Other Systems: limited - Other than the ones mentioned in the history of present illness all others are reviewed however they do stay limited due to the patient's mental status Physical Exam Vital Signs Date Time Temp Pulse Resp B/P (MAP) Pulse Ox O2 Delivery O2 Flow Rate FiO2 05/16/18 23:50 97.5 95 14 90/59 94 Room Air Sp02 EP Interpretation: reviewed, normal General Appearance: no apparent distress Head: normocephalic, atraumatic Eyes: bilateral eye PERRL ENT: dry mucus membranes Neck: supple Respiratory: lungs clear, normal breath sounds Cardiovascular #1: regular rate, rhythm Gastrointestinal: non tender, soft Musculoskeletal: other - Patient has some limited movement of his extremities, distal right finger amputations, pain with movement of the left hand or any manipulation of the left forearm, mild swelling is noted to the left hand itself compared to the right, pulses are intact distally Neurologic: responsive - To physical stimuli Skin: other - As above Lymphatic: no adenopathy Procedures Critical Care Time Critical Care Time 73 minutes for initial critical presentation, hypotensive presentation requiring acute intervention multiple re-evaluations not including any procedural time Medical Decision Making Diagnostic Impression: Primary Impression: Sepsis Additional Impressions: Cellulitis of hand Acute renal failure ER Course Differentials such as septic emboli need to be considered Other vascular pathology needs to be considered as well Patient initiated on IV hydration At this time further coverages defer to infectious disease Patient also has renal failure, and consideration for fluid boluses is made and patient requires less in the sepsis protocol in order not to place the patient into fluid overload Patient's blood pressure has also improved and requires further inpatient care Labs Test 05/17/18 00:35 05/17/18 02:30 White Blood Count 7.6 K/UL (4.8-10.8) Red Blood Count 4.58 M/UL (4.70-6.10) Hemoglobin 11.8 G/DL (14.2-18.0) Hematocrit 38.5 % (42.0-52.0) Mean Corpuscular Volume 84 FL (80-99) Mean Corpuscular Hemoglobin 25.7 PG (27.0-31.0) Mean Corpuscular Hemoglobin Concent 30.6 G/DL (32.0-36.0) Red Cell Distribution Width 13.9 % (11.6-14.8) Platelet Count 194 K/UL (150-450) Mean Platelet Volume 8.7 FL (6.5-10.1) Neutrophils (%) (Auto) 63.8 % (45.0-75.0) Lymphocytes (%) (Auto) 26.7 % (20.0-45.0) Monocytes (%) (Auto) 6.1 % (1.0-10.0) Eosinophils (%) (Auto) 2.7 % (0.0-3.0) Basophils (%) (Auto) 0.6 % (0.0-2.0) Prothrombin Time 10.2 SEC (9.30-11.50) Prothromb Time International Ratio 1.0 (0.9-1.1) Activated Partial Thromboplast Time 25 SEC (23-33) Urine Color Pale yellow Urine Appearance Slightly cloudy Urine pH 5 (4.5-8.0) Urine Specific [place] 1.020 (1.005-1.035) Urine Protein 2+ (NEGATIVE) Urine Glucose (UA) 3+ (NEGATIVE) Urine Ketones Negative (NEGATIVE) Urine Blood Negative (NEGATIVE) Urine Nitrite Negative (NEGATIVE) Urine Bilirubin Negative (NEGATIVE) Urine Urobilinogen Normal MG/DL (0.0-1.0) Urine Leukocyte Esterase 1+ (NEGATIVE) Urine RBC 0-2 /HPF (0 - 0) Urine WBC 2-4 /HPF (0 - 0) Urine Squamous Epithelial Cells Few /LPF (NONE/OCC) Urine Calcium Oxalate Crystals Few /LPF (NONE) Urine Amorphous Sediment Moderate /LPF (NONE) Urine Bacteria Few /HPF (NONE) Urine Coarse Granular Casts 0-2 /LPF (NONE) Lactic Acid Level 1.40 mmol/L (0.4-2.0) Sodium Level 149 MMOL/L (136-145) Potassium Level 6.4 MMOL/L (3.5-5.1) Chloride Level 114 MMOL/L (98-107) Carbon Dioxide Level 20 MMOL/L (21-32) Anion Gap 15 mmol/L (5-15) Blood Urea Nitrogen 132 mg/dL (7-18) Creatinine 6.5 MG/DL (0.55-1.30) Estimat Glomerular Filtration Rate 8.8 mL/min (>60) Glucose Level 132 MG/DL (74-106) Calcium Level 9.6 MG/DL (8.5-10.1) Total Bilirubin 0.2 MG/DL (0.2-1.0) Aspartate Amino Transf (AST/SGOT) 11 U/L (15-37) Alanine Aminotransferase (ALT/SGPT) < 6 U/L (12-78) Alkaline Phosphatase 72 U/L (46-116) Total Creatine Kinase 441 U/L (26-308) Creatine Kinase MB 2.0 NG/ML (0.0-3.6) Creatine Kinase MB Relative Index 0.4 Troponin I 0.000 ng/mL (0.000-0.056) Pro-B-Type Natriuretic Peptide 324 pg/mL (0-125) Total Protein 9.0 G/DL (6.4-8.2) Albumin 4.1 G/DL (3.4-5.0) Globulin 4.9 g/dL Albumin/Globulin Ratio 0.8 (1.0-2.7) Lipase 247 U/L (73-393) Rhythm Strip Diag. Results EP Interpretation: yes Rate: 80 Rhythm: NSR, no PVC's, no ectopy Chest X-Ray Diagnostic Results Chest X-Ray Diagnostic Results : Chest X-Ray Ordered: Yes # of Views/Limited/Complete: 1 View Indication: Chest Pain EP Interpretation: Yes Interpretation: no pneumothorax, other - Bilateral pulmonary congestion atelectasis, sternotomy wires, cardiomegaly Impression: Other - Pulmonary congestion Other X-Ray Diagnostic Results Other X-Ray Diagnostic Results #1: X-Ray ordered: Left hand # of Views/Limited Vs Complete: 4 View Indication: Pain EP Interpretation: Yes Interpretation: no dislocation, no fractures, other - Some soft tissue swelling, osteopenia Impression: Other - Soft tissue changes Electronically Signed by: Skylar Antoine DO Other X-Ray Diagnostic Results #2: X-Ray ordered: Left forearm # of Views/Limited Vs Complete: 2 View Indication: Pain EP Interpretation: Yes Interpretation: no dislocation, no soft tissue swelling, no fractures Impression: No acute disease Electronically Signed by: Skylar Antoine DO Last Vital Signs Date Time Temp Pulse Resp B/P (MAP) Pulse Ox O2 Delivery O2 Flow Rate FiO2 05/16/18 23:50 97.5 95 14 90/59 94 Room Air Status: improved Disposition: ADMITTED INPATIENT Condition: Serious Skylar Antoine DO May 17, 2018 00:17
[2018-05-17] MEDS ORDERED: GABAPENTIN800 MG ORAL (00:24)
[2018-05-17] MEDS ORDERED: QUETIAPINE FUMA25 MG ORAL (00:24)
[2018-05-17] MEDS ORDERED: KEPPRA LIQ100 MG/1 M ORAL (00:24)
[2018-05-17] MEDS ORDERED: KLONOPIN1 MG ORAL (00:24)
[2018-05-17 00:58] LABS: BASOPHILS % (AUTO) 0.6 % (0.0-2.0); EOSINOPHILS % (AUTO) 2.7 % (0.0-3.0); HEMATOCRIT 38.5 % (42.0-52.0); HEMOGLOBIN 11.8 G/DL (14.2-18.0); LYMPHOCYTES % (AUTO) 26.7 % (20.0-45.0); MEAN CORPUSCULAR VOLUME 84 FL (80-99); MONOCYTES % (AUTO) 6.1 % (1.0-10.0); NEUTROPHILS % (AUTO) 63.8 % (45.0-75.0); PLATELET COUNT 194 K/UL (150-450); RED BLOOD COUNT 4.58 M/UL (4.70-6.10); RED CELL DISTRIBUTION WIDTH 13.9 % (11.6-14.8); WHITE BLOOD COUNT 7.6 K/UL (4.8-10.8)
[2018-05-17 01:01] LABS: APPEARANCE,URINE SLIGHTLY CLOUDY; BILIRUBIN, URINE NEGATIVE (NEGATIVE); COLOR,URINE PALE YELLOW; GLUCOSE, URINE (UA) 3+ (NEGATIVE); KETONES,URINE NEGATIVE (NEGATIVE); LEUKOCYTE ESTERASE ,URINE 1+ (NEGATIVE); NITRITE,URINE NEGATIVE (NEGATIVE); PH,URINE 5 (4.5-8.0); PROTEIN,URINE 2+ (NEGATIVE); UROBILINOGEN,URINE NORMAL MG/DL (0.0-1.0)
[2018-05-17 03:06] LABS: ALANINE AMINOTRANSFERASE < 6 U/L (12-78); ALBUMIN 4.1 G/DL (3.4-5.0); ALBUMIN/GLOBULIN RATIO 0.8 (1.0-2.7); ALKALINE PHOSPHATASE 72 U/L (46-116); ANION GAP 15 mmol/L (5-15); ASPARTATE AMINO TRANSFERASE 11 U/L (15-37); BILIRUBIN,TOTAL 0.2 MG/DL (0.2-1.0); BLOOD UREA NITROGEN 132 mg/dL (7-18); CALCIUM 9.6 MG/DL (8.5-10.1); CARBON DIOXIDE 20 MMOL/L (21-32); CHLORIDE 114 MMOL/L (98-107); CREATINE KINASE 441 U/L (26-308); CREATININE 6.5 MG/DL (0.55-1.30); SODIUM 149 MMOL/L (136-145)
[2018-05-17 03:17] LABS: POTASSIUM 6.4 MMOL/L (3.5-5.1)
[2018-05-17] MEDS ORDERED: Insulin Human Regular 100units/ml 3ml IV ONE (04:00)
[2018-05-17] MEDS ORDERED: Norco 5mg/325mg tab ORAL PRN (07:30)
[2018-05-17] MEDS: Docusate 100mg cap ORAL SCH ×2 (08:25→17:52)
[2018-05-17] MEDS: Nephrovite tab (Rena-Vite) ORAL SCH (08:25)
[2018-05-17] MEDS: Metoprolol Tartrate 50mg tab ORAL SCH ×2 (08:25→20:28)
[2018-05-17] MEDS: Aspirin EC 81mg tab ORAL SCH (08:25)
[2018-05-17] MEDS: Heparin 5000 units/ml inj SUBQ SCH ×2 (08:27→20:52)
[2018-05-17] MEDS ORDERED: levETIRAcetam 500mg/5ml Liquid ORAL SCH (09:00)
[2018-05-17] MEDS ORDERED: Lisinopril 20mg tab ORAL SCH (09:00)
[2018-05-17] MEDS ORDERED: Vancomycin 1.5 GM/D5W 250ML IVPB ONE (09:00)
[2018-05-17] MEDS: Levemir Flexpen SUBQ SCH ×2 (09:11→21:09)
[2018-05-17] MEDS ORDERED: NovoLOG Insulin Flexpen SUBQ SCH (11:30)
[2018-05-17] MEDS: NovoLOG Insulin Flexpen SUBQ SCH ×3 (11:33→20:31)
[2018-05-17] MEDS ORDERED: Cephalexin 500mg cap ORAL SCH (12:00)
--- NOTE | 2018-05-17 12:09 | Diagnostic Imaging Report ---
Indications: Pain, trauma Technique: Two views of the left forearm Comparison: None Findings: No acute fractures. No dislocations. No radiopaque foreign body demonstrated. Impression: Negative
--- NOTE | 2018-05-17 12:14 | Diagnostic Imaging Report ---
Indication: Chest pain Technique: One view of the chest Comparison: 03/01/2017 Findings: Inspiration is suboptimal. There is bilateral perihilar and basilar atelectasis versus scarring. Lungs and pleural spaces are otherwise clear. Heart size is normal. There is evidence of prior median sternotomy Impression: Bilateral perihilar and basilar atelectasis and/or scarring. No acute process otherwise
--- NOTE | 2018-05-17 12:48 | Diagnostic Imaging Report ---
Clinical Indication: Hand pain, trauma Technique: 3 views of the left wrist Comparison: None Findings: Positioning is suboptimal-per technologist, patient unable to position properly. No acute fractures. No dislocations. Impression: No acute process
--- NOTE | 2018-05-17 16:12 | Diagnostic Imaging Report ---
Indication: Acute renal failure Technique: Grayscale and duplex images of the kidneys, retroperitoneum, and bladder were obtained. Comparison: Reference made to abdominal ultrasound 06/10/2016 Findings: Right kidney measures 11.4 cm in length. Left kidney measures 11.8 cm in length. Both kidneys demonstrate normal echogenicity. No hydronephrosis. Both kidneys demonstrate cysts. Echogenic focus in the left lower pole is probably a parenchymal calcification.. Normal inferior vena cava. Bladder is nearly empty, contains a Santos catheter. Impression: Negative for hydronephrosis Incidental finding bilateral renal cysts Nearly empty bladder with a Santos catheter.
[2018-05-17 16:41] LABS: ANION GAP 14 mmol/L (5-15); BLOOD UREA NITROGEN 132 mg/dL (7-18); CALCIUM 8.9 MG/DL (8.5-10.1); CARBON DIOXIDE 21 MMOL/L (21-32); CHLORIDE 116 MMOL/L (98-107); CREATININE 5.6 MG/DL (0.55-1.30); POTASSIUM 5.7 MMOL/L (3.5-5.1); SODIUM 151 MMOL/L (136-145)
--- NOTE | 2018-05-17 18:00 | Consultation ---
DATE OF CONSULTATION: 05/17/2018 NEPHROLOGY CONSULTATION: CONSULTING PHYSICIAN: Ed Sahu M.D. REFERRING PHYSICIAN: Raul Del Cid M.D. REASON FOR CONSULTATION: Elevated BUN and creatinine. HISTORY OF PRESENT ILLNESS: The patient is a 57-year-old man with a history of traumatic brain syndrome and diabetes presented with altered mental status. He cannot give a history and he is very lethargic with high BUN and creatinine on admission. PAST SURGERIES: Craniotomy and amputation of fingers. ALLERGIES: None known. REVIEW OF SYSTEMS: The patient is unable. MEDICATIONS: Prior to admission medications include Tylenol, amino acids, aspirin, cephalexin, clonazepam, DSS, doxycycline, Epogen, fish oil, gabapentin, gemfibrozil, [place], insulin, Levemir, Keppra, lisinopril, multivitamins, Seroquel, senna, and vancomycin. PHYSICAL EXAMINATION: GENERAL: The patient is lying in bed. He is nonverbal. Eyes are closed. He refuses to open his mouth. VITAL SIGNS: Temperature 97.7 axillary, pulse 104, respirations 18, and blood pressure 96/68. HEAD, EYES, EARS, NOSE, AND THROAT: His lips appear to be dry. Eyes and mouth are closed. NECK: No adenopathy. LUNGS: Clear. HEART: Regular rhythm. No murmur. ABDOMEN: Soft without organomegaly. GENITOURINARY: Penis and testes normal. Santos catheter is in place. EXTREMITIES: No edema, cyanosis, or clubbing. NEUROLOGIC: The patient is obtunded. When the eyes are open, they tend to deviate downward. He appears to have quadriplegia. He is not arousable. PERTINENT LABORATORY DATA: White count 7.5 and hemoglobin is 11.8. Sodium 149, potassium 6.4, repeat 5.6, chloride 114, CO2 20, BUN 132, creatinine 6.5, and glucose 132. Lactic acid 1.4. CK total 441. Troponin 0.00. Albumin is 4.1. Urinalysis shows 0 to 2 casts, 2 to 4 white cells, 0 to 2 red cells, 2+ protein, and 3+ glucose. Chest x-ray negative. IMPRESSION: 1. Acute kidney injury. Prior creatinine less than 1.5, likely dehydration versus urinary retention or both. 2. History of traumatic brain injury. 3. Diabetes. 4. Obtundation. PLAN: 1. Vigorous hydration. 2. Monitor renal function. 3. Keep him NPO until he is able to swallow. Ed Sahu M.D. DR: SELWYN JOB#: [id number] CC:
[2018-05-17] MEDS: Sennosides 8.6mg tab ORAL SCH (20:50)
[2018-05-17] MEDS: levETIRAcetam 500mg/NS100ml 100 ML IVPB SCH (20:50)
[2018-05-17] MEDS ORDERED: Epogen (for non ESRD use) SUBQ SCH ×2 (21:00)
[2018-05-17] MEDS: D5 1/2NS 1,000 ML IV SCH (21:37)
--- NOTE | 2018-05-17 23:15 | History and Physical Report ---
DATE OF ADMISSION: 05/17/2018 REASON FOR ADMISSION: Acute renal failure. HISTORY OF PRESENT ILLNESS: This is a 57-year-old male, who resides at a senior living facility and has a history of traumatic brain syndrome as well as underlying diabetes mellitus. He was noted to be increasingly lethargic over the past day at the retirement. I was also contacted because of worsening redness, swelling, and pain of his left hand. He was sent to the emergency room. There, he was noted to have signs of a skin infection and lab abnormalities consistent with acute renal failure. PAST MEDICAL HISTORY: Head trauma with craniotomy, peripheral artery disease with amputations of some digits, insulin-requiring diabetes mellitus, seizure disorder, chronic kidney disease, hyperlipidemia, hypertension, diabetic neuropathy, diabetic microangiopathy, and affective disorder with agitation. ALLERGIES: None. MEDICATIONS: Prior to admission, reviewed and reconciled. FAMILY HISTORY: Not known. SOCIAL HISTORY: Presently not obtainable. REVIEW OF SYSTEMS: Not obtainable from the patient. Pertinent data from prior records is outlined above. PHYSICAL EXAMINATION: VITAL SIGNS: Afebrile. Blood pressure 96/68, pulse 104, and respirations 18. GENERAL: Nonverbal but withdrawn and lethargic. HEENT: Conjunctivae pink. Oropharynx clear. Mucous membranes dry. NECK: Supple. Jugular venous pressure normal. LUNGS: Clear. CARDIAC: Regular rhythm and rate. Normal S1, S2. No murmur, rub, or gallop. ABDOMEN: Soft, nontender. Asntos catheter is placed. GENITALIA: Normal. EXTREMITIES: No clubbing, cyanosis, or edema. NEUROLOGIC: Reveals him to be obtunded but arousable with functional quadriplegia. SKIN: Reveals warmth and redness of the left hand and tenderness to touch. LABORATORY DATA: White count 7.5, hemoglobin 11.8. Sodium 149, potassium 6.4, chloride 114, bicarb 20, BUN 132, and creatinine 6.5. Glucose 132. Lactic acid 1.4. Troponin 0. Albumin 4.1. Urinalysis with 3+ glucose, 2+ protein. Chest x-ray with no acute process. IMPRESSION: 1. Cellulitis, left hand. 2. Acute renal failure. 3. Hyperkalemia. 4. History of traumatic brain injury. 5. Metabolic encephalopathy on top of underlying baseline encephalopathy. 6. Insulin-requiring diabetes mellitus with complications as outlined above. PLAN: 1. Santos catheter. 2. Renal ultrasound. 3. Aggressive hydration. 4. Kayexalate if potassium does not respond to IV fluids. 5. Cardiac monitoring. 6. Monitor volume status, cardiorenal function. 7. Empiric antibiotics. 8. Skin care. 9. DVT prophylaxis. 10. Insulin by sliding scale. 11. NPO until mental status improves. 12. Antiseizure therapy without change. Morales Serrano M.D. DR: AVERY JOB#: [id number] CC:
[2018-05-18] VITALS: BP 91/57
[2018-05-18] MEDS: D5 1/2NS 1,000 ML IV SCH ×5 (01:25→23:25)
[2018-05-18 04:00] VITALS: BP 97/66
[2018-05-18] MEDS: NovoLOG Insulin Flexpen SUBQ SCH ×4 (05:36→20:27)
[2018-05-18 06:07] LABS: ALANINE AMINOTRANSFERASE 11 U/L (12-78); ALBUMIN 3.5 G/DL (3.4-5.0); ALBUMIN/GLOBULIN RATIO 0.8 (1.0-2.7); ALKALINE PHOSPHATASE 66 U/L (46-116); ANION GAP 13 mmol/L (5-15); ASPARTATE AMINO TRANSFERASE 8 U/L (15-37); BILIRUBIN,TOTAL 0.2 MG/DL (0.2-1.0); BLOOD UREA NITROGEN 115 mg/dL (7-18); CARBON DIOXIDE 19 MMOL/L (21-32); CHLORIDE 114 MMOL/L (98-107); CREATINE KINASE 413 U/L (26-308); CREATININE 4.8 MG/DL (0.55-1.30); POTASSIUM 5.3 MMOL/L (3.5-5.1); SODIUM 146 MMOL/L (136-145)
[2018-05-18 08:00] VITALS: BP 100/62
[2018-05-18] MEDS: levETIRAcetam 500mg/NS100ml 100 ML IVPB SCH ×2 (08:33→20:24)
[2018-05-18] MEDS: Metoprolol Tartrate 50mg tab ORAL SCH ×2 (08:38→20:25)
[2018-05-18] MEDS: Aspirin EC 81mg tab ORAL SCH (08:38)
[2018-05-18] MEDS: Nephrovite tab (Rena-Vite) ORAL SCH (08:38)
[2018-05-18] MEDS: Docusate 100mg cap ORAL SCH ×2 (08:38→17:19)
[2018-05-18] MEDS: Heparin 5000 units/ml inj SUBQ SCH ×2 (08:40→20:27)
--- NOTE | 2018-05-18 11:26 | Nephrology Progress Note ---
Assessment/Plan Problem List: (1) Dehydration (2) Rhabdomyolysis (3) Encephalopathy (4) Acute renal failure Plan continue iv fluids, trend lab Subjective ROS Limited/Unobtainable: Yes Objective Objective Last 24 Hour Vital Signs Date Time Temp Pulse Resp B/P (MAP) Pulse Ox O2 Delivery O2 Flow Rate FiO2 05/18/18 08:38 72 100/62 05/18/18 08:00 82 05/18/18 08:00 Room Air 05/18/18 08:00 97.7 87 16 100/62 (75) 97 05/18/18 04:00 97.7 80 20 97/66 (76) 98 05/18/18 04:00 Room Air 05/18/18 04:00 90 05/18/18 00:00 Room Air 05/18/18 00:00 97.9 87 20 91/57 (68) 95 05/18/18 00:00 103 05/17/18 20:28 77 90/62 05/17/18 20:00 97.5 77 18 90/62 (71) 94 05/17/18 20:00 88 05/17/18 20:00 Room Air 05/17/18 16:00 Room Air 05/17/18 16:00 97.5 86 24 93/58 (70) 95 05/17/18 12:01 87 05/17/18 12:00 Room Air 05/17/18 12:00 97.7 104 18 96/68 (77) 94 05/17/18 11:30 Room Air Intake and Output 05/17/18 05/18/18 19:00 07:00 Intake Total 1209.99 ml 1720 ml Output Total 750 ml 1000 ml Balance 459.99 ml 720 ml Intake IV Total 1209.99 ml 1720 ml Output Urine Total 750 ml 1000 ml Laboratory Tests 05/17/18 15:18: Sodium Level 151H, Potassium Level 5.7H, Chloride Level 116H, Carbon Dioxide Level 21, Anion Gap 14, Blood Urea Nitrogen 132H, Creatinine 5.6H, Estimat Glomerular Filtration Rate 10.5, Glucose Level 107H, Uric Acid 8.6H, Calcium Level 8.9 05/18/18 04:40: Sodium Level 146H, Potassium Level 5.3H, Chloride Level 114H, Carbon Dioxide Level 19L, Anion Gap 13, Blood Urea Nitrogen 115H, Creatinine 4.8H, Estimat Glomerular Filtration Rate 12.5, Glucose Level 220#H, Calcium Level 9.0, Total Bilirubin 0.2, Aspartate Amino Transf (AST/SGOT) 8L, Alanine Aminotransferase ( ALT/SGPT) 11L, Alkaline Phosphatase 66, Total Creatine Kinase 413H, Total Protein 7.9, Albumin 3.5, Globulin 4.4, Albumin/Globulin Ratio 0.8L Height (Feet): 5 Height (Inches): 7.00 Weight (Pounds): 179 General Appearance: no apparent distress, lethargic EENT: normal ENT inspection Cardiovascular: normal rate Respiratory/Chest: lungs clear Abdomen: non tender, soft Extremities: non-tender Neurologic: motor weakness Ed Sahu MD May 18, 2018 11:26
[2018-05-18 12:00] VITALS: BP_SYST 128; BP_SYST 99; BP_DIAS 64; BP_DIAS 76
[2018-05-18 16:00] VITALS: BP 106/66
[2018-05-18] MEDS ORDERED: D5 1/2NS 1000ml IV ONE ×2 (16:26→16:28)
[2018-05-18] MEDS ORDERED: Tubing IV Secondary IV ONE (16:26)
[2018-05-18] MEDS ORDERED: 1/2 NS 1000ml IV ONE (16:26)
[2018-05-18 20:00] VITALS: BP 112/74
[2018-05-18] MEDS: Sennosides 8.6mg tab ORAL SCH (20:24)
[2018-05-19] VITALS: BP 121/89
--- NOTE | 2018-05-19 01:00 | Progress Note ---
DATE: 05/18/2018 SUBJECTIVE: The patient is awake and alert, but lethargic at times. OBJECTIVE: VITAL SIGNS: Blood pressure 100/63, pulse 72, and respirations 18. NECK: Supple. LUNGS: Clear. CARDIAC: Regular. Normal S1 and S2. ABDOMEN: Soft and nontender. EXTREMITIES: No edema. LABORATORY DATA: Notable for sodium 146, potassium 5.3, chloride 114, bicarbonate 19, BUN 115, and creatinine 4.8. CK 413. Albumin is 3.5. IMPRESSION: 1. Metabolic encephalopathy. 2. Acute renal failure. 3. Dehydration. 4. Hypernatremia. 5. Hyperkalemia. 6. Hyperchloremia. 7. Metabolic acidosis. 8. History of head trauma with chronic encephalopathy. 9. Diabetes mellitus with hyperglycemia. PLAN: 1. Continue hypotonic IV fluid hydration. 2. Swallow evaluation. 3. Nutritional support to follow. 4. Insulin coverage by sliding scale. 5. Decrease beta-michelle dosing and gabapentin has already been decreased. 6. Continue anti-seizure therapy. Fredy Leslie JOB#: [id number] CC:
[2018-05-19 04:00] VITALS: BP 128/77
[2018-05-19 04:29] LABS: BASOPHILS % (AUTO) 0.6 % (0.0-2.0); HEMATOCRIT 32.2 % (42.0-52.0); HEMOGLOBIN 10.2 G/DL (14.2-18.0); LYMPHOCYTES % (AUTO) 26.4 % (20.0-45.0); MEAN CORPUSCULAR VOLUME 83 FL (80-99); MONOCYTES % (AUTO) 6.8 % (1.0-10.0); NEUTROPHILS % (AUTO) 62.2 % (45.0-75.0); PLATELET COUNT 143 K/UL (150-450); RED BLOOD COUNT 3.86 M/UL (4.70-6.10); RED CELL DISTRIBUTION WIDTH 13.5 % (11.6-14.8)
[2018-05-19 04:45] LABS: ALANINE AMINOTRANSFERASE 13 U/L (12-78); ALBUMIN 3.5 G/DL (3.4-5.0); ALBUMIN/GLOBULIN RATIO 0.8 (1.0-2.7); ALKALINE PHOSPHATASE 67 U/L (46-116); ANION GAP 11 mmol/L (5-15); ASPARTATE AMINO TRANSFERASE 10 U/L (15-37); BILIRUBIN,TOTAL 0.2 MG/DL (0.2-1.0); BLOOD UREA NITROGEN 69 mg/dL (7-18); CARBON DIOXIDE 21 MMOL/L (21-32); CHLORIDE 114 MMOL/L (98-107); CREATININE 2.4 MG/DL (0.55-1.30); POTASSIUM 4.4 MMOL/L (3.5-5.1); SODIUM 146 MMOL/L (136-145)
[2018-05-19 04:48] LABS: CREATINE KINASE 509 U/L (26-308)
[2018-05-19] MEDS: D5 1/2NS 1,000 ML IV SCH ×5 (04:57→21:36)
[2018-05-19] MEDS: NovoLOG Insulin Flexpen SUBQ SCH ×4 (05:44→20:59)
[2018-05-19] MEDS ORDERED: D5 1/2NS 1,000 ML IV SCH (06:30)
[2018-05-19] MEDS ORDERED: NovoLOG Insulin Flexpen SUBQ SCH (06:30)
[2018-05-19] MEDS ORDERED: Vancomycin 1250mg/D5W 250ml IVPB ONE ×2 (07:00→10:30)
[2018-05-19] MEDS ORDERED: Norco 5mg/325mg tab ORAL PRN ×2 (07:30)
[2018-05-19 08:00] VITALS: BP 115/82
[2018-05-19] MEDS ORDERED: Heparin 5000 units/ml inj SUBQ SCH ×2 (09:00)
[2018-05-19] MEDS ORDERED: Aspirin EC 81mg tab ORAL SCH (09:00)
[2018-05-19] MEDS ORDERED: levETIRAcetam 500mg/NS100ml 100 ML IVPB SCH (09:00)
[2018-05-19] MEDS ORDERED: Metoprolol Tartrate 50mg tab ORAL SCH (09:00)
[2018-05-19] MEDS ORDERED: Nephrovite tab (Rena-Vite) ORAL SCH (09:00)
[2018-05-19] MEDS ORDERED: Docusate 100mg cap ORAL SCH (09:00)
[2018-05-19] MEDS: Docusate 100mg cap ORAL SCH ×2 (09:21→17:31)
[2018-05-19] MEDS: levETIRAcetam 500mg/NS100ml 100 ML IVPB SCH ×2 (09:21→20:55)
[2018-05-19] MEDS: Nephrovite tab (Rena-Vite) ORAL SCH (09:22)
[2018-05-19] MEDS: Aspirin EC 81mg tab ORAL SCH (09:22)
[2018-05-19] MEDS: Metoprolol Tartrate 50mg tab ORAL SCH ×2 (09:25→20:54)
[2018-05-19 12:00] VITALS: BP 136/94
--- NOTE | 2018-05-19 14:15 | Cardiology Report ---
APPROVED REPORT EKG Measurement Heart [id number] Normal sinus rhythm Nonspecific T wave abnormality Abnormal ECG
[2018-05-19 16:00] VITALS: BP 114/82
--- NOTE | 2018-05-19 17:03 | Nephrology Progress Note ---
Assessment/Plan Problem List: (1) Dehydration (2) Rhabdomyolysis (3) Encephalopathy (4) Acute renal failure Plan continue iv fluids, trend lab improving Subjective ROS Limited/Unobtainable: Yes Objective Objective Last 24 Hour Vital Signs Date Time Temp Pulse Resp B/P (MAP) Pulse Ox O2 Delivery O2 Flow Rate FiO2 05/19/18 12:00 98.2 80 20 136/94 (108) 97 05/19/18 12:00 78 05/19/18 09:25 92 126/85 05/19/18 09:00 Room Air 05/19/18 08:00 98.2 97 20 115/82 (93) 97 05/19/18 08:00 93 05/19/18 04:00 84 05/19/18 04:00 97.2 82 18 128/77 (94) 96 05/19/18 04:00 Room Air 05/19/18 00:00 Room Air 05/19/18 00:00 80 05/19/18 00:00 97.9 71 16 121/89 (100) 97 05/18/18 20:25 71 112/74 05/18/18 20:00 84 05/18/18 20:00 Room Air 05/18/18 20:00 98.1 71 18 112/74 (87) 98 Intake and Output 05/18/18 05/19/18 19:00 07:00 Intake Total 2250 ml 1795 ml Output Total 2450 ml 1800 ml Balance -200 ml -5 ml Intake Oral 150 ml IV Total 2100 ml 1795 ml Output Urine Total 2450 ml 1800 ml Laboratory Tests 05/19/18 04:00: White Blood Count 5.0, Red Blood Count 3.86L, Hemoglobin 10.2L, Hematocrit 32.2L , Mean Corpuscular Volume 83, Mean Corpuscular Hemoglobin 26.3L, Mean Corpuscular Hemoglobin Concent 31.6L, Red Cell Distribution Width 13.5, Platelet Count 143L, Mean Platelet Volume 7.9, Neutrophils (%) (Auto) 62.2, Lymphocytes (%) (Auto) 26.4, Monocytes (%) (Auto) 6.8, Eosinophils (%) (Auto) 4.0H, Basophils (%) (Auto) 0.6, Sodium Level 146H, Potassium Level 4.4, Chloride Level 114H, Carbon Dioxide Level 21, Anion Gap 11, Blood Urea Nitrogen 69H, Creatinine 2.4H, Estimat Glomerular Filtration Rate 27.8, Glucose Level 187H, Calcium Level 9.0, Phosphorus Level 3.0, Magnesium Level 2.1, Total Bilirubin 0.2, Aspartate Amino Transf (AST/SGOT) 10L, Alanine Aminotransferase ( ALT/SGPT) 13, Alkaline Phosphatase 67, Total Creatine Kinase 509H, Pro-B-Type Natriuretic Peptide 248H, Total Protein 7.8, Albumin 3.5, Globulin 4.3, Albumin/ Globulin Ratio 0.8L, Random Vancomycin Level 9.0 Height (Feet): 5 Height (Inches): 7.00 Weight (Pounds): 179 General Appearance: alert, confused EENT: normal ENT inspection Neck: normal alignment Cardiovascular: normal rate, regular rhythm Respiratory/Chest: lungs clear Abdomen: non tender, soft Ed Sahu MD May 19, 2018 17:03
[2018-05-19 20:00] VITALS: BP 106/67
[2018-05-19] MEDS: Sennosides 8.6mg tab ORAL SCH (20:55)
[2018-05-19] MEDS ORDERED: Sennosides 8.6mg tab ORAL SCH (21:00)
[2018-05-20] VITALS: BP 125/86
--- NOTE | 2018-05-20 03:45 | Progress Note ---
DATE: 05/19/2018 CARDIOLOGY AND INTERNAL MEDICINE PROGRESS NOTE SUBJECTIVE: The patient remains on IV fluids. He is more alert and interactive. Oral intake is slightly better. Cultures remain negative. OBJECTIVE: VITAL SIGNS: Blood pressure 106/67, pulse 96, respiratory rate 18, and afebrile. HEENT: Mucous membranes still dry. NECK: Supple. LUNGS: Clear. CARDIAC: Regular rhythm and rate. Normal S1, S2 with a fourth heart sound. ABDOMEN: Soft. EXTREMITIES: With no edema. Left hand erythema has resolved, tenderness decreased, no swelling, and amputated digit sites are healed with no secondary breakdown. LABORATORY DATA: Sodium 146, potassium 4.4, chloride 114, BUN 69, creatinine 2.4. IMPRESSION: 1. Cellulitis, resolving. 2. Severe dehydration and hypernatremia, improving. 3. Acute renal failure is improving significantly. 4. Rhabdomyolysis, unchanged. 5. Chronic diastolic congestive heart failure. 6. Hypertensive heart disease. 7. Insulin-requiring diabetes mellitus with neuropathy. 8. Metabolic encephalopathy. PLAN: 1. Continue hypotonic IV fluids. 2. Encourage oral intake. 3. Skin care. 4. Maintain vancomycin for 5 days total. Morales Serrano M.D. DR: Evelia JOB#: [id number] CC:
[2018-05-20 04:00] VITALS: BP 101/75
[2018-05-20] MEDS: D5 1/2NS 1,000 ML IV SCH ×3 (05:42→19:00)
[2018-05-20] MEDS: NovoLOG Insulin Flexpen SUBQ SCH ×4 (05:43→21:00)
[2018-05-20 07:40] LABS: ANION GAP 12 mmol/L (5-15); BLOOD UREA NITROGEN 37 mg/dL (7-18); CALCIUM 9.1 MG/DL (8.5-10.1); CARBON DIOXIDE 20 MMOL/L (21-32); CHLORIDE 113 MMOL/L (98-107); CREATININE 1.7 MG/DL (0.55-1.30); PHOSPHORUS 2.5 MG/DL (2.5-4.9); POTASSIUM 4.5 MMOL/L (3.5-5.1); SODIUM 145 MMOL/L (136-145)
[2018-05-20 07:59] LABS: CREATININE 1.7 MG/DL (0.55-1.30)
[2018-05-20 08:00] VITALS: BP 138/83
--- NOTE | 2018-05-20 08:04 | Nephrology Progress Note ---
Assessment/Plan Problem List: (1) Dehydration (2) Rhabdomyolysis (3) Encephalopathy (4) Acute renal failure (5) Hypophosphatemia Plan continue iv fluids, trend lab improving reduce iv rate, replace phos Subjective ROS Limited/Unobtainable: Yes Objective Objective Last 24 Hour Vital Signs Date Time Temp Pulse Resp B/P (MAP) Pulse Ox O2 Delivery O2 Flow Rate FiO2 05/20/18 04:00 69 05/20/18 04:00 97.3 72 21 101/75 (84) 97 05/20/18 00:00 72 05/20/18 00:00 97.3 89 20 125/86 (99) 97 05/19/18 20:54 88 114/82 05/19/18 20:00 97.8 96 18 106/67 (80) 98 05/19/18 16:00 88 05/19/18 16:00 98.0 89 21 114/82 (93) 97 05/19/18 12:00 98.2 80 20 136/94 (108) 97 05/19/18 12:00 78 05/19/18 09:25 92 126/85 05/19/18 09:00 Room Air Intake and Output 05/19/18 05/20/18 19:00 07:00 Intake Total 1853.334 ml Output Total 1100 ml 500 ml Balance 753.334 ml -500 ml Intake Oral 520 ml IV Total 1333.334 ml Output Urine Total 1100 ml 500 ml Laboratory Tests 05/20/18 06:35: Sodium Level 145, Potassium Level 4.5, Chloride Level 113H, Carbon Dioxide Level 20L, Anion Gap 12, Blood Urea Nitrogen 37H, Creatinine 1.7H, Estimat Glomerular Filtration Rate 41.5, Glucose Level 138H, Calcium Level 9.1, Phosphorus Level 2.5, Random Vancomycin Level 14.4 Height (Feet): 5 Height (Inches): 7.00 Weight (Pounds): 179 General Appearance: no apparent distress, alert, confused EENT: normal ENT inspection Neck: normal alignment, supple Cardiovascular: regular rhythm Respiratory/Chest: lungs clear Abdomen: non tender, soft Neurologic: front end specialist II-XII grossly normal, motor weakness Ed Sahu MD May 20, 2018 08:04
[2018-05-20] MEDS: Docusate 100mg cap ORAL SCH ×2 (09:07→18:00)
[2018-05-20] MEDS: Phospha 250 Neutral tab ORAL SCH ×3 (09:07→18:00)
[2018-05-20] MEDS: Aspirin EC 81mg tab ORAL SCH (09:07)
[2018-05-20] MEDS: levETIRAcetam 500mg/NS100ml 100 ML IVPB SCH ×2 (09:07→21:24)
[2018-05-20] MEDS: Nephrovite tab (Rena-Vite) ORAL SCH (09:08)
[2018-05-20] MEDS: Metoprolol Tartrate 50mg tab ORAL SCH ×2 (09:08→21:20)
[2018-05-20] MEDS ORDERED: D5 1/2NS 1000ml IV ONE (10:38)
[2018-05-20 12:00] VITALS: BP 134/95
--- NOTE | 2018-05-20 13:46 | General Progress Note ---
Assessment/Plan Problem List: (1) Hypovolemic shock ICD Codes: R57.1 - Hypovolemic shock SNOMED: 24948642 (2) Hypernatremia ICD Codes: E87.0 - Hyperosmolality and hypernatremia SNOMED: 58275405 (3) Pneumonia ICD Codes: J18.9 - Pneumonia, unspecified organism SNOMED: 107491301 (4) Acute renal failure ICD Codes: N17.9 - Acute kidney failure, unspecified SNOMED: 04713537 (5) Sepsis ICD Codes: A41.9 - Sepsis, unspecified organism SNOMED: 99224179 (6) Dehydration ICD Codes: E86.0 - Dehydration SNOMED: 95574021 (7) Encephalopathy ICD Codes: G93.40 - Encephalopathy, unspecified SNOMED: 07990408, 211051350 Status: stable, progressing Assessment/Plan cont ivf per renal monitor renal fxn abx per id follow up cultures antiplt rx dvt/stress ulcer Subjective ROS Limited/Unobtainable: No Constitutional: Reports: malaise, weakness HEENT: Reports: no symptoms Cardiovascular: Reports: no symptoms Respiratory: Reports: cough Gastrointestinal/Abdominal: Reports: no symptoms Genitourinary: Reports: no symptoms Neurologic/Psychiatric: Reports: pre-existing deficit Endocrine: Reports: no symptoms Hematologic/Lymphatic: Reports: no symptoms Allergies: Coded Allergies: No Known Allergies (Unverified , 05/16/18) All Systems: reviewed and negative except above Subjective no events. states hes "feeling better." no cp no sob renal fxn improving. Objective Last 24 Hour Vital Signs Date Time Temp Pulse Resp B/P (MAP) Pulse Ox O2 Delivery O2 Flow Rate FiO2 05/20/18 11:46 74 05/20/18 09:08 79 138/83 05/20/18 08:00 97.9 79 20 138/83 (101) 96 05/20/18 08:00 Room Air 05/20/18 07:48 84 05/20/18 04:00 69 05/20/18 04:00 97.3 72 21 101/75 (84) 97 05/20/18 00:00 72 05/20/18 00:00 97.3 89 20 125/86 (99) 97 05/19/18 20:54 88 114/82 05/19/18 20:00 97.8 96 18 106/67 (80) 98 05/19/18 16:00 88 05/19/18 16:00 98.0 89 21 114/82 (93) 97 Intake and Output 05/19/18 05/20/18 18:59 06:59 Intake Total 2053.334 ml Output Total 1100 ml 500 ml Balance 953.334 ml -500 ml Intake Oral 520 ml IV Total 1533.334 ml Output Urine Total 1100 ml 500 ml Laboratory Tests 05/20/18 06:35: Sodium Level 145, Potassium Level 4.5, Chloride Level 113H, Carbon Dioxide Level 20L, Anion Gap 12, Blood Urea Nitrogen 37H, Creatinine 1.7H, Estimat Glomerular Filtration Rate 41.5, Glucose Level 138H, Calcium Level 9.1, Phosphorus Level 2.5, Random Vancomycin Level 14.4 Height (Feet): 5 Height (Inches): 7.00 Weight (Pounds): 179 General Appearance: WD/WN, alert, confused Neck: supple Cardiovascular: normal rate, regular rhythm Respiratory/Chest: chest wall non-tender, lungs clear, normal breath sounds, no respiratory distress Abdomen: normal bowel sounds, non tender, soft, no organomegaly Edema: no edema noted Arm (L), no edema noted Arm (R), no edema noted Leg (L), no edema noted Leg (R), no edema noted Pedal (L), no edema noted Pedal (R), no edema noted Generalized Neurologic: alert, responsive, disoriented Raul Del Cid MD May 20, 2018 13:46
[2018-05-20 16:00] VITALS: BP 136/104
[2018-05-20 20:00] VITALS: BP 148/106
[2018-05-20] MEDS ORDERED: Epogen (for non ESRD use) SUBQ SCH ×3 (21:00)
[2018-05-20] MEDS: Sennosides 8.6mg tab ORAL SCH (21:21)
--- NOTE | 2018-05-20 23:00 | Discharge Summary ---
DATE OF ADMISSION: 05/17/2018 CARDIOLOGY PROGRESS NOTE SUBJECTIVE: The patient is more alert and interactive. Appetite remains poor. OBJECTIVE: VITAL SIGNS: Blood pressure 136/104, pulse 75, respiratory rate 20, afebrile. LUNGS: Clear. CARDIAC: Regular. Normal S1 and S2 with a fourth heart sound. ABDOMEN: Soft. EXTREMITIES: Trace edema. LABORATORY DATA: Reviewed. Notable for improved BUN of 37 and creatinine 1.7. Sodium 145. IMPRESSION: 1. Acute renal failure, resolving. 2. Dehydration, hypernatremia, and hypovolemia, resolving. 3. Anorexia, continuing. 4. Peripheral artery disease. 5. Type 2 diabetes mellitus. 6. Hypertensive heart disease. 7. Metabolic encephalopathy. 8. History of head trauma and chronic encephalopathy. 9. Metabolic acidosis. PLAN: 1. Adjust IV fluids, hypotonic fluids. 2. Encourage oral intake. 3. No resumption of FROILAN inhibitor or ARB therapy in this setting. 4. Replace electrolytes and phosphorus as well as magnesium as needed based on clinical parameters. 5. Discontinue cardiac monitoring. Fredy Leslie JOB#: [id number] CC:
[2018-05-21] VITALS: BP 149/110
[2018-05-21 04:00] VITALS: BP 147/102
[2018-05-21] MEDS: D5 1/2NS 1,000 ML IV SCH ×3 (04:54→09:24)
[2018-05-21] MEDS: NovoLOG Insulin Flexpen SUBQ SCH ×4 (06:28→21:00)
[2018-05-21] MEDS ORDERED: Norco 5mg/325mg tab ORAL PRN (07:30)
[2018-05-21 08:00] VITALS: BP 133/90
[2018-05-21 08:02] LABS: ALANINE AMINOTRANSFERASE 16 U/L (12-78); ALBUMIN 3.3 G/DL (3.4-5.0); ALBUMIN/GLOBULIN RATIO 0.7 (1.0-2.7); ALKALINE PHOSPHATASE 74 U/L (46-116); ANION GAP 12 mmol/L (5-15); ASPARTATE AMINO TRANSFERASE 15 U/L (15-37); BILIRUBIN,TOTAL 0.2 MG/DL (0.2-1.0); BLOOD UREA NITROGEN 23 mg/dL (7-18); CARBON DIOXIDE 19 MMOL/L (21-32); CHLORIDE 113 MMOL/L (98-107); CREATININE 1.4 MG/DL (0.55-1.30); PHOSPHORUS 2.5 MG/DL (2.5-4.9); POTASSIUM 4.1 MMOL/L (3.5-5.1); SODIUM 144 MMOL/L (136-145)
--- NOTE | 2018-05-21 08:19 | General Progress Note ---
Assessment/Plan Problem List: (1) Hypovolemic shock ICD Codes: R57.1 - Hypovolemic shock SNOMED: 48692665 (2) Hypernatremia ICD Codes: E87.0 - Hyperosmolality and hypernatremia SNOMED: 17401042 (3) Pneumonia ICD Codes: J18.9 - Pneumonia, unspecified organism SNOMED: 358386524 (4) Acute renal failure ICD Codes: N17.9 - Acute kidney failure, unspecified SNOMED: 22696350 (5) Sepsis ICD Codes: A41.9 - Sepsis, unspecified organism SNOMED: 29774766 (6) Dehydration ICD Codes: E86.0 - Dehydration SNOMED: 46566380 (7) Encephalopathy ICD Codes: G93.40 - Encephalopathy, unspecified SNOMED: 59910810, 356905300 Status: stable, progressing Assessment/Plan cont ivf per renal monitor renal fxn abx per id follow up cultures antiplt rx dvt/stress ulcer dc planning to snf Subjective ROS Limited/Unobtainable: Yes Constitutional: Reports: malaise, weakness HEENT: Reports: no symptoms Cardiovascular: Reports: no symptoms Respiratory: Reports: no symptoms Gastrointestinal/Abdominal: Reports: no symptoms Genitourinary: Reports: no symptoms Neurologic/Psychiatric: Reports: seizure Endocrine: Reports: no symptoms Hematologic/Lymphatic: Reports: anemia Allergies: Coded Allergies: No Known Allergies (Unverified , 05/16/18) All Systems: reviewed and negative except above Subjective no events. states hes "feeling better." no cp no sob renal fxn improving. no nausea or vomiting. taking pos. Objective Last 24 Hour Vital Signs Date Time Temp Pulse Resp B/P (MAP) Pulse Ox O2 Delivery O2 Flow Rate FiO2 05/21/18 04:00 68 05/21/18 04:00 97.3 75 18 147/102 (117) 97 05/21/18 00:00 98.2 74 20 149/110 (123) 96 05/20/18 21:20 76 136/104 05/20/18 20:00 98.2 73 20 148/106 (120) 97 05/20/18 20:00 76 05/20/18 16:00 98.3 75 20 136/104 (115) 98 05/20/18 15:44 71 05/20/18 12:00 98.1 70 19 134/95 (108) 96 05/20/18 11:46 74 05/20/18 09:08 79 138/83 Intake and Output 05/20/18 05/21/18 19:00 07:00 Intake Total 240 ml Output Total 1800 ml 600 ml Balance -1560 ml -600 ml Intake Oral 240 ml Output Urine Total 1800 ml 600 ml # Bowel Movements 1 Laboratory Tests 05/21/18 06:14: Sodium Level 144, Potassium Level 4.1, Chloride Level 113H, Carbon Dioxide Level 19L, Anion Gap 12, Blood Urea Nitrogen 23H, Creatinine 1.4H, Estimat Glomerular Filtration Rate 51.9, Glucose Level 151H, Calcium Level 9.0, Phosphorus Level 2.5, Total Bilirubin 0.2, Aspartate Amino Transf (AST/SGOT) 15 , Alanine Aminotransferase (ALT/SGPT) 16, Alkaline Phosphatase 74, Total Protein 8.2, Albumin 3.3L, Globulin 4.9, Albumin/Globulin Ratio 0.7L Height (Feet): 5 Height (Inches): 7.00 Weight (Pounds): 179 Objective General Appearance: WD/WN, alert, confused Neck: supple Cardiovascular: normal rate, regular rhythm Respiratory/Chest: chest wall non-tender, lungs clear, normal breath sounds, no respiratory distress Abdomen: normal bowel sounds, non tender, soft, no organomegaly Edema: no edema noted Arm (L), no edema noted Arm (R), no edema noted Leg (L), no edema noted Leg (R), no edema noted Pedal (L), no edema noted Pedal (R), no edema noted Generalized Neurologic: alert, responsive, disoriented Raul Del Cid MD May 21, 2018 08:19
[2018-05-21] MEDS ORDERED: levETIRAcetam 500mg/NS100ml 100 ML IVPB SCH (09:00)
[2018-05-21] MEDS: Aspirin EC 81mg tab ORAL SCH ×2 (09:21→10:06)
[2018-05-21] MEDS: Phospha 250 Neutral tab ORAL SCH ×4 (09:21→17:21)
[2018-05-21] MEDS: Docusate 100mg cap ORAL SCH ×3 (09:21→17:21)
[2018-05-21] MEDS: Metoprolol Tartrate 50mg tab ORAL SCH ×3 (09:21→21:00)
[2018-05-21] MEDS: Nephrovite tab (Rena-Vite) ORAL SCH ×2 (09:23→10:06)
--- NOTE | 2018-05-21 10:03 | Nephrology Progress Note ---
Assessment/Plan Problem List: (1) Dehydration (2) Rhabdomyolysis (3) Encephalopathy (4) Acute renal failure (5) Hypophosphatemia Plan discontinue iv fluids, trend lab improving , dc eisenberg, replace phos Subjective ROS Limited/Unobtainable: Yes Objective Objective Last 24 Hour Vital Signs Date Time Temp Pulse Resp B/P (MAP) Pulse Ox O2 Delivery O2 Flow Rate FiO2 05/21/18 09:21 89 133/90 05/21/18 08:00 97.6 89 18 133/90 (104) 96 05/21/18 04:00 68 05/21/18 04:00 97.3 75 18 147/102 (117) 97 05/21/18 00:00 98.2 74 20 149/110 (123) 96 05/20/18 21:20 76 136/104 05/20/18 20:00 98.2 73 20 148/106 (120) 97 05/20/18 20:00 76 05/20/18 16:00 98.3 75 20 136/104 (115) 98 05/20/18 15:44 71 05/20/18 12:00 98.1 70 19 134/95 (108) 96 05/20/18 11:46 74 Intake and Output 05/20/18 05/21/18 19:00 07:00 Intake Total 240 ml Output Total 1800 ml 600 ml Balance -1560 ml -600 ml Intake Oral 240 ml Output Urine Total 1800 ml 600 ml # Bowel Movements 1 Laboratory Tests 05/21/18 06:14: Sodium Level 144, Potassium Level 4.1, Chloride Level 113H, Carbon Dioxide Level 19L, Anion Gap 12, Blood Urea Nitrogen 23H, Creatinine 1.4H, Estimat Glomerular Filtration Rate 51.9, Glucose Level 151H, Calcium Level 9.0, Phosphorus Level 2.5, Total Bilirubin 0.2, Aspartate Amino Transf (AST/SGOT) 15 , Alanine Aminotransferase (ALT/SGPT) 16, Alkaline Phosphatase 74, Total Protein 8.2, Albumin 3.3L, Globulin 4.9, Albumin/Globulin Ratio 0.7L Height (Feet): 5 Height (Inches): 7.00 Weight (Pounds): 179 General Appearance: alert, confused EENT: normal ENT inspection Neck: normal alignment Cardiovascular: normal rate Respiratory/Chest: lungs clear Abdomen: non tender, soft Neurologic: motor weakness, disoriented Ed Sahu MD May 21, 2018 10:03
[2018-05-21 12:00] VITALS: BP 141/88
[2018-05-21 16:00] VITALS: BP 138/79
[2018-05-21 20:00] VITALS: BP 122/79
[2018-05-21] MEDS ORDERED: Sennosides 8.6mg tab ORAL SCH (21:00)
--- NOTE | 2018-05-21 22:30 | Progress Note ---
DATE: 05/21/2018 CARDIOLOGY PROGRESS NOTE SUBJECTIVE: The patient has no new distress. He is feeling better. He is taking p.o. OBJECTIVE: VITAL SIGNS: Blood pressure 141/88, pulse 79, and respirations 18. LUNGS: Clear. CARDIAC: Regular. ABDOMEN: Soft. EXTREMITIES: No edema. LABORATORY DATA: Sodium 144, potassium 4.1, BUN 23, creatinine 1.4. Bicarb 19, albumin 3.3. IMPRESSION: 1. Acute renal failure recovered. 2. Dehydration resolving. 3. Hyponatremia resolved. 4. Mild protein calorie malnutrition. 5. Peripheral artery disease. 6. Head trauma with encephalopathy. 7. Hypertensive heart disease with rising blood pressure trend. PLAN: 1. Encourage oral intake. 2. IV fluids discontinued. 3. Santos discontinued. 4. Discharge planning to follow. 5. Titrate antihypertensives. Morales Serrano M.D. DR: MARILYN JOB#: [id number] CC:
[2018-05-22] VITALS: BP 135/84
[2018-05-22 04:00] VITALS: BP 133/98
[2018-05-22] MEDS: NovoLOG Insulin Flexpen SUBQ SCH ×2 (06:30→11:30)
[2018-05-22 08:00] VITALS: BP 121/88
[2018-05-22] MEDS: Phospha 250 Neutral tab ORAL SCH ×2 (08:20→09:00)
[2018-05-22] MEDS: Aspirin EC 81mg tab ORAL SCH ×2 (08:20→08:33)
[2018-05-22] MEDS: Docusate 100mg cap ORAL SCH ×2 (08:21→08:33)
[2018-05-22] MEDS: Nephrovite tab (Rena-Vite) ORAL SCH ×2 (08:21→08:35)
[2018-05-22] MEDS: Metoprolol Tartrate 50mg tab ORAL SCH ×2 (08:24→08:34)
[2018-05-22] MEDS ORDERED: GABAPENTIN400 MG ORAL (09:52)
[2018-05-22] MEDS ORDERED: NORVASC2.5 MG ORAL (09:52)
[2018-05-22] MEDS ORDERED: D5 1/2NS 1000ml IV ONE (12:49)
--- NOTE | 2018-05-22 20:15 | Discharge Summary ---
DATE OF ADMISSION: 05/17/2018 DATE OF DISCHARGE: 05/22/2018 ADMISSION DIAGNOSES: 1. Toxic metabolic encephalopathy. 2. Sepsis. 3. Acute renal failure. 4. History of traumatic brain injury and encephalopathy. 5. Seizure disorder. 6. History of gangrene. DISCHARGE DIAGNOSES: 1. Toxic metabolic encephalopathy. 2. Sepsis. 3. Acute renal failure. 4. History of traumatic brain injury and encephalopathy. 5. Seizure disorder. 6. History of gangrene. HOSPITAL COURSE: The patient is a pleasant male, who was admitted from a alf facility. He was admitted with complaints of acute renal failure and possible sepsis. He was hydrated aggressively. He had a renal ultrasound that showed no evidence of any hydronephrosis. Renal and Cardiology consultations were obtained. renal management of the patient's renal function. Blood pressure with hydration alone. The patient's creatinine did improve. On discharge, he was stable to be discharged back to the alf facility. has been discontinued and to be followed up closely at alf facility. DISCHARGE MEDICATIONS: Please see discharge medication list for discharge medications. DIET: Diabetic, cardiac diet. ACTIVITY: Ad-felipe. FOLLOWUP: The patient to follow up in one to two days at alf facility. Raul Del Cid M.D. DR: MARY JOB#: [id number] CC:
[2018-05-22] MEDS ORDERED: Epogen (for non ESRD use) SUBQ SCH (21:00)
--- NOTE | 2018-05-23 01:30 | Progress Note ---
DATE: 05/22/2018 CARDIOLOGY PROGRESS NOTE SUBJECTIVE: Awake and alert. Tolerating diet. No nausea, vomiting, or abdominal pain. OBJECTIVE: VITAL SIGNS: Blood pressure 121/88, pulse 85, and respiratory rate 18. NECK: Supple. LUNGS: Clear. CARDIAC: Regular. Normal S1 and S2 with a fourth heart sound. ABDOMEN: Soft. EXTREMITIES: No edema. Baseline amputations. IMPRESSION: 1. Acute renal failure, resolved. 2. Dehydration. 3. Hypernatremia, corrected. 4. Peripheral artery disease, at baseline. 5. Hypertensive heart disease with slightly elevated blood pressure trend. PLAN: 1. Maintain adequate hydration orally . 2. Cautious titration of antihypertensives as an outpatient. 3. Avoid diuretics, ARBs, and FROILAN inhibitors in view of tendency for renal failure. Morales Serrano M.D. DR: RENATA JOB#: [id number] CC:
--- NOTE | 2018-05-23 13:26 | Cardiology Report ---
APPROVED REPORT EXAM: Two-dimensional and M-mode echocardiogram with Doppler and color Doppler. INDICATION Hypertension/HCVD M-Mode DIMENSIONS LVDd4.6 (3.5-5.6cm) PWd1.1 (0.7-1.1cm) IVSs1.4 cm LVDs3.1 (2.5-4.0cm) PWs1.4 cm Normal left ventricular chamber size, systolic function and wall motion to extent visualized. Left ventricular ejection fraction estimated to be 60 %. Mild left ventricular hypertrophy by 2-D. Anterior Echo-free space, may be due to pericardial fat or effusion. Mild left atrial enlargement. Right cardiac chamber sizes are within normal limits. Focal aortic valve sclerosis with reduced cusp excursion. Heavily thickened mitral valve leaflets with normal excursion. Mitral annulus and aortic root calcification. Pulmonic valve not well visualized. Normal tricuspid valve structure. IVC at normal size with physiologic collapse. A color flow and spectral Doppler study was performed and revealed: Trace aortic regurgitation. Peak aortic valve gradient of 25 mm Hg and a mean of 15 mmHg. Aortic valve area 1.7 cm2 calculated by continuity equation. Trace mitral regurgitation. Mitral diastolic velocities suggest reduced left ventricular relaxation c/w mild LV diastolic dysfunction (Grade I). Trace tricuspid regurgitation. Tricuspid systolic velocities suggests peak right ventricular systolic pressure of 15 mmHg.
--- NOTE | 2018-05-23 17:02 | Diagnostic Imaging Report ---
APPROVED REPORT CPT Code: 09778 Symptoms Other : Swelling LEFT UPPER EXTREMITY: Imaging of the subclavian, axillary, brachial, radial and ulnar arteries is within normal limits. There is no evidence of stenosis or occlusions within these segments. The Doppler waveforms of the left upper extremity are multiphasic, consistent with normal inflow to the left upper extremity.
--- NOTE | 2018-05-23 17:02 | Diagnostic Imaging Report ---
APPROVED REPORT CPT Code: 86695 Present Symptoms Comments: Swelling LEFT UPPER EXTREMITY : UPPER EXTREMITY: Venous imaging reveals patency of the internal jugular, subclavian, axillary and brachial veins. The cephalic and basilic veins are also patent. Doppler indicates normal spontaneous flow within these venous segments.
== END 2018-05-22 12:50 | DRG 871 ==
LOC: EDBD 23:49 → EDUNIT# 23:49 → EMR 23:59 → 2W 05-17 01:01 → EDBEDREQ 05-17 01:31 → 2E 05-19 06:30 → 4E 05-21 06:31
DX: A41.9 Sepsis, unspecified organism (principal); G92 Toxic encephalopathy; R57.1 Hypovolemic shock; L03.114 Cellulitis of left upper limb; N17.9 Acute kidney failure, unspecified; E87.0 Hyperosmolality and hypernatremia; E87.2 Acidosis; Z43.1 Encounter for attention to gastrostomy; M62.82 Rhabdomyolysis; I13.0 Hypertensive heart and chronic kidney disease with heart failure and stage 1 through stage 4 chronic kidney disease, or unspecified chronic kidney disease; I50.32 Chronic diastolic (congestive) heart failure; E44.1 Mild protein-calorie malnutrition; E87.5 Hyperkalemia; Z87.820 Personal history of traumatic brain injury; Z79.4 Long term (current) use of insulin; E86.0 Dehydration; I73.9 Peripheral vascular disease, unspecified; Z86.73 Personal history of transient ischemic attack (TIA), and cerebral infarction without residual deficits; Z89.021 Acquired absence of right finger(s); R13.10 Dysphagia, unspecified; G40.909 Epilepsy, unspecified, not intractable, without status epilepticus; E11.22 Type 2 diabetes mellitus with diabetic chronic kidney disease; N18.9 Chronic kidney disease, unspecified; E11.65 Type 2 diabetes mellitus with hyperglycemia; E83.39 Other disorders of phosphorus metabolism
CPT/HCPCS: 36415; 71045; 76770; 80048; 80053; 80202; 80299; 81003; 82550; 82553; 82565; 82962; 83605; 83690; 83735; 83880; 84100; 84132; 84484; 84550; 85025; 85610; 85730; 87040; 87081; 87086; 93005; 93306; 93926; 93971; 96361; 96374; 96375; 99291; C9399; J1815; S5561

== ENCOUNTER 2018-07-17 23:27 | Emergency (ER) | payer MEDICARE, MEDICAID ==
[~2018-07-17] VITALS: Ht 182.9 cm; Wt 97.5 kg
[~2018-07-17 23:27] MED LIST changes: +GABAPENTIN400 MG ORAL; +GABAPENTIN800 MG ORAL; +KEPPRA LIQ100 MG/1 M ORAL; +KLONOPIN1 MG ORAL; +NORVASC2.5 MG ORAL; +QUETIAPINE FUMA25 MG ORAL
[2018-07-17 23:40] VITALS: BP 129/87
[2018-07-18 01:06] LABS: BASOPHILS % (AUTO) 0.8 % (0.0-2.0); EOSINOPHILS % (AUTO) 3.4 % (0.0-3.0); HEMOGLOBIN 13.4 G/DL (14.2-18.0); LYMPHOCYTES % (AUTO) 41.7 % (20.0-45.0); MEAN CORPUSCULAR VOLUME 80 FL (80-99); MONOCYTES % (AUTO) 11.3 % (1.0-10.0); NEUTROPHILS % (AUTO) 42.8 % (45.0-75.0); PLATELET COUNT 158 K/UL (150-450); RED BLOOD COUNT 5.15 M/UL (4.70-6.10); RED CELL DISTRIBUTION WIDTH 15.1 % (11.6-14.8)
[2018-07-18 01:18] LABS: ANION GAP 15 mmol/L (5-15); BLOOD UREA NITROGEN 11 mg/dL (7-18); CALCIUM 8.8 MG/DL (8.5-10.1); CARBON DIOXIDE 20 MMOL/L (21-32); CHLORIDE 100 MMOL/L (98-107); CREATININE 0.9 MG/DL (0.55-1.30); POTASSIUM 3.9 MMOL/L (3.5-5.1); SODIUM 135 MMOL/L (136-145)
[2018-07-18 01:21] LABS: AMMONIA 28 umol/L (11-32)
[2018-07-18 01:23] LABS: ALANINE AMINOTRANSFERASE 25 U/L (12-78); ALBUMIN 3.4 G/DL (3.4-5.0); ALBUMIN/GLOBULIN RATIO 0.8 (1.0-2.7); ALKALINE PHOSPHATASE 95 U/L (46-116); ASPARTATE AMINO TRANSFERASE 23 U/L (15-37); BILIRUBIN,TOTAL 0.3 MG/DL (0.2-1.0)
[2018-07-18 01:40] VITALS: BP 120/88
[2018-07-18 04:30] VITALS: BP 128/79
[2018-07-18 04:45] VITALS: BP 128/79
--- NOTE | 2018-07-18 06:43 | Emergency Room Report ---
History of Present Illness General Chief Complaint: Altered Mental Status Source: Patient, Medical Record, EMS Present Illness HPI 58 year-old male presents ED for evaluation. Brought in by EMS for altered mental status. Was found screaming and yelling at [facility] facility tonight. History of schizophrenia. Upon arrival patient is agitated and yelling. States he is hungry. Denies fevers or chills. Denies chest pain or shortness of breath. Denies nausea or vomiting. Denies hearing voices. Denies alcohol or drug use. No other aggravating relieving factors. Denies any other associated symptoms Allergies: Coded Allergies: No Known Allergies (Unverified , 05/16/18) Patient History Past Medical History: DM, HTN, seizures Pertinent Family History: none Social History: Denies: smoking, alcohol use, drug use Reviewed Nursing Documentation: PMH: Agreed; PSxH: Agreed Nursing Documentation-PMH Hx Hypertension: Yes Hx Diabetes: Yes Hx Cancer: No Hx Gastrointestinal Problems: Yes - G-tube feeding,dysphagia Hx Dialysis: No - CKD Hx Seizures: Yes Hx Epilepsy: Yes Hx Dysphasia: Yes Review of Systems All Other Systems: negative except mentioned in HPI Physical Exam Vital Signs Date Time Temp Pulse Resp B/P (MAP) Pulse Ox O2 Delivery O2 Flow Rate FiO2 07/17/18 23:28 98.1 99 18 155/90 99 Room Air Sp02 EP Interpretation: reviewed, normal General Appearance: no apparent distress, alert, GCS 15, non-toxic Head: normocephalic, atraumatic Eyes: bilateral eye normal inspection, bilateral eye PERRL ENT: hearing grossly normal, normal pharynx, no angioedema, normal voice Neck: full range of motion, supple/symm/no masses Respiratory: chest non-tender, lungs clear, normal breath sounds, speaking full sentences Cardiovascular #1: regular rate, rhythm, no edema Cardiovascular #2: 2+ carotid (R), 2+ carotid (L), 2+ radial (R), 2+ radial (L) , 2+ dorsalis pedis (R), 2+ dorsalis pedis (L) Gastrointestinal: normal bowel sounds, non tender, soft, non-distended, no guarding, no rebound Rectal: deferred Genitourinary: normal inspection, no CVA tenderness Musculoskeletal: back normal, gait/station normal, normal range of motion, non- tender Neurologic: alert, oriented x3, responsive, motor strength/tone normal, sensory intact, speech normal Psychiatric: judgement/insight normal, memory normal, anxious Reflexes: 3+ bicep (R), 3+ bicep (L), 3+ tricep (R), 3+ tricep (L), 3+ knee (R) , 3+ knee (L) Skin: normal color, no rash, warm/dry, well hydrated Lymphatic: no adenopathy Medical Decision Making Diagnostic Impression: Primary Impression: Behavioral change ER Course Hospital Course 58-year-old M presents to ED with altered mental status. Active aggressively at SNF Differential diagnoses include: Psychosis, EtOH, drug abuse Clinical course patient placed on stretcher. On cafeteria monitor. After initial history, exam reveals a middle-aged male in no acute distress. On my exam patient is cooperative. States he has a mild headache. Denies hearing voices. Is asking for coffee which we provided. Is asking for food which he provided Labs reviewed-electrolytes okay, no leukocytosis, hemoglobin/hematocrit stable CXR - no acute process patient remains calm and cooperative during ED course. afebrile. nontoxic appearing. No requirement for sedative medications. Discussed with Dr. Serrano knows the patient well. Agrees that patient can be safely discharged back to [facility] facility [facility]. I feel this is a highly complex case requiring extensive working including EKG/Rhythm strip, Xray/CT/US, Blood/urine lab work, repeat exams while in ED, and administration of strong opiates/narcotics for pain control, admission to hospital or close patient follow up. Diagnosis - behavioral change Stable and discharged to SNF. Followup with PMD. Return to ED if symptoms recur or worsen Labs Test 07/18/18 00:50 White Blood Count 5.0 K/UL (4.8-10.8) Red Blood Count 5.15 M/UL (4.70-6.10) Hemoglobin 13.4 G/DL (14.2-18.0) Hematocrit 41.0 % (42.0-52.0) Mean Corpuscular Volume 80 FL (80-99) Mean Corpuscular Hemoglobin 26.0 PG (27.0-31.0) Mean Corpuscular Hemoglobin Concent 32.6 G/DL (32.0-36.0) Red Cell Distribution Width 15.1 % (11.6-14.8) Platelet Count 158 K/UL (150-450) Mean Platelet Volume 8.1 FL (6.5-10.1) Neutrophils (%) (Auto) 42.8 % (45.0-75.0) Lymphocytes (%) (Auto) 41.7 % (20.0-45.0) Monocytes (%) (Auto) 11.3 % (1.0-10.0) Eosinophils (%) (Auto) 3.4 % (0.0-3.0) Basophils (%) (Auto) 0.8 % (0.0-2.0) Sodium Level 135 MMOL/L (136-145) Potassium Level 3.9 MMOL/L (3.5-5.1) Chloride Level 100 MMOL/L (98-107) Carbon Dioxide Level 20 MMOL/L (21-32) Anion Gap 15 mmol/L (5-15) Blood Urea Nitrogen 11 mg/dL (7-18) Creatinine 0.9 MG/DL (0.55-1.30) Estimat Glomerular Filtration Rate > 60 mL/min (>60) Glucose Level 175 MG/DL (74-106) Calcium Level 8.8 MG/DL (8.5-10.1) Total Bilirubin 0.3 MG/DL (0.2-1.0) Aspartate Amino Transf (AST/SGOT) 23 U/L (15-37) Alanine Aminotransferase (ALT/SGPT) 25 U/L (12-78) Alkaline Phosphatase 95 U/L (46-116) Ammonia 28 umol/L (11-32) Total Protein 7.5 G/DL (6.4-8.2) Albumin 3.4 G/DL (3.4-5.0) Globulin 4.1 g/dL Albumin/Globulin Ratio 0.8 (1.0-2.7) Salicylates Level 1.3 ug/mL (2.8-20) Acetaminophen Level < 2 MCG/ML (10-30) Serum Alcohol < 3 mg/dL Chest X-Ray Diagnostic Results Chest X-Ray Diagnostic Results : Chest X-Ray Ordered: Yes # of Views/Limited/Complete: 1 View EP Interpretation: Yes Interpretation: no consolidation, no effusion, no pneumothorax, no acute cardiopulmonary disease Impression: No acute disease Electronically Signed by: Electronically signed by Edward Buenrostro MD Last Vital Signs Date Time Temp Pulse Resp B/P (MAP) Pulse Ox O2 Delivery O2 Flow Rate FiO2 07/18/18 04:45 98.6 84 18 128/79 100 Room Air Status: improved Disposition: XFER SNF Condition: Stable Referrals: NOT CHOSEN IPA/,REFERRING (PCP) Raul Del Cid MD Patient Instructions: Edward Degroot MD Jul 18, 2018 06:43
--- NOTE | 2018-07-18 11:40 | Diagnostic Imaging Report ---
Indication: Shortness of breath Technique: One view of the chest Comparison: 05/17/2018 Findings: Inspiration is suboptimal. Interstitial disease is seen in the left perihilar region and right upper lobe, new or increased since prior study. Pleural spaces are clear. The heart size is normal. There are median sternotomy sutures. Linear scarring is seen in the right midlung periphery and left lower lung periphery. Impression: Left perihilar and right upper lobe interstitial infiltrates versus edema Other findings as noted
== END 2018-07-18 05:08 ==
LOC: EDBD 23:27 → EMR 07-18 03:29
DX: F91.9 Conduct disorder, unspecified (principal); E11.9 Type 2 diabetes mellitus without complications; I12.9 Hypertensive chronic kidney disease with stage 1 through stage 4 chronic kidney disease, or unspecified chronic kidney disease; E11.22 Type 2 diabetes mellitus with diabetic chronic kidney disease; N18.9 Chronic kidney disease, unspecified
CPT/HCPCS: 36415; 71045; 80053; 82140; 85025; 99284; G0480; 80329

== ENCOUNTER 2019-07-25 17:59 | Inpatient (IN) | payer MEDICARE, MEDICAID ==
[~2019-07-25] VITALS: Ht 177.8 cm; Wt 90.3 kg
[~2019-07-25 17:59] MED LIST changes: -FISH OIL CAP1000 MG; +FISH OIL CAP1000 MG PO; -MULTIVITAMINS1 EAC8 GT; +MULTIVITAMINS1 EAC8 PO
--- NOTE | 2019-07-25 20:25 | NUR ---
NURSE NOTES: received report Claudia Savage from [facility], pt on his way to the hospital with the paramedics
--- NOTE | 2019-07-25 21:36 | NUR ---
NURSE NOTES: Pt arrived to the unit escorted by the paramedics on a gurney pt being admitted for altered mental status , pt has no s/s of distress. Pt was transferred to the the hospital bed. performed skin assessment, pt has perianal redness and sacral scars. skin otherwise intact has no R hand finger metatarsals, and no bilateral feet, skin is intact . Pt is a/O x2 , breaths even regular and unlabored on RA .Vitals T 98.4 BP 118/87 O2sat 95 at RA P75 denies any pain. Showed pt how to use the call light, bed put in low locked position and call light with in reach
[2019-07-25] MEDS ORDERED: Acetaminophen 650mg/20.3ml GT PRN (22:30)
[2019-07-25] MEDS ORDERED: LORazepam Inj 2mg/ml 1ml IV PRN (22:45)
[2019-07-25 23:37] LABS: BASOPHILS % (AUTO) 0.8 % (0.0-2.0); EOSINOPHILS % (AUTO) 4.4 % (0.0-3.0); HEMOGLOBIN 13.2 G/DL (14.2-18.0); LYMPHOCYTES % (AUTO) 37.5 % (20.0-45.0); MEAN CORPUSCULAR VOLUME 78 FL (80-99); MONOCYTES % (AUTO) 13.4 % (1.0-10.0); NEUTROPHILS % (AUTO) 43.9 % (45.0-75.0); PLATELET COUNT 165 K/UL (150-450); RED CELL DISTRIBUTION WIDTH 13.1 % (11.6-14.8); WHITE BLOOD COUNT 5.6 K/UL (4.8-10.8)
[2019-07-26] VITALS: BP 130/76
[2019-07-26 00:08] LABS: ALANINE AMINOTRANSFERASE 46 U/L (12-78); ALBUMIN 3.5 G/DL (3.4-5.0); ALBUMIN/GLOBULIN RATIO 0.9 (1.0-2.7); ALKALINE PHOSPHATASE 92 U/L (46-116); ANION GAP 11 mmol/L (5-15); ASPARTATE AMINO TRANSFERASE 25 U/L (15-37); BILIRUBIN,TOTAL 0.3 MG/DL (0.2-1.0); BLOOD UREA NITROGEN 18 mg/dL (7-18); CALCIUM 9.4 MG/DL (8.5-10.1); CARBON DIOXIDE 29 MMOL/L (21-32); CHLORIDE 104 MMOL/L (98-107); CREATININE 1.2 MG/DL (0.55-1.30); POTASSIUM 3.9 MMOL/L (3.5-5.1); SODIUM 143 MMOL/L (136-145)
[2019-07-26 04:00] VITALS: BP 115/77
[2019-07-26] MEDS: NovoLOG Insulin Flexpen SUBQ SCH ×4 (05:44→21:36)
[2019-07-26] MEDS ORDERED: LORazepam Inj 2mg/ml 1ml IV SCH (06:00)
--- NOTE | 2019-07-26 07:20 | NUR ---
NURSE NOTES: Report received from Little RN, rounds made. Patient AOx2, calm, no distress on RA. Noted patient scratching buttocks, assessed skin, patient scraped a small area on left buttocks, provided ping care, and applied Calazime skin barrier cream, patient repositioned, will continue skin precautions. Reinforced call light for safety, patient verbalized understanding. LH heplock intact. Bed in lowest position, will continue to monitor.
--- NOTE | 2019-07-26 07:57 | NUR ---
HAND-OFF: Report given to JEANA FOX.
[2019-07-26 08:00] VITALS: BP 121/80
[2019-07-26] MEDS: Aspirin EC 81mg tab ORAL SCH (08:55)
[2019-07-26] MEDS: Metoprolol Tartrate 50mg tab ORAL SCH ×2 (08:55→21:24)
[2019-07-26] MEDS: Multivitamin w/Minerals tab ORAL SCH (08:55)
[2019-07-26] MEDS: Docusate 100mg cap ORAL SCH ×2 (08:55→18:56)
[2019-07-26] MEDS: Sennosides 8.6mg tab ORAL SCH (08:55)
[2019-07-26] MEDS: Levemir Flexpen SUBQ SCH ×2 (08:58→21:37)
--- NOTE | 2019-07-26 09:30 | Diagnostic Imaging Report ---
EXAM: CT Head Without Intravenous Contrast CLINICAL HISTORY: AMS TECHNIQUE: Axial computed tomography images of the head/brain without intravenous contrast. CTDI is 53.4 mGy and DLP is 1098.9 mGy-cm. One or more of the following dose reduction techniques were used: automated exposure control, adjustment of the mA and/or kV according to patient size, use of iterative reconstruction technique. COMPARISON: CT head on 07/13/2016 FINDINGS: Brain: No acute infarct or hemorrhage identified. No extra-axial fluid collection. No mass effect or midline shift. Scattered areas of hypoattenuation in the supratentorial white matter likely represent chronic small vessel ischemic changes. Similar multifocal encephalomalacia in the inferior and superior aspects of the frontal and parietal lobes. Ventricles and sulci: Prominence of the ventricles and sulci is likely secondary to cerebral volume loss. Bones: Old fracture deformity or postoperative deformity in the posterior vertex. Subcutaneous tissues: Normal. Sinuses: Normal. No air-fluid levels or mucosal thickening. Mastoid air cells: Normal. Orbits: Grossly unremarkable. Other: Atherosclerotic calcifications in the intracranial vasculature. Cerumen in the external auditory canals. IMPRESSION: 1. No acute intracranial abnormality. If there is persistent concern for acute ischemia, consider further evaluation with MRI. 2. Chronic small vessel ischemic changes and cerebral volume loss. Similar multifocal encephalomalacia.
--- NOTE | 2019-07-26 10:15 | History and Physical Report ---
DATE OF ADMISSION: 07/25/2019 CHIEF COMPLAINT: Encephalopathy and delirium. HISTORY OF PRESENT ILLNESS: The patient is an unfortunate 59-year-old male. 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 He was transferred from a intermediate facility with complaints of confusion, combative and agitated behavior, and the patient is mostly bedbound or a chair. On the day of transfer, he became verbally abusive and aggressive, significantly different than his baseline. There are no reports of any falls. No fevers. No chills. In light of the patient's confusion and altered mentation, he is now admitted for further evaluation and care. He is unable to provide any history. PAST MEDICAL HISTORY: As above. PAST SURGICAL HISTORY: Includes amputation of some of the fingers. CURRENT MEDICATIONS: Reconciled and reviewed. ALLERGIES: None. FAMILY HISTORY: None. SOCIAL HISTORY: Negative for tobacco, ethanol, or drugs. REVIEW OF SYSTEMS: Unobtainable as the patient is confused. PHYSICAL EXAMINATION: VITAL SIGNS: Temperature 97.8, pulse 83, respirations 18, and blood pressure 121/80. GENERAL: The patient is a well-developed, no apparent distress. HEART: Regular rate and rhythm. LUNGS: Clear. ABDOMEN: Soft, nontender, nondistended. EXTREMITIES: Without clubbing, cyanosis, or edema. LABORATORY AND DIAGNOSTIC DATA: CT scan of the head are currently pending. ASSESSMENT: This is a 59-year-old male with a history of traumatic brain injury, seizure disorder, hypertension, diabetes, history of gangrene of the fingers, admitted with complaints of delirium. PROBLEM LIST: 1. Delirium, unclear etiology. Need to rule out infection or stroke. 2. Hypertension. 3. Diabetes. 4. History of gangrene. PLAN: 1. Followup pending labs, CT scan of the head. Further plan and care will be determined after review of pending tests. 2. Psychiatric consultation to assist with the patient's agitation, will be obtained. Raul Del Cid M.D. DR: LOUIE JOB#: [id number] CC:
[2019-07-26 12:00] VITALS: BP 121/82
[2019-07-26 16:00] VITALS: BP 111/76
--- NOTE | 2019-07-26 19:00 | NUR ---
NURSE NOTES: Patient sent down for CT head at 0900. Patient incontinent of urine, complete bath given, complete linen change, [place] applied to buttocks x3 throughout shift, skin precautions, repositioned, patient did not scratch buttocks anymore throughout shift. Condom cath applied at 1445, y/cl urine noted, urine culture and reflex obtained as ordered. Patient calm and cooperative throughout shift. Appetite good, feeds self, no cough with water or meals, swallows pills whole without difficulty.
--- NOTE | 2019-07-26 19:39 | NUR ---
HAND-OFF: Report given to Silva HILLS, rounds made. New condom cath applied by Katie HILLS, VRE rectal swab obtained by Silva HILLS. Patient repositioned. Patient stable.
--- NOTE | 2019-07-26 19:40 | NUR ---
NURSE NOTES: Received report from JEANA Wilson. rounds done. Repositioned for comfort.
[2019-07-26 19:49] LABS: APPEARANCE,URINE CLEAR; BILIRUBIN, URINE NEGATIVE (NEGATIVE); COLOR,URINE PALE YELLOW; GLUCOSE, URINE (UA) 4+ (NEGATIVE); KETONES,URINE NEGATIVE (NEGATIVE); LEUKOCYTE ESTERASE ,URINE NEGATIVE (NEGATIVE); NITRITE,URINE NEGATIVE (NEGATIVE); PH,URINE 5 (4.5-8.0); PROTEIN,URINE NEGATIVE (NEGATIVE); UROBILINOGEN,URINE NORMAL MG/DL (0.0-1.0)
[2019-07-26 20:00] VITALS: BP 123/72
--- NOTE | 2019-07-26 20:05 | NUR ---
NURSE NOTES: Patient alert, oriented x2. Bed in low position, locked, side rails up x3, call light within reach. Denies pain. Will continue to monitor. VRE swab obtained and sent to lab.
[2019-07-26] MEDS ORDERED: Tubing IV Secondary IV ONE (21:54)
[2019-07-26] MEDS ORDERED: NS 500ML ONE (21:54)
--- NOTE | 2019-07-26 23:00 | NUR ---
NURSE NOTES: Patient alert, MRSA swabs done. Patient watching TV. No distress noted.
[2019-07-27] VITALS: BP 127/78
[2019-07-27 04:00] VITALS: BP 124/81
[2019-07-27] MEDS: NovoLOG Insulin Flexpen SUBQ SCH ×4 (06:45→21:56)
--- NOTE | 2019-07-27 07:25 | NUR ---
NURSE NOTES: Report received from Silva HILLS, rounds made. Patient resting in semi-fowlers position in bed. Alert oriented x1, calm. No distress on RA. Denies pain. No NV. Will provide skin care, due to incontinent and apply new condom cath. No IV access. Patient remains safe. Call light in reach, bed in lowest position, will continue to monitor.
--- NOTE | 2019-07-27 07:30 | NUR ---
HAND-OFF: Report given to JEANA Wilson. Aware that patient took saline lock out. Also pulled condom catheter out and refused a new one.
[2019-07-27 08:00] VITALS: BP 131/77
[2019-07-27] MEDS: Aspirin EC 81mg tab ORAL SCH (09:52)
[2019-07-27] MEDS: Levemir Flexpen SUBQ SCH ×2 (09:52→21:55)
[2019-07-27] MEDS: Docusate 100mg cap ORAL SCH ×2 (09:53→18:03)
[2019-07-27] MEDS: Multivitamin w/Minerals tab ORAL SCH (09:53)
[2019-07-27] MEDS: Metoprolol Tartrate 50mg tab ORAL SCH ×2 (09:53→21:52)
[2019-07-27] MEDS: Sennosides 8.6mg tab ORAL SCH (09:54)
--- NOTE | 2019-07-27 11:14 | General Progress Note ---
Assessment/Plan Problem List: (1) Gangrene of hand ICD Codes: I96 - Gangrene, not elsewhere classified SNOMED: 806658351 (2) Dehydration ICD Codes: E86.0 - Dehydration SNOMED: 06647598 (3) Toxic metabolic encephalopathy ICD Codes: G92 - Toxic encephalopathy SNOMED: 361621727 (4) Behavioral change ICD Codes: R46.89 - Other symptoms and signs involving appearance and behavior SNOMED: 58344981 Status: stable, progressing Assessment/Plan: anxiolytics follow up head ct check urine studies psych eval bp rx Subjective ROS Limited/Unobtainable: No Constitutional: Reports: malaise, weakness HEENT: Reports: no symptoms Cardiovascular: Reports: no symptoms Respiratory: Reports: no symptoms Gastrointestinal/Abdominal: Reports: difficulty swallowing Genitourinary: Reports: no symptoms Neurologic/Psychiatric: Reports: pre-existing deficit, seizure Endocrine: Reports: no symptoms Hematologic/Lymphatic: Reports: anemia Allergies: Coded Allergies: No Known Allergies (Unverified , 05/16/18) All Systems: reviewed and negative except above Subjective no events. remains agitated and confused. pulled out iv. Objective Last 24 Hour Vital Signs Date Time Temp Pulse Resp B/P (MAP) Pulse Ox O2 Delivery O2 Flow Rate FiO2 07/27/19 09:53 69 131/77 07/27/19 09:53 69 131/77 07/27/19 08:00 97.7 69 20 131/77 (95) 97 07/27/19 04:00 98.1 70 20 124/81 (95) 95 07/27/19 00:00 98.6 78 16 127/78 (94) 95 07/26/19 21:24 77 123/72 07/26/19 21:00 Room Air 07/26/19 20:00 98.0 77 16 123/72 (89) 93 07/26/19 16:00 97.7 82 18 111/76 (88) 92 07/26/19 12:00 98.2 76 18 121/82 (95) 93 Intake and Output 07/26/19 07/27/19 19:00 07:00 Intake Total 1000 ml 740 ml Output Total 700 ml 450 ml Balance 300 ml 290 ml Intake Oral 1000 ml 740 ml Output Urine Total 700 ml 450 ml # Voids 3 2 Laboratory Tests 07/26/19 19:19: Urine Color Pale yellow, Urine Appearance Clear, Urine pH 5, Urine Specific [place] 1.015, Urine Protein Negative, Urine Glucose (UA) 4+H, Urine Ketones Negative, Urine Blood Negative, Urine Nitrite Negative, Urine Bilirubin Negative , Urine Urobilinogen Normal, Urine Leukocyte Esterase Negative Weight (Pounds): 199 General Appearance: WD/WN, alert, confused Neck: supple Cardiovascular: normal peripheral pulses, normal rate, regular rhythm Respiratory/Chest: chest wall non-tender, lungs clear, normal breath sounds, no respiratory distress Abdomen: normal bowel sounds, non tender, soft, no organomegaly, no mass Edema: no edema noted Arm (L), no edema noted Arm (R), no edema noted Leg (L), no edema noted Leg (R), no edema noted Pedal (L), no edema noted Pedal (R), no edema noted Generalized Edema: trace edema Neurologic: alert, responsive, disoriented Raul Del Cid MD Jul 27, 2019 11:14
[2019-07-27 12:00] VITALS: BP 118/78
--- NOTE | 2019-07-27 15:15 | NUR ---
NURSE NOTES: Dr. Del Cid notified of no IV access due to patient discontinued early this morning (0100 per coach wirer), orders for no need to restart IV and Ativan 2 mg PO every 4 hours PRN agitation, see orders. Skin care provided 0900, 1230, 1445, new condom cath applied at 0900 and 1445, y/cl to drainage bag. Buttocks redness noted, triad cream applied, repositioned patient every 2 hours, heels floating, skin remains intact. Will continue to monitor. Addendum: 07/27/19 at 1539 by Katie Goyal RN Redness to groin, skin intact, skin cleansed/pat dry, Triad cream applied.
[2019-07-27] MEDS: LORazepam 1mg tab ORAL PRN (15:36)
[2019-07-27 16:00] VITALS: BP 109/73
--- NOTE | 2019-07-27 19:45 | NUR ---
NURSE NOTES: Receive a report from JEANA Wilson. Round is done. Pt is asleep without acute distress. Call light within reach. Will continue to monitor.
--- NOTE | 2019-07-27 19:54 | NUR ---
HAND-OFF: Report given to Khloeo RN, rounds made.
[2019-07-27 20:00] VITALS: BP 112/68
--- NOTE | 2019-07-27 21:00 | NUR ---
NURSE NOTES: Pt is still asleep but easy to aroused. Has not eaten dinner yet. Offer food and finish night time snack slowly without aspiration. Denies pain. Talking himself non-sense but verbally responsive own needs in [place]. Repositioning for skin protection. Opticform on sacurm intact. Call light within reach. Bed is locked and lowest. Will continue to monitor.
[2019-07-28] VITALS: BP 107/77
[2019-07-28 04:00] VITALS: BP 118/85
--- NOTE | 2019-07-28 04:15 | Progress Note ---
DATE: 07/27/2019 CARDIOLOGY PROGRESS NOTE SUBJECTIVE: Still agitated and confused, combative with some care. OBJECTIVE: VITAL SIGNS: Blood pressure 131/77, pulse 69, respirations 20, and afebrile. digits and the amputation sites of the upper extremities clean and dry. HEENT: Oropharynx clear. NECK: Supple. LUNGS: Clear. CARDIAC: Regular. Normal S1, S2 with a fourth heart sound. ABDOMEN: Soft. EXTREMITIES: With no edema. DIAGNOSTIC DATA: CT scan of the brain, chronic ischemic small vessel disease. IMPRESSION: 1. Encephalopathy, etiology unclear. 2. Cerebrovascular disease. 3. Peripheral artery disease. 4. Dementia. 5. Hypertensive heart disease. 6. Hypomagnesemia. 7. Type 2 diabetes mellitus. 8. Chronic diastolic congestive heart failure. PLAN: 1. Recheck laboratory studies. 2. Insulin coverage by sliding scale. 3. Metabolic profile. 4. Cautious hydration. Morales Serrano M.D. DR: YAMILE JOB#: [id number] CC:
--- NOTE | 2019-07-28 05:51 | NUR ---
NURSE NOTES: Pt is awake and asking for food. Noted disorientation. Provide reality. Reconnect condom catheter for incontinent. Will continue to monitor.
[2019-07-28] MEDS: NovoLOG Insulin Flexpen SUBQ SCH ×4 (06:30→21:22)
[2019-07-28 06:35] LABS: BASOPHILS % (AUTO) 1.1 % (0.0-2.0); EOSINOPHILS % (AUTO) 4.3 % (0.0-3.0); HEMATOCRIT 41.2 % (42.0-52.0); HEMOGLOBIN 13.7 G/DL (14.2-18.0); LYMPHOCYTES % (AUTO) 37.1 % (20.0-45.0); MEAN CORPUSCULAR VOLUME 78 FL (80-99); MONOCYTES % (AUTO) 10.7 % (1.0-10.0); NEUTROPHILS % (AUTO) 46.7 % (45.0-75.0); PLATELET COUNT 183 K/UL (150-450); RED BLOOD COUNT 5.27 M/UL (4.70-6.10); WHITE BLOOD COUNT 4.9 K/UL (4.8-10.8)
[2019-07-28 07:24] LABS: CREATINE KINASE 83 U/L (26-308)
[2019-07-28 07:27] LABS: AMMONIA 17 umol/L (11-32)
[2019-07-28 07:29] LABS: ALANINE AMINOTRANSFERASE 49 U/L (12-78); ALBUMIN 3.5 G/DL (3.4-5.0); ALBUMIN/GLOBULIN RATIO 0.8 (1.0-2.7); ALKALINE PHOSPHATASE 62 U/L (46-116); ANION GAP 9 mmol/L (5-15); ASPARTATE AMINO TRANSFERASE 23 U/L (15-37); BILIRUBIN,TOTAL 0.4 MG/DL (0.2-1.0); BLOOD UREA NITROGEN 19 mg/dL (7-18); CALCIUM 9.5 MG/DL (8.5-10.1); CARBON DIOXIDE 24 MMOL/L (21-32); CHLORIDE 103 MMOL/L (98-107); CHOLESTEROL 176 MG/DL (< 200); HDL CHOLESTEROL 36 MG/DL (40-60); POTASSIUM 3.8 MMOL/L (3.5-5.1); SODIUM 136 MMOL/L (136-145); TRIGLYCERIDES 278 MG/DL (30-150)
--- NOTE | 2019-07-28 07:50 | NUR ---
HAND-OFF: Report given to JEANA Lugo. Round is done.
[2019-07-28 08:00] VITALS: BP 123/80
--- NOTE | 2019-07-28 08:01 | General Progress Note ---
Assessment/Plan Problem List: (1) Gangrene of hand ICD Codes: I96 - Gangrene, not elsewhere classified SNOMED: 243809674 (2) Dehydration ICD Codes: E86.0 - Dehydration SNOMED: 62686327 (3) Toxic metabolic encephalopathy ICD Codes: G92 - Toxic encephalopathy SNOMED: 602705803 (4) Behavioral change ICD Codes: R46.89 - Other symptoms and signs involving appearance and behavior SNOMED: 22758782 Status: stable, progressing Assessment/Plan: anxiolytics prn ct head - chronic changes urine studies nml psych eval pending sz rx bp rx dc planning tomorrow if stable Subjective ROS Limited/Unobtainable: No Constitutional: Reports: malaise, weakness HEENT: Reports: no symptoms Cardiovascular: Reports: no symptoms Respiratory: Reports: cough Gastrointestinal/Abdominal: Reports: no symptoms Genitourinary: Reports: no symptoms Neurologic/Psychiatric: Reports: emotional problems, pre-existing deficit, seizure Endocrine: Reports: no symptoms Hematologic/Lymphatic: Reports: no symptoms Allergies: Coded Allergies: No Known Allergies (Unverified , 05/16/18) All Systems: reviewed and negative except above Subjective no events. less agitated and confused. no fever or chills. no sob. paranoid. not as aggressive. Objective Last 24 Hour Vital Signs Date Time Temp Pulse Resp B/P (MAP) Pulse Ox O2 Delivery O2 Flow Rate FiO2 07/28/19 04:00 98.0 75 18 118/85 (96) 94 07/28/19 00:00 97.7 78 18 107/77 (87) 94 07/27/19 21:52 82 112/68 07/27/19 21:00 Room Air 07/27/19 20:00 97.8 82 17 112/68 (83) 94 07/27/19 16:00 98.3 74 20 109/73 (85) 93 07/27/19 12:30 Room Air 07/27/19 12:00 97.6 76 20 118/78 (91) 94 07/27/19 09:53 69 131/77 07/27/19 09:53 69 131/77 07/27/19 09:00 Room Air 07/27/19 08:00 97.7 69 20 131/77 (95) 97 Intake and Output 07/27/19 07/28/19 19:00 07:00 Intake Total 600 ml 400 ml Output Total 975 ml 450 ml Balance -375 ml -50 ml Intake Oral 600 ml 400 ml Output Urine Total 975 ml 450 ml # Voids 1 3 # Bowel Movements 1 Laboratory Tests 07/28/19 05:35: White Blood Count 4.9, Red Blood Count 5.27, Hemoglobin 13.7L, Hematocrit 41.2L , Mean Corpuscular Volume 78L, Mean Corpuscular Hemoglobin 26.0L, Mean Corpuscular Hemoglobin Concent 33.2, Red Cell Distribution Width 13.0, Platelet Count 183, Mean Platelet Volume 7.7, Neutrophils (%) (Auto) 46.7, Lymphocytes (% ) (Auto) 37.1, Monocytes (%) (Auto) 10.7H, Eosinophils (%) (Auto) 4.3H, Basophils (%) (Auto) 1.1, Sodium Level 136, Potassium Level 3.8, Chloride Level 103, Carbon Dioxide Level 24, Anion Gap 9, Blood Urea Nitrogen 19H, Creatinine 1.0, Estimat Glomerular Filtration Rate > 60, Glucose Level 204H, Calcium Level 9.5, Magnesium Level 1.7L, Total Bilirubin 0.4, Aspartate Amino Transf (AST/SGOT ) 23, Alanine Aminotransferase (ALT/SGPT) 49, Alkaline Phosphatase 62, Ammonia 17, Total Creatine Kinase 83, Total Protein 7.8, Albumin 3.5, Globulin 4.3, Albumin/Globulin Ratio 0.8L, Triglycerides Level 278H, Cholesterol Level 176, LDL Cholesterol 72, HDL Cholesterol 36L, Cholesterol/HDL Ratio 4.9H, Vitamin B12 Level [Pending], Folate [Pending] Weight (Pounds): 199 Objective General Appearance: WD/WN, alert, confused Neck: supple Cardiovascular: normal peripheral pulses, normal rate, regular rhythm Respiratory/Chest: chest wall non-tender, lungs clear, normal breath sounds, no respiratory distress Abdomen: normal bowel sounds, non tender, soft, no organomegaly, no mass Edema: no edema noted Arm (L), no edema noted Arm (R), no edema noted Leg (L), no edema noted Leg (R), no edema noted Pedal (L), no edema noted Pedal (R), no edema noted Generalized Edema: trace edema Neurologic: alert, responsive, disoriented Raul Del Cid MD Jul 28, 2019 08:01
--- NOTE | 2019-07-28 08:18 | NUR ---
NURSE NOTES: Patient is in bed awake and able to follow simple commands. Stable. Denies pain or SOB. Patient instructed to use call light for assistance, verbalized understanding. Patient is in bed in locked and lowest position with call light within reach. All safety measures provided. Will continue to monitor.
[2019-07-28] MEDS: Docusate 100mg cap ORAL SCH ×2 (08:48→18:02)
[2019-07-28] MEDS: Aspirin EC 81mg tab ORAL SCH (08:48)
[2019-07-28] MEDS: Levemir Flexpen SUBQ SCH ×2 (08:48→21:21)
[2019-07-28] MEDS: Multivitamin w/Minerals tab ORAL SCH (08:49)
[2019-07-28] MEDS: Metoprolol Tartrate 50mg tab ORAL SCH ×2 (08:49→21:20)
[2019-07-28] MEDS: Sennosides 8.6mg tab ORAL SCH (08:50)
--- NOTE | 2019-07-28 11:04 | NUR ---
NURSE NOTES: Transferred patient to [facility] as ordered. Stable. AAOx2. Denies pain or SOB. Breathing is even and unlabored. No visible signs of distress noted. Patient has all belongings. Skin assessment done with Juan Alberto HILLS. Patient is in bed in locked and lowest position. All safety measures provided. Bedside report given to Juan Alberto HILLS, plan of care endorsed.
--- NOTE | 2019-07-28 11:14 | NUR ---
NURSE NOTES patient is transferred from [address] [place] [address]. asleep in bed, and arousable, oriented x 1 name at this time. respiration is even and unlabored on room air. no facial grimace noted, denies any pain and discomfort. skin is warm and dry to touch. patient has condom catheter in place, drains pale yellow urine with no sediment noted. patient has no IV site at this time, per report from [facility] nurse is aware. patient is made comfortable in bed. placed call light within reach. patient wants to sleep at this time. will continue to observe patient's status
--- NOTE | 2019-07-28 11:31 | Diagnostic Imaging Report ---
Indication: Dyspnea Comparison: 07/18/2018 A single view chest radiograph was obtained. Findings: Mild pulmonary vascular congestion suspected although the lung volumes are quite low currently, which limits interpretation. There is mild left basal atelectasis. Heart is normal in size. Sternotomy noted. Bones are unremarkable. IMPRESSION: Mild pulmonary vascular congestion suspected.
[2019-07-28 12:00] VITALS: BP 119/76
[2019-07-28 16:00] VITALS: BP 120/87
[2019-07-28] MEDS: HYDROcodone/Acetamin 5/325 tab ORAL PRN ×2 (17:03→21:18)
--- NOTE | 2019-07-28 19:00 | NUR ---
NURSE NOTES: made attempt to take picture of patient's sacral redness. patient refuse, educated patient the need for taking picture of his skin. patient still noncompliant. patient also refused sacral area to be covered with optifoam dressing.
--- NOTE | 2019-07-28 19:44 | NUR ---
AMA: SEE AMA FORM.
--- NOTE | 2019-07-28 19:45 | NUR ---
HAND-OFF: Report given to lorraine.
--- NOTE | 2019-07-28 19:51 | NUR ---
NURSE NOTES: Received report from JEANA Avendano. AAO x 1, confused, on room air, resting in bed. No IV access noted and MD aware. Pt refused condom cath and optifoam on sacral redness. No acute distress noted. Fall education given. Contact precaution maintained. Bed locked, lowest position, alarm on ,side rails up, call light within reach. will continue to monitor.
[2019-07-28] MEDS ORDERED: TOUJEO SOL300 UNIT/1 SQ (20:21)
[2019-07-28] MEDS ORDERED: FENOFIBRATE130 MG ORAL (20:21)
[2019-07-28] MEDS ORDERED: ATORVASTATIN CA40 MG ORAL (20:21)
[2019-07-28] MEDS ORDERED: ACETAMINOPHEN325 M1 ORAL (20:21)
[2019-07-28] MEDS ORDERED: Fleet's Enema 133ml RECTAL ONE (22:15)
[2019-07-29] VITALS: BP 129/89
[2019-07-29] MEDS ORDERED: Fleet's Enema 133ml RECTAL ONE (01:15)
[2019-07-29] MEDS: LORazepam 1mg tab ORAL PRN (02:16)
--- NOTE | 2019-07-29 02:30 | NUR ---
NURSE NOTES: Pt is aggressive, agitated, yelling at staffs, and trying to get out of bed. Emergency soft restraints bilaterally applied. Left message Dr. Del Cid. RN pulled out ativan IV from pyxis but no IV access noted. Ativan IV wasted and ativan PO given. Charge nurse aware. Set up bed alarm zone 2. Will continue to monitor. Addendum: 07/29/19 at 0354 by NANDA ALLEN RN RN NURSE NOTES: Received order haldol 5mg IM once and bilateral soft restraints.
[2019-07-29] MEDS ORDERED: Haloperidol 5mg/ml Inj IM SCH (04:00)
--- NOTE | 2019-07-29 05:06 | NUR ---
NURSE NOTES: Pt becomes stable after giving ativan and haldol. No need to apply restraints at this time. Will monitor closely.
[2019-07-29] MEDS: NovoLOG Insulin Flexpen SUBQ SCH ×3 (06:12→17:35)
--- NOTE | 2019-07-29 06:30 | Consultation ---
DATE OF CONSULTATION: 07/28/2019 HISTORY OF PRESENT ILLNESS: The patient is a 59-year-old male with a history of multiple medical issues including traumatic brain injury, gangrene of his fingers, hypertension, and diabetes who has been admitted to the hospital due to confusion and agitation. The patient during the evaluation was calm and cooperative. According to self, he has episodes of agitation. The patient was started on Seroquel. He has been taking Seroquel 75 mg t.i.d. as well as Klonopin. Today, he is a poor historian, unable to provide any meaningful history. He did not know the date. PAST PSYCHIATRIC HISTORY: Dementia with behavior disturbance. PAST MEDICAL HISTORY: Significant for diabetes mellitus, cellulitis , pneumonia, and gangrene. ALLERGIES: No known drug allergies. SUBSTANCE ABUSE HISTORY: No known history of illicit drug use or alcohol. MENTAL STATUS EXAMINATION: The patient is alert and disoriented. Mood is anxious. Affect is flat. Thought process is concrete. Thought content, no suicidal or homicidal ideation. Cognition is impaired. Insight and judgment are limited. ASSESSMENT: Happy I Acute toxic encephalopathy. Happy II Deferred. Happy III As above. Happy IV Low. Happy V PLAN: 1. Change to Klonopin 1 mg p.o. at bedtime. 2. Seroquel 75 t.i.d. 3. Continue to follow and readjust the medications. Pamela Goddard M.D. DR: GHADA JOB#: [id number] CC:
--- NOTE | 2019-07-29 07:00 | Progress Note ---
DATE: 07/28/2019 CARDIOLOGY PROGRESS NOTE SUBJECTIVE: The patient is more cooperative, not as aggressive, and less paranoid. PHYSICAL EXAMINATION: VITAL SIGNS: Afebrile, blood pressure 118/85, pulse 75, and respirations 18. Baseline amputated sites on the upper extremities. LUNGS: Clear. CARDIAC: Regular. Normal S1, S2 with a fourth heart sound. ABDOMEN: Soft. EXTREMITIES: No edema. LABORATORY DATA: Urinalysis with mixed gram-positive organisms. White count 4.9, hemoglobin 13.7. Potassium 3.8, BUN 19, creatinine 1, magnesium 1.7. Total cholesterol 176 with LDL 72. B12 normal of 564. Folate decreased at 6.6. IMPRESSION: 1. Metabolic encephalopathy. 2. Peripheral artery disease. 3. Hypomagnesemia. 4. Folate deficiency. 5. Cerebrovascular disease with history of CVA and dementia. PLAN: 1. Folic acid replacement. 2. IV magnesium replacement. 3. Continue gemfibrozil with triglyceride management. Morales Serrano M.D. DR: YAMILE JOB#: [id number] CC:
--- NOTE | 2019-07-29 07:30 | NUR ---
HAND-OFF: Report given to JEANA Avendano. Endorsed high fall risk status to oncoming shift. Frequent rounding continues for pt safety.
--- NOTE | 2019-07-29 07:49 | NUR ---
NURSE NOTES: received patient in the bed asleep. breathing is even and unlabored on room air. skin is warm and dry to touch. bed alarm is in-place, bed is in lock position. call light is within reach. No acute distress noted at this time.
[2019-07-29 08:00] VITALS: BP 118/78
[2019-07-29] MEDS: Multivitamin w/Minerals tab ORAL SCH (09:25)
[2019-07-29] MEDS: Aspirin EC 81mg tab ORAL SCH (09:26)
[2019-07-29] MEDS: Sennosides 8.6mg tab ORAL SCH (09:26)
[2019-07-29] MEDS: Docusate 100mg cap ORAL SCH ×2 (09:26→17:32)
[2019-07-29] MEDS: Metoprolol Tartrate 50mg tab ORAL SCH (09:26)
[2019-07-29] MEDS: Levemir Flexpen SUBQ SCH (09:32)
[2019-07-29 12:00] VITALS: BP 147/86
[2019-07-29] MEDS: HYDROcodone/Acetamin 5/325 tab ORAL PRN (15:21)
[2019-07-29 16:00] VITALS: BP 139/78
--- NOTE | 2019-07-29 16:10 | NUR ---
*-*DISCHARGE PLANNING*-* PATIENT HAS BEEN REFERRED BACK TO: [facility] P: [phone] F: [phone] *--CLINICALS FAXED--
--- NOTE | 2019-07-29 17:02 | NUR ---
*-*DISCHARGE PLANNED*-* PATIENT IS BEING ACCEPTED AND DISCHARGED BACK TO: [facility] P: [phone] F: [phone] RM# 12.D [facility] [id number] EAT 5:45PM/1745PM
--- NOTE | 2019-07-29 17:45 | Discharge Summary ---
DATE OF ADMISSION: 07/25/2019 DATE OF DISCHARGE: 07/29/2019 ADMISSION DIAGNOSES: 1. Encephalopathy. 2. Rule out toxic metabolic encephalopathy. 3. Rule out stroke. 4. Rule out seizures. 5. Hypertension. 6. Peripheral artery disease. 7. Diabetes. 8. History of traumatic brain injury. 9. Hypertension. 10. Seizure disorder. DISCHARGE DIAGNOSES: 1. Encephalopathy. 2. Rule out toxic metabolic encephalopathy. 3. Rule out stroke. 4. Rule out seizures. 5. Hypertension. 6. Peripheral artery disease. 7. Diabetes. 8. History of traumatic brain injury. 9. Hypertension. 10. Seizure disorder. HOSPITAL COURSE: The patient was admitted with complaints of altered mental status. He had a CAT scan of the head that showed chronic changes. Urinalysis was negative. Electrolytes also were normal. The patient required IV and IM anxiolytics because of severe agitation, combative behavior. This seemed to improve with conservative treatment. On discharge, he was stable. The patient was tolerating p.o.'s. He will be discharged back to the group home facility for close followup. DISCHARGE MEDICATIONS: Please see discharge medication list for discharge medications. DIET: Cardiac diet. ACTIVITIES: Ad-felipe. FOLLOWUP: The patient will follow-up in 1 to 2 days at the group home facility. Raul Del Cid M.D. DR: JORDAN JOB#: [id number] CC:
--- NOTE | 2019-07-29 19:36 | NUR ---
HAND-OFF: Report given to Ben. Also endorsed to Ben about patient transfer to [facility].
--- NOTE | 2019-07-29 19:54 | NUR ---
NURSE NOTES: Pt D/C to [facility] @ 1950 on stable condition. Pt is awake, alert. Endorsed high fall risk status to transporting people. Belongings verified and send with pt.
--- NOTE | 2019-07-30 03:30 | Progress Note ---
DATE: 07/29/2019 SUBJECTIVE: The patient is doing better. Much improved. Less agitated. Mild delusional. No aggressive behavior noted. Compliant with the medication. MENTAL STATUS EXAMINATION: Alert and oriented times self and place. Mood is anxious. Affect is flat. Thought process is concrete. Thought content, no suicidal or homicidal ideation. ASSESSMENT: Stable. PLAN: We will continue to follow and readjust the medications. Pamela Goddard M.D. DR: GHADA JOB#: [id number] CC:
--- NOTE | 2019-07-30 04:30 | Progress Note ---
DATE: 07/29/2019 CARDIOLOGY PROGRESS NOTE SUBJECTIVE: The patient's mental status has returned to baseline. He is cooperative. He is tolerating oral intake. OBJECTIVE: VITAL SIGNS: Blood pressure 139/78, pulse 94, and respirations 17. LUNGS: Bilateral breath sounds. HEART: Regular rhythm and rate. Normal S1, S2. There is a fourth heart sound. ABDOMEN: Soft. EXTREMITIES: No edema. Amputated digit sites are clean and dry. IMPRESSION: 1. Encephalopathy, recovered. 2. Cerebrovascular disease with possible subcortical acute stroke. 3. Hypertensive heart disease. 4. Peripheral artery disease with digit amputations. 5. Type 2 diabetes mellitus. 6. History of traumatic brain injury. 7. Seizure disorder. PLAN: 1. Continue current medication regimen. 2. Continue close monitoring at the [facility] facility. 3. No signs of acute infection at this time. 4. Stable from cardiovascular standpoint. Morales Serrano M.D. DR: TEREZA JOB#: [id number] CC:
--- NOTE | 2019-07-30 04:45 | Consultation ---
DATE OF CONSULTATION: 07/25/2019 CARDIOLOGY CONSULTATION CONSULTING PHYSICIAN: Morales Serrano M.D. REFERRING PHYSICIAN: Raul Del Cid M.D. REASON FOR CONSULTATION: Cardiovascular evaluation in the setting of acute delirium and encephalopathy. 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 He has been residing at a longterm facility for some time. He became increasingly confused and combative with agitated behavior over the past day. The patient is usually bed-bound but has become verbally abusive, aggressive, and refusing care. He has not had any falls, head trauma, fevers, or chills. He has not had any cough, shortness of breath, or sputum production. He has not had any diarrhea or abdominal pain noted. PAST MEDICAL HISTORY: Hypertension, diabetes mellitus type 2, chronic kidney disease, traumatic brain injury, diabetic microangiopathy, dementia with agitation, hyperlipidemia, and prior history of amputations of the upper extremities. MEDICATIONS: Prior to admission, reviewed and reconciled. ALLERGIES: None. FAMILY HISTORY: Noncontributory. SOCIAL HISTORY: Not available at this time. The patient does not currently smoke or drink alcohol and is unable to get any illicit drugs. REVIEW OF SYSTEMS: Not obtainable. PHYSICAL EXAM: VITAL SIGNS: Blood pressure 130/76, pulse 78, respirations 18, and afebrile. HEENT: Conjunctivae are pink. Sclerae are anicteric. Oropharynx clear. LUNGS: Clear. CARDIAC: Regular rhythm and rate. Normal S1, S2 with a fourth heart sound. ABDOMEN: Soft and nontender. EXTREMITIES: With no edema. Palpable distal pulses. Several amputated fingers. LABORATORY DATA: White count 5.6 and hemoglobin 13. Sodium 143, potassium 3.9, bicarb 29, BUN 18, creatinine 1.2, and glucose 227. Magnesium 1.7. Pro-natriuretic peptide 171. TSH 0.77. IMPRESSION: 1. Acute encephalopathy, rule out infection. 2. Type 2 diabetes mellitus with hyperglycemia. 3. Hypomagnesemia. 4. Chronic diastolic congestive heart failure. 5. Hypertensive heart disease. 6. History of traumatic brain injury. 7. Dementia. 8. Agitation. 9. Rule out acute cerebrovascular insult. PLAN: 1. Imaging studies of the brain. 2. Followup urine studies. 3. Titrate antimicrobials. 4. Maintain anti-platelet therapy. 5. Insulin coverage by sliding scale. 6. IV magnesium. 7. Metabolic profile. 8. We will follow and make further adjustment to care plan once diagnostic studies are available. 9. Consider toxicology screen as well. Morales Serrano M.D. DR: TEREZA JOB#: [id number] CC: [facility]
--- NOTE | 2019-07-30 07:00 | Progress Note ---
DATE: 07/26/2019 CARDIOLOGY PROGRESS NOTE SUBJECTIVE: The patient is agitated, confused, combative, refusing medications. PHYSICAL EXAMINATION: VITAL SIGNS: Blood pressure 127/78, pulse 78, respirations 16. Afebrile. LUNGS: Bilateral breath sounds. HEART: Regular rhythm and rate. Normal S1, S2. ABDOMEN: Soft. EXTREMITIES: No edema. Digits of the upper extremities are amputated. NEUROLOGIC: Moderate cognitive impairment. LABORATORY DATA: No new labs. IMPRESSION: Encephalopathy, etiology unclear. Considerations would include acute cerebrovascular insult, metabolic or toxic event or psychiatric-related decompensation. Other medical issues include hypertensive heart disease, diastolic dysfunction with chronic congestive heart failure, seizure disorder, peripheral artery disease with amputations, type 2 diabetes mellitus, and history of traumatic brain injury. PLAN: 1. Metabolic profile. 2. Follow up imaging of the brain. 3. Follow up urine culture. 4. Titrate cardiovascular regimen based on clinical parameters. Morales Serrano M.D. DR: Flynn JOB#: [id number] CC:
== END 2019-07-29 19:50 | DRG 92 ==
LOC: UNDOADMIN 21:25 → 3E 21:25 → 4E 07-28 11:15
DX: G92 Toxic encephalopathy (principal); I96 Gangrene, not elsewhere classified; F03.91 Unspecified dementia, unspecified severity, with behavioral disturbance; F05 Delirium due to known physiological condition; I13.0 Hypertensive heart and chronic kidney disease with heart failure and stage 1 through stage 4 chronic kidney disease, or unspecified chronic kidney disease; I50.32 Chronic diastolic (congestive) heart failure; E11.52 Type 2 diabetes mellitus with diabetic peripheral angiopathy with gangrene; E86.0 Dehydration; Z87.820 Personal history of traumatic brain injury; G40.909 Epilepsy, unspecified, not intractable, without status epilepticus; I73.9 Peripheral vascular disease, unspecified; Z89.029 Acquired absence of unspecified finger(s); E11.22 Type 2 diabetes mellitus with diabetic chronic kidney disease; N18.9 Chronic kidney disease, unspecified; E11.51 Type 2 diabetes mellitus with diabetic peripheral angiopathy without gangrene; E78.5 Hyperlipidemia, unspecified; E11.65 Type 2 diabetes mellitus with hyperglycemia; E83.42 Hypomagnesemia
CPT/HCPCS: 36415; 70450; 71045; 80053; 80061; 80299; 81003; 82140; 82550; 82607; 82746; 82962; 83735; 83880; 84443; 84484; 85025; 87081; 87086; 93005; J1815; S5561